=== PATIENT | male | born 1950 | race Caucasian/White ===

== ENCOUNTER 2017-06-05 11:30 | Outpatient (RCR) | payer SELFPAY ==
[2017-05-12 01:25] VITALS: BP 148/85; PULSE 85; RESP 16; TEMP 36.8; BMI 23.0
[2017-05-16 10:03] VITALS: BP 137/78; PULSE 81; RESP 20; TEMP 36.8; BMI 23.0
--- NOTE | 2017-05-16 15:25 | PCM.WC.PN ---
(1) Toe ulcer, right Status: Acute Current Visit: Yes Code(s): L97.519 - Non-pressure chronic ulcer of other part of right foot with unspecified severity (2) Peripheral arterial disease Status: Chronic Current Visit: Yes Code(s): I73.9 - Peripheral vascular disease, unspecified (3) Tobacco abuse Status: Chronic Current Visit: Yes Code(s): Z72.0 - Tobacco use Type of Wound Date of Service: 05/17/17 Chief Complaint: Right Great toe pain and Ulcer. History of Wound: Mr. Sinclair is a 67yo with past medical history of peripheral arterial disease status post left lower extremity stenting and tobacco abuse who is here for a second opinion and wound care. He was in a stable state of health until about 1 month ago when he noted an ingrowing toenail of his right great toe which he poked at. He Subsequently developed a blister which progressed to 2 blisters that ended up rupturing. He had tried to manage it at home with [id number] antibiotic ointment however he presented to his primary care provider after he continued having worsening toe pain and poor wound healing. He was referred to podiatry and per patient and his daughter, amputation of his toe was suggested. They however do not agree with his assessment and so are here to seek other possibilities. They had been previously referred to vascular surgery however this has not been followed through. After the stenting of his left lower extremity, stenting of his right lower extremity was also recommended however, patient did not follow through. He has actively smoked a pack a day for greater than 55 years. He is currently just on a baby aspirin daily. At some point, there was puslike discharge from the wound site and patient had been on Keflex which he has now completed. He otherwise feels well and denies chills, fever, nausea or vomiting. Progress of Wound: Mr. Sinclair presents here today for follow up. He is yet to be seen by a Vascular surgeon. Right great toe is still very tender. He states that they have not noted any worsening however no improvement also. He denies any discharge from the site. They have been dressing daily with Aquacel. He is still currently smoking every day. - Physical Exam Vital Signs Temp Pulse Resp BP 98.2 F 81 20 H 137/78 H 05/16/17 10:03 05/16/17 10:03 05/16/17 10:03 05/16/17 10:03 General: Alert, Oriented x3, Cooperative HEENT: Atraumatic, Normocephalic Oral: Moist Mucosa Neck: Supple, No JVD Cardiovascular: Regular rate, Regular Rhythm, Normal S1, Normal S2 Abdomen: Soft, Non Tender Extremities: No cyanosis, No edema Wound Measurements and Assessment - Nurse 1 - General Ulcer Measurement Start: 05/16/17 09:56 Freq: Status: Active Protocol: Activity Type Activity Date Activity User E-Sign Co-Sign Detail Recorded Client Recorded Date Recorded By Document 05/16/17 10:03 DL [id number] 05/16/17 10:08 DL 05/16/17 10:03 Wound Center Nurse 1 [Ulcer Assessment Protocol: WC.WD.LOC] #1- RT GR TOE -Current Size (cm) - Length 1.6 -Current Size (cm) - Width 2 -Current Size (cm) - Depth 0.1 -Total Square Cm 3.2 -Photo Taken No -Exudate Amt None Present (0 %) -Wound Margin Distinct, Outline Attached -Granulation Amt None Present (0 %) -Necrosis Amt Large (67-100%) -Necrotic Tissue Type Eschar -Structure Exposed N/A -Texture (Denisa-wound Skin Appearance) No Abnormality -Moisture (Denisa-wound Skin Appearance No Abnormality ) -Color (Denisa-wound Skin Appearance) Erythema -Temperature (Denisa-wound Skin No Abnormality Appearance) (Pt Warm) -Tenderness on Palpation (Denisa-wound Yes Skin Appearance) -Ulcer Cleansing Rinsed/ Irrigated with Saline -Foul Odor after Cleansing No -Anesthetic Used 4% Lidocaine Solution - Nurse 2 - General Ulcer CM Notes Start: 05/16/17 09:56 Freq: Status: Active Protocol: Activity Type Activity Date Activity User E-Sign Co-Sign Detail Recorded Client Recorded Date Recorded By Document 05/16/17 12:01 DV [id number] 05/16/17 12:03 DV 05/16/17 12:01 Wound Center Nurse 2 [Procedure/Treatment] -Time 12:03 -Correct Patient Yes -Correct Side, Site, Position Yes -Correct Procedure Yes -Procedure Performed No [See Physician Procedure note for Specifics] Pain Scale: 0-10 Numeric [Pain] -Is Patient Pain Free? Yes Musculoskeletal: No Muscle Wasting Neurological: Cranial nerves II-XII grossly intact Debridement Note Post-Debridement Measurements/Treatment WC - Nurse 2 - General Ulcer CM Notes Start: 05/16/17 09:56 Freq: Status: Active Protocol: Activity Type Activity Date Activity User E-Sign Co-Sign Detail Recorded Client Recorded Date Recorded By Document 05/16/17 12:01 DV [id number] 05/16/17 12:03 DV 05/16/17 12:01 Wound Center Nurse 2 #1- RT GR TOE -Time 12:03 -Correct Patient Yes -Correct Side, Site, Position Yes -Correct Procedure Yes -Procedure Performed No Pain Scale: 0-10 Numeric Is Patient Pain Free? Yes No debridement was completed today - Patient needs immediate vascular assessment first. Assessment/Plan Active Problems Peripheral arterial disease (Chronic) Tobacco abuse (Chronic) Toe ulcer, right (Acute) Assessment: Left great toe ulcers most probably vascular ulcers in a patient with peripheral arterial disease. Plan: Mr. Sinclair is here today for follow-up however he is yet to see a vascular surgeon. He still experiences a lot of pain in his right great toe however there seems to be no worsening. Still necrotic tissue over both ulcers and so unstageable. He also still currently smoking. Vascular study reports from [facility] reviewed showed severe/critical PAD in his right great toe and recommendation at that time also was for vascular surgery intervention/hospitalization however patient declined. We will again refer him to Dr. Ziegler. No debridement was done at this time. I did explain to patient that he may require amputation of the digit if vascular intervention is not possible he is willing to follow this route if all is options have been exhausted. He was advised on the urgency of vascular evaluation/assesement. Again encouraged patient to quit smoking. Prescription for pain relief with ibuprofen 600 mg 3 times daily as needed was given. Continue Aquacel dressing over wound with loose Fady covering. over it. Follow-up in 1 week.
--- NOTE | 2017-05-16 15:35 | PN.PCM_ITS ---
(1) Toe ulcer, right Status: Acute Current Visit: Yes Code(s): L97.519 - Non-pressure chronic ulcer of other part of right foot with unspecified severity (2) Peripheral arterial disease Status: Chronic Current Visit: Yes Code(s): I73.9 - Peripheral vascular disease, unspecified (3) Tobacco abuse Status: Chronic Current Visit: Yes Code(s): Z72.0 - Tobacco use Type of Wound Date of Service: 05/17/17 Chief Complaint: Right Great toe pain and Ulcer. History of Wound: Mr. Sinclair is a 67yo with past medical history of peripheral arterial disease status post left lower extremity stenting and tobacco abuse who is here for a second opinion and wound care. He was in a stable state of health until about 1 month ago when he noted an ingrowing toenail of his right great toe which he poked at. He Subsequently developed a blister which progressed to 2 blisters that ended up rupturing. He had tried to manage it at home with [id number] antibiotic ointment however he presented to his primary care provider after he continued having worsening toe pain and poor wound healing. He was referred to podiatry and per patient and his daughter, amputation of his toe was suggested. They however do not agree with his assessment and so are here to seek other possibilities. They had been previously referred to vascular surgery however this has not been followed through. After the stenting of his left lower extremity, stenting of his right lower extremity was also recommended however, patient did not follow through. He has actively smoked a pack a day for greater than 55 years. He is currently just on a baby aspirin daily. At some point, there was puslike discharge from the wound site and patient had been on Keflex which he has now completed. He otherwise feels well and denies chills, fever, nausea or vomiting. Progress of Wound: Mr. Sinclair presents here today for follow up. He is yet to be seen by a Vascular surgeon. Right great toe is still very tender. He states that they have not noted any worsening however no improvement also. He denies any discharge from the site. They have been dressing daily with Aquacel. He is still currently smoking every day. - Physical Exam Vital Signs Temp Pulse Resp BP 98.2 F 81 20 H 137/78 H 05/16/17 10:03 05/16/17 10:03 05/16/17 10:03 05/16/17 10:03 General: Alert, Oriented x3, Cooperative HEENT: Atraumatic, Normocephalic Oral: Moist Mucosa Neck: Supple, No JVD Cardiovascular: Regular rate, Regular Rhythm, Normal S1, Normal S2 Abdomen: Soft, Non Tender Extremities: No cyanosis, No edema Wound Measurements and Assessment - Nurse 1 - General Ulcer Measurement Start: 05/16/17 09:56 Freq: Status: Active Protocol: Activity Type Activity Date Activity User E-Sign Co-Sign Detail Recorded Client Recorded Date Recorded By Document 05/16/17 10:03 DL [id number] 05/16/17 10:08 DL 05/16/17 10:03 Wound Center Nurse 1 [Ulcer Assessment Protocol: WC.WD.LOC] #1- RT GR TOE -Current Size (cm) - Length 1.6 -Current Size (cm) - Width 2 -Current Size (cm) - Depth 0.1 -Total Square Cm 3.2 -Photo Taken No -Exudate Amt None Present (0 %) -Wound Margin Distinct, Outline Attached -Granulation Amt None Present (0 %) -Necrosis Amt Large (67-100%) -Necrotic Tissue Type Eschar -Structure Exposed N/A -Texture (Denisa-wound Skin Appearance) No Abnormality -Moisture (Denisa-wound Skin Appearance No Abnormality ) -Color (Denisa-wound Skin Appearance) Erythema -Temperature (Denisa-wound Skin No Abnormality Appearance) (Pt Warm) -Tenderness on Palpation (Denisa-wound Yes Skin Appearance) -Ulcer Cleansing Rinsed/ Irrigated with Saline -Foul Odor after Cleansing No -Anesthetic Used 4% Lidocaine Solution - Nurse 2 - General Ulcer CM Notes Start: 05/16/17 09:56 Freq: Status: Active Protocol: Activity Type Activity Date Activity User E-Sign Co-Sign Detail Recorded Client Recorded Date Recorded By Document 05/16/17 12:01 DV [id number] 05/16/17 12:03 DV 05/16/17 12:01 Wound Center Nurse 2 [Procedure/Treatment] -Time 12:03 -Correct Patient Yes -Correct Side, Site, Position Yes -Correct Procedure Yes -Procedure Performed No [See Physician Procedure note for Specifics] Pain Scale: 0-10 Numeric [Pain] -Is Patient Pain Free? Yes Musculoskeletal: No Muscle Wasting Neurological: Cranial nerves II-XII grossly intact Debridement Note Post-Debridement Measurements/Treatment WC - Nurse 2 - General Ulcer CM Notes Start: 05/16/17 09:56 Freq: Status: Active Protocol: Activity Type Activity Date Activity User E-Sign Co-Sign Detail Recorded Client Recorded Date Recorded By Document 05/16/17 12:01 DV [id number] 05/16/17 12:03 DV 05/16/17 12:01 Wound Center Nurse 2 #1- RT GR TOE -Time 12:03 -Correct Patient Yes -Correct Side, Site, Position Yes -Correct Procedure Yes -Procedure Performed No Pain Scale: 0-10 Numeric Is Patient Pain Free? Yes No debridement was completed today - Patient needs immediate vascular assessment first. Assessment/Plan Active Problems Peripheral arterial disease (Chronic) Tobacco abuse (Chronic) Toe ulcer, right (Acute) Assessment: Left great toe ulcers most probably vascular ulcers in a patient with peripheral arterial disease. Plan: Mr. Sinclair is here today for follow-up however he is yet to see a vascular surgeon. He still experiences a lot of pain in his right great toe however there seems to be no worsening. Still necrotic tissue over both ulcers and so unstageable. He also still currently smoking. Vascular study reports from [facility] reviewed showed severe/critical PAD in his right great toe and recommendation at that time also was for vascular surgery intervention/ hospitalization however patient declined. We will again refer him to Dr. Ziegler. No debridement was done at this time. I did explain to patient that he may require amputation of the digit if vascular intervention is not possible he is willing to follow this route if all is options have been exhausted. He was advised on the urgency of vascular evaluation/assesement. Again encouraged patient to quit smoking. Prescription for pain relief with ibuprofen 600 mg 3 times daily as needed was given. Continue Aquacel dressing over wound with loose Fady covering. over it. Follow-up in 1 week.
== END 2017-06-09 23:59 ==
LOC: WC 11:30
PROVIDERS: Family Provider Student in an Organized Health Care Education/Training Program; PCP Student in an Organized Health Care Education/Training Program; Visit Provider Internal Medicine
DX: I73.9 Peripheral vascular disease, unspecified (principal); F17.200 Nicotine dependence, unspecified, uncomplicated; Z79.82 Long term (current) use of aspirin; L97.519 Non-pressure chronic ulcer of other part of right foot with unspecified severity
CPT/HCPCS: 99212; 99213; G0463

== ENCOUNTER → 2017-09-11 10:56 | Outpatient (CLI) | payer MEDICARE, MEDICAID, SELFPAY ==
--- NOTE | 2017-09-11 11:01 | EKG12_ITS ---
Test Reason : SOB Blood Pressure : / mmHG Vent. Rate : 082 BPM Atrial Rate : 082 BPM P-R Int : 130 ms QRS Dur : 098 ms QT Int : 376 ms P-R-T Axes : 076 016 069 degrees QTc Int : 439 ms Normal sinus rhythm with sinus arrhythmia Normal ECG Confirmed by CECY WASHINGTON, NOREEN ([id number]), market editor FILEMON LIN ([id number]) on 09/13/2017 12:51:03 PM Referred By: Kishore Shen Confirmed By:NOREEN SAM MD
[2017-09-11 12:18] LABS: ALB/GLOB Ratio 0.7 RATIO (0.9-2.4); AST(SGOT) 18 U/L (15-37); Alanine Aminotransfer ALT/SGPT 14 U/L (16-61); Albumin, Serum 3.3 g/dL (3.2-5.0); Alkaline Phosphatase 149 U/L (45-117); Anion Gap 8 (5-15); BUN 14 mg/dL (7-18); BUN/Creat Ratio 17.8 RATIO (10-20); Chloride 106 mmol/L (98-107); Creatinine, Serum 0.79 mg/dL (0.70-1.30); EST Glomerular Filtration Rate 105 mL/min (>60); Est Glom Filt Rate - Afr Amer 127 mL/min (>60); Globulin 4.7 g/dL (2.2-4.2); Glucose 89 mg/dL (74-106); Potassium 3.9 mmol/L (3.5-5.1); Sodium Level 140 mmol/L (136-145)
== END ==
PROVIDERS: Family Provider Internal Medicine; PCP Internal Medicine; Visit Provider Nurse Practitioner Family
DX: I73.9 Peripheral vascular disease, unspecified (principal); R06.00 Dyspnea, unspecified
CPT/HCPCS: 36415; 80053; 93005

== ENCOUNTER 2018-07-30 16:27 | Emergency (ER) | payer MEDICARE, MEDICAID, SELFPAY ==
[2018-07-18 13:16] VITALS: BMI 21.4
[2018-07-30 16:27] VITALS: BP 125/68; PULSE 76; RESP 16; TEMP 36.7; O2SAT 99; BMI 23.0
--- NOTE | 2018-07-30 17:16 | RAD_ITS ---
STUDY: X-RAY - RIGHT ANKLE REASON FOR EXAM: Male, 68 years old. Lateral pain TECHNIQUE: 3 view(s) of the ankle. COMPARISON: None. FINDINGS: Normal visualized distal tibia and fibula. Normal medial and lateral malleoli. Normal tibiotalar articulation and ankle mortise. Normal visualized talus and calcaneus. The visualized subtalar, talonavicular, calcaneocuboid and tarsal articulations are normal. The soft tissue structures are unremarkable. RAD/Ankle min 3 Views IMPRESSION: Normal x-ray examination of the ankle. Electronically Signed: Maurisio Christy MD at 17:50 EST , Service support ,
--- NOTE | 2018-07-30 18:17 | ED.DCSUM_ITS ---
- ER Visit Summary Date of Service: 07/30/18 Chief Complaint: [Pain to right foot and ankle] History of Present Illness: The patient is a 68 M [presents the emergency department complaint of pain in his right foot and ankle that has had for over 3 weeks. Patient states that 3 weeks ago he was cleaning snow when he developed pain in his right ankle. Patient was seen in the emergency department and noted to have DVT and required fasciotomy apparently. Patient also has history of claudication and peripheral artery disease. Patient sees Dr. Scot Yarbrough for his vascular issues. Patient is currently on Plavix as well as Eliquis. Patient states that his visiting nurse told him that he needed to get evaluated today because at times he is noted discoloration to the small toe of the right foot. Patient is already had his great toe surgically resected. Patient also had fasciotomy to the right lateral calf and has a wound VAC on it and several days ago they noticed some faint erythema inferior to the wound VAC and patient was started on antibiotics yesterday. Patient had no fever. He denies any injury to the ankle.] Physical Examination: [HEENT-PERRLA, EOMI. Cranial nerves II through XII grossly intact. TMs clear. Mucous membranes moist. No adenopathy. Cardiovascular-regular rate and rhythm without murmur or ectopy Lungs-clear to auscultation, chest wall stable without crepitus or subcu emphysema Abdomen-normoactive bowel sounds, soft, nontender, no rebound or rigidity, no peritoneal signs. Extremities-intact ?4, normal range of motion, normal pulses, atraumatic. Right foot-patient has surgically absent great toe. There is a small area of ecchymosis or dark discoloration to the nail of the small toe. Patient has diminished cap refill of 7 seconds to the toe. I am able to palpate a dorsal pedal pulse as well as a popliteal pulse however I am unable to palpate a posterior tibial pulse. There is minimal erythema inferior to the wound VAC and wound.] Test Results: [X-ray of the right ankle was obtained at the request the patient has he has been having pain and he states nobody is addressed his ankle pain. X-ray was normal.] Emergency Department Course and Treatment: [I discussed case with Dr. Scot Yarbrough who knows the patient.] Apparently patient had an appointment to see Dr. Yarbrough today and missed it. Patient stated that it was due to bad weather. At this point it was not felt that patient would need any further workup regarding his leg based on our findings here. Dr. Yarbrough asked that patient follow-up with his office next Saturday. Patient is known to have peripheral vascular disease and it is not felt that he has an acute occlusion. Treatment Plan: [Follow-up with Dr. Yarbrough in 1 week.] Disposition: [Discharged home in stable condition.] Impression: [Peripheral vascular disease Cellulitis right leg.] This note was generated with [employer] dictation software. It may contain incorrect words, spelling, and punctuation that were not noted in review of the chart prior to signing ED Disposition - Plan for ED Patient: Referrals: Cristopher Heart MD [Primary Care Provider] -
--- NOTE | 2018-07-30 18:21 | ED.DEP ---
ED Disposition - Plan for ED Patient: Instructions: Understanding Peripheral Artery Disease, ED Infec Skin Cellulitis Referrals: Scot Yarbrough MD [STAFF PHYSICIAN] - 5-7 Days
[2018-07-30 18:36] VITALS: BP 148/75; PULSE 68; RESP 14; RESP 17
== END 2018-07-30 18:37 | disposition home or self-care (01) ==
LOC: ED 17:30
PROVIDERS: Emergency Provider Emergency Medicine; Family Provider Internal Medicine; PCP Internal Medicine
DX: I73.9 Peripheral vascular disease, unspecified (principal); L03.115 Cellulitis of right lower limb; M25.571 Pain in right ankle and joints of right foot; J44.9 Chronic obstructive pulmonary disease, unspecified; Z86.718 Personal history of other venous thrombosis and embolism; Z79.01 Long term (current) use of anticoagulants; Z79.899 Other long term (current) drug therapy; Z87.891 Personal history of nicotine dependence
CPT/HCPCS: 73610; 99282

== ENCOUNTER 2018-08-06 12:59 | Outpatient (RCR) | payer MEDICARE, MEDICAID, SELFPAY ==
[2018-08-01 11:34] VITALS: BMI 23.0
[2018-08-06 13:29] VITALS: BP 144/84; PULSE 82; RESP 18; TEMP 37; BMI 23.0
--- NOTE | 2018-08-06 15:11 | HP.PCM_ITS ---
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 Status: Chronic Current Visit: Yes Code(s): L97.913 - Non-pressure chronic ulcer of unspecified part of right lower leg with necrosis of muscle (2) Edema leg Status: Chronic Current Visit: Yes Code(s): R60.0 - Localized edema (3) Venous insufficiency Status: Suspected Current Visit: Yes Code(s): I87.2 - Venous insufficiency (chronic) (peripheral) (4) Malnutrition Status: Chronic Current Visit: Yes Code(s): E46 - Unspecified protein- calorie malnutrition (5) Right leg DVT Status: Resolved Current Visit: Yes Code(s): I82.401 - Acute embolism and thrombosis of unspecified deep veins of right lower extremity (6) Tobacco abuse Status: Chronic Current Visit: Yes Code(s): Z72.0 - Tobacco use (7) Peripheral arterial occlusive disease Status: Chronic Current Visit: No Code(s): I77.9 - Disorder of arteries and arterioles, unspecified Comment: Ischemic RLE 07/04/18 History of Present Illness Date of Service: 08/06/18 Chief Complaint: Leg ulcer right History of Wound: Mr. Sinclair is a 68yo with past medical history of atrial fibrillation, peripheral arterial disease status post left lower extremity stenting and tobacco abuse presents for a new right leg ulcer with an onset within the last month. His pain is moderate. He had a reported deep venous thrombosis of the right leg and developed subsequent compartment syndrome. He underwent surgical fasciotomy on July 07 at [facility] and has a resultant wound. He was started on Keflex to address suspected cellulitis. His daughter reports he is previously seen a vascular interventionalist however does not recall if this was recently or if it was when he had his previous right great toe ulcer site and subsequent amputation. Patient does not remember. He does have signs of claudication symptoms. He denies rest paresthesias. He is been working on quitting smoking and has not smoked for about 1 month. He has been compliant with dressing care and changes this at home daily. He does not tolerate compression dressings very well. He is with his daughter and grandchild today. He continues on anticoagulation medication. 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) Tobacco abuse (Chronic) Bilateral claudication of lower limb (Chronic) Wound of right lower extremity (Chronic) Paroxysmal atrial fibrillation (Chronic) Peripheral arterial occlusive disease (Chronic) Ischemic RLE 07/04/18 Past Medical History: Atrial fibrillation, history of deep venous thrombosis and compartment syndrome Surgical History: - - stent placement, fasciotomy Allergies/Adverse Reactions: Allergies No Known Allergies Allergy (Verified 08/01/18 11:34) Home Medications: Ambulatory Orders Medication Instructions Recorded Clopidogrel Bisulfate [Plavix] 75 mg PO DAILY 05/30/17 diltiazem 30 mg tablet 30 mg PO TID 07/18/18 oxycodone-acetaminophen 2.5 mg-325 1 tab PO ONCE 07/18/18 mg tablet Lives: With Family Smoking Status: Former smoker Review of Systems Constitutional: Reports: Malaise. Denies: Anorexia, Fever, Weakness Cardiovascular: Reports: Claudication. Denies: Chest Pain, Orthopnea Respiratory: Denies: Shortness of Breath Gastrointestinal: Denies: Diarrhea, Nausea, Vomiting Musculoskeletal: Reports: Leg Pain. Denies: Foot Pain, Muscle pain Skin: Reports: Skin Changes, Wounds Neurological: Reports: Balance problems Hematologic/ Lymphatic: Reports: Hx of blood clot - Physical Exam Vital Signs Temp Pulse Resp BP 98.6 F 82 18 144/84 H 08/06/18 13:29 08/06/18 13:29 08/06/18 13:29 08/06/18 13:29 General: Alert, Oriented x3, Cooperative HEENT: Atraumatic Extremities: No cyanosis, Capillary Refill Less than 3 Seconds - All digits bilateral, No Calf Tenderness - Current negative Yen and Watts sign bilateral, Diminished Peripheral Pulses, Edema - Bilateral lower extremities mild Skin: Ulcer/ Wound - No purulence, erythema, streaking, odor, infection or probe to bone or janel necrosis to right leg. There is granulation tissue peripherally and exposed extensor muscle bellies to the mid right leg. There is no purulence on expression or janel maceration. There is no adjacent fluctuance or bogginess on palpation. The peripheral skin is atrophic with scant hair. Wound Measurements and Assessment WC - Nurse 1 - General Ulcer Measurement Start: 08/06/18 13:29 Freq: Status: Active Protocol: Activity Type Activity Date Activity User E-Sign Co-Sign Detail Recorded Client Recorded Date Recorded By Document 08/06/18 13:29 AN [id number] 08/06/18 13:55 AN 08/06/18 13:29 Wound Center Nurse 1 [Ulcer Assessment] #2 right lower leg -Current Size (cm) - Length 15.5 -Current Size (cm) - Width 5 -Current Size (cm) - Depth 0.7 -Total Square Cm 77.5 -Date of Last Picture (Recall this 08/06/18 field) -Epithelialization None Present -Tunneling No -Undermining/Tunneling No -Circular Undermining No -Classification - Thickness Full Thickness with Exposed Support Structure -Exudate Amt Medium -Exudate Type Serosanguineous -Wound Margin Distinct, Outline Attached -Granulation Amt Large (67-100%) -Granulation Quality Red -Slough/Fibrin Yes -Necrosis Amt Small (1-33%) -Necrotic Tissue Type Adherent Slough -Structure Exposed Tendon Fascia Muscle -Texture (Denisa-wound Skin Appearance) Assessed Localized Edema Scarring -Moisture (Denisa-wound Skin Appearance Assessed ) Maceration -Color (Denisa-wound Skin Appearance) Assessed Erythema -Temperature (Denisa-wound Skin Cool/Cold Appearance) -Tenderness on Palpation (Denisa-wound Yes Skin Appearance) -Ulcer Cleansing Rinsed/ Irrigated with Saline -Foul Odor after Cleansing Yes -Anesthetic Used 4% Lidocaine Solution [Edema Assessment] -Right Calf (cm) 33.2 -Right Ankle (cm) 21.5 -Left Calf (cm) 31.5 -Left Ankle (cm) 20 WC - Nurse 2 - General Ulcer CM Notes Start: 08/06/18 13:29 Freq: Status: Active Protocol: Activity Type Activity Date Activity User E-Sign Co-Sign Detail Recorded Client Recorded Date Recorded By Document 08/06/18 14:34 [email or web address] 08/06/18 14:39 08/06/18 14:34 Wound Center Nurse 2 [Procedure/Treatment] #2 right lower leg -Time 14:34 -Correct Patient Yes -Correct Side, Site, Position Yes -Correct Procedure Yes -Procedure Performed Yes -Type of Procedure Debridement -Clinical Debridement Muscle -Post Debridement Size (cm) - Length 15.6 -Post Debridement Size (cm) - Width 5.1 -Post Debridement Size (cm) - Depth 0.7 -Total Square Cm 79.56 -Wound/Ulcer Outcome Not Healed -Ulcer Cleansing Rinsed/ Irrigated with Saline -Foul Odor after Cleansing No -Bioengineered Tissue No -Bleeding Controlled with Pressure -Offloading No -Treatment Response Procedure Tolerated Well [See Physician Procedure note for Specifics] Pain Scale: 0-10 Numeric [Pain] -Is Patient Pain Free? Yes Musculoskeletal: No Tenderness to Palpation of Joints or Extremities, Muscle Wasting, Tenderness - Ulcer manipulation pain noted, - - Hallux amputation noted. Compartments remain soft to palpate right lower extremity Neurological: - - Lack of full epicritic sensation noted. Foot and ankle dermatomes are also equal to palpate bilateral lower extremity except there is slight diminished light touch abilities on the right plantar foot Psych/Mental Status: Normal Affect, Appropriate Debridement Note Post-Debridement Measurements/Treatment WC - Nurse 2 - General Ulcer CM Notes Start: 08/06/18 13:29 Freq: Status: Active Protocol: Activity Type Activity Date Activity User E-Sign Co-Sign Detail Recorded Client Recorded Date Recorded By Document 08/06/18 14:34 [id number] 08/06/18 14:39 08/06/18 14:34 Wound Center Nurse 2 #2 right lower leg -Time 14:34 -Correct Patient Yes -Correct Side, Site, Position Yes -Correct Procedure Yes -Procedure Performed Yes -Type of Procedure Debridement -Clinical Debridement Muscle -Post Debridement Size (cm) - Length 15.6 -Post Debridement Size (cm) - Width 5.1 -Post Debridement Size (cm) - Depth 0.7 -Total Square Cm 79.56 -Wound/Ulcer Outcome Not Healed -Ulcer Cleansing Rinsed/ Irrigated with Saline -Foul Odor after Cleansing No -Bioengineered Tissue No -Bleeding Controlled with Pressure -Offloading No -Treatment Response Procedure Tolerated Well Pain Scale: 0-10 Numeric Is Patient Pain Free? 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 Peripheral vascular disease. Leg edema and rule out venous insufficiency. Resolved cellulitis. Malnutrition suspected. Recent tobacco use. Right leg pain Plan: I reviewed and discussed his case. His medical records from prior [facility] medical facilities will be requested. Subcutaneous and tendon necrotic excisional debridement was performed as noted in the clinical panel. To change dressing every 3 days with Adaptic and a wound VAC set at 150 mmHg continuous was recommended; home health will be ordered to assist with this. He already has a wound VAC. He was reassured no local signs of infection or other ulcers were noted. To monitor for signs of infection he demonstrates understanding. To keep pressure off this ulcer by avoiding lying on his right lateral leg. To reduce unnecessary pressure by wearing a light Tubigrip compression garment. To optimize healing by taking nutritional supplementation, [place], a prescription was provided he was advised on proper use. Noninvasive vascular studies and venous reflux studies were ordered. I also request previous vascular notes from his other hospital that he initially obtained treatment at. Baseline labs were ordered including CBC and CMP and prealbumin and the results are pending. Additional antibiotics were not recommended at this time due to lack of signs of infection. To continue with primary care physician and previous surgeon for anticoagulation management. Upon continued stabilization of her review of diagnostic data, advance wound care product application operating room debridement will be considered. The purpose, indication, planned procedure options, and anticipated healing time management discussed in detail with the patient. I answered all his questions. To return to the wound healing center in 1 week or call sooner if is any questions or concerns.
[2018-08-06 18:20] LABS: Absolute Lymphocyte Count 1.99 X10^3/ul (0.83-4.51); Absolute Neutrophil Count 6.4 X10^3/uL (2.0-7.7); Basophil# 0.02 X10^3/uL; Basophil% 0.2 % (0-1); Eosinophil# 0.27 X10^3/uL; Eosinophils% 2.9 % (0-5); Hematocrit 39.5 % (40-54); Hemoglobin 12.9 g/dl (13.0-16.5); Lymphocyte # 1.99 X10^3/ul (4.0); Lymphocyte % 21.1 % (19-41); Mean Corp Hgb Conc 32.7 g/gl (32-36); Mean Corpuscular Hgb 27.7 pg (27.0-32.0); Mean Corpuscular Volume 84.8 fL (80-94); Mean Platelet Vol. 9.9 fl (6.2-12.0); Monocyte# 0.77 X10^3/uL; Monocyte% 8.1 % (0-10); Neutrophil # 6.37 X10^3/uL (2.7-7.7); Neutrophil % 67.4 % (47-70); Platelet Count 337 K/mm3 (150-450); RBC Distribution Width CV 16.1 % (11.6-14.6); RBC Distribution Width SD 49.3 fl (35.1-43.9); Red Blood Count 4.66 M/mm3 (4.6-6.2); White Blood Count 9.5 K/mm3 (4.4-11.0)
[2018-08-06 18:22] LABS: POSITIVE COUNT NO; POSITIVE DIFFERENTIAL NO; POSITIVE MORPHOLOGY NO
[2018-08-06 18:55] LABS: ALB/GLOB Ratio 0.6 RATIO (0.9-2.4); AST(SGOT) 24 U/L (15-37); Alanine Aminotransfer ALT/SGPT 21 U/L (16-61); Albumin, Serum 3.2 g/dL (3.2-5.0); Alkaline Phosphatase 147 U/L (45-117); Anion Gap 10 (5-15); BUN 22 mg/dL (7-18); BUN/Creat Ratio 23.2 RATIO (10-20); Calcium,Total 9.5 mg/dL (8.5-10.1); Chloride 103 mmol/L (98-107); Creatinine, Serum 0.95 mg/dL (0.70-1.30); EST Glomerular Filtration Rate 84 mL/min (>60); Est Glom Filt Rate - Afr Amer 102 mL/min (>60); Estimated Creatinine Clearance 83.42 ml/min; Globulin 5.8 g/dL (2.2-4.2); Glucose 80 mg/dL (74-106); Potassium 4.7 mmol/L (3.5-5.1); Prealbumin 22.2 mg/dL (20.0-40.0); Sodium Level 138 mmol/L (136-145)
== END 2018-08-07 23:59 ==
LOC: WC 12:59
PROVIDERS: Family Provider Internal Medicine; PCP Internal Medicine; Visit Provider Podiatrist
DX: I73.9 Peripheral vascular disease, unspecified (principal); R60.0 Localized edema; Z72.0 Tobacco use; L97.813 Non-pressure chronic ulcer of other part of right lower leg with necrosis of muscle; I87.2 Venous insufficiency (chronic) (peripheral); I48.91 Unspecified atrial fibrillation; Z86.718 Personal history of other venous thrombosis and embolism; Z79.02 Long term (current) use of antithrombotics/antiplatelets; Z87.891 Personal history of nicotine dependence
CPT/HCPCS: 11043; 11046; 80053; 84134; 85025; 97606; 99213; G0463

== ENCOUNTER 2018-08-13 10:44 | Inpatient (IN) | payer MEDICARE, MEDICAID, SELFPAY ==
[2018-08-13 09:22] VITALS: BMI 23.0
[2018-08-13 11:36] VITALS: BMI 21.4
[2018-08-13 11:41] VITALS: BMI 21.4
[2018-08-13 12:40] VITALS: BP 125/71; PULSE 61; RESP 16; TEMP 36.8; O2SAT 96
[2018-08-13] MEDS: HYDROcodone Bitartrate/Apap 5/325 Tablet PO (14:32)
--- NOTE | 2018-08-13 14:33 | HP.PCM_ITS ---
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 The patient is a 68 year old M who presents from podiatry office, Dr. Titus due to infected right leg wound. He has been following with wound center for right lower extremity wound following DVT/compartmental syndrome with fasciotomy 07/07/2018 at [facility]. He reports he completed antibiotic regimen approximately a week ago. He reports fever and chills at home as well as increased right lower extremity pain and odor. He was seen by podiatry today and referred to hospital for IV antibiotics and debridement. He lives with his daughter and reports he has been becoming progressively weak over the past few weeks. He reports he typically goes to the bathroom and back to bed with little other ambulation. He denies nausea, vomiting. Denies other associated complaints. He has a history of peripheral vascular disease, paroxysmal atrial fibrillation, history of tobacco use. 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) Tobacco abuse (Chronic) Bilateral claudication of lower limb (Chronic) Wound of right lower extremity (Chronic) Paroxysmal atrial fibrillation (Chronic) Peripheral arterial occlusive disease (Chronic) Ischemic RLE 07/04/18 Medical History: Medical History (Last Reviewed 08/01/18 @ 11:55 by Nick Hastings MD) 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) I05.9 Bicuspid aortic valve (Suspected) Q23.1 Bilateral claudication of lower limb (Chronic) I73.9 Wound of right lower extremity (Chronic) S81.801A Paroxysmal atrial fibrillation (Chronic) I48.0 Peripheral arterial occlusive disease (Chronic) I77.9 Ischemic RLE 07/04/18 COPD (chronic obstructive pulmonary disease) J44.9 GERD (gastroesophageal reflux disease) K21.9 Insomnia G47.00 Compartment syndrome T79.A0XA Nicotine abuse Z72.0 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 Allergies No Known Allergies Allergy (Verified 08/01/18 11:34) Home Medications: Ambulatory Orders Medication Instructions Recorded Clopidogrel Bisulfate [Plavix] 75 mg PO DAILY 05/30/17 oxycodone-acetaminophen 2.5 mg-325 1 tab PO Q6H PRN PRN 07/18/18 mg tablet Diltiazem HCl 120 mg PO DAILY 08/13/18 Rivaroxaban [Xarelto] 20 mg PO DAILY 08/13/18 Surgical History: Surgical History (Last Reviewed 08/13/18 @ 15:01 by PAM Monet) History of angioplasty of peripheral vessel Onset Date: 07/04/18 Z98.62 LLE stent and [employer] 2016 and RLE Thrombectomy and [employer] 2018 History of left heart catheterization Z98.890 History of vascular surgery Z98.890 RLE fasciotomy 06/2018 Surgical History: - - Right great toe amputation, dental surgery-teeth removal. Psychiatric History: No pertinent psych hx Lives: With Family Smoking Status: Former smoker Alcohol: None Drugs: None - *Family History Maternal Family History: Family History (Last Reviewed 08/13/18 @ 15:01 by PAM Monet) Mother Arthritis Diabetes Breast cancer Brother Hypertension Father CVA (cerebral vascular accident) Paternal Family History: Family History (Last Reviewed 08/13/18 @ 15:01 by PAM Monet) Mother Arthritis Diabetes Breast cancer Brother Hypertension Father CVA (cerebral vascular accident) Review of Systems Constitutional: Reports: Chills, Fever, Malaise, Weakness HEENT: Denies: Head Aches, Sinus Congestion, Sinus Drainage Cardiovascular: Denies: Chest Pain, Light Headedness, Palpitations, Syncope Respiratory: Denies: Cough, Shortness of breath at rest, Sputum production Gastrointestinal: Denies: Abdominal Pain, Nausea, Vomiting Genitourinary: Denies: Dysuria Musculoskeletal: Reports: - - RLE pain. Denies: Joint Pain, Joint Tenderness Skin: Reports: - - RLE wound Neurological: Denies: Numbness, Tingling, Focal weakness Psychiatric: Denies: Anxiety, Depression, Homicidal Ideations, Suicidal Ideations Hematologic/ Lymphatic: Denies: Easy Bruising, Easy Bleeding VTE Information - Inpt Only VTE Present on Admission: No VTE Mechan Device Prophylaxis: None VTE Pharm Prophylaxis ordered?: Yes - Physical Exam General: Alert, Oriented x3, Cooperative HEENT: Atraumatic, PERRLA, EOMI, Normocephalic Neck: Supple, No JVD, Negative Carotid Bruits Lungs: Clear to auscultation, Normal air movement Cardiovascular: Regular rate, Regular Rhythm, Normal S1, Normal S2, No murmurs Abdomen: Bowel Sounds Present, Soft, Non Tender, Non-Distended Extremities: No clubbing, No cyanosis, No edema Skin: - - RLE wound, dressing intact. Musculoskeletal: No Tenderness to Palpation of Joints or Extremities Neurological: Cranial nerves II-XII grossly intact, Neuro grossly intact Psych/Mental Status: Normal Affect, Appropriate Vital Signs Temp Pulse Resp BP Pulse Ox 98.2 F 61 16 125/71 H 96 08/13/18 12:40 08/13/18 12:40 08/13/18 12:40 08/13/18 12:40 08/13/18 12:40 Oxygen Delivery Method Room Air Weight: 158 lb Body Mass Index (BMI) 21.4 Assessment/Plan All Active Problems (Last Reviewed 08/01/18 @ 11:55 by Nick Hatsings MD) History of amputation of right foot (Resolved) Right leg DVT (Resolved) Toe ulcer, right (Resolved) 1. Chronic right leg wound, secondary to history of DVT status post thrombectomy as a result of compartment syndrome-fasciotomy 07/07/2018 at [facility]. Follows at wound center with Dr. Titus. Obtain blood cultures. IV vancomycin and IV Zosyn. Given recent DVT, patient will need bridged with heparin. Wound RN consult. Plan for debridement by Dr. Titus. Wound culture. Infectious disease consult. 2. PVD/PAD, s/p bilateral lower extremity stenting-on plavix. Follows with Dr. Yarbrough, vascular surgery. 3. Paroxysmal atrial fibrillation-continue Cardizem, Xarelto on hold. Patient reports this occurred briefly [facility] and has not recurred since, to his knowledge. 4. History of tobacco use-quit recently. Encouraged continued cessation. 5. History of DVT-on xarelto. 6. Debility, progressive weakness-secondary to #1. PT/OT. DVT prophylaxis-heparin subcu, Xarelto on hold given transfer surgery. This patient was seen by PAM Monet under the supervision of Dr. Ozuna.
[2018-08-13 15:43] LABS: Absolute Lymphocyte Count 1.66 X10^3/ul (0.83-4.51); Absolute Neutrophil Count 5.4 X10^3/uL (2.0-7.7); Basophil# 0.04 X10^3/uL; Basophil% 0.5 % (0-1); Eosinophil# 0.18 X10^3/uL; Eosinophils% 2.3 % (0-5); Hematocrit 36.9 % (40-54); Hemoglobin 11.8 g/dl (13.0-16.5); Lymphocyte # 1.66 X10^3/ul (4.0); Lymphocyte % 21.3 % (19-41); Mean Corpuscular Hgb 27.2 pg (27.0-32.0); Mean Platelet Vol. 8.8 fl (6.2-12.0); Monocyte# 0.43 X10^3/uL; Monocyte% 5.5 % (0-10); Neutrophil # 5.44 X10^3/uL (2.7-7.7); Platelet Count 383 K/mm3 (150-450); RBC Distribution Width CV 15.7 % (11.6-14.6); RBC Distribution Width SD 47.5 fl (35.1-43.9); Red Blood Count 4.34 M/mm3 (4.6-6.2); White Blood Count 7.8 K/mm3 (4.4-11.0)
[2018-08-13 15:46] LABS: POSITIVE COUNT NO; POSITIVE DIFFERENTIAL NO; POSITIVE MORPHOLOGY NO
[2018-08-13 15:49] LABS: ALB/GLOB Ratio 0.6 RATIO (0.9-2.4); AST(SGOT) 15 U/L (15-37); Alanine Aminotransfer ALT/SGPT 13 U/L (16-61); Alkaline Phosphatase 128 U/L (45-117); Anion Gap 9 (5-15); BUN 15 mg/dL (7-18); BUN/Creat Ratio 15.6 RATIO (10-20); Calcium,Total 8.9 mg/dL (8.5-10.1); Chloride 103 mmol/L (98-107); Creatinine, Serum 0.96 mg/dL (0.70-1.30); EST Glomerular Filtration Rate 83 mL/min (>60); Est Glom Filt Rate - Afr Amer 101 mL/min (>60); Estimated Creatinine Clearance 76.73 ml/min; Globulin 5.4 g/dL (2.2-4.2); Glucose 136 mg/dL (74-106); Potassium 3.8 mmol/L (3.5-5.1); Protein, Total 8.4 g/dL (6.4-8.2); Sodium Level 135 mmol/L (136-145)
--- NOTE | 2018-08-13 16:06 | PCM.RX.CS ---
Consult Pharmacy has been consulted to manage selected antiobiotic: Vancomycin Type of Consult: New start Suspected Infection: Other Labs: Sodium 135 mmol/L (136-145) L 08/13/18 15:15 Potassium 3.8 mmol/L (3.5-5.1) 08/13/18 15:15 Chloride 103 mmol/L (98-107) 08/13/18 15:15 Carbon Dioxide 23.0 mmol/L (21.0-32.0) 08/13/18 15:15 Anion Gap 9 (5-15) 08/13/18 15:15 BUN 15 mg/dL (7-18) 08/13/18 15:15 Creatinine 0.96 mg/dL (0.70-1.30) 08/13/18 15:15 Est GFR (MDRD) Af Amer 101 mL/min (>60) 08/13/18 15:15 Est GFR (MDRD) Non-Af 83 mL/min (>60) 08/13/18 15:15 BUN/Creatinine Ratio 15.6 RATIO (10-20) 08/13/18 15:15 Glucose 136 mg/dL (74-106) H 08/13/18 15:15 Weight used for dosin kg Estimated Creatinine Clearance: 77 mL/min Goal Trough: 15-20 mcg/mL Pharmacy Plan for Drug Dosing: Initial dose 1750mg IV x1 followed by 1000mg IV q12h and trough prior to 4th dose per policy. Pharmacy Service will continue to monitor and adjust dosing as required. Follow-Up Labs: Trough Vancomycin - 08/15 @ 0530
[2018-08-13] MEDS: Ensure Clear 120 ML Liquid PO ×2 (17:13→21:50)
[2018-08-13 17:51] VITALS: BP 117/78; PULSE 70; RESP 18; TEMP 36.7; O2SAT 98
[2018-08-13] MEDS: oxyCODONE 5 MG Tablet PO (19:35)
--- NOTE | 2018-08-13 21:00 | RAD_ITS ---
We are attempting to reach Tacho Baeza to discuss findings. An addendum with communication details will be sent when the communication is complete. STUDY: X-RAY - RIGHT TIBIA AND FIBULA REASON FOR EXAM: Male, 68 years old. Right lower leg wound TECHNIQUE: 2 view(s) of the tibia and fibula were obtained. COMPARISON: None. FINDINGS: Dorsal soft tissue lesion with air in the soft tissues. Stent in the proximal calf. No evidence of osteomyelitis. No osteolysis or periosteal reaction is seen. Arterial calcifications. RAD/Tibia & Fibula 2 Views IMPRESSION: Dorsal soft tissue lesion with air in the soft tissues. Necrotizing fasciitis cannot be excluded. No evidence of osteomyelitis. If there is further concern for osteomyelitis, consider correlation with three-phase bone scan or contrast-enhanced MRI. Electronically Signed: Brice Stanley MD at 7:59 EST Tel , Service support ,
[2018-08-13] MEDS: Heparin Injection (Vial) 5,000 UNIT/ML VIAL 5000 UNIT SC (21:51)
[2018-08-13 23:50] VITALS: BP 128/72; PULSE 63; RESP 18; TEMP 36.5; O2SAT 97
[2018-08-14] VITALS: RESP 18
[2018-08-14] MEDS: oxyCODONE 5 MG Tablet PO ×4 (02:08→20:19)
[2018-08-14 02:27] VITALS: BP 125/67; PULSE 61; RESP 16; TEMP 36.8; O2SAT 98
[2018-08-14] MEDS: Heparin Injection (Vial) 5,000 UNIT/ML VIAL 5000 UNIT SC ×2 (06:05→14:26)
[2018-08-14 06:47] LABS: Absolute Lymphocyte Count 1.91 X10^3/ul (0.83-4.51); Absolute Neutrophil Count 2.8 X10^3/uL (2.0-7.7); Basophil# 0.04 X10^3/uL; Basophil% 0.7 % (0-1); Eosinophil# 0.24 X10^3/uL; Eosinophils% 4.2 % (0-5); Hematocrit 36.4 % (40-54); Hemoglobin 11.4 g/dl (13.0-16.5); Lymphocyte # 1.91 X10^3/ul (4.0); Lymphocyte % 33.7 % (19-41); Mean Corp Hgb Conc 31.3 g/gl (32-36); Mean Corpuscular Hgb 26.5 pg (27.0-32.0); Mean Corpuscular Volume 84.7 fL (80-94); Mean Platelet Vol. 8.9 fl (6.2-12.0); Monocyte# 0.67 X10^3/uL; Monocyte% 11.8 % (0-10); Neutrophil # 2.79 X10^3/uL (2.7-7.7); Neutrophil % 49.4 % (47-70); Platelet Count 351 K/mm3 (150-450); RBC Distribution Width CV 15.9 % (11.6-14.6); RBC Distribution Width SD 48.4 fl (35.1-43.9); White Blood Count 5.7 K/mm3 (4.4-11.0)
[2018-08-14 06:49] LABS: POSITIVE COUNT NO; POSITIVE DIFFERENTIAL NO; POSITIVE MORPHOLOGY NO
[2018-08-14 06:52] LABS: Erythrocyte Sedimentation Rate 56 mm/hr (0-20)
[2018-08-14 08:17] VITALS: BP 121/75; PULSE 114; RESP 18; TEMP 37.1; O2SAT 98
[2018-08-14] MEDS: Ensure Clear 120 ML Liquid PO ×4 (08:24→21:09)
[2018-08-14] MEDS: dilTIAZem CD 120 MG Capsule PO (08:27)
[2018-08-14] MEDS: Clopidogrel Bisulfate 75 MG Tablet PO (08:27)
--- NOTE | 2018-08-14 10:37 | PCM.HP.ID ---
Problem List (1) Wound of right lower extremity Status: Chronic Reason for Consult: leg infection Consulted by: Dr. Ozuna History of Present Illness: The patient is a 68 year old M with PAD who presented from wound care clinic 08/[address] Titus. He was admitted to [facility] 06/2018 for sudden onset cold RLE. Seen by Dr. Yarbrough, taken for right leg angioplasty and initiation of thrombolysis on July 03, 2018, right leg angioplasty and thrombolytic check performed on July 04, 2018, and right leg fasciotomy and wound VAC placement performed on July 07, 2018. Discharged from [facility] 07/14 with wound vac over R brown. Over past 2 weeks, noticed some foul odor. Was given a one week course of keflex without improvement. Over past few days, increased redness, odor, drainage. Pain is stable. Some associated chills and sweats. Seen in clinic 08/13, sent to hospital. Wound cx and MRSA of wound sent from clinic. Now on vanc/zosyn, sx stable. Full ROS performed and neg except as noted above. 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) Tobacco abuse (Chronic) Bilateral claudication of lower limb (Chronic) Wound of right lower extremity (Chronic) Paroxysmal atrial fibrillation (Chronic) Peripheral arterial occlusive disease (Chronic) Ischemic RLE 07/04/18 Allergies/Adverse Reactions: Allergies No Known Allergies Allergy (Verified 08/01/18 11:34) Home Medications: Ambulatory Orders Medication Instructions Recorded Clopidogrel Bisulfate [Plavix] 75 mg PO DAILY 05/30/17 oxycodone-acetaminophen 2.5 mg-325 1 tab PO Q6H PRN PRN 07/18/18 mg tablet Diltiazem HCl 120 mg PO DAILY 08/13/18 Rivaroxaban [Xarelto] 20 mg PO DAILY 08/13/18 - Social History SMOKING STATUS:: Former smoker Vital Signs Temp Pulse Resp BP Pulse Ox 98.7 F 114 H 18 121/75 H 98 08/14/18 08:17 08/14/18 08:17 08/14/18 08:17 08/14/18 08:17 08/14/18 08:17 Oxygen Delivery Method Room Air Weight: 71.668 kg Body Mass Index (BMI) 21.4 Laboratory Tests Past 24 Hrs 08/13/18 08/13/18 08/14/18 15:15 15:15 06:10 WBC 7.8 5.7 RBC 4.34 L 4.30 L Hgb 11.8 L 11.4 L Hct 36.9 L 36.4 L MCV 85.0 84.7 MCH 27.2 26.5 L MCHC 32.0 31.3 L RDW 15.7 H 15.9 H RDW Differential 47.5 H 48.4 H Plt Count 383 351 MPV 8.8 8.9 Immature Gran % (Auto) 0.400 0.200 Neut % (Auto) 70.0 49.4 Lymph % (Auto) 21.3 33.7 Hancock % (Auto) 5.5 11.8 H Eos % (Auto) 2.3 4.2 Baso % (Auto) 0.5 0.7 Absolute Neuts (auto) 5.4 2.8 Absolute Lymphs (auto) 1.66 1.91 Total Counted Not Reportable Not Reportable ESR Sodium 135 L Potassium 3.8 Chloride 103 Carbon Dioxide 23.0 Anion Gap 9 BUN 15 Creatinine 0.96 Estim Creat Clear Calc 76.73 Est GFR (MDRD) Af Amer 101 Est GFR (MDRD) Non-Af 83 BUN/Creatinine Ratio 15.6 Glucose 136 H Calcium 8.9 Total Bilirubin 0.30 AST 15 ALT 13 L Alkaline Phosphatase 128 H C-React Prot Ext Range Total Protein 8.4 H Albumin 3.0 L Globulin 5.4 H Albumin/Globulin Ratio 0.6 L 08/14/18 08/14/18 06:10 06:10 WBC RBC Hgb Hct MCV MCH MCHC RDW RDW Differential Plt Count MPV Immature Gran % (Auto) Neut % (Auto) Lymph % (Auto) Hancock % (Auto) Eos % (Auto) Baso % (Auto) Absolute Neuts (auto) Absolute Lymphs (auto) Total Counted ESR 56 H Sodium Potassium Chloride Carbon Dioxide Anion Gap BUN Creatinine Estim Creat Clear Calc Est GFR (MDRD) Af Amer Est GFR (MDRD) Non-Af BUN/Creatinine Ratio Glucose Calcium Total Bilirubin AST ALT Alkaline Phosphatase C-React Prot Ext Range 43.30 H Total Protein Albumin Globulin Albumin/Globulin Ratio - Other Studies Radiology: [] reviewed Other Studies: [] Route of nutrition/ use of supplements: [] Nutritional Intake: [] IV Site: [] [place] Catheter: [] - Physical Exam General: Alert, Oriented x3, Cooperative, No apparent distress HEENT: Atraumatic, PERRLA, EOMI Neck: Supple, No Nodes Lungs: Clear to auscultation, Normal air movement Cardiovascular: Regular rate, Regular Rhythm Abdomen: Soft, Non Tender, Non-Distended Extremities: No edema Skin: Ulcer/ Wound - R brown, some odor IV Site: Peripheral, without redness Neurological: Cranial nerves II-XII grossly intact, - - weakness in R lower leg. - Assessment/Plan Antibiotics: [] Assessment/Plan: [] R brown surgical site infection - MRSA pcr of wound neg 08/13. Wound cx pending. Cont vanc/zosyn for coverage of nosocomial organisms. I&D planned for today by Dr. Titus. Will follow, thank you.
--- NOTE | 2018-08-14 13:06 | CASEMGMT ---
RN CM Note: Attempted x 2 to speak with pt. Both times he has been on phone calls and deferred meeting. Izabela LORENZO RN ACM
[2018-08-14 14:23] VITALS: BP 122/88; PULSE 63; RESP 16; TEMP 36.6; O2SAT 94
--- NOTE | 2018-08-14 14:40 | PCM.PROGNOTE ---
Subjective: This 68-year-old male with multiple comorbidities was seen bedside for infected right leg ulcer. His pain is moderate. He denies fever, chill, nausea, vomiting. He relates continued leg odor - Physical Exam General: Alert, Oriented x3, Cooperative Extremities: Capillary Refill Less than 3 Seconds, No Calf Tenderness, Diminished Peripheral Pulses, Edema - mild right leg, - - Pain with ulcer manipulation right leg and adjacent lateral compartment Skin: Ulcer/ Wound - There is a large widespread ulcer to the lateral right leg with necrotic devitalized muscle bellies and subcutaneous tissue. There is no direct probe to bone. There is continued odor and some seropurulent drainage coming from the distal wound bed. Musculoskeletal: No Tenderness to Palpation of Joints or Extremities, Muscle Wasting Neurological: Sensory exam intact to light touch and pain Psych/Mental Status: Normal Affect, Appropriate Vital Signs Temp Pulse Resp BP Pulse Ox 97.8 F 63 16 122/88 H 94 08/14/18 14:23 08/14/18 14:23 08/14/18 14:23 08/14/18 14:23 08/14/18 14:23 Oxygen Delivery Method Room Air Weight: 71.668 kg Body Mass Index (BMI) 21.4 Intake and Output for Last 24 Hours 08/12/18 08/13/18 08/14/18 23:59 23:59 23:59 Intake Total 400 / 400 2126 / 2126 Output Total 350 / 350 1180 / 1180 Balance 50 / 50 946 / 946 Laboratory Tests Past 24 Hrs 08/13/18 08/13/18 08/14/18 15:15 15:15 06:10 WBC 7.8 5.7 RBC 4.34 L 4.30 L Hgb 11.8 L 11.4 L Hct 36.9 L 36.4 L MCV 85.0 84.7 MCH 27.2 26.5 L MCHC 32.0 31.3 L RDW 15.7 H 15.9 H RDW Differential 47.5 H 48.4 H Plt Count 383 351 MPV 8.8 8.9 Immature Gran % (Auto) 0.400 0.200 Neut % (Auto) 70.0 49.4 Lymph % (Auto) 21.3 33.7 Wheeler % (Auto) 5.5 11.8 H Eos % (Auto) 2.3 4.2 Baso % (Auto) 0.5 0.7 Absolute Neuts (auto) 5.4 2.8 Absolute Lymphs (auto) 1.66 1.91 Total Counted Not Reportable Not Reportable ESR Sodium 135 L Potassium 3.8 Chloride 103 Carbon Dioxide 23.0 Anion Gap 9 BUN 15 Creatinine 0.96 Estim Creat Clear Calc 76.73 Est GFR (MDRD) Af Amer 101 Est GFR (MDRD) Non-Af 83 BUN/Creatinine Ratio 15.6 Glucose 136 H Calcium 8.9 Total Bilirubin 0.30 AST 15 ALT 13 L Alkaline Phosphatase 128 H C-React Prot Ext Range Total Protein 8.4 H Albumin 3.0 L Globulin 5.4 H Albumin/Globulin Ratio 0.6 L 08/14/18 08/14/18 06:10 06:10 WBC RBC Hgb Hct MCV MCH MCHC RDW RDW Differential Plt Count MPV Immature Gran % (Auto) Neut % (Auto) Lymph % (Auto) Wheeler % (Auto) Eos % (Auto) Baso % (Auto) Absolute Neuts (auto) Absolute Lymphs (auto) Total Counted ESR 56 H Sodium Potassium Chloride Carbon Dioxide Anion Gap BUN Creatinine Estim Creat Clear Calc Est GFR (MDRD) Af Amer Est GFR (MDRD) Non-Af BUN/Creatinine Ratio Glucose Calcium Total Bilirubin AST ALT Alkaline Phosphatase C-React Prot Ext Range 43.30 H Total Protein Albumin Globulin Albumin/Globulin Ratio Medical Necessity - Tobacco Use Smoking Status: Former smoker Assessment/Plan All Active Problems (Last Reviewed 08/01/18 @ 11:55 by Nick Hastings MD) History of amputation of right foot (Resolved) Right leg DVT (Resolved) Toe ulcer, right (Resolved) Ulcer with necrotic muscle, right leg Infection right leg Peripheral vascular disease On anticoagulation status post arterial thrombectomy Other medical comorbidities including malnutrition and atrial fibrillation I reviewed and discussed this case. His diagnostic data was reviewed including white blood cell count of 5.7, sedimentation rate 56, reactive protein 43.3. His wound cultures were reviewed from the right leg as a following: Gram-negative elissa, Streptococcus G, MRSA negative. His vital signs remained stable. His right leg x-ray do not demonstrate osseous destruction. There is a lot of free air noted and this is consistent with the large defect to the lateral leg and the anatomic fascial compartments. There does not appear to be gas in the other compartments of the leg. Infectious disease consultation is appreciated. He will continue on IV antibiotics: vanco and zosyn. His blood cultures are negative so far. His leg was copiously irrigated with normal saline, 1 L, bedside today and antimicrobial solution was applied to gauze and these were with into the distal fascial plane and wound bed. He tolerated this. Additional secondary dressing was also applied including abdominal pads, Kerlix, and Fady wrap. This will be performed again this evening. I recommend surgical widespread debridement of nonviable tendon and subcutaneous tissue and incision and drainage. The preoperative indication, planned procedure, possible benefits, risks, complications, and anticipated healing time management were discussed in detail with the patient. He understands and is amenable to proceed forward. No guarantees were made. He understands risks and complications may include but are not limited to the following: Continued infection, delayed or nonhealing, scarring, pain, chronic pain syndrome, blood clot, allergic reaction, loss of limb, function, life, loss of sensation. Informed surgical consents will be signed later today. His anticoagulation plan in this urgent situation was reviewed with his vascular surgeon, Dr. Yarbrough. The medication was temporarily stopped in preparation for surgery and will be resumed in the postoperative setting. His surgery is tentatively scheduled for 7:30 AM tomorrow morning. He will be n.p.o. at midnight and his morning oral medications will be held. All preoperative orders will be entered electronically. I answered all his questions. He understands that this may be a staged procedure and ongoing wound care and compliance will be essential for his success. Medical management, preoperative optimization, and DVT prophylaxis per primary team is appreciated. I will continue to follow him close while in house. Felisha Titus DPM, [facility] [phone]
[2018-08-14] MEDS: Vancomycin IV 1,000 MG/200 ML BAG 200 MG IV (18:20)
--- NOTE | 2018-08-14 18:54 | PN_ITS ---
Subjective: Patient was seen and examined today, the plan is for the patient to have surgery on his right leg tomorrow. Infectious diseases saw the patient today. No changes in antibiotics were made. Patient's culture done on his wound on 08/13/18 grew out group G strep. - Physical Exam General: Alert, Oriented x3, Cooperative, No apparent distress, Well developed, Well nourished HEENT: Atraumatic, PERRLA, EOMI, Normocephalic Oral: Moist Mucosa Neck: Supple, Trachea Midline, Thyroid Normal Size and Texture Lungs: Clear to auscultation, Normal air movement, No rhonchi, No wheeze, No rales Cardiovascular: Regular rate, Regular Rhythm, Normal S1, Normal S2, No murmurs, No Ectopic Activity Abdomen: Bowel Sounds Present, Soft, Non Tender, Non-Distended Extremities: No clubbing, No cyanosis, Capillary Refill Less than 3 Seconds Skin: - - Right lower leg is wrapped with surgical dressing, this was not removed for examination Neurological: Cranial nerves II-XII grossly intact, Neuro grossly intact, Sensory exam intact to light touch and pain, Coordination normal Psych/Mental Status: Normal Affect, Appropriate, Alert and oriented to time, place, person, mood and affect Vital Signs Temp Pulse Resp BP Pulse Ox 97.8 F 63 16 122/88 H 94 08/14/18 14:23 08/14/18 14:23 08/14/18 14:23 08/14/18 14:23 08/14/18 14:23 Oxygen Delivery Method Room Air Weight: 71.668 kg Body Mass Index (BMI) 21.4 Intake and Output for Last 24 Hours 08/12/18 08/13/18 08/14/18 23:59 23:59 23:59 Intake Total 400 / 400 2806 / 2806 Output Total 350 / 350 1580 / 1580 Balance 50 / 50 1226 / 1226 Laboratory Tests Past 24 Hrs 08/14/18 08/14/18 08/14/18 06:10 06:10 06:10 WBC 5.7 RBC 4.30 L Hgb 11.4 L Hct 36.4 L MCV 84.7 MCH 26.5 L MCHC 31.3 L RDW 15.9 H RDW Differential 48.4 H Plt Count 351 MPV 8.9 Immature Gran % (Auto) 0.200 Neut % (Auto) 49.4 Lymph % (Auto) 33.7 Hardin % (Auto) 11.8 H Eos % (Auto) 4.2 Baso % (Auto) 0.7 Absolute Neuts (auto) 2.8 Absolute Lymphs (auto) 1.91 Total Counted Not Reportable ESR 56 H C-React Prot Ext Range 43.30 H Medical Necessity - Tobacco Use Smoking Status: Former smoker Assessment/Plan All Active Problems (Last Reviewed 08/01/18 @ 11:55 by Nick Hastings MD) History of amputation of right foot (Resolved) Right leg DVT (Resolved) Toe ulcer, right (Resolved) #1 deep wound infection of the right lower leg with strep G-continue present antibiotic coverage, antibiotics will be adjusted per infectious diseases, patient is to have surgery for debridement tomorrow by podiatry #2 peripheral vascular disease #3 Paroxysmal atrial fibrillation #4 Hyperlipidemia Code Visit Inpatient E&M: 57450 Subs Hosp L2
[2018-08-14 20:23] VITALS: BP 142/76; PULSE 70; RESP 16; TEMP 37.1; O2SAT 98
[2018-08-15] VITALS (10 sets, daily range): BP systolic 109–137; BP diastolic 49–80; PULSE 65–72; RESP 16; TEMP 36.5–36.9; O2SAT 93–99; BMI 22.0; BMI 21.4
[2018-08-15] MEDS: oxyCODONE 5 MG Tablet PO ×3 (02:31→23:06)
--- NOTE | 2018-08-15 02:37 | EKG12_ITS ---
Test Reason : Blood Pressure : / mmHG Vent. Rate : 080 BPM Atrial Rate : 080 BPM P-R Int : 150 ms QRS Dur : 086 ms QT Int : 384 ms P-R-T Axes : 081 007 052 degrees QTc Int : 442 ms Normal sinus rhythm Normal ECG When compared with ECG of 19-AUG-2018 15:16, MANUAL COMPARISON REQUIRED, DATA IS UNCONFIRMED Confirmed by ADAM CHAHAL ([id number]), acquisitions editor TIARRA BAZAN ([id number] on 08/25/2018 5:00:28 PM Referred By: Ayana Montero Confirmed By:ADAM CHAHAL
[2018-08-15] MEDS: Vancomycin IV 1,000 MG/200 ML BAG 200 MG IV (05:10)
[2018-08-15 06:04] LABS: Anion Gap 9 (5-15); BUN 16 mg/dL (7-18); BUN/Creat Ratio 15.2 RATIO (10-20); Calcium,Total 8.8 mg/dL (8.5-10.1); Chloride 105 mmol/L (98-107); Creatinine, Serum 1.05 mg/dL (0.70-1.30); EST Glomerular Filtration Rate 75 mL/min (>60); Est Glom Filt Rate - Afr Amer 91 mL/min (>60); Estimated Creatinine Clearance 72.04 ml/min; Glucose 102 mg/dL (74-106); Potassium 3.9 mmol/L (3.5-5.1); Sodium Level 139 mmol/L (136-145)
[2018-08-15 06:07] LABS: Vancomycin, Trough Level 29.4 ug/mL (5.0-15.0)
[2018-08-15 06:19] LABS: Absolute Lymphocyte Count 1.84 X10^3/ul (0.83-4.51); Absolute Neutrophil Count 2.9 X10^3/uL (2.0-7.7); Basophil# 0.03 X10^3/uL; Basophil% 0.5 % (0-1); Eosinophil# 0.29 X10^3/uL; Eosinophils% 5.1 % (0-5); Lymphocyte # 1.84 X10^3/ul (4.0); Lymphocyte % 32.1 % (19-41); Mean Corp Hgb Conc 31.4 g/gl (32-36); Mean Corpuscular Hgb 26.7 pg (27.0-32.0); Mean Platelet Vol. 9.1 fl (6.2-12.0); Monocyte# 0.66 X10^3/uL; Monocyte% 11.5 % (0-10); Neutrophil # 2.91 X10^3/uL (2.7-7.7); Neutrophil % 50.6 % (47-70); Platelet Count 345 K/mm3 (150-450); RBC Distribution Width CV 15.7 % (11.6-14.6); RBC Distribution Width SD 48.1 fl (35.1-43.9); Red Blood Count 4.12 M/mm3 (4.6-6.2); White Blood Count 5.7 K/mm3 (4.4-11.0)
[2018-08-15 06:23] LABS: International Normalized Ratio 1.1; Partial Thromboplast Time 34.4 Seconds (24.1-36.2); Prothrombin Time (Protime)PT. 14.4 SECONDS (11.7-14.9)
[2018-08-15 06:33] LABS: POSITIVE COUNT NO; POSITIVE DIFFERENTIAL NO; POSITIVE MORPHOLOGY NO
--- NOTE | 2018-08-15 06:57 | PCM.RX.CS ---
Consult Pharmacy has been consulted to manage selected antiobiotic: Vancomycin Type of Consult: Follow-up Suspected Infection: Skin/Soft tissue Prior Doses of Antibiotics Received/Current Regimen: Vancomycin 1000mg IV q12h x2 doses, and Vancomycin 1750mg x1 dose given in the ER Labs: Sodium 139 mmol/L (136-145) 08/15/18 05:25 Potassium 3.9 mmol/L (3.5-5.1) 08/15/18 05:25 Chloride 105 mmol/L (98-107) 08/15/18 05:25 Carbon Dioxide 25.0 mmol/L (21.0-32.0) 08/15/18 05:25 Anion Gap 9 (5-15) 08/15/18 05:25 BUN 16 mg/dL (7-18) 08/15/18 05:25 Creatinine 1.05 mg/dL (0.70-1.30) 08/15/18 05:25 Est GFR (MDRD) Af Amer 91 mL/min (>60) 08/15/18 05:25 Est GFR (MDRD) Non-Af 75 mL/min (>60) 08/15/18 05:25 BUN/Creatinine Ratio 15.2 RATIO (10-20) 08/15/18 05:25 Glucose 102 mg/dL (74-106) 08/15/18 05:25 Vancomycin Trough 29.4 ug/mL (5.0-15.0) H 08/15/18 05:25 Microbiology: Pending Weight used for dosin.6 kg Estimated Creatinine Clearance: 72ml/min Goal Trough: 15-20 mcg/mL Pharmacy Plan for Drug Dosing: Pt's Vancomycin trough was due to be drawn at 0530. Dose was hung at 0510. Trough level came back at 29.4. Will redraw trough level before the next dose on 08/15/18 at 1730 Pharmacy Service will continue to monitor and adjust dosing as required. Follow-Up Labs: Trough Vancomycin - trough Labs to be done on [date and time ordered]: trough level at 1730
[2018-08-15] MEDS: Bupivacaine Mpf 0.5% 30 ML VIAL (07:41)
--- NOTE | 2018-08-15 08:36 | OP.PCM_ITS ---
Problem List (1) Infection Status: Acute (2) Wound of right lower extremity Status: Chronic Report of Operation Date of Procedure: 08/15/18 Pre-Operative Diagnosis: Right leg infection. Right leg ulcer with exposed necrotic muscle Post-Operative Diagnosis: Right leg infection. Right leg ulcer with exposed necrotic muscle Surgery/Procedure Performed:: Right leg incision and drainage. Right leg excisional debridement of nonviable muscle and subcutaneous tissue Description of Surgical Findings:: Hemostasis controlled, No tourniquet utilized Materials: Iodoform packing Complications: None Findings: No additional purulence after widespread debridement and incision and drainage was performed. See detailed operation report The patient was transported to the PACU with vital signs stable vascular status intact to the right lower extremity. He will be transferred back to the regular medical surgical floor upon continued stabilization. All of his postoperative orders were entered electronically. bacteriology professor: none - Surgeon: Felisha Titus DPM. Open End Spinning Operator: Regina [id number] Type of Anesthesia:: General - LMA, Local - Preoperative: 10 cc of 1 1 mixture of 1% later in plain and 0.5% Marcaine plain administered in local infiltrative manner to the proximal part of the wound site that did not demonstrate purulence. Estimated Blood Loss (mL): 100 mL Description of Procedure: Indications: This 68-year-old male with significant past medical history of atrial fibrillation and peripheral vascular disease was admitted to the hospital for infected widespread ulcer to the right leg with exposed necrotic tendon. In late June 2018, he underwent an arterial thrombectomy, angiogram, and subsequent fasciotomy at [facility] with vascular surgery. He has been treated with a wound VAC and local wound care and recently presented to the wound healing center about 2 weeks ago. Over the course of last week he developed an odor, increased pain, and night chills. Clinically, he developed purulence on expression and a very foul odor. He is demonstrating multi- organism growth and was admitted for IV vancomycin and Zosyn. Infectious disease is on the case. His preoperative diagnostic data was reviewed including his labs. X-ray of the right leg did demonstrate air collection in the soft tissue which correlates with the large open wound with fascial and tendon layr exposed. The preoperative indications, planned procedure, possible benefits, risks, complications, and anticipated healing time and management were discussed in detail with the patient. No guarantees were made. He understands and elects to proceed with surgery at this time. Surgical consent and limb were signed. He understands complications may include the following but are not limited to: continued infection, pain, scar formation, chronic pain, delayed or non healing, loss of sensation, loss of function, loss of limb or life, allergic reaction, blood clot, need for further surgery. He was medically preoperatively optimized by temporarily discontinuing his Xarelto. This will be resumed in the postoperative setting to continue with his post thrombectomy treatment. Procedure in detail: The patient was transported to the operating room via cart and placed on the operating table in supine position. Final verification patient, surgery, limb designation was performed via the timeout procedure. The patient is already receiving IV vancomycin and Zosyn on the medical floor. LMA was initiated by the anesthesia team. Right lower extremity was prepped and draped in the usual aseptic manner. Surgery began in the following manner: Attention was first directed to the anterior lateral leg. A 15 blade was used to extend the ulcer site (incise) distal by approximately 3 additional inches along the course of purulent drainage. It is noted that most of the exposed tendons were from the anterior compartment and devitalized tibialis anterior and extensor tendons were liquefied and devitalized and necrotic. A rongeur was next utilized to remove any devitalized tendon subcutaneous and adipose tissue. Care was taken to identify, protect, and retract all neurovascular structures throughout the entire procedure. Curettes were additionally used to debride the peripheral subcutaneous tissue and intrafascial tissue. Deep wound culture was obtained from this debrided tendon and subcutaneous tissue. No pulsatile bleeding was noted. The tourniquet was not utilized. The predebridement measurement was 15.4 cm x 5.2 cm, x 0.2.8 cm. The post drainage / debridement measurement was 25 cm x 6 cm x 3 cm. Next, copious irrigation with 3 L normal saline was used. No purulence was noted at this time and iodoform packing was placed along the fascia compartments and overlying the large defect. Saline wet-to-dry gauze were next applied on top and this was secured with a Kerlix and Fady wrap. After procedure: The patient tolerated the procedure and anesthesia well. He was transported to PACU vital signs stable vascular status intact to the right lower extremity. He will continue with medical stabilization on the medicine floor and I will follow him close while in house with serial bedside irrigation and repacking. This pa tient understands this is likely a staged procedure and additional irrigation and debridement procedures may be warranted. He understands advance wound care products, wound VAC application, grafting, and delayed closure partial closure may also be considered once the infection has resolved. I recommend he avoid laying on this site to reduce pressure. To reduce excessive walking activity. I recommend nutritional supplementation to optimize healing. To continue on IV antibiotics per infectious disease. Medical management and DVT prophylaxis per primary team is appreciated. Felisha Titus DPM, [facility] [place] Grafts/Implants Used: none - Admit VTE Documentation VTE Present on Admission: No - in current treatment for previous clot VTE Mechan Device Prophylaxis: SCD's VTE Pharm Prophylaxis ordered?: Yes
--- NOTE | 2018-08-15 09:35 | CASEMGMT ---
RN CM Assessment Presentation: Infected R leg wound secondary to Hx of DVT/thrombectomy and compartment syndrome-fasciotomy. IV Vancomycin, IV Zosyn. Pt is in surgery today, unable to participate in RN CM assessment. Chart reviewed and [facility] for prior care. PCP: Dr. Heart Specialist: Dr. Titus Pharmacy: [facility] Prescription coverage: yes Living Arrangements: mobile home, 6 steps into home. Independent with ADL's. on 07/07/18 pt was dc'd home with wound vac and is less active now. Still able to care for self. Transportation: will need to evaluate when pt available DME: wheeled walker, shower chair HHS: [facility] RN/PT. Called to [facility] to notify of admission. Will need resume order and fax dc summary/instructions on dc. PH: FX: [facility] Wound Center: was being seen 1x week. Called to notify pt is @ [facility]. DC PLAN: Home w/ Resume Home Health, RN/PT. See Green sheet for weekend dc. Izabela SAINZN RN ACM
--- NOTE | 2018-08-15 09:58 | NURSING ---
Addendum entered by Diamond May 08/15/18 10:55: RUDDY Kramer noticed that Levaquin was started and Zosyn had been d/c'ed by Dr. Titus after surgery. Called Dr to clarify if 0700 zosyn should be hung- as it was scanned this AM prior to med being d/c'ed. Dr. Titus states ok to d/c zosyn now and given Levaquin. Original Note: zosyn was not run in OR/ PACU. Started full bag of zosyn at this time.
[2018-08-15] MEDS: dilTIAZem CD 120 MG Capsule PO (10:21)
[2018-08-15] MEDS: Ensure Clear 120 ML Liquid PO ×3 (10:23→21:21)
[2018-08-15] MEDS: levoFLOXacin IV 750 MG/150 ML BAG 100 MG IV (10:47)
--- NOTE | 2018-08-15 11:56 | PCM.PN.ID ---
Patient Problems: Active and Suspected Problems (Last Reviewed 08/01/18 @ 11:55 by Nick Hastings MD) Infection (Acute) Subjective: S/p OR this AM, no fever, no n/v/d. - Physical Exam General: Alert, Cooperative, No apparent distress Lungs: Clear to auscultation, Normal air movement Cardiovascular: Regular rate, Regular Rhythm Abdomen: Soft, Non Tender, Non-Distended Skin: Incision - wrapped Vital Signs Temp Pulse Resp BP Pulse Ox 98.3 F 65 16 111/49 L 96 08/15/18 09:58 08/15/18 09:58 08/15/18 09:58 08/15/18 09:58 08/15/18 09:58 Oxygen Delivery Method Room Air Weight: 73.6 kg Body Mass Index (BMI) 22.0 Intake and Output for Last 24 Hours 08/13/18 08/14/18 08/15/18 23:59 23:59 23:59 Intake Total 400 / 400 2806 / 2806 1951 / 1951 Output Total 350 / 350 1580 / 1580 425 / 425 Balance 50 / 50 1226 / 1226 1527 / 1527 Microbiology Past 72 Hours 08/15/18 08:49 Gram Stain - Final Tissue - Leg, Right Laboratory Tests Past 24 Hrs 08/15/18 08/15/18 08/15/18 05:25 05:25 05:25 WBC 5.7 RBC 4.12 L Hgb 11.0 L Hct 35.0 L MCV 85.0 MCH 26.7 L MCHC 31.4 L RDW 15.7 H RDW Differential 48.1 H Plt Count 345 MPV 9.1 Immature Gran % (Auto) 0.200 Neut % (Auto) 50.6 Lymph % (Auto) 32.1 [place] % (Auto) 11.5 H Eos % (Auto) 5.1 H Baso % (Auto) 0.5 Absolute Neuts (auto) 2.9 Absolute Lymphs (auto) 1.84 Total Counted Not Reportable PT 14.4 INR 1.1 APTT 34.4 Sodium Potassium Chloride Carbon Dioxide Anion Gap BUN Creatinine Estim Creat Clear Calc Est GFR (MDRD) Af Amer Est GFR (MDRD) Non-Af BUN/Creatinine Ratio Glucose Calcium Vancomycin Trough 29.4 H 08/15/18 05:25 WBC RBC Hgb Hct MCV MCH MCHC RDW RDW Differential Plt Count MPV Immature Gran % (Auto) Neut % (Auto) Lymph % (Auto) [place] % (Auto) Eos % (Auto) Baso % (Auto) Absolute Neuts (auto) Absolute Lymphs (auto) Total Counted PT INR APTT Sodium 139 Potassium 3.9 Chloride 105 Carbon Dioxide 25.0 Anion Gap 9 BUN 16 Creatinine 1.05 Estim Creat Clear Calc 72.04 Est GFR (MDRD) Af Amer 91 Est GFR (MDRD) Non-Af 75 BUN/Creatinine Ratio 15.2 Glucose 102 Calcium 8.8 Vancomycin Trough Medical Necessity - Tobacco Use Smoking Status: Former smoker Route of nutrition/ use of supplements: [] Nutritional Intake: [] IV Site: [] [place] Catheter: [] - Assessment/Plan Antibiotics: [] Assessment/Plan: [] R brown surgical site infection - neg MRSA pcr of wound neg 08/13. Wound cx with strep and PsA. Now s/p I&D this AM of necrotic tendon by Dr. Titus. Narrow abx to iv levaquin for PsA and strep coverage. Will follow
[2018-08-15] MEDS: Morphine 4 MG/ML Syringe IV ×2 (16:50→20:05)
--- NOTE | 2018-08-15 19:49 | PN_ITS ---
Patient Problems: Active and Suspected Problems (Last Reviewed 08/01/18 @ 11:55 by Nick Hastings MD) Infection (Acute) Subjective: She was seen and examined today, he underwent debridement of his right leg ulcer today, cultures grew out Pseudomonas and strep both were susceptible to Levaquin and he was changed to IV Levaquin today. I will start the patient's Xarelto again tomorrow, it does not appear he will need a loading dose of Xarelto. - Physical Exam General: Alert, Oriented x3, Cooperative, No apparent distress, Well developed, Well nourished HEENT: Atraumatic, PERRLA, EOMI, Normocephalic Oral: Moist Mucosa Neck: Supple, Trachea Midline, Thyroid Normal Size and Texture Lungs: Clear to auscultation, Normal air movement, No rhonchi, No wheeze, No rales Cardiovascular: Regular rate, Regular Rhythm, Normal S1, Normal S2, No murmurs, No Ectopic Activity, PMI Normal, No rub noted, No Gallop Abdomen: Bowel Sounds Present, Soft, Non Tender, Non-Distended, No hernias noted Extremities: No clubbing, No cyanosis, Capillary Refill Less than 3 Seconds Neurological: Cranial nerves II-XII grossly intact, Neuro grossly intact, Sensory exam intact to light touch and pain, Coordination normal Psych/Mental Status: Normal Affect, Appropriate, Alert and oriented to time, place, person, mood and affect Vital Signs Temp Pulse Resp BP Pulse Ox 98.0 F 70 16 112/55 L 97 08/15/18 13:58 08/15/18 13:58 08/15/18 13:58 08/15/18 13:58 08/15/18 13:58 Oxygen Delivery Method Room Air Weight: 73.6 kg Body Mass Index (BMI) 22.0 Intake and Output for Last 24 Hours 08/13/18 08/14/18 08/15/18 23:59 23:59 23:59 Intake Total 400 / 400 2806 / 2806 3022 / 3022 Output Total 350 / 350 1580 / 1580 1075 / 1075 Balance 50 / 50 1226 / 1226 1947 / 1947 Microbiology Past 72 Hours 08/15/18 08:49 Gram Stain - Final Tissue - Leg, Right Laboratory Tests Past 24 Hrs 08/15/18 08/15/18 08/15/18 05:25 05:25 05:25 WBC 5.7 RBC 4.12 L Hgb 11.0 L Hct 35.0 L MCV 85.0 MCH 26.7 L MCHC 31.4 L RDW 15.7 H RDW Differential 48.1 H Plt Count 345 MPV 9.1 Immature Gran % (Auto) 0.200 Neut % (Auto) 50.6 Lymph % (Auto) 32.1 [place] % (Auto) 11.5 H Eos % (Auto) 5.1 H Baso % (Auto) 0.5 Absolute Neuts (auto) 2.9 Absolute Lymphs (auto) 1.84 Total Counted Not Reportable PT 14.4 INR 1.1 APTT 34.4 Sodium Potassium Chloride Carbon Dioxide Anion Gap BUN Creatinine Estim Creat Clear Calc Est GFR (MDRD) Af Amer Est GFR (MDRD) Non-Af BUN/Creatinine Ratio Glucose Calcium Vancomycin Trough 29.4 H 08/15/18 05:25 WBC RBC Hgb Hct MCV MCH MCHC RDW RDW Differential Plt Count MPV Immature Gran % (Auto) Neut % (Auto) Lymph % (Auto) [place] % (Auto) Eos % (Auto) Baso % (Auto) Absolute Neuts (auto) Absolute Lymphs (auto) Total Counted PT INR APTT Sodium 139 Potassium 3.9 Chloride 105 Carbon Dioxide 25.0 Anion Gap 9 BUN 16 Creatinine 1.05 Estim Creat Clear Calc 72.04 Est GFR (MDRD) Af Amer 91 Est GFR (MDRD) Non-Af 75 BUN/Creatinine Ratio 15.2 Glucose 102 Calcium 8.8 Vancomycin Trough Medical Necessity - Tobacco Use Smoking Status: Former smoker Assessment/Plan All Active Problems (Last Reviewed 08/01/18 @ 11:55 by Nick Hastings MD) Infection (Acute) History of amputation of right foot (Resolved) Right leg DVT (Resolved) Toe ulcer, right (Resolved) #1 deep wound infection of the right lower leg with strep G and Pseudomonas- continue IV Levaquin, podiatry is following, infectious diseases is following #2 peripheral vascular disease #3 Paroxysmal atrial fibrillation-patient will resume his Xarelto tomorrow #4 Hyperlipidemia Code Visit Inpatient E&M: 09498 Subs Hosp L2
[2018-08-16] MEDS: Morphine 4 MG/ML Syringe IV ×3 (00:55→20:17)
[2018-08-16] MEDS: 0.9% NaCl Peripheral Flush Adult/Peds IV ×2 (00:56→20:18)
[2018-08-16 02:12] VITALS: BP 116/68; PULSE 66; RESP 16; TEMP 36.8; O2SAT 99
--- NOTE | 2018-08-16 05:43 | PN_ITS ---
Patient Problems: Active and Suspected Problems (Last Reviewed 08/01/18 @ 11:55 by Nick Hastings MD) Infection (Acute) Subjective: This 68 year old male was seen bedside POD #1 right leg incision and drainage with widespread debridement of non healing ulcer. Upon waking this morning, his pain is rated as a 2/10. He denies fever, chills, nausea, vomiting. - Physical Exam General: Alert, Oriented x3, Cooperative Extremities: No cyanosis, Capillary Refill Less than 3 Seconds - Digits 2345 right foot, No Calf Tenderness - Negative Yen and Watts sign, Diminished Peripheral Pulses, Edema - Mild, - - Pain with surgical wound /infected ulcer location right leg Skin: Ulcer/ Wound - Status post ulcer debridement and incision and drainage has only had hematogenous drainage without purulence, odor, or necrosis. The debrided tendon appears to be viable by about 90%. There is no necrotic tissue and these tendons are significantly reduced in size. There is no purulence on expression from the distal and proximal margins., - - Compartments remain soft to palpate right lower extremity Musculoskeletal: No Tenderness to Palpation of Joints or Extremities, Muscle Wasting, - - Healed right hallux amputation. Active range of motion digits right foot. Pain with attempted ankle range of motion. Right leg nonpalpable lymph node in the popliteal fossa. No crepitus on palpation keenan-ulcer site Neurological: Sensory exam intact to light touch and pain Psych/Mental Status: Normal Affect, Appropriate Vital Signs Temp Pulse Resp BP Pulse Ox 98.2 F 66 16 116/68 99 08/16/18 02:12 08/16/18 02:12 08/16/18 02:12 08/16/18 02:12 08/16/18 02:12 Oxygen Delivery Method Room Air Weight: 73.6 kg Body Mass Index (BMI) 22.0 Intake and Output for Last 24 Hours 08/14/18 08/15/18 08/16/18 23:59 23:59 23:59 Intake Total 2806 / 2806 3022 / 3022 930 / 930 Output Total 1580 / 1580 1075 / 1075 1200 / 1200 Balance 1226 / 1226 1947 / 1947 -270 / -270 Microbiology Past 72 Hours 08/15/18 08:49 Gram Stain - Final Tissue - Leg, Right Laboratory Tests Past 24 Hrs 03/01/2608/15/18 08/15/18 05:25 05:25 05:25 WBC 5.7 RBC 4.12 L Hgb 11.0 L Hct 35.0 L MCV 85.0 MCH 26.7 L MCHC 31.4 L RDW 15.7 H RDW Differential 48.1 H Plt Count 345 MPV 9.1 Immature Gran % (Auto) 0.200 Neut % (Auto) 50.6 Lymph % (Auto) 32.1 [place] % (Auto) 11.5 H Eos % (Auto) 5.1 H Baso % (Auto) 0.5 Absolute Neuts (auto) 2.9 Absolute Lymphs (auto) 1.84 Total Counted Not Reportable PT 14.4 INR 1.1 APTT 34.4 Sodium Potassium Chloride Carbon Dioxide Anion Gap BUN Creatinine Estim Creat Clear Calc Est GFR (MDRD) Af Amer Est GFR (MDRD) Non-Af BUN/Creatinine Ratio Glucose Calcium Vancomycin Trough 29.4 H 08/15/18 05:25 WBC RBC Hgb Hct MCV MCH MCHC RDW RDW Differential Plt Count MPV Immature Gran % (Auto) Neut % (Auto) Lymph % (Auto) [place] % (Auto) Eos % (Auto) Baso % (Auto) Absolute Neuts (auto) Absolute Lymphs (auto) Total Counted PT INR APTT Sodium 139 Potassium 3.9 Chloride 105 Carbon Dioxide 25.0 Anion Gap 9 BUN 16 Creatinine 1.05 Estim Creat Clear Calc 72.04 Est GFR (MDRD) Af Amer 91 Est GFR (MDRD) Non-Af 75 BUN/Creatinine Ratio 15.2 Glucose 102 Calcium 8.8 Vancomycin Trough Medical Necessity - Tobacco Use Smoking Status: Former smoker Assessment/Plan All Active Problems (Last Reviewed 08/01/18 @ 11:55 by Nick Hastings MD) Infection (Acute) History of amputation of right foot (Resolved) Right leg DVT (Resolved) Toe ulcer, right (Resolved) Ulcer with necrotic muscle, right leg POD #1 incision and drainage and widespread debridement of subcutaneous and tendon necrotic tissue Infection right leg addressed surgically and medically Peripheral vascular disease On anticoagulation status post arterial thrombectomy Other medical comorbidities including malnutrition and atrial fibrillation I reviewed and discussed this case including recent surgical intervention finding. His vitals remained stable overnight and his pain has decreased compared to yesterday. His morning labs are pending, CBC. His preoperative wound cultures were reviewed from the right leg as a following: Gram-negative elissa, Streptococcus G, MRSA negative. The intraoperative deep wound cultures are pending and are growing gram-positive cocci so far. Infectious disease input is appreciated. His antibiotics have been adjusted. His blood cultures are negative so far. His leg was copiously irrigated with normal saline, 1 L, bedside today and iodoform packing and saline wet-to-dry gauze covered with Adaptic was applied. This was further dressed secondarily with gauze, abdominal pad, Kerlix, and Fady wrap applied in a noncompressive manner. He tolerated this. Additional secondary dressing was also applied including abdominal pads, Kerlix, and Fady wrap. This will be performed again tomorrow morning. At this time the viability of the tissue will be evaluated and the following will be considered: Wound VAC placement, advance wound care product application and partial delayed closure, versus additional irrigation and debridement surgically. Clinically he is already demonstrating improvement with lack of local infection signs today. He was advised to avoid laying directly on this open surgical site to reduce pressure. He understands this may be a staged procedure and comprehensive wound care plan is needed for the care of this complex limb salvage case. Medical management, and DVT prophylaxis per primary team is appreciated. It is okay to resume all anticoagulation medication at this time from a surgical standpoint. His hemostasis is controlled. To continue with nutritional supplementation to optimize healing. I will continue to follow him close while in house. Felisha Titus DPM, [facility] [phone]
[2018-08-16 08:02] LABS: Absolute Lymphocyte Count 1.71 X10^3/ul (0.83-4.51); Absolute Neutrophil Count 8.3 X10^3/uL (2.0-7.7); Basophil# 0.01 X10^3/uL; Basophil% 0.1 % (0-1); Eosinophil# 0.01 X10^3/uL; Eosinophils% 0.1 % (0-5); Hematocrit 31.8 % (40-54); Hemoglobin 10.1 g/dl (13.0-16.5); Lymphocyte # 1.71 X10^3/ul (4.0); Lymphocyte % 15.3 % (19-41); Mean Corp Hgb Conc 31.8 g/gl (32-36); Mean Corpuscular Hgb 26.8 pg (27.0-32.0); Mean Corpuscular Volume 84.4 fL (80-94); Mean Platelet Vol. 8.7 fl (6.2-12.0); Monocyte# 1.11 X10^3/uL; Monocyte% 9.9 % (0-10); Neutrophil # 8.31 X10^3/uL (2.7-7.7); Neutrophil % 74.4 % (47-70); Platelet Count 337 K/mm3 (150-450); RBC Distribution Width CV 16.2 % (11.6-14.6); RBC Distribution Width SD 49.8 fl (35.1-43.9); Red Blood Count 3.77 M/mm3 (4.6-6.2); White Blood Count 11.2 K/mm3 (4.4-11.0)
[2018-08-16 08:04] LABS: POSITIVE COUNT NO; POSITIVE DIFFERENTIAL NO; POSITIVE MORPHOLOGY NO
[2018-08-16] MEDS: dilTIAZem CD 120 MG Capsule PO (08:39)
[2018-08-16] MEDS: Ensure Clear 120 ML Liquid PO ×4 (08:41→21:41)
[2018-08-16] MEDS: oxyCODONE 5 MG Tablet PO ×3 (08:45→23:31)
[2018-08-16 08:47] VITALS: BP 134/68; PULSE 65; RESP 16; TEMP 36.4; O2SAT 98
[2018-08-16] MEDS: levoFLOXacin IV 750 MG/150 ML BAG 100 MG IV (10:03)
--- NOTE | 2018-08-16 10:36 | PCM.PN.HOSP ---
Patient Problems: Active and Suspected Problems (Last Reviewed 08/01/18 @ 11:55 by Nick Hastings MD) Infection (Acute) Subjective: Patient seen and examined. He had no complaints and felt well. Review of systems otherwise negative. Podiatry on board a status post debridement of right lower extremity ulcer on 08/15/2018. Xarelto to be resumed today. Labs and vitals reviewed. Vitals/I&O's: Vital Signs Temp Pulse Resp BP Pulse Ox 97.5 F L 65 16 134/68 H 98 08/16/18 08:47 08/16/18 08:47 08/16/18 08:47 08/16/18 08:47 08/16/18 08:47 Oxygen Delivery Method Room Air Weight: 162 lb 4.163 oz Body Mass Index (BMI) 22.0 Intake and Output for Last 24 Hours 08/14/18 08/15/18 08/16/18 23:59 23:59 23:59 Intake Total 2806 / 2806 3022 / 3022 1130 / 1130 Output Total 1580 / 1580 1075 / 1075 1650 / 1650 Balance 1226 / 1226 1947 / 1947 -520 / -520 General: Alert, Oriented x3, Cooperative, No apparent distress HEENT: Atraumatic, PERRLA, EOMI, Normocephalic Oral: Moist Mucosa Neck: Supple, No JVD, Negative Carotid Bruits Lungs: Clear to auscultation, Normal air movement, No rhonchi, No wheeze, No rales Cardiovascular: Regular rate, Regular Rhythm, Normal S1, Normal S2, No murmurs Abdomen: Bowel Sounds Present, Soft, Non Tender, Non-Distended, No Hepato-splenomegaly Extremities: No edema, Capillary Refill Less than 3 Seconds Skin: - - as under MSK Musculoskeletal: - - RLE wrapped in bandage. Lymphatic: No Cervical, Supraclavicular, or Inguinal Adenopathy Neurological: Cranial nerves II-XII grossly intact Psych/Mental Status: Normal Affect, Appropriate, Alert and oriented to time, place, person, mood and affect Microbiology Past 72 Hours 08/15/18 08:49 Tissue - Leg, Right Gram Stain - Final 08/15/18 08:49 Tissue - Leg, Right Wound Culture - Preliminary GNR Poss Pseudomonas sp Gram positive organism 08/13/18 15:15 Blood Culture (Wb) - Anticubital Right Blood Culture - Preliminary No growth in 48 hours. Laboratory Results 08/16/18 07:40: WBC 11.2 H, RBC 3.77 L, Hgb 10.1 L, Hct 31.8 L, MCV 84.4, MCH 26.8 L, MCHC 31.8 L, RDW 16.2 H, RDW Differential 49.8 H, Plt Count 337, MPV 8.7, Immature Gran % (Auto) 0.200, Neut % (Auto) 74.4 H, Lymph % (Auto) 15.3 L, [place] % (Auto) 9.9, Eos % (Auto) 0.1, Baso % (Auto) 0.1, Absolute Neuts (auto) 8.3 H, Absolute Lymphs (auto) 1.71, Total Counted Not Reportable Diagnostic Data Tibia/Fibula X-Ray 08/13/18 21:00 IMPRESSION: Dorsal soft tissue lesion with air in the soft tissues. Necrotizing fasciitis cannot be excluded. No evidence of osteomyelitis. If there is further concern for osteomyelitis, consider correlation with three-phase bone scan or contrast-enhanced MRI. Electronically Signed: Brice Stanley MD at 7:59 EST Tel , Service support , ADDENDUM: 08/14/18 0828 IMPRESSION: Dorsal soft tissue lesion with air in the soft tissues. Necrotizing fasciitis cannot be excluded. No evidence of osteomyelitis. If there is further concern for osteomyelitis, consider correlation with three-phase bone scan or contrast-enhanced MRI. N.B. : The above information has been verbally conveyed by Brice Stanley MD to [phone], AA, on 08/14/2018 08:21:48 (ET). Electronically Signed: Brice Stanley MD at 7:59 EST Tel , Service support , Current Medications Calcium Carbonate (Tums) 1,000 mg PO Q4H PRN PRN PRN Reason: DYSPEPSIA/INDIGESTION Diltiazem HCl (Cardizem Cd) 120 mg PO DAILY ON LICENSE OF [facility] Last Admin: 08/16/18 08:39 Dose: 120 mg Levofloxacin (Levaquin Iv) 750 mg in 150 mls @ 100 mls/hr IV Q24 ON LICENSE OF [facility] Last Admin: 08/16/18 10:03 Dose: 100 mls/hr Morphine Sulfate () 4 mg IV Q3H PRN PRN PRN Reason: SEVERE PAIN (6-10/10) Last Admin: 08/16/18 05:35 Dose: 4 mg Nutritional Formula ([place] - [place] Flavor) 1 packet PO BIDCM ON LICENSE OF [facility] Last Admin: 08/16/18 08:39 Dose: 1 packet Nutritional Formula (Lactose Free) (Ensure Clear) 120 ml PO 4X/DAY ON LICENSE OF [facility] Last Admin: 08/16/18 08:41 Dose: 120 ml Oxycodone HCl (Oxyir) 5 - 10 mg PO Q4H PRN PRN PRN Reason: SEVERE PAIN (6-10/10) Last Admin: 08/16/18 08:45 Dose: 10 mg Pantoprazole Sodium (Protonix) 40 mg PO DAILY ON LICENSE OF [facility] Rivaroxaban (Xarelto) 20 mg PO DAILY@1700 ON LICENSE OF [facility] Sodium Chloride () 5 - 15 ml IV UD PRN PRN Reason: SALINE FLUSH Last Admin: 08/16/18 00:56 Dose: 10 ml Medical Necessity - Tobacco Use Smoking Status: Former smoker Assessment/Plan All Active Problems (Last Reviewed 08/01/18 @ 11:55 by Nick Hastings MD) Infection (Acute) History of amputation of right foot (Resolved) Right leg DVT (Resolved) Toe ulcer, right (Resolved) 1. Right leg ulcer s/p incision and drainage with excisional debridement of nonviable muscle and subcutaneous tissue has no complaints this morning; vitals stable. white cell count trended up slightly to 11.2 today; may be reactive from stress of surgery On IV levofloxacin. On morphine and oxycodone for pain. Podiatry and ID on board. wound cultured Pseudomonas and a gram positive organism. Blood cultures were negative and fungal and acid fast bacilli culture pending. 2. Peripheral vascular disease: Stable. plavix currently on hold o/a of surgery. To resume 3. Paroxysmal A. fib: Currently rate and rhythm controlled. on cardizem. Xarelto resumed today. 4. Hyperlipidemia: On statin. DVT prophylaxis: On Xarelto. Code Visit Inpatient E&M: 39170 Subs Hosp L3
--- NOTE | 2018-08-16 10:44 | PN_ITS ---
Patient Problems: Active and Suspected Problems (Last Reviewed 08/01/18 @ 11:55 by Nick Hastings MD) Infection (Acute) Subjective: Patient seen and examined. He had no complaints and felt well. Review of systems otherwise negative. Podiatry on board a status post debridement of right lower extremity ulcer on 08/15/2018. Xarelto to be resumed today. Labs and vitals reviewed. Vitals/I&O's: Vital Signs Temp Pulse Resp BP Pulse Ox 97.5 F L 65 16 134/68 H 98 08/16/18 08:47 08/16/18 08:47 08/16/18 08:47 08/16/18 08:47 08/16/18 08:47 Oxygen Delivery Method Room Air Weight: 162 lb 4.163 oz Body Mass Index (BMI) 22.0 Intake and Output for Last 24 Hours 08/14/18 08/15/18 08/16/18 23:59 23:59 23:59 Intake Total 2806 / 2806 3022 / 3022 1130 / 1130 Output Total 1580 / 1580 1075 / 1075 1650 / 1650 Balance 1226 / 1226 1947 / 1947 -520 / -520 General: Alert, Oriented x3, Cooperative, No apparent distress HEENT: Atraumatic, PERRLA, EOMI, Normocephalic Oral: Moist Mucosa Neck: Supple, No JVD, Negative Carotid Bruits Lungs: Clear to auscultation, Normal air movement, No rhonchi, No wheeze, No rales Cardiovascular: Regular rate, Regular Rhythm, Normal S1, Normal S2, No murmurs Abdomen: Bowel Sounds Present, Soft, Non Tender, Non-Distended, No Hepato- splenomegaly Extremities: No edema, Capillary Refill Less than 3 Seconds Skin: - - as under MSK Musculoskeletal: - - RLE wrapped in bandage. Lymphatic: No Cervical, Supraclavicular, or Inguinal Adenopathy Neurological: Cranial nerves II-XII grossly intact Psych/Mental Status: Normal Affect, Appropriate, Alert and oriented to time, place, person, mood and affect Microbiology Past 72 Hours 08/15/18 08:49 Tissue - Leg, Right Gram Stain - Final 08/15/18 08:49 Tissue - Leg, Right Wound Culture - Preliminary GNR Poss Pseudomonas sp Gram positive organism 08/13/18 15:15 Blood Culture (Wb) - Anticubital Right Blood Culture - Preliminary No growth in 48 hours. Laboratory Results 08/16/18 07:40: WBC 11.2 H, RBC 3.77 L, Hgb 10.1 L, Hct 31.8 L, MCV 84.4, MCH 26.8 L, MCHC 31.8 L, RDW 16.2 H, RDW Differential 49.8 H, Plt Count 337, MPV 8.7, Immature Gran % (Auto) 0.200, Neut % (Auto) 74.4 H, Lymph % (Auto) 15.3 L, [place] % (Auto) 9.9, Eos % (Auto) 0.1, Baso % (Auto) 0.1, Absolute Neuts (auto) 8.3 H, Absolute Lymphs (auto) 1.71, Total Counted Not Reportable Diagnostic Data Tibia/Fibula X-Ray 08/13/18 21:00 IMPRESSION: Dorsal soft tissue lesion with air in the soft tissues. Necrotizing fasciitis cannot be excluded. No evidence of osteomyelitis. If there is further concern for osteomyelitis, consider correlation with three-phase bone scan or contrast-enhanced MRI. Electronically Signed: Brice Stanley MD at 7:59 EST Tel , Service support , ADDENDUM: 08/14/18 0828 IMPRESSION: Dorsal soft tissue lesion with air in the soft tissues. Necrotizing fasciitis cannot be excluded. No evidence of osteomyelitis. If there is further concern for osteomyelitis, consider correlation with three-phase bone scan or contrast-enhanced MRI. N.B. : The above information has been verbally conveyed by Brice Stanley MD to [phone], AA, on 08/14/2018 08:21:48 (ET). Electronically Signed: Brice Stanley MD at 7:59 EST Tel , Service support , Current Medications Calcium Carbonate (Tums) 1,000 mg PO Q4H PRN PRN PRN Reason: DYSPEPSIA/INDIGESTION Diltiazem HCl (Cardizem Cd) 120 mg PO DAILY [facility] Last Admin: 08/16/18 08:39 Dose: 120 mg Levofloxacin (Levaquin Iv) 750 mg in 150 mls @ 100 mls/hr IV Q24 [facility] Last Admin: 08/16/18 10:03 Dose: 100 mls/hr Morphine Sulfate () 4 mg IV Q3H PRN PRN PRN Reason: SEVERE PAIN (6-10/10) Last Admin: 08/16/18 05:35 Dose: 4 mg Nutritional Formula ([place] - [place] Flavor) 1 packet PO BIDCM [facility] Last Admin: 08/16/18 08:39 Dose: 1 packet Nutritional Formula (Lactose Free) (Ensure Clear) 120 ml PO 4X/DAY [facility] Last Admin: 08/16/18 08:41 Dose: 120 ml Oxycodone HCl (Oxyir) 5 - 10 mg PO Q4H PRN PRN PRN Reason: SEVERE PAIN (6-10/10) Last Admin: 08/16/18 08:45 Dose: 10 mg Pantoprazole Sodium (Protonix) 40 mg PO DAILY [facility] Rivaroxaban (Xarelto) 20 mg PO DAILY@1700 [facility] Sodium Chloride () 5 - 15 ml IV UD PRN PRN Reason: SALINE FLUSH Last Admin: 08/16/18 00:56 Dose: 10 ml Medical Necessity - Tobacco Use Smoking Status: Former smoker Assessment/Plan All Active Problems (Last Reviewed 08/01/18 @ 11:55 by Nick Hastings MD) Infection (Acute) History of amputation of right foot (Resolved) Right leg DVT (Resolved) Toe ulcer, right (Resolved) 1. Right leg ulcer * s/p incision and drainage with excisional debridement of nonviable muscle and subcutaneous tissue * has no complaints this morning; vitals stable. * white cell count trended up slightly to 11.2 today; may be reactive from stress of surgery * On IV levofloxacin. * On morphine and oxycodone for pain. * Podiatry and ID on board. * wound cultured Pseudomonas and a gram positive organism. Blood cultures were negative and fungal and acid fast bacilli culture pending. * 2. Peripheral vascular disease: Stable. plavix currently on hold o/a of surgery. To resume * 3. Paroxysmal A. fib: Currently rate and rhythm controlled. on cardizem. Xarelto resumed today. 4. Hyperlipidemia: On statin. DVT prophylaxis: On Xarelto. Code Visit Inpatient E&M: 23295 Subs Hosp L3
[2018-08-16] MEDS: Pantoprazole Sodium 40 MG Tablet PO (10:45)
[2018-08-16 11:19] VITALS: BP 115/66; PULSE 60; RESP 16; TEMP 36.3; O2SAT 98
[2018-08-16 13:59] VITALS: BP 133/73; PULSE 68; RESP 16; TEMP 36.4; O2SAT 99
[2018-08-16] MEDS: Rivaroxaban 20 MG Tablet PO (16:49)
[2018-08-16 20:16] VITALS: BP 120/62; PULSE 64; RESP 16; TEMP 36.8; O2SAT 97
[2018-08-17 03:07] VITALS: BP 130/53; PULSE 61; RESP 16; TEMP 36.7; O2SAT 97
[2018-08-17] MEDS: oxyCODONE 5 MG Tablet PO ×5 (05:02→22:20)
[2018-08-17 06:55] LABS: Absolute Lymphocyte Count 2.81 X10^3/ul (0.83-4.51); Absolute Neutrophil Count 4.6 X10^3/uL (2.0-7.7); Basophil# 0.03 X10^3/uL; Basophil% 0.4 % (0-1); Eosinophil# 0.15 X10^3/uL; Eosinophils% 1.8 % (0-5); Hematocrit 32.8 % (40-54); Hemoglobin 10.4 g/dl (13.0-16.5); Lymphocyte # 2.81 X10^3/ul (4.0); Lymphocyte % 33.8 % (19-41); Mean Corp Hgb Conc 31.7 g/gl (32-36); Mean Corpuscular Hgb 27.2 pg (27.0-32.0); Mean Corpuscular Volume 85.9 fL (80-94); Mean Platelet Vol. 8.9 fl (6.2-12.0); Monocyte# 0.71 X10^3/uL; Monocyte% 8.5 % (0-10); Neutrophil # 4.59 X10^3/uL (2.7-7.7); Neutrophil % 55.3 % (47-70); Platelet Count 347 K/mm3 (150-450); RBC Distribution Width CV 16.5 % (11.6-14.6); RBC Distribution Width SD 50.6 fl (35.1-43.9); Red Blood Count 3.82 M/mm3 (4.6-6.2); White Blood Count 8.3 K/mm3 (4.4-11.0)
[2018-08-17 06:59] LABS: POSITIVE COUNT NO; POSITIVE DIFFERENTIAL NO; POSITIVE MORPHOLOGY NO
[2018-08-17 07:07] LABS: BUN 19 mg/dL (7-18); Creatinine, Serum 0.89 mg/dL (0.70-1.30); EST Glomerular Filtration Rate 91 mL/min (>60); Estimated Creatinine Clearance 84.99 ml/min; Glucose 97 mg/dL (74-106)
[2018-08-17 07:08] LABS: Anion Gap 6 (5-15); BUN/Creat Ratio 21.4 RATIO (10-20); Chloride 107 mmol/L (98-107); Est Glom Filt Rate - Afr Amer 110 mL/min (>60); Potassium 4.4 mmol/L (3.5-5.1); Sodium Level 140 mmol/L (136-145)
--- NOTE | 2018-08-17 08:05 | PCM.PROGNOTE ---
Patient Problems: Active and Suspected Problems (Last Reviewed 08/01/18 @ 11:55 by Nick Hastings MD) Infection (Acute) Subjective: This 68 year old male with peripheral vascular disease and atrial fibrillation on chronic anticoagulation medication was seen bedside status post incision and drainage of widespread debridement of right infected leg. His pain is 2 out of 10 this morning. He denies fever, chill, nausea, vomiting, shortness of breath, chest pain. - Physical Exam General: Alert, Oriented x3, Cooperative HEENT: Atraumatic Extremities: No cyanosis, Capillary Refill Less than 3 Seconds, No Calf Tenderness - Negative Yen and Watts sign bilateral, Diminished Peripheral Pulses, Edema - Decreased Skin: Ulcer/ Wound - Resolved erythema streaking odor right leg. There is continued exposure of the tibialis anterior and extensor digitorum longus tendons that continue to devitalized; survival of these tendons are not likely. There is no purulence on expression from the distal proximal wound and the wound bed is granular with scant fibrous and devitalized tissue. There is no eschar or necrosis Musculoskeletal: No Tenderness to Palpation of Joints or Extremities, Muscle Wasting, - - Compartments remain soft to palpate to the right lower extremity. Active range of motion ankle and digits noted right lower extremity Neurological: Sensory exam intact to light touch and pain Psych/Mental Status: Normal Affect, Appropriate Vital Signs Temp Pulse Resp BP Pulse Ox 98.1 F 61 16 130/53 H 97 08/17/18 03:07 08/17/18 03:07 08/17/18 03:07 08/17/18 03:07 08/17/18 03:07 Oxygen Delivery Method Room Air Weight: 73.6 kg Body Mass Index (BMI) 22.0 Intake and Output for Last 24 Hours 08/15/18 08/16/18 08/18/18 23:59 23:59 00:59 Intake Total 3022 / 3022 2880 / 2880 450 / 450 Output Total 1075 / 1075 4825 / 4825 475 / 475 Balance 194 / 194 -1944 / -1944 - / Microbiology Past 72 Hours 08/15/18 08:49 Gram Stain - Final Tissue - Leg, Right Wound Culture - Preliminary Pseudomonas aeroginosa Gram positive organism 08/13/18 15:15 Blood Culture - Preliminary Blood Culture (Wb) - Anticubital Right No growth in 48 hours. Laboratory Tests Past 24 Hrs 08/16/18 08/17/18 08/17/18 07:40 06:30 06:30 WBC 11.2 H 8.3 RBC 3.77 L 3.82 L Hgb 10.1 L 10.4 L Hct 31.8 L 32.8 L MCV 84.4 85.9 MCH 26.8 L 27.2 MCHC 31.8 L 31.7 L RDW 16.2 H 16.5 H RDW Differential 49.8 H 50.6 H Plt Count 337 347 MPV 8.7 8.9 Immature Gran % (Auto) 0.200 0.200 Neut % (Auto) 74.4 H 55.3 Lymph % (Auto) 15.3 L 33.8 [place] % (Auto) 9.9 8.5 Eos % (Auto) 0.1 1.8 Baso % (Auto) 0.1 0.4 Absolute Neuts (auto) 8.3 H 4.6 Absolute Lymphs (auto) 1.71 2.81 Total Counted Not Reportable Not Reportable Sodium 140 Potassium 4.4 Chloride 107 Carbon Dioxide 27.0 Anion Gap 6 BUN 19 H Creatinine 0.89 Estim Creat Clear Calc 84.99 Est GFR (MDRD) Af Amer 110 Est GFR (MDRD) Non-Af 91 BUN/Creatinine Ratio 21.4 H Glucose 97 Calcium 9.0 Medical Necessity - Tobacco Use Smoking Status: Former smoker Assessment/Plan All Active Problems (Last Reviewed 08/01/18 @ 11:55 by Nick Hastings MD) Infection (Acute) History of amputation of right foot (Resolved) Right leg DVT (Resolved) Toe ulcer, right (Resolved) Ulcer with necrotic muscle, right leg POD #2 incision and drainage and widespread debridement of subcutaneous and tendon necrotic tissue Infection right leg addressed surgically and medically Peripheral vascular disease On anticoagulation status post arterial thrombectomy Other medical comorbidities including malnutrition and atrial fibrillation I reviewed and discussed this case including recent surgical intervention finding. His vitals remained stable overnight and his pain has continued to decrease compared to yesterday. His leukocytosis from yesterday have resolved. His hemoglobin level remained stable. The intraoperative deep wound cultures are pending and are growing gram-positive cocci so far. Infectious disease input is appreciated. His blood cultures are negative so far. He continues on IV levofloxacin well per culture results. His leg was copiously irrigated with normal saline, 1 L, bedside today and iodoform packing and saline wet-to-dry gauze covered with Adaptic was applied. This was further dressed secondarily with saline and Betadine soaked gauze, abdominal pad, Kerlix, and Fady wrap applied in a noncompressive manner. I recommend operating room for serial debridement and irrigation this upcoming Saturday with partial delayed closure and application of advanced wound care product and wound VAC. This will be coordinated. The preoperative indications, planned procedure, possible benefits, risks, consultations, and anticipated healing time management were discussed in detail the patient. No guarantees were made. He is amenable to proceed with the aforementioned surgery. Informed surgical consent will be signed. He understands this may be a continued staged procedure and comprehensive wound healing plan is necessary for limb salvage. This is not an elective surgery. Medical management, preoperative optimization and DVT prophylaxis per primary team is appreciated. His Xarelto was resumed yesterday. To continue with nutritional supplementation to optimize healing. I will continue to follow him close while in house. Felisha Titus DPM, [facility] [phone]
[2018-08-17 08:06] VITALS: BP 120/68; PULSE 61; RESP 16; TEMP 36.6; O2SAT 98
[2018-08-17] MEDS: Morphine 4 MG/ML Syringe IV (08:08)
[2018-08-17] MEDS: 0.9% NaCl Peripheral Flush Adult/Peds IV ×3 (08:10→13:38)
--- NOTE | 2018-08-17 09:39 | PCM.PN.HOSP ---
Patient Problems: Active and Suspected Problems (Last Reviewed 08/01/18 @ 11:55 by Nick Hastings MD) Infection (Acute) Subjective: Patient seen and examined. He had an uneventful night. Pain is well controlled. He denies any fever chills, palpitations or dizziness, chest pain, abdominal pain, diarrhea vomiting. Review of systems otherwise negative. Labs and vitals reviewed. He was reviewed by podiatry this morning. Per podiatry, to have serial debridement and irrigation this upcoming Saturday with partial delayed closure and application of advanced wound care product and wound VAC. Vitals/I&O's: Vital Signs Temp Pulse Resp BP Pulse Ox 97.9 F 61 16 120/68 98 08/17/18 08:06 08/17/18 08:06 08/17/18 08:06 08/17/18 08:06 08/17/18 08:06 Oxygen Delivery Method Room Air Weight: 162 lb 4.163 oz Body Mass Index (BMI) 22.0 Intake and Output for Last 24 Hours 08/15/18 08/16/18 08/18/18 23:59 23:59 00:59 Intake Total 3022 / 3022 2880 / 2880 450 / 450 Output Total 1075 / 1075 4825 / 4825 475 / 475 Balance 1947 / 194 -1944 / -194 - / General: Alert, Oriented x3, Cooperative, No apparent distress HEENT: Atraumatic, PERRLA, EOMI, Normocephalic Oral: Moist Mucosa Neck: Supple, No JVD, Negative Carotid Bruits Lungs: Clear to auscultation, Normal air movement, No rhonchi, No wheeze, No rales Cardiovascular: Regular rate, Regular Rhythm, Normal S1, Normal S2, No murmurs Abdomen: Bowel Sounds Present, Soft, Non Tender, Non-Distended, No Hepato-splenomegaly Extremities: No edema, Capillary Refill Less than 3 Seconds Skin: - - as under MSK Musculoskeletal: - - RLE wrapped in bandage. Lymphatic: No Cervical, Supraclavicular, or Inguinal Adenopathy Neurological: Cranial nerves II-XII grossly intact Psych/Mental Status: Normal Affect, Appropriate, Alert and oriented to time, place, person, mood and affect Microbiology Past 72 Hours 08/15/18 08:49 Tissue - Leg, Right Gram Stain - Final 08/15/18 08:49 Tissue - Leg, Right Wound Culture - Preliminary Pseudomonas aeroginosa Gram positive organism 08/13/18 15:15 Blood Culture (Wb) - Anticubital Right Blood Culture - Preliminary No growth in 48 hours. Laboratory Results 08/17/18 06:30: WBC 8.3, RBC 3.82 L, Hgb 10.4 L, Hct 32.8 L, MCV 85.9, MCH 27.2, MCHC 31.7 L, RDW 16.5 H, RDW Differential 50.6 H, Plt Count 347, MPV 8.9, Immature Gran % (Auto) 0.200, Neut % (Auto) 55.3, Lymph % (Auto) 33.8, [place] % (Auto) 8.5, Eos % (Auto) 1.8, Baso % (Auto) 0.4, Absolute Neuts (auto) 4.6, Absolute Lymphs (auto) 2.81, Total Counted Not Reportable 08/17/18 06:30: Sodium 140, Potassium 4.4, Chloride 107, Carbon Dioxide 27.0, Anion Gap 6, BUN 19 H, Creatinine 0.89, Estim Creat Clear Calc 84.99, Est GFR (MDRD) Af Amer 110, Est GFR (MDRD) Non-Af 91, BUN/Creatinine Ratio 21.4 H, Glucose 97, Calcium 9.0 Current Medications Bisacodyl (Dulcolax) 5 mg PO DAILY PRN PRN Reason: Constipation Calcium Carbonate (Tums) 1,000 mg PO Q4H PRN PRN PRN Reason: DYSPEPSIA/INDIGESTION Diltiazem HCl (Cardizem Cd) 120 mg PO DAILY [facility] Last Admin: 08/16/18 08:39 Dose: 120 mg Levofloxacin (Levaquin Iv) 750 mg in 150 mls @ 100 mls/hr IV Q24 [facility] Last Admin: 08/16/18 10:03 Dose: 100 mls/hr Morphine Sulfate () 4 mg IV Q3H PRN PRN PRN Reason: SEVERE PAIN (6-10/10) Last Admin: 08/17/18 08:08 Dose: 4 mg Nutritional Formula ([place] - [place] Flavor) 1 packet PO BIDCM [facility] Last Admin: 08/16/18 16:49 Dose: 1 packet Nutritional Formula (Lactose Free) (Ensure Clear) 120 ml PO 4X/DAY [facility] Last Admin: 08/16/18 21:41 Dose: 120 ml Oxycodone HCl (Oxyir) 5 - 10 mg PO Q4H PRN PRN PRN Reason: SEVERE PAIN (6-1010) Last Admin: 08/17/18 05:02 Dose: 10 mg Pantoprazole Sodium (Protonix) 40 mg PO DAILY [facility] Last Admin: 08/16/18 10:45 Dose: 40 mg Rivaroxaban (Xarelto) 20 mg PO DAILY@1700 [facility] Last Admin: 08/16/18 16:49 Dose: 20 mg Sodium Chloride () 5 - 15 ml IV UD PRN PRN Reason: SALINE FLUSH Last Admin: 08/17/18 08:10 Dose: 10 ml Medical Necessity - Tobacco Use Smoking Status: Former smoker Assessment/Plan All Active Problems (Last Reviewed 08/01/18 @ 11:55 by Nick Hastings MD) Infection (Acute) History of amputation of right foot (Resolved) Right leg DVT (Resolved) Toe ulcer, right (Resolved) 1. Right leg ulcer s/p incision and drainage with excisional debridement of nonviable muscle and subcutaneous tissue has no complaints this morning; vitals stable. wbc trended down to 8.3 this morning. On IV levofloxacin. On morphine and oxycodone for pain. Podiatry and ID on board. per podiatry, to have serial debridement and irrigation this appointment Saturday with partial delayed closure and application of advanced wound care product and wound VAC. wound cultured Pseudomonas and a gram positive organism. Blood cultures were negative and fungal and acid fast bacilli culture pending. 2. Peripheral vascular disease: Stable. plavix currently on hold o/a of surgery. To resume after surgery on Saturday 3. Paroxysmal A. fib: Currently rate and rhythm controlled. on cardizem and xarelto. Discussed with podiatry- Dr Tacho reddy with patient remaining on xarelto during surgery as she doesnt anticipate there will be much bleeding. 4. Hyperlipidemia: On statin. DVT prophylaxis: On Xarelto. Code Visit Inpatient E&M: 50529 [facility] Hosp L3
--- NOTE | 2018-08-17 09:42 | PN_ITS ---
Patient Problems: Active and Suspected Problems (Last Reviewed 08/01/18 @ 11:55 by Nick Hastings MD) Infection (Acute) Subjective: Patient seen and examined. He had an uneventful night. Pain is well controlled. He denies any fever chills, palpitations or dizziness, chest pain, abdominal pain, diarrhea vomiting. Review of systems otherwise negative. Labs and vitals reviewed. He was reviewed by podiatry this morning. Per podiatry, to have serial debridement and irrigation this upcoming Saturday with partial delayed closure and application of advanced wound care product and wound VAC. Vitals/I&O's: Vital Signs Temp Pulse Resp BP Pulse Ox 97.9 F 61 16 120/68 98 08/17/18 08:06 08/17/18 08:06 08/17/18 08:06 08/17/18 08:06 08/17/18 08:06 Oxygen Delivery Method Room Air Weight: 162 lb 4.163 oz Body Mass Index (BMI) 22.0 Intake and Output for Last 24 Hours 08/15/18 08/16/18 08/18/18 23:59 23:59 00:59 Intake Total 3022 / 3022 2880 / 2880 450 / 450 Output Total 1075 / 1075 4825 / 4825 475 / 475 Balance 1947 / 194 -1944 / -194 - / General: Alert, Oriented x3, Cooperative, No apparent distress HEENT: Atraumatic, PERRLA, EOMI, Normocephalic Oral: Moist Mucosa Neck: Supple, No JVD, Negative Carotid Bruits Lungs: Clear to auscultation, Normal air movement, No rhonchi, No wheeze, No rales Cardiovascular: Regular rate, Regular Rhythm, Normal S1, Normal S2, No murmurs Abdomen: Bowel Sounds Present, Soft, Non Tender, Non-Distended, No Hepato- splenomegaly Extremities: No edema, Capillary Refill Less than 3 Seconds Skin: - - as under MSK Musculoskeletal: - - RLE wrapped in bandage. Lymphatic: No Cervical, Supraclavicular, or Inguinal Adenopathy Neurological: Cranial nerves II-XII grossly intact Psych/Mental Status: Normal Affect, Appropriate, Alert and oriented to time, place, person, mood and affect Microbiology Past 72 Hours 08/15/18 08:49 Tissue - Leg, Right Gram Stain - Final 08/15/18 08:49 Tissue - Leg, Right Wound Culture - Preliminary Pseudomonas aeroginosa Gram positive organism 08/13/18 15:15 Blood Culture (Wb) - Anticubital Right Blood Culture - Preliminary No growth in 48 hours. Laboratory Results 08/17/18 06:30: WBC 8.3, RBC 3.82 L, Hgb 10.4 L, Hct 32.8 L, MCV 85.9, MCH 27.2, MCHC 31.7 L, RDW 16.5 H, RDW Differential 50.6 H, Plt Count 347, MPV 8.9, Immature Gran % (Auto) 0.200, Neut % (Auto) 55.3, Lymph % (Auto) 33.8, [place] % (Auto) 8.5, Eos % (Auto) 1.8, Baso % (Auto) 0.4, Absolute Neuts (auto) 4.6, Absolute Lymphs (auto) 2.81, Total Counted Not Reportable 08/17/18 06:30: Sodium 140, Potassium 4.4, Chloride 107, Carbon Dioxide 27.0, Anion Gap 6, BUN 19 H, Creatinine 0.89, Estim Creat Clear Calc 84.99, Est GFR (MDRD) Af Amer 110, Est GFR (MDRD) Non-Af 91, BUN/Creatinine Ratio 21.4 H, Glucose 97, Calcium 9.0 Current Medications Bisacodyl (Dulcolax) 5 mg PO DAILY PRN PRN Reason: Constipation Calcium Carbonate (Tums) 1,000 mg PO Q4H PRN PRN PRN Reason: DYSPEPSIA/INDIGESTION Diltiazem HCl (Cardizem Cd) 120 mg PO DAILY [facility] Last Admin: 08/16/18 08:39 Dose: 120 mg Levofloxacin (Levaquin Iv) 750 mg in 150 mls @ 100 mls/hr IV Q24 [facility] Last Admin: 08/16/18 10:03 Dose: 100 mls/hr Morphine Sulfate () 4 mg IV Q3H PRN PRN PRN Reason: SEVERE PAIN (6-10/10) Last Admin: 08/17/18 08:08 Dose: 4 mg Nutritional Formula ([place] - [place] Flavor) 1 packet PO BIDCM [facility] Last Admin: 08/16/18 16:49 Dose: 1 packet Nutritional Formula (Lactose Free) (Ensure Clear) 120 ml PO 4X/DAY [facility] Last Admin: 08/16/18 21:41 Dose: 120 ml Oxycodone HCl (Oxyir) 5 - 10 mg PO Q4H PRN PRN PRN Reason: SEVERE PAIN (6-10/10) Last Admin: 08/17/18 05:02 Dose: 10 mg Pantoprazole Sodium (Protonix) 40 mg PO DAILY [facility] Last Admin: 08/16/18 10:45 Dose: 40 mg Rivaroxaban (Xarelto) 20 mg PO DAILY@1700 [facility] Last Admin: 08/16/18 16:49 Dose: 20 mg Sodium Chloride () 5 - 15 ml IV UD PRN PRN Reason: SALINE FLUSH Last Admin: 08/17/18 08:10 Dose: 10 ml Medical Necessity - Tobacco Use Smoking Status: Former smoker Assessment/Plan All Active Problems (Last Reviewed 08/01/18 @ 11:55 by Nick Hastings MD) Infection (Acute) History of amputation of right foot (Resolved) Right leg DVT (Resolved) Toe ulcer, right (Resolved) 1. Right leg ulcer * s/p incision and drainage with excisional debridement of nonviable muscle and subcutaneous tissue * has no complaints this morning; vitals stable. * wbc trended down to 8.3 this morning. * On IV levofloxacin. * On morphine and oxycodone for pain. * Podiatry and ID on board. * per podiatry, to have serial debridement and irrigation this appointment Saturday with partial delayed closure and application of advanced wound care product and wound VAC. * wound cultured Pseudomonas and a gram positive organism. Blood cultures were negative and fungal and acid fast bacilli culture pending. * 2. Peripheral vascular disease: Stable. plavix currently on hold o/a of surgery. To resume after surgery on Saturday * 3. Paroxysmal A. fib: * Currently rate and rhythm controlled. * on cardizem and xarelto. Discussed with podiatry- Dr Tacho reddy with patient remaining on xarelto during surgery as she doesnt anticipate there will be much bleeding. 4. Hyperlipidemia: On statin. DVT prophylaxis: On Xarelto. Code Visit Inpatient E&M: [id number] [facility] L3
[2018-08-17] MEDS: levoFLOXacin IV 750 MG/150 ML BAG 100 MG IV (09:55)
[2018-08-17] MEDS: Bisacodyl 5 MG Tablet PO (09:55)
[2018-08-17] MEDS: Ensure Clear 120 ML Liquid PO ×4 (09:56→22:19)
[2018-08-17] MEDS: Pantoprazole Sodium 40 MG Tablet PO (09:56)
[2018-08-17] MEDS: dilTIAZem CD 120 MG Capsule PO (09:56)
[2018-08-17 13:35] VITALS: BP 110/70; PULSE 71; RESP 16; TEMP 36.6; O2SAT 98
[2018-08-17] MEDS: Rivaroxaban 20 MG Tablet PO (17:21)
[2018-08-17 20:15] VITALS: BP 141/78; PULSE 75; RESP 16; TEMP 36.7; O2SAT 98
[2018-08-18 02:15] VITALS: BP 109/55; PULSE 62; RESP 16; TEMP 36.8; O2SAT 97
[2018-08-18] MEDS: oxyCODONE 5 MG Tablet PO ×4 (02:23→21:29)
[2018-08-18 05:39] LABS: Anion Gap 9 (5-15); BUN 21 mg/dL (7-18); BUN/Creat Ratio 23.7 RATIO (10-20); Calcium,Total 8.9 mg/dL (8.5-10.1); Chloride 106 mmol/L (98-107); Creatinine, Serum 0.89 mg/dL (0.70-1.30); EST Glomerular Filtration Rate 91 mL/min (>60); Est Glom Filt Rate - Afr Amer 110 mL/min (>60); Estimated Creatinine Clearance 84.99 ml/min; Glucose 99 mg/dL (74-106); Potassium 3.9 mmol/L (3.5-5.1); Sodium Level 139 mmol/L (136-145)
[2018-08-18 06:42] LABS: Absolute Lymphocyte Count 3.17 X10^3/ul (0.83-4.51); Absolute Neutrophil Count 4.5 X10^3/uL (2.0-7.7); Basophil# 0.04 X10^3/uL; Basophil% 0.4 % (0-1); Eosinophil# 0.45 X10^3/uL; Hematocrit 32.9 % (40-54); Hemoglobin 10.6 g/dl (13.0-16.5); Lymphocyte # 3.17 X10^3/ul (4.0); Lymphocyte % 35.1 % (19-41); Mean Corp Hgb Conc 32.2 g/gl (32-36); Mean Corpuscular Hgb 27.2 pg (27.0-32.0); Mean Corpuscular Volume 84.6 fL (80-94); Mean Platelet Vol. 9.1 fl (6.2-12.0); Monocyte# 0.88 X10^3/uL; Monocyte% 9.7 % (0-10); Neutrophil # 4.47 X10^3/uL (2.7-7.7); Neutrophil % 49.5 % (47-70); Platelet Count 328 K/mm3 (150-450); RBC Distribution Width CV 16.5 % (11.6-14.6); RBC Distribution Width SD 50.5 fl (35.1-43.9); Red Blood Count 3.89 M/mm3 (4.6-6.2)
[2018-08-18 06:43] LABS: POSITIVE COUNT NO; POSITIVE DIFFERENTIAL NO; POSITIVE MORPHOLOGY NO
[2018-08-18 08:15] VITALS: BP 129/69; PULSE 69; RESP 16; TEMP 37.2; O2SAT 98
--- NOTE | 2018-08-18 10:04 | PCM.PN.HOSP ---
Patient Problems: Active and Suspected Problems (Last Reviewed 08/01/18 @ 11:55 by Nick Hastings MD) Infection (Acute) Subjective: Patient seen and examined. Complains of pain in his right lower extremity from therapy yesterday. He had therapy shortly after he had a wound dressing change and this aggravated the pain. He denies any palpitations or dizziness, shortness of breath, abdominal pain, diarrhea vomiting. Labs and vitals reviewed. Vitals/I&O's: Vital Signs Temp Pulse Resp BP Pulse Ox 98.3 F 62 16 109/55 L 97 08/18/18 02:15 08/18/18 02:15 08/18/18 02:15 08/18/18 02:15 08/18/18 02:15 Oxygen Delivery Method Room Air Weight: 162 lb 4.163 oz Body Mass Index (BMI) 22.0 Intake and Output for Last 24 Hours 08/16/18 08/17/18 08/18/18 22:59 23:59 23:59 Intake Total 820 / 820 Output Total 1300 / 1300 Balance -480 / -480 General: Alert, Oriented x3, Cooperative, No apparent distress HEENT: Atraumatic, PERRLA, EOMI, Normocephalic Oral: Moist Mucosa Neck: Supple, No JVD, Negative Carotid Bruits Lungs: Clear to auscultation, Normal air movement, No rhonchi, No wheeze, No rales Cardiovascular: Regular rate, Regular Rhythm, Normal S1, Normal S2, No murmurs Abdomen: Bowel Sounds Present, Soft, Non Tender, Non-Distended, No Hepato-splenomegaly Extremities: No edema, Capillary Refill Less than 3 Seconds Skin: - - as under MSK Musculoskeletal: - - RLE wrapped in bandage. Lymphatic: No Cervical, Supraclavicular, or Inguinal Adenopathy Neurological: Cranial nerves II-XII grossly intact Psych/Mental Status: Normal Affect, Appropriate, Alert and oriented to time, place, person, mood and affect Microbiology Past 72 Hours 08/15/18 08:49 Tissue - Leg, Right Gram Stain - Final 08/15/18 08:49 Tissue - Leg, Right Wound Culture - Preliminary Pseudomonas aeroginosa Staphylococcus species Corynebacterium minutissimum 08/13/18 15:15 Blood Culture (Wb) - Anticubital Right Blood Culture - Preliminary No growth in 48 hours. Laboratory Results 08/18/18 05:14: WBC 9.0, RBC 3.89 L, Hgb 10.6 L, Hct 32.9 L, MCV 84.6, MCH 27.2, MCHC 32.2, RDW 16.5 H, RDW Differential 50.5 H, Plt Count 328, MPV 9.1, Immature Gran % (Auto) 0.300, Neut % (Auto) 49.5, Lymph % (Auto) 35.1, [place] % (Auto) 9.7, Eos % (Auto) 5.0, Baso % (Auto) 0.4, Absolute Neuts (auto) 4.5, Absolute Lymphs (auto) 3.17, Total Counted Not Reportable 08/18/18 05:14: Sodium 139, Potassium 3.9, Chloride 106, Carbon Dioxide 24.0, Anion Gap 9, BUN 21 H, Creatinine 0.89, Estim Creat Clear Calc 84.99, Est GFR (MDRD) Af Amer 110, Est GFR (MDRD) Non-Af 91, BUN/Creatinine Ratio 23.7 H, Glucose 99, Calcium 8.9 Current Medications Bisacodyl (Dulcolax) 5 mg PO DAILY PRN PRN Reason: Constipation Last Admin: 08/17/18 09:55 Dose: 5 mg Calcium Carbonate (Tums) 1,000 mg PO Q4H PRN PRN PRN Reason: DYSPEPSIA/INDIGESTION Diltiazem HCl (Cardizem Cd) 120 mg PO DAILY [facility] Last Admin: 08/17/18 09:56 Dose: 120 mg Levofloxacin (Levaquin Iv) 750 mg in 150 mls @ 100 mls/hr IV Q24 [facility] Last Admin: 08/17/18 09:55 Dose: 100 mls/hr Morphine Sulfate () 4 mg IV Q3H PRN PRN PRN Reason: SEVERE PAIN (6-03/19) Last Admin: 08/17/18 08:08 Dose: 4 mg Nutritional Formula ([place] - [place] Flavor) 1 packet PO BIDCM [facility] Last Admin: 08/18/18 08:12 Dose: 1 packet Nutritional Formula (Lactose Free) (Ensure Clear) 120 ml PO 4X/DAY [facility] Last Admin: 08/17/18 22:19 Dose: 120 ml Oxycodone HCl (Oxyir) 5 - 10 mg PO Q4H PRN PRN PRN Reason: SEVERE PAIN (6-03/19) Last Admin: 08/18/18 02:23 Dose: 10 mg Pantoprazole Sodium (Protonix) 40 mg PO DAILY [facility] Last Admin: 08/17/18 09:56 Dose: 40 mg Rivaroxaban (Xarelto) 20 mg PO DAILY@1700 [facility] Last Admin: 08/17/18 17:21 Dose: 20 mg Sodium Chloride () 5 - 15 ml IV UD PRN PRN Reason: SALINE FLUSH Last Admin: 08/17/18 13:38 Dose: 10 ml Medical Necessity - Tobacco Use Smoking Status: Former smoker Assessment/Plan All Active Problems (Last Reviewed 08/01/18 @ 11:55 by Nick Hastings MD) Infection (Acute) History of amputation of right foot (Resolved) Right leg DVT (Resolved) Toe ulcer, right (Resolved) 1. Right leg ulcer s/p incision and drainage with excisional debridement of nonviable muscle and subcutaneous tissue has no complaints this morning; vitals stable. has had no leucocytosis for the past few days. On IV levofloxacin. On morphine and oxycodone for pain. Podiatry and ID on board. per podiatry, to have serial debridement and irrigation this appointment Saturday with partial delayed closure and application of advanced wound care product and wound VAC. wound cultured Pseudomonas and a gram positive organism. Blood cultures were negative and fungal and acid fast bacilli culture pending. 2. Peripheral vascular disease: Stable. plavix currently on hold o/a of surgery. To resume after surgery on Saturday 3. Paroxysmal A. fib: Currently rate and rhythm controlled. on cardizem and xarelto. Discussed with podiatry- Dr Tacho reddy with patient remaining on xarelto during surgery as she doesnt anticipate there will be much bleeding. 4. Hyperlipidemia: On statin. DVT prophylaxis: On Xarelto. Code Visit Inpatient E&M: [id number] [facility] L3
--- NOTE | 2018-08-18 10:11 | PN_ITS ---
Patient Problems: Active and Suspected Problems (Last Reviewed 08/01/18 @ 11:55 by Nick Hastings MD) Infection (Acute) Subjective: Patient seen and examined. Complains of pain in his right lower extremity from therapy yesterday. He had therapy shortly after he had a wound dressing change and this aggravated the pain. He denies any palpitations or dizziness, shortness of breath, abdominal pain, diarrhea vomiting. Labs and vitals reviewed. Vitals/I&O's: Vital Signs Temp Pulse Resp BP Pulse Ox 98.3 F 62 16 109/55 L 97 08/18/18 02:15 08/18/18 02:15 08/18/18 02:15 08/18/18 02:15 08/18/18 02:15 Oxygen Delivery Method Room Air Weight: 162 lb 4.163 oz Body Mass Index (BMI) 22.0 Intake and Output for Last 24 Hours 08/16/18 08/17/18 08/18/18 22:59 23:59 23:59 Intake Total 820 / 820 Output Total 1300 / 1300 Balance -480 / -480 General: Alert, Oriented x3, Cooperative, No apparent distress HEENT: Atraumatic, PERRLA, EOMI, Normocephalic Oral: Moist Mucosa Neck: Supple, No JVD, Negative Carotid Bruits Lungs: Clear to auscultation, Normal air movement, No rhonchi, No wheeze, No rales Cardiovascular: Regular rate, Regular Rhythm, Normal S1, Normal S2, No murmurs Abdomen: Bowel Sounds Present, Soft, Non Tender, Non-Distended, No Hepato- splenomegaly Extremities: No edema, Capillary Refill Less than 3 Seconds Skin: - - as under MSK Musculoskeletal: - - RLE wrapped in bandage. Lymphatic: No Cervical, Supraclavicular, or Inguinal Adenopathy Neurological: Cranial nerves II-XII grossly intact Psych/Mental Status: Normal Affect, Appropriate, Alert and oriented to time, place, person, mood and affect Microbiology Past 72 Hours 08/15/18 08:49 Tissue - Leg, Right Gram Stain - Final 08/15/18 08:49 Tissue - Leg, Right Wound Culture - Preliminary Pseudomonas aeroginosa Staphylococcus species Corynebacterium minutissimum 08/13/18 15:15 Blood Culture (Wb) - Anticubital Right Blood Culture - Preliminary No growth in 48 hours. Laboratory Results 08/18/18 05:14: WBC 9.0, RBC 3.89 L, Hgb 10.6 L, Hct 32.9 L, MCV 84.6, MCH 27.2, MCHC 32.2, RDW 16.5 H, RDW Differential 50.5 H, Plt Count 328, MPV 9.1, Immature Gran % (Auto) 0.300, Neut % (Auto) 49.5, Lymph % (Auto) 35.1, [place] % (Auto) 9.7, Eos % (Auto) 5.0, Baso % (Auto) 0.4, Absolute Neuts (auto) 4.5, Absolute Lymphs (auto) 3.17, Total Counted Not Reportable 08/18/18 05:14: Sodium 139, Potassium 3.9, Chloride 106, Carbon Dioxide 24.0, Anion Gap 9, BUN 21 H, Creatinine 0.89, Estim Creat Clear Calc 84.99, Est GFR (MDRD) Af Amer 110, Est GFR (MDRD) Non-Af 91, BUN/Creatinine Ratio 23.7 H, Glucose 99, Calcium 8.9 Current Medications Bisacodyl (Dulcolax) 5 mg PO DAILY PRN PRN Reason: Constipation Last Admin: 08/17/18 09:55 Dose: 5 mg Calcium Carbonate (Tums) 1,000 mg PO Q4H PRN PRN PRN Reason: DYSPEPSIA/INDIGESTION Diltiazem HCl (Cardizem Cd) 120 mg PO DAILY [facility] Last Admin: 08/17/18 09:56 Dose: 120 mg Levofloxacin (Levaquin Iv) 750 mg in 150 mls @ 100 mls/hr IV Q24 [facility] Last Admin: 08/17/18 09:55 Dose: 100 mls/hr Morphine Sulfate () 4 mg IV Q3H PRN PRN PRN Reason: SEVERE PAIN (6-03/19) Last Admin: 08/17/18 08:08 Dose: 4 mg Nutritional Formula ([place] - [place] Flavor) 1 packet PO BIDCM [facility] Last Admin: 08/18/18 08:12 Dose: 1 packet Nutritional Formula (Lactose Free) (Ensure Clear) 120 ml PO 4X/DAY [facility] Last Admin: 08/17/18 22:19 Dose: 120 ml Oxycodone HCl (Oxyir) 5 - 10 mg PO Q4H PRN PRN PRN Reason: SEVERE PAIN (6-03/19) Last Admin: 08/18/18 02:23 Dose: 10 mg Pantoprazole Sodium (Protonix) 40 mg PO DAILY [facility] Last Admin: 08/17/18 09:56 Dose: 40 mg Rivaroxaban (Xarelto) 20 mg PO DAILY@1700 [facility] Last Admin: 08/17/18 17:21 Dose: 20 mg Sodium Chloride () 5 - 15 ml IV UD PRN PRN Reason: SALINE FLUSH Last Admin: 08/17/18 13:38 Dose: 10 ml Medical Necessity - Tobacco Use Smoking Status: Former smoker Assessment/Plan All Active Problems (Last Reviewed 08/01/18 @ 11:55 by Nick Hastings MD) Infection (Acute) History of amputation of right foot (Resolved) Right leg DVT (Resolved) Toe ulcer, right (Resolved) 1. Right leg ulcer * s/p incision and drainage with excisional debridement of nonviable muscle and subcutaneous tissue * has no complaints this morning; vitals stable. * has had no leucocytosis for the past few days. * On IV levofloxacin. * On morphine and oxycodone for pain. * Podiatry and ID on board. * per podiatry, to have serial debridement and irrigation this appointment Saturday with partial delayed closure and application of advanced wound care product and wound VAC. * wound cultured Pseudomonas and a gram positive organism. Blood cultures were negative and fungal and acid fast bacilli culture pending. * 2. Peripheral vascular disease: Stable. plavix currently on hold o/a of surgery. To resume after surgery on Saturday * 3. Paroxysmal A. fib: * Currently rate and rhythm controlled. * on cardizem and xarelto. Discussed with podiatry- Dr Tacho reddy with patient remaining on xarelto during surgery as she doesnt anticipate there will be much bleeding. 4. Hyperlipidemia: On statin. DVT prophylaxis: On Xarelto. Code Visit Inpatient E&M: [id number] [facility] Hosp L3
[2018-08-18] MEDS: Ensure Clear 120 ML Liquid PO ×4 (10:36→21:30)
[2018-08-18] MEDS: Pantoprazole Sodium 40 MG Tablet PO (10:36)
[2018-08-18] MEDS: levoFLOXacin IV 750 MG/150 ML BAG 100 MG IV (10:37)
[2018-08-18] MEDS: Bisacodyl 5 MG Tablet PO (10:37)
[2018-08-18] MEDS: dilTIAZem CD 120 MG Capsule PO (10:37)
[2018-08-18] MEDS: 0.9% NaCl Peripheral Flush Adult/Peds IV (11:49)
[2018-08-18] MEDS: Morphine 4 MG/ML Syringe IV ×2 (11:49→18:54)
--- NOTE | 2018-08-18 12:27 | PCM.PROGNOTE ---
Patient Problems: Active and Suspected Problems (Last Reviewed 08/01/18 @ 11:55 by Nick Hastings MD) Infection (Acute) Subjective: This 68 year old male with peripheral vascular disease and atrial fibrillation on chronic anticoagulation medication was seen bedside status post incision and drainage of widespread debridement of right infected leg. He just had his pain medication and said he is currently doing well. He denies fever, chill, nausea, vomiting, shortness of breath, chest pain again today. - Physical Exam General: Alert, Oriented x3, Cooperative Extremities: No cyanosis, Capillary Refill Less than 3 Seconds, No Calf Tenderness - Negative Yen and Watts signs bilateral, Diminished Peripheral Pulses, Edema - Improving edema Skin: Ulcer/ Wound - No erythema or malodor appreciated again today to the right lower leg. There is continued exposure of the tibialis anterior and extensor digitorum longus tendons and survival of these tendons continue to be unlikely. There continues to be no purulence on expression from the distal proximal wound and the wound bed is granular with scant fibrous and devitalized tissue noted again today. There is no eschar or necrosis Musculoskeletal: Muscle Wasting, - - Compartments remain soft to palpate to the right lower extremity. Active range of motion ankle and digits noted right lower extremity Neurological: Sensory exam intact to light touch and pain Psych/Mental Status: Normal Affect, Appropriate Vital Signs Temp Pulse Resp BP Pulse Ox 98.9 F 69 16 129/69 H 98 08/18/18 08:15 08/18/18 08:15 08/18/18 08:15 08/18/18 08:15 08/18/18 08:15 Oxygen Delivery Method Room Air Weight: 73.6 kg Body Mass Index (BMI) 22.0 Intake and Output for Last 24 Hours 08/16/18 08/17/18 08/18/18 22:59 23:59 23:59 Intake Total 820 / 820 Output Total 1300 / 1300 Balance -480 / -480 Microbiology Past 72 Hours 08/15/18 08:49 Gram Stain - Final Tissue - Leg, Right Wound Culture - Preliminary Pseudomonas aeroginosa Staphylococcus species Corynebacterium minutissimum Anaerobic Culture - Preliminary Checking for anaerobes, further studies to follow. 08/13/18 15:15 Blood Culture - Preliminary Blood Culture (Wb) - Anticubital Right No growth in 48 hours. Laboratory Tests Past 24 Hrs 08/18/18 08/18/18 05:14 05:14 WBC 9.0 RBC 3.89 L Hgb 10.6 L Hct 32.9 L MCV 84.6 MCH 27.2 MCHC 32.2 RDW 16.5 H RDW Differential 50.5 H Plt Count 328 MPV 9.1 Immature Gran % (Auto) 0.300 Neut % (Auto) 49.5 Lymph % (Auto) 35.1 [place] % (Auto) 9.7 Eos % (Auto) 5.0 Baso % (Auto) 0.4 Absolute Neuts (auto) 4.5 Absolute Lymphs (auto) 3.17 Total Counted Not Reportable Sodium 139 Potassium 3.9 Chloride 106 Carbon Dioxide 24.0 Anion Gap 9 BUN 21 H Creatinine 0.89 Estim Creat Clear Calc 84.99 Est GFR (MDRD) Af Amer 110 Est GFR (MDRD) Non-Af 91 BUN/Creatinine Ratio 23.7 H Glucose 99 Calcium 8.9 Medical Necessity - Tobacco Use Smoking Status: Former smoker Assessment/Plan All Active Problems (Last Reviewed 08/01/18 @ 11:55 by Nick Hastings MD) Infection (Acute) History of amputation of right foot (Resolved) Right leg DVT (Resolved) Toe ulcer, right (Resolved) Ulcer with necrotic muscle, right leg POD #3 incision and drainage and widespread debridement of subcutaneous and tendon necrotic tissue Infection right leg addressed surgically and medically Peripheral vascular disease On anticoagulation status post arterial thrombectomy Other medical comorbidities including malnutrition and atrial fibrillation Patient was carefully examined and evaluated again today resting in his bed. His vitals remained stable and his pain has remained controlled. No leukocytosis. His hemoglobin level remained stable. The intraoperative deep wound cultures are showing pseudomonas aeroginosa, staph species, and corynebacterium minutissimum. Infectious disease input is appreciated. His blood cultures are negative so far. He continues on IV levofloxacin well per culture results. His leg was copiously irrigated with 1L normal saline bedside today and iodoform packing and saline wet-to-dry gauze covered with Adaptic was applied. This was further dressed with saline soaked gauze, abdominal pads, Kerlix, and lightly wrapped Fady bandage. Dr. Titus will be taking this patient for another surgical procedure tomorrow. She recommends operating room for serial debridement and irrigation this upcoming Tomorrow with partial delayed closure and application of advanced wound care product and wound VAC. This will be coordinated by Dr. Titus. The preoperative indications, planned procedure, possible benefits, risks, consultations, and anticipated healing time management were discussed in detail the patient again today. No guarantees were made. He is amenable to proceed with the aforementioned surgery. Informed surgical consent will be signed. He understands this may be a continued staged procedure and comprehensive wound healing plan is necessary for limb salvage. This is not an elective surgery. Medical management, preoperative optimization and DVT prophylaxis per primary team is appreciated. His Xarelto was resumed. To continue with nutritional supplementation to optimize healing. Podiatry will continue to follow him close while in house.
[2018-08-18] MEDS: Doxycycline 100 MG CAPSULE PO ×2 (14:35→21:29)
[2018-08-18 15:33] VITALS: BP 111/69; PULSE 69; RESP 16; TEMP 36.9; O2SAT 98
--- NOTE | 2018-08-18 16:25 | PN.ID_ITS ---
Patient Problems: Active and Suspected Problems (Last Reviewed 08/01/18 @ 11:55 by Nick Hastings MD) Infection (Acute) Subjective: Feeling ok, no fever, no n/v/d. - Physical Exam General: Alert, Cooperative, No apparent distress Lungs: Clear to auscultation, Normal air movement Cardiovascular: Regular rate, Regular Rhythm Abdomen: Soft, Non Tender, Non-Distended Skin: Ulcer/ Wound - leg wrapped Vital Signs Temp Pulse Resp BP Pulse Ox 98.4 F 69 16 111/69 98 08/18/18 15:33 08/18/18 15:33 08/18/18 15:33 08/18/18 15:33 08/18/18 15:33 Oxygen Delivery Method Room Air Weight: 73.6 kg Body Mass Index (BMI) 22.0 Intake and Output for Last 24 Hours 08/16/18 08/17/18 08/18/18 22:59 23:59 23:59 Intake Total 1870 / 1870 Output Total 2100 / 2100 Balance -230 / -230 Microbiology Past 72 Hours 08/15/18 08:49 Gram Stain - Final Tissue - Leg, Right Wound Culture - Preliminary Pseudomonas aeroginosa Staphylococcus species Corynebacterium minutissimum Anaerobic Culture - Preliminary Checking for anaerobes, further studies to follow. 08/13/18 15:15 Blood Culture - Preliminary Blood Culture (Wb) - Anticubital Right No growth in 48 hours. Laboratory Tests Past 24 Hrs 08/18/18 08/18/18 05:14 05:14 WBC 9.0 RBC 3.89 L Hgb 10.6 L Hct 32.9 L MCV 84.6 MCH 27.2 MCHC 32.2 RDW 16.5 H RDW Differential 50.5 H Plt Count 328 MPV 9.1 Immature Gran % (Auto) 0.300 Neut % (Auto) 49.5 Lymph % (Auto) 35.1 [place] % (Auto) 9.7 Eos % (Auto) 5.0 Baso % (Auto) 0.4 Absolute Neuts (auto) 4.5 Absolute Lymphs (auto) 3.17 Total Counted Not Reportable Sodium 139 Potassium 3.9 Chloride 106 Carbon Dioxide 24.0 Anion Gap 9 BUN 21 H Creatinine 0.89 Estim Creat Clear Calc 84.99 Est GFR (MDRD) Af Amer 110 Est GFR (MDRD) Non-Af 91 BUN/Creatinine Ratio 23.7 H Glucose 99 Calcium 8.9 Medical Necessity - Tobacco Use Smoking Status: Former smoker Route of nutrition/ use of supplements: [] Nutritional Intake: [] IV Site: [] [place] Catheter: [] - Assessment/Plan Antibiotics: [] Assessment/Plan: [] R brown surgical site infection - neg MRSA pcr of wound neg 08/13. Wound cx with staph, diphtheroids, and PsA. s/p I&D 08/15 of necrotic tendon by Dr. Titus. Cont levkj, will add doxy for more gram pos coverage. Will follow
[2018-08-18] MEDS: Rivaroxaban 20 MG Tablet PO (17:07)
[2018-08-18 22:08] VITALS: BP 142/72; PULSE 88; RESP 16; TEMP 37.3; O2SAT 96
[2018-08-19] VITALS (20 sets, daily range): BP systolic 96–162; BP diastolic 56–99; PULSE 58–96; RESP 15–25; TEMP 36.1–37.1; O2SAT 95–100; BMI 22.0
[2018-08-19] MEDS: Morphine 4 MG/ML Syringe IV ×3 (04:13→20:33)
[2018-08-19] MEDS: 0.9% NaCl Peripheral Flush Adult/Peds IV ×4 (04:13→23:36)
[2018-08-19 08:44] LABS: Absolute Lymphocyte Count 2.86 X10^3/ul (0.83-4.51); Absolute Neutrophil Count 4.6 X10^3/uL (2.0-7.7); Basophil# 0.03 X10^3/uL; Basophil% 0.3 % (0-1); Eosinophils% 5.5 % (0-5); Hemoglobin 10.5 g/dl (13.0-16.5); Lymphocyte # 2.86 X10^3/ul (4.0); Lymphocyte % 31.2 % (19-41); Mean Corp Hgb Conc 32.8 g/gl (32-36); Mean Corpuscular Hgb 27.3 pg (27.0-32.0); Mean Corpuscular Volume 83.1 fL (80-94); Mean Platelet Vol. 8.9 fl (6.2-12.0); Monocyte# 1.12 X10^3/uL; Monocyte% 12.2 % (0-10); Neutrophil % 50.3 % (47-70); POSITIVE COUNT NO; POSITIVE DIFFERENTIAL NO; POSITIVE MORPHOLOGY NO; Platelet Count 287 K/mm3 (150-450); RBC Distribution Width CV 16.2 % (11.6-14.6); RBC Distribution Width SD 49.4 fl (35.1-43.9); Red Blood Count 3.85 M/mm3 (4.6-6.2); White Blood Count 9.2 K/mm3 (4.4-11.0)
[2018-08-19 09:13] LABS: Anion Gap 11 (5-15); BUN 16 mg/dL (7-18); BUN/Creat Ratio 17.5 RATIO (10-20); Calcium,Total 8.9 mg/dL (8.5-10.1); Chloride 101 mmol/L (98-107); Creatinine, Serum 0.92 mg/dL (0.70-1.30); EST Glomerular Filtration Rate 88 mL/min (>60); Est Glom Filt Rate - Afr Amer 106 mL/min (>60); Estimated Creatinine Clearance 82.22 ml/min; Glucose 94 mg/dL (74-106); Potassium 3.8 mmol/L (3.5-5.1); Sodium Level 138 mmol/L (136-145)
--- NOTE | 2018-08-19 10:13 | PCM.PN.HOSP ---
Patient Problems: Active and Suspected Problems (Last Reviewed 08/01/18 @ 11:55 by Nick Hastings MD) Infection (Acute) Subjective: Patient seen and examined. He had no complaints this morning. Review of systems otherwise negative. He is going for further wound debridement today by podiatry. Labs and vitals reviewed. Vitals/I&O's: Vital Signs Temp Pulse Resp BP Pulse Ox 97.9 F 61 18 120/67 98 08/19/18 07:58 08/19/18 07:58 08/19/18 07:58 08/19/18 07:58 08/19/18 07:58 Oxygen Delivery Method Room Air Weight: 162 lb 4.163 oz Body Mass Index (BMI) 22.0 Intake and Output for Last 24 Hours 08/17/18 08/18/18 08/19/18 23:59 23:59 23:59 Intake Total 3120 / 3120 600 / 600 Output Total 2900 / 2900 1775 / 1775 Balance 220 / 220 -1175 / -1175 General: Alert, Oriented x3, Cooperative, No apparent distress HEENT: Atraumatic, PERRLA, EOMI, Normocephalic Oral: Moist Mucosa Neck: Supple, No JVD, Negative Carotid Bruits Lungs: Clear to auscultation, Normal air movement, No rhonchi, No wheeze, No rales Cardiovascular: Regular rate, Regular Rhythm, Normal S1, Normal S2, No murmurs Abdomen: Bowel Sounds Present, Soft, Non Tender, Non-Distended, No Hepato-splenomegaly Extremities: No edema, Capillary Refill Less than 3 Seconds Skin: - - as under MSK Musculoskeletal: - - RLE wrapped in bandage. Lymphatic: No Cervical, Supraclavicular, or Inguinal Adenopathy Neurological: Cranial nerves II-XII grossly intact Psych/Mental Status: Normal Affect, Appropriate, Alert and oriented to time, place, person, mood and affect Microbiology Past 72 Hours 08/13/18 15:15 Blood Culture (Wb) - Anticubital Right Blood Culture - Final No growth in 5 days. 08/15/18 08:49 Tissue - Leg, Right Gram Stain - Final 08/15/18 08:49 Tissue - Leg, Right Wound Culture - Preliminary Pseudomonas aeroginosa Staphylococcus species Corynebacterium minutissimum 08/15/18 08:49 Tissue - Leg, Right Anaerobic Culture - Preliminary Checking for anaerobes, further studies to follow. Laboratory Results 08/19/18 08:05: WBC 9.2, RBC 3.85 L, Hgb 10.5 L, Hct 32.0 L, MCV 83.1, MCH 27.3, MCHC 32.8, RDW 16.2 H, RDW Differential 49.4 H, Plt Count 287, MPV 8.9, Immature Gran % (Auto) 0.500, Neut % (Auto) 50.3, Lymph % (Auto) 31.2, [place] % (Auto) 12.2 H, Eos % (Auto) 5.5 H, Baso % (Auto) 0.3, Absolute Neuts (auto) 4.6, Absolute Lymphs (auto) 2.86, Total Counted Not Reportable 08/19/18 08:05: Sodium 138, Potassium 3.8, Chloride 101, Carbon Dioxide 26.0, Anion Gap 11, BUN 16, Creatinine 0.92, Estim Creat Clear Calc 82.22, Est GFR (MDRD) Af Amer 106, Est GFR (MDRD) Non-Af 88, BUN/Creatinine Ratio 17.5, Glucose 94, Calcium 8.9 Current Medications Bisacodyl (Dulcolax) 5 mg PO DAILY PRN PRN Reason: Constipation Last Admin: 08/18/18 10:37 Dose: 5 mg Calcium Carbonate (Tums) 1,000 mg PO Q4H PRN PRN PRN Reason: DYSPEPSIA/INDIGESTION Diltiazem HCl (Cardizem Cd) 120 mg PO DAILY [facility] Last Admin: 08/18/18 10:37 Dose: 120 mg Doxycycline Monohydrate (Doxycycline) 100 mg PO BID [facility] Last Admin: 08/18/18 21:29 Dose: 100 mg Levofloxacin (Levaquin Tablet) 750 mg PO DAILY@0600 [facility] Last Admin: 08/19/18 03:47 Dose: Not Given Morphine Sulfate () 4 mg IV Q3H PRN PRN PRN Reason: SEVERE PAIN (6-10/10) Last Admin: 08/19/18 04:13 Dose: 4 mg Nutritional Formula ([place] - Brooke Flavor) [facility] Last Admin: 08/19/18 07:58 Dose: Not Given Nutritional Formula (Lactose Free) (Ensure Clear) 120 ml PO 4X/DAY [facility] Last Admin: 08/18/18 21:30 Dose: 120 ml Oxycodone HCl (Oxyir) 5 - 10 mg PO Q4H PRN PRN PRN Reason: SEVERE PAIN (6-10/10) Last Admin: 08/18/18 21:29 Dose: 10 mg Pantoprazole Sodium (Protonix) 40 mg PO DAILY [facility] Last Admin: 08/18/18 10:36 Dose: 40 mg Rivaroxaban (Xarelto) 20 mg PO DAILY@1700 [facility] Last Admin: 08/18/18 17:07 Dose: 20 mg Sodium Chloride () 5 - 15 ml IV UD PRN PRN Reason: SALINE FLUSH Last Admin: 08/19/18 04:13 Dose: 10 ml Medical Necessity - Tobacco Use Smoking Status: Former smoker Assessment/Plan All Active Problems (Last Reviewed 08/01/18 @ 11:55 by Nick Hastings MD) Infection (Acute) History of amputation of right foot (Resolved) Right leg DVT (Resolved) Toe ulcer, right (Resolved) 1. Right leg ulcer s/p incision and drainage with excisional debridement of nonviable muscle and subcutaneous tissue has no complaints this morning; vitals stable. has had no leucocytosis for the past few days. On IV levofloxacin. Doxycycline added on yesterday per ID. On morphine and oxycodone for pain. Podiatry and ID on board. per podiatry, to have serial debridement and irrigation today with partial delayed closure and application of advanced wound care product and wound VAC. wound cultured Pseudomonas, Staphylococcus and Corynebacterium minutissimum. Blood cultures were negative and fungal and acid fast bacilli culture pending. 2. Peripheral vascular disease: Stable. plavix currently on hold o/a of surgery. To resume after surgery on Saturday 3. Paroxysmal A. fib: Currently rate and rhythm controlled. on cardizem and xarelto. Discussed with podiatry- Dr Tacho reddy with patient remaining on xarelto during surgery as she doesnt anticipate there will be much bleeding. 4. Hyperlipidemia: On statin. DVT prophylaxis: On Xarelto. 08/19/18 @ 5pm Patient was noted to be very uncomfortable and distressed after surgery. EKG done showed T wave inversions in V4 and V5. Stat troponin ordered and patient to be sent to ICU for closer monitoring overnight. Cardiology consulted. Cycle troponins. Code Visit Inpatient E&M: 86927 Subs Hosp L3
--- NOTE | 2018-08-19 10:33 | NURSING ---
Pt is scheduled for surgery this afternoon per Dr Titus.
[2018-08-19] MEDS: Bupivacaine 0.25% 30 ML Vial (14:00)
--- NOTE | 2018-08-19 14:57 | PCM.OPRPT ---
Problem List (1) Infection Status: Acute (2) Wound of right lower extremity Status: Chronic Report of Operation Date of Procedure: 08/19/18 Pre-Operative Diagnosis: Right leg ulcer status post debrided infected tendon and subcutaneous tissue Post-Operative Diagnosis: Right leg ulcer status post debrided infected tendon and subcutaneous tissue Surgery/Procedure Performed:: Debridement of devitalized tendon, right leg. Application of advanced wound care product, amnio fill and epi cord. Application of wound VAC, right leg Description of Surgical Findings:: Hemostasis: No tourniquet utilized, controlled with direct pressure Materials: 500 cc of amnio fill, two 3 x 5 cm epi cord, Adaptic, 2-0 and 3-0 Prolene Complications: None The patient tolerated the procedure and anesthesia well. He was transported to the PACU with vital signs stable vascular status intact right lower extremity. He will be transferred back to the medical surgical floor upon continued stability. All postoperative orders were entered electronically. Type of Anesthesia:: General - LMA, Local - Postoperative: 14 cc of 1: 1 mixture of 1% lidocaine plain and 0.5% Marcaine plain administered and local infiltrated manner to right leg surgical site Estimated Blood Loss (mL): 50 mL Description of Procedure: Indications: This 68-year-old male with significant past medical history of atrial fibrillation and peripheral vascular disease was admitted to the hospital for infected widespread ulcer to the right leg with exposed necrotic tendon. In late June 2018, he underwent an arterial thrombectomy, angiogram, and subsequent fasciotomy at [facility] with vascular surgery. He was recently admitted to [facility] for widespread surgical debridement with incision and drainage of the right leg on 08/15/2018. He stabilized over the weekend with serial irrigations and return to the operating room today for serial limb salvage case. He is currently under the management of infectious disease and continues on doxycycline and levofloxacin. The preoperative indications, planned procedure, possible benefits, risks, complications, and anticipated healing time and management were discussed in detail with the patient. No guarantees were made. He understands and elects to proceed with surgery at this time. Surgical consent and limb were signed. He understands complications may include the following but are not limited to: continued infection, pain, scar formation, chronic pain, delayed or non healing, loss of sensation, loss of function, loss of limb or life, allergic reaction, blood clot, need for further surgery. He continues on therapeutic Xarelto treatment at this time. I answered all of his questions. Procedure in detail: The patient was transported to the operating room via cart and placed on the operating table in supine position. Final verification patient, surgery, limb designation was performed via the timeout procedure. The patient is already receiving antibiotics on the medical floor. LMA was initiated by the anesthesia team. Right lower extremity was prepped and draped in the usual aseptic manner. Surgery began in the following manner: Attention was first directed to the anterior lateral leg. Curettes and a 15 blade was used to excise any remaining devitalized and nonviable tendon which was minimal. The debrided tendon measured 5 cm x 0.3 cm. Saline irrigation was performed, and it was noted that there is no remaining necrosis, purulence, odor, or other devitalized tissue. The ulcer at this time measured 25 cm x 6 cm x 3 cm. Next partial closure was started at the proximal distal margins to reduce the ulcer size with Prolene. A combination of vertical, horizontal, and retention simple sutures were placed. Most of the exposed tendon was covered. The ulcer at this point measured 13.5 cm x 2.4 cm x 3.0 cm. Next amnio fill was packed into the exposed tendon site and cover the remaining aspect of the ulcer. This is further scaffold over with the remaining amnio cord product cut to fit. This was secured in place with 3-0 Prolene. Next a wound veil consisting of Adaptic was gently sutured in place. The wound VAC was applied according to standard protocol and was set on 125 mmHg continuous. Pressure was applied to maintain hemostasis prior to the wound VAC application and there was no pulsatile bleeding noted. Capillary fill time was less than 3 seconds to all remaining digits of the right foot. There was no leaks or evidence of infection noted at the end of the case. Additional abdominal pads and an Fady wrap applied in a noncompressive manner was used to secure the surgical site in place. After procedure: The patient tolerated the procedure and anesthesia well. He was transported to PACU vital signs stable vascular status intact to the right lower extremity. He will continue with medical stabilization on the medicine floor and I will follow him close while in house. I recommend he avoids laying on this site to reduce pressure. To reduce excessive walking activity. I recommend [place] nutritional supplementation to optimize healing. To continue on antibiotics per infectious disease. Medical management and DVT prophylaxis per primary team is appreciated. He is doing well so far and I anticipate discharge home tomorrow. He will then follow-up at the wound healing center for comprehensive wound healing plan. All postoperative orders were entered electronically. Felisha Titus DPM, [facility] Grafts/Implants Used: Yes - Complications none - Admit VTE Documentation VTE Present on Admission: Yes - Under current treatment VTE Mechan Device Prophylaxis: SCD's VTE Pharm Prophylaxis ordered?: Yes
--- NOTE | 2018-08-19 15:35 | CASEMGMT ---
RN Note: Call to [facility]. . Message left with nurse, ext [phone]-updated pt will have wound vac on dc. DC date not yet determined. Izabela SAINZN RN AC
--- NOTE | 2018-08-19 17:02 | PCM.CONS.C ---
Reason for Consult Date of Consultation: 08/19/18 Reason for Consultation: Postoperative EKG changes History of Present Illness: CAITLIN MOLINA, is a 68 M who presented to the hospital today and underwent right foot surgery. He was noted perioperatively to have EKG changes on the monitor and a 12-lead confirmed mild ST depression noted in lead V4. He was asymptomatic cardiac enzymes were drawn which were normal. Due to his previous history cardiology was asked to evaluate him. He is a gentleman with a history of significant peripheral vascular disease. He did apparently suffer an ischemic right lower extremity and underwent thrombectomy and percutaneous angioplasty. He developed compartment syndrome and needed a fasciotomy. Postoperatively he was noted to be in atrial fibrillation and was put on Xarelto and diltiazem. He is denied any chest pain or shortness breath or paroxysmal nocturnal dyspnea or pedal edema during his hospitalization an echocardiogram was performed with demonstrated preserved ejection fraction of 60-65%. The aortic valve leaflets were noted to be moderately calcified and bicuspid aortic valve cannot be completely excluded. He had been compliant with his medications up to and including the day of surgery. He has not had any neck arm or jaw discomfort to suggest angina. His physical exam today demonstrates clear lung johnson regular rate and rhythm and no pedal edema. Echocardiogram and laboratory tests were reviewed Past Medical History Allergies/Adverse Reactions: Allergies No Known Allergies Allergy (Verified 08/01/18 11:34) Home Medications: Ambulatory Orders Medication Instructions Recorded Clopidogrel Bisulfate [Plavix] 75 mg PO DAILY 05/30/17 oxycodone-acetaminophen 2.5 mg-325 1 tab PO Q6H PRN PRN 07/18/18 mg tablet Diltiazem HCl 120 mg PO DAILY 08/13/18 Rivaroxaban [Xarelto] 20 mg PO DAILY 08/13/18 Past Medical History (Chronic Problems): Chronic Problems (Last Reviewed 08/01/18 @ 11:55 by Nick Hastings MD) Postoperative atrial fibrillation (Chronic 07/04/18) Venous insufficiency (Chronic) Malnutrition (Chronic) 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 Psychiatric History: No pertinent psych hx - *Family History Maternal Family History: Family History (Last Reviewed 08/13/18 @ 15:01 by PAM Monet) Mother Arthritis Diabetes Breast cancer Brother Hypertension Father CVA (cerebral vascular accident) Paternal Family History: Family History (Last Reviewed 08/13/18 @ 15:01 by PAM Monet) Mother Arthritis Diabetes Breast cancer Brother Hypertension Father CVA (cerebral vascular accident) Lives: With Family Smoking Status: Former smoker Alcohol: None Drugs: None Review of Systems - Review of Systems General: Denies: Fever, Night Sweats, Fatigue HEENT: Denies: Vision Change Cardiovascular: Denies: Chest Discomfort, Shortness of Breath, Orthopnea, PND, Peripheral Edema, Palpitations, Lightheadedness, Dizziness, Near Syncope, Syncope Respiratory: Denies: Cough, Sputum Production, Hemoptysis Gastrointestinal: Denies: Hematemesis, Hematochezia, Melena Genitourinary: Denies: Dysuria, Hematuria Muscoloskeletal: Reports: Claudication, Foot Pain Skin: Denies: Rash Neurological: Denies: Dizziness Psychiatric: Denies: Anxiety Endocrine: Denies: Unexplained Weight Loss Hematologic/ Lymphatic: Denies: Anemia Subjectve: Pleasant gentleman in no apparent distress Objective: Vital Signs Temp Pulse Resp BP Pulse Ox 97.5 F L 73 16 117/75 99 08/19/18 16:01 08/19/18 16:01 08/19/18 16:01 08/19/18 16:01 08/19/18 16:01 Oxygen Flow Rate (L/min) 3 Oxygen Delivery Method Nasal Cannula Weight: 162 lb 4.163 oz Body Mass Index (BMI) 22.0 Intake and Output for Last 24 Hours 08/17/18 08/18/18 08/19/18 23:59 23:59 23:59 Intake Total 3120 / 3120 1600 / 1600 Output Total 2900 / 2900 2575 / 2575 Balance 220 / 220 -975 / -975 General: Awake, Alert, Oriented x 3 HEENT: PERRL, EOMI, Sclera Non Icteric Neck: Supple, Good ROM, No Lymph Node Enlargement Lungs: Clear to auscultation Cardiovascular: Regular Rhythm, Normal S1, Normal S2, No Rubs, No Gallops Murmur Murmur: Grade 1/6, Early Systolic, LLSB Vascular: No Carotid Bruits, Normal Femoral Pulses, Normal Radial Pulses, Normal Dorsalis Pedal Pulse, Normal Posterior Tibial Pulses Abdomen: Bowel Sounds Present, Soft, Non Tender, No HSM, No Organomegaly Extremities: No Cyanosis, No Clubbing, No edema, - - Right foot and leg bandaged Musculoskeletal: - Skin: No Rashes Lymphatic: No Lymph Node Enlargement Neurological: No Focal Motor or Sensory Deficit Psych/Mental Status: Appropriate 08/19/18 08:05: WBC 9.2, RBC 3.85 L, Hgb 10.5 L, Hct 32.0 L, MCV 83.1, MCH 27.3, MCHC 32.8, RDW 16.2 H, RDW Differential 49.4 H, Plt Count 287, MPV 8.9, Immature Gran % (Auto) 0.500, Neut % (Auto) 50.3, Lymph % (Auto) 31.2, [place] % (Auto) 12.2 H, Eos % (Auto) 5.5 H, Baso % (Auto) 0.3, Absolute Neuts (auto) 4.6, Total Counted Not Reportable 08/19/18 08:05: Sodium 138, Potassium 3.8, Chloride 101, Carbon Dioxide 26.0, Anion Gap 11, BUN 16, Creatinine 0.92, Est GFR (MDRD) Af Amer 106, Est GFR (MDRD) Non-Af 88, BUN/Creatinine Ratio 17.5, Glucose 94, Calcium 8.9 08/19/18 15:25: Troponin I < 0.015 Rhythm: EKG: Postoperative EKG demonstrates normal sinus rhythm with approximately [address] depression noted in lead V4 and less than 1 mm noted in V5. The above resolved and the subsequent EKG ECHO: As noted above with estimated ejection fraction of 65% Assessment/Plan 1. Postoperative EKG changes Patient has a history of known peripheral vascular disease status post previous angioplasty. He underwent toe surgery and was noted to have EKG changes. The above appears to have resolved and he did not manifest any angina. My recommendation would be to obtain a troponin series tonight and in a.m. He should continue with his diltiazem as before Continue aspirin Will start high intensity statin. He had a recent echocardiogram and I do not see a reason to repeat this. I would recommend that if his cardiac enzymes are normal in the a.m. he can be discharged for outpatient follow-up and likely stress testing. 2. Paroxysmal atrial fibrillation Patient appears to be maintaining sinus rhythm I would not recommend we make any changes with diltiazem and Xarelto will be continued 3. Dyslipidemia Will continue high intensity statin Thank you for allowing me to participate in the care of your patient. Please don't hesitate to call if any issues arise
--- NOTE | 2018-08-19 17:08 | CON.PCM_ITS ---
Reason for Consult Date of Consultation: 08/19/18 Reason for Consultation: Postoperative EKG changes History of Present Illness: CAITLIN MOLINA, is a 68 M who presented to the hospital today and underwent right foot surgery. He was noted perioperatively to have EKG changes on the monitor and a 12-lead confirmed mild ST depression noted in lead V4. He was asymptomatic cardiac enzymes were drawn which were normal. Due to his previous history cardiology was asked to evaluate him. He is a gentleman with a history of significant peripheral vascular disease. He did apparently suffer an ischemic right lower extremity and underwent thrombectomy and percutaneous a ngioplasty. He developed compartment syndrome and needed a fasciotomy. Postoperatively he was noted to be in atrial fibrillation and was put on Xarelto and diltiazem. He is denied any chest pain or shortness breath or paroxysmal nocturnal dyspnea or pedal edema during his hospitalization an echocardiogram was performed with demonstrated preserved ejection fraction of 60-65%. The aortic valve leaflets were noted to be moderately calcified and bicuspid aortic valve cannot be completely excluded. He had been compliant with his medications up to and including the day of surgery. He has not had any neck arm or jaw discomfort to suggest angina. His physical exam today demonstrates clear lung johnson regular rate and rhythm and no pedal edema. Echocardiogram and laboratory tests were reviewed Past Medical History Allergies/Adverse Reactions: Allergies No Known Allergies Allergy (Verified 08/01/18 11:34) Home Medications: Ambulatory Orders Medication Instructions Recorded Clopidogrel Bisulfate [Plavix] 75 mg PO DAILY 05/30/17 oxycodone-acetaminophen 2.5 mg-325 1 tab PO Q6H PRN PRN 07/18/18 mg tablet Diltiazem HCl 120 mg PO DAILY 08/13/18 Rivaroxaban [Xarelto] 20 mg PO DAILY 08/13/18 Past Medical History (Chronic Problems): Chronic Problems (Last Reviewed 08/01/18 @ 11:55 by Nick Hastings MD) Postoperative atrial fibrillation (Chronic 07/04/18) Venous insufficiency (Chronic) Malnutrition (Chronic) 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 Psychiatric History: No pertinent psych hx - *Family History Maternal Family History: Family History (Last Reviewed 08/13/18 @ 15:01 by PAM Monet) Mother Arthritis Diabetes Breast cancer Brother Hypertension Father CVA (cerebral vascular accident) Paternal Family History: Family History (Last Reviewed 08/13/18 @ 15:01 by PAM Monet) Mother Arthritis Diabetes Breast cancer Brother Hypertension Father CVA (cerebral vascular accident) Lives: With Family Smoking Status: Former smoker Alcohol: None Drugs: None Review of Systems - Review of Systems General: Denies: Fever, Night Sweats, Fatigue HEENT: Denies: Vision Change Cardiovascular: Denies: Chest Discomfort, Shortness of Breath, Orthopnea, PND, Peripheral Edema, Palpitations, Lightheadedness, Dizziness, Near Syncope, Syncope Respiratory: Denies: Cough, Sputum Production, Hemoptysis Gastrointestinal: Denies: Hematemesis, Hematochezia, Melena Genitourinary: Denies: Dysuria, Hematuria Muscoloskeletal: Reports: Claudication, Foot Pain Skin: Denies: Rash Neurological: Denies: Dizziness Psychiatric: Denies: Anxiety Endocrine: Denies: Unexplained Weight Loss Hematologic/ Lymphatic: Denies: Anemia Subjectve: Pleasant gentleman in no apparent distress Objective: Vital Signs Temp Pulse Resp BP Pulse Ox 97.5 F L 73 16 117/75 99 08/19/18 16:01 08/19/18 16:01 08/19/18 16:01 08/19/18 16:01 08/19/18 16:01 Oxygen Flow Rate (L/min) 3 Oxygen Delivery Method Nasal Cannula Weight: 162 lb 4.163 oz Body Mass Index (BMI) 22.0 Intake and Output for Last 24 Hours 08/17/18 08/18/18 08/19/18 23:59 23:59 23:59 Intake Total 3120 / 3120 1600 / 1600 Output Total 2900 / 2900 2575 / 2575 Balance 220 / 220 -975 / -975 General: Awake, Alert, Oriented x 3 HEENT: PERRL, EOMI, Sclera Non Icteric Neck: Supple, Good ROM, No Lymph Node Enlargement Lungs: Clear to auscultation Cardiovascular: Regular Rhythm, Normal S1, Normal S2, No Rubs, No Gallops Murmur Murmur: Grade 1/6, Early Systolic, LLSB Vascular: No Carotid Bruits, Normal Femoral Pulses, Normal Radial Pulses, Normal Dorsalis Pedal Pulse, Normal Posterior Tibial Pulses Abdomen: Bowel Sounds Present, Soft, Non Tender, No HSM, No Organomegaly Extremities: No Cyanosis, No Clubbing, No edema, - - Right foot and leg bandaged Musculoskeletal: - Skin: No Rashes Lymphatic: No Lymph Node Enlargement Neurological: No Focal Motor or Sensory Deficit Psych/Mental Status: Appropriate 08/19/18 08:05: WBC 9.2, RBC 3.85 L, Hgb 10.5 L, Hct 32.0 L, MCV 83.1, MCH 27.3, MCHC 32.8, RDW 16.2 H, RDW Differential 49.4 H, Plt Count 287, MPV 8.9, Immature Gran % (Auto) 0.500, Neut % (Auto) 50.3, Lymph % (Auto) 31.2, [place] % (Auto) 12.2 H, Eos % (Auto) 5.5 H, Baso % (Auto) 0.3, Absolute Neuts (auto) 4.6, Total Counted Not Reportable 08/19/18 08:05: Sodium 138, Potassium 3.8, Chloride 101, Carbon Dioxide 26.0, Anion Gap 11, BUN 16, Creatinine 0.92, Est GFR (MDRD) Af Amer 106, Est GFR (MDRD) Non-Af 88, BUN/Creatinine Ratio 17.5, Glucose 94, Calcium 8.9 08/19/18 15:25: Troponin I < 0.015 Rhythm: EKG: Postoperative EKG demonstrates normal sinus rhythm with approximately [address] depression noted in lead V4 and less than 1 mm noted in V5. The above re solved and the subsequent EKG ECHO: As noted above with estimated ejection fraction of 65% Assessment/Plan 1. Postoperative EKG changes * Patient has a history of known peripheral vascular disease status post previous angioplasty. He underwent toe surgery and was noted to have EKG changes. The above appears to have resolved and he did not manifest any angina. My recommendation would be to obtain a troponin series tonight and in a.m. * He should continue with his diltiazem as before * Continue aspirin * Will start high intensity statin. * He had a recent echocardiogram and I do not see a reason to repeat this. * I would recommend that if his cardiac enzymes are normal in the a.m. he can be discharged for outpatient follow-up and likely stress testing. * * 2. Paroxysmal atrial fibrillation * Patient appears to be maintaining sinus rhythm I would not recommend we make any changes with diltiazem and Xarelto will be continued * 3. Dyslipidemia * Will continue high intensity statin * Thank you for allowing me to participate in the care of your patient. Please don't hesitate to call if any issues arise
[2018-08-19] MEDS: Ensure Clear 120 ML Liquid PO (18:21)
[2018-08-19] MEDS: oxyCODONE 5 MG Tablet PO (19:35)
[2018-08-19] MEDS: Doxycycline 100 MG CAPSULE PO (21:59)
[2018-08-19] MEDS: Ketorolac 30 MG/ML Syringe IV (23:24)
[2018-08-19] MEDS: HYDROmorphone 0.5 MG/0.5 ML SYRINGE IV (23:35)
[2018-08-19] MEDS: Gabapentin 100 MG Capsule PO (23:35)
[2018-08-20] VITALS (18 sets, daily range): BP systolic 80–125; BP diastolic 43–73; PULSE 61–95; RESP 13–20; TEMP 36.6–38.2; O2SAT 93–99
[2018-08-20] MEDS: HYDROmorphone 0.5 MG/0.5 ML SYRINGE IV ×4 (04:36→21:52)
[2018-08-20] MEDS: 0.9% NaCl Peripheral Flush Adult/Peds IV ×2 (04:37→21:52)
[2018-08-20 04:57] LABS: Absolute Lymphocyte Count 2.37 X10^3/ul (0.83-4.51); Absolute Neutrophil Count 3.8 X10^3/uL (2.0-7.7); Basophil# 0.04 X10^3/uL; Basophil% 0.5 % (0-1); Eosinophil# 0.45 X10^3/uL; Eosinophils% 5.8 % (0-5); Hemoglobin 9.3 g/dl (13.0-16.5); Lymphocyte # 2.37 X10^3/ul (4.0); Lymphocyte % 30.6 % (19-41); Mean Corp Hgb Conc 32.1 g/gl (32-36); Mean Corpuscular Hgb 27.6 pg (27.0-32.0); Mean Corpuscular Volume 86.1 fL (80-94); Mean Platelet Vol. 8.9 fl (6.2-12.0); Monocyte# 1.05 X10^3/uL; Monocyte% 13.6 % (0-10); Neutrophil % 49.1 % (47-70); Platelet Count 245 K/mm3 (150-450); RBC Distribution Width CV 16.2 % (11.6-14.6); RBC Distribution Width SD 48.7 fl (35.1-43.9); Red Blood Count 3.37 M/mm3 (4.6-6.2); White Blood Count 7.7 K/mm3 (4.4-11.0)
[2018-08-20 04:58] LABS: POSITIVE COUNT NO; POSITIVE DIFFERENTIAL NO; POSITIVE MORPHOLOGY NO
[2018-08-20 05:30] LABS: Anion Gap 7 (5-15); BUN 21 mg/dL (7-18); BUN/Creat Ratio 22.4 RATIO (10-20); Calcium,Total 8.5 mg/dL (8.5-10.1); Chloride 104 mmol/L (98-107); Creatinine, Serum 0.94 mg/dL (0.70-1.30); EST Glomerular Filtration Rate 85 mL/min (>60); Est Glom Filt Rate - Afr Amer 103 mL/min (>60); Estimated Creatinine Clearance 81.46 ml/min; Glucose 98 mg/dL (74-106); Potassium 4.2 mmol/L (3.5-5.1); Sodium Level 140 mmol/L (136-145)
[2018-08-20] MEDS: levoFLOXacin 750 MG Tablet PO (06:25)
--- NOTE | 2018-08-20 08:06 | EKG12_ITS ---
Test Reason : Blood Pressure : / mmHG Vent. Rate : 082 BPM Atrial Rate : 082 BPM P-R Int : 166 ms QRS Dur : 084 ms QT Int : 360 ms P-R-T Axes : 070 -11 -34 degrees QTc Int : 420 ms Sinus rhythm with Premature atrial complexes Marked ST abnormality, possible inferior subendocardial injury Abnormal ECG Confirmed by ADAM CHAHAL ([id number]), writer editor TIARRA BAZAN ([id number]) on 08/25/2018 4:59:54 PM Referred By: Ayana Montero Confirmed By:ADAM CHAHAL
--- NOTE | 2018-08-20 08:29 | PN.CARD_ITS ---
Subjectve: Patient seen and evaluated. Doing well. Had uneventful night from the cardiovascular standpoint Objective: Vital Signs Temp Pulse Resp BP Pulse Ox 97.8 F 66 17 113/62 96 08/20/18 00:00 08/20/18 07:00 08/20/18 07:00 08/20/18 07:00 08/20/18 07:00 Oxygen Flow Rate (L/min) 2 Oxygen Delivery Method Room Air Weight: 164 lb 3.91 oz Body Mass Index (BMI) 22.0 Intake and Output for Last 24 Hours 08/18/18 08/19/18 08/20/18 23:59 23:59 23:59 Intake Total 3120 / 3120 2657 / 2657 240 / 240 Output Total 2900 / 2900 3475 / 3475 300 / 300 Balance 220 / 220 -818 / -818 -60 / -60 General: Awake, Alert, Oriented x 3 HEENT: PERRL, EOMI, Sclera Non Icteric Neck: Supple, Good ROM, No Lymph Node Enlargement Lungs: Clear to auscultation Cardiovascular: Regular Rhythm, Normal S1, Normal S2, No Murmurs, No Rubs, No Gallops Vascular: No Carotid Bruits, Normal Femoral Pulses, Normal Radial Pulses, Normal Dorsalis Pedal Pulse, Normal Posterior Tibial Pulses Abdomen: Bowel Sounds Present, Soft, Non Tender, No HSM, No Organomegaly Extremities: No Cyanosis, No Clubbing, No edema Neurological: No Focal Motor or Sensory Deficit 08/19/18 08:05: WBC 9.2, RBC 3.85 L, Hgb 10.5 L, Hct 32.0 L, MCV 83.1, MCH 27.3, MCHC 32.8, RDW 16.2 H, RDW Differential 49.4 H, Plt Count 287, MPV 8.9, Immature Gran % (Auto) 0.500, Neut % (Auto) 50.3, Lymph % (Auto) 31.2, [place] % (Auto) 12.2 H, Eos % (Auto) 5.5 H, Baso % (Auto) 0.3, Absolute Neuts (auto) 4.6, Total Count ed Not Reportable 08/19/18 08:05: Sodium 138, Potassium 3.8, Chloride 101, Carbon Dioxide 26.0, Anion Gap 11, BUN 16, Creatinine 0.92, Est GFR (MDRD) Af Amer 106, Est GFR (MDR D) Non-Af 88, BUN/Creatinine Ratio 17.5, Glucose 94, Calcium 8.9 08/19/18 15:25: Troponin I < 0.015 08/20/18 04:45: WBC 7.7, RBC 3.37 L, Hgb 9.3 L, Hct 29.0 L, MCV 86.1, MCH 27.6, MCHC 32.1, RDW 16.2 H, RDW Differential 48.7 H, Plt Count 245, MPV 8.9, Immature Gran % (Auto) 0.400, Neut % (Auto) 49.1, Lymph % (Auto) 30.6, [place] % (Auto) 13.6 H, Eos % (Auto) 5.8 H, Baso % (Auto) 0.5, Absolute Neuts (auto) 3.8, Total Counted Not Reportable 08/20/18 04:45: Sodium 140, Potassium 4.2, Chloride 104, Carbon Dioxide 29.0, Anion Gap 7, BUN 21 H, Creatinine 0.94, Est GFR (MDRD) Af Amer 103, Est GFR (MDRD) Non-Af 85, BUN/Creatinine Ratio 22.4 H, Glucose 98, Calcium 8.5, Troponin I 0.017 Rhythm: EKG: ECHO: Stress Test: Cardiac Cath: PCI: CT Surgery: Holter monitor: EPS: PPM: CXR: Chest CT Scan: Medical Necessity - Tobacco Use Smoking Status: Former smoker Assessment/Plan 1. Postoperative EKG changes * Patient has a history of known peripheral vascular disease status post previous angioplasty. He underwent toe surgery and was noted to have EKG changes. The above appears to have resolved and he did not manifest any angina. * He should continue with his diltiazem as before * Continue aspirin * Will start high intensity statin. * He had a recent echocardiogram and I do not see a reason to repeat this. * His EKG this morning does not demonstrate any significant changes and troponin remains negative and therefore I would continue him with the current therapy. * From my standpoint he can be followed up as an outpatient. 2. Paroxysmal atrial fibrillation * Patient appears to be maintaining sinus rhythm I would not recommend we make any changes with diltiazem and Xarelto will be continued * 3. Dyslipidemia * Will continue high intensity statin * Thank you for allowing me to participate in the care of your patient. Please don't hesitate to call if any issues arise
[2018-08-20] MEDS: Bisacodyl 5 MG Tablet PO (09:55)
[2018-08-20] MEDS: Doxycycline 100 MG CAPSULE PO (09:56)
[2018-08-20] MEDS: Pantoprazole Sodium 40 MG Tablet PO (09:56)
[2018-08-20] MEDS: Ensure Clear 120 ML Liquid PO ×4 (09:56→22:13)
--- NOTE | 2018-08-20 09:56 | PN_ITS ---
Patient Problems: Active and Suspected Problems (Last Reviewed 08/01/18 @ 11:55 by Nick Hastings MD) Infection (Acute) Subjective: Patient seen and examined. He feels much better than he did after surgery yesterday. His diet was uneventful. Troponins were negative. Elevated new EKG changes overnight per telemetry. He denies any chest pain, cough, palpitations, abdominal pain, diarrhea vomiting. Review of systems otherwise negative. Vitals/I&O's: Vital Signs Temp Pulse Resp BP Pulse Ox 97.8 F 66 17 113/62 96 08/20/18 00:00 08/20/18 07:00 08/20/18 07:00 08/20/18 07:00 08/20/18 07:00 Oxygen Flow Rate (L/min) 2 Oxygen Delivery Method Room Air Weight: 164 lb 3.91 oz Body Mass Index (BMI) 22.0 Intake and Output for Last 24 Hours 08/18/18 08/19/18 08/20/18 23:59 23:59 23:59 Intake Total 3120 / 3120 2657 / 2657 240 / 240 Output Total 2900 / 2900 3475 / 3475 300 / 300 Balance 220 / 220 -818 / -818 -60 / -60 General: Alert, Oriented x3, Cooperative, No apparent distress HEENT: Atraumatic, PERRLA, EOMI, Normocephalic Oral: Moist Mucosa Neck: Supple, No JVD, Negative Carotid Bruits Lungs: Clear to auscultation, Normal air movement, No rhonchi, No wheeze, No rales Cardiovascular: Regular rate, Regular Rhythm, Normal S1, Normal S2, No murmurs Abdomen: Bowel Sounds Present, Soft, Non Tender, Non-Distended, No Hepato- splenomegaly Extremities: No edema, Capillary Refill Less than 3 Seconds Skin: - - as under MSK Musculoskeletal: - - RLE wrapped in bandage. Lymphatic: No Cervical, Supraclavicular, or Inguinal Adenopathy Neurological: Cranial nerves II-XII grossly intact Psych/Mental Status: Normal Affect, Appropriate, Alert and oriented to time, place, person, mood and affect Microbiology Past 72 Hours 08/15/18 08:49 Tissue - Leg, Right Gram Stain - Final 08/15/18 08:49 Tissue - Leg, Right Wound Culture - Preliminary Pseudomonas aeroginosa Streptococcus agalactiae (B) Corynebacterium minutissimum 08/15/18 08:49 Tissue - Leg, Right Anaerobic Culture - Final Anaerobic cocci 08/13/18 15:15 Blood Culture (Wb) - Anticubital Right Blood Culture - Final No growth in 5 days. Laboratory Results 08/19/18 15:25: Troponin I < 0.015 08/20/18 04:45: WBC 7.7, RBC 3.37 L, Hgb 9.3 L, Hct 29.0 L, MCV 86.1, MCH 27.6, MCHC 32.1, RDW 16.2 H, RDW Differential 48.7 H, Plt Count 245, MPV 8.9, Immature Gran % (Auto) 0.400, Neut % (Auto) 49.1, Lymph % (Auto) 30.6, [place] % (Auto) 13.6 H, Eos % (Auto) 5.8 H, Baso % (Auto) 0.5, Absolute Neuts (auto) 3.8, Absolute Lymphs (auto) 2.37, Total Counted Not Reportable 08/20/18 04:45: Sodium 140, Potassium 4.2, Chloride 104, Carbon Dioxide 29.0, Anion Gap 7, BUN 21 H, Creatinine 0.94, Estim Creat Clear Calc 81.46, Est GFR (MDRD) Af Amer 103, Est GFR (MDRD) Non-Af 85, BUN/Creatinine Ratio 22.4 H, Glucose 98, Calcium 8.5, Troponin I 0.017 Current Medications Bisacodyl (Dulcolax) 5 mg PO DAILY PRN PRN Reason: Constipation Last Admin: 08/18/18 10:37 Dose: 5 mg Calcium Carbonate (Tums) 1,000 mg PO Q4H PRN PRN PRN Reason: DYSPEPSIA/INDIGESTION Diltiazem HCl (Cardizem Cd) 120 mg PO DAILY [facility] Last Admin: 08/19/18 10:52 Dose: Not Given Doxycycline Monohydrate (Doxycycline) 100 mg PO BID [facility] Last Admin: 08/19/18 21:59 Dose: 100 mg Hydromorphone HCl (Dilaudid Inj) 0.5 - 1 mg IV Q3H PRN PRN PRN Reason: SEVERE PAIN (6-10/10) Last Admin: 08/20/18 08:52 Dose: 0.5 mg Levofloxacin (Levaquin Tablet) 750 mg PO DAILY@0600 [facility] Last Admin: 08/20/18 06:25 Dose: 750 mg Nutritional Formula ([place] - Stone Flavor) 1 packet PO BIDCM [facility] Last Admin: 08/19/18 19:15 Dose: 1 packet Nutritional Formula (Lactose Free) (Ensure Clear) 120 ml PO 4X/DAY [facility] Last Admin: 08/19/18 23:27 Dose: Not Given Oxycodone HCl (Oxyir) 5 - 10 mg PO Q4H PRN PRN PRN Reason: SEVERE PAIN () Last Admin: 08/19/18 19:35 Dose: 10 mg Pantoprazole Sodium (Protonix) 40 mg PO DAILY [facility] Last Admin: 08/19/18 10:52 Dose: Not Given Rivaroxaban (Xarelto) 20 mg PO DAILY@1700 [facility] Last Admin: 08/19/18 17:02 Dose: Not Given Sodium Chloride () 5 - 15 ml IV UD PRN PRN Reason: SALINE FLUSH Last Admin: 08/20/18 04:37 Dose: 10 ml Medical Necessity - Tobacco Use Smoking Status: Former smoker Assessment/Plan All Active Problems (Last Reviewed 08/01/18 @ 11:55 by Nick Hastings MD) Infection (Acute) History of amputation of right foot (Resolved) Right leg DVT (Resolved) Toe ulcer, right (Resolved) 1. Right leg ulcer * s/p incision and drainage with excisional debridement of nonviable muscle and subcutaneous tissue * also had further debridement yesterday with skin grafting also with wound graft in place * has no complaints this morning; vitals stable. * On IV levofloxacin. Doxycycline added on per ID. * On morphine and oxycodone for pain. * Podiatry and ID on board. * wound cultured Pseudomonas, Staphylococcus and Corynebacterium minutissimum. Blood cultures were negative and fungal and acid fast bacilli culture pending. * 2. Abnormal EKG s/p surgery * was noted to have T wave inversions post surgery, and also felt lethargic * troponins were negative * cardiology consulted. * was started on high intensity statin * advocate conservative management as he didnt have any symptoms of angina. * 3. Peripheral vascular disease: Stable. plavix currently on hold o/a of surgery. will resume plavix tomorrow * 4. Paroxysmal A. fib: * Currently rate and rhythm controlled. * on cardizem and xarelto. * 5. Hyperlipidemia: On statin. DVT prophylaxis: On Xarelto. Code Visit Inpatient E&M: 31747 [facility] Hosp L3
[2018-08-20] MEDS: dilTIAZem CD 120 MG Capsule PO (11:34)
--- NOTE | 2018-08-20 14:00 | PCM.PN.ID ---
Patient Problems: Active and Suspected Problems (Last Reviewed 08/01/18 @ 11:55 by Nick Hastings MD) Infection (Acute) Subjective: Post-op ekg changes, transferred to icu for monitoring. No fever, no chest pain, no SOB. - Physical Exam General: Alert, Cooperative, No apparent distress Lungs: Clear to auscultation, Normal air movement Cardiovascular: Regular rate, Regular Rhythm Abdomen: Soft, Non Tender, Non-Distended Skin: Incision - leg wrapped Vital Signs Temp Pulse Resp BP Pulse Ox 97.8 F 66 17 113/62 96 08/20/18 00:00 08/20/18 07:00 08/20/18 07:00 08/20/18 07:00 08/20/18 07:00 Oxygen Flow Rate (L/min) 2 Oxygen Delivery Method Room Air Weight: 74.5 kg Body Mass Index (BMI) 22.0 Intake and Output for Last 24 Hours 08/18/18 08/19/18 08/20/18 23:59 23:59 23:59 Intake Total 3120 / 3120 2657 / 2657 890 / 890 Output Total 2900 / 2900 3475 / 3475 1000 / 1000 Balance 220 / 220 -818 / -818 -110 / -110 Microbiology Past 72 Hours 08/15/18 08:49 Gram Stain - Final Tissue - Leg, Right Wound Culture - Preliminary Pseudomonas aeroginosa Streptococcus agalactiae (B) Corynebacterium minutissimum Anaerobic Culture - Final Anaerobic cocci 08/13/18 15:15 Blood Culture - Final Blood Culture (Wb) - Anticubital Right No growth in 5 days. Laboratory Tests Past 24 Hrs 08/19/18 08/20/18 08/20/18 15:25 04:45 04:45 WBC 7.7 RBC 3.37 L Hgb 9.3 L Hct 29.0 L MCV 86.1 MCH 27.6 MCHC 32.1 RDW 16.2 H RDW Differential 48.7 H Plt Count 245 MPV 8.9 Immature Gran % (Auto) 0.400 Neut % (Auto) 49.1 Lymph % (Auto) 30.6 [place] % (Auto) 13.6 H Eos % (Auto) 5.8 H Baso % (Auto) 0.5 Absolute Neuts (auto) 3.8 Absolute Lymphs (auto) 2.37 Total Counted Not Reportable Sodium 140 Potassium 4.2 Chloride 104 Carbon Dioxide 29.0 Anion Gap 7 BUN 21 H Creatinine 0.94 Estim Creat Clear Calc 81.46 Est GFR (MDRD) Af Amer 103 Est GFR (MDRD) Non-Af 85 BUN/Creatinine Ratio 22.4 H Glucose 98 Calcium 8.5 Troponin I < 0.015 0.017 Medical Necessity - Tobacco Use Smoking Status: Former smoker Route of nutrition/ use of supplements: [] Nutritional Intake: [] IV Site: [] [place] Catheter: [] - Assessment/Plan Antibiotics: [] Assessment/Plan: [] R brown surgical site infection - neg MRSA pcr of wound neg 08/13. Wound cx with strep, diphtheroids, and PsA. s/p I&D 08/15 of necrotic tendon by Dr. Titus. Cont levaquin, will change doxy to augmentin now there is anaerobic growth. Will follow
--- NOTE | 2018-08-20 14:21 | PN_ITS ---
Patient Problems: Active and Suspected Problems (Last Reviewed 08/01/18 @ 11:55 by Nick Hastings MD) Infection (Acute) Subjective: This 68 year old male was seen bedside POD #1 right leg tendon debridement, partial delayed closure, application of advanced wound care products (amniofill and epicord), and application of wound vac. He denies fever, chills, nausea, vomiting, chest pain, loss of appetite, shortness of breath. He also had abnormal EKG changes in the post operative setting and was moved to the ICU. - Physical Exam General: Alert, Oriented x3, Cooperative Extremities: No cyanosis, Capillary Refill Less than 3 Seconds, No Calf Tenderness - negative tony sign right, Diminished Peripheral Pulses, Edema - mild right leg, - - hallux amputation noted Skin: Ulcer/ Wound - wound vac in place without leak; continuous 125 mmHg. no erythema, odor, streaking, or maceration noted., - Musculoskeletal: No Tenderness to Palpation of Joints or Extremities, Muscle Wasting, - - compartment soft righ leg. pain to palpate right leg surgical site Neurological: - - lack of normal epicritic sensation via light touch consistent with neuropathy Psych/Mental Status: Normal Affect, Appropriate Vital Signs Temp Pulse Resp BP Pulse Ox 97.8 F 66 17 113/62 96 08/20/18 00:00 08/20/18 07:00 08/20/18 07:00 08/20/18 07:00 08/20/18 07:00 Oxygen Flow Rate (L/min) 2 Oxygen Delivery Method Room Air Weight: 74.5 kg Body Mass Index (BMI) 22.0 Intake and Output for Last 24 Hours 08/18/18 08/19/18 08/20/18 23:59 23:59 23:59 Intake Total 3120 / 3120 2657 / 2657 890 / 890 Output Total 2900 / 2900 3475 / 3475 1000 / 1000 Balance 220 / 220 -818 / -818 -110 / -110 Microbiology Past 72 Hours 08/15/18 08:49 Gram Stain - Final Tissue - Leg, Right Wound Culture - Preliminary Pseudomonas aeroginosa Streptococcus agalactiae (B) Corynebacterium minutissimum Anaerobic Culture - Final Anaerobic cocci 08/13/18 15:15 Blood Culture - Final Blood Culture (Wb) - Anticubital Right No growth in 5 days. Laboratory Tests Past 24 Hrs 08/19/18 08/20/18 08/20/18 15:25 04:45 04:45 WBC 7.7 RBC 3.37 L Hgb 9.3 L Hct 29.0 L MCV 86.1 MCH 27.6 MCHC 32.1 RDW 16.2 H RDW Differential 48.7 H Plt Count 245 MPV 8.9 Immature Gran % (Auto) 0.400 Neut % (Auto) 49.1 Lymph % (Auto) 30.6 [place] % (Auto) 13.6 H Eos % (Auto) 5.8 H Baso % (Auto) 0.5 Absolute Neuts (auto) 3.8 Absolute Lymphs (auto) 2.37 Total Counted Not Reportable Sodium 140 Potassium 4.2 Chloride 104 Carbon Dioxide 29.0 Anion Gap 7 BUN 21 H Creatinine 0.94 Estim Creat Clear Calc 81.46 Est GFR (MDRD) Af Amer 103 Est GFR (MDRD) Non-Af 85 BUN/Creatinine Ratio 22.4 H Glucose 98 Calcium 8.5 Troponin I < 0.015 0.017 Medical Necessity - Tobacco Use Smoking Status: Former smoker Assessment/Plan All Active Problems (Last Reviewed 08/01/18 @ 11:55 by Nick Hastings MD) Infection (Acute) History of amputation of right foot (Resolved) Right leg DVT (Resolved) Toe ulcer, right (Resolved) Ulcer with necrotic muscle, right leg POD #1 right leg tendon debridement, partial delayed closure, application of advanced wound care products (amniofill and epicord), and application of wound vac Infection right leg addressed surgically and medically - resolving Peripheral vascular disease On anticoagulation status post arterial thrombectomy Other medical comorbidities including malnutrition and atrial fibrillation EKG abnormal change with normal serial troponins I reviewed and discussed this case including recent surgical intervention. He is clinically stable with wound vac intact. His hemoglobin level remained stable. Infectious disease input is appreciated. His blood cultures are negative so far. There was no intraoperative necrosis or purulence. Medical management, preoperative optimization and DVT prophylaxis per primary team is appreciated. Continue on all anticoagulation medication. To continue with nutritional supplementation to optimize healing. I will continue to follow him close while in house. It is ok to discharge from a surgical standpoint; to follow up next Saturday at the wound healing center. Felisha Fascione, DPM, FACFAS [facility] [phone]
[2018-08-20] MEDS: Amox/Clavulanate 875 MG Tablet PO ×2 (15:04→22:14)
[2018-08-20] MEDS: Rivaroxaban 20 MG Tablet PO (17:10)
[2018-08-20] MEDS: oxyCODONE 5 MG Tablet PO (17:10)
[2018-08-21] VITALS (7 sets, daily range): BP systolic 113–123; BP diastolic 52–62; PULSE 60–71; RESP 16–18; TEMP 36.7–37.3; O2SAT 94–99
[2018-08-21] MEDS: BENZOCAINE/MENTHOL 1 LOZENGE 2 LOZENGE MUCOUS MEM (00:04)
[2018-08-21] MEDS: oxyCODONE 5 MG Tablet PO ×3 (02:47→14:58)
[2018-08-21] MEDS: levoFLOXacin 750 MG Tablet PO (05:53)
[2018-08-21 07:15] LABS: Absolute Lymphocyte Count 2.01 X10^3/ul (0.83-4.51); Absolute Neutrophil Count 4.4 X10^3/uL (2.0-7.7); Basophil# 0.02 X10^3/uL; Basophil% 0.3 % (0-1); Eosinophil# 0.27 X10^3/uL; Eosinophils% 3.4 % (0-5); Hematocrit 28.9 % (40-54); Hemoglobin 9.4 g/dl (13.0-16.5); Lymphocyte # 2.01 X10^3/ul (4.0); Lymphocyte % 25.4 % (19-41); Mean Corp Hgb Conc 32.5 g/gl (32-36); Mean Corpuscular Hgb 27.3 pg (27.0-32.0); Monocyte# 1.23 X10^3/uL; Monocyte% 15.5 % (0-10); Neutrophil # 4.36 X10^3/uL (2.7-7.7); Platelet Count 246 K/mm3 (150-450); RBC Distribution Width CV 16.5 % (11.6-14.6); RBC Distribution Width SD 50.3 fl (35.1-43.9); Red Blood Count 3.44 M/mm3 (4.6-6.2); White Blood Count 7.9 K/mm3 (4.4-11.0)
[2018-08-21 07:16] LABS: POSITIVE COUNT NO; POSITIVE DIFFERENTIAL NO; POSITIVE MORPHOLOGY NO
[2018-08-21 07:42] LABS: Anion Gap 6 (5-15); BUN 15 mg/dL (7-18); BUN/Creat Ratio 16.5 RATIO (10-20); Calcium,Total 8.6 mg/dL (8.5-10.1); Chloride 105 mmol/L (98-107); Creatinine, Serum 0.91 mg/dL (0.70-1.30); EST Glomerular Filtration Rate 89 mL/min (>60); Est Glom Filt Rate - Afr Amer 107 mL/min (>60); Estimated Creatinine Clearance 82.56 ml/min; Glucose 95 mg/dL (74-106); Potassium 3.9 mmol/L (3.5-5.1); Sodium Level 137 mmol/L (136-145)
--- NOTE | 2018-08-21 09:31 | CASEMGMT ---
New PT/OT orders added per Dr. Hancock's verbal order. She states that pt is refusing to go home d/t 'nobody has even gotten me out of bed yet' but according to [employer] note yesterday, pt refused therapy. Pt does have HHC set up already through [facility]. Bernadette FOX CM
[2018-08-21] MEDS: Ensure Clear 120 ML Liquid PO ×2 (09:38→13:02)
[2018-08-21] MEDS: dilTIAZem CD 120 MG Capsule PO (09:38)
[2018-08-21] MEDS: Amox/Clavulanate 875 MG Tablet PO (09:38)
[2018-08-21] MEDS: Pantoprazole Sodium 40 MG Tablet PO (09:38)
--- NOTE | 2018-08-21 13:12 | PN_ITS ---
Patient Problems: Active and Suspected Problems (Last Reviewed 08/01/18 @ 11:55 by Nick Hastings MD) Infection (Acute) Subjective: Patient seen and examined. Complains of feeling weak and having a sore throat. Pain in his leg is well controlled. Patient refused to have therapy yesterday. Review of systems otherwise negative. Labs and vitals reviewed. Vitals/I&O's: Vital Signs Temp Pulse Resp BP Pulse Ox 98.8 F 66 16 117/55 L 98 08/21/18 09:15 08/21/18 11:00 08/21/18 09:15 08/21/18 09:15 08/21/18 09:15 Oxygen Flow Rate (L/min) 2 Oxygen Delivery Method Room Air Weight: 161 lb 2.526 oz Body Mass Index (BMI) 22.0 Intake and Output for Last 24 Hours 08/19/18 08/20/18 08/21/18 23:59 23:59 23:59 Intake Total 2657 / 2657 1730 / 1730 820 / 820 Output Total 3475 / 3475 1775 / 1775 1400 / 1400 Balance -818 / -818 -45 / -45 -580 / -580 General: Alert, Oriented x3, Cooperative, No apparent distress HEENT: Atraumatic, PERRLA, EOMI, Normocephalic Oral: Moist Mucosa Neck: Supple, No JVD, Negative Carotid Bruits Lungs: Clear to auscultation, Normal air movement, No rhonchi, No wheeze, No rales Cardiovascular: Regular rate, Regular Rhythm, Normal S1, Normal S2, No murmurs Abdomen: Bowel Sounds Present, Soft, Non Tender, Non-Distended, No Hepato- splenomegaly Extremities: No edema, Capillary Refill Less than 3 Seconds Skin: - - as under MSK Musculoskeletal: - - RLE foot wrapped in bandage. Lymphatic: No Cervical, Supraclavicular, or Inguinal Adenopathy Neurological: Cranial nerves II-XII grossly intact Psych/Mental Status: Normal Affect, Appropriate, Alert and oriented to time, place, person, mood and affect Microbiology Past 72 Hours 08/15/18 08:49 Tissue - Leg, Right Gram Stain - Final 08/15/18 08:49 Tissue - Leg, Right Wound Culture - Final Pseudomonas aeroginosa Streptococcus agalactiae (B) Corynebacterium minutissimum 08/15/18 08:49 Tissue - Leg, Right Anaerobic Culture - Final Anaerobic cocci 08/13/18 15:15 Blood Culture (Wb) - Anticubital Right Blood Culture - Final No growth in 5 days. Laboratory Results 08/21/18 06:50: WBC 7.9, RBC 3.44 L, Hgb 9.4 L, Hct 28.9 L, MCV 84.0, MCH 27.3, MCHC 32.5, RDW 16.5 H, RDW Differential 50.3 H, Plt Count 246, MPV 9.0, Immature Gran % (Auto) 0.400, Neut % (Auto) 55.0, Lymph % (Auto) 25.4, [place] % (Auto) 15.5 H, Eos % (Auto) 3.4, Baso % (Auto) 0.3, Absolute Neuts (auto) 4.4, Absolute Lymphs (auto) 2.01, Total Counted Not Reportable 08/21/18 06:50: Sodium 137, Potassium 3.9, Chloride 105, Carbon Dioxide 26.0, Anion Gap 6, BUN 15, Creatinine 0.91, Estim Creat Clear Calc 82.56, Est GFR (MDRD) Af Amer 107, Est GFR (MDRD) Non-Af 89, BUN/Creatinine Ratio 16.5, Glucose 95, Calcium 8.6 Current Medications Amoxicillin/Clavulanate Potassium (Augmentin Tablet) 875 mg PO BID [facility] Last Admin: 08/21/18 09:38 Dose: 875 mg Bisacodyl (Dulcolax) 5 mg PO DAILY PRN PRN Reason: Constipation Last Admin: 08/20/18 09:55 Dose: 5 mg Calcium Carbonate (Tums) 1,000 mg PO Q4H PRN PRN PRN Reason: DYSPEPSIA/INDIGESTION Diltiazem HCl (Cardizem Cd) 120 mg PO DAILY [facility] Last Admin: 08/21/18 09:38 Dose: 120 mg Hydromorphone HCl (Dilaudid Inj) 0.5 - 1 mg IV Q3H PRN PRN PRN Reason: SEVERE PAIN (6-10/10) Last Admin: 08/20/18 21:52 Dose: 0.5 mg Levofloxacin (Levaquin Tablet) 750 mg PO DAILY@0600 [facility] Last Admin: 08/21/18 05:53 Dose: 750 mg Nutritional Formula ([place] - [place] Flavor) 1 packet PO BIDCM [facility] Last Admin: 08/21/18 09:38 Dose: 1 packet Nutritional Formula (Lactose Free) (Ensure Clear) 120 ml PO 4X/DAY [facility] Last Admin: 08/21/18 13:02 Dose: 120 ml Oxycodone HCl (Oxyir) 5 - 10 mg PO Q4H PRN PRN PRN Reason: SEVERE PAIN (6-10/10) Last Admin: 08/21/18 09:38 Dose: 10 mg Pantoprazole Sodium (Protonix) 40 mg PO DAILY [facility] Last Admin: 08/21/18 09:38 Dose: 40 mg Rivaroxaban (Xarelto) 20 mg PO DAILY@1700 [facility] Last Admin: 08/20/18 17:10 Dose: 20 mg Sodium Chloride () 5 - 15 ml IV UD PRN PRN Reason: SALINE FLUSH Last Admin: 08/20/18 21:52 Dose: 10 ml Throat Lozenges (Cepacol Sore Throat Lozenge) 2 lozenge MUCOUS MEM Q2H PRN PRN PRN Reason: SORE THROAT Last Admin: 08/21/18 00:04 Dose: 2 lozenge Medical Necessity - Tobacco Use Smoking Status: Former smoker Assessment/Plan All Active Problems (Last Reviewed 08/01/18 @ 11:55 by Nick Hastings MD) Infection (Acute) History of amputation of right foot (Resolved) Right leg DVT (Resolved) Toe ulcer, right (Resolved) 1. Right leg ulcer * s/p incision and drainage with excisional debridement of nonviable muscle and subcutaneous tissue * also had further debridement 2 days ago with skin grafting also with wound graft in place * has no complaints this morning; vitals stable. * On IV levofloxacin. Doxycycline changed to Augmentin per ID. * On morphine and oxycodone for pain. * Podiatry and ID on board. * wound cultured Pseudomonas, Staphylococcus and Corynebacterium minutissimum. Blood cultures were negative and fungal and acid fast bacilli culture pending. * 2. Abnormal EKG s/p surgery * was noted to have T wave inversions post surgery, and also felt lethargic * troponins were negative * cardiology consulted-recomend conservative management as he didnt have any symptoms of angina. * was started on high intensity statin * advocate conservative management as he didnt have any symptoms of angina. * 3. Peripheral vascular disease: Stable. WIll resume plavix today. Was held o/a of surgery. 4. Paroxysmal A. fib: * Currently rate and rhythm controlled. * on cardizem and xarelto. * 5. Hyperlipidemia: On statin. DVT prophylaxis: On Xarelto. Position: Patient states he does not feel comfortable going home today and wants to work with therapy today to see how much he can mobilize. Plan for DC tomorrow. Code Visit Inpatient E&M: 92978 Subs Hosp L2
--- NOTE | 2018-08-21 13:58 | PCM.PN.ID ---
Patient Problems: Active and Suspected Problems (Last Reviewed 08/01/18 @ 11:55 by Nick Hastings MD) Infection (Acute) Subjective: C/o sore throat and not feeling well. No chest pain or SOB. No fever. - Physical Exam General: Alert, Cooperative, No apparent distress HEENT: - - no erythema in posterior pharynx Lungs: Clear to auscultation, Normal air movement Cardiovascular: Regular rate, Regular Rhythm Abdomen: Soft, Non Tender, Non-Distended Skin: No rashes, Ulcer/ Wound - wrapped Vital Signs Temp Pulse Resp BP Pulse Ox 98.8 F 66 16 117/55 L 98 08/21/18 09:15 08/21/18 11:00 08/21/18 09:15 08/21/18 09:15 08/21/18 09:15 Oxygen Flow Rate (L/min) 2 Oxygen Delivery Method Room Air Weight: 73.1 kg Body Mass Index (BMI) 22.0 Intake and Output for Last 24 Hours 08/19/18 08/20/18 08/21/18 23:59 23:59 23:59 Intake Total 2657 / 2657 1730 / 1730 820 / 820 Output Total 3475 / 3475 1775 / 1775 1400 / 1400 Balance -818 / -818 -45 / -45 -580 / -580 Microbiology Past 72 Hours 08/21/18 10:35 Respiratory Panel (PCR) - Final Mucosa - Nasopharyngeal 08/15/18 08:49 Gram Stain - Final Tissue - Leg, Right Wound Culture - Final Pseudomonas aeroginosa Streptococcus agalactiae (B) Corynebacterium minutissimum Anaerobic Culture - Final Anaerobic cocci 08/13/18 15:15 Blood Culture - Final Blood Culture (Wb) - Anticubital Right No growth in 5 days. Laboratory Tests Past 24 Hrs 08/21/18 08/21/18 06:50 06:50 WBC 7.9 RBC 3.44 L Hgb 9.4 L Hct 28.9 L MCV 84.0 MCH 27.3 MCHC 32.5 RDW 16.5 H RDW Differential 50.3 H Plt Count 246 MPV 9.0 Immature Gran % (Auto) 0.400 Neut % (Auto) 55.0 Lymph % (Auto) 25.4 [place] % (Auto) 15.5 H Eos % (Auto) 3.4 Baso % (Auto) 0.3 Absolute Neuts (auto) 4.4 Absolute Lymphs (auto) 2.01 Total Counted Not Reportable Sodium 137 Potassium 3.9 Chloride 105 Carbon Dioxide 26.0 Anion Gap 6 BUN 15 Creatinine 0.91 Estim Creat Clear Calc 82.56 Est GFR (MDRD) Af Amer 107 Est GFR (MDRD) Non-Af 89 BUN/Creatinine Ratio 16.5 Glucose 95 Calcium 8.6 Medical Necessity - Tobacco Use Smoking Status: Former smoker Route of nutrition/ use of supplements: [] Nutritional Intake: [] IV Site: [] [place] Catheter: [] - Assessment/Plan Antibiotics: [] Assessment/Plan: [] R brown surgical site infection - neg MRSA pcr of wound neg 08/13. Wound cx with strep, diphtheroids, and PsA. s/p I&D 08/15 of necrotic tendon by Dr. Titus. Cont levaquin and augmentin for at least more week of abx. sore throat - viral panel to be sent. Will follow
--- NOTE | 2018-08-21 14:20 | CASEMGMT ---
Therapy states no concerns with pt going home with his [facility] PT at this time. Dr. Hancock asks for RN to see if pt is ok to leave today now as he was adamant with not leaving earlier this am. Pt states that he is worried about pain control as he is getting dilaudid and 2 percocets every 3 hours here and he is worried about keeping pain controlled at home. Dr. Hancock updated on this at this time and states that she will keep pt until tomorrow. Bernadette FOX CM
--- NOTE | 2018-08-21 17:07 | DCINST_ITS ---
- Discharge Diagnoses Current Active Problems: Current Active and Chronic Problems (Last Reviewed 08/01/18 @ 11:55 by Nick Hastings MD) Infection (Acute) You will use the following diet at home:: Cardiac Your food should be the consistency of: Regular Your liquids should be the consistency of: Regular/Thin Discharge Activity: Return to Normal Activity Weight Bearing Status: Weight bearing as tolerated Call your doctor if you observe: Fever of 101 or Higher, Uncontrolled pain Instructions: Discharge Instructions for Cellulitis Allergies/Adverse Reactions: Allergies No Known Allergies Allergy (Verified 08/01/18 11:34) Medications to take at Discharge Clopidogrel Bisulfate [Plavix] 75 mg PO DAILY 05/30/17 Diltiazem HCl 120 mg PO DAILY 08/13/18 Rivaroxaban [Xarelto] 20 mg PO DAILY 08/13/18 Amox/Clavulanate Tablet [Augmentin Tablet] 875 mg PO BID #14 tablet 08/21/18 levoFLOXacin tablet [Levaquin tablet] 750 mg PO DAILY@0600 #7 tablet 08/21/18 The following prescriptions were given: levoFLOXacin tablet [Levaquin tablet] 750 mg PO DAILY@0600 #7 tablet Amox/Clavulanate Tablet [Augmentin Tablet] 875 mg PO BID #14 tablet Primary Care Physician: Cristopher Heart MD [Primary Care Provider] - Please follow up with your Primary Care Physician in: one week Test Results: Test results from this visit will be discussed in further detail at your follow- up appointment, if applicable. Please Follow Up With: Felisha Titus DPM When: 1 week Please Follow Up With: Ray Baum MD When: one week Proposed Discharge Date: 08/21/18
--- NOTE | 2018-08-21 17:07 | PCM.DC.SUM ---
Discharge Date and Diagnosis - Problem List Patient Problems: Active and Suspected Problems (Last Reviewed 08/01/18 @ 11:55 by Nick Hastings MD) Infection (Acute) Date of Admission: 08/13/18 Date of Discharge: 08/21/18 - Primary Discharge Diagnosis Active and Suspected Problems (Last Reviewed 08/01/18 @ 11:55 by Nick Hastings MD) Infection (Acute) cellulitis of the RLE s'p debridement Post operative EKG changes - Secondary Discharge Diagnosis Chronic Problems (Last Reviewed 08/01/18 @ 11:55 by Nick Hastings MD) Postoperative atrial fibrillation (Chronic 07/04/18) Venous insufficiency (Chronic) Malnutrition (Chronic) 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) Tobacco abuse (Chronic) Bilateral claudication of lower limb (Chronic) Wound of right lower extremity (Chronic) Paroxysmal atrial fibrillation (Chronic) Peripheral arterial occlusive disease (Chronic) Ischemic RLE 07/04/18 Hospital Course and Treatment Consultations 08/17/18 13:12 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 He had been followed up at the wound center for this right lower extremity wound which resulted from fasciotomy on July 07, 2018 for compartmental syndrome and DVT at [facility]. He completed his antibiotic regimen but subsequently started having fever and chills as well as increased right lower extremity pain in order. He was seen by podiatry and referred to the hospital for admission for IV antibiotics and debridement. He was managed for right lower extremity cellulitis. He was started on IV vancomycin and Zosyn. Wound cultures were obtained and podiatry and infectious disease were consulted. He had right lower extremity incision and drainage with right lower extremity excisional debridement of nonviable muscle and subcutaneous tissue. Antibiotics was subsequently switched to IV levofloxacin on account of wound culturing Pseudomonas, Staphylococcus and diphtheroids. Tigecycline was substernally added on for more gram-positive coverage. He had repeat debridement of the right lower extremity on 08/19/2018. After the second debridement, patient had postoperative EKG changes suspicious for an NC as he had ST depression and T wave inversions. Troponins x3 were negative. Cardiology was consulted and thought things were just postoperative EKG changes and did not merit any further investigation. Augmentin was added on and doxycycline discontinued after cultures also grew anaerobes. Patient remained stable and was discharged home on 08/21/2018 with a prescription for p.o. Levaquin and p.o. Augmentin for 1 week. Pain medications scripts were given by podiatry. He was discharged home with home health care. He is to follow-up with his primary care doctor, podiatry and infectious disease in 1 week. Patient seen and examined prior to discharge. Complained of feeling a bit weak and had a sore throat. Pain was well controlled. He had issues of physical therapy yesterday but was amenable to working with him today. Labs and vitals reviewed. Home medication reviewed and reconciled. Respiratory panel checked on account of sore throat was negative. on Examination] Vital Signs Height 6 ft Weight: 161 lb 2.526 oz Weight in Pounds 161.2 lbs Pulse Ox 99 Temperature 98.1 F Pulse Rate 68 Respiratory Rate 16 Blood Pressure [BP] 106/61 Blood Pressure 123/52 Blood Pressure Position [BP] Semi-Fowlers Blood Pressure Position Semi-Fowlers General: Alert, Oriented x3, Cooperative, No apparent distress HEENT: Atraumatic, PERRLA, EOMI, Normocephalic Oral: Moist Mucosa Neck: Supple, No JVD, Negative Carotid Bruits Lungs: Clear to auscultation, Normal air movement, No rhonchi, No wheeze, No rales Cardiovascular: Regular rate, Regular Rhythm, Normal S1, Normal S2, No murmurs Abdomen: Bowel Sounds Present, Soft, Non Tender, Non-Distended, No Hepato-splenomegaly Extremities: No edema, Capillary Refill Less than 3 Seconds Skin: - - as under MSK Musculoskeletal: - - RLE foot wrapped in bandage. Lymphatic: No Cervical, Supraclavicular, or Inguinal Adenopathy Neurological: Cranial nerves II-XII grossly intact Psych/Mental Status: Normal Affect, Appropriate, Alert and oriented to time, place, person, mood and affect Plan as above. Patient Problems: Active and Suspected Problems (Last Reviewed 08/01/18 @ 11:55 by Nick Hastings MD) Infection (Acute) - Physical Exam Vital Signs Temp Pulse Resp BP Pulse Ox 98.1 F 68 16 123/52 H 99 08/21/18 15:15 08/21/18 15:15 08/21/18 15:15 08/21/18 15:15 08/21/18 15:15 Oxygen Flow Rate (L/min) 2 Oxygen Delivery Method Room Air Weight: 161 lb 2.526 oz Body Mass Index (BMI) 22.0 Intake and Output for Last 24 Hours 08/19/18 08/20/18 08/21/18 23:59 23:59 23:59 Intake Total 2657 / 2657 1730 / 1730 820 / 820 Output Total 3475 / 3475 1775 / 1775 1400 / 1400 Balance -818 / -818 -45 / -45 -580 / -580 Microbiology Past 72 Hours 08/21/18 10:35 Respiratory Panel (PCR) - Final Mucosa - Nasopharyngeal 08/15/18 08:49 Gram Stain - Final Tissue - Leg, Right Wound Culture - Final Pseudomonas aeroginosa Streptococcus agalactiae (B) Corynebacterium minutissimum Anaerobic Culture - Final Anaerobic cocci 08/13/18 15:15 Blood Culture - Final Blood Culture (Wb) - Anticubital Right No growth in 5 days. Laboratory Tests Past 24 Hrs 08/21/18 08/21/18 06:50 06:50 WBC 7.9 RBC 3.44 L Hgb 9.4 L Hct 28.9 L MCV 84.0 MCH 27.3 MCHC 32.5 RDW 16.5 H RDW Differential 50.3 H Plt Count 246 MPV 9.0 Immature Gran % (Auto) 0.400 Neut % (Auto) 55.0 Lymph % (Auto) 25.4 [place] % (Auto) 15.5 H Eos % (Auto) 3.4 Baso % (Auto) 0.3 Absolute Neuts (auto) 4.4 Absolute Lymphs (auto) 2.01 Total Counted Not Reportable Sodium 137 Potassium 3.9 Chloride 105 Carbon Dioxide 26.0 Anion Gap 6 BUN 15 Creatinine 0.91 Estim Creat Clear Calc 82.56 Est GFR (MDRD) Af Amer 107 Est GFR (MDRD) Non-Af 89 BUN/Creatinine Ratio 16.5 Glucose 95 Calcium 8.6 Discharge Diet: Low fat/ Low Cholesterol Discharge Activity: Return to Normal Activity Weight Bearing Status: Weight bearing as tolerated Call your doctor if you observe: Fever of 101 or Higher, Uncontrolled pain Home Medications: Medications to take at Discharge Clopidogrel Bisulfate [Plavix] 75 mg PO DAILY 05/30/17 Diltiazem HCl 120 mg PO DAILY 08/13/18 Rivaroxaban [Xarelto] 20 mg PO DAILY 08/13/18 Amox/Clavulanate Tablet [Augmentin Tablet] 875 mg PO BID #14 tablet 08/21/18 levoFLOXacin tablet [Levaquin tablet] 750 mg PO DAILY@0600 #7 tablet 08/21/18 Following Prescrptions Were Given to Patient: levoFLOXacin tablet [Levaquin tablet] 750 mg PO DAILY@0600 #7 tablet Amox/Clavulanate Tablet [Augmentin Tablet] 875 mg PO BID #14 tablet Primary Care Physician: Cristopher Heart MD [Primary Care Provider] - Please follow up with your Primary Care Physician in: one week Please Follow Up With: Felisha Titus DPM When: 1 week Please Follow Up With: Ray Baum MD When: one week Patient Instructions: Discharge Instructions for Cellulitis Disposition: Home with Home Health Minutes spent on discharge:: 40 Patient Condition:: Stable Medical Necessity - Tobacco Use Smoking Status: Former smoker Meaningful Use Info Meaningful Use Diagnoses (Choose all that apply): None applicable Code Visit Inpatient E&M: 53535 Disch Hosp
--- NOTE | 2018-08-21 17:14 | DS.PCM_ITS ---
Discharge Date and Diagnosis - Problem List Patient Problems: Active and Suspected Problems (Last Reviewed 08/01/18 @ 11:55 by Nick Hastings MD) Infection (Acute) Date of Admission: 08/13/18 Date of Discharge: 08/21/18 - Primary Discharge Diagnosis Active and Suspected Problems (Last Reviewed 08/01/18 @ 11:55 by Nick Hastings MD) Infection (Acute) cellulitis of the RLE s'p debridement Post operative EKG changes - Secondary Discharge Diagnosis Chronic Problems (Last Reviewed 08/01/18 @ 11:55 by Nick Hastings MD) Postoperative atrial fibrillation (Chronic 07/04/18) Venous insufficiency (Chronic) Malnutrition (Chronic) 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) Tobacco abuse (Chronic) Bilateral claudication of lower limb (Chronic) Wound of right lower extremity (Chronic) Paroxysmal atrial fibrillation (Chronic) Peripheral arterial occlusive disease (Chronic) Ischemic RLE 07/04/18 Hospital Course and Treatment Consultations 08/17/18 13:12 Consult: Onc/Wound/lymphedema therapist Routine Comment: Podiatry-Felisha Titus cardiology- Dr Hastings Operations: None Summary of Care Provided: The patient is a 68 year old M with past medical history as listed who was 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 He had been followed up at the wound center for this right lower extremity wound which resulted from fasciotomy on July 07, 2018 for compartmental syndrome and DVT at [facility]. He completed his antibiotic regimen but subsequently started having fever and chills as well as increased right lower extremity pain in order. He was seen by podiatry and referred to the hospital for admission for IV antibiotics and debridement. He was managed for right lower extremity cellulitis. He was started on IV vancomycin and Zosyn. Wound cultures were obtained and podiatry and infectious disease were consulted. He had right lower extremity incision and drainage with right lower extremity excisional debridement of nonviable muscle and subcutaneous tissue. Antibiotics was subsequently switched to IV levofloxacin on account of wound culturing Pseudomonas, Staphylococcus and diphtheroids. Tigecycline was substernally added on for more gram-positive coverage. He had repeat debridement of the right lower extremity on 08/19/2018. After the second debridement, patient had postoperative EKG changes suspicious for an MN as he had ST depression and T wave inversions. Troponins x3 were negative. Cardiology was consulted and thought things were just postoperative EKG changes and did not merit any further investigation. Augmentin was added on and doxycycline discontinued after cultures also grew anaerobes. Patient remained stable and was discharged home on 08/21/2018 with a prescription for p.o. Levaquin and p.o. Augmentin for 1 week. Pain medications scripts were give n by podiatry. He was discharged home with home health care. He is to follow- up with his primary care doctor, podiatry and infectious disease in 1 week. Patient seen and examined prior to discharge. Complained of feeling a bit weak and had a sore throat. Pain was well controlled. He had issues of physical therapy yesterday but was amenable to working with him today. Labs and vitals reviewed. Home medication reviewed and reconciled. Respiratory panel checked on account of sore throat was negative. on Examination] Vital Signs Height 6 ft Weight: 161 lb 2.526 oz Weight in Pounds 161.2 lbs Pulse Ox 99 Temperature 98.1 F Pulse Rate 68 Respiratory Rate 16 Blood Pressure [BP] 106/61 Blood Pressure 123/52 Blood Pressure Position [BP] Semi-Fowlers Blood Pressure Position Semi-Fowlers General: Alert, Oriented x3, Cooperative, No apparent distress HEENT: Atraumatic, PERRLA, EOMI, Normocephalic Oral: Moist Mucosa Neck: Supple, No JVD, Negative Carotid Bruits Lungs: Clear to auscultation, Normal air movement, No rhonchi, No wheeze, No rales Cardiovascular: Regular rate, Regular Rhythm, Normal S1, Normal S2, No murmurs Abdomen: Bowel Sounds Present, Soft, Non Tender, Non-Distended, No Hepato- splenomegaly Extremities: No edema, Capillary Refill Less than 3 Seconds Skin: - - as under MSK Musculoskeletal: - - RLE foot wrapped in bandage. Lymphatic: No Cervical, Supraclavicular, or Inguinal Adenopathy Neurological: Cranial nerves II-XII grossly intact Psych/Mental Status: Normal Affect, Appropriate, Alert and oriented to time, place, person, mood and affect Plan as above. Patient Problems: Active and Suspected Problems (Last Reviewed 08/01/18 @ 11:55 by Nick Hastings MD) Infection (Acute) - Physical Exam Vital Signs Temp Pulse Resp BP Pulse Ox 98.1 F 68 16 123/52 H 99 08/21/18 15:15 08/21/18 15:15 08/21/18 15:15 08/21/18 15:15 08/21/18 15:15 Oxygen Flow Rate (L/min) 2 Oxygen Delivery Method Room Air Weight: 161 lb 2.526 oz Body Mass Index (BMI) 22.0 Intake and Output for Last 24 Hours 08/19/18 08/20/18 08/21/18 23:59 23:59 23:59 Intake Total 2657 / 2657 1730 / 1730 820 / 820 Output Total 3475 / 3475 1775 / 1775 1400 / 1400 Balance -818 / -818 -45 / -45 -580 / -580 Microbiology Past 72 Hours 08/21/18 10:35 Respiratory Panel (PCR) - Final Mucosa - Nasopharyngeal 08/15/18 08:49 Gram Stain - Final Tissue - Leg, Right Wound Culture - Final Pseudomonas aeroginosa Streptococcus agalactiae (B) Corynebacterium minutissimum Anaerobic Culture - Final Anaerobic cocci 08/13/18 15:15 Blood Culture - Final Blood Culture (Wb) - Anticubital Right No growth in 5 days. Laboratory Tests Past 24 Hrs 08/21/18 08/21/18 06:50 06:50 WBC 7.9 RBC 3.44 L Hgb 9.4 L Hct 28.9 L MCV 84.0 MCH 27.3 MCHC 32.5 RDW 16.5 H RDW Differential 50.3 H Plt Count 246 MPV 9.0 Immature Gran % (Auto) 0.400 Neut % (Auto) 55.0 Lymph % (Auto) 25.4 Rooks % (Auto) 15.5 H Eos % (Auto) 3.4 Baso % (Auto) 0.3 Absolute Neuts (auto) 4.4 Absolute Lymphs (auto) 2.01 Total Counted Not Reportable Sodium 137 Potassium 3.9 Chloride 105 Carbon Dioxide 26.0 Anion Gap 6 BUN 15 Creatinine 0.91 Estim Creat Clear Calc 82.56 Est GFR (MDRD) Af Amer 107 Est GFR (MDRD) Non-Af 89 BUN/Creatinine Ratio 16.5 Glucose 95 Calcium 8.6 Discharge Diet: Low fat/ Low Cholesterol Discharge Activity: Return to Normal Activity Weight Bearing Status: Weight bearing as tolerated Call your doctor if you observe: Fever of 101 or Higher, Uncontrolled pain Home Medications: Medications to take at Discharge Clopidogrel Bisulfate [Plavix] 75 mg PO DAILY 05/30/17 Diltiazem HCl 120 mg PO DAILY 08/13/18 Rivaroxaban [Xarelto] 20 mg PO DAILY 08/13/18 Amox/Clavulanate Tablet [Augmentin Tablet] 875 mg PO BID #14 tablet 08/21/18 levoFLOXacin tablet [Levaquin tablet] 750 mg PO DAILY@0600 #7 tablet 08/21/18 Following Prescrptions Were Given to Patient: levoFLOXacin tablet [Levaquin tablet] 750 mg PO DAILY@0600 #7 tablet Amox/Clavulanate Tablet [Augmentin Tablet] 875 mg PO BID #14 tablet Primary Care Physician: Cristopher Heart MD [Primary Care Provider] - Please follow up with your Primary Care Physician in: one week Please Follow Up With: Felisha Titus DPM When: 1 week Please Follow Up With: Ray Baum MD When: one week Patient Instructions: Discharge Instructions for Cellulitis Disposition: Home with Home Health Minutes spent on discharge:: 40 Patient Condition:: Stable Medical Necessity - Tobacco Use Smoking Status: Former smoker Meaningful Use Info Meaningful Use Diagnoses (Choose all that apply): None applicable Code Visit Inpatient E&M: 53324 Disch Hosp
[2018-08-21] MEDS: Rivaroxaban 20 MG Tablet PO (17:20)
--- NOTE | 2018-08-21 17:28 | DCINST_ITS ---
Discharge Diet: No Restrictions, Low fat/ Low Cholesterol Discharge Activity: Return to Normal Activity Weight Bearing Status: Weight bearing as tolerated Call your doctor if you observe: Fever of 101 or Higher, Calf discomfort, Uncontrolled pain, - - leaking wound vac Cleanse incision/area with: Keep Dressing Clean & Dry Instructions: Discharge Instructions for Cellulitis Allergies/Adverse Reactions: Allergies No Known Allergies Allergy (Verified 08/01/18 11:34) Medications to take at Discharge Clopidogrel Bisulfate [Plavix] 75 mg PO DAILY 05/30/17 Diltiazem HCl 120 mg PO DAILY 08/13/18 Rivaroxaban [Xarelto] 20 mg PO DAILY 08/13/18 Amox/Clavulanate Tablet [Augmentin Tablet] 875 mg PO BID #14 tablet 08/21/18 levoFLOXacin tablet [Levaquin tablet] 750 mg PO DAILY@0600 #7 tablet 08/21/18 The following prescriptions were given: levoFLOXacin tablet [Levaquin tablet] 750 mg PO DAILY@0600 #7 tablet Amox/Clavulanate Tablet [Augmentin Tablet] 875 mg PO BID #14 tablet Primary Care Physician: Cristopher Heart MD [Primary Care Provider] - Please follow up with your Primary Care Physician in: one week Test Results: Test results from this visit will be discussed in further detail at your follow- up appointment, if applicable. Please Follow Up With: Felisha Titus, DEYSIM - [phone] When: 1 week (SAT[facility] Call [facility] sooner if concer Please Follow Up With: Ray Baum MD When: one week Proposed Discharge Date: 08/21/18
--- NOTE | 2018-08-22 08:09 | CASEMGMT ---
Call to Jesusita at [facility] and she is aware of pt discharge last pm. Resumption of care order along with d/c summary/instructions faxed to [facility] at this time. Bernadette FOX CM
--- NOTE | 2018-08-22 15:18 | CASEMGMT ---
RUDDY PENDLETON Discharge Follow-Up Phone Call. Kala: Nilo Strata: 3 Discharge Date: 08/21/18 Adm Dx: Rt leg infection. Call to pt to inquire about how he has been doing since being discharged from the hospital. He stated, I guess I've been doing okay. Pt states he was able to get his prescriptions, does not have any questions about the discharge instructions or medications, and states his daughter is taking care of making appts. Inquired if [facility] has contacted him since he was discharged and he states he has not heard from them. Pt states I doubt if I'll be hearing from them until Saturday. Pt made aware [facility]'s try to follow up with pt's within 24-48 hrs of discharging from the hospital. Instructed that if he needs anything or has any concerns/questions for them, for him to call [facility]. Pt voices understanding. Denies any concerns/needs at this time. Annelise LORENZO RN, CM
--- NOTE | 2018-08-22 16:43 | CASEMGMT ---
RUDDY CM Note: DC summary and insurance faxed to [facility] @ . Izabela LORENZO RN ACM
== END 2018-08-21 18:25 | disposition home or self-care (01) | DRG 857 ==
LOC: MS2 08-18 08:14 → ICU 08-19 16:13 → PCU 08-20 16:24
PROVIDERS: Anesthesiology; Podiatrist; Admitting Provider Internal Medicine; Family Provider Internal Medicine; PCP Internal Medicine; Referring Provider Internal Medicine; Visit Provider Student in an Organized Health Care Education/Training Program
PROC: 0LBN0ZZ Excision of Right Lower Leg Tendon, Open Approach (ICD-10-PCS; principal; 2018-08-15 07:15)
DX: T81.42XA Infection following a procedure, deep incisional surgical site, initial encounter (principal); L03.115 Cellulitis of right lower limb; E44.1 Mild protein-calorie malnutrition; L97.913 Non-pressure chronic ulcer of unspecified part of right lower leg with necrosis of muscle; I73.9 Peripheral vascular disease, unspecified; E78.5 Hyperlipidemia, unspecified; B96.5 Pseudomonas (aeruginosa) (mallei) (pseudomallei) as the cause of diseases classified elsewhere; B96.89 Other specified bacterial agents as the cause of diseases classified elsewhere; R94.31 Abnormal electrocardiogram [ECG] [EKG]; I87.2 Venous insufficiency (chronic) (peripheral); Z68.22 Body mass index [BMI] 22.0-22.9, adult; Z95.820 Peripheral vascular angioplasty status with implants and grafts; Z86.718 Personal history of other venous thrombosis and embolism; Z79.01 Long term (current) use of anticoagulants; Z89.411 Acquired absence of right great toe; Z87.891 Personal history of nicotine dependence
CPT/HCPCS: 11043; 11046; 36415; 73590; 80048; 80053; 80202; 84484; 85025; 85610; 85652; 85730; 86140; 87015; 87040; 87070; 87075; 87077; 87102; 87116; 87184; 87186; 87205; 87206; 87633; 87640; 93005; 97110; 97162; 97164; 97166; 97168; 97530; 97802; 99406; J7040; J7120; A4216; J2405

== ENCOUNTER 2018-09-03 11:15 | Outpatient (RCR) | payer MEDICARE, MEDICAID, SELFPAY ==
[2018-08-08 01:53] VITALS: BP 144/84; PULSE 82; RESP 18; TEMP 37
[2018-08-13 09:22] VITALS: BP 131/75; PULSE 96; RESP 18; TEMP 36.1
--- NOTE | 2018-08-13 09:46 | WC ---
wound not window pained with drape maceration around wound noted.
--- NOTE | 2018-08-13 11:29 | PCM.WC.PN ---
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 Status: Chronic Current Visit: Yes Code(s): L97.913 - Non-pressure chronic ulcer of unspecified part of right lower leg with necrosis of muscle (2) Infection Status: Acute Current Visit: Yes Code(s): B99.9 - Unspecified infectious disease (3) Edema leg Status: Chronic Current Visit: Yes Code(s): R60.0 - Localized edema (4) Malnutrition Status: Chronic Current Visit: Yes Code(s): E46 - Unspecified protein-calorie malnutrition (5) Tobacco abuse Status: Chronic Current Visit: Yes Code(s): Z72.0 - Tobacco use (6) Bilateral claudication of lower limb Status: Chronic Current Visit: Yes Code(s): I73.9 - Peripheral vascular disease, unspecified Type of Wound Chief Complaint: Leg ulcer right History of Wound: Mr. Sinclair is a 68yo with past medical history of atrial fibrillation, peripheral arterial disease status post left lower extremity stenting and tobacco abuse presents for follow-up of right leg ulcer. He had a reported deep venous thrombosis of the right leg and developed subsequent compartment syndrome previously. He underwent surgical fasciotomy on July 07 at [facility] and has a resultant chronic wound. This subsequently was treated for cellulitis with Keflex which he completed and the infection previously resolved. He has been having a wound VAC changed every couple of days and applied Adaptic. He reports recent onset of night sweats and chills, increased leg pain and odor that has progressed this past week. He is concerned the infection is coming back. He is with his daughter today. His medical records from [facility] was obtained. He denies known redness to the leg. He has continued to avoid smoking activities for over 1 month. He is recently known to the wound healing center and has been providing care for the last week. Progress of Wound: Worsening status including infection - Physical Exam Vital Signs Temp Pulse Resp BP 97 F L 96 18 131/75 H 08/13/18 09:22 08/13/18 09:22 08/13/18 09:22 08/13/18 09:22 General: Alert, Oriented x3, Cooperative HEENT: Atraumatic Extremities: No cyanosis, Capillary Refill Less than 3 Seconds, No Calf Tenderness - Negative Yen and Watts right, Diminished Peripheral Pulses, Edema - Mild right Skin: Ulcer/ Wound - Exposed lateral leg ulcer with peripheral granular base and exposed muscle bellies. There is a foul odor with purulent drainage coming from the distal aspect of the wound. This is progressively worse compared to last week. There is no probe to bone. The skin is indurated and atrophic and taut. There is no hair in the skin is very atrophic. There is no distinct erythema or streaking noted Wound Measurements and Assessment WC - Nurse 1 - General Ulcer Measurement Start: 08/13/18 09:22 Freq: Status: Active Protocol: Activity Type Activity Date Activity User E-Sign Co-Sign Detail Recorded Client Recorded Date Recorded By Document 08/13/18 09:22 [email or web address] [id number] 08/13/18 09:45 [email or web address] 08/13/18 09:22 Wound Center Nurse 1 [Ulcer Assessment] #2 right lower leg -Combined with other wound No -Current Size (cm) - Length 15.4 -Current Size (cm) - Width 5.2 -Current Size (cm) - Depth 1 -Total Square Cm 80.08 -Tunneling No -Undermining/Tunneling No -Circular Undermining No -Exudate Amt Large -Exudate Type Serosanguineous -Wound Margin Distinct, Outline Attached -Granulation Amt Large (67-100%) -Granulation Quality Red -Slough/Fibrin Yes -Necrosis Amt Small (1-33%) -Necrotic Tissue Type Adherent Slough -Structure Exposed Tendon -Texture (Denisa-wound Skin Appearance) Assessed -Moisture (Denisa-wound Skin Appearance Assessed ) Maceration -Color (Denisa-wound Skin Appearance) Erythema -Temperature (Denisa-wound Skin No Abnormality Appearance) (Pt Warm) -Tenderness on Palpation (Denisa-wound No Skin Appearance) -Ulcer Cleansing Wound Cleanser -Foul Odor after Cleansing Yes -Anesthetic Used 4% Lidocaine Solution 08/13/18 09:46 Wound Center by Chrystal Jacobson wound not window pained with drape maceration around wound noted. Initialized on 08/13/18 09:46 - END OF NOTE WC - Nurse 2 - General Ulcer CM Notes Start: 08/13/18 09:22 Freq: Status: Active Protocol: Activity Type Activity Date Activity User E-Sign Co-Sign Detail Recorded Client Recorded Date Recorded By Document 08/13/18 10:01 [email or web address] [id number] 08/13/18 10:07 [email or web address] 08/13/18 10:01 Wound Center Nurse 2 [Procedure/Treatment] -Time 10:02 -Correct Patient Yes -Correct Side, Site, Position Yes -Correct Procedure Yes -Procedure Performed Yes -Type of Procedure Debridement -Clinical Debridement Muscle -Post Debridement Size (cm) - Length 15.5 -Post Debridement Size (cm) - Width 5.2 -Post Debridement Size (cm) - Depth 1.0 -Total Square Cm 80.60 -Wound/Ulcer Outcome Not Healed -Ulcer Cleansing Rinsed/ Irrigated with Saline -Foul Odor after Cleansing Yes -Bleeding Controlled with Pressure -Offloading No -Type of Offloading Surgical Shoe -Treatment Response Procedure Tolerated Well [See Physician Procedure note for Specifics] Pain Scale: 0-10 Numeric [Pain] -Is Patient Pain Free? Yes Musculoskeletal: No Tenderness to Palpation of Joints or Extremities, Muscle Wasting, - - Pain to palpate ulcer Neurological: Sensory exam intact to light touch and pain Psych/Mental Status: Normal Affect, Appropriate Debridement Note Post-Debridement Measurements/Treatment WC - Nurse 2 - General Ulcer CM Notes Start: 08/13/18 09:22 Freq: Status: Active Protocol: Activity Type Activity Date Activity User E-Sign Co-Sign Detail Recorded Client Recorded Date Recorded By Document 08/13/18 10:01 [id number] 08/13/18 10:07 08/13/18 10:01 Wound Center Nurse 2 #2 right lower leg -Time 10:02 -Correct Patient Yes -Correct Side, Site, Position Yes -Correct Procedure Yes -Procedure Performed Yes -Type of Procedure Debridement -Clinical Debridement Muscle -Post Debridement Size (cm) - Length 15.5 -Post Debridement Size (cm) - Width 5.2 -Post Debridement Size (cm) - Depth 1.0 -Total Square Cm 80.60 -Wound/Ulcer Outcome Not Healed -Ulcer Cleansing Rinsed/ Irrigated with Saline -Foul Odor after Cleansing Yes -Bleeding Controlled with Pressure -Offloading No -Type of Offloading Surgical Shoe -Treatment Response Procedure Tolerated Well Pain Scale: 0-10 Numeric Is Patient Pain Free? Yes Wound debrided: lateral leg Laterality: Right Type of Debridement: Excisional debridement Anesthesia Used: 4% Lidocaine Solution Depth: in the subcutaneous layer, to muscle Percentage of wound debrided: 70 - granulation, subcutaneous, 30 - tendon devitalized Instrument Used: #15 blade, Forceps Tissue Removed: fibrous, devitalized subcutaneous and tendon, biofilm, slough Severity: Fat Layer Exposed Amount of bleeding with debridement: Mild Bleeding Controlled with: Pressure Patient tolerated procedure well Assessment/Plan Active Problems (Last Reviewed 08/01/18 @ 11:55 by Nick Hastings MD) Edema leg (Chronic) Malnutrition (Chronic) 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 Infection progression with suspected abscess and infectious myositis. Peripheral vascular disease. Leg edema and rule out venous insufficiency. Malnutrition. Recent tobacco use. Right leg pain worsening status Plan: I reviewed and discussed his case. He has a status changed compared to last week with worsening odor and purulent drainage expressed from the distal wound bed. There is continued necrotic anterior and lateral leg compartment muscle. subcutaneous and tendon necrotic excisional debridement was performed as noted in the clinical panel. A dressing was applied including Betadine soaked with gauze packed between the leg muscle fascial compartments. I am concerned of his night sweats, worsening pain, strong odor, and new purulent drainage. I recommend admission to the hospital for antibiotics and for surgical debridement and drainage. The preoperative indication, planned procedure, benefits, risks, complications, anticipated healing time management were discussed in detail with the patient. He will need to sign surgical consents. She understands stabilization of his infection is required prior to proceeding forward with any advanced wound care products or treatments. To keep pressure off this ulcer by avoiding lying on his right lateral leg. To reduce unnecessary pressure by wearing a light Tubigrip compression garment. To optimize healing by taking nutritional supplementation, [place], a prescription was provided he was advised on proper use. Updated noninvasive vascular studies and venous reflux studies were ordered. I also request previous vascular notes from his other hospital that he initially obtained treatment at and this was received this morning; I will review this. Dr. Yarbrough's intervention was noted including right leg angioplasty and initiation of thrombolysis on July 03, 2018, right leg angioplasty and thrombolytic check performed on July 04, 2018, and right leg fasciotomy and wound VAC placement performed on July 07, 2018. Per chart review he was then continued on Plavix and aspirin. It was suspected that his previous iliac stent occluded and is also noted that he had possible occlusion of his SFA stent and he may need additional future popliteal and tibial artery intervention performed. His transthoracic echocardiography was reviewed from [facility] on July 08, 2018 and it is noted he has an ejection fraction of 60-65%. His systolic function is normal. Direct admission was coordinated with the hospitalist, Dr. Montero, which is greatly appreciated. Upon arrival to hospital I recommend updated right leg x-ray, updated labs including CBC, CMP, ESR, C-reactive protein, EKG. I did obtain a tissue deep wound culture post debridement and irrigation culture today including aerobic, anaerobic, and MRSA PCR; The results are pending. Medical preoperative optimization and DVT prophylaxis is appreciated. I will continue to follow him closely. I answered all his questions.
[2018-08-13 20:24] LABS: M R Staph aureus DNA By PCR Negative (Negative); Probe Check PASS; Specimen Processing Control PASS; Staph aureus DNA By PCR NEGATIVE (Negative)
[2018-08-27 11:24] VITALS: BP 119/66; PULSE 81; RESP 16; TEMP 37.2; BMI 23.0
--- NOTE | 2018-08-27 13:07 | PN.PCM_ITS ---
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 Status: Chronic Current Visit: Yes Code(s): L97.913 - Non-pressure chronic ulcer of unspecified part of right lower leg with necrosis of muscle (2) Infection Status: Chronic Current Visit: Yes Code(s): B99.9 - Unspecified infectious disease (3) Edema leg Status: Deleted Current Visit: Yes Code(s): R60.0 - Localized edema (4) Malnutrition Status: Chronic Current Visit: Yes Code(s): E46 - Unspecified protein- calorie malnutrition (5) Tobacco abuse Status: Chronic Current Visit: Yes Code(s): Z72.0 - Tobacco use (6) Bilateral claudication of lower limb Status: Chronic Current Visit: Yes Code(s): I73.9 - Peripheral vascular disease, unspecified Type of Wound Date of Service: 08/27/18 Chief Complaint: Leg ulcer right History of Wound: Mr. Sinclair is a 68 year old with past medical history of atrial fibrillation, peripheral arterial disease status post left lower extremity stenting and tobacco abuse presents for follow-up of right leg ulcer. He had a reported deep venous thrombosis of the right leg and developed subsequent compartment syndrome previously. He underwent surgical fasciotomy on July 07 at [facility] and has a resultant chronic wound. He had a recent surgical debridement and serial application of advanced wound care product with delayed closure and application of wound VAC on 08/15/2018 and 08/19/2018, respectively. He denies fever, chill, nausea, vomiting, chest pain, shortness of breath. He does have loss of appetite and is not tolerating meals well. He is scheduled to see Dr. Yarbrough next week to confirm stent patency. He is worried he cannot hear the alarm on his wound VAC and he is concerned about this at nighttime. He denies wound VAC leaking. Progress of Wound: Improved - Physical Exam Vital Signs Temp Pulse Resp BP 98.9 F 81 16 119/66 08/27/18 11:24 08/27/18 11:24 08/27/18 11:24 08/27/18 11:24 General: Alert, Oriented x3, Cooperative Extremities: No cyanosis, Capillary Refill Less than 3 Seconds, No Calf Tenderness - Negative Yen and Watts signs right, compartments remain soft to palpate right, Diminished Peripheral Pulses, Edema - Mild Skin: Ulcer/ Wound - No purulence, erythema, streaking, odor, or infection. The advance wound care product remains intact and secured with the sutured Adaptic. There is no peripheral hyperpigmentation. The skin is atrophic with scant hair peripherally. The delayed primary distal closure site is intact with skin edges well coapted and aligned without gapping or necrosis Wound Measurements and Assessment - Nurse 1 - General Ulcer Measurement Start: 08/13/18 09:22 Freq: Status: Active Protocol: Activity Type Activity Date Activity User E-Sign Co-Sign Detail Recorded Client Recorded Date Recorded By Document 08/27/18 11:24 [id number] 08/27/18 11:26 08/27/18 11:24 Wound Center Nurse 1 [Ulcer Assessment] #2 right lower leg -Combined with other wound No -Current Size (cm) - Length 15.0 -Current Size (cm) - Width 2.3 -Current Size (cm) - Depth 0.2 -Total Square Cm 34.50 -Photo Taken Yes -Epithelialization Medium 34-66% -Tunneling No -Undermining/Tunneling No -Circular Undermining No -Exudate Amt Small -Exudate Type Serosanguineous -Wound Margin Flat & Intact -Granulation Amt Medium (34-66%) -Granulation Quality Red -Slough/Fibrin Yes -Necrosis Amt Medium (34-66%) -Necrotic Tissue Type Adherent Slough -Structure Exposed N/A -Texture (Denisa-wound Skin Appearance) Assessed Localized Edema -Moisture (Denisa-wound Skin Appearance Assessed ) Dry/Scaly -Color (Denisa-wound Skin Appearance) Assessed -Temperature (Denisa-wound Skin No Abnormality Appearance) (Pt Warm) -Tenderness on Palpation (Denisa-wound No Skin Appearance) -Ulcer Cleansing Wound Cleanser -Foul Odor after Cleansing No -Anesthetic Used 4% Lidocaine Solution [Edema Assessment] -Lower Limb Edema Present Yes -Right Calf (cm) 31.6 -Right Ankle (cm) 21.8 - Nurse 2 - General Ulcer CM Notes Start: 08/13/18 09:22 Freq: Status: Active Protocol: Activity Type Activity Date Activity User E-Sign Co-Sign Detail Recorded Client Recorded Date Recorded By Document 08/27/18 11:51 AN [id number] 08/27/18 11:52 AN 08/27/18 11:51 Wound Center Nurse 2 [Procedure/Treatment] #2 right lower leg -Time 11:51 -Correct Patient Yes -Correct Side, Site, Position Yes -Correct Procedure Yes -Procedure Performed No -Ulcer Cleansing Rinsed/ Irrigated with Saline -Foul Odor after Cleansing No -Bioengineered Tissue No [See Physician Procedure note for Specifics] Pain Scale: 0-10 Numeric [Pain] -Is Patient Pain Free? Yes Musculoskeletal: No Tenderness to Palpation of Joints or Extremities, Muscle Wasting Neurological: Sensory exam intact to light touch and pain Psych/Mental Status: Normal Affect, Appropriate Debridement Note Post-Debridement Measurements/Treatment WC - Nurse 2 - General Ulcer CM Notes Start: 08/13/18 09:22 Freq: Status: Active Protocol: Activity Type Activity Date Activity User E-Sign Co-Sign Detail Recorded Client Recorded Date Recorded By Document 08/13/18 10:01 [id number] 08/13/18 10:07 Document 08/27/18 11:51 AN [id number] 08/27/18 11:52 AN 08/13/18 08/27/18 10:01 11:51 Wound Center Nurse 2 #2 right lower leg -Time 10:02 11:51 -Correct Patient Yes Yes -Correct Side, Site, Position Yes Yes -Correct Procedure Yes Yes -Procedure Performed Yes No -Type of Procedure Debridement -Clinical Debridement Muscle -Post Debridement Size (cm) - Length 15.5 -Post Debridement Size (cm) - Width 5.2 -Post Debridement Size (cm) - Depth 1.0 -Total Square Cm 80.60 -Wound/Ulcer Outcome Not Healed -Ulcer Cleansing Rinsed/ Rinsed/ Irrigated with Irrigated with Saline Saline -Foul Odor after Cleansing Yes No -Bioengineered Tissue No -Bleeding Controlled with Pressure -Offloading No -Type of Offloading Surgical Shoe -Treatment Response Procedure Tolerated Well Pain Scale: 0-10 Numeric Is Patient Pain Free? 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 Peripheral vascular disease. Leg edema and rule out venous insufficiency. Malnutrition. Recent tobacco use. Right leg pain worsening status Plan: I reviewed and discussed his case. Debridement was not performed today because the amnio fill and epi cord applied surgically continue to incorporate in. The wound veil of Adaptic is still sutured in place. A wound VAC was applied and this will stay on 125mmHg continuous. He was advised to complete his oral antibiotic course per infectious disease recommendations. To continue to eat and take meal supplements as tolerated; he understands this is important for healing potential. To keep pressure off this ulcer by avoiding lying on his right lateral leg. To reduce unnecessary pressure by wearing a light Tubigrip compression garment. To optimize healing by taking nutritional supplementation, [place]. Updated noninvasive vascular studies and venous reflux studies were initially ordered. Then, Dr. Yarbrough's intervention was noted including right leg angioplasty and initiation of thrombolysis on July 03, 2018, right leg angioplasty and thrombolytic check performed on July 04, 2018, and right leg fasciotomy and wound VAC placement performed on July 07, 2018. At this time, the noninvasive vascular studies are not recommended or needed given he has had a previous stent placed. It is noted he will likely have a Doppler performed when he follows up with his vascular surgeon within the next week. His noninvas abimael studies are canceled at this time and additional vein or artery work-up per Dr. Yrabrough's input is recommended. Per chart review he was then continued on Plavix, xarelto, and aspirin. To continue at this time. To return to the wound healing center 1 week or call sooner if is any questions or concerns. This is a staged treatment plan and he is doing well so far. Anticipated healing time management was discussed in detail.
[2018-09-03 12:07] VITALS: BMI 23.0
--- NOTE | 2018-09-03 15:41 | PCM.WC.PN ---
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 Status: Chronic Current Visit: Yes Code(s): L97.913 - Non-pressure chronic ulcer of unspecified part of right lower leg with necrosis of muscle (2) Infection Status: Resolved Current Visit: Yes Code(s): B99.9 - Unspecified infectious disease (3) Malnutrition Status: Chronic Current Visit: Yes Code(s): E46 - Unspecified protein-calorie malnutrition (4) Tobacco abuse Status: Chronic Current Visit: Yes Code(s): Z72.0 - Tobacco use (5) Bilateral claudication of lower limb Status: Chronic Current Visit: Yes Code(s): I73.9 - Peripheral vascular disease, unspecified Type of Wound Date of Service: 09/03/18 Chief Complaint: Leg ulcer right History of Wound: Mr. Sinclair is a 68 year old with past medical history of atrial fibrillation, peripheral arterial disease status post left lower extremity stenting and tobacco abuse presents for follow-up of right leg ulcer. He had a reported deep venous thrombosis of the right leg and developed subsequent compartment syndrome previously. He underwent surgical fasciotomy on July 07 at [facility] and has a resultant chronic wound. He had a recent surgical debridement and serial application of advanced wound care product with delayed closure and application of wound VAC on 08/15/2018 and 08/19/2018, respectively. He denies fever, chill, nausea, vomiting, chest pain, shortness of breath. His loss of appetite has resolved and he has been eating according to normal regimen. He is kept his wound VAC in place as advised. Progress of Wound: Improved - Physical Exam Vital Signs Temp Pulse Resp BP 98.9 F 81 16 119/66 08/27/18 11:24 08/27/18 11:24 08/27/18 11:24 08/27/18 11:24 General: Alert, Oriented x3, Cooperative HEENT: Atraumatic Extremities: Capillary Refill Less than 3 Seconds, Diminished Peripheral Pulses, Edema - Mild Skin: Ulcer/ Wound - No purulence, erythema, streaking, odor, or acute signs of infection. There is minimal exposed healthy tendon. The delayed partial primary closure site is intact with wound edges reapproximated and coapting well. There is no gapping or necrosis. There is no streaking., - - The peripheral skin is hairless and atrophic Wound Measurements and Assessment WC - Nurse 1 - General Ulcer Measurement Start: 08/13/18 09:22 Freq: Status: Active Protocol: Activity Type Activity Date Activity User E-Sign Co-Sign Detail Recorded Client Recorded Date Recorded By Document 09/03/18 12:07 DV [id number] 09/03/18 12:13 DV 09/03/18 12:07 Wound Center Nurse 1 [Ulcer Assessment] #2 right lower leg -Combined with other wound No -Current Size (cm) - Length 15.0 -Current Size (cm) - Width 3.0 -Current Size (cm) - Depth 0.3 -Total Square Cm 45.00 -Photo Taken No -Epithelialization None Present -Tunneling No -Undermining/Tunneling No -Circular Undermining No -Exudate Amt Medium -Exudate Type Serosanguineous -Wound Margin Well Defined, Not Attached -Granulation Amt None Present (0 %) -Granulation Quality N/A -Necrotic Tissue Type Adherent Slough -Structure Exposed N/A -Texture (Denisa-wound Skin Appearance) Assessed Scarring -Moisture (Denisa-wound Skin Appearance Assessed ) Not Assessed -Color (Denisa-wound Skin Appearance) Assessed Not Assessed -Temperature (Denisa-wound Skin No Abnormality Appearance) (Pt Warm) -Tenderness on Palpation (Denisa-wound No Skin Appearance) -Ulcer Cleansing Rinsed/ Irrigated with Saline -Foul Odor after Cleansing No -Anesthetic Used 4% Lidocaine Solution [Edema Assessment] -Lower Limb Edema Present No -Right Calf (cm) 31.5 -Right Ankle (cm) 20.6 - Nurse 2 - General Ulcer CM Notes Start: 08/13/18 09:22 Freq: Status: Active Protocol: Activity Type Activity Date Activity User E-Sign Co-Sign Detail Recorded Client Recorded Date Recorded By Document 09/03/18 12:16 AN [id number] 09/03/18 12:28 AN 09/03/18 12:16 Wound Center Nurse 2 [Procedure/Treatment] #2 right lower leg -Time 12:18 -Correct Patient Yes -Correct Side, Site, Position Yes -Correct Procedure Yes -Procedure Performed Yes -Type of Procedure Debridement -Clinical Debridement Subcutaneous -Post Debridement Size (cm) - Length 15 -Post Debridement Size (cm) - Width 3.0 -Post Debridement Size (cm) - Depth 0.3 -Total Square Cm 45.0 -Wound/Ulcer Outcome Not Healed -Ulcer Cleansing Rinsed/ Irrigated with Saline -Foul Odor after Cleansing No -Bleeding Controlled with Pressure -Type of Offloading Surgical Shoe -Treatment Response Procedure Tolerated Well [See Physician Procedure note for Specifics] Pain Scale: 0-10 Numeric [Pain] -Is Patient Pain Free? Yes Musculoskeletal: No Tenderness to Palpation of Joints or Extremities, Muscle Wasting Neurological: Sensory exam intact to light touch and pain Psych/Mental Status: Normal Affect, Appropriate Debridement Note Post-Debridement Measurements/Treatment WC - Nurse 2 - General Ulcer CM Notes Start: 08/13/18 09:22 Freq: Status: Active Protocol: Activity Type Activity Date Activity User E-Sign Co-Sign Detail Recorded Client Recorded Date Recorded By Document 08/13/18 10:01 [id number] 08/13/18 10:07 Document 08/27/18 11:51 AN [id number] 08/27/18 11:52 AN Document 09/03/18 12:16 AN [id number] 09/03/18 12:28 AN 08/13/18 08/27/18 09/03/18 10:01 11:51 12:16 Wound Center Nurse 2 #2 right lower leg -Time 10:02 11:51 12:18 -Correct Patient Yes Yes Yes -Correct Side, Site, Position Yes Yes Yes -Correct Procedure Yes Yes Yes -Procedure Performed Yes No Yes -Type of Procedure Debridement Debridement -Clinical Debridement Muscle Subcutaneous -Post Debridement Size (cm) - Length 15.5 15 -Post Debridement Size (cm) - Width 5.2 3.0 -Post Debridement Size (cm) - Depth 1.0 0.3 -Total Square Cm 80.60 45.0 -Wound/Ulcer Outcome Not Healed Not Healed -Ulcer Cleansing Rinsed/ Rinsed/ Rinsed/ Irrigated with Irrigated with Irrigated with Saline Saline Saline -Foul Odor after Cleansing Yes No No -Bioengineered Tissue No -Bleeding Controlled with Pressure Pressure -Offloading No -Type of Offloading Surgical Shoe Surgical Shoe -Treatment Response Procedure Procedure Tolerated Well Tolerated Well Pain Scale: 0-10 Numeric Is Patient Pain Free? 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 Peripheral vascular disease. Leg edema and rule out venous insufficiency. Malnutrition. Recent tobacco use. Right leg pain worsening status Plan: I reviewed and discussed his case. Debridement was performed today and Adaptic was applied. A wound VAC was applied and this will stay on 125mmHg continuous. To change every 3 days. I recommend application of advanced wound care product, epi cord. Prior authorization will be initiated. The indications, planned procedure, possible benefits, risks, anticipated healing time and management were discussed. He is amenable to proceed. This is medically necessary for limb salvage. He is at high risk for continual infection, delayed healing, and amputations. he was advised to complete his oral antibiotic course per infectious disease recommendations. To continue to eat and take meal supplements as tolerated; he understands this is important for healing potential. To keep pressure off this ulcer by avoiding lying on his right lateral leg. To reduce unnecessary pressure by wearing a light Tubigrip compression garment. To optimize healing by taking nutritional supplementation, [place]. Updated noninvasive vascular studies and venous reflux studies were initially ordered. Then, Dr. Yarbrough's intervention was noted including right leg angioplasty and initiation of thrombolysis on July 03, 2018, right leg angioplasty and thrombolytic check performed on July 04, 2018, and right leg fasciotomy and wound VAC placement performed on July 07, 2018. At this time, the noninvasive vascular studies are not recommended or needed given he has had a previous stent placed. It is noted he will likely have a Doppler performed when he follows up with his vascular surgeon within the next week. His noninvasive studies are canceled at this time and additional vein or artery work-up per Dr. Yarbrough's input is recommended. Per chart review he was then continued on Plavix, xarelto, and longer aspirin. To continue at this time. Self reported intermittent stool bleeding is noted and I advised he follow-up with his primary care physician and vascular surgeon right away. He understands the risks associated with this. To return to the wound healing center 1 week or call sooner if is any questions or concerns. This is a staged treatment plan and he is doing well so far. Anticipated healing time management was discussed in detail.
--- NOTE | 2018-09-03 15:46 | PN.PCM_ITS ---
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 Status: Chronic Current Visit: Yes Code(s): L97.913 - Non-pressure chronic ulcer of unspecified part of right lower leg with necrosis of muscle (2) Infection Status: Resolved Current Visit: Yes Code(s): B99.9 - Unspecified infectious disease (3) Malnutrition Status: Chronic Current Visit: Yes Code(s): E46 - Unspecified protein- calorie malnutrition (4) Tobacco abuse Status: Chronic Current Visit: Yes Code(s): Z72.0 - Tobacco use (5) Bilateral claudication of lower limb Status: Chronic Current Visit: Yes Code(s): I73.9 - Peripheral vascular disease, unspecified Type of Wound Date of Service: 09/03/18 Chief Complaint: Leg ulcer right History of Wound: Mr. Sinclair is a 68 year old with past medical history of atrial fibrillation, peripheral arterial disease status post left lower extremity stenting and tobacco abuse presents for follow-up of right leg ulcer. He had a reported deep venous thrombosis of the right leg and developed subsequent compartment syndrome previously. He underwent surgical fasciotomy on July 07 at [facility] and has a resultant chronic wound. He had a recent surgical debridement and serial application of advanced wound care product with delayed closure and application of wound VAC on 08/15/2018 and 08/19/2018, respectively. He denies fever, chill, nausea, vomiting, chest pain, shortness of breath. His loss of appetite has resolved and he has been eating according to normal regimen. He is kept his wound VAC in place as advised. Progress of Wound: Improved - Physical Exam Vital Signs Temp Pulse Resp BP 98.9 F 81 16 119/66 08/27/18 11:24 08/27/18 11:24 08/27/18 11:24 08/27/18 11:24 General: Alert, Oriented x3, Cooperative HEENT: Atraumatic Extremities: Capillary Refill Less than 3 Seconds, Diminished Peripheral Pulses, Edema - Mild Skin: Ulcer/ Wound - No purulence, erythema, streaking, odor, or acute signs of infection. There is minimal exposed healthy tendon. The delayed partial primary closure site is intact with wound edges reapproximated and coapting well. There is no gapping or necrosis. There is no streaking., - - The peripheral skin is hairless and atrophic Wound Measurements and Assessment WC - Nurse 1 - General Ulcer Measurement Start: 08/13/18 09:22 Freq: Status: Active Protocol: Activity Type Activity Date Activity User E-Sign Co-Sign Detail Recorded Client Recorded Date Recorded By Document 09/03/18 12:07 DV [id number] 09/03/18 12:13 DV 09/03/18 12:07 Wound Center Nurse 1 [Ulcer Assessment] #2 right lower leg -Combined with other wound No -Current Size (cm) - Length 15.0 -Current Size (cm) - Width 3.0 -Current Size (cm) - Depth 0.3 -Total Square Cm 45.00 -Photo Taken No -Epithelialization None Present -Tunneling No -Undermining/Tunneling No -Circular Undermining No -Exudate Amt Medium -Exudate Type Serosanguineous -Wound Margin Well Defined, Not Attached -Granulation Amt None Present (0 %) -Granulation Quality N/A -Necrotic Tissue Type Adherent Slough -Structure Exposed N/A -Texture (Denisa-wound Skin Appearance) Assessed Scarring -Moisture (Denisa-wound Skin Appearance Assessed ) Not Assessed -Color (Denisa-wound Skin Appearance) Assessed Not Assessed -Temperature (Denisa-wound Skin No Abnormality Appearance) (Pt Warm) -Tenderness on Palpation (Denisa-wound No Skin Appearance) -Ulcer Cleansing Rinsed/ Irrigated with Saline -Foul Odor after Cleansing No -Anesthetic Used 4% Lidocaine Solution [Edema Assessment] -Lower Limb Edema Present No -Right Calf (cm) 31.5 -Right Ankle (cm) 20.6 - Nurse 2 - General Ulcer CM Notes Start: 08/13/18 09:22 Freq: Status: Active Protocol: Activity Type Activity Date Activity User E-Sign Co-Sign Detail Recorded Client Recorded Date Recorded By Document 09/03/18 12:16 AN [id number] 09/03/18 12:28 AN 09/03/18 12:16 Wound Center Nurse 2 [Procedure/Treatment] #2 right lower leg -Time 12:18 -Correct Patient Yes -Correct Side, Site, Position Yes -Correct Procedure Yes -Procedure Performed Yes -Type of Procedure Debridement -Clinical Debridement Subcutaneous -Post Debridement Size (cm) - Length 15 -Post Debridement Size (cm) - Width 3.0 -Post Debridement Size (cm) - Depth 0.3 -Total Square Cm 45.0 -Wound/Ulcer Outcome Not Healed -Ulcer Cleansing Rinsed/ Irrigated with Saline -Foul Odor after Cleansing No -Bleeding Controlled with Pressure -Type of Offloading Surgical Shoe -Treatment Response Procedure Tolerated Well [See Physician Procedure note for Specifics] Pain Scale: 0-10 Numeric [Pain] -Is Patient Pain Free? Yes Musculoskeletal: No Tenderness to Palpation of Joints or Extremities, Muscle Wasting Neurological: Sensory exam intact to light touch and pain Psych/Mental Status: Normal Affect, Appropriate Debridement Note Post-Debridement Measurements/Treatment WC - Nurse 2 - General Ulcer CM Notes Start: 08/13/18 09:22 Freq: Status: Active Protocol: Activity Type Activity Date Activity User E-Sign Co-Sign Detail Recorded Client Recorded Date Recorded By Document 08/13/18 10:01 [id number] 08/13/18 10:07 Document 08/27/18 11:51 AN [id number] 08/27/18 11:52 AN Document 09/03/18 12:16 AN [id number] 09/03/18 12:28 AN 08/13/18 08/27/18 09/03/18 10:01 11:51 12:16 Wound Center Nurse 2 #2 right lower leg -Time 10:02 11:51 12:18 -Correct Patient Yes Yes Yes -Correct Side, Site, Position Yes Yes Yes -Correct Procedure Yes Yes Yes -Procedure Performed Yes No Yes -Type of Procedure Debridement Debridement -Clinical Debridement Muscle Subcutaneous -Post Debridement Size (cm) - Length 15.5 15 -Post Debridement Size (cm) - Width 5.2 3.0 -Post Debridement Size (cm) - Depth 1.0 0.3 -Total Square Cm 80.60 45.0 -Wound/Ulcer Outcome Not Healed Not Healed -Ulcer Cleansing Rinsed/ Rinsed/ Rinsed/ Irrigated with Irrigated with Irrigated with Saline Saline Saline -Foul Odor after Cleansing Yes No No -Bioengineered Tissue No -Bleeding Controlled with Pressure Pressure -Offloading No -Type of Offloading Surgical Shoe Surgical Shoe -Treatment Response Procedure Procedure Tolerated Well Tolerated Well Pain Scale: 0-10 Numeric Is Patient Pain Free? 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 Peripheral vascular disease. Leg edema and rule out venous insufficiency. Malnutrition. Recent tobacco use. Right leg pain worsening status Plan: I reviewed and discussed his case. Debridement was performed today and Adaptic was applied. A wound VAC was applied and this will stay on 125mmHg continuous. To change every 3 days. I recommend application of advanced wound care product, epi cord. Prior authorization will be initiated. The indications, planned procedure, possible benefits, risks, anticipated healing time and management were discussed. He is amenable to proceed. This is medically necessary for limb salvage. He is at high risk for continual infection, delayed healing, and amputations. he was advised to complete his oral antibiotic course per infectious disease recommendations. To continue to eat and take meal supplements as tolerated; he understands this is important for healing potential. To keep pressure off this ulcer by avoiding lying on his right lateral leg. To reduce unnecessary pressure by wearing a light Tubigrip compression garment. To optimize healing by taking nutritional supplementation, [place]. Updated noninvasive vascular studies and venous reflux studies were initially ordered. Then, Dr. Yarbrough's intervention was noted including right leg angioplasty and initiation of thrombolysis on July 03, 2018, right leg angioplasty and thrombolytic check performed on July 04, 2018, and right leg fasciotomy and wound VAC placement performed on July 07, 2018. At this time, the noninvasive vascular studies are not recommended or needed given he has had a previous stent placed. It is noted he will likely have a Doppler performed when he follows up with his vascular surgeon within the next week. His non invasive studies are canceled at this time and additional vein or artery work-up per Dr. Yarbrough's input is recommended. Per chart review he was then continued on Plavix, xarelto, and longer aspirin. To continue at this time. Self reported intermittent stool bleeding is noted and I advised he follow-up with his primary care physician and vascular surgeon right away. He understands the risks associated with this. To return to the wound healing center 1 week or call sooner if is any questions or concerns. This is a staged treatment plan and he is doing well so far. Anticipated healing time management was discussed in detail.
== END 2018-09-07 23:59 ==
LOC: WC 11:15
PROVIDERS: Family Provider Internal Medicine; PCP Internal Medicine; Visit Provider Podiatrist
DX: I73.9 Peripheral vascular disease, unspecified (principal); R60.0 Localized edema; L97.812 Non-pressure chronic ulcer of other part of right lower leg with fat layer exposed; Z72.0 Tobacco use; I48.91 Unspecified atrial fibrillation; Z86.718 Personal history of other venous thrombosis and embolism; Z79.01 Long term (current) use of anticoagulants; Z79.02 Long term (current) use of antithrombotics/antiplatelets
CPT/HCPCS: 11042; 11043; 11046; 87070; 87075; 87077; 87186; 87205; 87640; 97605; 99213; G0463

== ENCOUNTER 2018-09-05 19:49 | Emergency (ER) | payer SELFPAY ==
[2018-09-05 19:49] VITALS: BMI 22.0
[2018-09-05 19:50] VITALS: BP 126/70; PULSE 80; RESP 16; TEMP 36.9; O2SAT 98; BMI 22.4
== END 2018-09-05 20:56 | disposition left against medical advice (07) ==
LOC: ED 20:44
PROVIDERS: Emergency Provider Emergency Medicine; Family Provider Internal Medicine; PCP Internal Medicine
DX: R69 Illness, unspecified (principal); Z53.21 Procedure and treatment not carried out due to patient leaving prior to being seen by health care provider

== ENCOUNTER → 2018-09-08 12:22 | Outpatient (CLI) | payer MEDICARE, MEDICAID, SELFPAY ==
[2018-09-08 12:22] VITALS: BMI 22.4
[2018-09-08 15:23] LABS: Amphetamine Urine VISTA NEGATIVE (<1000 ng/mL); Barbiturate Urine VISTA NEGATIVE (< 200 ng/mL); Benzodiazepine Urine VISTA NEGATIVE (< 200 ng/mL); Cocaine Urine VISTA NEGATIVE (< 300 ng/mL); Ecstacy Urine VISTA NEGATIVE (< 500 ng/mL); Methadone Urine VISTA NEGATIVE (< 300 ng/mL); PCP Urine VISTA NEGATIVE (< 25 ng/mL); THC Urine VISTA NEGATIVE (< 50 ng/mL); Vista UDS pH Range 5
== END ==
PROVIDERS: Family Provider Internal Medicine; PCP Internal Medicine; Referring Provider Anesthesiology Pain Medicine; Visit Provider Anesthesiology Pain Medicine
DX: F11.20 Opioid dependence, uncomplicated (principal)
CPT/HCPCS: 80307

== ENCOUNTER → 2018-09-29 13:02 | Outpatient (CLI) | payer MEDICARE, MEDICAID, SELFPAY ==
[2018-09-24 13:39] VITALS: BMI 22.4
--- NOTE | 2018-09-29 13:06 | ART_ITS ---
Reason For Study: Leg Ulcer Procedure A bilateral lower extremity continuous wave Doppler with analog waveform analysis and ankle brachial indexes. Left Segmental Pressures Left brachial= 123mmHg. Left posterior tibial artery = 86mmHg. Left dorsalis pedis artery = 68mmHg. The left dorsalis pedis waveforms are monophasic. The left posterior tibial artery waveforms are monophasic. Right Segmental Pressures Right brachial= 126mmHg. The right dorsalis pedis waveforms are biphasic. The right posterior tibial artery waveforms are triphasic. Indices Unable to obtain ABIs due to wound vac on right leg. The left ankle brachial index by the dorsalis pedis is 0.54. The left ankle brachial index by the posterior tibial artery is 0.68. Interpretation Summary 1. right leg with near triphasic waveform but unable to get CHANDLER with wound vac. 2. Left leg moderate stenosis and chandler 0.68. Ordering Physician: Scot Yarbrough Referring Physician: Cristopher Heart Performed By: Thelma Alfonso RVT
--- NOTE | 2018-09-29 13:07 | ADUL_ITS ---
Reason For Study: Leg ulcer Right Velocities Ext. Iliac Artery, dist = 160.8 cm./sec. Common Femoral Artery, mid = 79 cm./sec. Supf Femoral Artery, prox = 114.6 cm./sec. SFA Stent Prox = 84.5 cm/sec SFA Stent Mid = 126.4 cm/sec SFA Stent Distal =54.4 cm/sec. Supf Femoral Artery, mid = 50.7 cm./sec. Supf Femoral Artery, dist. = 130.2 cm./sec. Profunda Femoral Artery = 158.6 cm./sec. Popliteal Artery, prox. = 75.3 cm./sec. Popliteal Artery, mid = 69.8 cm./sec. Popliteal Artery, dist = 50.8 cm./sec. Post. Tibial Artery, prox = 76.4 cm./sec. Post. Tibial Artery, mid = 74 cm./sec. Post. Tibial Artery, dist = 85.1 cm./sec. Peroneal Artery, prox = 75.2 cm./sec. Peroneal Artery, mid = 23.8 cm./sec. Peroneal Artery,dist = 18.5 cm./sec. Anterior tibial artery not visualized due to wound vac. Procedure Exam performed in department. Interpretation Summary 1. right leg with no significant stenosis. Ordering Physician: Scot Yarbrough Referring Physician: Cristopher Heart Performed By: Thelma Alfonso RVT
== END ==
PROVIDERS: Family Provider Internal Medicine; PCP Internal Medicine; Referring Provider Surgery Vascular Surgery; Visit Provider Surgery Vascular Surgery
DX: I70.235 Atherosclerosis of native arteries of right leg with ulceration of other part of foot (principal)
CPT/HCPCS: 93922; 93926

== ENCOUNTER 2018-10-01 10:45 | Outpatient (RCR) | payer MEDICARE, MEDICAID, SELFPAY ==
[2018-09-08 01:26] VITALS: BP 119/66; PULSE 81; RESP 16; TEMP 37.2
[2018-09-08 12:22] VITALS: BMI 22.4
[2018-09-10 10:57] VITALS: BP 136/91; PULSE 81; RESP 18; TEMP 36.7; BMI 22.4
--- NOTE | 2018-09-10 14:19 | PN.PCM_ITS ---
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 Status: Chronic Current Visit: Yes Code(s): L97.913 - Non-pressure chronic ulcer of unspecified part of right lower leg with necrosis of muscle (2) Other specified peripheral vascular diseases Status: Chronic Current Visit: Yes Code(s): I73.89 - Other specified peripheral vascular diseases (3) Delayed wound healing Status: Acute Current Visit: Yes Code(s): T14.8XXD - Other injury of unspecified body region, subsequent encounter (4) Malnutrition Status: Chronic Current Visit: Yes Code(s): E46 - Unspecified protein- calorie malnutrition Type of Wound Date of Service: 09/10/18 Chief Complaint: Leg ulcer right History of Wound: Mr. Sinclair is a 68 year old with past medical history of atrial fibrillation, peripheral arterial disease status post left lower extremity stenting and tobacco abuse presents for follow-up of right leg ulcer. He had a reported deep venous thrombosis of the right leg and developed subsequent compartment syndrome previously. He underwent surgical fasciotomy on July 07 at [facility] and has a resultant chronic wound. He had a recent surgical debridement and serial application of advanced wound care product with delayed closure and application of wound VAC on 08/15/2018 and 08/19/2018, respectively. Essentially he has had a chronic ulcer with exposed necrotic muscle since the end of June 2018. He denies fever, chill, nausea, vomiting, chest pain, shortness of breath. He is kept his wound VAC in place as advised. This was removed one time last week due to reported leaking. Home health is helping with this. Progress of Wound: Improved - Physical Exam Vital Signs Temp Pulse Resp BP 98.0 F 81 18 136/91 H 09/10/18 10:57 09/10/18 10:57 09/10/18 10:57 09/10/18 10:57 General: Alert, Oriented x3, Cooperative HEENT: Atraumatic Extremities: No cyanosis, Capillary Refill Less than 3 Seconds, No Calf Tenderness - Negative Yen and Watts sign right, Diminished Peripheral Pulses, Edema Skin: Ulcer/ Wound - No purulence, erythema, streaking, no odor, no acute signs of infection. The distal delayed primary closure site remains intact and well coapted without gapping or necrosis. There is progressive proximal granulation tissue noted and central anterior aspect tendon is exposed; the tendon is healthy white and shiny. There is no liquefied tissue, odor, or intratendinous edema. The peripheral skin is hairless and atrophic Wound Measurements and Assessment - Nurse 1 - General Ulcer Measurement Start: 09/10/18 10:57 Freq: Status: Active Protocol: Activity Type Activity Date Activity User E-Sign Co-Sign Detail Recorded Client Recorded Date Recorded By Document 09/10/18 10:57 STEPHANIE [id number] 09/10/18 11:19 DV 09/10/18 10:57 Wound Center Nurse 1 [Ulcer Assessment] #2 right lower leg -Combined with other wound No -Current Size (cm) - Length 15.5 -Current Size (cm) - Width 2.3 -Current Size (cm) - Depth 0.2 -Total Square Cm 35.65 -Photo Taken No -Epithelialization Medium 34-66% -Tunneling No -Undermining/Tunneling No -Circular Undermining No -Wound Margin Thickened -Granulation Amt Medium (34-66%) -Granulation Quality Red -Slough/Fibrin Yes -Necrosis Amt Large (67-100%) -Necrotic Tissue Type Adherent Slough -Structure Exposed Tendon -Texture (Denisa-wound Skin Appearance) Assessed Scarring -Moisture (Denisa-wound Skin Appearance Assessed ) Weeping -Color (Denisa-wound Skin Appearance) Assessed Erythema -Temperature (Denisa-wound Skin No Abnormality Appearance) (Pt Warm) -Ulcer Cleansing soao -Foul Odor after Cleansing No -Anesthetic Used 4% Lidocaine Solution - Nurse 2 - General Ulcer CM Notes Start: 09/10/18 10:57 Freq: Status: Active Protocol: Activity Type Activity Date Activity User E-Sign Co-Sign Detail Recorded Client Recorded Date Recorded By Document 09/10/18 11:55 [id number] 09/10/18 12:14 09/10/18 11:55 Wound Center Nurse 2 [Procedure/Treatment] -Time 11:55 -Correct Patient Yes -Correct Side, Site, Position Yes -Correct Procedure Yes -Procedure Performed Yes -Type of Procedure Debridement -Clinical Debridement Subcutaneous -Post Debridement Size (cm) - Length 15.5 -Post Debridement Size (cm) - Width 2.4 -Post Debridement Size (cm) - Depth 0.2 -Total Square Cm 37.20 -Wound/Ulcer Outcome Not Healed -Ulcer Cleansing Rinsed/ Irrigated with Saline -Bioengineered Tissue No -Bleeding Controlled with Pressure -Offloading No -Treatment Response Procedure Tolerated Well [See Physician Procedure note for Specifics] Pain Scale: 0-10 Numeric [Pain] -Is Patient Pain Free? Yes Musculoskeletal: No Tenderness to Palpation of Joints or Extremities, Muscle Wasting, - - Minimal discomfort with ulcer manipulation. The compartments remain soft to palpate to the right lower extremity. He has weakness with dorsiflexion eversion and inversion right lower extremity. He has decreased ankle joint dorsiflexion passively noted as well Neurological: Sensory exam intact to light touch and pain Psych/Mental Status: Normal Affect, Appropriate Debridement Note Post-Debridement Measurements/Treatment WC - Nurse 2 - General Ulcer CM Notes Start: 09/10/18 10:57 Freq: Status: Active Protocol: Activity Type Activity Date Activity User E-Sign Co-Sign Detail Recorded Client Recorded Date Recorded By Document 09/10/18 11:55 BLANKA [id number] 09/10/18 12:14 BLANKA 09/10/18 11:55 Wound Center Nurse 2 #2 right lower leg -Time 11:55 -Correct Patient Yes -Correct Side, Site, Position Yes -Correct Procedure Yes -Procedure Performed Yes -Type of Procedure Debridement -Clinical Debridement Subcutaneous -Post Debridement Size (cm) - Length 15.5 -Post Debridement Size (cm) - Width 2.4 -Post Debridement Size (cm) - Depth 0.2 -Total Square Cm 37.20 -Wound/Ulcer Outcome Not Healed -Ulcer Cleansing Rinsed/ Irrigated with Saline -Bioengineered Tissue No -Bleeding Controlled with Pressure -Offloading No -Treatment Response Procedure Tolerated Well Pain Scale: 0-10 Numeric Is Patient Pain Free? Yes Wound debrided: leg Laterality: Right Type of Debridement: Excisional debridement Anesthesia Used: 5% Lidocaine Gel Depth: in the subcutaneous layer Percentage of wound debrided: 100 Instrument Used: #15 blade Tissue Removed: fibrous, devitalized subcutaneous, biofilm, slough Severity: Fat Layer Exposed Amount of bleeding with debridement: Mild Bleeding Controlled with: Pressure Patient tolerated procedure well Assessment/Plan Active Problems (Last Reviewed 08/01/18 @ 11:55 by Nick Hastings MD) Other specified peripheral vascular diseases (Chronic) Delayed wound healing (Acute) Malnutrition (Chronic) 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 This is a chronic ulcer with an onset of June 2018. Peripheral vascular disease. Leg edema and rule out venous insufficiency. Malnutrition. Recent tobacco use Plan: I reviewed and discussed his case. Debridement was performed today and Park with overlying Adaptic was applied. A wound VAC was applied and this will stay on 125mmHg continuous. To change every 3 days. I recommend application of advanced wound care product, epi cord. Prior authorization will be initiated. The indications, planned procedure, possible benefits, risks, anticipated healing time and management were discussed. He is amenable to proceed. This is medically necessary for limb salvage. He is at high risk for continual infection, delayed healing, and amputations. he was advised to complete his oral antibiotic course per infectious disease recommendations. To continue to eat and take meal supplements as tolerated; he understands this is important for healing potential. To keep pressure off this ulcer by avoiding lying on his right lateral leg. To reduce unnecessary pressure by wearing a light Tubigrip compression garment. To optimize healing by taking nutritional supplementation, [place]. Updated noninvasive vascular studies and venous reflux studies were initially ordered. Then, Dr. Yarbrough's intervention was noted including right leg angioplasty and initiation of thrombolysis on July 03, 2018, right leg angioplasty and thrombolytic check performed on July 04, 2018, and right leg fasciotomy and wound VAC placement performed on July 07, 2018. At this time, the noninvasive vascular studies are not recommended or needed given he has had a previous stent placed. It is noted he will likely have a Doppler performed when he follows up with his vascular surgeon within the next week. His noninvasive studies are canceled at this time and additional vein or artery work-up per Dr. Yarbrough's input is recommended. Additionally, the right lower extremity was splinted in a relaxed neutral position as tolerated with a well-padded posterior mold. The purpose of this devices to prevent ankle motion and tendon gliding in the deep wound bed to further promote ulcer healing. He tolerated this well. To keep this intact and to remain nonweightbearing to the right lower extremity. I recommend physical therapy does not work on range of motion exercises at this time. To continue to use assistive device. To return to the wound healing center 1 week or call sooner if is any questions or concerns. This is a staged treatment plan and he is doing well so far. Anticipated healing time management was discussed in detail.
[2018-09-17 11:41] VITALS: BP 125/77; PULSE 92; RESP 16; TEMP 36.3; BMI 22.4
[2018-09-17 13:46] LABS: Erythrocyte Sedimentation Rate 74 mm/hr (0-20)
[2018-09-17 13:48] LABS: Absolute Lymphocyte Count 2.77 X10^3/ul (0.83-4.51); Absolute Neutrophil Count 3.1 X10^3/uL (2.0-7.7); Basophil# 0.03 X10^3/uL; Basophil% 0.4 % (0-1); Eosinophils% 8.3 % (0-5); Hematocrit 36.6 % (40-54); Hemoglobin 11.8 g/dl (13.0-16.5); Lymphocyte # 2.77 X10^3/ul (4.0); Lymphocyte % 38.2 % (19-41); Mean Corp Hgb Conc 32.2 g/gl (32-36); Mean Corpuscular Hgb 26.6 pg (27.0-32.0); Mean Corpuscular Volume 82.6 fL (80-94); Mean Platelet Vol. 9.5 fl (6.2-12.0); Monocyte% 9.6 % (0-10); Neutrophil # 3.13 X10^3/uL (2.7-7.7); Neutrophil % 43.1 % (47-70); Platelet Count 282 K/mm3 (150-450); RBC Distribution Width CV 16.6 % (11.6-14.6); RBC Distribution Width SD 50.1 fl (35.1-43.9); Red Blood Count 4.43 M/mm3 (4.6-6.2); White Blood Count 7.3 K/mm3 (4.4-11.0)
[2018-09-17 13:55] LABS: POSITIVE COUNT NO; POSITIVE DIFFERENTIAL NO; POSITIVE MORPHOLOGY NO
[2018-09-17 14:03] LABS: ALB/GLOB Ratio 0.7 RATIO (0.9-2.4); AST(SGOT) 25 U/L (15-37); Alanine Aminotransfer ALT/SGPT 26 U/L (16-61); Albumin, Serum 3.3 g/dL (3.2-5.0); Alkaline Phosphatase 160 U/L (45-117); BUN 19 mg/dL (7-18); BUN/Creat Ratio 20.9 RATIO (10-20); Chloride 105 mmol/L (98-107); Creatinine, Serum 0.91 mg/dL (0.70-1.30); EST Glomerular Filtration Rate 88 mL/min (>60); Est Glom Filt Rate - Afr Amer 107 mL/min (>60); Estimated Creatinine Clearance 87.09 ml/min; Glucose 99 mg/dL (74-106); Potassium 4.2 mmol/L (3.5-5.1); Protein, Total 8.3 g/dL (6.4-8.2); Sodium Level 138 mmol/L (136-145)
[2018-09-17 14:04] LABS: Anion Gap 7 (5-15); CRP 7.75 mg/L (0.0-3.0)
[2018-09-17 14:49] LABS: M R Staph aureus DNA By PCR Negative (Negative); Probe Check PASS; Specimen Processing Control PASS; Staph aureus DNA By PCR NEGATIVE (Negative)
--- NOTE | 2018-09-17 19:14 | PN.PCM_ITS ---
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 Status: Chronic Current Visit: Yes Code(s): L97.913 - Non-pressure chronic ulcer of unspecified part of right lower leg with necrosis of muscle (2) Other specified peripheral vascular diseases Status: Chronic Current Visit: Yes Code(s): I73.89 - Other specified peripheral vascular diseases (3) Delayed wound healing Status: Acute Current Visit: Yes Code(s): T14.8XXD - Other injury of unspecified body region, subsequent encounter (4) Malnutrition Status: Chronic Current Visit: Yes Code(s): E46 - Unspecified protein- calorie malnutrition Type of Wound Date of Service: 09/17/18 Chief Complaint: Leg ulcer right History of Wound: Mr. Sinclair is a 68 year old with past medical history of atrial fibrillation, peripheral arterial disease status post left lower extremity stenting and tobacco abuse presents for follow-up of right leg ulcer. He had a reported deep venous thrombosis of the right leg and developed subsequent compartment syndrome previously. He underwent surgical fasciotomy on July 07 at [facility] and has a resultant chronic wound. He had a recent surgical debridement and serial application of advanced wound care product with delayed closure and application of wound VAC on 08/15/2018 and 08/19/2018, respectively. Essentially he has had a chronic ulcer with exposed necrotic muscle since the end of June 2018. He denies fever, chill, nausea, vomiting, chest pain, shortness of breath. He has kept his wound VAC in place as advised. He notices a slight odor today. He has previously completed his antibiotic course. He denies a wound VAC leaking this past week. He is with his family member today. Progress of Wound: Stable - Physical Exam Vital Signs Temp Pulse Resp BP 97.3 F L 92 16 125/77 H 09/17/18 11:41 09/17/18 11:41 09/17/18 11:41 09/17/18 11:41 General: Alert, Oriented x3, Cooperative HEENT: Atraumatic Extremities: No cyanosis, Capillary Refill Less than 3 Seconds, No Calf Tenderness - Negative Yen and Watts sign right lower extremity. Muscle weakness with plantarflexion and eversion still noted. The compartments remain soft to palpate to the right lower extremity, Diminished Peripheral Pulses, Edema - Mild, Tenderness - Pain with suture removal and ulcer manipulation Skin: Ulcer/ Wound - No purulence erythema streaking maceration noted to the right ulcer site. Upon suture removal there is no new gapping. There is still some centrally exposed tendon with some devitalized central area and dark discoloration. There is a mild odor it is not confirm that this is infectious or more by moisture odor. The peripheral skin is hairless and atrophic. Wound Measurements and Assessment WC - Nurse 1 - General Ulcer Measurement Start: 09/10/18 10:57 Freq: Status: Active Protocol: Activity Type Activity Date Activity User E-Sign Co-Sign Detail Recorded Client Recorded Date Recorded By Document 09/17/18 11:41 [facility] [id number] 09/17/18 11:46 [facility] 09/17/18 11:41 Wound Center Nurse 1 [Ulcer Assessment] #2 right lower leg -Combined with other wound No -Current Size (cm) - Length 13.9 -Current Size (cm) - Width 1.8 -Current Size (cm) - Depth 0.4 -Total Square Cm 25.02 -Date of Last Picture (Recall this 09/17/18 field) -Photo Taken Yes -Epithelialization Small 1-33% -Tunneling No -Undermining/Tunneling Yes -Undermining/Tunneling Starts (O' 4 clock) -Undermining/Tunneling Ends (O'clock) 5 -Maximum Distance (cm) 0.3 -Circular Undermining No -Classification - Thickness Full Thickness with Exposed Support Structure -Exudate Amt Medium -Exudate Type Serosanguineous -Wound Margin Flat & Intact -Granulation Amt Medium (34-66%) -Granulation Quality Red -Slough/Fibrin Yes -Necrosis Amt Small (1-33%) -Necrotic Tissue Type Adherent Slough -Structure Exposed Tendon -Texture (Denisa-wound Skin Appearance) Assessed Scarring -Moisture (Denisa-wound Skin Appearance Assessed ) -Color (Denisa-wound Skin Appearance) Assessed -Temperature (Denisa-wound Skin No Abnormality Appearance) (Pt Warm) -Tenderness on Palpation (Denisa-wound Yes Skin Appearance) -Ulcer Cleansing Wound Cleanser -Foul Odor after Cleansing No -Anesthetic Used 4% Lidocaine Solution [Edema Assessment] -Lower Limb Edema Present Yes -Right Calf (cm) 31.4 -Right Ankle (cm) 20.8 WC - Nurse 2 - General Ulcer CM Notes Start: 09/10/18 10:57 Freq: Status: Active Protocol: Activity Type Activity Date Activity User E-Sign Co-Sign Detail Recorded Client Recorded Date Recorded By Document 09/17/18 12:06 AN [id number] 09/17/18 12:15 AN 09/17/18 12:06 Wound Center Nurse 2 [Procedure/Treatment] #2 right lower leg -Time 12:07 -Correct Patient Yes -Correct Side, Site, Position Yes -Correct Procedure Yes -Procedure Performed Yes -Type of Procedure Debridement -Clinical Debridement Subcutaneous -Post Debridement Size (cm) - Length 14 -Post Debridement Size (cm) - Width 1.9 -Post Debridement Size (cm) - Depth 0.4 -Total Square Cm 26.6 -Wound/Ulcer Outcome Not Healed -Ulcer Cleansing Rinsed/ Irrigated with Saline -Foul Odor after Cleansing Yes -Bleeding Controlled with Pressure -Offloading No -Treatment Response Procedure Tolerated Well [See Physician Procedure note for Specifics] Pain Scale: 0-10 Numeric [Pain] -Is Patient Pain Free? Yes Musculoskeletal: No Tenderness to Palpation of Joints or Extremities, Muscle Wasting Neurological: Sensory exam intact to light touch and pain Psych/Mental Status: Normal Affect, Appropriate Debridement Note Post-Debridement Measurements/Treatment WC - Nurse 2 - General Ulcer CM Notes Start: 09/10/18 10:57 Freq: Status: Active Protocol: Activity Type Activity Date Activity User E-Sign Co-Sign Detail Recorded Client Recorded Date Recorded By Document 09/10/18 11:55 [id number] 09/10/18 12:14 Document 09/17/18 12:06 AN [id number] 09/17/18 12:15 AN 09/10/18 09/17/18 11:55 12:06 Wound Center Nurse 2 #2 right lower leg -Time 11:55 12:07 -Correct Patient Yes Yes -Correct Side, Site, Position Yes Yes -Correct Procedure Yes Yes -Procedure Performed Yes Yes -Type of Procedure Debridement Debridement -Clinical Debridement Subcutaneous Subcutaneous -Post Debridement Size (cm) - Length 15.5 14 -Post Debridement Size (cm) - Width 2.4 1.9 -Post Debridement Size (cm) - Depth 0.2 0.4 -Total Square Cm 37.20 26.6 -Wound/Ulcer Outcome Not Healed Not Healed -Ulcer Cleansing Rinsed/ Rinsed/ Irrigated with Irrigated with Saline Saline -Foul Odor after Cleansing Yes -Bioengineered Tissue No -Bleeding Controlled with Pressure Pressure -Offloading No No -Treatment Response Procedure Procedure Tolerated Well Tolerated Well Pain Scale: 0-10 Numeric Is Patient Pain Free? Yes Yes Wound debrided: lateral leg Laterality: Right Type of Debridement: Excisional debridement Anesthesia Used: 5% Lidocaine Gel Depth: in the subcutaneous layer, to muscle Percentage of wound debrided: 100 Instrument Used: #15 blade, Forceps Tissue Removed: fibrous, devitalized subcutaneous, biofilm, slough Severity: Necrosis of Muscle Amount of bleeding with debridement: Mild Bleeding Controlled with: Pressure Patient tolerated procedure well Assessment/Plan Active Problems (Last Reviewed 08/01/18 @ 11:55 by Nick Hastinsg MD) Other specified peripheral vascular diseases (Chronic) Delayed wound healing (Acute) Malnutrition (Chronic) 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 Concern of infection return. Peripheral vascular disease. Leg edema and rule out venous insufficiency. Malnutrition. Recent tobacco use Plan: I reviewed and discussed his case. Debridement was performed today and Park with overlying Adaptic was applied. A wound VAC was applied and this will stay on 125mmHg continuous. To change every 3 days. I recommend application of advanced wound care product, epi cord. Prior authorization was initiated and is still pending. The indications, planned procedure, possible benefits, risks, anticipated healing time and management were discussed. He is amenable to proceed. This is medically necessary for limb salvage. He is at high risk for continual infection, delayed healing, and amputations. he already completed his oral antibiotic course per infectious disease recommendations. Although there is no purulence erythema or systemic illness, I am concerned about the new odor. After the ulcer site was debrided and irrigated with normal saline. A tissue sample was taken and sent for aerobic, anaerobic, and MRSA testing. Antibiotics will be initiated pending at least the initial Gram stain and I recommend he follows up with infectious disease next week as well for continuity of care. To continue to eat and take meal supplements as tolerated; he understands this is important for healing potential. To keep pressure off this ulcer by avoiding lying on his right lateral leg. To reduce unnecessary pressure by wearing a light Tubigrip compression garment. To continue posterior mold well-padded splint. To optimize healing by taking nutritional supplementation, [place]. Updated noninvasive vascular studies and venous reflux studies were initially ordered. Then, Dr. Yarbrough's intervention was noted including right leg angioplasty and initiation of thrombolysis on July 03, 2018, right leg angioplasty and thrombolytic check performed on July 04, 2018, and right leg fasciotomy and wound VAC placement performed on July 07, 2018. At this time, the noninvasive vascular studies are not recommended or needed given he has had a previous stent placed. It is noted he will likely have a Doppler performed when he follows up with his vascular surgeon within the next week. His noninvasive studies are canceled at this time and additional vein or artery work-up per Dr. Yarbrough's input is recommended. To keep this intact and to remain nonweightbearing to the right lower extremity. I recommend physical therapy does not work on range of motion exercises at this time. To continue to use assistive device. To return to the wound healing center 1 week or call sooner if is any questions or concerns. This is a staged treatment plan and he is doing well so far. Anticipated healing time management was discussed in detail.
[2018-09-24 13:39] VITALS: BP 110/70; PULSE 82; RESP 20; TEMP 37.2; BMI 22.4
--- NOTE | 2018-09-24 15:31 | PCM.WC.PN ---
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 Sinclair is a 68 year old with past medical history of atrial fibrillation, peripheral arterial disease status post left lower extremity stenting and tobacco abuse presents for follow-up of right leg ulcer. He had a reported deep venous thrombosis of the right leg and developed subsequent compartment syndrome previously. He underwent surgical fasciotomy on July 07 at [facility] and has a resultant chronic wound. He had a recent surgical debridement and serial application of advanced wound care product with delayed closure and application of wound VAC on 08/15/2018 and 08/19/2018, respectively. Essentially he has had a chronic ulcer with exposed necrotic muscle since the end of June 2018. He denies fever, chill, nausea, vomiting, chest pain, shortness of breath. He has kept his wound VAC in place as advised. He notices resolution of previous odor today since he has been taking the recommended antibiotics this past week. He is with his family member today and is also scheduled to see infectious disease specialist. Progress of Wound: Improving - Physical Exam Vital Signs Temp Pulse Resp BP 98.9 F 82 20 H 110/70 09/24/18 13:39 09/24/18 13:39 09/24/18 13:39 09/24/18 13:39 General: Alert, Oriented x3, Cooperative HEENT: Atraumatic Extremities: No cyanosis, Capillary Refill Less than 3 Seconds, No Calf Tenderness - Negative Yen and Watts sign right lower extremity. Pain with ulcer manipulation, Diminished Peripheral Pulses, Edema - Mild right leg Skin: Ulcer/ Wound - No purulence, odor, erythema, streaking, infection, maceration, eschar. There is some exposed devitalized extensor and tibialis anterior tendon noted that is discolored. There is no janel necrotizing fasciitis noted. The peripheral skin is hairless and atrophic consistent with his peripheral vascular disease status. The proximal half of the ulcer site has significant peripheral epithelialization with diminished pale granular base demonstrating healing. The previous incision and drainage site also remains fully epithelialized and coapted after the previous suture removal at last visit. Wound Measurements and Assessment WC - Nurse 1 - General Ulcer Measurement Start: 09/10/18 10:57 Freq: Status: Active Protocol: Activity Type Activity Date Activity User E-Sign Co-Sign Detail Recorded Client Recorded Date Recorded By Document 09/24/18 13:39 RB [id number] 09/24/18 13:57 RB 09/24/18 13:39 Wound Center Nurse 1 [Ulcer Assessment] #2 right lower leg -Combined with other wound No -Current Size (cm) - Length 13.2 -Current Size (cm) - Width 1.5 -Current Size (cm) - Depth 0.7 -Total Square Cm 19.80 -Tunneling No -Undermining/Tunneling No -Circular Undermining No -Exudate Amt Medium -Exudate Type Serosanguineous -Wound Margin Thickened & Rolled Under -Granulation Amt Medium (34-66%) -Granulation Quality Marshall -Slough/Fibrin Yes -Necrosis Amt Medium (34-66%) -Necrotic Tissue Type Adherent Slough -Structure Exposed Tendon -Texture (Denisa-wound Skin Appearance) Assessed Scarring -Moisture (Denisa-wound Skin Appearance Assessed ) -Color (Denisa-wound Skin Appearance) Assessed -Temperature (Denisa-wound Skin No Abnormality Appearance) (Pt Warm) -Tenderness on Palpation (Denisa-wound No Skin Appearance) -Ulcer Cleansing Wound Cleanser -Foul Odor after Cleansing No -Anesthetic Used 4% Lidocaine Solution [Edema Assessment] -Lower Limb Edema Present Yes -Right Calf (cm) 32 -Right Ankle (cm) 21.5 WC - Nurse 2 - General Ulcer CM Notes Start: 09/10/18 10:57 Freq: Status: Active Protocol: Activity Type Activity Date Activity User E-Sign Co-Sign Detail Recorded Client Recorded Date Recorded By Document 09/24/18 14:18 [id number] 09/24/18 14:19 09/24/18 14:18 Wound Center Nurse 2 [Procedure/Treatment] #2 right lower leg -Time 14:18 -Correct Patient Yes -Correct Side, Site, Position Yes -Correct Procedure Yes -Procedure Performed Yes -Type of Procedure Debridement -Clinical Debridement Subcutaneous -Post Debridement Size (cm) - Length 13.3 -Post Debridement Size (cm) - Width 1.5 -Post Debridement Size (cm) - Depth 0.7 -Total Square Cm 19.95 -Wound/Ulcer Outcome Not Healed -Ulcer Cleansing Rinsed/ Irrigated with Saline -Foul Odor after Cleansing No -Bioengineered Tissue No -Bleeding Controlled with Pressure -Offloading No -Treatment Response Procedure Tolerated Well [See Physician Procedure note for Specifics] Pain Scale: 0-10 Numeric [Pain] -Is Patient Pain Free? Yes Musculoskeletal: No Tenderness to Palpation of Joints or Extremities, Muscle Wasting Neurological: Sensory exam intact to light touch and pain Psych/Mental Status: Normal Affect, Appropriate Debridement Note Post-Debridement Measurements/Treatment WC - Nurse 2 - General Ulcer CM Notes Start: 09/10/18 10:57 Freq: Status: Active Protocol: Activity Type Activity Date Activity User E-Sign Co-Sign Detail Recorded Client Recorded Date Recorded By Document 09/10/18 11:55 [id number] 09/10/18 12:14 Document 09/17/18 12:06 AN [id number] 09/17/18 12:15 AN Document 09/24/18 14:18 [id number] 09/24/18 14:19 09/10/18 09/17/18 09/24/18 11:55 12:06 14:18 Wound Center Nurse 2 #2 right lower leg -Time 11:55 12:07 14:18 -Correct Patient Yes Yes Yes -Correct Side, Site, Position Yes Yes Yes -Correct Procedure Yes Yes Yes -Procedure Performed Yes Yes Yes -Type of Procedure Debridement Debridement Debridement -Clinical Debridement Subcutaneous Subcutaneous Subcutaneous -Post Debridement Size (cm) - Length 15.5 14 13.3 -Post Debridement Size (cm) - Width 2.4 1.9 1.5 -Post Debridement Size (cm) - Depth 0.2 0.4 0.7 -Total Square Cm 37.20 26.6 19.95 -Wound/Ulcer Outcome Not Healed Not Healed Not Healed -Ulcer Cleansing Rinsed/ Rinsed/ Rinsed/ Irrigated with Irrigated with Irrigated with Saline Saline Saline -Foul Odor after Cleansing Yes No -Bioengineered Tissue No No -Bleeding Controlled with Pressure Pressure Pressure -Offloading No No No -Treatment Response Procedure Procedure Procedure Tolerated Well Tolerated Well Tolerated Well Pain Scale: 0-10 Numeric Is Patient Pain Free? Yes Yes Yes Wound debrided: lateral leg Laterality: Right Type of Debridement: Excisional debridement Anesthesia Used: 5% Lidocaine Gel Depth: in the subcutaneous layer, to muscle Percentage of wound debrided: 100 - 50% tendon debridement;50% subcutaneous debridement Instrument Used: #15 blade, Forceps Tissue Removed: fibrous, devitalized subcutaneous, biofilm, slough Severity: Necrosis of Muscle Amount of bleeding with debridement: Mild Bleeding Controlled with: Pressure Patient tolerated procedure well Assessment/Plan Assessment: Right leg ulcer with necrotic tendon (This is a chronic ulcer with an onset of June 2018). Concern of infection return. Peripheral vascular disease. Leg edema and rule out venous insufficiency. Malnutrition. Recent tobacco use Plan: I reviewed and discussed his case. Debridement was performed today and [place] with overlying Adaptic was applied. A wound VAC was applied and this will stay on 125mmHg continuous. To change every 3 days. I recommend application of advanced wound care product, epi cord. Prior authorization was initiated and is still pending. The indications, planned procedure, possible benefits, risks, anticipated healing time and management were discussed. He is amenable to proceed. This is medically necessary for limb salvage. He is at high risk for continual infection, delayed healing, and amputations. he already completed his oral antibiotic course per infectious disease recommendations . Although there is no purulence erythema or systemic illness, I am concerned about the new odor that was present last week. It is noted this odor has resolved today. He completed oral antibiotics as recommended last week. After the ulcer site was debrided and irrigated with normal saline. The infectious disease follow-up was completed today and the plan and work-up included the following: recent cx with PsA (now R to cipro), coryne, actino, and anaerobes. Has improved with cipro and augmentin. He is to complete course, but if infection returns then IV antibiotics will be initiated. To continue to eat and take meal supplements as tolerated; he understands this is important for healing potential. To keep pressure off this ulcer by avoiding lying on his right lateral leg. To reduce unnecessary pressure by wearing a light Tubigrip compression garment. To continue posterior mold well-padded splint. To optimize healing by taking nutritional supplementation, [place]. Updated noninvasive vascular studies and venous reflux studies were initially ordered. Then, Dr. Yarbrough's intervention was noted including right leg angioplasty and initiation of thrombolysis on July 03, 2018, right leg angioplasty and thrombolytic check performed on July 04, 2018, and right leg fasciotomy and wound VAC placement performed on July 07, 2018. At this time, the noninvasive vascular studies are not recommended or needed given he has had a previous stent placed. It is noted he will likely have a Doppler performed when he follows up with his vascular surgeon within the next week. His noninvasive studies are canceled at this time and additional vein or artery work-up per Dr. Yarbrough's input is recommended. To keep this intact and to remain nonweightbearing to the right lower extremity. I recommend physical therapy does not work on range of motion exercises at this time. To continue to use assistive device. To discontinue posterior mold. An order was provided for a tall cam walker to help immobilize his dropfoot as well as prevent tendon gliding in the open ulcer site. He will go to the foot and ankle Center to get fitted for this specialized device. This will additionally help control some of his edema in the area. To avoid tightening the straps directly over the ulcer site. I recommended only partial limited weightbearing as tolerated with this and this will be progressed after future follow-ups demonstrated as appropriate. To return to the wound healing center 1 week or call sooner if is any questions or concerns. This is a staged treatment plan and he is doing well so far. Anticipated healing time management was discussed in detail.
--- NOTE | 2018-09-24 16:31 | PCM.PN.ID ---
Patient Problems: Active and Suspected Problems (Last Reviewed 09/19/18 @ 09:44 by Rosa Isela Pat) Delayed wound healing (Acute) Subjective: Feeling ok, just a few doses left of cipro and augmentin. Wound on R brown is dry, no drainage, no odor now. No fever, no n/v/d. - Physical Exam General: Alert, Cooperative, No apparent distress Lungs: Clear to auscultation, Normal air movement Cardiovascular: Regular rate, Regular Rhythm Abdomen: Soft, Non Tender, Non-Distended Skin: Ulcer/ Wound - R brown with exposed tendon, dry, no cellulitis. Vital Signs Temp Pulse Resp BP 98.9 F 82 20 H 110/70 09/24/18 13:39 09/24/18 13:39 09/24/18 13:39 09/24/18 13:39 Oxygen Delivery Method Room Air Weight: 77.111 kg Body Mass Index (BMI) 22.4 Microbiology Past 72 Hours 09/17/18 12:15 Gram Stain - Final Wound Abcess - Leg, Right Wound Culture - Final Pseudomonas aeroginosa Corynebacterium striatum Actinomyces odontolyticus Anaerobic Culture - Final Anaerobic cocci Medical Necessity - Tobacco Use Smoking Status: Former smoker Route of nutrition/ use of supplements: [] Nutritional Intake: [] IV Site: [] [place] Catheter: [] - Assessment/Plan Antibiotics: [] Assessment/Plan: [] Active and Suspected Problems (Last Reviewed 09/19/18 @ 09:44 by Rosa Isela Pat) Delayed wound healing (Acute) R brown wound infection with exposed tendon - recent cx with PsA (now R to cipro), coryne, actino, and anaerobes. Has improved with cipro and augmentin. He is to complete course, but if infection recurs, I think next step would be for several weeks of iv abx. D/w Dr. Titus.
[2018-10-01 10:58] VITALS: BP 122/79; PULSE 92; RESP 18; TEMP 37.3; BMI 22.4
--- NOTE | 2018-10-01 14:12 | PCM.WC.PN ---
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 Status: Chronic Current Visit: Yes Code(s): L97.913 - Non-pressure chronic ulcer of unspecified part of right lower leg with necrosis of muscle (2) Other specified peripheral vascular diseases Status: Chronic Current Visit: Yes Code(s): I73.89 - Other specified peripheral vascular diseases (3) Delayed wound healing Status: Acute Current Visit: Yes Code(s): T14.8XXD - Other injury of unspecified body region, subsequent encounter (4) Malnutrition Status: Chronic Current Visit: Yes Code(s): E46 - Unspecified protein-calorie malnutrition Type of Wound Date of Service: 10/01/18 Chief Complaint: Leg ulcer right History of Wound: Mr. Sinclair is a 68 year old with past medical history of atrial fibrillation, peripheral arterial disease status post left lower extremity stenting and tobacco abuse presents for follow-up of right leg ulcer. He had a reported deep venous thrombosis of the right leg and developed subsequent compartment syndrome previously. He underwent surgical fasciotomy on July 07 at [facility] and has a resultant chronic wound. He had a recent surgical debridement and serial application of advanced wound care product with delayed closure and application of wound VAC on 08/15/2018 and 08/19/2018, respectively. Essentially he has had a chronic ulcer with exposed necrotic muscle since the end of June 2018. He denies fever, chill, nausea, vomiting, chest pain, shortness of breath. He denies odor. He has mild pain. Progress of Wound: Improving proximal aspect and lack of improvement to the distal aspect with continual exposed tendon with devitalization and lack of progress - Physical Exam Vital Signs Temp Pulse Resp BP 99.1 F 92 18 122/79 H 10/01/18 10:58 10/01/18 10:58 10/01/18 10:58 10/01/18 10:58 General: Alert, Oriented x3, Cooperative HEENT: Atraumatic Extremities: No cyanosis, Capillary Refill Less than 3 Seconds - All digits right foot, No Calf Tenderness - Negative Yen and Watts sign right leg, Diminished Peripheral Pulses, Edema - Decreased right leg, - - Minimal pain with also manipulation. Compartments remain soft to palpate right lower extremity. He does have a dropfoot and this is starting to turn into a contraction with the foot in a plantarflexed position and decreased passive and active range of motion of the ankle. He is unable to perform active eversion of the right ankle as well. Skin: Ulcer/ Wound - The proximal aspect and distal aspect of the wound is now with a bridge of epithelialization. The proximal aspect of the wound is fully granular and superficial without signs of infection. The distal aspect of the ulcer site has edematous tendon without acute signs of necrosis or infection. This exposed tendon and continued swelling with dried superficial aspect is a concern. There is no odor redness or streaking. The peripheral skin is hairless and atrophic right lower extremity Wound Measurements and Assessment WC - Nurse 1 - General Ulcer Measurement Start: 09/10/18 10:57 Freq: Status: Active Protocol: Activity Type Activity Date Activity User E-Sign Co-Sign Detail Recorded Client Recorded Date Recorded By Document 10/01/18 10:58 [facility] [id number] 10/01/18 11:06 [facility] 10/01/18 10:58 Wound Center Nurse 1 [Ulcer Assessment] #2 right lower leg -Combined with other wound No -Current Size (cm) - Length 12.3 -Current Size (cm) - Width 1.4 -Current Size (cm) - Depth 0.4 -Total Square Cm 17.22 -Date of Last Picture (Recall this 10/01/18 field) -Photo Taken Yes -Epithelialization Small 1-33% -Tunneling No -Undermining/Tunneling No -Circular Undermining No -Classification - Thickness Full Thickness with Exposed Support Structure -Exudate Amt None Present -Wound Margin Distinct, Outline Attached -Granulation Amt Small (1-33%) -Granulation Quality Red -Slough/Fibrin Yes -Necrosis Amt Large (67-100%) -Necrotic Tissue Type Adherent Slough -Texture (Denisa-wound Skin Appearance) Scarring -Moisture (Denisa-wound Skin Appearance Assessed ) -Color (Denisa-wound Skin Appearance) Assessed -Temperature (Denisa-wound Skin No Abnormality Appearance) (Pt Warm) -Tenderness on Palpation (Denisa-wound Yes Skin Appearance) -Ulcer Cleansing Wound Cleanser -Foul Odor after Cleansing No -Anesthetic Used 4% Lidocaine Solution WC - Nurse 2 - General Ulcer CM Notes Start: 09/10/18 10:57 Freq: Status: Active Protocol: Activity Type Activity Date Activity User E-Sign Co-Sign Detail Recorded Client Recorded Date Recorded By Document 10/01/18 11:17 AN [id number] 10/01/18 11:22 AN 10/01/18 11:17 Wound Center Nurse 2 [Procedure/Treatment] -Time 11:17 -Correct Patient Yes -Correct Side, Site, Position Yes -Correct Procedure Yes -Procedure Performed Yes -Type of Procedure Debridement -Clinical Debridement Selective -Post Debridement Size (cm) - Length 12.4 -Post Debridement Size (cm) - Width 1.5 -Post Debridement Size (cm) - Depth 0.4 -Total Square Cm 18.60 -Wound/Ulcer Outcome Not Healed -Ulcer Cleansing soap and water -Foul Odor after Cleansing No -Bioengineered Tissue No -Bleeding Controlled with Pressure -Offloading Yes -Treatment Response Procedure Tolerated Well [See Physician Procedure note for Specifics] Pain Scale: 0-10 Numeric [Pain] -Is Patient Pain Free? Yes Musculoskeletal: No Tenderness to Palpation of Joints or Extremities, Muscle Wasting Neurological: Sensory exam intact to light touch and pain Psych/Mental Status: Normal Affect, Appropriate Debridement Note Post-Debridement Measurements/Treatment WC - Nurse 2 - General Ulcer CM Notes Start: 09/10/18 10:57 Freq: Status: Active Protocol: Activity Type Activity Date Activity User E-Sign Co-Sign Detail Recorded Client Recorded Date Recorded By Document 09/10/18 11:55 [id number] 09/10/18 12:14 Document 09/17/18 12:06 AN [id number] 09/17/18 12:15 AN Document 09/24/18 14:18 [id number] 09/24/18 14:19 Document 10/01/18 11:17 AN [id number] 10/01/18 11:22 AN 09/10/18 09/17/18 09/24/18 11:55 12:06 14:18 Wound Center Nurse 2 #2 right lower leg -Time 11:55 12:07 14:18 -Correct Patient Yes Yes Yes -Correct Side, Site, Position Yes Yes Yes -Correct Procedure Yes Yes Yes -Procedure Performed Yes Yes Yes -Type of Procedure Debridement Debridement Debridement -Clinical Debridement Subcutaneous Subcutaneous Subcutaneous -Post Debridement Size (cm) - Length 15.5 14 13.3 -Post Debridement Size (cm) - Width 2.4 1.9 1.5 -Post Debridement Size (cm) - Depth 0.2 0.4 0.7 -Total Square Cm 37.20 26.6 19.95 -Wound/Ulcer Outcome Not Healed Not Healed Not Healed -Ulcer Cleansing Rinsed/ Rinsed/ Rinsed/ Irrigated with Irrigated with Irrigated with Saline Saline Saline -Foul Odor after Cleansing Yes No -Bioengineered Tissue No No -Bleeding Controlled with Pressure Pressure Pressure -Offloading No No No -Treatment Response Procedure Procedure Procedure Tolerated Well Tolerated Well Tolerated Well Pain Scale: 0-10 Numeric Is Patient Pain Free? Yes Yes Yes 10/01/18 11:17 Wound Center Nurse 2 #2 right lower leg -Time 11:17 -Correct Patient Yes -Correct Side, Site, Position Yes -Correct Procedure Yes -Procedure Performed Yes -Type of Procedure Debridement -Clinical Debridement Selective -Post Debridement Size (cm) - Length 12.4 -Post Debridement Size (cm) - Width 1.5 -Post Debridement Size (cm) - Depth 0.4 -Total Square Cm 18.60 -Wound/Ulcer Outcome Not Healed -Ulcer Cleansing soap and water -Foul Odor after Cleansing No -Bioengineered Tissue No -Bleeding Controlled with Pressure -Offloading Yes -Treatment Response Procedure Tolerated Well Pain Scale: 0-10 Numeric Is Patient Pain Free? Yes Wound debrided: lateral leg Laterality: Right Type of Debridement: Excisional debridement Anesthesia Used: 5% Lidocaine Gel Depth: in the subcutaneous layer, to muscle Percentage of wound debrided: 100 Instrument Used: #15 blade, Forceps Tissue Removed: fibrous, devitalized subcutaneous and muscle/tendon, biofilm, slough Severity: Fat Layer Exposed Amount of bleeding with debridement: Mild Bleeding Controlled with: Pressure Patient tolerated procedure well Assessment/Plan Active Problems (Last Reviewed 09/19/18 @ 09:44 by Rosa Isela Pat) Other specified peripheral vascular diseases (Chronic) Delayed wound healing (Acute) Malnutrition (Chronic) 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 Recent infection resolved. Peripheral vascular disease. Leg edema and rule out venous insufficiency. Malnutrition. Recent tobacco use Plan: I reviewed and discussed his case. Debridement was performed today and Park with moistened saline was applied nursing staff noted the Park was not absorbed into the tissue, and the ulcer site appeared very dry. We will try to improve a proper moisture balance this next week by changing the dressing daily as done today and put the wound VAC on hold. I explained the purposes of the wound VAC is not only to remove moisture but also to apply negative pressure to advance granulation formation. I recommend application of advanced wound care product, epi cord. authorization was initiated and this was not approved for the outpatient setting. I recommend surgical debridement in the operating room with application of advanced wound healing product. This is medically necessary to save his limb. The debridement will be more aggressive than performed in the outpatient setting with local anesthetic and he will plan to take an antianxiety medication prior to the procedure. The indications, planned procedure, possible benefits, risks, anticipated healing time and management were discussed. He is amenable to proceed. He is at high risk for continual infection, delayed healing, and amputations. It is also noted he is a high risk anesthesia candidate. He did have acute EKG changes after his last surgery and I recommend using limited anesthesia that may put him at risk for further cardiac issues. He already completed his oral antibiotic course per infectious disease recommendations . The infectious disease follow-up will proceed as scheduled.He has completed course of oral antibiotics and has responded well. if infection returns, then IV antibiotics will be initiated. To continue to eat and take meal supplements as tolerated; he understands this is important for healing potential. To keep pressure off this ulcer by avoiding lying on his right lateral leg. To reduce unnecessary pressure by wearing a light Tubigrip compression garment. To continue CAM Walker weight-bear as tolerated with assistive device as needed. [place] heel lifts were added to the cam walker today to accommodate his plantarflex dropfoot position and contraction. To optimize healing by taking nutritional supplementation, [place]. Updated noninvasive vascular studies and venous reflux studies were initially ordered. Then, Dr. Yarbrough's intervention was noted including right leg angioplasty and initiation of thrombolysis on July 03, 2018, right leg angioplasty and thrombolytic check performed on July 04, 2018, and right leg fasciotomy and wound VAC placement performed on July 07, 2018. At this time, the noninvasive vascular studies are not recommended or needed given he has had a previous stent placed. It is noted he will likely have a Doppler performed when he follows up visit with his vascular surgeon. To keep this intact and to remain nonweightbearing to the right lower extremity. I recommend physical therapy does not work on range of motion exercises at this time. To return to the wound healing center 1 week or call sooner if is any questions or concerns. This is a staged treatment plan and he is doing well so far.
== END 2018-10-07 23:59 ==
LOC: WC 10:45
PROVIDERS: Family Provider Internal Medicine; PCP Internal Medicine; Referring Provider Podiatrist; Visit Provider Podiatrist
DX: I73.9 Peripheral vascular disease, unspecified (principal); L97.812 Non-pressure chronic ulcer of other part of right lower leg with fat layer exposed; R60.0 Localized edema; I48.91 Unspecified atrial fibrillation; Z72.0 Tobacco use; Z86.718 Personal history of other venous thrombosis and embolism; L97.813 Non-pressure chronic ulcer of other part of right lower leg with necrosis of muscle
CPT/HCPCS: 11042; 11043; 11045; 11046; 36415; 80053; 85025; 85652; 86140; 87070; 87075; 87077; 87186; 87205; 87640; 97605

== ENCOUNTER 2018-10-17 05:59 | Day surgery (SDC) | payer MEDICARE, MEDICAID, SELFPAY ==
[2018-10-08 13:11] VITALS: BMI 22.4
[2018-10-15 13:43] VITALS: BMI 22.4
[2018-10-17 06:26] VITALS: BP 122/71; PULSE 70; RESP 18; TEMP 36.6; O2SAT 98; BMI 22.4
[2018-10-17 06:41] LABS: Absolute Lymphocyte Count 2.54 X10^3/ul (0.83-4.51); Absolute Neutrophil Count 2.6 X10^3/uL (2.0-7.7); Basophil# 0.06 X10^3/uL; Basophil% 0.9 % (0-1); Eosinophil# 0.88 X10^3/uL; Hematocrit 35.2 % (40-54); Hemoglobin 10.9 g/dl (13.0-16.5); Lymphocyte # 2.54 X10^3/ul (4.0); Lymphocyte % 37.6 % (19-41); Mean Corpuscular Hgb 24.9 pg (27.0-32.0); Mean Corpuscular Volume 80.4 fL (80-94); Mean Platelet Vol. 9.3 fl (6.2-12.0); Monocyte% 10.4 % (0-10); Neutrophil # 2.56 X10^3/uL (2.7-7.7); Neutrophil % 37.8 % (47-70); Platelet Count 268 K/mm3 (150-450); RBC Distribution Width CV 15.9 % (11.6-14.6); RBC Distribution Width SD 45.3 fl (35.1-43.9); Red Blood Count 4.38 M/mm3 (4.6-6.2); White Blood Count 6.8 K/mm3 (4.4-11.0)
[2018-10-17 06:42] LABS: POSITIVE COUNT NO; POSITIVE DIFFERENTIAL NO; POSITIVE MORPHOLOGY NO
[2018-10-17] MEDS: Bupivacaine Mpf 0.5% 30 ML VIAL (07:45)
[2018-10-17 08:31] VITALS: BP 122/71; BP 149/92; PULSE 68; RESP 16; TEMP 36.3; O2SAT 96
--- NOTE | 2018-10-17 08:52 | DCINST_ITS ---
Discharge Activity: May not drive while taking narcotic pain medications. Weight Bearing Status: No weight bearing Keep extremity elevated above heart level: Right Leg Call your doctor if your incision/area has: Continuous Slow Oozing, Sudden Increased Bleeding, Increased Pain/ Swelling, Increased Redness, Foul Smelling Discharge, Swelling at the incision site Call your doctor if you observe: Fever of 101 or Higher, Coldness, Increased Pain, Numbness or Tingling, Calf discomfort, Uncontrolled pain Cleanse incision/area with: Keep Dressing Clean & Dry - wound vac on continuous until clinic follow up. Call Dr. Valadez if alert light comes on Allergies/Adverse Reactions: Allergies No Known Allergies Allergy (Verified 09/19/18 09:41) Medications to take at Discharge Clopidogrel Bisulfate [Plavix] 75 mg PO DAILY 05/30/17 Diltiazem HCl 120 mg PO DAILY 08/13/18 gabapentin 100 mg capsule 100 mg PO TID 09/19/18 oxycodone-acetaminophen 5 mg-325 mg tablet 1 tab PO TID 09/19/18 Primary Care Physician: Cristopher Heart MD [Primary Care Provider] - Test Results: Test results from this visit will be discussed in further detail at your follow- up appointment, if applicable. Please Follow Up With: Felisha Valadez DPM When: 1 week Wound healing center. Call [phone] sooner if concerns Proposed Discharge Date: 10/17/18
--- NOTE | 2018-10-17 08:52 | OP.PCM_ITS ---
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 Application of advanced wound healing product, amnio fill and epi cord right leg. Application of wound VAC right leg Description of Surgical Findings:: Hemostasis: No tourniquet utilized, controlled Materials: 3-0 nylon, 500 mg of amnio fill, one 3 x5 centimeter epi cord, Adaptic Complications: none He tolerated the procedure and anesthesia well. He was transported to the postoperative recovery area with vital signs stable vascular status intact to the right lower extremity. This procedure was performed only under local anes thetic and he was sedated with 1 mg of Ativan preoperatively. Postoperative orders were entered electronically. He will be discharged home upon continued pain control. He will follow-up at the wound healing center next week. He was advised to keep his wound VAC intact until follow-up. roller skater: none - surgeon: Felisha Titus DPM. Carbonation Equipment Operator: Roberto Mercado PGY1 Type of Anesthesia:: Local - Preoperative: 14 cc of one-to-one mixture of 1% lidocaine plain 0.5% Marcaine plain administered keenan-and intraoral ulcer location to the right leg. Intraoperative: an additional 4 cc of the same mixture was administered to the right leg Estimated Blood Loss (mL): <50 mL Description of Procedure: Indications: This 68-year-old male with significant past medical history of atrial fibrillation, rheumatic mitral valve disease, peripheral vascular disease, history of deep venous thrombosis, and history of myocardial infarction has a chronic delayed healing ulcer to the right anterior lateral leg with exposed tendon. He has had recurrent infections. He had a previous thrombectomy performed in fasciotomy secondary to blood clot and compartment syndrome respectively. He is also had serial debridements and a comprehensive wound healing plan including additional offloading, wound VAC and nutritional supplementation. His preoperative diagnostic data was reviewed including lab work and he is stable at this time. The preoperative indications, planned procedure, possible benefits, risks, complications, and anticipated healing time management were discussed in detail the patient. He understands and elects to proceed with surgery at this time. He understands risks and complications include but are not limited to the following: Swelling, scarring, continued delayed or nonhealing, repetitive infection, need for further surgery, blood clot, allergic reaction, loss of limb, function, life, chronic pain, need for bracing. No guarantees were made. The informed surgical consent and limb were signed. I answered all his questions. His preoperative screening history and physical was also reviewed. Procedure in detail: The patient was transferred to the operating room via cart and placed on the operating table in supine position. Final verification of patient, surgery, sin b designation was performed via the timeout procedure. Local anesthetic was administered via the podiatry team. No tourniquet was placed. Right lower extremity is prepped and draped in usual aseptic manner. The patient was tested for anesthesia and this was successfully performed. Surgery began in the following manner: Attention was directed to the anterior lateral leg at the open ulcer site which measured approximately 7.4 x 1.6 x 1.1 cm with exposed unhealthy anterior compartment tendons. No janel purulence or necrosis was noted. The debridement was initiated with versa jet and setting 8 to excisionally remove devitalized subcutaneous and tendon tissue, biofilm, and slough. Additional 15 blade scalpel and pickup were used for additional debridement. This open ulcer site was copiously irrigated with normal saline and the post debridement measurement was 8 cm x 1.8 cm x 1.8 cm. Pressure was applied to maintain hemostasis. Additional intraoperative local anesthetic was administered at this time due to patient feedback. Next, 500 mg of amnio fill, advanced wound healing product was packed into the wound was moistened with saline. This was further covered by epi cord which was sutured in place with nylon. This was moistened with saline and the hematogenous drainage. This was further covered with a protective layer of Adaptic which was also sutured in place. No pulsatile bleeding was noted at this time and no signs of local infection were noted. Next a small RONNIE wound VAC was applied according to standard protocol was set on continuous. This was secured in place with reinforcement strips and no leaks were noted. An outer protective dressing consisting of abdominal pads and Fady wrap were applied. The wound VAC port was positioned on a nonpressure site in a manner which the patient could easily check for alert lights. After procedure: The patient tolerated the procedure anesthesia well. He was transported to the PACU vital signs stable vascular status intact to the right lower extremity. He will be transferred home upon continued pain control and stability. He is doing very well at this time. He was advised to keep his wound VAC and dressing clean, dry, and intact until follow-up with the wound healing center next Saturday. He is advised to continue immobilization with the cam walker boot. To keep pressure off the ulcer site. To continue with nutritional supplementation optimize healing. His postoperative orders were entered electronically. Felisha Titus DPM, [facility] - Complications none - Admit VTE Documentation VTE Present on Admission: No VTE Mechan Device Prophylaxis: SCD's VTE Pharm Prophylaxis ordered?: No Reason prophylaxis not ordered:: Treatment Not Indicated
== END 2018-10-17 08:50 | disposition home or self-care (01) ==
LOC: SDC 06:00 → AC 06:00
PROVIDERS: Family Provider Internal Medicine; PCP Internal Medicine; Referring Provider Podiatrist; Visit Provider Podiatrist
PROC: (CPT 15271; principal; 2018-10-17 07:15)
DX: L97.913 Non-pressure chronic ulcer of unspecified part of right lower leg with necrosis of muscle (principal); I48.0 Paroxysmal atrial fibrillation; I77.9 Disorder of arteries and arterioles, unspecified; I25.2 Old myocardial infarction; Z86.718 Personal history of other venous thrombosis and embolism; Z79.01 Long term (current) use of anticoagulants; Z87.891 Personal history of nicotine dependence
CPT/HCPCS: 15271; 97605; 85025; J7120

== ENCOUNTER 2018-11-05 11:30 | Outpatient (RCR) | payer MEDICARE, MEDICAID, SELFPAY ==
[2018-10-08 01:26] VITALS: BP 122/79; PULSE 92; RESP 18; TEMP 37.3
[2018-10-08 13:11] VITALS: BP 126/69; PULSE 77; RESP 16; TEMP 36.9; BMI 22.4
--- NOTE | 2018-10-08 15:34 | PCM.WC.PN ---
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 Status: Chronic Current Visit: Yes Code(s): L97.913 - Non-pressure chronic ulcer of unspecified part of right lower leg with necrosis of muscle (2) Other specified peripheral vascular diseases Status: Chronic Current Visit: Yes Code(s): I73.89 - Other specified peripheral vascular diseases (3) Delayed wound healing Status: Acute Current Visit: Yes Code(s): T14.8XXD - Other injury of unspecified body region, subsequent encounter (4) Malnutrition Status: Chronic Current Visit: Yes Code(s): E46 - Unspecified protein-calorie malnutrition (5) Peripheral arterial occlusive disease Status: Chronic Current Visit: Yes Code(s): I77.9 - Disorder of arteries and arterioles, unspecified Comment: Ischemic RLE 07/04/18 (6) Other acquired deformities of right foot Status: Chronic Current Visit: Yes Code(s): M21.6X1 - Other acquired deformities of right foot (7) Foot drop, right Status: Chronic Current Visit: Yes Code(s): M21.371 - Foot drop, right foot (8) Difficulty walking Status: Chronic Current Visit: Yes Code(s): R26.2 - Difficulty in walking, not elsewhere classified (9) Pain in right lower leg Status: Chronic Current Visit: Yes Code(s): M79.661 - Pain in right lower leg Type of Wound Date of Service: 10/08/18 Chief Complaint: Leg ulcer right History of Wound: Mr. Sinclair is a 68 year old with past medical history of atrial fibrillation, peripheral arterial disease status post left lower extremity stenting and tobacco abuse presents for follow-up of right leg ulcer. He had a reported deep venous thrombosis of the right leg and developed subsequent compartment syndrome previously. He underwent surgical fasciotomy on July 07 at [facility] and has a resultant chronic wound. He had a recent surgical debridement and serial application of advanced wound care product with delayed closure and application of wound VAC on 08/15/2018 and 08/19/2018, respectively. Essentially he has had a chronic ulcer with exposed necrotic muscle since the end of June 2018. He denies fever, chill, nausea, vomiting, chest pain, shortness of breath. He denies odor. He has mild continued pain to the ulcer site and contracted right ankle and foot that has progressively developed as a sequela. He has been trying to use the cam walker however this is heavy for him to utilize. He would be interested in more permanent brace. He is with his family member today. Progress of Wound: -Healed proximal ulcer aspect. -distal aspect with continual exposed tendon with devitalization and lack of progress - Physical Exam Vital Signs Temp Pulse Resp BP 98.4 F 77 16 126/69 H 10/08/18 13:11 10/08/18 13:11 10/08/18 13:11 10/08/18 13:11 General: Alert, Oriented x3, Cooperative HEENT: Atraumatic Extremities: No cyanosis, Capillary Refill Less than 3 Seconds, No Calf Tenderness - Negative Yen and Watts sign right lower extremity. Pain with ulcer debridement and manipulation. The compartments remain soft to the right lower extremity, Diminished Peripheral Pulses, Edema - Mild right lower extremity Skin: Ulcer/ Wound - No purulence, erythema hamstring, odor, infection, eschar. Peripheral skin is hairless and atrophic. There is exposed tendon and this is devitalized and discolored. No deep probing to bone. The proximal and distal aspects of the ulcer site do undermining this consistent with the associated fascial compartment. Wound Measurements and Assessment WC - Nurse 1 - General Ulcer Measurement Start: 10/08/18 13:11 Freq: Status: Active Protocol: Activity Type Activity Date Activity User E-Sign Co-Sign Detail Recorded Client Recorded Date Recorded By Document 10/08/18 13:11 [id number] 10/08/18 13:18 10/08/18 13:11 Wound Center Nurse 1 [Ulcer Assessment] #2 right lower leg -Combined with other wound No -Current Size (cm) - Length 6.8 -Current Size (cm) - Width 1.6 -Current Size (cm) - Depth 0.7 -Total Square Cm 10.88 -Photo Taken No -Epithelialization Small 1-33% -Tunneling No -Undermining/Tunneling No -Circular Undermining No -Exudate Amt Medium -Exudate Type Serosanguineous -Wound Margin Flat & Intact -Granulation Amt None Present (0 %) -Slough/Fibrin Yes -Necrosis Amt Large (67-100%) -Necrotic Tissue Type Adherent Slough -Structure Exposed N/A -Texture (Denisa-wound Skin Appearance) Assessed -Moisture (Denisa-wound Skin Appearance Assessed ) Dry/Scaly -Color (Denisa-wound Skin Appearance) Assessed -Temperature (Denisa-wound Skin No Abnormality Appearance) (Pt Warm) -Tenderness on Palpation (Denisa-wound No Skin Appearance) -Ulcer Cleansing Rinsed/ Irrigated with Saline -Foul Odor after Cleansing No -Anesthetic Used 4% Lidocaine Solution [Edema Assessment] -Lower Limb Edema Present Yes -Right Calf (cm) 31.0 -Right Ankle (cm) 19.8 WC - Nurse 2 - General Ulcer CM Notes Start: 10/08/18 13:11 Freq: Status: Active Protocol: Activity Type Activity Date Activity User E-Sign Co-Sign Detail Recorded Client Recorded Date Recorded By Document 10/08/18 13:28 AN [id number] 10/08/18 13:30 AN 10/08/18 13:28 Wound Center Nurse 2 [Procedure/Treatment] #2 right lower leg -Time 13:28 -Correct Patient Yes -Correct Side, Site, Position Yes -Correct Procedure Yes -Procedure Performed Yes -Type of Procedure Debridement -Clinical Debridement Subcutaneous -Post Debridement Size (cm) - Length 6.9 -Post Debridement Size (cm) - Width 1.7 -Post Debridement Size (cm) - Depth 0.7 -Total Square Cm 11.73 -Wound/Ulcer Outcome Not Healed -Ulcer Cleansing Rinsed/ Irrigated with Saline -Foul Odor after Cleansing No -Bioengineered Tissue No -Bleeding Controlled with Pressure -Offloading Yes -Type of Offloading Camwalker -Treatment Response Procedure Tolerated Well [See Physician Procedure note for Specifics] Pain Scale: 0-10 Numeric [Pain] -Is Patient Pain Free? Yes Musculoskeletal: No Tenderness to Palpation of Joints or Extremities, Muscle Wasting, - - Lack of strength consistent with dropfoot. Contraction noted to the right lower extremity. Lack of passive ankle dorsiflexion, plantarflexion, inversion and eversion. Neurological: Sensory exam intact to light touch and pain Psych/Mental Status: Normal Affect, Appropriate Debridement Note Post-Debridement Measurements/Treatment - Nurse 2 - General Ulcer CM Notes Start: 10/08/18 13:11 Freq: Status: Active Protocol: Activity Type Activity Date Activity User E-Sign Co-Sign Detail Recorded Client Recorded Date Recorded By Document 10/08/18 13:28 AN [id number] 10/08/18 13:30 AN 10/08/18 13:28 Wound Center Nurse 2 #2 right lower leg -Time 13:28 -Correct Patient Yes -Correct Side, Site, Position Yes -Correct Procedure Yes -Procedure Performed Yes -Type of Procedure Debridement -Clinical Debridement Subcutaneous -Post Debridement Size (cm) - Length 6.9 -Post Debridement Size (cm) - Width 1.7 -Post Debridement Size (cm) - Depth 0.7 -Total Square Cm 11.73 -Wound/Ulcer Outcome Not Healed -Ulcer Cleansing Rinsed/ Irrigated with Saline -Foul Odor after Cleansing No -Bioengineered Tissue No -Bleeding Controlled with Pressure -Offloading Yes -Type of Offloading Camwalker -Treatment Response Procedure Tolerated Well Pain Scale: 0-10 Numeric Is Patient Pain Free? Yes Wound debrided: leg lateral Laterality: Right Type of Debridement: Excisional debridement Anesthesia Used: 5% Lidocaine Gel Depth: to muscle Percentage of wound debrided: 100 Instrument Used: #15 blade, Forceps Tissue Removed: fibrous, devitalized subcutaneous, biofilm, slough Severity: Fat Layer Exposed Amount of bleeding with debridement: Mild Bleeding Controlled with: Pressure Patient tolerated procedure well Assessment/Plan Active Problems (Last Reviewed 09/19/18 @ 09:44 by Rosa Isela Pat) Other acquired deformities of right foot (Chronic) Foot drop, right (Chronic) Difficulty walking (Chronic) Pain in right lower leg (Chronic) Other specified peripheral vascular diseases (Chronic) Delayed wound healing (Acute) Malnutrition (Chronic) 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 Recent infection resolved. Peripheral vascular disease. Leg edema and rule out venous insufficiency. Malnutrition. Recent tobacco use. Walking difficulty. Pain in right limb lower. Contraction right lower extremity at ankle level. Right dropfoot Plan: I reviewed and discussed his case. Debridement was performed today and Park with moistened saline was applied nursing staff noted the Park was not absorbed into the tissue, and the ulcer site appeared very dry. To change dressing daily with iodoform gauze packing to the distal and proximal aspect daily. Home health orders will be placed. I recommend application of advanced wound care product, epi cord. authorization was initiated and this was not approved for the outpatient setting. I recommend surgical debridement in the operating room with application of advanced wound healing product. This is medically necessary to save his limb. The debridement will be more aggressive than performed in the outpatient setting with local anesthetic and he will plan to take an antianxiety medication prior to the procedure. The indications, planned procedure, possible benefits, risks, anticipated healing time and management were discussed. He is amenable to proceed. Surgical consent will need to be obtained after his clearance is reviewed. He is at high risk for continual infection, delayed healing, and amputations. It is also noted he is a high risk anesthesia candidate. He already completed his oral antibiotic course per infectious disease recommendations . The infectious disease follow-up will proceed as scheduled. He has completed course of oral antibiotics and has responded well. if infection returns, then IV antibiotics will be initiated. To continue to eat and take meal supplements as tolerated; he understands this is important for healing potential. [place] prescription was previously provided and he was advised on proper use. To keep pressure off this ulcer by avoiding lying on his right lateral leg. To reduce unnecessary pressure by wearing a light Tubigrip compression garment. To continue CAM Walker weight-bear as tolerated with assistive device as needed. [place] heel lifts were added to the cam walker previously to accommodate his plantarflex dropfoot position and contraction. He is tolerating this immobilization device for long-term use. I recommended and offered an ankle foot orthotic for the right lower extremity in combination with extra-depth shoes. A prescription was provided for antibiotic at this time. I recommended a more open leg frame to avoid pressure on the ulcer site. I am also open to consider heel lift or a spring-loaded component or a patellar tendon bearing component to address his contraction that is progressively turned into a more rigid condition. His order requisition will be faxing antibiotic and he will be called to schedule for casting. Updated noninvasive vascular studies and venous reflux studies were initially ordered. Then, Dr. Yarbrough's intervention was noted including right leg angioplasty and initiation of thrombolysis on July 03, 2018, right leg angioplasty and thrombolytic check performed on July 04, 2018, and right leg fasciotomy and wound VAC placement performed on July 07, 2018. At this time, the noninvasive vascular studies are not recommended or needed given he has had a previous stent placed. It is noted he will likely have a Doppler performed when he follows up visit with his vascular surgeon. He recently had a follow-up visit within the last week with Dr. Yarbrough and his notes will be requested. The patient reports it went well and additional intervention is not recommended at this time. . To return to the wound healing center 1 week or call sooner if is any questions or concerns.
[2018-10-15 13:43] VITALS: BP 129/70; PULSE 79; RESP 18; TEMP 37.1; BMI 22.4
--- NOTE | 2018-10-15 17:07 | PCM.WC.PN ---
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 Status: Chronic Current Visit: Yes Code(s): L97.913 - Non-pressure chronic ulcer of unspecified part of right lower leg with necrosis of muscle (2) Other specified peripheral vascular diseases Status: Chronic Current Visit: Yes Code(s): I73.89 - Other specified peripheral vascular diseases (3) Delayed wound healing Status: Chronic Current Visit: Yes Code(s): T14.8XXD - Other injury of unspecified body region, subsequent encounter (4) Malnutrition Status: Chronic Current Visit: Yes Code(s): E46 - Unspecified protein-calorie malnutrition (5) Peripheral arterial occlusive disease Status: Chronic Current Visit: Yes Code(s): I77.9 - Disorder of arteries and arterioles, unspecified Comment: Ischemic RLE 07/04/18 (6) Other acquired deformities of right foot Status: Chronic Current Visit: Yes Code(s): M21.6X1 - Other acquired deformities of right foot (7) Foot drop, right Status: Chronic Current Visit: Yes Code(s): M21.371 - Foot drop, right foot (8) Difficulty walking Status: Chronic Current Visit: Yes Code(s): R26.2 - Difficulty in walking, not elsewhere classified (9) Pain in right lower leg Status: Chronic Current Visit: Yes Code(s): M79.661 - Pain in right lower leg Type of Wound Date of Service: 10/15/18 Chief Complaint: Leg ulcer right History of Wound: Mr. Sinclair is a 68 year old with past medical history of atrial fibrillation, peripheral arterial disease status post left lower extremity stenting and tobacco abuse presents for follow-up of right leg ulcer. He had a reported deep venous thrombosis of the right leg and developed subsequent compartment syndrome previously. He underwent surgical fasciotomy on July 07 at [facility] and has a resultant chronic wound. He had a recent surgical debridement and serial application of advanced wound care product with delayed closure and application of wound VAC on 08/15/2018 and 08/19/2018, respectively. Essentially he has had a chronic ulcer with exposed necrotic muscle since the end of June 2018. He denies fever, chill, nausea, vomiting, chest pain, shortness of breath. He denies odor. He has mild continued pain to the ulcer site and contracted right ankle and foot that has progressively developed as a sequela. He has been trying to use the cam walker however this is heavy for him to utilize. He is scheduled for surgical debridement with versa jet and application of advanced wound healing product and wound VAC this Saturday at [facility]. He is amendable to try to proceed with the procedure under local anesthetic. Progress of Wound: -Healed proximal ulcer aspect. -distal aspect with continual exposed tendon with devitalization and lack of progress - Physical Exam Vital Signs Temp Pulse Resp BP 98.7 F 79 18 129/70 H 10/15/18 13:43 10/15/18 13:43 10/15/18 13:43 10/15/18 13:43 General: Alert, Oriented x3, Cooperative HEENT: Atraumatic Extremities: No cyanosis, Capillary Refill Less than 3 Seconds - All toes right lower extremity, No Calf Tenderness - Negative Yen and Watts sign right lower extremity, Diminished Peripheral Pulses, Edema - Decreased right leg, - - Compartments are soft to palpate to the right foot ankle and leg. There is some contraction in a plantarflexed position to the right foot upon the ankle and this is noted with passive range of motion. He is unable to perform active dorsiflexion or eversion and this is consistent with loss of functionality of the anterior compartment muscles which appear to be involved with his chronic ulcer site Skin: Ulcer/ Wound - there is no odor today. There is no purulence, erythema, streaking or probe to bone. There is exposed devitalized tendon however this is not with janel necrosis. The peripheral skin is hairless and atrophic. The proximal previous ulcer site is healing well and continues to remodel. Wound Measurements and Assessment WC - Nurse 1 - General Ulcer Measurement Start: 10/08/18 13:11 Freq: Status: Active Protocol: Activity Type Activity Date Activity User E-Sign Co-Sign Detail Recorded Client Recorded Date Recorded By Document 10/15/18 13:43 DL [id number] 10/15/18 13:49 DL 10/15/18 13:43 Wound Center Nurse 1 [Ulcer Assessment] #2 right lower leg -Combined with other wound No -Current Size (cm) - Length 6.9 -Current Size (cm) - Width 1 -Current Size (cm) - Depth 1 -Total Square Cm 6.9 -Photo Taken No -Epithelialization None Present -Tunneling Yes -Tunneling Position (O'clock) 12 -Tunneling Distance (cm) 2.8 -Tunneling Position #2 (O'clock) 6 -Tunneling Distance #2 (cm) 1.8 -Undermining/Tunneling No -Circular Undermining No -Exudate Amt Medium -Exudate Type Serosanguineous -Wound Margin Distinct, Outline Attached -Granulation Amt None Present (0 %) -Slough/Fibrin Yes -Necrosis Amt Large (67-100%) -Necrotic Tissue Type Adherent Slough -Structure Exposed N/A -Texture (Denisa-wound Skin Appearance) Assessed Scarring -Moisture (Denisa-wound Skin Appearance Assessed ) -Color (Denisa-wound Skin Appearance) Assessed -Temperature (Denisa-wound Skin No Abnormality Appearance) (Pt Warm) -Tenderness on Palpation (Denisa-wound No Skin Appearance) -Ulcer Cleansing Rinsed/ Irrigated with Saline -Foul Odor after Cleansing No -Anesthetic Used 5% Lidocaine Gel WC - Nurse 2 - General Ulcer CM Notes Start: 10/08/18 13:11 Freq: Status: Active Protocol: Activity Type Activity Date Activity User E-Sign Co-Sign Detail Recorded Client Recorded Date Recorded By Document 10/15/18 14:20 AN [id number] 10/15/18 14:22 AN 10/15/18 14:20 Wound Center Nurse 2 [Procedure/Treatment] -Time 14:20 -Correct Patient Yes -Correct Side, Site, Position Yes -Correct Procedure Yes -Procedure Performed Yes -Type of Procedure Debridement -Clinical Debridement Subcutaneous Selective -Post Debridement Size (cm) - Length 7.0 -Post Debridement Size (cm) - Width 1.1 -Post Debridement Size (cm) - Depth 1.0 -Total Square Cm 7.70 -Wound/Ulcer Outcome Not Healed -Ulcer Cleansing Rinsed/ Irrigated with Saline -Foul Odor after Cleansing No -Bioengineered Tissue No -Bleeding Controlled with Pressure -Offloading Yes -Type of Offloading Camwalker -Treatment Response Procedure Tolerated Well [See Physician Procedure note for Specifics] Pain Scale: 0-10 Numeric [Pain] -Is Patient Pain Free? Yes Musculoskeletal: No Tenderness to Palpation of Joints or Extremities, Muscle Wasting Neurological: Sensory exam intact to light touch and pain Psych/Mental Status: Normal Affect, Appropriate Debridement Note Post-Debridement Measurements/Treatment WC - Nurse 2 - General Ulcer CM Notes Start: 10/08/18 13:11 Freq: Status: Active Protocol: Activity Type Activity Date Activity User E-Sign Co-Sign Detail Recorded Client Recorded Date Recorded By Document 10/08/18 13:28 AN [id number] 10/08/18 13:30 AN Document 10/15/18 14:20 AN [id number] 10/15/18 14:22 AN 10/08/18 10/15/18 13:28 14:20 Wound Center Nurse 2 #2 right lower leg -Time 13:28 14:20 -Correct Patient Yes Yes -Correct Side, Site, Position Yes Yes -Correct Procedure Yes Yes -Procedure Performed Yes Yes -Type of Procedure Debridement Debridement -Clinical Debridement Subcutaneous Subcutaneous Selective -Post Debridement Size (cm) - Length 6.9 7.0 -Post Debridement Size (cm) - Width 1.7 1.1 -Post Debridement Size (cm) - Depth 0.7 1.0 -Total Square Cm 11.73 7.70 -Wound/Ulcer Outcome Not Healed Not Healed -Ulcer Cleansing Rinsed/ Rinsed/ Irrigated with Irrigated with Saline Saline -Foul Odor after Cleansing No No -Bioengineered Tissue No No -Bleeding Controlled with Pressure Pressure -Offloading Yes Yes -Type of Offloading Camwalker Camwalker -Treatment Response Procedure Procedure Tolerated Well Tolerated Well Pain Scale: 0-10 Numeric Is Patient Pain Free? Yes Yes Wound debrided: anterior lateral leg Laterality: Right Type of Debridement: Excisional debridement Anesthesia Used: 5% Lidocaine Gel Depth: in the subcutaneous layer Percentage of wound debrided: 100 Instrument Used: #15 blade Tissue Removed: fibrous, devitalized subcutaneous and tendon, biofilm, slough Severity: Necrosis of Muscle Amount of bleeding with debridement: Mild Bleeding Controlled with: Pressure Patient tolerated procedure well Assessment/Plan Active Problems (Last Reviewed 09/19/18 @ 09:44 by Rosa Isela Pat) Other acquired deformities of right foot (Chronic) Foot drop, right (Chronic) Difficulty walking (Chronic) Pain in right lower leg (Chronic) Other specified peripheral vascular diseases (Chronic) Delayed wound healing (Chronic) Malnutrition (Chronic) 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 Recent infection resolved. Peripheral vascular disease. Leg edema and rule out venous insufficiency. Malnutrition. Recent tobacco use. Walking difficulty. Pain in right limb lower. Contraction right lower extremity at ankle level. Right dropfoot Plan: I reviewed and discussed his case. Debridement was performed today as noted and he tolerated as well. To change dressing daily with iodoform gauze packing to the distal and proximal aspect daily. Home health orders will be placed. I recommend application of advanced wound care product, epi cord. authorization was initiated and this was not approved for the outpatient setting. I recommend surgical debridement in the operating room with application of advanced wound healing product. This is medically necessary to save his limb. The debridement will be more aggressive than performed in the outpatient setting with local anesthetic and he will plan to take an antianxiety medication prior to the procedure. A prescription for Ativan was prescribed today; he was advised to take 1 mg approximately 1 hour prior to the scheduled 7:30 AM start him on Saturday morning. He already has Percocet at home and he was advised to take no more than 1 prior to the procedure. The indications, planned procedure, possible benefits, risks, anticipated healing time and management were discussed. He is amenable to proceed. Surgical consent was obtained today. The indications, planned procedure, possible benefits, risks, complications, and anticipated healing time management were discussed in detail with the patient. He understands and elects to proceed. No guarantees were made. He understands that risks and complications include but are not limited to the following: Continued infection, continued delayed or nonhealing, scarring, swelling, pain, complex regional pain syndrome, additional blood clots, loss of function including the dropfoot, allergic reaction, loss of limb or life. The he is at high risk for continual infection, delayed healing, and amputations. It is also noted he is a high risk anesthesia candidate. He already completed his oral antibiotic course per infectious disease recommendations . The infectious disease follow-up will proceed as scheduled. He has completed course of oral antibiotics and has responded well. if infection returns, then IV antibiotics will be initiated. To continue to eat and take meal supplements as tolerated; he understands this is important for healing potential. [place] prescription was previously provided and he was advised on proper use. To keep pressure off this ulcer by avoiding lying on his right lateral leg. To reduce unnecessary pressure by wearing a light Tubigrip compression garment. To continue CAM Walker weight-bear as tolerated with assistive device as needed. [place] heel lifts were previously added to the cam walker previously to accommodate his plantarflex dropfoot position and contraction. He is tolerating this immobilization device for long-term use. I recommended and offered an ankle foot orthotic for the right lower extremity in combination with extra-depth shoes. A prescription was provided for antibiotic at this time. I recommended a more open leg frame to avoid pressure on the ulcer site. I am also open to consider heel lift or a spring-loaded component or a patellar tendon bearing component to address his contraction that is progressively turned into a more rigid condition. His order requisition was faxed to the antibiotic, and he will be called to schedule for casting. Updated noninvasive vascular studies and venous reflux studies were initially ordered. Then, Dr. Yarbrough's intervention was noted including right leg angioplasty and initiation of thrombolysis on July 03, 2018, right leg angioplasty and thrombolytic check performed on July 04, 2018, and right leg fasciotomy and wound VAC placement performed on July 07, 2018. At this time, the noninvasive vascular studies are not recommended or needed given he has had a previous stent placed. It is noted he will likely have a Doppler performed when he follows up visit with his vascular surgeon. He recently had a previous follow-up exam with Dr. Yarbrough and his notes will be requested. The patient reports it went well and additional intervention is not recommended at this time. I answered all his questions.
[2018-10-22 10:27] VITALS: BP 134/73; PULSE 86; RESP 18; TEMP 37.6; BMI 22.4
--- NOTE | 2018-10-22 14:53 | PCM.WC.PN ---
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 Status: Chronic Current Visit: Yes Code(s): L97.913 - Non-pressure chronic ulcer of unspecified part of right lower leg with necrosis of muscle (2) Other specified peripheral vascular diseases Status: Chronic Current Visit: Yes Code(s): I73.89 - Other specified peripheral vascular diseases (3) Delayed wound healing Status: Chronic Current Visit: Yes Code(s): T14.8XXD - Other injury of unspecified body region, subsequent encounter (4) Malnutrition Status: Chronic Current Visit: Yes Code(s): E46 - Unspecified protein-calorie malnutrition (5) Peripheral arterial occlusive disease Status: Chronic Current Visit: Yes Code(s): I77.9 - Disorder of arteries and arterioles, unspecified Comment: Ischemic RLE 07/04/18 (6) Other acquired deformities of right foot Status: Chronic Current Visit: Yes Code(s): M21.6X1 - Other acquired deformities of right foot (7) Foot drop, right Status: Chronic Current Visit: Yes Code(s): M21.371 - Foot drop, right foot (8) Difficulty walking Status: Chronic Current Visit: Yes Code(s): R26.2 - Difficulty in walking, not elsewhere classified (9) Pain in right lower leg Status: Chronic Current Visit: Yes Code(s): M79.661 - Pain in right lower leg Type of Wound Date of Service: 10/22/18 Chief Complaint: Leg ulcer right History of Wound: Mr. Sinclair is a 68 year old with past medical history of atrial fibrillation, peripheral arterial disease status post left lower extremity stenting and tobacco abuse presents for follow-up of right leg ulcer. He had a reported deep venous thrombosis of the right leg and developed subsequent compartment syndrome previously. He underwent surgical fasciotomy on July 07 at [facility] and has a resultant chronic wound. He had a recent surgical debridement and serial application of advanced wound care product with delayed closure and application of wound VAC on 08/15/2018 and 08/19/2018, respectively. He also had a tendon debridement with versa jet application of amnio fill and epi cord again and application of sarah wound VAC this past Saturday. He is kept this clean and intact. essentially he has had a chronic ulcer with exposed necrotic muscle since the end of June 2018. He denies fever, chill, nausea, vomiting, chest pain, shortness of breath. He denies odor. He has mild continued pain to the ulcer site and contracted right ankle and foot that has progressively developed as a sequela. He has been trying to use the cam walker for immobilization. He has minimal leg pain since his procedure and his alert light recently came on late in the middle the night. Progress of Wound: -Healed proximal ulcer aspect. -distal aspect stable - Physical Exam Vital Signs Temp Pulse Resp BP 99.6 F H 86 18 134/73 H 10/22/18 10:27 10/22/18 10:27 10/22/18 10:10/22/18 10:27 General: Alert, Oriented x3, Cooperative Extremities: No cyanosis, Capillary Refill Less than 3 Seconds, No Calf Tenderness - Negative Yen and Watts sign right, Diminished Peripheral Pulses, Edema - Mild right, - - Mild pain on palpation to ulcer site Skin: Ulcer/ Wound - No purulence on expression no odor, erythema, streaking, janel necrosis or bogginess Wound Measurements and Assessment WC - Nurse 1 - General Ulcer Measurement Start: 10/08/18 13:11 Freq: Status: Active Protocol: Activity Type Activity Date Activity User E-Sign Co-Sign Detail Recorded Client Recorded Date Recorded By Document 10/22/18 10: [id number] 10/22/18 10:28 BLANKA 10/22/18 10:27 Wound Center Nurse 1 [Ulcer Assessment] #2 right lower leg -Photo Taken No -Epithelialization Small 1-33% -Tunneling No -Undermining/Tunneling No -Circular Undermining No -Exudate Amt Medium -Exudate Type Serosanguineous -Wound Margin Flat & Intact -Granulation Amt Medium (34-66%) -Granulation Quality Red -Slough/Fibrin Yes -Necrosis Amt Small (1-33%) -Necrotic Tissue Type Adherent Slough -Structure Exposed N/A -Texture (Denisa-wound Skin Appearance) Assessed Localized Edema -Moisture (Denisa-wound Skin Appearance Assessed ) Dry/Scaly -Color (Denisa-wound Skin Appearance) Assessed -Temperature (Denisa-wound Skin No Abnormality Appearance) (Pt Warm) -Tenderness on Palpation (Denisa-wound No Skin Appearance) -Ulcer Cleansing Rinsed/ Irrigated with Saline -Foul Odor after Cleansing No [Edema Assessment] -Lower Limb Edema Present Yes -Right Calf (cm) 31.0 -Right Ankle (cm) 20.3 WC - Nurse 2 - General Ulcer CM Notes Start: 10/08/18 13:11 Freq: Status: Active Protocol: Activity Type Activity Date Activity User E-Sign Co-Sign Detail Recorded Client Recorded Date Recorded By Document 10/22/18 11:08 AN [id number] 10/22/18 11:16 AN 10/22/18 11:08 Wound Center Nurse 2 [Procedure/Treatment] #2 right lower leg -Time 11:12 -Procedure Performed No -Post Debridement Size (cm) - Length 0.1 -Post Debridement Size (cm) - Width 0.1 -Post Debridement Size (cm) - Depth 0.1 -Total Square Cm 0.01 -Wound/Ulcer Outcome Not Healed -Bioengineered Tissue No -Offloading Yes -Type of Offloading Camwalker -Treatment Response Procedure Tolerated Well [See Physician Procedure note for Specifics] Pain Scale: 0-10 Numeric [Pain] -Is Patient Pain Free? Yes Musculoskeletal: No Tenderness to Palpation of Joints or Extremities, Muscle Wasting, - - Compartments soft to palpate bilateral lower extremities. There is no bogginess or fluctuance on palpation Neurological: Sensory exam intact to light touch and pain Psych/Mental Status: Normal Affect, Appropriate Debridement Note Post-Debridement Measurements/Treatment WC - Nurse 2 - General Ulcer CM Notes Start: 10/08/18 13:11 Freq: Status: Active Protocol: Activity Type Activity Date Activity User E-Sign Co-Sign Detail Recorded Client Recorded Date Recorded By Document 10/08/18 13:28 AN [id number] 10/08/18 13:30 AN Document 10/15/18 14:20 AN [id number] 10/15/18 14:22 AN Document 10/22/18 11:08 AN [id number] 10/22/18 11:16 AN 10/08/18 10/15/18 10/22/18 13:28 14:20 11:08 Wound Center Nurse 2 #2 right lower leg -Time 13:28 14:20 11:12 -Correct Patient Yes Yes -Correct Side, Site, Position Yes Yes -Correct Procedure Yes Yes -Procedure Performed Yes Yes No -Type of Procedure Debridement Debridement -Clinical Debridement Subcutaneous Subcutaneous Selective -Post Debridement Size (cm) - Length 6.9 7.0 0.1 -Post Debridement Size (cm) - Width 1.7 1.1 0.1 -Post Debridement Size (cm) - Depth 0.7 1.0 0.1 -Total Square Cm 11.73 7.70 0.01 -Wound/Ulcer Outcome Not Healed Not Healed Not Healed -Ulcer Cleansing Rinsed/ Rinsed/ Irrigated with Irrigated with Saline Saline -Foul Odor after Cleansing No No -Bioengineered Tissue No No No -Bleeding Controlled with Pressure Pressure -Offloading Yes Yes Yes -Type of Offloading Camwalker Camwalker Camwalker -Treatment Response Procedure Procedure Procedure Tolerated Well Tolerated Well Tolerated Well Pain Scale: 0-10 Numeric Is Patient Pain Free? Yes Yes Yes No debridement was completed today - Advance wound care products amnio fill and epi cord are secured in place with a sutured Adaptic. Additional debridement will be considered next week. 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 Recent infection resolved. Peripheral vascular disease. Leg edema and rule out venous insufficiency. Malnutrition. Recent tobacco use. Walking difficulty. Pain in right limb lower. Contraction right lower extremity at ankle level. Right dropfoot Plan: I reviewed and discussed his case. The overlying Adaptic with advanced wound care product was left intact. The debridement will be considered again next week. He was reassured there are no signs of local infection at this time. To change the outer dressing with saline gauze wet-to-dry and he will return for nursing visit on Saturday to have an updated sarah disposable wound VAC applied. He understands and elects to proceed. He already completed his oral antibiotic course per infectious disease recommendations. The infectious disease follow-up will proceed as scheduled if any return of the symptoms return; is not noted at this time. To continue to eat and take meal supplements as tolerated; he understands this is important for healing potential. [place] prescription was previously provided and he was advised on proper use. To keep pressure off this ulcer by avoiding lying on his right lateral leg. To reduce unnecessary pressure by wearing a light Tubigrip compression garment. To continue CAM Walker weight-bear as tolerated with assistive device as needed. Floyd heel lifts were previously added to the cam walker previously to accommodate his plantarflex dropfoot position and contraction. He is tolerating this immobilization device for long-term use. I recommended and offered an ankle foot orthotic for the right lower extremity in combination with extra-depth shoes. I recommended a more open leg frame to avoid pressure on the ulcer site. I am also open to consider heel lift or a spring-loaded component or a patellar tendon bearing component to address his contraction that is progressively turned into a more rigid condition. His order was previously faxed to [employer] and his casting session to start treating the device is pending. Updated noninvasive vascular studies and venous reflux studies were initially ordered. Then, Dr. Yarbrough's intervention was noted including right leg angioplasty and initiation of thrombolysis on July 03, 2018, right leg angioplasty and thrombolytic check performed on July 04, 2018, and right leg fasciotomy and wound VAC placement performed on July 07, 2018. At this time, the noninvasive vascular studies are not recommended or needed given he has had a previous stent placed. It is noted he will likely have a Doppler performed when he follows up visit with his vascular surgeon. He recently had a previous follow-up exam with Dr. Yarbrough and his notes will be requested. The patient reports it went well and additional intervention is not recommended at this time. I answered all his questions.
--- NOTE | 2018-10-22 15:01 | PN.PCM_ITS ---
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 Status: Chronic Current Visit: Yes Code(s): L97.913 - Non-pressure chronic ulcer of unspecified part of right lower leg with necrosis of muscle (2) Other specified peripheral vascular diseases Status: Chronic Current Visit: Yes Code(s): I73.89 - Other specified peripheral vascular diseases (3) Delayed wound healing Status: Chronic Current Visit: Yes Code(s): T14.8XXD - Other injury of unspecified body region, subsequent encounter (4) Malnutrition Status: Chronic Current Visit: Yes Code(s): E46 - Unspecified protein- calorie malnutrition (5) Peripheral arterial occlusive disease Status: Chronic Current Visit: Yes Code(s): I77.9 - Disorder of arteries and arterioles, unspecified Comment: Ischemic RLE 07/04/18 (6) Other acquired deformities of right foot Status: Chronic Current Visit: Yes Code(s): M21.6X1 - Other acquired deformities of right foot (7) Foot drop, right Status: Chronic Current Visit: Yes Code(s): M21.371 - Foot drop, right foot (8) Difficulty walking Status: Chronic Current Visit: Yes Code(s): R26.2 - Difficulty in walking, not elsewhere classified (9) Pain in right lower leg Status: Chronic Current Visit: Yes Code(s): M79.661 - Pain in right lower leg Type of Wound Date of Service: 10/22/18 Chief Complaint: Leg ulcer right History of Wound: Mr. Sinclair is a 68 year old with past medical history of atrial fibrillation, peripheral arterial disease status post left lower extremity stenting and tobacco abuse presents for follow-up of right leg ulcer. He had a reported deep venous thrombosis of the right leg and developed subsequent compartment syndrome previously. He underwent surgical fasciotomy on July 07 at [facility] and has a resultant chronic wound. He had a recent surgical debridement and serial application of advanced wound care product with delayed closure and application of wound VAC on 08/15/2018 and 08/19/2018, respectively. He also had a tendon debridement with versa jet application of amnio fill and epi cord again and application of sarah wound VAC this past Saturday. He is kept this clean and intact. essentially he has had a chronic ulcer with exposed necrotic muscle since the end of June 2018. He denies fever, chill, nausea, vomiting, chest pain, shortness of breath. He denies odor. He has mild continued pain to the ulcer site and contracted right ankle and foot that has progressively developed as a sequela. He has been trying to use the cam walker for immobilization. He has minimal leg pain since his procedure and his alert light recently came on late in the middle the night. Progress of Wound: -Healed proximal ulcer aspect. -distal aspect stable - Physical Exam Vital Signs Temp Pulse Resp BP 99.6 F H 86 18 134/73 H 10/22/18 10:27 10/22/18 10:27 10/22/18 10:10/22/18 10:27 General: Alert, Oriented x3, Cooperative Extremities: No cyanosis, Capillary Refill Less than 3 Seconds, No Calf Tenderness - Negative Yen and Watts sign right, Diminished Peripheral Pulses, Edema - Mild right, - - Mild pain on palpation to ulcer site Skin: Ulcer/ Wound - No purulence on expression no odor, erythema, streaking, janel necrosis or bogginess Wound Measurements and Assessment WC - Nurse 1 - General Ulcer Measurement Start: 10/08/18 13:11 Freq: Status: Active Protocol: Activity Type Activity Date Activity User E-Sign Co-Sign Detail Recorded Client Recorded Date Recorded By Document 10/22/18 10: [id number] 10/22/18 10:28 BLANKA 10/22/18 10:27 Wound Center Nurse 1 [Ulcer Assessment] #2 right lower leg -Photo Taken No -Epithelialization Small 1-33% -Tunneling No -Undermining/Tunneling No -Circular Undermining No -Exudate Amt Medium -Exudate Type Serosanguineous -Wound Margin Flat & Intact -Granulation Amt Medium (34-66%) -Granulation Quality Red -Slough/Fibrin Yes -Necrosis Amt Small (1-33%) -Necrotic Tissue Type Adherent Slough -Structure Exposed N/A -Texture (Denisa-wound Skin Appearance) Assessed Localized Edema -Moisture (Denisa-wound Skin Appearance Assessed ) Dry/Scaly -Color (Denisa-wound Skin Appearance) Assessed -Temperature (Denisa-wound Skin No Abnormality Appearance) (Pt Warm) -Tenderness on Palpation (Denisa-wound No Skin Appearance) -Ulcer Cleansing Rinsed/ Irrigated with Saline -Foul Odor after Cleansing No [Edema Assessment] -Lower Limb Edema Present Yes -Right Calf (cm) 31.0 -Right Ankle (cm) 20.3 WC - Nurse 2 - General Ulcer CM Notes Start: 10/08/18 13:11 Freq: Status: Active Protocol: Activity Type Activity Date Activity User E-Sign Co-Sign Detail Recorded Client Recorded Date Recorded By Document 10/22/18 11:08 AN [id number] 10/22/18 11:16 AN 10/22/18 11:08 Wound Center Nurse 2 [Procedure/Treatment] #2 right lower leg -Time 11:12 -Procedure Performed No -Post Debridement Size (cm) - Length 0.1 -Post Debridement Size (cm) - Width 0.1 -Post Debridement Size (cm) - Depth 0.1 -Total Square Cm 0.01 -Wound/Ulcer Outcome Not Healed -Bioengineered Tissue No -Offloading Yes -Type of Offloading Camwalker -Treatment Response Procedure Tolerated Well [See Physician Procedure note for Specifics] Pain Scale: 0-10 Numeric [Pain] -Is Patient Pain Free? Yes Musculoskeletal: No Tenderness to Palpation of Joints or Extremities, Muscle Wasting, - - Compartments soft to palpate bilateral lower extremities. There is no bogginess or fluctuance on palpation Neurological: Sensory exam intact to light touch and pain Psych/Mental Status: Normal Affect, Appropriate Debridement Note Post-Debridement Measurements/Treatment WC - Nurse 2 - General Ulcer CM Notes Start: 10/08/18 13:11 Freq: Status: Active Protocol: Activity Type Activity Date Activity User E-Sign Co-Sign Detail Recorded Client Recorded Date Recorded By Document 10/08/18 13:28 AN [id number] 10/08/18 13:30 AN Document 10/15/18 14:20 AN [id number] 10/15/18 14:22 AN Document 10/22/18 11:08 AN [id number] 10/22/18 11:16 AN 10/08/18 10/15/18 10/22/18 13:28 14:20 11:08 Wound Center Nurse 2 #2 right lower leg -Time 13:28 14:20 11:12 -Correct Patient Yes Yes -Correct Side, Site, Position Yes Yes -Correct Procedure Yes Yes -Procedure Performed Yes Yes No -Type of Procedure Debridement Debridement -Clinical Debridement Subcutaneous Subcutaneous Selective -Post Debridement Size (cm) - Length 6.9 7.0 0.1 -Post Debridement Size (cm) - Width 1.7 1.1 0.1 -Post Debridement Size (cm) - Depth 0.7 1.0 0.1 -Total Square Cm 11.73 7.70 0.01 -Wound/Ulcer Outcome Not Healed Not Healed Not Healed -Ulcer Cleansing Rinsed/ Rinsed/ Irrigated with Irrigated with Saline Saline -Foul Odor after Cleansing No No -Bioengineered Tissue No No No -Bleeding Controlled with Pressure Pressure -Offloading Yes Yes Yes -Type of Offloading Camwalker Camwalker Camwalker -Treatment Response Procedure Procedure Procedure Tolerated Well Tolerated Well Tolerated Well Pain Scale: 0-10 Numeric Is Patient Pain Free? Yes Yes Yes No debridement was completed today - Advance wound care products amnio fill and epi cord are secured in place with a sutured Adaptic. Additional debridement will be considered next week. 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 Recent infection resolved. Peripheral vascular di sease. Leg edema and rule out venous insufficiency. Malnutrition. Recent tobacco use. Walking difficulty. Pain in right limb lower. Contraction right lower extremity at ankle level. Right dropfoot Plan: I reviewed and discussed his case. The overlying Adaptic with advanced wound care product was left intact. The debridement will be considered again next week. He was reassured there are no signs of local infection at this time. To change the outer dressing with saline gauze wet-to-dry and he will return for nursing visit on Saturday to have an updated sarah disposable wound VAC applied. He understands and elects to proceed. He already completed his oral antibiotic course per infectious disease recommendations. The infectious disease follow-up will proceed as scheduled if any return of the symptoms return; is not noted at this time. To continue to eat and take meal supplements as tolerated; he understands this is important for healing potential. [place] prescription was previously provided and he was advised on proper use. To keep pressure off this ulcer by avoiding lying on his right lateral leg. To reduce unnecessary pressure by wearing a light Tubigrip compression garment. To continue CAM Walker weight-bear as tolerated with assistive device as needed. [place] heel lifts were previously added to the cam walker previously to accommodate his plantarflex dropfoot position and contraction. He is tolerating this immobilization device for long-term use. I recommended and offered an ankle foot orthotic for the right lower extremity in combination with extra- depth shoes. I recommended a more open leg frame to avoid pressure on the ulcer site. I am also open to consider heel lift or a spring-loaded component or a patellar tendon bearing component to address his contraction that is progressively turned into a more rigid condition. His order was previously faxed to [employer] and his casting session to start treating the device is pending. Updated noninvasive vascular studies and venous reflux studies were initially ordered. Then, Dr. Yarbrough's intervention was noted including right leg angioplasty and initiation of thrombolysis on July 03, 2018, right leg angioplasty and thrombolytic check performed on July 04, 2018, and right leg fasciotomy and wound VAC placement performed on July 07, 2018. At this time, the noninvasive vascular studies are not recommended or needed given he has had a previous stent placed. It is noted he will likely have a Doppler performed when he follows up visit with his vascular surgeon. He recently had a previous follow-up exam with Dr. Yarbrough and his notes will be requested. The patient reports it went well and additional intervention is not recommended at this time. I answered all his questions.
[2018-10-24 12:41] VITALS: BP 121/74; PULSE 77; RESP 18; TEMP 36.5; BMI 22.4
--- NOTE | 2018-10-24 12:42 | WC ---
RLE wound covered with adaptic and steristrips . wound not measured or uncovered
[2018-10-29 10:39] VITALS: BP 128/94; PULSE 74; RESP 18; TEMP 36.8; BMI 22.4
--- NOTE | 2018-10-29 12:43 | PCM.WC.PN ---
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 Status: Chronic Current Visit: Yes Code(s): L97.913 - Non-pressure chronic ulcer of unspecified part of right lower leg with necrosis of muscle (2) Other specified peripheral vascular diseases Status: Chronic Current Visit: Yes Code(s): I73.89 - Other specified peripheral vascular diseases (3) Delayed wound healing Status: Chronic Current Visit: Yes Code(s): T14.8XXD - Other injury of unspecified body region, subsequent encounter (4) Malnutrition Status: Chronic Current Visit: Yes Code(s): E46 - Unspecified protein-calorie malnutrition (5) Peripheral arterial occlusive disease Status: Chronic Current Visit: Yes Code(s): I77.9 - Disorder of arteries and arterioles, unspecified Comment: Ischemic RLE 07/04/18 (6) Other acquired deformities of right foot Status: Chronic Current Visit: Yes Code(s): M21.6X1 - Other acquired deformities of right foot (7) Foot drop, right Status: Chronic Current Visit: Yes Code(s): M21.371 - Foot drop, right foot (8) Difficulty walking Status: Chronic Current Visit: Yes Code(s): R26.2 - Difficulty in walking, not elsewhere classified (9) Pain in right lower leg Status: Chronic Current Visit: Yes Code(s): M79.661 - Pain in right lower leg Type of Wound Date of Service: 10/29/18 Chief Complaint: Leg ulcer right History of Wound: Mr. Sinclair is a 68 year old with past medical history of atrial fibrillation, peripheral arterial disease status post left lower extremity stenting and tobacco abuse presents for follow-up of right leg ulcer. He had a reported deep venous thrombosis of the right leg and developed subsequent compartment syndrome previously. He underwent surgical fasciotomy on July 07 at [facility] and has a resultant chronic wound. He had a recent surgical debridement and serial application of advanced wound care product with delayed closure and application of wound VAC on 08/15/2018 and 08/19/2018, respectively. He also had a tendon debridement with versa jet application of amnio fill and epi cord again and application of sarah wound VAC about 2 weeks ago. He is kept this clean and intact . essentially he has had a chronic ulcer with exposed necrotic muscle since the end of June 2018. He denies fever, chill, nausea, vomiting, chest pain, shortness of breath. He denies odor. He has mild continued pain to the ulcer site and contracted right ankle and foot that has progressively developed as a sequela. He has been trying to use the cam walker for immobilization. Progress of Wound: -Healed proximal ulcer aspect. -distal aspect improving - Physical Exam Vital Signs Temp Pulse Resp BP 98.3 F 74 18 128/94 H 10/29/18 10:39 10/29/18 10:39 10/29/18 10:39 10/29/18 10:39 General: Alert, Oriented x3, Cooperative Extremities: No cyanosis, Capillary Refill Less than 3 Seconds, No Calf Tenderness - Negative Yen and Watts right and compartments are soft to palpate the right lower extremity, Diminished Peripheral Pulses, Edema Skin: Ulcer/ Wound - No purulence, erythema, streaking, odor, or infection Wound Measurements and Assessment WC - Nurse 1 - General Ulcer Measurement Start: 10/08/18 13:11 Freq: Status: Active Protocol: Activity Type Activity Date Activity User E-Sign Co-Sign Detail Recorded Client Recorded Date Recorded By Document 10/29/18 10:39 MT [id number] 10/29/18 10:45 ID 10/29/18 10:39 Wound Center Nurse 1 [Ulcer Assessment] #2 right lower leg -Current Size (cm) - Length 0.1 -Current Size (cm) - Width 0.1 -Current Size (cm) - Depth 0.1 -Total Square Cm 0.01 -Exudate Amt Medium -Exudate Type Purulent -Wound Margin Flat & Intact -Granulation Amt Large (67-100%) -Granulation Quality [place] Red -Texture (Denisa-wound Skin Appearance) Assessed -Moisture (Denisa-wound Skin Appearance Assessed ) Maceration -Color (Denisa-wound Skin Appearance) Assessed -Temperature (Denisa-wound Skin No Abnormality Appearance) (Pt Warm) -Tenderness on Palpation (Denisa-wound No Skin Appearance) -Ulcer Cleansing Wound Cleanser -Foul Odor after Cleansing No -Anesthetic Used 4% Lidocaine Solution WC - Nurse 2 - General Ulcer CM Notes Start: 10/08/18 13:11 Freq: Status: Active Protocol: Activity Type Activity Date Activity User E-Sign Co-Sign Detail Recorded Client Recorded Date Recorded By Document 10/29/18 11:11 AN [id number] 10/29/18 11:17 AN 05/22/19 11:11 Wound Center Nurse 2 [Procedure/Treatment] -Time 11:13 -Correct Patient Yes -Correct Side, Site, Position Yes -Correct Procedure Yes -Procedure Performed Yes -Type of Procedure Debridement -Clinical Debridement Subcutaneous -Post Debridement Size (cm) - Length 0.2 -Post Debridement Size (cm) - Width 0.2 -Post Debridement Size (cm) - Depth 0.1 -Total Square Cm 0.04 -Wound/Ulcer Outcome Not Healed -Treatment Response Procedure Tolerated Well [See Physician Procedure note for Specifics] Pain Scale: 0-10 Numeric [Pain] -Is Patient Pain Free? Yes Musculoskeletal: No Tenderness to Palpation of Joints or Extremities, Muscle Wasting Neurological: Sensory exam intact to light touch and pain, - Psych/Mental Status: Normal Affect, Appropriate Debridement Note Post-Debridement Measurements/Treatment WC - Nurse 2 - General Ulcer CM Notes Start: 10/08/18 13:11 Freq: Status: Active Protocol: Activity Type Activity Date Activity User E-Sign Co-Sign Detail Recorded Client Recorded Date Recorded By Document 10/08/18 13:28 AN [id number] 10/08/18 13:30 AN Document 10/15/18 14:20 AN [id number] 10/15/18 14:22 AN Document 10/22/18 11:08 AN [id number] 10/22/18 11:16 AN Document 10/29/18 11:11 AN [id number] 10/29/18 11:17 AN 10/08/18 10/15/18 10/22/18 13:28 14:20 11:08 Wound Center Nurse 2 #2 right lower leg -Time 13:28 14:20 11:12 -Correct Patient Yes Yes -Correct Side, Site, Position Yes Yes -Correct Procedure Yes Yes -Procedure Performed Yes Yes No -Type of Procedure Debridement Debridement -Clinical Debridement Subcutaneous Subcutaneous Selective -Post Debridement Size (cm) - Length 6.9 7.0 0.1 -Post Debridement Size (cm) - Width 1.7 1.1 0.1 -Post Debridement Size (cm) - Depth 0.7 1.0 0.1 -Total Square Cm 11.73 7.70 0.01 -Wound/Ulcer Outcome Not Healed Not Healed Not Healed -Ulcer Cleansing Rinsed/ Rinsed/ Irrigated with Irrigated with Saline Saline -Foul Odor after Cleansing No No -Bioengineered Tissue No No No -Bleeding Controlled with Pressure Pressure -Offloading Yes Yes Yes -Type of Offloading Camwalker Camwalker Camwalker -Treatment Response Procedure Procedure Procedure Tolerated Well Tolerated Well Tolerated Well Pain Scale: 0-10 Numeric Is Patient Pain Free? Yes Yes Yes 10/29/18 11:11 Wound Center Nurse 2 #2 right lower leg -Time 11:13 -Correct Patient Yes -Correct Side, Site, Position Yes -Correct Procedure Yes -Procedure Performed Yes -Type of Procedure Debridement -Clinical Debridement Subcutaneous -Post Debridement Size (cm) - Length 0.2 -Post Debridement Size (cm) - Width 0.2 -Post Debridement Size (cm) - Depth 0.1 -Total Square Cm 0.04 -Wound/Ulcer Outcome Not Healed -Ulcer Cleansing -Foul Odor after Cleansing -Bioengineered Tissue -Bleeding Controlled with -Offloading -Type of Offloading -Treatment Response Procedure Tolerated Well Pain Scale: 0-10 Numeric Is Patient Pain Free? Yes Wound debrided: lateral leg Laterality: Right Type of Debridement: Excisional debridement Anesthesia Used: 5% Lidocaine Gel Depth: in the subcutaneous layer Percentage of wound debrided: 100 Instrument Used: #15 blade Tissue Removed: fibrous, devitalized subcutaneous, biofilm, slough Severity: Fat Layer Exposed Amount of bleeding with debridement: Mild Bleeding Controlled with: Pressure Patient tolerated procedure well Assessment/Plan Active Problems (Last Reviewed 09/19/18 @ 09:44 by Rosa Isela Pat) Other acquired deformities of right foot (Chronic) Foot drop, right (Chronic) Difficulty walking (Chronic) Pain in right lower leg (Chronic) Other specified peripheral vascular diseases (Chronic) Delayed wound healing (Chronic) Malnutrition (Chronic) 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 Recent infection resolved. Peripheral vascular disease. Leg edema and rule out venous insufficiency. Malnutrition. Recent tobacco use. Walking difficulty. Pain in right limb lower. Contraction right lower extremity at ankle level. Right dropfoot Plan: I reviewed and discussed his case. The overlying Adaptic with advanced wound care product was left intact. The debridement will be considered again next week. He was reassured there are no signs of local infection at this time. To change the outer dressing with Adaptic and saline with good. Additional prior authorization for sarah wound VAC application is pending. He understands and elects to proceed. He already completed his oral antibiotic course per infectious disease recommendations. The infectious disease follow-up will proceed as scheduled if any return of the symptoms return; is not noted at this time. To continue to eat and take meal supplements as tolerated; he understands this is important for healing potential. [place] prescription was previously provided and he was advised on proper use. To keep pressure off this ulcer by avoiding lying on his right lateral leg. To reduce unnecessary pressure by wearing a light Tubigrip compression garment. To continue CAM Walker weight-bear as tolerated with assistive device as needed. [place] heel lifts were previously added to the cam walker previously to accommodate his plantarflex dropfoot position and contraction. He is tolerating this immobilization device for long-term use. I recommended and offered an ankle foot orthotic for the right lower extremity in combination with extra-depth shoes. I recommended a more open leg frame to avoid pressure on the ulcer site. I am also open to consider heel lift or a spring-loaded component or a patellar tendon bearing component to address his contraction that is progressively turned into a more rigid condition. His order was previously faxed to [employer] and his casting session to start treating the device is pending. Updated noninvasive vascular studies and venous reflux studies were initially ordered. Then, Dr. Yarbrough's intervention was noted including right leg angioplasty and initiation of thrombolysis on July 03, 2018, right leg angioplasty and thrombolytic check performed on July 04, 2018, and right leg fasciotomy and wound VAC placement performed on July 07, 2018. At this time, the noninvasive vascular studies are not recommended or needed given he has had a previous stent placed. It is noted he will likely have a Doppler performed when he follows up visit with his vascular surgeon. He recently had a previous follow-up exam with Dr. Yarbrough and his notes will be requested. The patient reports it went well and additional intervention is not recommended at this time. I answered all his questions.
[2018-11-05 12:06] VITALS: BP 117/76; PULSE 71; RESP 18; TEMP 36.3; BMI 22.4
--- NOTE | 2018-11-05 16:30 | PN.PCM_ITS ---
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 Status: Chronic Current Visit: Yes Code(s): L97.913 - Non-pressure chronic ulcer of unspecified part of right lower leg with necrosis of muscle (2) Other specified peripheral vascular diseases Status: Chronic Current Visit: Yes Code(s): I73.89 - Other specified peripheral vascular diseases (3) Delayed wound healing Status: Chronic Current Visit: Yes Code(s): T14.8XXD - Other injury of unspecified body region, subsequent encounter (4) Malnutrition Status: Chronic Current Visit: Yes Code(s): E46 - Unspecified protein- calorie malnutrition (5) Peripheral arterial occlusive disease Status: Chronic Current Visit: Yes Code(s): I77.9 - Disorder of arteries and arterioles, unspecified Comment: Ischemic RLE 07/04/18 (6) Other acquired deformities of right foot Status: Chronic Current Visit: Yes Code(s): M21.6X1 - Other acquired deformities of right foot (7) Foot drop, right Status: Chronic Current Visit: Yes Code(s): M21.371 - Foot drop, right foot (8) Difficulty walking Status: Chronic Current Visit: Yes Code(s): R26.2 - Difficulty in walking, not elsewhere classified (9) Pain in right lower leg Status: Chronic Current Visit: Yes Code(s): M79.661 - Pain in right lower leg Type of Wound Date of Service: 11/05/18 Chief Complaint: Leg ulcer right History of Wound: Mr. Choe is a 68 year old with past medical history of atrial fibrillation, peripheral arterial disease status post left lower extremity stenting and tobacco abuse presents for follow-up of right leg ulcer. He had a reported deep venous thrombosis of the right leg and developed subsequent compartment syndrome previously. He underwent surgical fasciotomy on July 07 at [facility] and has a resultant chronic wound. He had a recent surgical debridement and serial application of advanced wound care product with delayed closure and application of wound VAC on 08/15/2018 and 08/19/2018, respectively. He also had a tendon debridement with versa jet application of amnio fill and epi cord again and application of sarah wound VAC about 2 weeks ago. He is kept this clean and intact . essentially he has had a chronic ulcer with exposed necrotic muscle since the end of June 2018. He denies fever, chill, nausea, vomiting, chest pain, shortness of breath. He denies odor. He has decreased but continued pain to the ulcer site and contracted right ankle and foot that has progressively developed as a sequela. He has been trying to use the cam walker for immobilization. He is with his daughter today. Progress of Wound: -Healed proximal ulcer aspect. -distal aspect improving - Physical Exam Vital Signs Temp Pulse Resp BP 97.3 F L 71 18 117/76 11/05/18 12:06 11/05/18 12:06 11/05/18 12:06 11/05/18 12:06 General: Alert, Oriented x3, Cooperative, No apparent distress Extremities: No cyanosis, Capillary Refill Less than 3 Seconds, No Calf Tenderness - Negative Yen and Watts right, Diminished Peripheral Pulses, Edema - Scant Skin: Ulcer/ Wound - No purulence, erythema, streaking, odor, necrosis, deep tissue exposure, exposed tendon, or infection right lower extremity. The peripheral skin is hairless and atrophic Wound Measurements and Assessment WC - Nurse 1 - General Ulcer Measurement Start: 10/08/18 13:11 Freq: Status: Active Protocol: Activity Type Activity Date Activity User E-Sign Co-Sign Detail Recorded Client Recorded Date Recorded By Document 11/05/18 12:06 DL [id number] 11/05/18 12:12 DL 11/05/18 12:06 Wound Center Nurse 1 [Ulcer Assessment] #2 right lower leg -Current Size (cm) - Length 6.6 -Current Size (cm) - Width 1 -Current Size (cm) - Depth 0.2 -Total Square Cm 6.6 -Photo Taken No -Tunneling Position (O'clock) 12 -Tunneling Distance (cm) 2 -Tunneling Position #2 (O'clock) 6 -Tunneling Distance #2 (cm) 2.8 -Exudate Amt Small -Exudate Type Serosanguineous -Wound Margin Thickened & Rolled Under -Granulation Amt Small (1-33%) -Granulation Quality [place] -Necrosis Amt Large (67-100%) -Necrotic Tissue Type Adherent Slough -Structure Exposed N/A -Texture (Denisa-wound Skin Appearance) Scarring -Moisture (Denisa-wound Skin Appearance No Abnormality ) -Color (Denisa-wound Skin Appearance) No Abnormality -Temperature (Denisa-wound Skin No Abnormality Appearance) (Pt Warm) -Tenderness on Palpation (Denisa-wound No Skin Appearance) -Ulcer Cleansing Rinsed/ Irrigated with Saline -Foul Odor after Cleansing No -Anesthetic Used 4% Lidocaine Solution - Nurse 2 - General Ulcer CM Notes Start: 10/08/18 13:11 Freq: Status: Active Protocol: Activity Type Activity Date Activity User E-Sign Co-Sign Detail Recorded Client Recorded Date Recorded By Document 11/05/18 12:36 [id number] 11/05/18 12:41 11/05/18 12:36 Wound Center Nurse 2 [Procedure/Treatment] -Time 12:37 -Correct Patient Yes -Correct Side, Site, Position Yes -Correct Procedure Yes -Procedure Performed Yes -Type of Procedure Debridement -Clinical Debridement Subcutaneous -Post Debridement Size (cm) - Length 6.7 -Post Debridement Size (cm) - Width 1.1 -Post Debridement Size (cm) - Depth 0.3 -Total Square Cm 7.37 -Wound/Ulcer Outcome Not Healed -Ulcer Cleansing Rinsed/ Irrigated with Saline -Foul Odor after Cleansing No -Bioengineered Tissue No -Bleeding Controlled with Pressure -Offloading No -Treatment Response Procedure Tolerated Well [See Physician Procedure note for Specifics] Pain Scale: 0-10 Numeric [Pain] -Is Patient Pain Free? Yes Musculoskeletal: No Tenderness to Palpation of Joints or Extremities, Muscle Wasting, - - Contracture of right ankle and muscle weakness continue consistent with the dropfoot Neurological: Sensory exam intact to light touch and pain Psych/Mental Status: Normal Affect, Appropriate Debridement Note Post-Debridement Measurements/Treatment - Nurse 2 - General Ulcer CM Notes Start: 10/08/18 13:11 Freq: Status: Active Protocol: Activity Type Activity Date Activity User E-Sign Co-Sign Detail Recorded Client Recorded Date Recorded By Document 10/08/18 13:28 AN [id number] 10/08/18 13:30 AN Document 10/15/18 14:20 AN [id number] 10/15/18 14:22 AN Document 10/22/18 11:08 AN [id number] 10/22/18 11:16 AN Document 10/29/18 11:11 AN [id number] 10/29/18 11:17 AN Document 11/05/18 12:36 [id number] 11/05/18 12:41 05/01/19 05/08/19 05/15/19 13:28 14:20 11:08 Wound Center Nurse 2 #2 right lower leg -Time 13:28 14:20 11:12 -Correct Patient Yes Yes -Correct Side, Site, Position Yes Yes -Correct Procedure Yes Yes -Procedure Performed Yes Yes No -Type of Procedure Debridement Debridement -Clinical Debridement Subcutaneous Subcutaneous Selective -Post Debridement Size (cm) - Length 6.9 7.0 0.1 -Post Debridement Size (cm) - Width 1.7 1.1 0.1 -Post Debridement Size (cm) - Depth 0.7 1.0 0.1 -Total Square Cm 11.73 7.70 0.01 -Wound/Ulcer Outcome Not Healed Not Healed Not Healed -Ulcer Cleansing Rinsed/ Rinsed/ Irrigated with Irrigated with Saline Saline -Foul Odor after Cleansing No No -Bioengineered Tissue No No No -Bleeding Controlled with Pressure Pressure -Offloading Yes Yes Yes -Type of Offloading Camwalker Camwalker Camwalker -Treatment Response Procedure Procedure Procedure Tolerated Well Tolerated Well Tolerated Well Pain Scale: 0-10 Numeric Is Patient Pain Free? Yes Yes Yes 10/29/18 11/05/18 11:11 12:36 Wound Center Nurse 2 #2 right lower leg -Time 11:13 12:37 -Correct Patient Yes Yes -Correct Side, Site, Position Yes Yes -Correct Procedure Yes Yes -Procedure Performed Yes Yes -Type of Procedure Debridement Debridement -Clinical Debridement Subcutaneous Subcutaneous -Post Debridement Size (cm) - Length 0.2 6.7 -Post Debridement Size (cm) - Width 0.2 1.1 -Post Debridement Size (cm) - Depth 0.1 0.3 -Total Square Cm 0.04 7.37 -Wound/Ulcer Outcome Not Healed Not Healed -Ulcer Cleansing Rinsed/ Irrigated with Saline -Foul Odor after Cleansing No -Bioengineered Tissue No -Bleeding Controlled with Pressure -Offloading No -Type of Offloading -Treatment Response Procedure Procedure Tolerated Well Tolerated Well Pain Scale: 0-10 Numeric Is Patient Pain Free? Yes Yes Wound debrided: lateral leg Laterality: Right Type of Debridement: Excisional debridement Anesthesia Used: 5% Lidocaine Gel Depth: in the subcutaneous layer Percentage of wound debrided: 100 Instrument Used: #15 blade Tissue Removed: fibrous, devitalized subcutaneous, biofilm, slough Severity: Fat Layer Exposed Amount of bleeding with debridement: Mild Bleeding Controlled with: Pressure Patient tolerated procedure well Assessment/Plan Active Problems (Last Reviewed 09/19/18 @ 09:44 by Rosa Isela Pat) Other acquired deformities of right foot (Chronic) Foot drop, right (Chronic) Difficulty walking (Chronic) Pain in right lower leg (Chronic) Other specified peripheral vascular diseases (Chronic) Delayed wound healing (Chronic) Malnutrition (Chronic) 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 Recent infection resolved. Peripheral vascular disease. Leg edema and rule out venous insufficiency. Malnutrition. Recent tobacco use. Walking difficulty. Pain in right limb lower. Contraction right lower extremity at ankle level. Right dropfoot Plan: The ulcer was debrided as noted in the clinical panel. I reviewed and discussed his case. No exposed tendon is noted. He was reassured there are no signs of local infection at this time. Additional prior authorization for sarah wound VAC application is pending. In the meantime recommend changing the dressing with Adaptic and saline wet-to-dry gauze daily. He understands and elects to proceed. He already completed his oral antibiotic course per infectious disease recommendations. The infectious disease follow-up will proceed as scheduled if any return of the symptoms return; is not noted at this time. To continue to eat and take meal supplements as tolerated; he understands this is important for healing potential. [place] prescription was previously provided and he was advised on proper use. To keep pressure off this ulcer by avoiding lying on his right lateral leg. To reduce unnecessary pressure by wearing a light Tubigrip compression garment. To continue CAM Walker weight- bear as tolerated with assistive device as needed. [place] heel lifts were previously added to the cam walker previously to accommodate his plantarflex dropfoot position and contraction. He is tolerating this immobilization device for long-term use. I recommended and offered an ankle foot orthotic for the right lower extremity in combination with extra-depth shoes. I recommended a more open leg frame to avoid pressure on the ulcer site. I am also open to consider heel lift or a spring-loaded component or a patellar tendon bearing component to address his contraction that is progressively turned into a more rigid condition. His order was previously faxed to [employer] and his casting session to start treating the device is pending. Updated noninvasive vascular studies and venous reflux studies were initially ordered. Then, Dr. Yarbrough's intervention was noted including right leg angioplasty and initiation of thrombolysis on July 03, 2018, right leg angioplasty and thrombolytic check performed on July 04, 2018, and right leg fasciotomy and wound VAC placement performed on July 07, 2018. At this time, the noninvasive vascular studies are not recommended or needed given he has had a previous stent placed. It is noted he will likely have a Doppler performed when he follows up visit with his vascular surgeon. He recently had a previous follow-up exam with Dr. Yarbrough and his notes will be requested. The patient reports it went well and additional intervention is not recommended at this time. I answered all his questions.
== END 2018-11-07 23:59 ==
LOC: WC 11:30
PROVIDERS: Family Provider Internal Medicine; PCP Internal Medicine; Referring Provider Podiatrist; Visit Provider Podiatrist
DX: I73.9 Peripheral vascular disease, unspecified (principal); R60.0 Localized edema; I48.91 Unspecified atrial fibrillation; L97.812 Non-pressure chronic ulcer of other part of right lower leg with fat layer exposed; Z86.718 Personal history of other venous thrombosis and embolism; M12.371 Palindromic rheumatism, right ankle and foot; R26.2 Difficulty in walking, not elsewhere classified; Z72.0 Tobacco use
CPT/HCPCS: 11042; 11043; 97605; 99212; G0463

== ENCOUNTER → 2018-11-11 11:47 | Outpatient (CLI) | payer MEDICARE, MEDICAID, SELFPAY ==
[2018-11-05 12:06] VITALS: BMI 22.4
--- NOTE | 2018-11-11 11:55 | RAD_ITS ---
HISTORY: left ankle pain for a while. nki COMPARISON: None FINDINGS: # of images incl. paperwork: 3 XR Ankle Min 3 Views : No fracture or osseous abnormality. The ankle mortise is intact. Soft tissue swelling is not seen. RAD/Ankle min 3 Views IMPRESSION: Normal left ankle. at 0027 Reported and signed by: Piyush Hernandez MD Electronically Signed: Piyush Hernandez MD at 0:26 EDT Tel , Service support ,
== END ==
PROVIDERS: Family Provider Internal Medicine; PCP Internal Medicine; Referring Provider Podiatrist; Visit Provider Podiatrist
DX: M25.572 Pain in left ankle and joints of left foot (principal); M19.072 Primary osteoarthritis, left ankle and foot
CPT/HCPCS: 73610

== ENCOUNTER 2018-12-03 10:30 | Outpatient (RCR) | payer MEDICARE, MEDICAID, SELFPAY ==
[2018-11-08 00:56] VITALS: BP 117/76; PULSE 71; RESP 18; TEMP 36.3
[2018-11-12 11:59] VITALS: BP 142/84; PULSE 80; RESP 16; TEMP 36.3; BMI 22.4
--- NOTE | 2018-11-12 13:28 | PN.PCM_ITS ---
(1) Abscess of right leg Status: Acute Current Visit: Yes Code(s): L02.415 - Cutaneous abscess of right lower limb (2) Infection Status: Acute Current Visit: Yes Code(s): B99.9 - Unspecified infectious disease (3) Foot drop, right Status: Chronic Current Visit: Yes Code(s): M21.371 - Foot drop, right foot (4) Difficulty walking Status: Chronic Current Visit: Yes Code(s): R26.2 - Difficulty in walking, not elsewhere classified (5) Pain in right lower leg Status: Chronic Current Visit: Yes Code(s): M79.661 - Pain in right lower leg (6) Delayed wound healing Status: Chronic Current Visit: Yes Code(s): T14.8XXD - Other injury of unspecified body region, subsequent encounter (7) 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 Choe is a 68 year old with past medical history of atrial fibrillation, peripheral arterial disease status post left lower extremity stenting and tobacco abuse presents for follow-up of right leg ulcer. He had a reported deep venous thrombosis of the right leg and developed subsequent compartment syndrome previously. He underwent surgical fasciotomy on July 07 at [facility] and has a resultant chronic wound. He had a recent surgical debridement and serial application of advanced wound care product with delayed closure and application of wound VAC on 08/15/2018 and 08/19/2018, respectively. He also had a tendon debridement with versa jet application of amnio fill and epi cord again and application of sarah wound VAC. He is kept this clean and intact. Essentially he has had a chronic ulcer with exposed necrotic muscle since the end of June 2018. Today he also presents with a new concern. There appears to be a boil underneath the initial surgical and ulceration site that is painful and red. The patient and his daughter deny trauma. He denies fever, chill, nausea, vomiting, chest pain, shortness of breath. He denies odor. He has decreased but continued pain to the ulcer site and contracted right ankle and foot that has progressively developed as a sequela. He has been trying to use the cam walker for immobilization. He is with his daughter today. Progress of Wound: -Healed proximal ulcer aspect. -distal aspect improving. - New infection right lower leg with abscess - Physical Exam Vital Signs Temp Pulse Resp BP 97.3 F L 80 16 142/84 H 11/12/18 11:59 11/12/18 11:59 11/12/18 11:59 11/12/18 11:59 General: Alert, Oriented x3, Cooperative HEENT: Atraumatic Extremities: No cyanosis, Capillary Refill Less than 3 Seconds, No Calf Tenderness - Negative Yen and Watts sign bilateral, Diminished Peripheral Pulses, Edema - Mild right lower extremity Skin: Ulcer/ Wound - The initial ulcer site does not have any purulence, erythema, streaking, odor, or infection. The ulcer bed is granular and fibrous without exposed necrotic tendon or bone the peripheral skin is hairless and atrophic. The previous proximal wound bedside continues to remodel and is doing well. There is a new abscess with bogginess on palpation distal to the ulcer site that is red and upon incision drainage there is purulence. Wound Measurements and Assessment WC - Nurse 1 - General Ulcer Measurement Start: 11/12/18 11:59 Freq: Status: Active Protocol: Activity Type Activity Date Activity User E-Sign Co-Sign Detail Recorded Client Recorded Date Recorded By Document 11/12/18 11:59 [facility] [id number] 11/12/18 12:01 [facility] 11/12/18 11:59 Wound Center Nurse 1 [Ulcer Assessment] #2 right lower leg -Combined with other wound No -Current Size (cm) - Length 6.4 -Current Size (cm) - Width 0.8 -Current Size (cm) - Depth 0.5 -Total Square Cm 5.12 -Date of Last Picture (Recall this 11/12/18 field) -Photo Taken Yes -Epithelialization None Present -Tunneling No -Undermining/Tunneling No -Circular Undermining No -Exudate Amt Medium -Exudate Type Serosanguineous -Wound Margin Thickened -Granulation Amt None Present (0 %) -Slough/Fibrin Yes -Necrosis Amt Large (67-100%) -Necrotic Tissue Type Adherent Slough -Texture (Denisa-wound Skin Appearance) Assessed Scarring -Moisture (Denisa-wound Skin Appearance Assessed ) Dry/Scaly -Color (Denisa-wound Skin Appearance) Assessed Erythema -Temperature (Denisa-wound Skin No Abnormality Appearance) (Pt Warm) -Tenderness on Palpation (Denisa-wound Yes Skin Appearance) -Ulcer Cleansing Rinsed/ Irrigated with Saline -Foul Odor after Cleansing No -Anesthetic Used 4% Lidocaine Solution [Edema Assessment] -Lower Limb Edema Present Yes -Right Calf (cm) 31.8 -Right Ankle (cm) 20 WC - Nurse 2 - General Ulcer CM Notes Start: 11/12/18 11:59 Freq: Status: Active Protocol: Activity Type Activity Date Activity User E-Sign Co-Sign Detail Recorded Client Recorded Date Recorded By Document 11/12/18 12:22 AN [id number] 11/12/18 12:24 AN 11/12/18 12:22 Wound Center Nurse 2 [Procedure/Treatment] #2 right lower leg -Time 12:23 -Correct Patient Yes -Correct Side, Site, Position Yes -Type of Procedure Debridement -Clinical Debridement Subcutaneous -Post Debridement Size (cm) - Length 6.5 -Post Debridement Size (cm) - Width 0.9 -Post Debridement Size (cm) - Depth 0.5 -Total Square Cm 5.85 -Wound/Ulcer Outcome Not Healed -Ulcer Cleansing Rinsed/ Irrigated with Saline -Foul Odor after Cleansing No -Bleeding Controlled with Pressure -Treatment Response Procedure Tolerated Well [See Physician Procedure note for Specifics] Pain Scale: 0-10 Numeric [Pain] -Is Patient Pain Free? Yes Musculoskeletal: No Tenderness to Palpation of Joints or Extremities, Muscle Wasting, - - Weakness and dropfoot noted Neurological: Sensory exam intact to light touch and pain Psych/Mental Status: Normal Affect, Appropriate Debridement Note Post-Debridement Measurements/Treatment - Nurse 2 - General Ulcer CM Notes Start: 11/12/18 11:59 Freq: Status: Active Protocol: Activity Type Activity Date Activity User E-Sign Co-Sign Detail Recorded Client Recorded Date Recorded By Document 11/12/18 12:22 AN [id number] 11/12/18 12:24 AN 11/12/18 12:22 Wound Center Nurse 2 #2 right lower leg -Time 12:23 -Correct Patient Yes -Correct Side, Site, Position Yes -Type of Procedure Debridement -Clinical Debridement Subcutaneous -Post Debridement Size (cm) - Length 6.5 -Post Debridement Size (cm) - Width 0.9 -Post Debridement Size (cm) - Depth 0.5 -Total Square Cm 5.85 -Wound/Ulcer Outcome Not Healed -Ulcer Cleansing Rinsed/ Irrigated with Saline -Foul Odor after Cleansing No -Bleeding Controlled with Pressure -Treatment Response Procedure Tolerated Well Pain Scale: 0-10 Numeric Is Patient Pain Free? Yes Wound debrided: lateral leg Laterality: Right Type of Debridement: Excisional debridement Anesthesia Used: 5% Lidocaine Gel Depth: in the subcutaneous layer Percentage of wound debrided: 100 Instrument Used: #15 blade Tissue Removed: fibrous, devitalized subcutaneous, biofilm, slough Severity: Fat Layer Exposed Amount of bleeding with debridement: Mild Bleeding Controlled with: Pressure Patient tolerated procedure well - Additional Wound Wound debrided: distal lateral leg ( I & D site) Laterality: Right Type of Debridement: Excisional debridement Depth: in the subcutaneous layer Percentage of wound debrided: 100 Instrument Used: #15 blade Tissue Removed: fibrous, devitalized subcutaneous, biofilm, slough, purulence Severity: Fat Layer Exposed Amount of bleeding with debridement: Mild Bleeding Controlled with: Pressure Patient tolerated procedure: Patient tolerated procedure well Assessment/Plan Active Problems (Last Reviewed 09/19/18 @ 09:44 by Rosa Isela Pat) Infection (Acute) Foot drop, right (Chronic) Difficulty walking (Chronic) Pain in right lower leg (Chronic) Abscess of right leg (Acute) Delayed wound healing (Chronic) 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 New abscess right lower lateral leg. Peripheral vascular disease. Leg edema and rule out venous insufficiency. Malnutrition. Recent tobacco use. Walking difficulty. Pain in right limb lower. Contraction right lower extremity at ankle level. Right dropfoot Plan: The ulcer was debrided as noted in the clinical panel. I reviewed and discussed his case. No exposed tendon is noted. A new abscess is noted and incision and drainage was performed after verbal consent was obtained in alcohol and Betadine was performed. Approximately 4 cc of purulent drainage was expressed and this was sent for culture including aerobic, anaerobic, acid-fast, fungal, and MRSA PCR. Labs were ordered including CBC, CMP, ESR, C-reactive protein. He will also obtain a right ankle x-ray and I will call him with these results. He does not appear to have systemic illness and this appears to be pretty localized to this area on his leg. I recommend he follow-up with infectious disease. It is noted he has had previous multiple drug resistances and lack of antibiotic coverage with oral medication options. This will be revisited as his cultures develop and will consider IV antibiotics if appropriate. This message was communicated with Dr. Baum with infectious disease and input will be greatly appreciated. Additional prior authorization for sarah wound VAC application is pending. In the meantime recommend changing the dressing with sterile gauze packing daily. He understands and elects to proceed. To continue to eat and take meal supplements as tolerated; he understands this is important for healing potential. [place] prescription was previously provided and he was advised on proper use. To keep pressure off this ulcer by avoiding lying on his right lateral leg. To reduce unnecessary pressure by wearing a light Tubigrip compression garment. To continue CAM Walker weight-bear as tolerated with assistive device as needed. [place] heel lifts were previously added to the cam walker previously to accommodate his plantarflex dropfoot position and contraction. He is tolerating this immobilization device for long-term use. I recommended and offered an ankle foot orthotic for the right lower extremity in combination with extra-depth shoes. I recommended a more open leg frame to avoid pressure on the ulcer site. I am also open to consider heel lift or a spring-loaded component or a patellar tendon bearing component to address his contraction that is progressively turned into a more rigid condition. His order was previously faxed to [employer] and his casting session to start treating the device is pending. Updated noninvasive vascular studies and venous reflux studies were initially ordered. Then, Dr. Yarbrough's intervention was noted including right leg angioplasty and initiation of thrombolysis on July 03, 2018, right leg angioplasty and thrombolytic check performed on July 04, 2018, and right leg fasciotomy and wound VAC placement performed on July 07, 2018. At this time, the noninvasive vascular studies are not recommended or needed given he has had a previous stent placed. It is noted he will likely have a Doppler performed when he follows up visit with his vascular surgeon. He recently had a previous follow-up exam with Dr. Yarbrough and his notes will be requested. The patient reports it went well and additional intervention is not recommended at this time. I answered all his questions. He will follow-up with Dr. Sigala who is coming next week.
[2018-11-12 16:23] LABS: Anion Gap 9 (5-15); BUN 16 mg/dL (7-18); BUN/Creat Ratio 15.8 RATIO (10-20); Calcium,Total 9.3 mg/dL (8.5-10.1); Chloride 104 mmol/L (98-107); Creatinine, Serum 1.01 mg/dL (0.70-1.30); EST Glomerular Filtration Rate 78 mL/min (>60); Est Glom Filt Rate - Afr Amer 95 mL/min (>60); Estimated Creatinine Clearance 78.47 ml/min; Glucose 82 mg/dL (74-106); Sodium Level 138 mmol/L (136-145)
[2018-11-12 16:44] LABS: Absolute Neutrophil Count 3.5 X10^3/uL (2.0-7.7); Basophil# 0.03 X10^3/uL; Basophil% 0.4 % (0-1); Eosinophil# 0.35 X10^3/uL; Eosinophils% 4.5 % (0-5); Erythrocyte Sedimentation Rate 65 mm/hr (0-20); Hematocrit 36.1 % (40-54); Hemoglobin 11.4 g/dl (13.0-16.5); Lymphocyte % 36.2 % (19-41); Mean Corp Hgb Conc 31.6 g/gl (32-36); Mean Corpuscular Hgb 25.2 pg (27.0-32.0); Mean Corpuscular Volume 79.9 fL (80-94); Mean Platelet Vol. 9.8 fl (6.2-12.0); Monocyte# 1.08 X10^3/uL; Neutrophil # 3.47 X10^3/uL (2.7-7.7); Neutrophil % 44.8 % (47-70); Platelet Count 319 K/mm3 (150-450); RBC Distribution Width CV 15.9 % (11.6-14.6); RBC Distribution Width SD 46.4 fl (35.1-43.9); Red Blood Count 4.52 M/mm3 (4.6-6.2); White Blood Count 7.7 K/mm3 (4.4-11.0)
[2018-11-12 16:53] LABS: POSITIVE COUNT NO; POSITIVE DIFFERENTIAL NO; POSITIVE MORPHOLOGY NO
[2018-11-12 19:59] LABS: M R Staph aureus DNA By PCR Negative (Negative); Probe Check PASS; Specimen Processing Control PASS; Staph aureus DNA By PCR POSITIVE (Negative)
--- NOTE | 2018-11-19 13:36 | PCM.PN.ID ---
Subjective: Feeling better, no fever, no n/v/d. On keflex, leg much improved, no drainage. - Physical Exam General: Alert, Cooperative, No apparent distress Lungs: Clear to auscultation, Normal air movement Cardiovascular: Regular rate, Regular Rhythm Abdomen: Soft, Non Tender, Non-Distended Skin: Ulcer/ Wound - brown ulcer, improving. Inferior skin abscess, resolving, no drainage Vital Signs Temp Pulse Resp BP 97.3 F L 80 16 142/84 H 11/12/18 11:59 11/12/18 11:59 11/12/18 11:59 11/12/18 11:59 Oxygen Delivery Method Room Air Weight: 77.111 kg Body Mass Index (BMI) 22.4 Microbiology Past 72 Hours 11/12/18 12:18 Gram Stain - Final Wound - Leg, Right Wound Culture - Final Staphylococcus aureus Pseudomonas aeroginosa Anaerobic Culture - Final No anaerobic bacteria isolated. Medical Necessity - Tobacco Use Smoking Status: Former smoker Route of nutrition/ use of supplements: [] Nutritional Intake: [] IV Site: [] [place] Catheter: [] - Assessment/Plan Antibiotics: [] Assessment/Plan: [] Chronic brown ulcer - h/o pseudomonas infection/colonization. New MSSA skin abscess, now much improved with I&D and course of keflex. Finish abx as planned. D/w nursing. Will follow as needed.
[2018-11-20 13:19] VITALS: BP 140/74; PULSE 78; RESP 18; TEMP 37.2; BMI 22.4
--- NOTE | 2018-11-20 13:55 | PCM.WC.PN ---
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 Choe is a 68 year old with past medical history of atrial fibrillation, peripheral arterial disease status post left lower extremity stenting and tobacco abuse presents for follow-up of right leg ulcer. He had a reported deep venous thrombosis of the right leg and developed subsequent compartment syndrome previously. He underwent surgical fasciotomy on July 07 at [facility] and has a resultant chronic wound. He had a recent surgical debridement and serial application of advanced wound care product with delayed closure and application of wound VAC on 08/15/2018 and 08/19/2018, respectively. He also had a tendon debridement with versa jet application of amnio fill and epi cord again and application of sarah wound VAC. He is kept this clean and intact. Essentially he has had a chronic ulcer with exposed necrotic muscle since the end of June 2018. Today he also presents with a new concern. There appears to be a boil underneath the initial surgical and ulceration site that is painful and red. The patient and his daughter deny trauma. He denies fever, chill, nausea, vomiting, chest pain, shortness of breath. He denies odor. He has decreased but continued pain to the ulcer site and contracted right ankle and foot that has progressively developed as a sequela. He has been trying to use the cam walker for immobilization. He is with his daughter today. Progress of Wound: -Healed proximal ulcer aspect. -Distal aspect improving. -Previous abscess area improved - Physical Exam Vital Signs Temp Pulse Resp BP 98.9 F 78 18 140/74 H 11/20/18 13:19 11/20/18 13:19 11/20/18 13:19 11/20/18 13:19 General: Alert Extremities: No cyanosis, Capillary Refill Less than 3 Seconds, No Calf Tenderness - Negative Yen and Watts signs bilateral, Diminished Peripheral Pulses, Edema - Mild right lower extremity Skin: Ulcer/ Wound - ulcer site does not have any purulence, erythema, streaking, odor, or infection. The ulcer bed is granular and fibrous without exposed necrotic tendon or bone the peripheral skin is hairless and atrophic. The previous proximal wound bedside continues to remodel and is doing well. Previous distal abscess area healing without complication and no signs of infection today. Wound Measurements and Assessment WC - Nurse 1 - General Ulcer Measurement Start: 11/12/18 11:59 Freq: Status: Active Protocol: Activity Type Activity Date Activity User E-Sign Co-Sign Detail Recorded Client Recorded Date Recorded By Document 11/20/18 13:19 MT [id number] 11/20/18 13:25 MT 11/20/18 13:19 Wound Center Nurse 1 [Ulcer Assessment] #2 right lower leg -Current Size (cm) - Length 6.7 -Current Size (cm) - Width 1.0 -Current Size (cm) - Depth 0.5 -Total Square Cm 6.70 -Exudate Amt Small -Exudate Type Serosanguineous -Wound Margin Thickened & Rolled Under -Granulation Amt None Present (0 %) -Necrosis Amt Large (67-100%) -Necrotic Tissue Type Adherent Slough -Texture (Denisa-wound Skin Appearance) Assessed -Moisture (Denisa-wound Skin Appearance Assessed ) -Color (Denisa-wound Skin Appearance) Assessed -Temperature (Denisa-wound Skin No Abnormality Appearance) (Pt Warm) -Tenderness on Palpation (Denisa-wound No Skin Appearance) -Ulcer Cleansing Rinsed/ Irrigated with Saline -Foul Odor after Cleansing No -Anesthetic Used 5% Lidocaine Gel [Edema Assessment] -Lower Limb Edema Present NA WC - Nurse 2 - General Ulcer CM Notes Start: 11/12/18 11:59 Freq: Status: Active Protocol: Activity Type Activity Date Activity User E-Sign Co-Sign Detail Recorded Client Recorded Date Recorded By Document 11/20/18 13:33 AN [id number] 11/20/18 13:36 AN 11/20/18 13:33 Wound Center Nurse 2 [Procedure/Treatment] #2 right lower leg -Time 13:35 -Correct Patient Yes -Correct Side, Site, Position Yes -Correct Procedure Yes -Procedure Performed Yes -Type of Procedure Debridement -Clinical Debridement Subcutaneous -Post Debridement Size (cm) - Length 10.5 -Post Debridement Size (cm) - Width 0.8 -Post Debridement Size (cm) - Depth 0.5 -Total Square Cm 8.40 -Wound/Ulcer Outcome Not Healed -Ulcer Cleansing Rinsed/ Irrigated with Saline -Bioengineered Tissue No -Bleeding Controlled with Pressure -Type of Offloading Camwalker -Treatment Response Procedure Tolerated Well [See Physician Procedure note for Specifics] Pain Scale: 0-10 Numeric [Pain] -Is Patient Pain Free? Yes Musculoskeletal: No Tenderness to Palpation of Joints or Extremities, Muscle Wasting, - - Weakness and dropfoot noted Neurological: Sensory exam intact to light touch and pain Psych/Mental Status: Normal Affect, Appropriate Debridement Note Post-Debridement Measurements/Treatment WC - Nurse 2 - General Ulcer CM Notes Start: 11/12/18 11:59 Freq: Status: Active Protocol: Activity Type Activity Date Activity User E-Sign Co-Sign Detail Recorded Client Recorded Date Recorded By Document 11/12/18 12:22 AN [id number] 11/12/18 12:24 AN Document 11/20/18 13:33 AN [id number] 11/20/18 13:36 AN 11/12/18 11/20/18 12:22 13:33 Wound Center Nurse 2 #2 right lower leg -Time 12:23 13:35 -Correct Patient Yes Yes -Correct Side, Site, Position Yes Yes -Correct Procedure Yes -Procedure Performed Yes -Type of Procedure Debridement Debridement -Clinical Debridement Subcutaneous Subcutaneous -Post Debridement Size (cm) - Length 6.5 10.5 -Post Debridement Size (cm) - Width 0.9 0.8 -Post Debridement Size (cm) - Depth 0.5 0.5 -Total Square Cm 5.85 8.40 -Wound/Ulcer Outcome Not Healed Not Healed -Ulcer Cleansing Rinsed/ Rinsed/ Irrigated with Irrigated with Saline Saline -Foul Odor after Cleansing No -Bioengineered Tissue No -Bleeding Controlled with Pressure Pressure -Type of Offloading Camwalker -Treatment Response Procedure Procedure Tolerated Well Tolerated Well Pain Scale: 0-10 Numeric Is Patient Pain Free? Yes Yes Wound debrided: Lateral leg Laterality: Right Type of Debridement: Excisional debridement Anesthesia Used: 4% Lidocaine Solution Depth: in the subcutaneous layer Percentage of wound debrided: 100 Instrument Used: 5mm curette Tissue Removed: Fibrous tissue, devitalized subcutaneous tissue, biofilm, slough Severity: Fat Layer Exposed Amount of bleeding with debridement: Mild Bleeding Controlled with: Pressure Patient tolerated procedure well Assessment/Plan Active Problems (Last Reviewed 09/19/18 @ 09:44 by Rosa Isela Pat) Infection (Acute) Foot drop, right (Chronic) Difficulty walking (Chronic) Pain in right lower leg (Chronic) Abscess of right leg (Acute) Delayed wound healing (Chronic) 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 New abscess right lower lateral leg. Peripheral vascular disease. Leg edema and rule out venous insufficiency. Malnutrition. Recent tobacco use. Walking difficulty. Pain in right limb lower. Contraction right lower extremity at ankle level. Right dropfoot Plan: Patient was carefully examined and evaluated today as a courtesy visit for Dr. Titus. The ulcer was debrided as noted in the clinical panel. I reviewed and discussed his case. No exposed tendon is noted. Previous abscess area appears to be healing with no signs of local infection at this time. Infectious disease saw the patient and the patient is to continue with course of Keflex until complete. Additional prior authorization for sarah wound VAC application is pending. Patient to continue with daily dressing changes with sterile gauze packing daily. He understands and elects to proceed. To continue to eat and take meal supplements as tolerated. [place] prescription was previously provided and he was advised on proper use. To keep pressure off this ulcer by avoiding lying on his right lateral leg. To reduce unnecessary pressure by wearing a light Tubigrip compression garment. To continue CAM Walker weight-bear as tolerated with assistive device as needed. I answered all his questions. He will follow-up with Dr. Titus again next week.
--- NOTE | 2018-11-20 13:59 | PN.PCM_ITS ---
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 Choe is a 68 year old with past medical history of atrial fibrillation, peripheral arterial disease status post left lower extremity stenting and tobacco abuse presents for follow-up of right leg ulcer. He had a reported deep venous thrombosis of the right leg and developed subsequent compartment syndrome previously. He underwent surgical fasciotomy on July 07 at [facility] and has a resultant chronic wound. He had a recent surgical debridement and serial application of advanced wound care product with delayed closure and application of wound VAC on 08/15/2018 and 08/19/2018, respectively. He also had a tendon debridement with versa jet application of amnio fill and epi cord again and application of sarah wound VAC. He is kept this clean and intact. Essentially he has had a chronic ulcer with exposed necrotic muscle since the end of June 2018. Today he also presents with a new concern. There appears to be a boil underneath the initial surgical and ulceration site that is painful and red. The patient and his daughter deny trauma. He denies fever, chill, nausea, vomiting, chest pain, shortness of breath. He denies odor. He has decreased but continued pain to the ulcer site and contracted right ankle and foot that has progressively developed as a sequela. He has been trying to use the cam walker for immobilization. He is with his daughter today. Progress of Wound: -Healed proximal ulcer aspect. -Distal aspect improving. -Previous abscess area improved - Physical Exam Vital Signs Temp Pulse Resp BP 98.9 F 78 18 140/74 H 11/20/18 13:19 11/20/18 13:19 11/20/18 13:19 11/20/18 13:19 General: Alert Extremities: No cyanosis, Capillary Refill Less than 3 Seconds, No Calf Tenderness - Negative Yen and Watts signs bilateral, Diminished Peripheral Pulses, Edema - Mild right lower extremity Skin: Ulcer/ Wound - ulcer site does not have any purulence, erythema, streaking, odor, or infection. The ulcer bed is granular and fibrous without exposed necrotic tendon or bone the peripheral skin is hairless and atrophic. The previous proximal wound bedside continues to remodel and is doing well. P revious distal abscess area healing without complication and no signs of infection today. Wound Measurements and Assessment WC - Nurse 1 - General Ulcer Measurement Start: 11/12/18 11:59 Freq: Status: Active Protocol: Activity Type Activity Date Activity User E-Sign Co-Sign Detail Recorded Client Recorded Date Recorded By Document 11/20/18 13:19 MT [id number] 11/20/18 13:25 MT 11/20/18 13:19 Wound Center Nurse 1 [Ulcer Assessment] #2 right lower leg -Current Size (cm) - Length 6.7 -Current Size (cm) - Width 1.0 -Current Size (cm) - Depth 0.5 -Total Square Cm 6.70 -Exudate Amt Small -Exudate Type Serosanguineous -Wound Margin Thickened & Rolled Under -Granulation Amt None Present (0 %) -Necrosis Amt Large (67-100%) -Necrotic Tissue Type Adherent Slough -Texture (Denisa-wound Skin Appearance) Assessed -Moisture (Denisa-wound Skin Appearance Assessed ) -Color (Denisa-wound Skin Appearance) Assessed -Temperature (Denisa-wound Skin No Abnormality Appearance) (Pt Warm) -Tenderness on Palpation (Denisa-wound No Skin Appearance) -Ulcer Cleansing Rinsed/ Irrigated with Saline -Foul Odor after Cleansing No -Anesthetic Used 5% Lidocaine Gel [Edema Assessment] -Lower Limb Edema Present NA WC - Nurse 2 - General Ulcer CM Notes Start: 11/12/18 11:59 Freq: Status: Active Protocol: Activity Type Activity Date Activity User E-Sign Co-Sign Detail Recorded Client Recorded Date Recorded By Document 11/20/18 13:33 AN [id number] 11/20/18 13:36 AN 11/20/18 13:33 Wound Center Nurse 2 [Procedure/Treatment] #2 right lower leg -Time 13:35 -Correct Patient Yes -Correct Side, Site, Position Yes -Correct Procedure Yes -Procedure Performed Yes -Type of Procedure Debridement -Clinical Debridement Subcutaneous -Post Debridement Size (cm) - Length 10.5 -Post Debridement Size (cm) - Width 0.8 -Post Debridement Size (cm) - Depth 0.5 -Total Square Cm 8.40 -Wound/Ulcer Outcome Not Healed -Ulcer Cleansing Rinsed/ Irrigated with Saline -Bioengineered Tissue No -Bleeding Controlled with Pressure -Type of Offloading Camwalker -Treatment Response Procedure Tolerated Well [See Physician Procedure note for Specifics] Pain Scale: 0-10 Numeric [Pain] -Is Patient Pain Free? Yes Musculoskeletal: No Tenderness to Palpation of Joints or Extremities, Muscle Wasting, - - Weakness and dropfoot noted Neurological: Sensory exam intact to light touch and pain Psych/Mental Status: Normal Affect, Appropriate Debridement Note Post-Debridement Measurements/Treatment WC - Nurse 2 - General Ulcer CM Notes Start: 11/12/18 11:59 Freq: Status: Active Protocol: Activity Type Activity Date Activity User E-Sign Co-Sign Detail Recorded Client Recorded Date Recorded By Document 11/12/18 12:22 AN [id number] 11/12/18 12:24 AN Document 11/20/18 13:33 AN [id number] 11/20/18 13:36 AN 11/12/18 11/20/18 12:22 13:33 Wound Center Nurse 2 #2 right lower leg -Time 12:23 13:35 -Correct Patient Yes Yes -Correct Side, Site, Position Yes Yes -Correct Procedure Yes -Procedure Performed Yes -Type of Procedure Debridement Debridement -Clinical Debridement Subcutaneous Subcutaneous -Post Debridement Size (cm) - Length 6.5 10.5 -Post Debridement Size (cm) - Width 0.9 0.8 -Post Debridement Size (cm) - Depth 0.5 0.5 -Total Square Cm 5.85 8.40 -Wound/Ulcer Outcome Not Healed Not Healed -Ulcer Cleansing Rinsed/ Rinsed/ Irrigated with Irrigated with Saline Saline -Foul Odor after Cleansing No -Bioengineered Tissue No -Bleeding Controlled with Pressure Pressure -Type of Offloading Camwalker -Treatment Response Procedure Procedure Tolerated Well Tolerated Well Pain Scale: 0-10 Numeric Is Patient Pain Free? Yes Yes Wound debrided: Lateral leg Laterality: Right Type of Debridement: Excisional debridement Anesthesia Used: 4% Lidocaine Solution Depth: in the subcutaneous layer Percentage of wound debrided: 100 Instrument Used: 5mm curette Tissue Removed: Fibrous tissue, devitalized subcutaneous tissue, biofilm, slough Severity: Fat Layer Exposed Amount of bleeding with debridement: Mild Bleeding Controlled with: Pressure Patient tolerated procedure well Assessment/Plan Active Problems (Last Reviewed 09/19/18 @ 09:44 by Rosa Isela Pat) Infection (Acute) Foot drop, right (Chronic) Difficulty walking (Chronic) Pain in right lower leg (Chronic) Abscess of right leg (Acute) Delayed wound healing (Chronic) 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 New abscess right lower lateral leg. Peripheral vascular disease. Leg edema and rule out venous insufficiency. Malnutrition. Recent tobacco use. Walking difficulty. Pain in right limb lower. Contraction right lower extremity at ankle level. Right dropfoot Plan: Patient was carefully examined and evaluated today as a courtesy visit for Dr. Titus. The ulcer was debrided as noted in the clinical panel. I reviewed and discussed his case. No exposed tendon is noted. Previous abscess area appears to be healing with no signs of local infection at this time. Infectious disease saw the patient and the patient is to continue with course of Keflex until complete. Additional prior authorization for sarah wound VAC application is pending. Patient to continue with daily dressing changes with sterile gauze packing daily. He understands and elects to proceed. To continue to eat and take meal supplements as tolerated. [place] prescription was previously provided and he was advised on proper use. To keep pressure off this ulcer by avoiding lying on his right lateral leg. To reduce unnecessary pressure by wearing a light Tubigrip compression garment. To continue CAM Walker weight- bear as tolerated with assistive device as needed. I answered all his questions. He will follow-up with Dr. Titus again next week.
[2018-11-26 11:03] VITALS: BP 128/83; PULSE 74; RESP 20; TEMP 35.7; BMI 22.4
--- NOTE | 2018-11-26 13:42 | PCM.WC.PN ---
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 Status: Chronic Current Visit: Yes Code(s): L97.913 - Non-pressure chronic ulcer of unspecified part of right lower leg with necrosis of muscle (2) Abscess of right leg Status: Resolved Current Visit: Yes Code(s): L02.415 - Cutaneous abscess of right lower limb (3) Infection Status: Resolved Current Visit: Yes Code(s): B99.9 - Unspecified infectious disease (4) Foot drop, right Status: Chronic Current Visit: Yes Code(s): M21.371 - Foot drop, right foot (5) Difficulty walking Status: Chronic Current Visit: Yes Code(s): R26.2 - Difficulty in walking, not elsewhere classified (6) Pain in right lower leg Status: Chronic Current Visit: Yes Code(s): M79.661 - Pain in right lower leg (7) Delayed wound healing Status: Chronic Current Visit: Yes Code(s): T14.8XXD - Other injury of unspecified body region, subsequent encounter Type of Wound Date of Service: 11/26/18 Chief Complaint: Leg ulcer right History of Wound: Mr. Choe is a 68 year old with past medical history of atrial fibrillation, peripheral arterial disease status post left lower extremity stenting and tobacco abuse presents for follow-up of right leg ulcer. He had a reported deep venous thrombosis of the right leg and developed subsequent compartment syndrome previously. He underwent surgical fasciotomy on July 07 at [facility] and has a resultant chronic wound. He had a recent surgical debridement and serial application of advanced wound care product with delayed closure and application of wound VAC on 08/15/2018 and 08/19/2018, respectively. He also had a tendon debridement with versa jet application of amnio fill and epi cord again and application of sarah wound VAC. He is kept this clean and intact. Essentially he has had a chronic ulcer with exposed necrotic muscle since the end of June 2018. He is recently been approved for an additional sarah wound VAC. He was treated for an additional recent infection about 2 weeks ago for the right leg in which his x-rays were negative and he completed a course of Keflex under the management of infectious disease. The site has stopped draining and is no longer red or painful. He is finding it difficult to ambulate in the cam walker. He admits he did not start the process for getting his ankle-foot orthotic ordered from [facility] and is ready to start that at this time. Progress of Wound: -Healed proximal ulcer aspect. -Distal aspect improving. -Previous abscess area with ulcer healed and resolved - Physical Exam Vital Signs Temp Pulse Resp BP 96.3 F L 74 20 H 128/83 H 11/26/18 11:03 11/26/18 11:03 11/26/18 11:03 11/26/18 11:03 General: Alert, Oriented x3, Cooperative, No apparent distress Extremities: No cyanosis, Capillary Refill Less than 3 Seconds, No Calf Tenderness - Negative Yen and Watts signs right lower extremity, Diminished Peripheral Pulses, Edema - Mild Skin: Ulcer/ Wound - no purulence, erythema, streaking, odor, or infection. Full epithelialization noted to the recent distal Abscess site which is healed. There is granular and fibrous tissue remaining in the main ulcer site with some peripheral epithelialization and invagination noted Wound Measurements and Assessment WC - Nurse 1 - General Ulcer Measurement Start: 11/12/18 11:59 Freq: Status: Active Protocol: Activity Type Activity Date Activity User E-Sign Co-Sign Detail Recorded Client Recorded Date Recorded By Document 11/26/18 11:03 [id number] 11/26/18 11:14 11/26/18 11:03 Wound Center Nurse 1 [Ulcer Assessment] #2 right lower leg -Combined with other wound No -Photo Taken No -Epithelialization None Present -Tunneling No -Undermining/Tunneling No -Circular Undermining No -Exudate Amt Medium -Exudate Type Purulent -Wound Margin Fibrotic Scar, Thickened Scar -Granulation Amt None Present (0 %) -Granulation Quality N/A -Slough/Fibrin Yes -Necrosis Amt None Present (0 %) -Structure Exposed N/A -Texture (Denisa-wound Skin Appearance) No Abnormality -Moisture (Denisa-wound Skin Appearance No Abnormality ) -Temperature (Denisa-wound Skin No Abnormality Appearance) (Pt Warm) -Tenderness on Palpation (Denisa-wound No Skin Appearance) -Ulcer Cleansing Rinsed/ Irrigated with Saline -Foul Odor after Cleansing No -Anesthetic Used 4% Lidocaine Solution,5% Lidocaine Gel [Edema Assessment] -Lower Limb Edema Present No WC - Nurse 2 - General Ulcer CM Notes Start: 11/12/18 11:59 Freq: Status: Active Protocol: Activity Type Activity Date Activity User E-Sign Co-Sign Detail Recorded Client Recorded Date Recorded By Document 11/26/18 11:54 AN [id number] 11/26/18 11:58 AN 11/26/18 11:54 Wound Center Nurse 2 [Procedure/Treatment] #2 right lower leg -Time 11:57 -Correct Patient Yes -Correct Side, Site, Position Yes -Correct Procedure Yes -Procedure Performed Yes -Type of Procedure Debridement -Clinical Debridement Subcutaneous -Post Debridement Size (cm) - Length 6.4 -Post Debridement Size (cm) - Width 1.0 -Post Debridement Size (cm) - Depth 0.8 -Total Square Cm 6.40 -Wound/Ulcer Outcome Not Healed -Ulcer Cleansing Rinsed/ Irrigated with Saline -Foul Odor after Cleansing No -Bioengineered Tissue No -Bleeding Controlled with Pressure -Offloading No -Treatment Response Procedure Tolerated Well [See Physician Procedure note for Specifics] Pain Scale: 0-10 Numeric [Pain] -Is Patient Pain Free? Yes Debridement Note Post-Debridement Measurements/Treatment WC - Nurse 2 - General Ulcer CM Notes Start: 11/12/18 11:59 Freq: Status: Active Protocol: Activity Type Activity Date Activity User E-Sign Co-Sign Detail Recorded Client Recorded Date Recorded By Document 11/12/18 12:22 AN [id number] 11/12/18 12:24 AN Document 11/20/18 13:33 AN [id number] 11/20/18 13:36 AN Document 11/26/18 11:54 AN [id number] 11/26/18 11:58 AN 11/12/18 11/20/18 11/26/18 12:22 13:33 11:54 Wound Center Nurse 2 #2 right lower leg -Time 12:23 13:35 11:57 -Correct Patient Yes Yes Yes -Correct Side, Site, Position Yes Yes Yes -Correct Procedure Yes Yes -Procedure Performed Yes Yes -Type of Procedure Debridement Debridement Debridement -Clinical Debridement Subcutaneous Subcutaneous Subcutaneous -Post Debridement Size (cm) - Length 6.5 10.5 6.4 -Post Debridement Size (cm) - Width 0.9 0.8 1.0 -Post Debridement Size (cm) - Depth 0.5 0.5 0.8 -Total Square Cm 5.85 8.40 6.40 -Wound/Ulcer Outcome Not Healed Not Healed Not Healed -Ulcer Cleansing Rinsed/ Rinsed/ Rinsed/ Irrigated with Irrigated with Irrigated with Saline Saline Saline -Foul Odor after Cleansing No No -Bioengineered Tissue No No -Bleeding Controlled with Pressure Pressure Pressure -Offloading No -Type of Offloading Camwalker -Treatment Response Procedure Procedure Procedure Tolerated Well Tolerated Well Tolerated Well Pain Scale: 0-10 Numeric Is Patient Pain Free? Yes Yes Yes Wound debrided: lateral leg Laterality: Right Type of Debridement: Excisional debridement Anesthesia Used: 5% Lidocaine Gel Depth: in the subcutaneous layer Percentage of wound debrided: 100 Instrument Used: #15 blade Tissue Removed: fibrous, devitalized subcutaneous, biofilm, slough Severity: Fat Layer Exposed Amount of bleeding with debridement: Mild Bleeding Controlled with: Pressure Patient tolerated procedure well Assessment/Plan Active Problems (Last Reviewed 09/19/18 @ 09:44 by Rosa Isela Pat) Foot drop, right (Chronic) Difficulty walking (Chronic) Pain in right lower leg (Chronic) Delayed wound healing (Chronic) 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 New abscess right lower lateral leg. Peripheral vascular disease. Leg edema and rule out venous insufficiency. Malnutrition. Recent tobacco use. Walking difficulty. Pain in right limb lower. Contraction right lower extremity at ankle level. Right dropfoot Plan: Patient was carefully examined and evaluated today. The ulcer was debrided as noted in the clinical panel. I reviewed and discussed his case. No exposed tendon is noted. Previous abscess area appears to be completely healed and he completed antibiotics. He is reassured no local signs of infection exist today. Additional prior authorization for sarah wound VAC application was approved and applied today after [place] and gauze to fill in the cavity. Patient to continue with daily dressing changes with sterile gauze packing daily. He understands and elects to proceed. To continue to eat and take meal supplements as tolerated. [place] prescription was previously provided and he was advised on proper use. To keep pressure off this ulcer by avoiding lying on his right lateral leg. To reduce unnecessary pressure by wearing a light Tubigrip compression garment. To continue CAM Walker weight-bear as tolerated with assistive device as needed. He was again encouraged to obtain his custom ankle-foot orthotic to address his dropfoot and contraction of his right lower extremity. This order was provided over a month ago and he understands he is responsible for setting up this appointment. I answered all his questions.
--- NOTE | 2018-11-27 11:41 | NURSING ---
Daughter called, states [facility] Light keeps blinking and alarming. States they keep turning it off and on. Instructed daughter to stop turning in off and on, and to call their HH agency to come check on it. Also state it;s still to suction. tried to explain how the system works but she kept talking over me. Explained we have no Dr. this afternoon to see him and again instructed to call HH. States she would do this and to call in the morning if needed a Nurse Visit.
[2018-12-03 10:36] VITALS: BP 132/72; PULSE 74; RESP 18; TEMP 36.6; BMI 22.4
--- NOTE | 2018-12-03 11:32 | PN.PCM_ITS ---
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 Status: Chronic Current Visit: Yes Code(s): L97.913 - Non-pressure chronic ulcer of unspecified part of right lower leg with necrosis of muscle (2) Abscess of right leg Status: Resolved Current Visit: Yes Code(s): L02.415 - Cutaneous abscess of right lower limb (3) Infection Status: Resolved Current Visit: Yes Code(s): B99.9 - Unspecified infectious disease (4) Foot drop, right Status: Chronic Current Visit: Yes Code(s): M21.371 - Foot drop, right foot (5) Difficulty walking Status: Chronic Current Visit: Yes Code(s): R26.2 - Difficulty in walking, not elsewhere classified (6) Pain in right lower leg Status: Chronic Current Visit: Yes Code(s): M79.661 - Pain in right lower leg (7) Delayed wound healing Status: Chronic Current Visit: Yes Code(s): T14.8XXD - Other injury of unspecified body region, subsequent encounter Type of Wound Date of Service: 12/03/18 Chief Complaint: Leg ulcer right History of Wound: Mr. Choe is a 68 year old with past medical history of atrial fibrillation, peripheral arterial disease status post left lower extremity stenting and tobacco abuse presents for follow-up of right leg ulcer. He had a reported deep venous thrombosis of the right leg and developed subsequent compartment syndrome previously. He underwent surgical fasciotomy on July 07 at [facility] and has a resultant chronic wound. He had a recent surgical debridement and serial application of advanced wound care product with delayed closure and application of wound VAC on 08/15/2018 and 08/19/2018, respectively. He also had a tendon debridement with versa jet application of amnio fill and epi cord again and application of sarah wound VAC. He is kept this clean and intact. Essentially he has had a chronic ulcer with exposed necrotic muscle since the end of June 2018. He is recently been approved for an additional sarah wound VAC. He was only able to tolerate the sarah wound VAC for 1 to 2 days because it kept leaking; this was removed and he went back to saline wet-to-dry dressings. He did yard work this past week and relates his right knee hurts. He is scheduled to get his ankle-foot orthotic fitting and casting at [facility] on December 22. Progress of Wound: -Healed proximal ulcer aspect. -Distal aspect improving. - Previous abscess area with ulcer healed and resolved - Physical Exam Vital Signs Temp Pulse Resp BP 97.8 F 74 18 132/72 H 12/03/18 10:36 12/03/18 10:36 12/03/18 10:36 12/03/18 10:36 General: Alert, Oriented x3, Cooperative, No apparent distress Extremities: No cyanosis, Capillary Refill Less than 3 Seconds, No Calf Tenderness - Negative Yen and Watts right, Diminished Peripheral Pulses, Edema - Mild right, - - Dropfoot and semi-reducible contraction in the equinus formation to the right lower extremity Skin: Ulcer/ Wound - No purulence, erythema, swelling, odor, infection. The ulcer bed is granular fibrous and there is no longer any exposed tendon, - - Peripheral skin is hairless and atrophic. Wound Measurements and Assessment WC - Nurse 1 - General Ulcer Measurement Start: 11/12/18 11:59 Freq: Status: Active Protocol: Activity Type Activity Date Activity User E-Sign Co-Sign Detail Recorded Client Recorded Date Recorded By Document 12/03/18 10:36 [id number] 12/03/18 10:48 12/03/18 10:36 Wound Center Nurse 1 [Ulcer Assessment] #2 right lower leg -Combined with other wound No -Current Size (cm) - Length 7 -Current Size (cm) - Width 3 -Current Size (cm) - Depth 0.5 -Total Square Cm 21 -Photo Taken No -Epithelialization None Present -Undermining/Tunneling No -Circular Undermining No -Exudate Amt Small -Exudate Type Serous -Wound Margin Thickened -Granulation Amt Small (1-33%) -Granulation Quality [place] -Necrosis Amt None Present (0 %) -Necrotic Tissue Type Adherent Slough -Texture (Denisa-wound Skin Appearance) No Abnormality, Assessed -Moisture (Denisa-wound Skin Appearance No Abnormality, ) Assessed -Color (Denisa-wound Skin Appearance) No Abnormality -Temperature (Denisa-wound Skin No Abnormality Appearance) (Pt Warm) -Tenderness on Palpation (Denisa-wound No Skin Appearance) -Ulcer Cleansing Rinsed/ Irrigated with Saline -Foul Odor after Cleansing No -Anesthetic Used 4% Lidocaine Solution,5% Lidocaine Gel [Edema Assessment] -Lower Limb Edema Present No WC - Nurse 2 - General Ulcer CM Notes Start: 11/12/18 11:59 Freq: Status: Active Protocol: Activity Type Activity Date Activity User E-Sign Co-Sign Detail Recorded Client Recorded Date Recorded By Document 12/03/18 10:58 [id number] 12/03/18 11:01 12/03/18 10:58 Wound Center Nurse 2 [Procedure/Treatment] #2 right lower leg -Time 10:59 -Correct Patient Yes -Correct Side, Site, Position Yes -Correct Procedure Yes -Procedure Performed Yes -Type of Procedure Debridement -Clinical Debridement Subcutaneous -Post Debridement Size (cm) - Length 6.7 -Post Debridement Size (cm) - Width 0.8 -Post Debridement Size (cm) - Depth 0.5 -Total Square Cm 5.36 -Wound/Ulcer Outcome Not Healed -Ulcer Cleansing Rinsed/ Irrigated with Saline -Foul Odor after Cleansing No -Bioengineered Tissue No -Bleeding Controlled with Pressure -Offloading No -Treatment Response Procedure Tolerated Well [See Physician Procedure note for Specifics] Pain Scale: 0-10 Numeric [Pain] -Is Patient Pain Free? Yes Musculoskeletal: No Muscle Wasting, Muscle Wasting Neurological: Sensory exam intact to light touch and pain Psych/Mental Status: Normal Affect, Appropriate Debridement Note Post-Debridement Measurements/Treatment WC - Nurse 2 - General Ulcer CM Notes Start: 11/12/18 11:59 Freq: Status: Active Protocol: Activity Type Activity Date Activity User E-Sign Co-Sign Detail Recorded Client Recorded Date Recorded By Document 11/12/18 12:22 AN [id number] 11/12/18 12:24 AN Document 11/20/18 13:33 AN [id number] 11/20/18 13:36 AN Document 11/26/18 11:54 AN [id number] 11/26/18 11:58 AN Document 12/03/18 10:58 [id number] 12/03/18 11:01 11/12/18 11/20/18 11/26/18 12:22 13:33 11:54 Wound Center Nurse 2 #2 right lower leg -Time 12:23 13:35 11:57 -Correct Patient Yes Yes Yes -Correct Side, Site, Position Yes Yes Yes -Correct Procedure Yes Yes -Procedure Performed Yes Yes -Type of Procedure Debridement Debridement Debridement -Clinical Debridement Subcutaneous Subcutaneous Subcutaneous -Post Debridement Size (cm) - Length 6.5 10.5 6.4 -Post Debridement Size (cm) - Width 0.9 0.8 1.0 -Post Debridement Size (cm) - Depth 0.5 0.5 0.8 -Total Square Cm 5.85 8.40 6.40 -Wound/Ulcer Outcome Not Healed Not Healed Not Healed -Ulcer Cleansing Rinsed/ Rinsed/ Rinsed/ Irrigated with Irrigated with Irrigated with Saline Saline Saline -Foul Odor after Cleansing No No -Bioengineered Tissue No No -Bleeding Controlled with Pressure Pressure Pressure -Offloading No -Type of Offloading Camwalker -Treatment Response Procedure Procedure Procedure Tolerated Well Tolerated Well Tolerated Well Pain Scale: 0-10 Numeric Is Patient Pain Free? Yes Yes Yes 12/03/18 10:58 Wound Center Nurse 2 #2 right lower leg -Time 10:59 -Correct Patient Yes -Correct Side, Site, Position Yes -Correct Procedure Yes -Procedure Performed Yes -Type of Procedure Debridement -Clinical Debridement Subcutaneous -Post Debridement Size (cm) - Length 6.7 -Post Debridement Size (cm) - Width 0.8 -Post Debridement Size (cm) - Depth 0.5 -Total Square Cm 5.36 -Wound/Ulcer Outcome Not Healed -Ulcer Cleansing Rinsed/ Irrigated with Saline -Foul Odor after Cleansing No -Bioengineered Tissue No -Bleeding Controlled with Pressure -Offloading No -Type of Offloading -Treatment Response Procedure Tolerated Well Pain Scale: 0-10 Numeric Is Patient Pain Free? Yes Wound debrided: lateral leg Laterality: Right Type of Debridement: Excisional debridement Anesthesia Used: 5% Lidocaine Gel Depth: in the subcutaneous layer Percentage of wound debrided: 100 Instrument Used: #15 blade Tissue Removed: fibrous, devitalized subcutaneous, biofilm, slough Severity: Fat Layer Exposed Amount of bleeding with debridement: Mild Bleeding Controlled with: Pressure Patient tolerated procedure well Assessment/Plan Active Problems (Last Reviewed 09/19/18 @ 09:44 by Rosa Isela Pat) Foot drop, right (Chronic) Difficulty walking (Chronic) Pain in right lower leg (Chronic) Delayed wound healing (Chronic) 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 New abscess right lower lateral leg. Peripheral vascular disease. Leg edema and rule out venous insufficiency. Malnutrition. Recent tobacco use. Walking difficulty. Pain in right limb lower. Contraction right lower extremity at ankle level. Right dropfoot Plan: Patient was carefully examined and evaluated today. The ulcer was debrided as noted in the clinical panel. I reviewed and discussed his case. No exposed tendon is noted. He is reassured no local signs of infection exist today. sarah wound VAC application was approved and applied today after Park and gauze to fill in the cavity. Patient to continue with daily dressing changes with sterile gauze packing daily. He understands and elects to proceed. To continue to eat and take meal supplements as tolerated. [place] prescription was previously provided and he was advised on proper use. To keep pressure off this ulcer by avoiding lying on his right lateral leg. To reduce unnecessary pressure by wearing a light Tubigrip compression garment. To continue CAM Walker weight- bear as tolerated with assistive device as needed. He was again encouraged to obtain his custom ankle-foot orthotic to address his dropfoot and contraction of his right lower extremity. To follow-up on December 22 as scheduled. I answered all his questions. To return to the wound healing center in 1 week or call sooner if he has any questions or concerns.
== END 2018-12-07 23:59 ==
LOC: WC 10:30
PROVIDERS: Family Provider Internal Medicine; PCP Internal Medicine; Referring Provider Podiatrist; Visit Provider Podiatrist
DX: I73.9 Peripheral vascular disease, unspecified (principal); R60.0 Localized edema; M21.371 Foot drop, right foot; L02.415 Cutaneous abscess of right lower limb; L97.812 Non-pressure chronic ulcer of other part of right lower leg with fat layer exposed; Z87.891 Personal history of nicotine dependence; I48.91 Unspecified atrial fibrillation; Z86.718 Personal history of other venous thrombosis and embolism
CPT/HCPCS: 11042; 80048; 85025; 85652; 86140; 87015; 87070; 87075; 87077; 87101; 87116; 87186; 87205; 87206; 87640; 97607

== ENCOUNTER → 2019-01-06 12:02 | Outpatient (CLI) | payer MEDICARE, MEDICAID, SELFPAY ==
[2018-12-31 10:52] VITALS: BMI 22.4
[2019-01-06 13:57] LABS: Absolute Lymphocyte Count 2.36 X10^3/uL (0.83-4.51); Basophil# 0.05 X10^3/uL; Basophil% 0.8 % (0-1); Eosinophil# 0.26 X10^3/uL; Eosinophils% 4.1 % (0-5); Hematocrit 37.1 % (40-54); Hemoglobin 11.4 g/dL (13.0-16.5); Lymphocyte # 2.36 X10^3/ul (4.0); Lymphocyte % 37.4 % (19-41); Mean Corp Hgb Conc 30.7 g/dL (32-36); Mean Corpuscular Hgb 23.7 pg (27.0-32.0); Mean Corpuscular Volume 77.1 fL (80-94); Mean Platelet Vol. 9.8 fl (6.2-12.0); Monocyte# 0.65 X10^3/uL; Monocyte% 10.3 % (0-10); NRBC Flagged by Analyzer 0 % (0-5); Neutrophil # 2.96 X10^3/uL (2.7-7.7); Neutrophil % 46.9 % (47-70); Platelet Count 300 K/mm3 (150-450); RBC Distribution Width SD 47.1 fl (35.1-43.9); Red Blood Count 4.81 M/mm3 (4.6-6.2); White Blood Count 6.3 K/mm3 (4.4-11.0)
[2019-01-06 14:23] LABS: ALB/GLOB Ratio 0.7 RATIO (0.9-2.4); AST(SGOT) 16 U/L (15-37); Alanine Aminotransfer ALT/SGPT 17 U/L (16-61); Albumin, Serum 3.5 g/dL (3.2-5.0); Alkaline Phosphatase 151 U/L (45-117); Anion Gap 9 (5-15); BUN 18 mg/dL (7-18); BUN/Creat Ratio 15.7 RATIO (10-20); Calcium,Total 9.1 mg/dL (8.5-10.1); Chloride 107 mmol/L (98-107); Cholesterol 200 mg/dL (200); Creatinine, Serum 1.15 mg/dL (0.70-1.30); EST Glomerular Filtration Rate 67 mL/min (>60); Est Glom Filt Rate - Afr Amer 82 mL/min (>60); Glucose 89 mg/dL (74-106); High Density Lipoprotein 36 mg/dL; Magnesium 2.2 mg/dL (1.6-2.6); Protein, Total 8.5 g/dL (6.4-8.2); Sodium Level 139 mmol/L (136-145); Thyroid Stim Hormone (TSH) 3.81 uIU/mL (0.358-3.74); Triglycerides 246 mg/dL; Very Low Density Lipoprotein 49 mg/dL (5-40)
[2019-01-07 09:24] LABS: Ferritin 12 ng/mL (26-388); Iron 32 ug/dL (65-175); T4 Free Direct 0.88 ng/dL (0.76-1.46)
== END ==
PROVIDERS: Family Provider Family Medicine; PCP Family Medicine; Referring Provider Family Medicine; Visit Provider Family Medicine
DX: I48.91 Unspecified atrial fibrillation (principal); I73.9 Peripheral vascular disease, unspecified; D50.9 Iron deficiency anemia, unspecified; R79.89 Other specified abnormal findings of blood chemistry
CPT/HCPCS: 36415; 80053; 80061; 82728; 83540; 83735; 84439; 84443; 85025

== ENCOUNTER 2019-01-07 10:30 | Outpatient (RCR) | payer MEDICARE, MEDICAID, SELFPAY ==
[2018-12-08 00:39] VITALS: BP 132/72; PULSE 74; RESP 18; TEMP 36.6
[2018-12-10 10:17] VITALS: BP 114/76; PULSE 77; RESP 18; TEMP 36.1; BMI 22.4
--- NOTE | 2018-12-10 11:04 | PN.PCM_ITS ---
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 Status: Chronic Current Visit: Yes Code(s): L97.913 - Non-pressure chronic ulcer of unspecified part of right lower leg with necrosis of muscle (2) Foot drop, right Status: Chronic Current Visit: Yes Code(s): M21.371 - Foot drop, right foot (3) Difficulty walking Status: Chronic Current Visit: Yes Code(s): R26.2 - Difficulty in walking, not elsewhere classified (4) Pain in right lower leg Status: Chronic Current Visit: Yes Code(s): M79.661 - Pain in right lower leg (5) Other specified peripheral vascular diseases Status: Chronic Current Visit: Yes Code(s): I73.89 - Other specified peripheral vascular diseases (6) Delayed wound healing Status: Chronic Current Visit: Yes Code(s): T14.8XXD - Other injury of unspecified body region, subsequent encounter (7) Malnutrition Status: Chronic Current Visit: Yes Code(s): E46 - Unspecified protein- calorie malnutrition Type of Wound Date of Service: 12/10/18 Chief Complaint: Leg ulcer right History of Wound: Mr. Choe is a 68 year old with past medical history of atrial fibrillation, peripheral arterial disease status post left lower extremity stenting and tobacco abuse presents for follow-up of right leg ulcer. He had a reported deep venous thrombosis of the right leg and developed subsequent compartment syndrome previously. He underwent surgical fasciotomy on July 07 at [facility] and has a resultant chronic wound. He had a recent surgical debridement and serial application of advanced wound care product with delayed closure and application of wound VAC on 08/15/2018 and 08/19/2018, respectively. He also had a tendon debridement with versa jet application of amnio fill and epi cord again and application of sarah wound VAC. He is kept this clean and intact. Essentially he has had a chronic ulcer with exposed necrotic muscle since the end of June 2018. He is recently been approved for an additional sarah wound VAC. He did add reinforcement strips to his wound VAC site and was able to keep it in place without leaks this past week. He is scheduled to get his ankle-foot orthotic fitting and casting at [facility] on December 22. Progress of Wound: -Healed proximal ulcer aspect. -Distal aspect improving. - Previous abscess area with ulcer healed and resolved - Physical Exam Vital Signs Temp Pulse Resp BP 97.0 F L 77 18 114/76 12/10/18 10:17 12/10/18 10:17 12/10/18 10:17 12/10/18 10:17 General: Alert, Oriented x3, Cooperative, No apparent distress HEENT: Atraumatic Extremities: No cyanosis, Capillary Refill Less than 3 Seconds, No Calf Tenderness - Negative, depressed sign right and compartments remain soft to palpate, Diminished Peripheral Pulses, Edema - Mild Skin: Ulcer/ Wound - No purulence, erythema, streaking, odor, or infection. The peripheral skin is hairless and atrophic. Wound Measurements and Assessment - Nurse 1 - General Ulcer Measurement Start: 12/10/18 10:15 Freq: Status: Active Protocol: Activity Type Activity Date Activity User E-Sign Co-Sign Detail Recorded Client Recorded Date Recorded By Document 12/10/18 10:17 WV [id number] 12/10/18 10:19 W[place] 12/10/18 10:17 Wound Center Nurse 1 [Ulcer Assessment] #2 right lower leg -Current Size (cm) - Length 7 -Current Size (cm) - Width 0.5 -Current Size (cm) - Depth 0.9 -Total Square Cm 3.5 -Exudate Amt Medium -Exudate Type Serosanguineous -Wound Margin Thickened & Rolled Under -Granulation Amt Medium (34-66%) -Granulation Quality [place] -Necrosis Amt Medium (34-66%) -Necrotic Tissue Type Adherent Slough -Texture (Denisa-wound Skin Appearance) Assessed -Moisture (Denisa-wound Skin Appearance Assessed ) -Color (Denisa-wound Skin Appearance) Assessed -Temperature (Denisa-wound Skin No Abnormality Appearance) (Pt Warm) -Tenderness on Palpation (Denisa-wound No Skin Appearance) -Ulcer Cleansing Wound Cleanser -Anesthetic Used 5% Lidocaine Gel [Edema Assessment] -Right Calf (cm) 32 -Right Ankle (cm) 21 - Nurse 2 - General Ulcer CM Notes Start: 12/10/18 10:15 Freq: Status: Active Protocol: Activity Type Activity Date Activity User E-Sign Co-Sign Detail Recorded Client Recorded Date Recorded By Document 12/10/18 10:37 [id number] 12/10/18 10:40 12/10/18 10:37 Wound Center Nurse 2 [Procedure/Treatment] #2 right lower leg -Time 10:39 -Correct Patient Yes -Correct Side, Site, Position Yes -Correct Procedure Yes -Procedure Performed Yes -Type of Procedure Debridement -Clinical Debridement Subcutaneous -Post Debridement Size (cm) - Length 6.3 -Post Debridement Size (cm) - Width 0.7 -Post Debridement Size (cm) - Depth 0.5 -Total Square Cm 4.41 -Wound/Ulcer Outcome Not Healed -Ulcer Cleansing Rinsed/ Irrigated with Saline -Foul Odor after Cleansing No -Bioengineered Tissue No -Bleeding Controlled with Pressure -Offloading Yes -Type of Offloading Camwalker -Treatment Response Procedure Tolerated Well [See Physician Procedure note for Specifics] Pain Scale: 0-10 Numeric [Pain] -Is Patient Pain Free? Yes Musculoskeletal: No Tenderness to Palpation of Joints or Extremities, Muscle Wasting Neurological: Sensory exam intact to light touch and pain, - Psych/Mental Status: Normal Affect, Appropriate Debridement Note Post-Debridement Measurements/Treatment WC - Nurse 2 - General Ulcer CM Notes Start: 12/10/18 10:15 Freq: Status: Active Protocol: Activity Type Activity Date Activity User E-Sign Co-Sign Detail Recorded Client Recorded Date Recorded By Document 12/10/18 10:37 [email or web address] [id number] 12/10/18 10:40 [email or web address] 12/10/18 10:37 Wound Center Nurse 2 #2 right lower leg -Time 10:39 -Correct Patient Yes -Correct Side, Site, Position Yes -Correct Procedure Yes -Procedure Performed Yes -Type of Procedure Debridement -Clinical Debridement Subcutaneous -Post Debridement Size (cm) - Length 6.3 -Post Debridement Size (cm) - Width 0.7 -Post Debridement Size (cm) - Depth 0.5 -Total Square Cm 4.41 -Wound/Ulcer Outcome Not Healed -Ulcer Cleansing Rinsed/ Irrigated with Saline -Foul Odor after Cleansing No -Bioengineered Tissue No -Bleeding Controlled with Pressure -Offloading Yes -Type of Offloading Camwalker -Treatment Response Procedure Tolerated Well Pain Scale: 0-10 Numeric Is Patient Pain Free? Yes Wound debrided: lateral leg Laterality: Right Type of Debridement: Excisional debridement Anesthesia Used: 5% Lidocaine Gel Depth: in the subcutaneous layer Percentage of wound debrided: 100 Instrument Used: #15 blade Tissue Removed: fibrous, devitalized subcutaneous, biofilm, slough Severity: Fat Layer Exposed Amount of bleeding with debridement: Mild Bleeding Controlled with: Pressure Patient tolerated procedure well Assessment/Plan Active Problems (Last Reviewed 09/19/18 @ 09:44 by Rosa Isela Pat) Foot drop, right (Chronic) Difficulty walking (Chronic) Pain in right lower leg (Chronic) Other specified peripheral vascular diseases (Chronic) Delayed wound healing (Chronic) Malnutrition (Chronic) 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 New abscess right lower lateral leg. Peripheral vascular disease. Leg edema and rule out venous insufficiency. Malnutrition. Recent tobacco use. Walking difficulty. Pain in right limb lower. Contraction right lower extremity at ankle level. Right dropfoot Plan: Patient was carefully examined and evaluated today. The ulcer was debrided as noted in the clinical panel. I reviewed and discussed his case. No exposed tendon is noted. He is reassured no local signs of infection exist today. sarah wound VAC application was approved and applied today after Park and gauze to fill in the cavity. Patient to continue with daily dressing changes with sterile gauze packing daily. He understands and elects to proceed. To continue to eat and take meal supplements as tolerated. [place] prescription was previously provided and he was advised on proper use. To keep pressure off this ulcer by avoiding lying on his right lateral leg. To reduce unnecessary pressure by wearing a light Tubigrip compression garment. To continue CAM Walker weight- bear as tolerated with assistive device as needed. He was again encouraged to obtain his custom ankle-foot orthotic to address his dropfoot and contraction of his right lower extremity. To follow-up on December 22 as scheduled. I answered all his questions. To return to the wound healing center in 1 week or call sooner if he has any questions or concerns.
[2018-12-17 10:23] VITALS: BP 118/68; PULSE 73; RESP 18; TEMP 36.7; BMI 22.4
--- NOTE | 2018-12-17 11:22 | PCM.WC.PN ---
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 Status: Chronic Current Visit: Yes Code(s): L97.913 - Non-pressure chronic ulcer of unspecified part of right lower leg with necrosis of muscle (2) Foot drop, right Status: Chronic Current Visit: Yes Code(s): M21.371 - Foot drop, right foot (3) Difficulty walking Status: Chronic Current Visit: Yes Code(s): R26.2 - Difficulty in walking, not elsewhere classified (4) Pain in right lower leg Status: Chronic Current Visit: Yes Code(s): M79.661 - Pain in right lower leg (5) Other specified peripheral vascular diseases Status: Chronic Current Visit: Yes Code(s): I73.89 - Other specified peripheral vascular diseases (6) Delayed wound healing Status: Chronic Current Visit: Yes Code(s): T14.8XXD - Other injury of unspecified body region, subsequent encounter (7) Malnutrition Status: Chronic Current Visit: Yes Code(s): E46 - Unspecified protein-calorie malnutrition Type of Wound Date of Service: 12/17/18 Chief Complaint: Leg ulcer right History of Wound: Mr. Choe is a 68 year old with past medical history of atrial fibrillation, peripheral arterial disease status post left lower extremity stenting and tobacco abuse presents for follow-up of right leg ulcer. He had a reported deep venous thrombosis of the right leg and developed subsequent compartment syndrome previously. He underwent surgical fasciotomy on July 07 at [facility] and has a resultant chronic wound. He had a recent surgical debridement and serial application of advanced wound care product with delayed closure and application of wound VAC on 08/15/2018 and 08/19/2018, respectively. He also had a tendon debridement with versa jet application of amnio fill and epi cord again and application of sarah wound VAC. He is kept this clean and intact. Essentially he has had a chronic ulcer with exposed necrotic muscle since the end of June 2018. He is recently been approved for an additional sarah wound VAC. He was able to keep his wound VAC intact and in place this past week. He is scheduled to get his ankle-foot orthotic fitting and casting at [facility] on December 22. Progress of Wound: Improving - Physical Exam Vital Signs Temp Pulse Resp BP 98.1 F 73 18 118/68 12/17/18 10:23 12/17/18 10:23 12/17/18 10:23 12/17/18 10:23 General: Alert, Oriented x3, Cooperative, No apparent distress Extremities: No cyanosis, Capillary Refill Less than 3 Seconds, No Calf Tenderness - Negative Watts right lower extremity, Diminished Peripheral Pulses, Edema - Mild right, - - Dropfoot and contraction of right lower extremity Skin: Ulcer/ Wound - No purulence, erythema hamstring, odor, infection. Continue peripheral epithelialization is noted. There is fibrous and granular tissue noted in the ulcer bed. The peripheral skin is hairless and atrophic Wound Measurements and Assessment WC - Nurse 1 - General Ulcer Measurement Start: 12/10/18 10:15 Freq: Status: Active Protocol: Activity Type Activity Date Activity User E-Sign Co-Sign Detail Recorded Client Recorded Date Recorded By Document 12/17/18 10:23 RB [id number] 12/17/18 10:35 RB 12/17/18 10:23 Wound Center Nurse 1 [Ulcer Assessment] #2 right lower leg -Combined with other wound No -Current Size (cm) - Length 0.2 -Current Size (cm) - Width 6.4 -Current Size (cm) - Depth 0.3 -Total Square Cm 1.28 -Epithelialization Large 67-100% -Tunneling No -Undermining/Tunneling No -Circular Undermining No -Exudate Amt Medium -Exudate Type Serosanguineous -Wound Margin Thickened & Rolled Under -Granulation Amt Large (67-100%) -Granulation Quality [place] -Slough/Fibrin Yes -Necrosis Amt Small (1-33%) -Necrotic Tissue Type Adherent Slough -Structure Exposed N/A -Texture (Denisa-wound Skin Appearance) Assessed -Moisture (Denisa-wound Skin Appearance Assessed ) -Color (Denisa-wound Skin Appearance) Assessed -Temperature (Denisa-wound Skin No Abnormality Appearance) (Pt Warm) -Tenderness on Palpation (Denisa-wound No Skin Appearance) -Ulcer Cleansing Wound Cleanser -Foul Odor after Cleansing No -Anesthetic Used 4% Lidocaine Solution WC - Nurse 2 - General Ulcer CM Notes Start: 12/10/18 10:15 Freq: Status: Active Protocol: Activity Type Activity Date Activity User E-Sign Co-Sign Detail Recorded Client Recorded Date Recorded By Document 12/17/18 11:07 [email or web address] [id number] 12/17/18 11:08 12/17/18 11:07 Wound Center Nurse 2 [Procedure/Treatment] -Time 11:08 -Correct Patient Yes -Correct Side, Site, Position Yes -Correct Procedure Yes -Procedure Performed Yes -Type of Procedure Debridement -Clinical Debridement Subcutaneous -Post Debridement Size (cm) - Length 6.9 -Post Debridement Size (cm) - Width 0.3 -Post Debridement Size (cm) - Depth 0.3 -Total Square Cm 2.07 -Wound/Ulcer Outcome Not Healed -Ulcer Cleansing Rinsed/ Irrigated with Saline -Foul Odor after Cleansing No -Bioengineered Tissue No -Bleeding Controlled with Pressure -Offloading No -Treatment Response Procedure Tolerated Well [See Physician Procedure note for Specifics] Pain Scale: 0-10 Numeric [Pain] -Is Patient Pain Free? Yes Musculoskeletal: No Tenderness to Palpation of Joints or Extremities, Muscle Wasting Neurological: Sensory exam intact to light touch and pain Psych/Mental Status: Normal Affect, Appropriate Debridement Note Post-Debridement Measurements/Treatment WC - Nurse 2 - General Ulcer CM Notes Start: 12/10/18 10:15 Freq: Status: Active Protocol: Activity Type Activity Date Activity User E-Sign Co-Sign Detail Recorded Client Recorded Date Recorded By Document 12/10/18 10:37 [id number] 12/10/18 10:40 Document 12/17/18 11:07 [id number] 12/17/18 11:08 12/10/18 12/17/18 10:37 11:07 Wound Center Nurse 2 #2 right lower leg -Time 10:39 11:08 -Correct Patient Yes Yes -Correct Side, Site, Position Yes Yes -Correct Procedure Yes Yes -Procedure Performed Yes Yes -Type of Procedure Debridement Debridement -Clinical Debridement Subcutaneous Subcutaneous -Post Debridement Size (cm) - Length 6.3 6.9 -Post Debridement Size (cm) - Width 0.7 0.3 -Post Debridement Size (cm) - Depth 0.5 0.3 -Total Square Cm 4.41 2.07 -Wound/Ulcer Outcome Not Healed Not Healed -Ulcer Cleansing Rinsed/ Rinsed/ Irrigated with Irrigated with Saline Saline -Foul Odor after Cleansing No No -Bioengineered Tissue No No -Bleeding Controlled with Pressure Pressure -Offloading Yes No -Type of Offloading Camwalker -Treatment Response Procedure Procedure Tolerated Well Tolerated Well Pain Scale: 0-10 Numeric Is Patient Pain Free? Yes Yes Wound debrided: lateral leg Laterality: Right Type of Debridement: Excisional debridement Anesthesia Used: 5% Lidocaine Gel Depth: in the subcutaneous layer Percentage of wound debrided: 100 Instrument Used: #15 blade Tissue Removed: Devitalized subcutaneous, fibers, biofilm, slough Severity: Fat Layer Exposed Amount of bleeding with debridement: Mild Bleeding Controlled with: Pressure Patient tolerated procedure well Assessment/Plan Active Problems (Last Reviewed 09/19/18 @ 09:44 by Rosa Isela Pat) Foot drop, right (Chronic) Difficulty walking (Chronic) Pain in right lower leg (Chronic) Other specified peripheral vascular diseases (Chronic) Delayed wound healing (Chronic) Malnutrition (Chronic) 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 Peripheral vascular disease. Leg edema and rule out venous insufficiency. Malnutrition. Recent tobacco use. Walking difficulty. Pain in right limb lower. Contraction right lower extremity at ankle level. Right dropfoot Plan: Patient was carefully examined and evaluated today. The ulcer was debrided as noted in the clinical panel. I reviewed and discussed his case. No exposed tendon is noted. He is reassured no local signs of infection exist today. To change dressing daily with [employer]; this was applied today. To continue to eat and take meal supplements as tolerated. [place] prescription was previously provided and he was advised on proper use. To keep pressure off this ulcer by avoiding lying on his right lateral leg. To reduce unnecessary pressure by wearing a light Tubigrip compression garment. To continue CAM Walker weight-bear as tolerated with assistive device as needed. He was again encouraged to obtain his custom ankle-foot orthotic to address his dropfoot and contraction of his right lower extremity. To follow-up on December 22 as scheduled. I answered all his questions. To return to the wound healing center in 1 week or call sooner if he has any questions or concerns.
[2018-12-24 10:09] VITALS: BP 144/77; PULSE 68; RESP 16; TEMP 36.4; BMI 22.4
--- NOTE | 2018-12-24 11:07 | PCM.WC.PN ---
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 Status: Chronic Current Visit: Yes Code(s): L97.913 - Non-pressure chronic ulcer of unspecified part of right lower leg with necrosis of muscle (2) Foot drop, right Status: Chronic Current Visit: Yes Code(s): M21.371 - Foot drop, right foot (3) Difficulty walking Status: Chronic Current Visit: Yes Code(s): R26.2 - Difficulty in walking, not elsewhere classified (4) Pain in right lower leg Status: Chronic Current Visit: Yes Code(s): M79.661 - Pain in right lower leg (5) Other specified peripheral vascular diseases Status: Chronic Current Visit: Yes Code(s): I73.89 - Other specified peripheral vascular diseases (6) Delayed wound healing Status: Chronic Current Visit: Yes Code(s): T14.8XXD - Other injury of unspecified body region, subsequent encounter (7) Malnutrition Status: Chronic Current Visit: Yes Code(s): E46 - Unspecified protein-calorie malnutrition Type of Wound Date of Service: 12/24/18 Chief Complaint: Leg ulcer right History of Wound: Mr. Choe is a 68 year old with past medical history of atrial fibrillation, peripheral arterial disease status post left lower extremity stenting and tobacco abuse presents for follow-up of right leg ulcer. He had a reported deep venous thrombosis of the right leg and developed subsequent compartment syndrome previously. He underwent surgical fasciotomy on July [address] [facility] and has a resultant chronic wound. He had a recent surgical debridement and serial application of advanced wound care product with delayed closure and application of wound VAC on 08/15/2018 and 08/19/2018, respectively. He also had a tendon debridement with versa jet application of amnio fill and epi cord again and application of sarah wound VAC. He is kept this clean and intact. Essentially he has had a chronic ulcer with exposed necrotic muscle since the end of June 2018. He is working with [employer] to get his custom ankle-foot orthotics. He is weightbearing in a cam walker today. Progress of Wound: Improving - Physical Exam Vital Signs Temp Pulse Resp BP 97.5 F L 68 16 144/77 H 12/24/18 10:09 12/24/18 10:09 12/24/18 10:09 12/24/18 10:09 General: Alert, Oriented x3, Cooperative, No apparent distress Extremities: No cyanosis, Capillary Refill Less than 3 Seconds, No Calf Tenderness - Negative Watts sign right, Diminished Peripheral Pulses, Edema - Mild Skin: Ulcer/ Wound - No purulence, erythema, string, odor or infection Wound Measurements and Assessment WC - Nurse 1 - General Ulcer Measurement Start: 12/10/18 10:15 Freq: Status: Active Protocol: Activity Type Activity Date Activity User E-Sign Co-Sign Detail Recorded Client Recorded Date Recorded By Document 12/24/18 10:[address] [facility] [id number] 12/24/18 10:[address] [facility] 12/24/18 10:09 Wound Center Nurse 1 [Ulcer Assessment] #2 right lower leg -Combined with other wound No -Current Size (cm) - Length 6.2 -Current Size (cm) - Width 0.2 -Current Size (cm) - Depth 0.5 -Total Square Cm 1.24 -Photo Taken No -Epithelialization None Present -Tunneling No -Undermining/Tunneling No -Circular Undermining No -Exudate Amt Small -Exudate Type Serous -Wound Margin Thickened & Rolled Under -Granulation Amt None Present (0 %) -Slough/Fibrin Yes -Necrosis Amt Large (67-100%) -Necrotic Tissue Type Adherent Slough -Texture (Denisa-wound Skin Appearance) Assessed, Scarring -Moisture (Denisa-wound Skin Appearance Assessed ) -Color (Denisa-wound Skin Appearance) Assessed -Temperature (Denisa-wound Skin No Abnormality Appearance) (Pt Warm) -Tenderness on Palpation (Denisa-wound Yes Skin Appearance) -Ulcer Cleansing Rinsed/ Irrigated with Saline -Foul Odor after Cleansing No -Anesthetic Used 5% Lidocaine Gel WC - Nurse 2 - General Ulcer CM Notes Start: 12/10/18 10:15 Freq: Status: Active Protocol: Activity Type Activity Date Activity User E-Sign Co-Sign Detail Recorded Client Recorded Date Recorded By Document 12/24/18 10:36 AN [id number] 12/24/18 10:38 AN 12/24/18 10:36 Wound Center Nurse 2 [Procedure/Treatment] -Time 10:38 -Correct Patient Yes -Correct Side, Site, Position Yes -Correct Procedure Yes -Procedure Performed Yes -Type of Procedure Debridement -Clinical Debridement Subcutaneous -Post Debridement Size (cm) - Length 6.3 -Post Debridement Size (cm) - Width 0.3 -Post Debridement Size (cm) - Depth 0.5 -Total Square Cm 1.89 -Wound/Ulcer Outcome Not Healed -Ulcer Cleansing Rinsed/ Irrigated with Saline -Bleeding Controlled with Pressure -Offloading Yes -Treatment Response Procedure Tolerated Well [See Physician Procedure note for Specifics] Pain Scale: 0-10 Numeric [Pain] -Is Patient Pain Free? Yes Musculoskeletal: No Tenderness to Palpation of Joints or Extremities, Muscle Wasting Neurological: Sensory exam intact to light touch and pain Psych/Mental Status: Normal Affect, Appropriate Debridement Note Post-Debridement Measurements/Treatment WC - Nurse 2 - General Ulcer CM Notes Start: 12/10/18 10:15 Freq: Status: Active Protocol: Activity Type Activity Date Activity User E-Sign Co-Sign Detail Recorded Client Recorded Date Recorded By Document 12/10/18 10:37 [id number] 12/10/18 10:40 JF Document 12/17/18 11:07 [id number] 12/17/18 11:08 Document 12/24/18 10:36 AN [id number] 12/24/18 10:38 AN 12/10/18 12/17/18 12/24/18 10:37 11:07 10:36 Wound Center Nurse 2 #2 right lower leg -Time 10:39 11:08 10:38 -Correct Patient Yes Yes Yes -Correct Side, Site, Position Yes Yes Yes -Correct Procedure Yes Yes Yes -Procedure Performed Yes Yes Yes -Type of Procedure Debridement Debridement Debridement -Clinical Debridement Subcutaneous Subcutaneous Subcutaneous -Post Debridement Size (cm) - Length 6.3 6.9 6.3 -Post Debridement Size (cm) - Width 0.7 0.3 0.3 -Post Debridement Size (cm) - Depth 0.5 0.3 0.5 -Total Square Cm 4.41 2.07 1.89 -Wound/Ulcer Outcome Not Healed Not Healed Not Healed -Ulcer Cleansing Rinsed/ Rinsed/ Rinsed/ Irrigated with Irrigated with Irrigated with Saline Saline Saline -Foul Odor after Cleansing No No -Bioengineered Tissue No No -Bleeding Controlled with Pressure Pressure Pressure -Offloading Yes No Yes -Type of Offloading Camwalker -Treatment Response Procedure Procedure Procedure Tolerated Well Tolerated Well Tolerated Well Pain Scale: 0-10 Numeric Is Patient Pain Free? Yes Yes Yes Wound debrided: lateral leg Laterality: Right Type of Debridement: Excisional debridement Anesthesia Used: 5% Lidocaine Gel Depth: in the subcutaneous layer Percentage of wound debrided: 100 Instrument Used: #15 blade Tissue Removed: fibrous, devitalized subcutaneous, biofilm, slough Severity: Fat Layer Exposed Amount of bleeding with debridement: Mild Bleeding Controlled with: Pressure Patient tolerated procedure well Assessment/Plan Active Problems (Last Reviewed 09/19/18 @ 09:44 by Rosa Isela Pat) Foot drop, right (Chronic) Difficulty walking (Chronic) Pain in right lower leg (Chronic) Other specified peripheral vascular diseases (Chronic) Delayed wound healing (Chronic) Malnutrition (Chronic) 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 Peripheral vascular disease. Leg edema and rule out venous insufficiency. Malnutrition. Recent tobacco use. Walking difficulty. Pain in right limb lower. Contraction right lower extremity at ankle level. Right dropfoot Plan: Patient was carefully examined and evaluated today. The ulcer was debrided as noted in the clinical panel. I reviewed and discussed his case. No exposed tendon is noted. He is reassured no local signs of infection exist today. [place] and a sarah wound VAC were applied today; to keep intact this next week. To continue to eat and take meal supplements as tolerated. [place] prescription was previously provided and he was advised on proper use. To keep pressure off this ulcer by avoiding lying on his right lateral leg. To reduce unnecessary pressure by wearing a light Tubigrip compression garment. To continue CAM Walker weight-bear as tolerated with assistive device as needed. He was again encouraged to obtain his custom ankle-foot orthotic to address his dropfoot and contraction of his right lower extremity. To follow-up on December 22 as scheduled. I answered all his questions. To return to the wound healing center in 1 week or call sooner if he has any questions or concerns.
[2018-12-31 10:52] VITALS: BP 147/75; PULSE 76; RESP 18; TEMP 37; BMI 22.4
--- NOTE | 2018-12-31 12:13 | PN.PCM_ITS ---
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 Status: Chronic Current Visit: Yes Code(s): L97.913 - Non-pressure chronic ulcer of unspecified part of right lower leg with necrosis of muscle (2) Foot drop, right Status: Chronic Current Visit: Yes Code(s): M21.371 - Foot drop, right foot (3) Difficulty walking Status: Chronic Current Visit: Yes Code(s): R26.2 - Difficulty in walking, not elsewhere classified (4) Pain in right lower leg Status: Chronic Current Visit: Yes Code(s): M79.661 - Pain in right lower leg (5) Other specified peripheral vascular diseases Status: Chronic Current Visit: Yes Code(s): I73.89 - Other specified peripheral vascular diseases (6) Delayed wound healing Status: Chronic Current Visit: Yes Code(s): T14.8XXD - Other injury of unspecified body region, subsequent encounter (7) Malnutrition Status: Chronic Current Visit: Yes Code(s): E46 - Unspecified protein- calorie malnutrition Type of Wound Date of Service: 12/31/18 Chief Complaint: Leg ulcer right History of Wound: Mr. Choe is a 68 year old with past medical history of atrial fibrillation, peripheral arterial disease status post left lower extremity stenting and tobacco abuse presents for follow-up of right leg ulcer. He had a reported deep venous thrombosis of the right leg and developed subsequent compartment syndrome previously. He underwent surgical fasciotomy on July 07 at [facility] and has a resultant chronic wound. He had a recent surgical debridement and serial application of advanced wound care product with delayed closure and application of wound VAC on 08/15/2018 and 08/19/2018, respectively. He also had a tendon debridement with versa jet application of amnio fill and epi cord again and application of sarah wound VAC. He is kept this clean and intact. Essentially he has had a chronic ulcer with exposed necrotic muscle since the end of June 2018. He is working with [facility] to get his custom ankle-foot orthotics. He is scheduled to get fitted for this in about 2 weeks. He is weightbearing in a cam walker today. Progress of Wound: Improving - Physical Exam Vital Signs Temp Pulse Resp BP 98.6 F 76 18 147/75 H 12/31/18 10:52 12/31/18 10:52 12/31/18 10:52 12/31/18 10:52 General: Alert, Oriented x3, Cooperative, No apparent distress Extremities: No cyanosis, Capillary Refill Less than 3 Seconds, No Calf Tenderness, Diminished Peripheral Pulses, Edema, - - Dropfoot right Skin: Ulcer/ Wound - Peripheral epithelialization is noted. There is no purulence, erythema, streaking, odor, or infection. No tendon exposure noted Wound Measurements and Assessment WC - Nurse 1 - General Ulcer Measurement Start: 12/10/18 10:15 Freq: Status: Active Protocol: Activity Type Activity Date Activity User E-Sign Co-Sign Detail Recorded Client Recorded Date Recorded By Document 12/31/18 10:52 [id number] 12/31/18 11:13 12/31/18 10:52 Wound Center Nurse 1 [Ulcer Assessment] #2 right lower leg -Combined with other wound No -Current Size (cm) - Length 4.5 -Current Size (cm) - Width 0.3 -Current Size (cm) - Depth 0.4 -Total Square Cm 1.35 -Photo Taken No -Epithelialization None Present -Undermining/Tunneling No -Circular Undermining No -Exudate Amt Medium -Exudate Type Serosanguineous -Wound Margin Distinct, Outline Attached -Granulation Amt Large (67-100%) -Granulation Quality Pale -Slough/Fibrin Yes -Necrosis Amt Small (1-33%) -Necrotic Tissue Type Adherent Slough -Structure Exposed None/Limited to Skin Breakdown -Moisture (Denisa-wound Skin Appearance No Abnormality, ) Assessed -Color (Denisa-wound Skin Appearance) No Abnormality, Assessed -Temperature (Denisa-wound Skin No Abnormality Appearance) (Pt Warm) -Tenderness on Palpation (Denisa-wound No Skin Appearance) -Foul Odor after Cleansing No -Anesthetic Used 4% Lidocaine Solution [Edema Assessment] -Lower Limb Edema Present No WC - Nurse 2 - General Ulcer CM Notes Start: 12/10/18 10:15 Freq: Status: Active Protocol: Activity Type Activity Date Activity User E-Sign Co-Sign Detail Recorded Client Recorded Date Recorded By Document 12/31/18 11:17 COURTNEY [id number] 12/31/18 11:19 COURTNEY 12/31/18 11:17 Wound Center Nurse 2 [Procedure/Treatment] #2 right lower leg -Time 11:17 -Correct Patient Yes -Correct Side, Site, Position Yes -Correct Procedure Yes -Procedure Performed Yes -Type of Procedure Debridement -Clinical Debridement Subcutaneous -Post Debridement Size (cm) - Length 4.7 -Post Debridement Size (cm) - Width 0.4 -Post Debridement Size (cm) - Depth 0.4 -Total Square Cm 1.88 -Wound/Ulcer Outcome Not Healed -Ulcer Cleansing Rinsed/ Irrigated with Saline -Foul Odor after Cleansing No -Bioengineered Tissue No -Bleeding Controlled with Pressure -Offloading No -Treatment Response Procedure Tolerated Well [See Physician Procedure note for Specifics] Pain Scale: 0-10 Numeric [Pain] -Is Patient Pain Free? Yes Musculoskeletal: No Tenderness to Palpation of Joints or Extremities, Muscle Wasting Neurological: Sensory exam intact to light touch and pain Psych/Mental Status: Normal Affect, Appropriate Debridement Note Post-Debridement Measurements/Treatment WC - Nurse 2 - General Ulcer CM Notes Start: 12/10/18 10:15 Freq: Status: Active Protocol: Activity Type Activity Date Activity User E-Sign Co-Sign Detail Recorded Client Recorded Date Recorded By Document 12/10/18 10:37 [id number] 12/10/18 10:40 Document 12/17/18 11:07 [id number] 12/17/18 11:08 Document 12/24/18 10:36 AN [id number] 12/24/18 10:38 AN Document 12/31/18 11:17 AN [id number] 12/31/18 11:19 AN 12/10/18 12/17/18 12/24/18 10:37 11:07 10:36 Wound Center Nurse 2 #2 right lower leg -Time 10:39 11:08 10:38 -Correct Patient Yes Yes Yes -Correct Side, Site, Position Yes Yes Yes -Correct Procedure Yes Yes Yes -Procedure Performed Yes Yes Yes -Type of Procedure Debridement Debridement Debridement -Clinical Debridement Subcutaneous Subcutaneous Subcutaneous -Post Debridement Size (cm) - Length 6.3 6.9 6.3 -Post Debridement Size (cm) - Width 0.7 0.3 0.3 -Post Debridement Size (cm) - Depth 0.5 0.3 0.5 -Total Square Cm 4.41 2.07 1.89 -Wound/Ulcer Outcome Not Healed Not Healed Not Healed -Ulcer Cleansing Rinsed/ Rinsed/ Rinsed/ Irrigated with Irrigated with Irrigated with Saline Saline Saline -Foul Odor after Cleansing No No -Bioengineered Tissue No No -Bleeding Controlled with Pressure Pressure Pressure -Offloading Yes No Yes -Type of Offloading Camwalker -Treatment Response Procedure Procedure Procedure Tolerated Well Tolerated Well Tolerated Well Pain Scale: 0-10 Numeric Is Patient Pain Free? Yes Yes Yes 12/31/18 11:17 Wound Center Nurse 2 #2 right lower leg -Time 11:17 -Correct Patient Yes -Correct Side, Site, Position Yes -Correct Procedure Yes -Procedure Performed Yes -Type of Procedure Debridement -Clinical Debridement Subcutaneous -Post Debridement Size (cm) - Length 4.7 -Post Debridement Size (cm) - Width 0.4 -Post Debridement Size (cm) - Depth 0.4 -Total Square Cm 1.88 -Wound/Ulcer Outcome Not Healed -Ulcer Cleansing Rinsed/ Irrigated with Saline -Foul Odor after Cleansing No -Bioengineered Tissue No -Bleeding Controlled with Pressure -Offloading No -Type of Offloading -Treatment Response Procedure Tolerated Well Pain Scale: 0-10 Numeric Is Patient Pain Free? Yes Wound debrided: lateral leg Laterality: Right Type of Debridement: Excisional debridement Anesthesia Used: 5% Lidocaine Gel Depth: in the subcutaneous layer Percentage of wound debrided: 100 Instrument Used: #15 blade Tissue Removed: fibrous, devitalized subcutaneous, biofilm, slough Severity: Fat Layer Exposed Amount of bleeding with debridement: Mild Bleeding Controlled with: Pressure Patient tolerated procedure well Assessment/Plan Active Problems (Last Reviewed 09/19/18 @ 09:44 by Rosa Isela Pat) Foot drop, right (Chronic) Difficulty walking (Chronic) Pain in right lower leg (Chronic) Other specified peripheral vascular diseases (Chronic) Delayed wound healing (Chronic) Malnutrition (Chronic) 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 Peripheral vascular disease. Leg edema and rule out venous insufficiency. Malnutrition. Recent tobacco use. Walking difficulty. Pain in right limb lower. Contraction right lower extremity at ankle level. Right dropfoot Plan: Patient was carefully examined and evaluated today. The ulcer was debrided as noted in the clinical panel. I reviewed and discussed his case. No exposed tendon is noted. He is reassured no local signs of infection exist today. Park and a sarah wound VAC were applied today; to keep intact this next week. To continue to eat and take meal supplements as tolerated. [place] prescription was previously provided and he was advised on proper use. To keep pressure off this ulcer by avoiding lying on his right lateral leg. To reduce unnecessary pressure by wearing a light Tubigrip compression garment. To continue CAM Walker weight-bear as tolerated with assistive device as needed. He was again encouraged to obtain his custom ankle-foot orthotic to address his dropfoot and contraction of his right lower extremity. To follow-up for fitting and dispersal in about 2 weeks. I answered all his questions. To return to the wound healing center in 1 week or call sooner if he has any questions or concerns.
[2019-01-07 10:42] VITALS: BP 135/79; PULSE 81; RESP 18; TEMP 36.5; BMI 22.4
--- NOTE | 2019-01-07 11:42 | PN.PCM_ITS ---
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 Status: Chronic Current Visit: Yes Code(s): L97.913 - Non-pressure chronic ulcer of unspecified part of right lower leg with necrosis of muscle (2) Foot drop, right Status: Chronic Current Visit: Yes Code(s): M21.371 - Foot drop, right foot (3) Difficulty walking Status: Chronic Current Visit: Yes Code(s): R26.2 - Difficulty in walking, not elsewhere classified (4) Pain in right lower leg Status: Chronic Current Visit: Yes Code(s): M79.661 - Pain in right lower leg (5) Other specified peripheral vascular diseases Status: Chronic Current Visit: Yes Code(s): I73.89 - Other specified peripheral vascular diseases (6) Delayed wound healing Status: Chronic Current Visit: Yes Code(s): T14.8XXD - Other injury of unspecified body region, subsequent encounter (7) Malnutrition Status: Chronic Current Visit: Yes Code(s): E46 - Unspecified protein- calorie malnutrition Type of Wound Date of Service: 01/07/19 Chief Complaint: Leg ulcer right History of Wound: Mr. Choe is a 68 year old with past medical history of atrial fibrillation, peripheral arterial disease status post left lower extremity stenting and tobacco abuse presents for follow-up of right leg ulcer. He had a reported deep venous thrombosis of the right leg and developed subsequent compartment syndrome previously. He underwent surgical fasciotomy on July 07 at [facility] and has a resultant chronic wound. He had a recent surgical debridement and serial application of advanced wound care product with delayed closure and application of wound VAC on 08/15/2018 and 08/19/2018, respectively. He also had a tendon debridement with versa jet application of amnio fill and epi cord again and application of sarah wound VAC. He is kept this clean and intact. Essentially he has had a chronic ulcer with exposed necrotic muscle since the end of June 2018. He is working with [facility] to get his custom ankle-foot orthotics. He is scheduled to get fitted for this next week. He is weightbearing in a cam walker today. He is upset today that his ulcer site has not healed and has a lot of questions as to why this has happened to him. Progress of Wound: Improving - Physical Exam Vital Signs Temp Pulse Resp BP 97.7 F L 81 18 135/79 H 01/07/19 10:42 01/07/19 10:42 01/07/19 10:42 01/07/19 10:42 General: Alert, Oriented x3, Cooperative, No apparent distress Extremities: No cyanosis, No edema, Capillary Refill Less than 3 Seconds, No Calf Tenderness - Negative Yen and Watts signs. Compartments are soft., Diminished Peripheral Pulses Skin: Ulcer/ Wound - No purulence, erythema, streaking, odor, infection. The peripheral skin is hairless and atrophic. There is skin remodeling at the previous open ulcer site and significant progressive healing is noted. There is no exposed tendon. The peripheral skin is very hairless and atrophic. Wound Measurements and Assessment - Nurse 1 - General Ulcer Measurement Start: 12/10/18 10:15 Freq: Status: Active Protocol: Activity Type Activity Date Activity User E-Sign Co-Sign Detail Recorded Client Recorded Date Recorded By Document 01/07/19 10:42 [id number] 01/07/19 10:44 01/07/19 10:42 Wound Center Nurse 1 [Ulcer Assessment] #2 right lower leg -Combined with other wound No -Current Size (cm) - Length 3.5 -Current Size (cm) - Width 0.3 -Current Size (cm) - Depth 0.4 -Total Square Cm 1.05 -Photo Taken No -Epithelialization Small 1-33% -Tunneling No -Undermining/Tunneling No -Circular Undermining No -Exudate Amt Medium -Exudate Type Serosanguineous -Wound Margin Distinct, Outline Attached -Granulation Amt Medium (34-66%) -Granulation Quality Pale,[place] -Slough/Fibrin Yes -Necrosis Amt None Present (0 %) -Necrotic Tissue Type Adherent Slough -Texture (Denisa-wound Skin Appearance) Assessed, Excoriation -Moisture (Denisa-wound Skin Appearance No Abnormality, ) Assessed -Color (Denisa-wound Skin Appearance) No Abnormality, Assessed -Temperature (Denisa-wound Skin No Abnormality Appearance) (Pt Warm) -Tenderness on Palpation (Denisa-wound Yes Skin Appearance) -Ulcer Cleansing Rinsed/ Irrigated with Saline -Foul Odor after Cleansing No -Anesthetic Used 4% Lidocaine Solution [Edema Assessment] -Lower Limb Edema Present NA - Nurse 2 - General Ulcer CM Notes Start: 12/10/18 10:15 Freq: Status: Active Protocol: Activity Type Activity Date Activity User E-Sign Co-Sign Detail Recorded Client Recorded Date Recorded By Document 01/07/19 11:02 AN [id number] 01/07/19 11:09 AN 01/07/19 11:02 Wound Center Nurse 2 [Procedure/Treatment] #2 right lower leg -Time 11:02 -Correct Patient Yes -Correct Side, Site, Position Yes -Correct Procedure Yes -Procedure Performed Yes -Type of Procedure Debridement -Clinical Debridement Subcutaneous -Post Debridement Size (cm) - Length 3.6 -Post Debridement Size (cm) - Width 0.4 -Post Debridement Size (cm) - Depth 0.4 -Total Square Cm 1.44 -Wound/Ulcer Outcome Not Healed -Ulcer Cleansing Rinsed/ Irrigated with Saline -Foul Odor after Cleansing No -Bioengineered Tissue No -Bleeding Controlled with Pressure -Offloading Yes -Type of Offloading Camwalker -Treatment Response Procedure Tolerated Well [See Physician Procedure note for Specifics] Pain Scale: 0-10 Numeric [Pain] -Is Patient Pain Free? Yes Musculoskeletal: No Tenderness to Palpation of Joints or Extremities, Muscle Wasting, - - Compartments of right lower extremity are soft to palpate. There is lack of ankle dorsiflexion consistent with a contracted dropfoot Neurological: Sensory exam intact to light touch and pain Psych/Mental Status: Normal Affect, Appropriate Debridement Note Post-Debridement Measurements/Treatment WC - Nurse 2 - General Ulcer CM Notes Start: 12/10/18 10:15 Freq: Status: Active Protocol: Activity Type Activity Date Activity User E-Sign Co-Sign Detail Recorded Client Recorded Date Recorded By Document 12/10/18 10:37 [id number] 12/10/18 10:40 Document 12/17/18 11:07 [id number] 12/17/18 11:08 JF Document 12/24/18 10:36 AN [id number] 12/24/18 10:38 AN Document 12/31/18 11:17 AN [id number] 12/31/18 11:19 AN Document 01/07/19 11:02 AN [id number] 01/07/19 11:09 AN 12/10/18 12/17/18 12/24/18 10:37 11:07 10:36 Wound Center Nurse 2 #2 right lower leg -Time 10:39 11:08 10:38 -Correct Patient Yes Yes Yes -Correct Side, Site, Position Yes Yes Yes -Correct Procedure Yes Yes Yes -Procedure Performed Yes Yes Yes -Type of Procedure Debridement Debridement Debridement -Clinical Debridement Subcutaneous Subcutaneous Subcutaneous -Post Debridement Size (cm) - Length 6.3 6.9 6.3 -Post Debridement Size (cm) - Width 0.7 0.3 0.3 -Post Debridement Size (cm) - Depth 0.5 0.3 0.5 -Total Square Cm 4.41 2.07 1.89 -Wound/Ulcer Outcome Not Healed Not Healed Not Healed -Ulcer Cleansing Rinsed/ Rinsed/ Rinsed/ Irrigated with Irrigated with Irrigated with Saline Saline Saline -Foul Odor after Cleansing No No -Bioengineered Tissue No No -Bleeding Controlled with Pressure Pressure Pressure -Offloading Yes No Yes -Type of Offloading Camwalker -Treatment Response Procedure Procedure Procedure Tolerated Well Tolerated Well Tolerated Well Pain Scale: 0-10 Numeric Is Patient Pain Free? Yes Yes Yes 12/31/18 01/07/19 11:17 11:02 Wound Center Nurse 2 #2 right lower leg -Time 11:17 11:02 -Correct Patient Yes Yes -Correct Side, Site, Position Yes Yes -Correct Procedure Yes Yes -Procedure Performed Yes Yes -Type of Procedure Debridement Debridement -Clinical Debridement Subcutaneous Subcutaneous -Post Debridement Size (cm) - Length 4.7 3.6 -Post Debridement Size (cm) - Width 0.4 0.4 -Post Debridement Size (cm) - Depth 0.4 0.4 -Total Square Cm 1.88 1.44 -Wound/Ulcer Outcome Not Healed Not Healed -Ulcer Cleansing Rinsed/ Rinsed/ Irrigated with Irrigated with Saline Saline -Foul Odor after Cleansing No No -Bioengineered Tissue No No -Bleeding Controlled with Pressure Pressure -Offloading No Yes -Type of Offloading Camwalker -Treatment Response Procedure Procedure Tolerated Well Tolerated Well Pain Scale: 0-10 Numeric Is Patient Pain Free? Yes Yes Wound debrided: lateral leg Laterality: Right Type of Debridement: Excisional debridement Anesthesia Used: 5% Lidocaine Gel Depth: in the subcutaneous layer Percentage of wound debrided: 100 Instrument Used: #15 blade Tissue Removed: fibrous, devitalized subcutaneous, biofilm, slough Severity: Fat Layer Exposed Amount of bleeding with debridement: Mild Bleeding Controlled with: Pressure Patient tolerated procedure well Assessment/Plan Active Problems (Last Reviewed 09/19/18 @ 09:44 by Rosa Isela Pat) Foot drop, right (Chronic) Difficulty walking (Chronic) Pain in right lower leg (Chronic) Other specified peripheral vascular diseases (Chronic) Delayed wound healing (Chronic) Malnutrition (Chronic) 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 Peripheral vascular disease. Leg edema and rule out venous insufficiency. Malnutrition. Recent tobacco use. Walking difficulty. Pain in right limb lower. Contraction right lower extremity at ankle level. Right dropfoot Plan: Patient was carefully examined and evaluated today. The etiology of his case and surgical indications were discussed today. The anticipated healing time was also discussed. He understands his comorbidities are contributing to delayed healing. He was reassured there are no signs of infection noted today. He is also reassured he has been making good progress with his comprehensive care plan. The ulcer was debrided as noted in the clinical panel. I reviewed and discussed his case. No exposed tendon is noted. He is reassured no local signs of infection exist today. [place] and a sarah wound VAC were applied today; to keep intact this next week. To continue to eat and take meal supplements as tolerated. [place] prescription was previously provided and he was advised on proper use. To keep pressure off this ulcer by avoiding lying on his right lateral leg. To reduce unnecessary pressure by wearing a light Tubigrip compression garment. To continue CAM Walker weight-bear as tolerated with assistive device as needed. He was again encouraged to obtain his custom ankle- foot orthotic to address his dropfoot and contraction of his right lower extremity. To follow-up for fitting and dispersal in about 1 weeks. I answered all his questions. To return to the wound healing center in 1 week or call sooner if he has any questions or concerns.
== END 2019-01-07 23:59 ==
LOC: WC 10:30
PROVIDERS: Family Provider Internal Medicine; PCP Internal Medicine; Referring Provider Podiatrist; Visit Provider Podiatrist
DX: I73.9 Peripheral vascular disease, unspecified (principal); M21.371 Foot drop, right foot; I48.91 Unspecified atrial fibrillation; Z72.0 Tobacco use; Z86.718 Personal history of other venous thrombosis and embolism; L97.812 Non-pressure chronic ulcer of other part of right lower leg with fat layer exposed
CPT/HCPCS: 11042; 97607

== ENCOUNTER → 2019-01-07 11:47 | Outpatient (CLI) | payer MEDICARE, MEDICAID, SELFPAY ==
[2019-01-07 10:42] VITALS: BMI 22.4
[2019-01-15 20:07] LABS: Transferrin 335 mg/dL (200-370)
[2019-01-16 15:52] LABS: Anti-Thyroglobulin AB 163.6 IU/mL (0.0-0.9); Thyroglobulin RIA 16 ng/mL (.); Thyroid Peroxidase AB > 600 IU/mL (0-34)
== END ==
PROVIDERS: Family Provider Family Medicine; PCP Family Medicine; Referring Provider Family Medicine; Visit Provider Family Medicine
DX: I48.91 Unspecified atrial fibrillation (principal)
CPT/HCPCS: 36415; 84432; 84466; 86376; 86800

== ENCOUNTER 2019-02-04 10:00 | Outpatient (RCR) | payer MEDICARE, MEDICAID, SELFPAY ==
[2019-01-08 00:42] VITALS: BP 135/79; PULSE 81; RESP 18; TEMP 36.5
[2019-01-14 10:00] VITALS: BP 148/86; PULSE 72; RESP 16; TEMP 36.2; BMI 22.4
--- NOTE | 2019-01-14 13:09 | PN.PCM_ITS ---
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 Status: Chronic Current Visit: Yes Code(s): L97.913 - Non-pressure chronic ulcer of unspecified part of right lower leg with necrosis of muscle (2) Foot drop, right Status: Chronic Current Visit: Yes Code(s): M21.371 - Foot drop, right foot (3) Difficulty walking Status: Chronic Current Visit: Yes Code(s): R26.2 - Difficulty in walking, not elsewhere classified (4) Pain in right lower leg Status: Chronic Current Visit: Yes Code(s): M79.661 - Pain in right lower leg (5) Other specified peripheral vascular diseases Status: Chronic Current Visit: Yes Code(s): I73.89 - Other specified peripheral vascular diseases (6) Delayed wound healing Status: Chronic Current Visit: Yes Code(s): T14.8XXD - Other injury of unspecified body region, subsequent encounter (7) Tobacco abuse Status: Chronic Current Visit: Yes Code(s): Z72.0 - Tobacco use Type of Wound Date of Service: 01/14/19 Chief Complaint: Leg ulcer right History of Wound: Mr. Choe is a 68 year old with past medical history of atrial fibrillation, peripheral arterial disease status post left lower extremity stenting and tobacco abuse presents for follow-up of right leg ulcer. He had a reported deep venous thrombosis of the right leg and developed subsequent compartment syndrome previously. He underwent surgical fasciotomy on July 07 at [facility] and has a resultant chronic wound. He had a recent surgical debridement and serial application of advanced wound care product with delayed closure and application of wound VAC on 08/15/2018 and 08/19/2018, respectively. He also had a tendon debridement with versa jet application of amnio fill and epi cord again and application of sarah wound VAC. He is kept this clean and intact. Essentially he has had a chronic ulcer with exposed necrotic muscle since the end of June 2018. He is working with [employer] to get his custom ankle-foot orthotics. He obtained his knee brace yesterday and has started with the break-in process. He is happy with his brace is designed so far. Progress of Wound: Improving - Physical Exam Vital Signs Temp Pulse Resp BP 97.1 F L 72 16 148/86 H 01/14/19 10:00 01/14/19 10:00 01/14/19 10:00 01/14/19 10:00 General: Alert, Oriented x3, Cooperative, No apparent distress Extremities: No cyanosis, Capillary Refill Less than 3 Seconds, No Calf Tenderness - Negative Yen and Watts sign, Diminished Peripheral Pulses, Edema - Mild Skin: Ulcer/ Wound - No purulence, erythema, streaking, odor, infection., - - The peripheral skin is hairless atrophic. His skin was evaluated and his subjective itchiness location there is no skin discontinuity or signs of new infection or inflammation noted distal to the ulcer site. There is also no visualized skin peeling or blister formation Wound Measurements and Assessment - Nurse 1 - General Ulcer Measurement Start: 01/14/19 10:00 Freq: Status: Active Protocol: Activity Type Activity Date Activity User E-Sign Co-Sign Detail Recorded Client Recorded Date Recorded By Document 01/14/19 10:00 BLANKA [id number] 01/14/19 10:06 BLANKA 01/14/19 10:00 Wound Center Nurse 1 [Ulcer Assessment] #2 right lower leg -Current Size (cm) - Length 2.5 -Current Size (cm) - Width 0.2 -Current Size (cm) - Depth 0.4 -Total Square Cm 0.50 -Photo Taken Yes -Exudate Amt Small -Exudate Type Serosanguineous -Wound Margin Thickened & Rolled Under -Granulation Amt Medium (34-66%) -Granulation Quality [place] -Necrosis Amt Medium (34-66%) -Necrotic Tissue Type Adherent Slough -Structure Exposed N/A -Texture (Denisa-wound Skin Appearance) Scarring -Moisture (Denisa-wound Skin Appearance No Abnormality ) -Color (Denisa-wound Skin Appearance) No Abnormality -Temperature (Denisa-wound Skin No Abnormality Appearance) (Pt Warm) -Tenderness on Palpation (Denisa-wound No Skin Appearance) -Ulcer Cleansing Wound Cleanser -Foul Odor after Cleansing No -Anesthetic Used 4% Lidocaine Solution [Edema Assessment] -Right Calf (cm) 31.8 -Right Ankle (cm) 20 - Nurse 2 - General Ulcer CM Notes Start: 01/14/19 10:00 Freq: Status: Active Protocol: Activity Type Activity Date Activity User E-Sign Co-Sign Detail Recorded Client Recorded Date Recorded By Document 01/14/19 10:24 COURTNEY [id number] 01/14/19 10:29 AN 01/14/19 10:24 Wound Center Nurse 2 [Procedure/Treatment] #2 right lower leg -Time 10:28 -Correct Patient Yes -Correct Side, Site, Position Yes -Correct Procedure Yes -Procedure Performed Yes -Type of Procedure Debridement -Clinical Debridement Subcutaneous -Post Debridement Size (cm) - Length 2.6 -Post Debridement Size (cm) - Width 0.3 -Post Debridement Size (cm) - Depth 0.4 -Total Square Cm 0.78 -Wound/Ulcer Outcome Not Healed -Ulcer Cleansing Rinsed/ Irrigated with Saline -Foul Odor after Cleansing No -Bleeding Controlled with Pressure -Offloading Yes -Treatment Response Procedure Tolerated Well [See Physician Procedure note for Specifics] Pain Scale: 0-10 Numeric [Pain] -Is Patient Pain Free? Yes Musculoskeletal: No Tenderness to Palpation of Joints or Extremities, Muscle Wasting, - - Compartment soft. No bogginess or fluctuance on palpation. Neurological: Sensory exam intact to light touch and pain Psych/Mental Status: Normal Affect, Appropriate Debridement Note Post-Debridement Measurements/Treatment WC - Nurse 2 - General Ulcer CM Notes Start: 01/14/19 10:00 Freq: Status: Active Protocol: Activity Type Activity Date Activity User E-Sign Co-Sign Detail Recorded Client Recorded Date Recorded By Document 01/14/19 10:24 AN [id number] 01/14/19 10:29 AN 01/14/19 10:24 Wound Center Nurse 2 #2 right lower leg -Time 10:28 -Correct Patient Yes -Correct Side, Site, Position Yes -Correct Procedure Yes -Procedure Performed Yes -Type of Procedure Debridement -Clinical Debridement Subcutaneous -Post Debridement Size (cm) - Length 2.6 -Post Debridement Size (cm) - Width 0.3 -Post Debridement Size (cm) - Depth 0.4 -Total Square Cm 0.78 -Wound/Ulcer Outcome Not Healed -Ulcer Cleansing Rinsed/ Irrigated with Saline -Foul Odor after Cleansing No -Bleeding Controlled with Pressure -Offloading Yes -Treatment Response Procedure Tolerated Well Pain Scale: 0-10 Numeric Is Patient Pain Free? Yes Wound debrided: lateral leg Laterality: Right Type of Debridement: Excisional debridement Anesthesia Used: 5% Lidocaine Gel Depth: in the subcutaneous layer Percentage of wound debrided: 100 Instrument Used: #15 blade Tissue Removed: fibrous, devitalized subcutaneous, biofilm, slough Severity: Fat Layer Exposed Amount of bleeding with debridement: Mild Bleeding Controlled with: Pressure Patient tolerated procedure well Assessment/Plan Active Problems (Last Reviewed 09/19/18 @ 09:44 by Rosa Isela Pat) Foot drop, right (Chronic) Difficulty walking (Chronic) Pain in right lower leg (Chronic) Other specified peripheral vascular diseases (Chronic) Delayed wound healing (Chronic) 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 Peripheral vascular disease. Leg edema and rule out venous insufficiency. Malnutrition. Recent tobacco use. Walking difficulty. Pain in right limb lower. Contraction right lower extremity at ankle level. Right dropfoot Plan: Patient was carefully examined and evaluated today. The etiology of his case and surgical indications were discussed today. The anticipated healing time was also discussed. He understands his comorbidities are contributing to delayed healing. He was reassured there are no signs of infection noted today. He is also reassured he has been making good progress with his comprehensive care plan. The ulcer was debrided as noted in the clinical panel. I reviewed and discussed his case. No exposed tendon is noted. He is reassured no local signs of infection exist today. Park and a sarah wound VAC were applied today; to keep intact this next week. To continue to eat and take meal supplements as tolerated. [place] prescription was previously provided and he was advised on proper use. To keep pressure off this ulcer by avoiding lying on his right lateral leg. To reduce unnecessary pressure by wearing a light Tubigrip compression garment. To continue CAM Walker weight-bear as tolerated with assistive device as needed. To continue ankle-foot orthotic use for dropfoot. He is started the break-in process recently. I answered all his questions. To return to the wound healing center in 1 - 2 weeks or call sooner if he has any questions or concerns.
[2019-01-28 10:18] VITALS: BP 158/81; PULSE 73; RESP 18; TEMP 36.2; BMI 22.4
--- NOTE | 2019-01-28 13:08 | PCM.WC.PN ---
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 Status: Chronic Current Visit: Yes Code(s): L97.913 - Non-pressure chronic ulcer of unspecified part of right lower leg with necrosis of muscle (2) Foot drop, right Status: Chronic Current Visit: Yes Code(s): M21.371 - Foot drop, right foot (3) Difficulty walking Status: Chronic Current Visit: Yes Code(s): R26.2 - Difficulty in walking, not elsewhere classified (4) Pain in right lower leg Status: Chronic Current Visit: Yes Code(s): M79.661 - Pain in right lower leg (5) Other specified peripheral vascular diseases Status: Chronic Current Visit: Yes Code(s): I73.89 - Other specified peripheral vascular diseases (6) Delayed wound healing Status: Chronic Current Visit: Yes Code(s): T14.8XXD - Other injury of unspecified body region, subsequent encounter (7) Tobacco abuse Status: Chronic Current Visit: Yes Code(s): Z72.0 - Tobacco use Type of Wound Date of Service: 01/28/19 Chief Complaint: Leg ulcer right History of Wound: Mr. Choe is a 68 year old with past medical history of atrial fibrillation, peripheral arterial disease status post left lower extremity stenting and tobacco abuse presents for follow-up of right leg ulcer. He had a reported deep venous thrombosis of the right leg and developed subsequent compartment syndrome previously. He underwent surgical fasciotomy on July 07 at [facility] and has a resultant chronic wound. He had a recent surgical debridement and serial application of advanced wound care product with delayed closure and application of wound VAC on 08/15/2018 and 08/19/2018, respectively. He also had a tendon debridement with versa jet application of amnio fill and epi cord again and application of sarah wound VAC. He is kept this clean and intact. Essentially he has had a chronic ulcer with exposed necrotic muscle since the end of June 2018. He continues to use his new brace and is walking with improvement. He is tolerating this well. Progress of Wound: Improving - Physical Exam Vital Signs Temp Pulse Resp BP 97.1 F L 73 18 158/81 H 01/28/19 10:18 01/28/19 10:18 01/28/19 10:18 01/28/19 10:18 General: Alert, Oriented x3, Cooperative, No apparent distress Extremities: No cyanosis, Capillary Refill Less than 3 Seconds, No Calf Tenderness, Diminished Peripheral Pulses, Edema, - - Dropfoot and weakness noted to the right lower extremity is noted to the right lower extremity with ambulation which appears stable. Skin: Ulcer/ Wound - No purulence, erythema, streaking, odor, infection. The peripheral skin is hairless and atrophic. Wound Measurements and Assessment WC - Nurse 1 - General Ulcer Measurement Start: 01/14/19 10:00 Freq: Status: Active Protocol: Activity Type Activity Date Activity User E-Sign Co-Sign Detail Recorded Client Recorded Date Recorded By Document 01/28/19 10:18 RB [email or web address] 01/28/19 10:20 RB 01/28/19 10:18 Wound Center Nurse 1 [Ulcer Assessment] #2 right lower leg -Combined with other wound No -Current Size (cm) - Length 2.8 -Current Size (cm) - Width 0.3 -Current Size (cm) - Depth 0.4 -Total Square Cm 0.84 -Tunneling No -Undermining/Tunneling No -Circular Undermining No -Change in Wound Grade/Stage No Query Text:If change please identify the Stage/Grade in the comment (ie. S2 G3) -Exudate Amt Small -Exudate Type Serosanguineous -Wound Margin Thickened & Rolled Under -Granulation Amt Large (67-100%) -Granulation Quality [place] -Slough/Fibrin Yes -Necrosis Amt Small (1-33%) -Necrotic Tissue Type Adherent Slough -Structure Exposed N/A -Texture (Denisa-wound Skin Appearance) Assessed, Scarring -Moisture (Denisa-wound Skin Appearance Assessed ) -Color (Denisa-wound Skin Appearance) Assessed -Temperature (Denisa-wound Skin No Abnormality Appearance) (Pt Warm) -Tenderness on Palpation (Denisa-wound No Skin Appearance) -Ulcer Cleansing Wound Cleanser -Foul Odor after Cleansing No -Anesthetic Used 4% Lidocaine Solution WC - Nurse 2 - General Ulcer CM Notes Start: 01/14/19 10:00 Freq: Status: Active Protocol: Activity Type Activity Date Activity User E-Sign Co-Sign Detail Recorded Client Recorded Date Recorded By Document 01/28/19 10:29 AN [id number] 01/28/19 10:31 AN 01/28/19 10:29 Wound Center Nurse 2 [Procedure/Treatment] -Time 10:30 -Correct Patient Yes -Correct Side, Site, Position Yes -Correct Procedure Yes -Procedure Performed Yes -Type of Procedure Debridement -Clinical Debridement Subcutaneous -Post Debridement Size (cm) - Length 2.9 -Post Debridement Size (cm) - Width 0.3 -Post Debridement Size (cm) - Depth 0.5 -Total Square Cm 0.87 -Wound/Ulcer Outcome Not Healed -Ulcer Cleansing Rinsed/ Irrigated with Saline -Foul Odor after Cleansing No -Bioengineered Tissue No -Bleeding Controlled with Pressure -Offloading Yes -Type of Offloading Camwalker -Treatment Response Procedure Tolerated Well [See Physician Procedure note for Specifics] Pain Scale: 0-10 Numeric [Pain] -Is Patient Pain Free? Yes Musculoskeletal: No Tenderness to Palpation of Joints or Extremities, Muscle Wasting Neurological: Sensory exam intact to light touch and pain Psych/Mental Status: Normal Affect, Appropriate Debridement Note Post-Debridement Measurements/Treatment WC - Nurse 2 - General Ulcer CM Notes Start: 01/14/19 10:00 Freq: Status: Active Protocol: Activity Type Activity Date Activity User E-Sign Co-Sign Detail Recorded Client Recorded Date Recorded By Document 01/14/19 10:24 AN [id number] 01/14/19 10:29 AN Document 01/28/19 10:29 AN [id number] 01/28/19 10:31 AN 01/14/19 01/28/19 10:24 10:29 Wound Center Nurse 2 #2 right lower leg -Time 10:28 10:30 -Correct Patient Yes Yes -Correct Side, Site, Position Yes Yes -Correct Procedure Yes Yes -Procedure Performed Yes Yes -Type of Procedure Debridement Debridement -Clinical Debridement Subcutaneous Subcutaneous -Post Debridement Size (cm) - Length 2.6 2.9 -Post Debridement Size (cm) - Width 0.3 0.3 -Post Debridement Size (cm) - Depth 0.4 0.5 -Total Square Cm 0.78 0.87 -Wound/Ulcer Outcome Not Healed Not Healed -Ulcer Cleansing Rinsed/ Rinsed/ Irrigated with Irrigated with Saline Saline -Foul Odor after Cleansing No No -Bioengineered Tissue No -Bleeding Controlled with Pressure Pressure -Offloading Yes Yes -Type of Offloading Camwalker -Treatment Response Procedure Procedure Tolerated Well Tolerated Well Pain Scale: 0-10 Numeric Is Patient Pain Free? Yes Yes Wound debrided: lateral leg Laterality: Right Type of Debridement: Excisional debridement Anesthesia Used: 5% Lidocaine Gel Depth: in the subcutaneous layer Percentage of wound debrided: 100 Instrument Used: #15 blade Tissue Removed: fibrous, devitalized subcutaneous, biofilm, slough Severity: Fat Layer Exposed Amount of bleeding with debridement: Mild Bleeding Controlled with: Pressure Patient tolerated procedure well Assessment/Plan Active Problems (Last Reviewed 01/29/19 @ 16:53 by Faraz Connolly MD) Foot drop, right (Chronic) Difficulty walking (Chronic) Pain in right lower leg (Chronic) Other specified peripheral vascular diseases (Chronic) Delayed wound healing (Chronic) 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 Peripheral vascular disease. Leg edema and rule out venous insufficiency. Malnutrition. Recent tobacco use. Walking difficulty. Pain in right limb lower. Contraction right lower extremity at ankle level. Right dropfoot Plan: Patient was carefully examined and evaluated today. The etiology of his case and surgical indications were discussed today. The anticipated healing time was also discussed. He understands his comorbidities are contributing to delayed healing. He was reassured there are no signs of infection noted today. He is also reassured he has been making good progress with his comprehensive care plan. The ulcer was debrided as noted in the clinical panel. I reviewed and discussed his case. No exposed tendon is noted. He is reassured no local signs of infection exist today. Park was applied today; to change daily. The wound VAC has been discontinued due to improvement. I would like to apply additional medical healing product however his insurance did not approve this for the clinical setting. To continue to eat and take meal supplements as tolerated. [place] prescription was previously provided and he was advised on proper use. To keep pressure off this ulcer by avoiding lying on his right lateral leg. To reduce unnecessary pressure by wearing a light Tubigrip compression garment. To continue ankle-foot orthotic use for dropfoot. I answered all his questions. To return to the wound healing center in 1 week or call sooner if he has any questions or concerns.
[2019-02-04 10:23] VITALS: BP 153/91; PULSE 70; RESP 18; TEMP 36.9; BMI 22.4
--- NOTE | 2019-02-04 11:17 | PCM.WC.PN ---
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 Status: Chronic Current Visit: Yes Code(s): L97.913 - Non-pressure chronic ulcer of unspecified part of right lower leg with necrosis of muscle (2) Foot drop, right Status: Chronic Current Visit: Yes Code(s): M21.371 - Foot drop, right foot (3) Difficulty walking Status: Chronic Current Visit: Yes Code(s): R26.2 - Difficulty in walking, not elsewhere classified (4) Pain in right lower leg Status: Chronic Current Visit: Yes Code(s): M79.661 - Pain in right lower leg (5) Other specified peripheral vascular diseases Status: Chronic Current Visit: Yes Code(s): I73.89 - Other specified peripheral vascular diseases (6) Delayed wound healing Status: Chronic Current Visit: Yes Code(s): T14.8XXD - Other injury of unspecified body region, subsequent encounter (7) Tobacco abuse Status: Chronic Current Visit: Yes Code(s): Z72.0 - Tobacco use Type of Wound Date of Service: 02/04/19 Chief Complaint: Leg ulcer right History of Wound: Mr. Choe is a 68 year old with past medical history of atrial fibrillation, peripheral arterial disease status post left lower extremity stenting and tobacco abuse presents for follow-up of right leg ulcer. He had a reported deep venous thrombosis of the right leg and developed subsequent compartment syndrome previously. He underwent surgical fasciotomy on July 07 at [facility] and has a resultant chronic wound. He had a recent surgical debridement and serial application of advanced wound care product with delayed closure and application of wound VAC on 08/15/2018 and 08/19/2018, respectively. He also had a tendon debridement with versa jet application of amnio fill and epi cord again and application of sarah wound VAC. He is kept this clean and intact. Essentially he has had a chronic ulcer with exposed necrotic muscle since the end of June 2018. He continues to use his ankle-foot orthotic as recommended. Progress of Wound: Improving - Physical Exam Vital Signs Temp Pulse Resp BP 98.4 F 70 18 153/91 H 02/04/19 10:23 02/04/19 10:23 02/04/19 10:23 02/04/19 10:23 General: Alert, Oriented x3, Cooperative, No apparent distress Extremities: No cyanosis, Capillary Refill Less than 3 Seconds, No Calf Tenderness, Diminished Peripheral Pulses, - - Compartment soft to palpate right lower extremity Skin: Ulcer/ Wound - No purulence, erythema, streaking, odor, infection. The peripheral skin is hairless and atrophic Wound Measurements and Assessment WC - Nurse 1 - General Ulcer Measurement Start: 01/14/19 10:00 Freq: Status: Active Protocol: Activity Type Activity Date Activity User E-Sign Co-Sign Detail Recorded Client Recorded Date Recorded By Document 02/04/19 10:23 AN [id number] 02/04/19 10:28 AN 02/04/19 10:23 Wound Center Nurse 1 [Ulcer Assessment] #2 right lower leg -Current Size (cm) - Length 2.4 -Current Size (cm) - Width 0.3 -Current Size (cm) - Depth 0.4 -Total Square Cm 0.72 -Photo Taken No -Exudate Amt Small -Exudate Type Serosanguineous -Wound Margin Thickened -Granulation Amt Large (67-100%) -Granulation Quality Edgar -Necrosis Amt Small (1-33%) -Necrotic Tissue Type Adherent Slough -Structure Exposed N/A -Texture (Denisa-wound Skin Appearance) Scarring -Moisture (Denisa-wound Skin Appearance No Abnormality ) -Color (Denisa-wound Skin Appearance) No Abnormality -Temperature (Denisa-wound Skin No Abnormality Appearance) (Pt Warm) -Tenderness on Palpation (Denisa-wound No Skin Appearance) -Ulcer Cleansing Wound Cleanser -Foul Odor after Cleansing No -Anesthetic Used 5% Lidocaine Gel WC - Nurse 2 - General Ulcer CM Notes Start: 01/14/19 10:00 Freq: Status: Active Protocol: Activity Type Activity Date Activity User E-Sign Co-Sign Detail Recorded Client Recorded Date Recorded By Document 02/04/19 10:50 AN [id number] 02/04/19 10:54 AN 02/04/19 10:50 Wound Center Nurse 2 [Procedure/Treatment] -Time 10:52 -Correct Patient Yes -Correct Side, Site, Position Yes -Correct Procedure Yes -Procedure Performed Yes -Type of Procedure Debridement -Clinical Debridement Subcutaneous -Post Debridement Size (cm) - Length 2.5 -Post Debridement Size (cm) - Width 0.4 -Post Debridement Size (cm) - Depth 0.4 -Total Square Cm 1.00 -Wound/Ulcer Outcome Not Healed -Ulcer Cleansing Rinsed/ Irrigated with Saline -Foul Odor after Cleansing No -Bioengineered Tissue No -Bleeding Controlled with Pressure -Offloading Yes -Type of Offloading Camwalker -Treatment Response Procedure Tolerated Well [See Physician Procedure note for Specifics] Pain Scale: 0-10 Numeric [Pain] -Is Patient Pain Free? Yes Musculoskeletal: No Tenderness to Palpation of Joints or Extremities, Muscle Wasting Neurological: Sensory exam intact to light touch and pain Psych/Mental Status: Normal Affect, Appropriate Debridement Note Post-Debridement Measurements/Treatment WC - Nurse 2 - General Ulcer CM Notes Start: 01/14/19 10:00 Freq: Status: Active Protocol: Activity Type Activity Date Activity User E-Sign Co-Sign Detail Recorded Client Recorded Date Recorded By Document 01/14/19 10:24 AN [id number] 01/14/19 10:29 AN Document 01/28/19 10:29 AN [id number] 01/28/19 10:31 AN Document 02/04/19 10:50 AN [id number] 02/04/19 10:54 AN 01/14/19 01/28/19 02/04/19 10:24 10:29 10:50 Wound Center Nurse 2 #2 right lower leg -Time 10:28 10:30 10:52 -Correct Patient Yes Yes Yes -Correct Side, Site, Position Yes Yes Yes -Correct Procedure Yes Yes Yes -Procedure Performed Yes Yes Yes -Type of Procedure Debridement Debridement Debridement -Clinical Debridement Subcutaneous Subcutaneous Subcutaneous -Post Debridement Size (cm) - Length 2.6 2.9 2.5 -Post Debridement Size (cm) - Width 0.3 0.3 0.4 -Post Debridement Size (cm) - Depth 0.4 0.5 0.4 -Total Square Cm 0.78 0.87 1.00 -Wound/Ulcer Outcome Not Healed Not Healed Not Healed -Ulcer Cleansing Rinsed/ Rinsed/ Rinsed/ Irrigated with Irrigated with Irrigated with Saline Saline Saline -Foul Odor after Cleansing No No No -Bioengineered Tissue No No -Bleeding Controlled with Pressure Pressure Pressure -Offloading Yes Yes Yes -Type of Offloading Camwalker Camwalker -Treatment Response Procedure Procedure Procedure Tolerated Well Tolerated Well Tolerated Well Pain Scale: 0-10 Numeric Is Patient Pain Free? Yes Yes Yes Wound debrided: lateral leg Laterality: Right Type of Debridement: Excisional debridement Anesthesia Used: 5% Lidocaine Gel Depth: in the subcutaneous layer Percentage of wound debrided: 100 Instrument Used: 3mm curette Tissue Removed: fibrous, devitalized subcutaneous tissue, biofilm, slough Severity: Fat Layer Exposed Amount of bleeding with debridement: Mild Bleeding Controlled with: Pressure Patient tolerated procedure well Assessment/Plan Active Problems (Last Reviewed 01/29/19 @ 16:53 by Faraz Connolly MD) Foot drop, right (Chronic) Difficulty walking (Chronic) Pain in right lower leg (Chronic) Other specified peripheral vascular diseases (Chronic) Delayed wound healing (Chronic) 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 Peripheral vascular disease. Leg edema and rule out venous insufficiency. Malnutrition. Recent tobacco use. Walking difficulty. Pain in right limb lower. Contraction right lower extremity at ankle level. Right dropfoot Plan: Patient was carefully examined and evaluated today. The etiology of his case and surgical indications were discussed today. The anticipated healing time was also discussed. He understands his comorbidities are contributing to delayed healing. He was reassured there are no signs of infection noted today. He is also reassured he has been making good progress with his comprehensive care plan. The ulcer was debrided as noted in the clinical panel. I reviewed and discussed his case. No exposed tendon is noted. He is reassured no local signs of infection exist today. Park was applied today; to change daily. I would like to apply additional medical healing product however his insurance did not approve this for the clinical setting. We discussed additional treatment options including going back to the operating room for surgical excision with application of amnio fill versus excision of the remaining ulcer site with delayed primary closure. He is not ready to move forward with either option and would like to think about it again. To continue to eat and take meal supplements as tolerated. [place] prescription was previously provided and he was advised on proper use. To keep pressure off this ulcer by avoiding lying on his right lateral leg. To reduce unnecessary pressure by wearing a light Tubigrip compression garment. To continue ankle-foot orthotic use for dropfoot. It is also noted he continues to smoke which significantly impairs wound healing. He understands his responsibility to try to cut down to optimize his healing. He was offered smoking cessation. He also relates he is not able to follow-up next week usual colonoscopy. I recommended he follows up with a covering wound care center provider on an alternative day and he wants to think about this. In the meantime he is tentatively scheduled to return in 2 weeks. I answered all his questions.
== END 2019-02-07 23:59 ==
LOC: WC 10:00
PROVIDERS: Family Provider Family Medicine; PCP Family Medicine; Referring Provider Podiatrist; Visit Provider Podiatrist
DX: I73.9 Peripheral vascular disease, unspecified (principal); L97.812 Non-pressure chronic ulcer of other part of right lower leg with fat layer exposed; M79.661 Pain in right lower leg; M21.371 Foot drop, right foot; Z87.891 Personal history of nicotine dependence; R26.2 Difficulty in walking, not elsewhere classified; Z86.718 Personal history of other venous thrombosis and embolism; R60.0 Localized edema; I48.91 Unspecified atrial fibrillation
CPT/HCPCS: 11042

== ENCOUNTER → 2019-02-05 12:03 | Outpatient (CLI) | payer MEDICARE, MEDICAID, SELFPAY ==
[2019-02-05 12:03] VITALS: BMI 25.0
[2019-02-05 14:12] LABS: Absolute Lymphocyte Count 2.56 X10^3/uL (0.83-4.51); Absolute Neutrophil Count 2.8 X10^3/uL (2.0-7.7); Basophil# 0.06 X10^3/uL; Eosinophil# 0.19 X10^3/uL; Eosinophils% 3.1 % (0-5); Hematocrit 42.9 % (40-54); Lymphocyte # 2.56 X10^3/ul (4.0); Lymphocyte % 41.4 % (19-41); Mean Corp Hgb Conc 30.3 g/dL (32-36); Mean Corpuscular Hgb 24.9 pg (27.0-32.0); Mean Platelet Vol. 9.9 fl (6.2-12.0); Monocyte# 0.59 X10^3/uL; Monocyte% 9.5 % (0-10); NRBC Flagged by Analyzer 0 % (0-5); Neutrophil # 2.77 X10^3/uL (2.7-7.7); Neutrophil % 44.8 % (47-70); POSITIVE MORPHOLOGY YES; Platelet Count 268 K/mm3 (150-450); RBC Distribution Width CV 22.4 % (11.6-14.6); RBC Distribution Width SD 64.4 fl (35.1-43.9); Red Blood Count 5.23 M/mm3 (4.6-6.2); White Blood Count 6.2 K/mm3 (4.4-11.0)
[2019-02-05 14:35] LABS: Ferritin 25 ng/mL (26-388); Iron 343 ug/dL (65-175)
[2019-02-05 14:43] LABS: Differential Indicated SCAN CRITERIA MET
[2019-02-05 14:46] LABS: Anisocytosis 1+
== END ==
PROVIDERS: Family Provider Family Medicine; PCP Family Medicine; Referring Provider Family Medicine; Visit Provider Family Medicine
DX: D50.9 Iron deficiency anemia, unspecified (principal)
CPT/HCPCS: 36415; 82728; 83540; 85025

== ENCOUNTER 2019-02-11 05:52 | Day surgery (SDC) | payer MEDICARE, MEDICAID, SELFPAY ==
[2019-01-23 10:07] VITALS: BMI 22.4
--- NOTE | 2019-01-29 04:54 | HP_ITS ---
Intake Vital Signs 01/23/19 Body Mass Index (BMI) 22.4 01/23/19 Height 6 ft 01/23/19 Weight: 175 lb 01/23/19 Body Mass Index (BMI) 23.7 01/23/19 Blood Pressure 138/78 H 01/23/19 Blood Pressure Location Rt brachial 01/23/19 Blood Pressure Position Sitting 01/23/19 Respiratory Rate 16 01/23/19 Pulse Rate 64 01/23/19 Pulse Source Monitor 01/23/19 Temperature 97.9 F 01/23/19 Temperature Source Oral 01/23/19 Pulse Ox 99 01/23/19 Oxygen Delivery Method room air Intake Visit Reasons: Iron Deficiency Anemia - C-Scope Consult Chief Complaint: RIGHT LEG WOUND Field Placement Director Required: No Is patient in pain?: No Allergies No Known Allergies Allergy (Verified 01/29/19 11:32) Medications Clopidogrel Bisulfate [Plavix] 75 mg PO DAILY 05/30/17 [History Confirmed 01/29/19] ferrous sulfate 325 mg (65 mg iron) tablet 325 mg PO DAILY 01/23/19 [History Confirmed 01/29/19] diltiazem 120 mg tablet 120 mg PO DAILY #90 tab 01/29/19 [Rx Confirmed 01/29/19] FOR[facility]LY [facility] Medical History Infection (Resolved) Other acquired deformities of right foot (Chronic) Foot drop, right (Chronic) Difficulty walking (Chronic) Pain in right lower leg (Chronic) Abscess of right leg (Resolved) Other specified peripheral vascular diseases (Chronic) Delayed wound healing (Chronic) Postoperative atrial fibrillation (Chronic 07/04/18) Venous insufficiency (Chronic) Malnutrition (Chronic) 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) Tobacco abuse (Chronic) Infection (Acute) 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) Bicuspid aortic valve (Suspected) Bilateral claudication of lower limb (Chronic) Wound of right lower extremity (Chronic) Paroxysmal atrial fibrillation (Chronic) Peripheral arterial occlusive disease (Chronic) COPD (chronic obstructive pulmonary disease) (Chronic) GERD (gastroesophageal reflux disease) (Chronic) Insomnia (Chronic) Compartment syndrome (Resolved) Nicotine abuse (Resolved) Stenosis of artery of left lower extremity (Resolved) Surgical History History of amputation of right foot (Resolved) History of angioplasty of peripheral vessel (Resolved 07/04/18) History of left heart catheterization (Resolved) History of vascular surgery (Resolved) Family History Mother Arthritis Diabetes Breast cancer Brother Hypertension Father CVA (cerebral vascular accident) Social History (Updated 01/29/19 @ 16:54 by Faraz Connolly MD) Smoking Status: Former smoker how long ago did patient quit smokin alcohol intake: never substance use type: former substance user, marijuana caffeine: Yes Type: coffee Number of servings: 7 what type of physical activity do you participate in: none HPI HPI HPI: CAITLIN MOLINA, is a 68 M who presents to the office today for HPI HPI Surgical H&P: Yes HPI: CAITLIN MOLINA, is a 68 M who presents to the office today for Evaluation of both heartburn and anemia. Patient had a recent hemoglobin completed [facility] on 01/06/2019 and was noted to have a hemoglobin of 11.4. Patient also notes that he has been having increasing heartburn over the last 2 years.Patient has never had a colonoscopy. He is noted to have atrial fibrillation and was started on Xarelto but the medication was stopped after an episode of rectal bleeding. He currently takes Plavix he does not take aspirin at the present time. ROS General General: Yes weight change and fatigue; no appetite, colon cancer, breast cancer or weakness HEENT HEENT: No difficulty swallowing, eye injury, eye surgery, swollen glands or hoarseness Endo Endocrine: No thyroid disease, diabetes mellitus, thyroid cancer, Hair loss, heat intolerance or cold intolerance Skin Skin: No rash or changing moles Musc Musculoskeletal: No back problems, arthritis, rheumatoid arthritis, gout or joint pain Cardio Cardiovascular: Yes atrial fibrillation; no murmur, pacemaker, heart disease, high blood pressure, heart attack, heart stent, palpitations, shortness of breat with exertion or chest pain Psych Psychiatric: No depression, anxiety or hearing voices Resp Respiratory: Yes shortness of breath, No sleep apnea, No cough, No COPD, No asthma, No emphysema, No wheezing Gastro Gastrointestinal: No abdominal pain, No nausea or vomiting, No diarrhea, No constipation, No blood in stool, Yes acid reflux, No hemorrhoids, No ulcers, No gallbladder problem, No black,tarry stools Ian Hematologic: Yes blood thinners, No blood disorders, No bleeding, Yes anemia, No blood clots Neuro Neurologic: No system reviewed and no additional complaints, except as docu, No as per HPI, No abnormal walking, No abnormal hearing, No abnormal movements, No abnormal speech, No behavioral changes, No burning sensations, No confusion, No seizure-like activity, No unsteadiness, No dizziness, No localized weakness, No frequent falls, No headache(s), No lack of coordination, No loss of vision, No memory loss, No numbness, No other visual disturbances, No radiating pain, No restless legs, No sensory deficit, No fainting, No tingling, No tremor(s), No weakness, No other Exam Const General: no acute distress, well developed, well hydrated Orientation: oriented to person, oriented to place, oriented to time [facility] Head: normocephalic, atraumatic Ears: external ears normal Mouth: moist mucous membranes Eyes Sclera: sclerae normal Pupils: normal by confrontation Neck Neck: no lymphadenopathy noted Neck mass: No Thyroid: thyroid normal, symmetrical Chest Chest palpation & inspection: normal inspection of the chest Resp Effort & Inspection: normal respiratory effort Auscultation: clear to auscultation bilaterally Percussion: percussion normal Cardio Rate: regular rate Rhythm: regular rhythm Heart Sounds: no murmurs GI Palpation: soft, no hepatosplenomegaly, no masses, nontender Rectal Exam: other Other: Rectal exam deferred. Extrem General: normal to inspection, no clubbing, cyanosis or edema Assessment & Plan Problems 1. Iron deficiency anemia due to chronic blood loss D50.0 2. Heartburn R12 Plan I have discussed the above with the patient. I have offered the patient colonoscopy As well as an EGD for evaluation. I have explained the risks/benefits of the procedure and described the procedure. I have discussed the risks with the patient, including but not limited to: infection, bleeding, perforation of the GI tract requiring emergency surgery, inability to complete the procedure, injury to any internal organs, complications of anesthesia, etc. - the patient understands and agrees to proceed. I have answered all the patient's questions to the patient's satisfaction and the patient has no further questions. The patient has been given instructions for the colon cleansing preparation. Orders Orders: Colonoscopy 01/23/19 EGD 01/23/19 Medications New: ferrous sulfate (Feosol) 325 mg PO DAILY Coding Level of Care Code Off vis,new,level 3 Diagnoses Iron deficiency anemia due to chronic blood loss D50.0 ??Anemia type: iron deficiency ??Iron deficiency anemia type: chronic blood loss Heartburn R12 01/29/19 1654 <Electronically signed by Faraz gary MD> Date _ Faraz Connolly MD I have re-examined the patient. There are no clinical changes since date of exam.
[2019-02-05 12:03] VITALS: BMI 25.0
[2019-02-11] VITALS (8 sets, daily range): BP systolic 94–135; BP diastolic 64–87; PULSE 60–82; RESP 16; TEMP 36.2–36.3; O2SAT 92–94; BMI 24.4
[2019-02-11] MEDS: Lactated Ringers 1,000 ML 100 ML IV (06:29)
--- NOTE | 2019-02-11 07:00 | IMM_PTH ---
PATIENT: CAITLIN MOLINA LOC: EN U#:[id number] AGE/SX: 68/M ROOM: RE02/11/[address]: Dr. Faraz Connolly MD : 1950 BED: DIS: 02/11/2019 SPEC #: [id number] RECD: 02/11/19 13:52 STATUS: EZ REQ #: [id number] SUSY: 02/11/19 07:[address]: Faraz Connolly DEPT: IMMUNOHISTOCHEMISTRY RECD BY: Dayan Mcguire ENTERED: 02/11/19 13:52 SP TYPE: IMMUNO OTHR DR: Dr. Joe Blanco MD Tissues: Stomach, NOS Procedures: H Pylori (initial) PHYSICIAN & INSTITUTION [place] [id number] SPECIMEN INFORMATION: Tissue Source: Antrum biopsy Clinical Info: Iron deficiency anemia Specimen Number: [id number] CPT code: 58068 METHODOLOGY: Deparaffinized sections of prefer/formalin-fixed tissue or PAP/DQ stained slides are incubated with monoclonal/polyclonal antibodies/oligonucleotide probes. Localization is made via biotin free immunoperoxidase method. Appropriate controls are performed and reacted as expected. Results on target cell population are indicated in the following table: RESULTS: ANTIBODY / CLONE RESULT H Pylori (polyclonal) negative These tests were developed and their performance characteristics determined by [facility]. They may not have been cleared or approved by the [place]. Food and Drug Administration. The FDA has determined that such clearance or approval is not necessary. INTERPRETATION: Antrum biopsy: Negative for Helicobacter pylori organisms. AM:darrell 02/12/19
--- NOTE | 2019-02-11 07:00 | EGD_PTH ---
PATIENT: CAITLIN MOLINA LOC: EN U#:[id number] AGE/SX: 68/M ROOM: RE02/11/[address]: Dr. Faraz Connolly MD : 1950 BED: DIS: 02/11/2019 SPEC #: [id number] RECD: 02/11/19 11:39 STATUS: EZ KATHYA #: [id number] SUSY: 02/11/19 07:[address]: Faraz Connolly DEPT: SURGICAL PATHOLOGY RECD BY: Rajani Daniel ENTERED: 02/11/19 12:01 SP TYPE: EGD BIOPSY OTHR DR: Dr. Joe Blanco MD Tissues: Gastric mucous membrane Procedures: Surgery Specimen Level IV HEADER OPERATION: Colonoscopy, EGD ([facility] [place] PRE-OP DIAGNOSIS: Iron deficiency anemia TISSUE SUBMITTED: Antrum biopsy for H. pylori and path MICROSCOPIC DIAGNOSIS Gastric antrum, biopsy: Gastric mucosa with no pathologic diagnosis. See comment. AM:darrell 02/12/19 COMMENT The results of immunohistochemistry for Helicobacter pylori will be reported separately ([id number]). MICROSCOPIC DESCRIPTION Slides are reviewed. GROSS DESCRIPTION Received in fixative is one container labeled with the patient's name and designated antrum biopsy. The specimen consists of one irregular fragment of light burleson soft tissue that measures 0.2 x 0.1 x 0.1 cm. The specimen is totally submitted in one cassette. / SJ:darrell 02/11/19 TC:5 CPT: 92838
--- NOTE | 2019-02-11 07:28 | OP.ENDO_ITS ---
02/11/2019 Joe Blanco [address] [place] [address] Re : Upper GI endoscopy procedure for Kenny Baileylin Dear Dr. Blanco This procedure was performed on Monday, February 11, 2019. My impressions and recommendations are as follows: Impressions : - 3 cm hiatal hernia. No specimens collected. - Gastritis. Biopsied. - Normal examined duodenum. No specimens collected. Recommendations : - Discharge patient to home. - Resume previous diet. - Continue present medications. - Await pathology results. - Repeat upper endoscopy (date not yet determined) to assess disease activity. - Return to my office in 1 week. My findings are described in the full procedure note, which is enclosed. If I can be of further assistance, please feel free to contact me at Doctor phone number(s): , Fax: [phone], Work: . Sincerely, MD Faraz Horton MD 02/11/2019 7:27:21 AM This report has been signed electronically.
--- NOTE | 2019-02-11 07:29 | OP.ENDO_ITS ---
02/11/2019 Joe Blanco [address] [place] [address] Re : Colonoscopy procedure for Kenny Choe Dear Dr. Blanco This procedure was performed on Monday, February 11, 2019. My impressions and recommendations are as follows: Impressions : - Non-bleeding internal hemorrhoids. No specimens collected. - The examination was otherwise normal. Recommendations : - Discharge patient to home. - Resume previous diet. - Continue present medications. - Repeat colonoscopy in 10 years for screening purposes. - Return to my office in 1 week. My findings are described in the full procedure note, which is enclosed. If I can be of further assistance, please feel free to contact me at Doctor phone number(s): , Fax: [phone], Work: . Sincerely, MD Faraz Horton MD 02/11/2019 7:29:15 AM This report has been signed electronically.
== END 2019-02-11 08:16 | disposition home or self-care (01) ==
LOC: EN 05:52 → AC 05:54
PROVIDERS: Family Provider Family Medicine; PCP Family Medicine; Referring Provider Family Medicine; Visit Provider Surgery
PROC: 0DJD8ZZ Inspection of Lower Intestinal Tract, Via Natural or Artificial Opening Endoscopic (ICD-10-PCS; CPT 45378; principal; 2019-02-11 06:55)
DX: D50.0 Iron deficiency anemia secondary to blood loss (chronic) (principal); K29.70 Gastritis, unspecified, without bleeding; K64.8 Other hemorrhoids; K44.9 Diaphragmatic hernia without obstruction or gangrene; K21.9 Gastro-esophageal reflux disease without esophagitis; I48.0 Paroxysmal atrial fibrillation; I73.9 Peripheral vascular disease, unspecified; J44.9 Chronic obstructive pulmonary disease, unspecified; I10 Essential (primary) hypertension; Z87.891 Personal history of nicotine dependence; Z79.02 Long term (current) use of antithrombotics/antiplatelets; Z79.899 Other long term (current) drug therapy; Z86.718 Personal history of other venous thrombosis and embolism
CPT/HCPCS: 43239; 45378; 88305; 88342; J7120; J1610; J2405

== ENCOUNTER 2019-03-04 10:00 | Outpatient (RCR) | payer MEDICARE, MEDICAID, SELFPAY ==
[2019-02-05 12:03] VITALS: BMI 25.0
[2019-02-08 00:37] VITALS: BP 153/91; PULSE 70; RESP 18; TEMP 36.9
[2019-02-11 06:15] VITALS: BMI 24.4
[2019-02-25 10:12] VITALS: BP 139/80; PULSE 76; RESP 18; TEMP 36.6; BMI 24.4
--- NOTE | 2019-02-25 13:13 | PCM.WC.PN ---
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 Status: Chronic Current Visit: Yes Code(s): L97.913 - Non-pressure chronic ulcer of unspecified part of right lower leg with necrosis of muscle (2) Foot drop, right Status: Chronic Current Visit: Yes Code(s): M21.371 - Foot drop, right foot (3) Difficulty walking Status: Chronic Current Visit: Yes Code(s): R26.2 - Difficulty in walking, not elsewhere classified (4) Other specified peripheral vascular diseases Status: Chronic Current Visit: Yes Code(s): I73.89 - Other specified peripheral vascular diseases (5) Delayed wound healing Status: Chronic Current Visit: Yes Code(s): T14.8XXD - Other injury of unspecified body region, subsequent encounter (6) Malnutrition Status: Chronic Current Visit: Yes Code(s): E46 - Unspecified protein-calorie malnutrition Type of Wound Date of Service: 02/27/19 Chief Complaint: Leg ulcer right History of Wound: Mr. Choe is a 68 year old with past medical history of atrial fibrillation, peripheral arterial disease status post left lower extremity stenting and tobacco abuse presents for follow-up of right leg ulcer. He had a reported deep venous thrombosis of the right leg and developed subsequent compartment syndrome previously. He underwent surgical fasciotomy on July 07 at [facility] and has a resultant chronic wound. He had a recent surgical debridement and serial application of advanced wound care product with delayed closure and application of wound VAC on 08/15/2018 and 08/19/2018, respectively. He also had a tendon debridement with versa jet application of amnio fill and epi cord again and application of sarah wound VAC. He has kept this clean and intact. Essentially he has had a chronic ulcer with exposed necrotic muscle since the end of June 2018. He continues to use his ankle-foot orthotic as recommended. He is scheduled to go to need to get his brace adjusted including a stiffer ankle hinge. His daughter denies drainage for the past several days. Progress of Wound: Improving - Physical Exam Vital Signs Temp Pulse Resp BP 97.8 F 76 18 139/80 H 02/25/19 10:12 02/25/19 10:12 02/25/19 10:12 02/25/19 10:12 General: Alert, Oriented x3, Cooperative, No apparent distress Extremities: No cyanosis, Capillary Refill Less than 3 Seconds, No Calf Tenderness, Diminished Peripheral Pulses, Edema Skin: Ulcer/ Wound - No purulence, erythema, streaking, odor, infection Wound Measurements and Assessment WC - Nurse 1 - General Ulcer Measurement Start: 02/25/19 10:12 Freq: Status: Active Protocol: Activity Type Activity Date Activity User E-Sign Co-Sign Detail Recorded Client Recorded Date Recorded By Document 02/25/19 10:12 BLANKA [id number] 02/25/19 10:13 BLANKA 02/25/19 10:12 Wound Center Nurse 1 [Ulcer Assessment] #2 right lower leg -Combined with other wound No -Current Size (cm) - Length 0.1 -Current Size (cm) - Width 0.1 -Current Size (cm) - Depth 0.1 -Total Square Cm 0.01 -Photo Taken No -Epithelialization Large 67-100% -Tunneling No -Undermining/Tunneling No -Circular Undermining No -Exudate Amt Small -Exudate Type Serosanguineous -Wound Margin Flat & Intact -Granulation Amt Large (67-100%) -Granulation Quality [place] -Slough/Fibrin No -Structure Exposed N/A -Texture (Denisa-wound Skin Appearance) Assessed, Scarring -Moisture (Denisa-wound Skin Appearance Assessed,Dry/ ) Scaly -Color (Denisa-wound Skin Appearance) Assessed -Temperature (Denisa-wound Skin No Abnormality Appearance) (Pt Warm) -Tenderness on Palpation (Denisa-wound No Skin Appearance) -Ulcer Cleansing Rinsed/ Irrigated with Saline -Foul Odor after Cleansing No -Anesthetic Used 4% Lidocaine Solution [Edema Assessment] -Lower Limb Edema Present Yes -Right Calf (cm) 32 -Right Ankle (cm) 19.6 - Nurse 2 - General Ulcer CM Notes Start: 02/25/19 10:12 Freq: Status: Active Protocol: Activity Type Activity Date Activity User E-Sign Co-Sign Detail Recorded Client Recorded Date Recorded By Document 02/25/19 10:44 COURTNEY [id number] 02/25/19 10:48 AN 02/25/19 10:44 Wound Center Nurse 2 [Procedure/Treatment] #2 right lower leg -Time 10:44 -Correct Patient Yes -Correct Side, Site, Position Yes -Correct Procedure Yes -Procedure Performed Yes -Type of Procedure Debridement -Clinical Debridement Subcutaneous -Post Debridement Size (cm) - Length 2.5 -Post Debridement Size (cm) - Width 0.4 -Post Debridement Size (cm) - Depth 0.4 -Total Square Cm 1.00 -Wound/Ulcer Outcome Not Healed -Ulcer Cleansing Rinsed/ Irrigated with Saline -Foul Odor after Cleansing No -Bioengineered Tissue No -Bleeding Controlled with Pressure -Offloading Yes -Treatment Response Procedure Tolerated Well [See Physician Procedure note for Specifics] Pain Scale: 0-10 Numeric [Pain] -Is Patient Pain Free? Yes Musculoskeletal: No Tenderness to Palpation of Joints or Extremities, Muscle Wasting, - - Compartment soft right Neurological: Sensory exam intact to light touch and pain Psych/Mental Status: Normal Affect, Appropriate Debridement Note Post-Debridement Measurements/Treatment WC - Nurse 2 - General Ulcer CM Notes Start: 02/25/19 10:12 Freq: Status: Active Protocol: Activity Type Activity Date Activity User E-Sign Co-Sign Detail Recorded Client Recorded Date Recorded By Document 02/25/19 10:44 AN [id number] 02/25/19 10:48 AN 02/25/19 10:44 Wound Center Nurse 2 #2 right lower leg -Time 10:44 -Correct Patient Yes -Correct Side, Site, Position Yes -Correct Procedure Yes -Procedure Performed Yes -Type of Procedure Debridement -Clinical Debridement Subcutaneous -Post Debridement Size (cm) - Length 2.5 -Post Debridement Size (cm) - Width 0.4 -Post Debridement Size (cm) - Depth 0.4 -Total Square Cm 1.00 -Wound/Ulcer Outcome Not Healed -Ulcer Cleansing Rinsed/ Irrigated with Saline -Foul Odor after Cleansing No -Bioengineered Tissue No -Bleeding Controlled with Pressure -Offloading Yes -Treatment Response Procedure Tolerated Well Pain Scale: 0-10 Numeric Is Patient Pain Free? Yes Wound debrided: lateral leg Laterality: Right Type of Debridement: Excisional debridement Anesthesia Used: 5% Lidocaine Gel Depth: in the subcutaneous layer Percentage of wound debrided: 100 Instrument Used: #15 blade Tissue Removed: fibrous, devitalized subcutaneous, biofilm, slough Severity: Fat Layer Exposed Amount of bleeding with debridement: Mild Bleeding Controlled with: Pressure Patient tolerated procedure well Assessment/Plan Active Problems (Last Reviewed 01/29/19 @ 16:53 by Faraz Connolly MD) Foot drop, right (Chronic) Difficulty walking (Chronic) Other specified peripheral vascular diseases (Chronic) Delayed wound healing (Chronic) Malnutrition (Chronic) 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 Peripheral vascular disease. Leg edema and rule out venous insufficiency. Malnutrition. Recent tobacco use. Walking difficulty. Pain in right limb lower. Contraction right lower extremity at ankle level. Right dropfoot Plan: Patient was carefully examined and evaluated today. The etiology of his case and surgical indications were discussed today. The anticipated healing time was also discussed. He understands his comorbidities are contributing to delayed healing. He was reassured there are no signs of infection noted today. The ulcer was debrided as noted in the clinical panel. I reviewed and discussed his case. No exposed tendon is noted. He is reassured no local signs of infection exist today. [place] was applied today; to change daily. I would like to apply additional medical healing product however his insurance did not approve this for the clinical setting. We discussed additional treatment options including going back to the operating room for surgical excision with application of amnio fill versus excision of the remaining ulcer site with delayed primary closure. He would like to move forward with the second option next week. To continue to eat and take meal supplements as tolerated. [place] prescription was previously provided and he was advised on proper use. To keep pressure off this ulcer by avoiding lying on his right lateral leg. To reduce unnecessary pressure by wearing a light Tubigrip compression garment. To continue ankle-foot orthotic use for dropfoot. It is also noted he continues to smoke which significantly impairs wound healing. He understands his responsibility to try to cut down to optimize his healing. He was offered smoking cessation. He also relates he is not able to follow-up next week usual colonoscopy. I recommended he follows up with a covering wound care center provider on an alternative day and he wants to think about this. In the meantime he is tentatively scheduled to return in 1 week. I answered all his questions.
[2019-03-04 10:57] VITALS: BP 120/75; PULSE 76; RESP 18; TEMP 36.9; BMI 24.4
--- NOTE | 2019-03-04 12:27 | PCM.WC.PN ---
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 Status: Chronic Current Visit: Yes Code(s): L97.913 - Non-pressure chronic ulcer of unspecified part of right lower leg with necrosis of muscle (2) Foot drop, right Status: Chronic Current Visit: Yes Code(s): M21.371 - Foot drop, right foot (3) Difficulty walking Status: Chronic Current Visit: Yes Code(s): R26.2 - Difficulty in walking, not elsewhere classified (4) Other specified peripheral vascular diseases Status: Chronic Current Visit: Yes Code(s): I73.89 - Other specified peripheral vascular diseases (5) Delayed wound healing Status: Chronic Current Visit: Yes Code(s): T14.8XXD - Other injury of unspecified body region, subsequent encounter (6) Malnutrition Status: Chronic Current Visit: Yes Code(s): E46 - Unspecified protein-calorie malnutrition Type of Wound Date of Service: 03/04/19 Chief Complaint: Leg ulcer right History of Wound: Mr. Choe is a 69 year old with past medical history of atrial fibrillation, peripheral arterial disease status post left lower extremity stenting and tobacco abuse presents for follow-up of right leg ulcer. He had a reported deep venous thrombosis of the right leg and developed subsequent compartment syndrome previously. He underwent surgical fasciotomy on July 07 at [facility] and has a resultant chronic wound. He had a recent surgical debridement and serial application of advanced wound care product with delayed closure and application of wound VAC on 08/15/2018 and 08/19/2018, respectively. He also had a tendon debridement with versa jet application of amnio fill and epi cord again and application of sarah wound VAC. He has kept this clean and intact. Essentially he has had a chronic ulcer with exposed necrotic muscle since the end of June 2018. He continues to use his ankle-foot orthotic as recommended. Progress of Wound: stable - Physical Exam Vital Signs Temp Pulse Resp BP 98.4 F 76 18 120/75 03/04/19 10:57 03/04/19 10:57 03/04/19 10:57 03/04/19 10:57 General: Alert, Oriented x3, Cooperative, No apparent distress HEENT: Atraumatic Extremities: No cyanosis, Capillary Refill Less than 3 Seconds, No Calf Tenderness - Negative Yen and Watts sign right hand compartments are soft to palpate right, Diminished Peripheral Pulses, Edema - Mild right leg, Tenderness - There is tenderness to palpate the right leg ulcer site Skin: Ulcer/ Wound - No purulence, erythema, streaking, odor, infection. The peripheral skin is hairless and atrophic. It is noted the wound margins are rolled and invaginated within the wound bed. No exposed bone or muscles noted. Wound Measurements and Assessment WC - Nurse 1 - General Ulcer Measurement Start: 02/25/19 10:12 Freq: Status: Active Protocol: Activity Type Activity Date Activity User E-Sign Co-Sign Detail Recorded Client Recorded Date Recorded By Document 03/04/19 10:57 [email or web address] [id number] 03/04/19 11:04 03/04/19 10:57 Wound Center Nurse 1 [Ulcer Assessment] #2 right lower leg -Combined with other wound No -Current Size (cm) - Length 1.4 -Current Size (cm) - Width 0.2 -Current Size (cm) - Depth 0.1 -Total Square Cm 0.28 -Photo Taken No -Epithelialization Small 1-33% -Tunneling No -Undermining/Tunneling No -Circular Undermining No -Exudate Amt Small -Exudate Type Serosanguineous -Wound Margin Flat & Intact -Granulation Amt Small (1-33%) -Granulation Quality [place],Red -Slough/Fibrin Yes -Necrosis Amt Small (1-33%) -Necrotic Tissue Type Adherent Slough -Structure Exposed N/A -Texture (Denisa-wound Skin Appearance) Assessed, Scarring -Moisture (Denisa-wound Skin Appearance Assessed,Dry/ ) Scaly -Color (Denisa-wound Skin Appearance) Assessed -Temperature (Denisa-wound Skin No Abnormality Appearance) (Pt Warm) -Tenderness on Palpation (Denisa-wound No Skin Appearance) -Ulcer Cleansing Rinsed/ Irrigated with Saline -Foul Odor after Cleansing No -Anesthetic Used 5% Lidocaine Gel [Edema Assessment] -Right Calf (cm) 31.2 -Right Ankle (cm) 19.5 WC - Nurse 2 - General Ulcer CM Notes Start: 02/25/19 10:12 Freq: Status: Active Protocol: Activity Type Activity Date Activity User E-Sign Co-Sign Detail Recorded Client Recorded Date Recorded By Document 03/04/19 11:20 AN [id number] 03/04/19 11:25 AN 03/04/19 11:20 Wound Center Nurse 2 [Procedure/Treatment] #2 right lower leg -Procedure Performed No [See Physician Procedure note for Specifics] Pain Scale: 0-10 Numeric [Pain] -Is Patient Pain Free? Yes Musculoskeletal: No Tenderness to Palpation of Joints or Extremities, Muscle Wasting Neurological: Sensory exam intact to light touch and pain Psych/Mental Status: Normal Affect, Appropriate Debridement Note Post-Debridement Measurements/Treatment WC - Nurse 2 - General Ulcer CM Notes Start: 02/25/19 10:12 Freq: Status: Active Protocol: Activity Type Activity Date Activity User E-Sign Co-Sign Detail Recorded Client Recorded Date Recorded By Document 02/25/19 10:44 AN [id number] 02/25/19 10:48 AN Document 03/04/19 11:20 AN [id number] 03/04/19 11:25 AN 02/25/19 03/04/19 10:44 11:20 Wound Center Nurse 2 #2 right lower leg -Time 10:44 -Correct Patient Yes -Correct Side, Site, Position Yes -Correct Procedure Yes -Procedure Performed Yes No -Type of Procedure Debridement -Clinical Debridement Subcutaneous -Post Debridement Size (cm) - Length 2.5 -Post Debridement Size (cm) - Width 0.4 -Post Debridement Size (cm) - Depth 0.4 -Total Square Cm 1.00 -Wound/Ulcer Outcome Not Healed -Ulcer Cleansing Rinsed/ Irrigated with Saline -Foul Odor after Cleansing No -Bioengineered Tissue No -Bleeding Controlled with Pressure -Offloading Yes -Treatment Response Procedure Tolerated Well Pain Scale: 0-10 Numeric Is Patient Pain Free? Yes Yes Wound debrided: lateral leg Laterality: Right Type of Debridement: Excisional debridement Anesthesia Used: 4% Lidocaine Solution, - - 1% lidocaine with epinephrine injection was performed denisa-ulcer and subdermal to the ulcer, 7 cc Depth: in the subcutaneous layer - Post debridement measurement 1.6 x 0.5 x 0.4 cm Percentage of wound debrided: 100, - Instrument Used: #15 blade, Forceps Tissue Removed: fibrous, devitalized subcutaneous, biofilm, slough Severity: Fat Layer Exposed Amount of bleeding with debridement: Mild Bleeding Controlled with: Pressure, - - Delayed primary closure with 2-0 Ethilon was performed utilizing vertical and horizontal mattress technique to reapproximate the skin edges and everted manner. Verbal consent was obtained prior to performing this procedure and local anesthetic was administered. He tolerated this well and hemostasis was considered controlled. The indication, planned procedure, anticipated healing time management were discussed in detail prior to proceeding. Alternative treatment options were also discussed during several prior visits and he is ready to proceed with this procedure at this time. I answered all his questions. 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 Peripheral vascular disease. Leg edema and rule out venous insufficiency. Malnutrition. Recent tobacco use. Walking difficulty. Pain in right limb lower. Contraction right lower extremity at ankle level. Right dropfoot Plan: Patient was carefully examined and evaluated today. The etiology of his case and surgical indications were discussed today. The anticipated healing time was also discussed. He understands his comorbidities are contributing to delayed healing. He was reassured there are no signs of infection noted today. The ulcer was debrided as noted in the clinical panel. I reviewed and discussed his case. No exposed tendon is noted. He is reassured no local signs of infection exist today. After the debridement with delayed primary closure was performed a dressing consisting of Betadine gauze and Kerlix and compression dressing was applied. He was advised to keep this clean, dry, and intact until follow-up next week. A prescription for [place] was provided for postprocedure pain management. A total of 5 pills were prescribed he was advised on safe and proper use. Transition to [id number] Tylenol in a safe manner after this is completed if needed for pain. Disability parking placard was also prescribed today and he was advised to minimize unnecessary walking. To continue to eat and take meal supplements as tolerated. [place] prescription was previously provided and he was advised on proper use. To keep pressure off this ulcer by avoiding lying on his right lateral leg. To reduce unnecessary pressure by wearing a light Tubigrip compression garment. To continue ankle-foot orthotic use for dropfoot. It is also noted he continues to smoke which significantly impairs wound healing. He understands it his responsibility to try to cut down to optimize his healing. He was offered smoking cessation. To return to clinic in 1 week or call sooner if there are any questions or concerns. I answered all his questions.
== END 2019-03-09 23:59 ==
LOC: WC 10:00
PROVIDERS: Family Provider Family Medicine; PCP Family Medicine; Referring Provider Podiatrist; Visit Provider Podiatrist
DX: I73.89 Other specified peripheral vascular diseases (principal); R26.2 Difficulty in walking, not elsewhere classified; L97.812 Non-pressure chronic ulcer of other part of right lower leg with fat layer exposed; M21.371 Foot drop, right foot; I48.91 Unspecified atrial fibrillation; Z72.0 Tobacco use; Z86.718 Personal history of other venous thrombosis and embolism
CPT/HCPCS: 11042; 99212; G0463

== ENCOUNTER 2019-04-08 10:00 | Outpatient (RCR) | payer MEDICARE, MEDICAID, SELFPAY ==
[2019-03-10 00:38] VITALS: BP 120/75; PULSE 76; RESP 18; TEMP 36.9
[2019-03-11 15:13] VITALS: BP 130/78; PULSE 80; RESP 16; TEMP 36.8; BMI 24.4
--- NOTE | 2019-03-11 15:17 | WC ---
sutures left intact
--- NOTE | 2019-03-11 21:28 | PCM.WC.PN ---
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 Choe is a 69 year old with past medical history of atrial fibrillation, peripheral arterial disease status post left lower extremity stenting and tobacco abuse presents for follow-up of right leg ulcer. He had a reported deep venous thrombosis of the right leg and developed subsequent compartment syndrome previously. He underwent surgical fasciotomy on July 07 at [facility] and has a resultant chronic wound. He had a recent surgical debridement and serial application of advanced wound care product with delayed closure and application of wound VAC on 08/15/2018 and 08/19/2018, respectively. He also had a tendon debridement with versa jet application of amnio fill and epi cord again and application of sarah wound VAC. He had an excision of the remaining ulcer last week with primary closure with nylon sutures. He is kept the dressing intact. He continues to use his ankle-foot orthotic. His pain is rated as a 1 out of 10 today. Progress of Wound: stable - Physical Exam Vital Signs Temp Pulse Resp BP 98.2 F 80 16 130/78 H 03/11/19 15:13 03/11/19 15:13 03/11/19 15:13 03/11/19 15:13 General: Alert, Oriented x3, Cooperative, No apparent distress Extremities: No cyanosis, Capillary Refill Less than 3 Seconds, No Calf Tenderness - Negative Yen and Watts sign, Diminished Peripheral Pulses, Edema - Mild right, Tenderness - No pain with ulcer closure manipulation right leg. Compartments are soft to palpate right lower extremity Skin: Ulcer/ Wound - No purulence, erythema, streaking, odor, infection. The skin edges are well aligned and coapting the right leg. There is no necrosis or active drainage noted. The peripheral skin is atrophic and hairless Wound Measurements and Assessment WC - Nurse 1 - General Ulcer Measurement Start: 03/11/19 15:13 Freq: Status: Active Protocol: Activity Type Activity Date Activity User E-Sign Co-Sign Detail Recorded Client Recorded Date Recorded By Document 03/11/19 15:13 [facility] [id number] 03/11/19 15:17 [facility] 03/11/19 15:13 Wound Center Nurse 1 [Ulcer Assessment] #2 right lower leg -Combined with other wound No -Current Size (cm) - Length 0.1 -Current Size (cm) - Width 0.1 -Current Size (cm) - Depth 0.1 -Total Square Cm 0.01 -Photo Taken No -Exudate Amt Medium -Exudate Type Serosanguineous -Texture (Denisa-wound Skin Appearance) Assessed -Moisture (Denisa-wound Skin Appearance Assessed ) -Color (Denisa-wound Skin Appearance) Assessed -Temperature (Denisa-wound Skin No Abnormality Appearance) (Pt Warm) -Tenderness on Palpation (Denisa-wound Yes Skin Appearance) -Ulcer Cleansing Rinsed/ Irrigated with Saline -Foul Odor after Cleansing No -Anesthetic Used 4% Lidocaine Solution WC - Nurse 2 - General Ulcer CM Notes Start: 03/11/19 15:13 Freq: Status: Active Protocol: Activity Type Activity Date Activity User E-Sign Co-Sign Detail Recorded Client Recorded Date Recorded By Document 03/11/19 15:51 AN [id number] 03/11/19 15:51 AN 03/11/19 15:51 Pain Scale: 0-10 Numeric [Pain] -Is Patient Pain Free? Yes Musculoskeletal: No Tenderness to Palpation of Joints or Extremities, Muscle Wasting, - - Weakness and dropfoot noted right lower extremity Neurological: Sensory exam intact to light touch and pain Psych/Mental Status: Normal Affect, Appropriate Debridement Note Post-Debridement Measurements/Treatment - Nurse 2 - General Ulcer CM Notes Start: 03/11/19 15:13 Freq: Status: Active Protocol: Activity Type Activity Date Activity User E-Sign Co-Sign Detail Recorded Client Recorded Date Recorded By Document 03/11/19 15:51 AN [id number] 03/11/19 15:51 AN 03/11/19 15:51 Pain Scale: 0-10 Numeric Is Patient Pain Free? Yes No debridement was completed today - ulcer exicsion with primary closure was performed last week Assessment/Plan Assessment: Right leg ulcer with necrotic tendon (This is a chronic ulcer with an onset of June 2018) now with recent ulcer excision and primary closure performed 1 week ago. Peripheral vascular disease. Leg edema and rule out venous insufficiency. Malnutrition. Recent tobacco use. Walking difficulty. Pain in right limb lower. Contraction right lower extremity at ankle level. Right dropfoot Plan: Patient was carefully examined and evaluated today. The etiology of his case and surgical indications were discussed today. The anticipated healing time was also discussed. He understands his comorbidities are contributing to delayed healing. He was reassured there are no signs of infection noted today. The ulcer was debrided as noted in the clinical panel. I reviewed and discussed his case. No exposed tendon is noted. He is reassured no local signs of infection exist today. Ulcer excision debridement with primary closure was performed 1 week ago and the site was kept intact. A new dressing consisting of dry gauze and Kerlix and compression dressing was applied. To keep this clean and intact until follow-up next week. To continue to eat and take meal supplements as tolerated. [place] prescription was previously provided and he was advised on proper use. To keep pressure off this ulcer by avoiding lying on his right lateral leg. To reduce unnecessary pressure by wearing a light Tubigrip compression garment. To continue ankle-foot orthotic use for dropfoot. It is also noted he continues to smoke which significantly impairs wound healing. He understands it his responsibility to try to cut down to optimize his healing. He was offered smoking cessation. To return to clinic in 1 week or call sooner if there are any questions or concerns. I answered all his questions.
[2019-03-18 10:33] VITALS: BP 142/80; PULSE 77; RESP 18; TEMP 36.6; BMI 24.4
--- NOTE | 2019-03-18 10:35 | WC ---
PT STERISTRIPS AND SUTURES INTACT AND WOUND IS WELL APPROXIMATED
--- NOTE | 2019-03-18 11:42 | PCM.WC.PN ---
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 Choe is a 69 year old with past medical history of atrial fibrillation, peripheral arterial disease status post left lower extremity stenting and tobacco abuse presents for follow-up of right leg ulcer. He had a reported deep venous thrombosis of the right leg and developed subsequent compartment syndrome previously. He underwent surgical fasciotomy on July 07 at [facility] and has a resultant chronic wound. He had a recent surgical debridement and serial application of advanced wound care product with delayed closure and application of wound VAC on 08/15/2018 and 08/19/2018, respectively. He also had a tendon debridement with versa jet application of amnio fill and epi cord again and application of sarah wound VAC. He had an excision of the remaining ulcer last week with primary closure with nylon sutures. He is kept the dressing intact. He continues to use his ankle-foot orthotic. His pain is rated as a 1 out of 10 today. Progress of Wound: Improving - Physical Exam Vital Signs Temp Pulse Resp BP 98 F 77 18 142/80 H 03/18/19 10:33 03/18/19 10:33 03/18/19 10:33 03/18/19 10:33 General: Alert, Oriented x3, Cooperative, No apparent distress HEENT: Atraumatic Extremities: No cyanosis, Capillary Refill Less than 3 Seconds, No Calf Tenderness - Negative Yen and Watts sign right lower extremity. Compartments are soft to palpate right lower extremity, Diminished Peripheral Pulses, Edema Skin: Ulcer/ Wound - No purulence, erythema, string, odor, infection. The excision ulcer site with primary suture closure is intact without janel gapping, necrosis, or infection. There is scant drainage noted. Wound Measurements and Assessment WC - Nurse 1 - General Ulcer Measurement Start: 03/11/19 15:13 Freq: Status: Active Protocol: Activity Type Activity Date Activity User E-Sign Co-Sign Detail Recorded Client Recorded Date Recorded By Document 03/18/19 10:33 RB [id number] 03/18/19 10:37 RB 03/18/19 10:33 Wound Center Nurse 1 [Edema Assessment] -Lower Limb Edema Present Yes -Right Calf (cm) 32.8 -Right Ankle (cm) 20.5 03/18/19 10:35 Wound Center by Chrystal Jacobson PT STERISTRIPS AND SUTURES INTACT AND WOUND IS WELL APPROXIMATED Initialized on 03/18/19 10:35 - END OF NOTE WC - Nurse 2 - General Ulcer CM Notes Start: 03/11/19 15:13 Freq: Status: Active Protocol: Activity Type Activity Date Activity User E-Sign Co-Sign Detail Recorded Client Recorded Date Recorded By Document 03/18/19 10:53 AN [id number] 03/18/19 10:53 AN 03/18/19 10:53 Pain Scale: 0-10 Numeric [Pain] -Is Patient Pain Free? Yes Musculoskeletal: No Tenderness to Palpation of Joints or Extremities, Muscle Wasting Neurological: Sensory exam intact to light touch and pain Psych/Mental Status: Normal Affect, Appropriate Debridement Note Post-Debridement Measurements/Treatment WC - Nurse 2 - General Ulcer CM Notes Start: 03/11/19 15:13 Freq: Status: Active Protocol: Activity Type Activity Date Activity User E-Sign Co-Sign Detail Recorded Client Recorded Date Recorded By Document 03/11/19 15:51 AN [id number] 03/11/19 15:51 AN Document 03/18/19 10:53 AN [id number] 03/18/19 10:53 AN 03/11/19 03/18/19 15:51 10:53 Pain Scale: 0-10 Numeric Is Patient Pain Free? 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 Peripheral vascular disease. Leg edema and rule out venous insufficiency. Malnutrition. Recent tobacco use. Walking difficulty. Pain in right limb lower. Contraction right lower extremity at ankle level. Right dropfoot Plan: Patient was carefully examined and evaluated today. The etiology of his case and surgical indications were discussed today. The anticipated healing time was also discussed. He understands his comorbidities are contributing to delayed healing. He was reassured there are no signs of infection noted today. I reviewed and discussed his case. No exposed tendon is noted. He is reassured no local signs of infection exist today. Ulcer excision debridement with primary closure was performed 2 weeks ago and the site was kept intact. A new dressing consisting of dry gauze and Kerlix and compression dressing was applied. To keep this clean and intact until follow-up next week. To continue to eat and take meal supplements as tolerated. [place] prescription was previously provided and he was advised on proper use. To keep pressure off this ulcer by avoiding lying on his right lateral leg. To reduce unnecessary pressure by wearing a light Tubigrip compression garment. To continue ankle-foot orthotic use for dropfoot. It is also noted he continues to smoke which significantly impairs wound healing. He understands it his responsibility to try to cut down to optimize his healing. He was offered smoking cessation. To return to clinic in 1 week or call sooner if there are any questions or concerns. I answered all his questions.
[2019-03-25 10:06] VITALS: BP 134/74; PULSE 80; RESP 16; TEMP 37; BMI 24.4
--- NOTE | 2019-03-25 10:09 | WC ---
SUTURES/STERIS INTACT.
--- NOTE | 2019-03-25 10:52 | PN.PCM_ITS ---
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 Status: Chronic Current Visit: Yes Code(s): L97.913 - Non-pressure chronic ulcer of unspecified part of right lower leg with necrosis of muscle (2) Difficulty walking Status: Chronic Current Visit: Yes Code(s): R26.2 - Difficulty in walking, not elsewhere classified (3) Pain in right lower leg Status: Resolved Current Visit: Yes Code(s): M79.661 - Pain in right lower leg (4) Other specified peripheral vascular diseases Status: Chronic Current Visit: Yes Code(s): I73.89 - Other specified peripheral vascular diseases (5) Delayed wound healing Status: Chronic Current Visit: Yes Code(s): T14.8XXD - Other injury of unspecified body region, subsequent encounter (6) Tobacco abuse Status: Chronic Current Visit: Yes Code(s): Z72.0 - Tobacco use Type of Wound Date of Service: 03/25/19 Chief Complaint: Leg ulcer right History of Wound: Mr. Choe is a 69 year old with past medical history of atrial fibrillation, peripheral arterial disease status post left lower extremity stenting and tobacco abuse presents for follow-up of right leg ulcer. He had a reported deep venous thrombosis of the right leg and developed subsequent compartment syndrome previously. He underwent surgical fasciotomy on July 07 at [facility] and has a resultant chronic wound. He had a recent surgical debridement and serial application of advanced wound care product with delayed closure and application of wound VAC on 08/15/2018 and 08/19/2018, respectively. He also had a tendon debridement with versa jet application of amnio fill and epi cord again and application of sarah wound VAC. He had an excision of the remaining ulcer a few weeks ago with primary closure with nylon sutures. He is kept the dressing intact. He continues to use his ankle-foot orthotic. He denies pain. Progress of Wound: Improving - Physical Exam Vital Signs Temp Pulse Resp BP 98.6 F 80 16 134/74 H 03/25/19 10:06 03/25/19 10:06 03/25/19 10:06 03/25/19 10:06 General: Alert, Oriented x3, Cooperative, No apparent distress Extremities: No cyanosis, Capillary Refill Less than 3 Seconds, No Calf Tenderness - Negative Watts right, Diminished Peripheral Pulses, Edema - Mild Skin: Ulcer/ Wound - No purulence, erythema, string, odor, infection. The remaining 3 sutures are loose and no longer approximating skin edges. Upon removal there is a small skin discontinuity noted at the distal aspect with significant peripheral epithelization noted to the other portions. There is no deep tissue exposed. The peripheral skin is hairless and atrophic. Wound Measurements and Assessment - Nurse 2 - General Ulcer CM Notes Start: 03/11/19 15:13 Freq: Status: Active Protocol: Activity Type Activity Date Activity User E-Sign Co-Sign Detail Recorded Client Recorded Date Recorded By Document 03/25/19 10:35 AN [id number] 03/25/19 10:38 AN 03/25/19 10:35 Wound Center Nurse 2 [Procedure/Treatment] #3 RIGHT LOWER LEG -Time 10:37 -Correct Patient Yes -Correct Side, Site, Position Yes -Correct Procedure Yes -Procedure Performed Yes -Type of Procedure Debridement -Clinical Debridement Subcutaneous -Post Debridement Size (cm) - Length 0.4 -Post Debridement Size (cm) - Width 0.2 -Post Debridement Size (cm) - Depth 0.1 -Total Square Cm 0.08 -Wound/Ulcer Outcome Not Healed -Ulcer Cleansing Rinsed/ Irrigated with Saline -Foul Odor after Cleansing No -Bioengineered Tissue No -Bleeding Controlled with Pressure -Offloading Yes -Treatment Response Procedure Tolerated Well [See Physician Procedure note for Specifics] Pain Scale: 0-10 Numeric [Pain] -Is Patient Pain Free? Yes Musculoskeletal: No Tenderness to Palpation of Joints or Extremities, Muscle Wasting, - - Right lower extremity dropfoot and ankle-foot orthotic is noted Lymphatic: - Neurological: Sensory exam intact to light touch and pain Psych/Mental Status: Normal Affect, Appropriate Debridement Note Post-Debridement Measurements/Treatment WC - Nurse 2 - General Ulcer CM Notes Start: 03/11/19 15:13 Freq: Status: Active Protocol: Activity Type Activity Date Activity User E-Sign Co-Sign Detail Recorded Client Recorded Date Recorded By Document 03/11/19 15:51 AN [id number] 03/11/19 15:51 AN Document 03/18/19 10:53 AN [id number] 03/18/19 10:53 AN Document 03/25/19 10:35 AN [id number] 03/25/19 10:38 AN 03/11/19 03/18/19 03/25/19 15:51 10:53 10:35 Wound Center Nurse 2 #3 RIGHT LOWER LEG -Time 10:37 -Correct Patient Yes -Correct Side, Site, Position Yes -Correct Procedure Yes -Procedure Performed Yes -Type of Procedure Debridement -Clinical Debridement Subcutaneous -Post Debridement Size (cm) - Length 0.4 -Post Debridement Size (cm) - Width 0.2 -Post Debridement Size (cm) - Depth 0.1 -Total Square Cm 0.08 -Wound/Ulcer Outcome Not Healed -Ulcer Cleansing Rinsed/ Irrigated with Saline -Foul Odor after Cleansing No -Bioengineered Tissue No -Bleeding Controlled with Pressure -Offloading Yes -Treatment Response Procedure Tolerated Well Pain Scale: 0-10 Numeric Is Patient Pain Free? Yes Yes Yes Wound debrided: lateral leg Laterality: Right Type of Debridement: Excisional debridement Anesthesia Used: 5% Lidocaine Gel Depth: in the subcutaneous layer Percentage of wound debrided: 100 Instrument Used: #15 blade Tissue Removed: fibrous, devitalized subcutaneous, biofilm, slough Severity: Fat Layer Exposed Amount of bleeding with debridement: Mild Bleeding Controlled with: Pressure Patient tolerated procedure well Assessment/Plan Active Problems (Last Reviewed 01/29/19 @ 16:53 by Faraz Connolly MD) Difficulty walking (Chronic) Other specified peripheral vascular diseases (Chronic) Delayed wound healing (Chronic) 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 Peripheral vascular disease. Leg edema and rule out venous insufficiency. Malnutrition. Recent tobacco use. Walking difficulty. Pain in right limb lower. Contraction right lower extremity at ankle level. Right dropfoot Plan: Patient was carefully examined and evaluated today. The etiology of his case and surgical indications were discussed today. The anticipated healing time was also discussed. He understands his comorbidities are contributing to delayed healing. He was reassured there are no signs of infection noted today. I reviewed and discussed his case. No exposed tendon is noted. He is reassured no local signs of infection exist today. Ulcer excision debridement with primary closure was performed 3 weeks ago and the site was kept intact. The sutures were removed today and gentle subcutaneous excisional debridement was performed. To change dressing daily with saline wet-to-dry gauze. To continue with Fady wrap. To continue to eat and take meal supplements as tolerated. [place] prescription was previously provided and he was advised on proper use. To keep pressure off this ulcer by avoiding lying on his right lateral leg. To reduce unnecessary pressure by wearing a light Tubigrip compression garment. To continue ankle-foot orthotic use for dropfoot. It is also noted he continues to smoke which significantly impairs wound healing. He understands it his responsibility to try to cut down to optimize his healing. He was offered smoking cessation. To return to clinic in 1 week or call sooner if there are any questions or concerns. I answered all his questions.
[2019-04-01 10:03] VITALS: BP 131/81; PULSE 83; RESP 16; TEMP 36.3; BMI 24.4
--- NOTE | 2019-04-01 11:43 | PCM.WC.PN ---
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 Status: Chronic Current Visit: Yes Code(s): L97.913 - Non-pressure chronic ulcer of unspecified part of right lower leg with necrosis of muscle (2) Difficulty walking Status: Chronic Current Visit: Yes Code(s): R26.2 - Difficulty in walking, not elsewhere classified (3) Pain in right lower leg Status: Resolved Current Visit: Yes Code(s): M79.661 - Pain in right lower leg (4) Other specified peripheral vascular diseases Status: Chronic Current Visit: Yes Code(s): I73.89 - Other specified peripheral vascular diseases (5) Delayed wound healing Status: Chronic Current Visit: Yes Code(s): T14.8XXD - Other injury of unspecified body region, subsequent encounter (6) Tobacco abuse Status: Chronic Current Visit: Yes Code(s): Z72.0 - Tobacco use Type of Wound Date of Service: 04/01/19 Chief Complaint: Leg ulcer right History of Wound: Mr. Choe is a 69 year old with past medical history of atrial fibrillation, peripheral arterial disease status post left lower extremity stenting and tobacco abuse presents for follow-up of right leg ulcer. He had a reported deep venous thrombosis of the right leg and developed subsequent compartment syndrome previously. He underwent surgical fasciotomy on July 07 at [facility] [place] and has a resultant chronic wound. He had a recent surgical debridement and serial application of advanced wound care product with delayed closure and application of wound VAC on 08/15/2018 and 08/19/2018, respectively. He also had a tendon debridement with versa jet application of amnio fill and epi cord again and application of sarah wound VAC. He had an excision of the remaining ulcer with primary closure with nylon sutures. He is kept the dressing intact. He continues to use his ankle-foot orthotic. He denies pain. He relates decreased and scant drainage. Progress of Wound: Improving - Physical Exam Vital Signs Temp Pulse Resp BP 97.3 F L 83 16 131/81 H 04/01/19 10:03 04/01/19 10:03 04/01/19 10:03 04/01/19 10:03 General: Alert, Oriented x3, Cooperative, No apparent distress Extremities: No cyanosis, Capillary Refill Less than 3 Seconds, No Calf Tenderness - Negative Yen and Watts sign, Diminished Peripheral Pulses, Edema - Mild Skin: Ulcer/ Wound - No purulence, erythema, streaking, odor, infection. The skin is hairless and atrophic. Wound Measurements and Assessment - Nurse 1 - General Ulcer Measurement Start: 03/11/19 15:13 Freq: Status: Active Protocol: Activity Type Activity Date Activity User E-Sign Co-Sign Detail Recorded Client Recorded Date Recorded By Document 04/01/19 10:03 [facility] [id number] 04/01/19 10:07 [facility] 04/01/19 10:03 Wound Center Nurse 1 [Ulcer Assessment] #3 RIGHT LOWER LEG -Combined with other wound No -Current Size (cm) - Length 0.5 -Current Size (cm) - Width 0.3 -Current Size (cm) - Depth 0.1 -Total Square Cm 0.15 -Photo Taken No -Epithelialization Small 1-33% -Tunneling No -Undermining/Tunneling No -Circular Undermining No -Exudate Amt Small -Exudate Type Serous -Wound Margin Thickened & Rolled Under -Granulation Amt None Present (0 %) -Slough/Fibrin Yes -Necrosis Amt Large (67-100%) -Necrotic Tissue Type Adherent Slough -Texture (Denisa-wound Skin Appearance) Assessed, Scarring -Moisture (Denisa-wound Skin Appearance Assessed ) -Color (Denisa-wound Skin Appearance) Assessed -Temperature (Denisa-wound Skin No Abnormality Appearance) (Pt Warm) -Tenderness on Palpation (Denisa-wound No Skin Appearance) -Ulcer Cleansing Rinsed/ Irrigated with Saline -Foul Odor after Cleansing No -Anesthetic Used 5% Lidocaine Gel - Nurse 2 - General Ulcer CM Notes Start: 03/11/19 15:13 Freq: Status: Active Protocol: Activity Type Activity Date Activity User E-Sign Co-Sign Detail Recorded Client Recorded Date Recorded By Document 04/01/19 10:16 AN [id number] 04/01/19 10:18 AN 04/01/19 10:16 Wound Center Nurse 2 [Procedure/Treatment] -Time 10:17 -Correct Patient Yes -Correct Side, Site, Position Yes -Correct Procedure Yes -Procedure Performed Yes -Type of Procedure Debridement -Clinical Debridement Subcutaneous -Post Debridement Size (cm) - Length 0.6 -Post Debridement Size (cm) - Width 0.4 -Post Debridement Size (cm) - Depth 0.1 -Total Square Cm 0.24 -Wound/Ulcer Outcome Not Healed -Ulcer Cleansing Rinsed/ Irrigated with Saline -Foul Odor after Cleansing No -Bioengineered Tissue No -Bleeding Controlled with Pressure -Offloading Yes -Treatment Response Procedure Tolerated Well [See Physician Procedure note for Specifics] Pain Scale: 0-10 Numeric [Pain] -Is Patient Pain Free? Yes Musculoskeletal: No Tenderness to Palpation of Joints or Extremities, Muscle Wasting, - - Reduced pain with also manipulation Neurological: Sensory exam intact to light touch and pain Psych/Mental Status: Normal Affect, Appropriate Debridement Note Post-Debridement Measurements/Treatment WC - Nurse 2 - General Ulcer CM Notes Start: 03/11/19 15:13 Freq: Status: Active Protocol: Activity Type Activity Date Activity User E-Sign Co-Sign Detail Recorded Client Recorded Date Recorded By Document 03/11/19 15:51 AN [id number] 03/11/19 15:51 AN Document 03/18/19 10:53 AN [id number] 03/18/19 10:53 AN Document 03/25/19 10:35 AN [id number] 03/25/19 10:38 AN Document 04/01/19 10:16 AN [id number] 04/01/19 10:18 AN 03/11/19 03/18/19 03/25/19 15:51 10:53 10:35 Wound Center Nurse 2 #3 RIGHT LOWER LEG -Time 10:37 -Correct Patient Yes -Correct Side, Site, Position Yes -Correct Procedure Yes -Procedure Performed Yes -Type of Procedure Debridement -Clinical Debridement Subcutaneous -Post Debridement Size (cm) - Length 0.4 -Post Debridement Size (cm) - Width 0.2 -Post Debridement Size (cm) - Depth 0.1 -Total Square Cm 0.08 -Wound/Ulcer Outcome Not Healed -Ulcer Cleansing Rinsed/ Irrigated with Saline -Foul Odor after Cleansing No -Bioengineered Tissue No -Bleeding Controlled with Pressure -Offloading Yes -Treatment Response Procedure Tolerated Well Pain Scale: 0-10 Numeric Is Patient Pain Free? Yes Yes Yes 04/01/19 10:16 Wound Center Nurse 2 #3 RIGHT LOWER LEG -Time 10:17 -Correct Patient Yes -Correct Side, Site, Position Yes -Correct Procedure Yes -Procedure Performed Yes -Type of Procedure Debridement -Clinical Debridement Subcutaneous -Post Debridement Size (cm) - Length 0.6 -Post Debridement Size (cm) - Width 0.4 -Post Debridement Size (cm) - Depth 0.1 -Total Square Cm 0.24 -Wound/Ulcer Outcome Not Healed -Ulcer Cleansing Rinsed/ Irrigated with Saline -Foul Odor after Cleansing No -Bioengineered Tissue No -Bleeding Controlled with Pressure -Offloading Yes -Treatment Response Procedure Tolerated Well Pain Scale: 0-10 Numeric Is Patient Pain Free? Yes Wound debrided: lateral leg Laterality: Right Type of Debridement: Excisional debridement Anesthesia Used: 5% Lidocaine Gel Depth: in the subcutaneous layer Percentage of wound debrided: 100 Instrument Used: #15 blade Tissue Removed: fibrous, devitalized subcutaneous, biofilm, slough Severity: Fat Layer Exposed Amount of bleeding with debridement: Mild Bleeding Controlled with: Pressure Patient tolerated procedure well Assessment/Plan Active Problems (Last Reviewed 01/29/19 @ 16:53 by Faraz Connolly MD) Difficulty walking (Chronic) Other specified peripheral vascular diseases (Chronic) Delayed wound healing (Chronic) 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 Peripheral vascular disease. Leg edema and rule out venous insufficiency. Malnutrition. Recent tobacco use. Walking difficulty. Pain in right limb lower. Contraction right lower extremity at ankle level. Right dropfoot Plan: Patient was carefully examined and evaluated today. The etiology of his case and surgical indications were discussed today. The anticipated healing time was also discussed. He understands his comorbidities are contributing to delayed healing. He was reassured there are no signs of infection noted today. I reviewed and discussed his case. No exposed tendon is noted. He is reassured no local signs of infection exist today. Ulcer excision debridement with primary closure was performed. Gentle subcutaneous excisional debridement was performed. To change dressing daily with saline wet-to-dry gauze. To continue with Fady wrap. To continue to eat and take meal supplements as tolerated. [place] prescription was previously provided and he was advised on proper use. To keep pressure off this ulcer by avoiding lying on his right lateral leg. To reduce unnecessary pressure by wearing a light Tubigrip compression garment. To continue ankle-foot orthotic use for dropfoot. It is also noted he continues to smoke which significantly impairs wound healing. He understands it his responsibility to try to cut down to optimize his healing. He was offered smoking cessation. To return to clinic in 1 week or call sooner if there are any questions or concerns. I answered all his questions.
[2019-04-08 10:01] VITALS: BP 157/83; PULSE 84; RESP 16; TEMP 36.4; BMI 24.4
--- NOTE | 2019-04-08 12:07 | PCM.WC.PN ---
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 Status: Chronic Code(s): L97.913 - Non-pressure chronic ulcer of unspecified part of right lower leg with necrosis of muscle (2) Difficulty walking Status: Chronic Code(s): R26.2 - Difficulty in walking, not elsewhere classified (3) Pain in right lower leg Status: Resolved Code(s): M79.661 - Pain in right lower leg (4) Other specified peripheral vascular diseases Status: Chronic Code(s): I73.89 - Other specified peripheral vascular diseases (5) Delayed wound healing Status: Chronic Code(s): T14.8XXD - Other injury of unspecified body region, subsequent encounter (6) Tobacco abuse Status: Chronic Code(s): Z72.0 - Tobacco use Type of Wound Date of Service: 04/08/19 Chief Complaint: Leg ulcer right History of Wound: Mr. Choe is a 69 year old with past medical history of atrial fibrillation, peripheral arterial disease status post left lower extremity stenting and tobacco abuse presents for follow-up of right leg ulcer. He had a reported deep venous thrombosis of the right leg and developed subsequent compartment syndrome previously. He underwent surgical fasciotomy on July 07 at [facility] and has a resultant chronic wound. He had a recent surgical debridement and serial application of advanced wound care product with delayed closure and application of wound VAC on 08/15/2018 and 08/19/2018, respectively. He also had a tendon debridement with versa jet application of amnio fill and epi cord again and application of sarah wound VAC. He had an excision of the remaining ulcer with primary closure with nylon sutures. He has been changing the dressing with saline wet-to-dry gauze as recommended. He continues to use his ankle-foot orthotic. He is interested in additional mobilization with wearing the cam walker for a couple of weeks and asks about this today. He denies pain. He relates scant drainage. He is with his daughter today. Progress of Wound: Improving - Physical Exam Vital Signs Temp Pulse Resp BP 97.5 F L 84 16 157/83 H 04/08/19 10:01 04/08/19 10:01 04/08/19 10:01 04/08/19 10:01 General: Alert, Oriented x3, Cooperative, No apparent distress Extremities: No cyanosis, Capillary Refill Less than 3 Seconds, No Calf Tenderness - Negative Yen and Watts sign right. Compartments are soft to palpate, Diminished Peripheral Pulses, Edema Skin: Ulcer/ Wound - No purulence, erythema, streaking, odor, infection. Peripheral skin is atrophic. There is no deep tissue exposed. The distalmost aspect of the ulcer remains open with only granulation tissue exposed. Wound Measurements and Assessment WC - Nurse 1 - General Ulcer Measurement Start: 03/11/19 15:13 Freq: Status: Active Protocol: Activity Type Activity Date Activity User E-Sign Co-Sign Detail Recorded Client Recorded Date Recorded By Document 04/08/19 10:01 [facility] [id number] 04/08/19 10:06 [facility] 04/08/19 10:01 Wound Center Nurse 1 [Ulcer Assessment] #3 RIGHT LOWER LEG -Combined with other wound No -Current Size (cm) - Length 0.4 -Current Size (cm) - Width 0.1 -Current Size (cm) - Depth 0.1 -Total Square Cm 0.04 -Photo Taken No -Epithelialization Small 1-33% -Tunneling No -Undermining/Tunneling No -Circular Undermining No -Exudate Amt Small -Exudate Type Serous -Wound Margin Thickened & Rolled Under -Granulation Amt None Present (0 %) -Slough/Fibrin Yes -Necrosis Amt Small (1-33%) -Necrotic Tissue Type Adherent Slough -Texture (Denisa-wound Skin Appearance) Assessed, Scarring -Moisture (Denisa-wound Skin Appearance Assessed ) -Color (Denisa-wound Skin Appearance) Assessed -Temperature (Denisa-wound Skin No Abnormality Appearance) (Pt Warm) -Tenderness on Palpation (Denisa-wound No Skin Appearance) -Ulcer Cleansing Rinsed/ Irrigated with Saline -Foul Odor after Cleansing No -Anesthetic Used 5% Lidocaine Gel Musculoskeletal: No Tenderness to Palpation of Joints or Extremities, Muscle Wasting, - - Dropfoot noted with ankle foot orthotic fits well Neurological: Sensory exam intact to light touch and pain Psych/Mental Status: Normal Affect, Appropriate Debridement Note Post-Debridement Measurements/Treatment WC - Nurse 2 - General Ulcer CM Notes Start: 03/11/19 15:13 Freq: Status: Active Protocol: Activity Type Activity Date Activity User E-Sign Co-Sign Detail Recorded Client Recorded Date Recorded By Document 03/11/19 15:51 AN [id number] 03/11/19 15:51 AN Document 03/18/19 10:53 AN [id number] 03/18/19 10:53 AN Document 03/25/19 10:35 AN [id number] 03/25/19 10:38 AN Document 04/01/19 10:16 AN [id number] 04/01/19 10:18 AN 03/11/19 03/18/19 03/25/19 15:51 10:53 10:35 Wound Center Nurse 2 #3 RIGHT LOWER LEG -Time 10:37 -Correct Patient Yes -Correct Side, Site, Position Yes -Correct Procedure Yes -Procedure Performed Yes -Type of Procedure Debridement -Clinical Debridement Subcutaneous -Post Debridement Size (cm) - Length 0.4 -Post Debridement Size (cm) - Width 0.2 -Post Debridement Size (cm) - Depth 0.1 -Total Square Cm 0.08 -Wound/Ulcer Outcome Not Healed -Ulcer Cleansing Rinsed/ Irrigated with Saline -Foul Odor after Cleansing No -Bioengineered Tissue No -Bleeding Controlled with Pressure -Offloading Yes -Treatment Response Procedure Tolerated Well Pain Scale: 0-10 Numeric Is Patient Pain Free? Yes Yes Yes 04/01/19 10:16 Wound Center Nurse 2 #3 RIGHT LOWER LEG -Time 10:17 -Correct Patient Yes -Correct Side, Site, Position Yes -Correct Procedure Yes -Procedure Performed Yes -Type of Procedure Debridement -Clinical Debridement Subcutaneous -Post Debridement Size (cm) - Length 0.6 -Post Debridement Size (cm) - Width 0.4 -Post Debridement Size (cm) - Depth 0.1 -Total Square Cm 0.24 -Wound/Ulcer Outcome Not Healed -Ulcer Cleansing Rinsed/ Irrigated with Saline -Foul Odor after Cleansing No -Bioengineered Tissue No -Bleeding Controlled with Pressure -Offloading Yes -Treatment Response Procedure Tolerated Well Pain Scale: 0-10 Numeric Is Patient Pain Free? Yes Wound debrided: lateral leg Laterality: Right Type of Debridement: Excisional debridement Anesthesia Used: 5% Lidocaine Gel Depth: in the subcutaneous layer Percentage of wound debrided: 100 Instrument Used: #15 blade Tissue Removed: fibrous, devitalized subcutaneous, biofilm, slough Severity: Fat Layer Exposed Amount of bleeding with debridement: Mild Bleeding Controlled with: Pressure Patient tolerated procedure well Assessment/Plan Assessment: Right leg ulcer with necrotic tendon (This is a chronic ulcer with an onset of June 2018) now with recent ulcer excision and primary closure. Peripheral vascular disease. Leg edema and rule out venous insufficiency. Malnutrition. Recent tobacco use. Walking difficulty. Pain in right limb lower. Contraction right lower extremity at ankle level. Right dropfoot Plan: Patient was carefully examined and evaluated today. The anticipated healing time was also discussed. He understands his comorbidities are contributing to delayed healing. He was reassured there are no signs of infection noted today and healing progress is noted. No exposed tendon is noted in his drainage is scant. He was reassured no local signs of infection exist today. Ulcer excision debridement with primary closure was performed in the recent clinical setting. Gentle subcutaneous excisional debridement was performed today to the remaining small portion of the ulcer site. To continue to change dressing daily with saline wet-to-dry gauze. To continue with Fady wrap. To continue to eat and take meal supplements as tolerated. [place] prescription was previously provided and he was advised on proper use. To keep pressure off this ulcer by avoiding lying on his right lateral leg. To reduce unnecessary pressure by wearing a light Tubigrip compression garment. To continue ankle-foot orthotic use for dropfoot. We also discussed using the CAM walker for more aggressive immobilization including the benefits of tension offloading versus risks of walking difficulty with this more restrictive device. He will proceed with the cam walker for a couple of weeks. It is also noted he continues to smoke which significantly impairs wound healing. He understands it his responsibility to try to cut down to optimize his healing. He was offered smoking cessation. To return to clinic in 1 week or call sooner if there are any questions or concerns. I answered all his questions.
== END 2019-04-09 23:59 ==
LOC: WC 10:00
PROVIDERS: Family Provider Family Medicine; PCP Family Medicine; Referring Provider Podiatrist; Visit Provider Podiatrist
DX: I73.89 Other specified peripheral vascular diseases (principal); R26.2 Difficulty in walking, not elsewhere classified; Z72.0 Tobacco use; I48.91 Unspecified atrial fibrillation; Z86.718 Personal history of other venous thrombosis and embolism; M21.371 Foot drop, right foot; L97.813 Non-pressure chronic ulcer of other part of right lower leg with necrosis of muscle
CPT/HCPCS: 11042; 99212; G0463

== ENCOUNTER 2019-04-15 08:35 | Outpatient (RCR) | payer MEDICARE, MEDICAID, SELFPAY ==
[2019-04-10 00:40] VITALS: BP 157/83; PULSE 84; RESP 16; TEMP 36.4
[2019-04-15 09:57] VITALS: BP 132/80; PULSE 82; RESP 16; TEMP 36.2; BMI 24.4
--- NOTE | 2019-04-15 11:04 | PCM.WC.PN ---
(1) Ulcer of right lower extremity with fat layer exposed Status: Chronic Current Visit: Yes Code(s): L97.912 - Non-pressure chronic ulcer of unspecified part of right lower leg with fat layer exposed (2) Foot drop, right Status: Chronic Current Visit: Yes Code(s): M21.371 - Foot drop, right foot (3) Difficulty walking Status: Chronic Current Visit: Yes Code(s): R26.2 - Difficulty in walking, not elsewhere classified (4) Delayed wound healing Status: Chronic Current Visit: Yes Code(s): T14.8XXD - Other injury of unspecified body region, subsequent encounter Type of Wound Date of Service: 04/15/19 Chief Complaint: Leg ulcer right History of Wound: Mr. Choe is a 69 year old with past medical history of atrial fibrillation, peripheral arterial disease status post left lower extremity stenting and tobacco abuse presents for follow-up of right leg ulcer. He had a reported deep venous thrombosis of the right leg and developed subsequent compartment syndrome previously. He underwent surgical fasciotomy on July 07 at [facility] and has a resultant chronic wound. He had a recent surgical debridement and serial application of advanced wound care product with delayed closure and application of wound VAC on 08/15/2018 and 08/19/2018, respectively. He also had a tendon debridement with versa jet application of amnio fill and epi cord again and application of sarah wound VAC. He had an excision of the remaining ulcer with primary closure with nylon sutures. He has been changing the dressing with saline wet-to-dry gauze as recommended. He continues to use his ankle-foot orthotic. He wears CAM Walker more last week and noticed some skin irritation in the front of his leg. He denies pain. He relates scant drainage. He is with his daughter today. He takes [place] supplementation. He relates he has not smoked for over a year. Progress of Wound: Improving - Physical Exam Vital Signs Temp Pulse Resp BP 97.1 F L 82 16 132/80 H 04/15/19 09:57 04/15/19 09:57 04/15/19 09:57 04/15/19 09:57 General: Alert, Oriented x3, Cooperative Extremities: No cyanosis, Capillary Refill Less than 3 Seconds, No Calf Tenderness, Diminished Peripheral Pulses Skin: Ulcer/ Wound - No purulence, erythema, string, odor, infection. Peripheral skin is atrophic Wound Measurements and Assessment - Nurse 1 - General Ulcer Measurement Start: 04/15/19 09:56 Freq: Status: Active Protocol: Activity Type Activity Date Activity User E-Sign Co-Sign Detail Recorded Client Recorded Date Recorded By Document 04/15/19 09:57 [facility] [id number] 04/15/19 10:00 [facility] 04/15/19 09:57 Wound Center Nurse 1 [Ulcer Assessment] #3 RIGHT LOWER LEG -Combined with other wound No -Current Size (cm) - Length 0.1 -Current Size (cm) - Width 0.1 -Current Size (cm) - Depth 0.1 -Total Square Cm 0.01 -Photo Taken No -Epithelialization Small 1-33% -Tunneling No -Undermining/Tunneling No -Circular Undermining No -Exudate Amt Small -Exudate Type Serous -Wound Margin Thickened & Rolled Under -Granulation Amt Small (1-33%) -Granulation Quality [place] -Slough/Fibrin No -Necrosis Amt None Present (0 %) -Texture (Denisa-wound Skin Appearance) Assessed, Scarring -Moisture (Denisa-wound Skin Appearance Assessed ) -Color (Denisa-wound Skin Appearance) Assessed -Temperature (Denisa-wound Skin No Abnormality Appearance) (Pt Warm) -Tenderness on Palpation (Denisa-wound No Skin Appearance) -Ulcer Cleansing Rinsed/ Irrigated with Saline -Foul Odor after Cleansing No -Anesthetic Used 5% Lidocaine Gel [Edema Assessment] -Lower Limb Edema Present No -Right Calf (cm) 33 -Right Ankle (cm) 19.6 - Nurse 2 - General Ulcer CM Notes Start: 04/15/19 09:56 Freq: Status: Active Protocol: Activity Type Activity Date Activity User E-Sign Co-Sign Detail Recorded Client Recorded Date Recorded By Document 04/15/19 10:40 [id number] 04/15/19 10:41 04/15/19 10:40 Wound Center Nurse 2 [Procedure/Treatment] #3 RIGHT LOWER LEG -Time 10:40 -Correct Patient Yes -Correct Side, Site, Position Yes -Correct Procedure Yes -Procedure Performed Yes -Type of Procedure Debridement -Clinical Debridement Subcutaneous -Post Debridement Size (cm) - Length 0.3 -Post Debridement Size (cm) - Width 0.2 -Post Debridement Size (cm) - Depth 0.3 -Total Square Cm 0.06 -Wound/Ulcer Outcome Not Healed -Ulcer Cleansing Rinsed/ Irrigated with Saline -Foul Odor after Cleansing No -Bioengineered Tissue No -Bleeding Controlled with Pressure -Offloading No -Treatment Response Procedure Tolerated Well [See Physician Procedure note for Specifics] Pain Scale: 0-10 Numeric [Pain] -Is Patient Pain Free? Yes Musculoskeletal: No Tenderness to Palpation of Joints or Extremities, Muscle Wasting Neurological: Sensory exam intact to light touch and pain Psych/Mental Status: Normal Affect, Appropriate Debridement Note Post-Debridement Measurements/Treatment WC - Nurse 2 - General Ulcer CM Notes Start: 04/15/19 09:56 Freq: Status: Active Protocol: Activity Type Activity Date Activity User E-Sign Co-Sign Detail Recorded Client Recorded Date Recorded By Document 04/15/19 10:40 BLANKA [id number] 04/15/19 10:41 BLANKA 04/15/19 10:40 Wound Center Nurse 2 #3 RIGHT LOWER LEG -Time 10:40 -Correct Patient Yes -Correct Side, Site, Position Yes -Correct Procedure Yes -Procedure Performed Yes -Type of Procedure Debridement -Clinical Debridement Subcutaneous -Post Debridement Size (cm) - Length 0.3 -Post Debridement Size (cm) - Width 0.2 -Post Debridement Size (cm) - Depth 0.3 -Total Square Cm 0.06 -Wound/Ulcer Outcome Not Healed -Ulcer Cleansing Rinsed/ Irrigated with Saline -Foul Odor after Cleansing No -Bioengineered Tissue No -Bleeding Controlled with Pressure -Offloading No -Treatment Response Procedure Tolerated Well Pain Scale: 0-10 Numeric Is Patient Pain Free? Yes Wound debrided: lateral leg Laterality: Right Type of Debridement: Excisional debridement Anesthesia Used: 5% Lidocaine Gel Depth: in the subcutaneous layer Percentage of wound debrided: 100 Instrument Used: #15 blade Tissue Removed: fibrous, devitalized subcutaneous, biofilm, slough Severity: Fat Layer Exposed Amount of bleeding with debridement: Mild Bleeding Controlled with: Pressure Patient tolerated procedure well Assessment/Plan Active Problems (Last Reviewed 01/29/19 @ 16:53 by Faraz Connolly MD) Ulcer of right lower extremity with fat layer exposed (Chronic) Foot drop, right (Chronic) Difficulty walking (Chronic) Delayed wound healing (Chronic) Assessment: Right leg ulcer with necrotic tendon (This is a chronic ulcer with an onset of June 2018) now with recent ulcer excision and primary closure. Peripheral vascular disease. Leg edema and rule out venous insufficiency. Malnutrition. Discontinued tobacco use. Walking difficulty. Pain in right limb lower. Contraction right lower extremity at ankle level. Right dropfoot Plan: Patient was carefully examined and evaluated today. The anticipated healing time was also discussed. He understands his comorbidities are contributing to delayed healing. He was reassured there are no signs of infection noted today and healing progress is noted. No exposed tendon is noted in his drainage is scant. He was reassured no local signs of infection exist today. Gentle subcutaneous excisional debridement was performed today to the remaining small portion of the ulcer site. To continue to change dressing daily with saline wet-to-dry gauze. To continue with Fady wrap. To continue to eat and take meal supplements as tolerated. [place] prescription was previously provided and he was advised on proper use. He can use [facility] nutrition supplementation as an alternative because the [place] is costly. To keep pressure off this ulcer by avoiding lying on his right lateral leg. To reduce unnecessary pressure by wearing a light Tubigrip compression garment. To continue ankle-foot orthotic use for dropfoot. Okay to discontinue CAM Walker on a daily basis due to other adjacent skin irritation. He denies current smoking activity and he is advised to continue with this. To return to clinic in 1 week or call sooner if there are any questions or concerns. I answered all his questions.
== END 2019-05-09 23:59 ==
LOC: WC 08:35
PROVIDERS: Family Provider Family Medicine; PCP Family Medicine; Referring Provider Podiatrist; Visit Provider Podiatrist
DX: I73.89 Other specified peripheral vascular diseases (principal); L97.812 Non-pressure chronic ulcer of other part of right lower leg with fat layer exposed; R26.2 Difficulty in walking, not elsewhere classified; M21.371 Foot drop, right foot; I48.91 Unspecified atrial fibrillation; Z72.0 Tobacco use; Z86.718 Personal history of other venous thrombosis and embolism; M79.609 Pain in unspecified limb
CPT/HCPCS: 11042

== ENCOUNTER 2019-05-13 09:19 | Outpatient (RCR) | payer MEDICARE, MEDICAID, SELFPAY ==
[2019-05-10 00:32] VITALS: BP 132/80; PULSE 82; RESP 16; TEMP 36.2
[2019-05-13 10:05] VITALS: BP 152/76; PULSE 81; RESP 20; TEMP 36.6; BMI 24.4
--- NOTE | 2019-05-13 14:02 | PN.PCM_ITS ---
(1) Ulcer of right lower extremity with fat layer exposed Status: Resolved Code(s): L97.912 - Non-pressure chronic ulcer of unspecified part of right lower leg with fat layer exposed (2) Foot drop, right Status: Chronic Code(s): M21.371 - Foot drop, right foot (3) Difficulty walking Status: Chronic Code(s): R26.2 - Difficulty in walking, not elsewhere classified Type of Wound Date of Service: 05/16/19 Chief Complaint: Leg ulcer right History of Wound: Mr. Choe is a 69 year old with past medical history of atrial fibrillation, peripheral arterial disease status post left lower extremity stenting and tobacco abuse presents for follow-up of right leg ulcer. He had a reported deep venous thrombosis of the right leg and developed subsequent compartment syndrome previously. He underwent surgical fasciotomy on July 07 at [facility] and has a resultant chronic wound. He had a recent surgical debridement and serial application of advanced wound care product with delayed closure and application of wound VAC on 08/15/2018 and 08/19/2018, respectively. He also had a tendon debridement with versa jet application of amnio fill and epi cord again and application of sarah wound VAC. He had an excision of the remaining ulcer with primary closure with nylon sutures. He has been changing the dressing with saline wet-to-dry gauze as recommended. He continues to use his ankle-foot orthotic. He denies pain. He relates scant drainage. He is with his daughter today. He takes [place] supplementation. He relates he has not smoked for over a year. He relates his ulcer site has not drained for about a week and he thinks it is healed today. Progress of Wound: Healed - Physical Exam Vital Signs Temp Pulse Resp BP 98 F 81 20 H 152/76 H 05/13/19 10:05 05/13/19 10:05 05/13/19 10:05 05/13/19 10:05 General: Alert, Oriented x3, Cooperative, No apparent distress Extremities: No cyanosis, Capillary Refill Less than 3 Seconds, No Calf Tend erness, Diminished Peripheral Pulses, Edema - Decreased Skin: Ulcer/ Wound - No purulence, erythema, streaking, odor, infection. There is full epithelialization noted to the right lateral leg and the site is healed today. The skin is atrophic and hairless Wound Measurements and Assessment WC - Nurse 1 - General Ulcer Measurement Start: 05/13/19 10:05 Freq: Status: Active Protocol: Activity Type Activity Date Activity User E-Sign Co-Sign Detail Recorded Client Recorded Date Recorded By Document 05/13/19 10:05 MAREK [id number] 05/13/19 10:09 MAREK 05/13/19 10:05 Wound Center Nurse 1 [Ulcer Assessment] #3 RIGHT LOWER LEG -Current Size (cm) - Length 0.1 -Current Size (cm) - Width 0.1 -Current Size (cm) - Depth 0.1 -Total Square Cm 0.01 -Exudate Amt None Present -Wound Margin Flat & Intact -Granulation Amt Large (67-100%) -Granulation Quality [place] -Necrosis Amt None Present (0 %) -Structure Exposed N/A -Texture (Denisa-wound Skin Appearance) Scarring -Moisture (Denisa-wound Skin Appearance No Abnormality ) -Color (Denisa-wound Skin Appearance) No Abnormality -Temperature (Denisa-wound Skin No Abnormality Appearance) (Pt Warm) -Tenderness on Palpation (Denisa-wound No Skin Appearance) -Ulcer Cleansing Rinsed/ Irrigated with Saline -Foul Odor after Cleansing No WC - Nurse 2 - General Ulcer CM Notes Start: 05/13/19 10:05 Freq: Status: Active Protocol: Activity Type Activity Date Activity User E-Sign Co-Sign Detail Recorded Client Recorded Date Recorded By Document 05/13/19 11:17 BLANKA [id number] 05/13/19 11:18 BLANKA 05/13/19 11:17 Wound Center Nurse 2 [Procedure/Treatment] -Correct Patient No -Correct Side, Site, Position No -Correct Procedure No -Procedure Performed No -Post Debridement Size (cm) - Length 0 -Post Debridement Size (cm) - Width 0 -Post Debridement Size (cm) - Depth 0 -Total Square Cm 0 -Wound/Ulcer Outcome Healed- Epithelialized [See Physician Procedure note for Specifics] Pain Scale: 0-10 Numeric [Pain] -Is Patient Pain Free? Yes Musculoskeletal: No Tenderness to Palpation of Joints or Extremities, Muscle Wasting Neurological: Sensory exam intact to light touch and pain Psych/Mental Status: Normal Affect, Appropriate Debridement Note Post-Debridement Measurements/Treatment WC - Nurse 2 - General Ulcer CM Notes Start: 05/13/19 10:05 Freq: Status: Active Protocol: Activity Type Activity Date Activity User E-Sign Co-Sign Detail Recorded Client Recorded Date Recorded By Document 05/13/19 11:17 BLANKA [id number] 05/13/19 11:18 BLANKA 05/13/19 11:17 Wound Center Nurse 2 #3 RIGHT LOWER LEG -Correct Patient No -Correct Side, Site, Position No -Correct Procedure No -Procedure Performed No -Post Debridement Size (cm) - Length 0 -Post Debridement Size (cm) - Width 0 -Post Debridement Size (cm) - Depth 0 -Total Square Cm 0 -Wound/Ulcer Outcome Healed- Epithelialized Pain Scale: 0-10 Numeric Is Patient Pain Free? Yes Wound debrided: leg Laterality: Right No debridement was completed today - healed today Assessment/Plan Assessment: Healed: Prior right leg ulcer with necrotic tendon (This is a chronic ulcer with an onset of June 2018) now with recent ulcer excision and primary closure. Peripheral vascular disease. Leg edema and rule out venous insufficiency. Malnutrition. Discontinued tobacco use. Walking difficulty. Pain in right limb lower. Contraction right lower extremity at ankle level. Right dropfoot Plan: Patient was carefully examined and evaluated today. He was reassured there are no signs of infection or open ulcer is noted today. He is clinically healed. He was advised to discontinue dressing care. To monitor and protect this site as the skin remodels over the next several months. To continue her ankle-foot orthotic brace to address his progressive dropfoot deformity. This appears to be fitting well. To maintain good hygiene and to moisturize the skin to keep the skin integrity intact. He is discharged at the wound healing center at this time and he is advised to return if an open lesion presents again or if he has any other foot or ankle concerns he will call the foot and ankle center. Answered his questions.
== END 2019-06-09 23:59 ==
LOC: WC 09:19
PROVIDERS: Family Provider Family Medicine; PCP Family Medicine; Referring Provider Podiatrist; Visit Provider Podiatrist
DX: Z09 Encounter for follow-up examination after completed treatment for conditions other than malignant neoplasm (principal); I73.9 Peripheral vascular disease, unspecified; R60.0 Localized edema; M79.604 Pain in right leg; M21.371 Foot drop, right foot
CPT/HCPCS: 99213; G0463

== ENCOUNTER → 2019-10-14 11:01 | Outpatient (CLI) | payer MEDICARE, MEDICAID, SELFPAY ==
[2019-10-14 10:06] VITALS: BMI 27.2
--- NOTE | 2019-10-14 11:09 | RAD_ITS ---
STUDY: X-RAY - RIGHT TIBIA AND FIBULA REASON FOR EXAM: Male, 69 years old. Lateral side leg ulcer, chronic TECHNIQUE: AP and lateral view(s) of the tibia and fibula were obtained. COMPARISON: None. FINDINGS: Normal visualized tibia. Normal visualized fibula. The soft tissue structures are unremarkable. RAD/Tibia & Fibula 2 Views IMPRESSION: Normal x-ray examination of the tibia and fibula. Electronically Signed: James Black, at 12:59 EDT , Service support ,
[2019-10-14 12:06] LABS: Absolute Neutrophil Count 3.5 X10^3/uL (2.0-7.7); Basophil# 0.04 X10^3/uL; Basophil% 0.6 % (0-1); Eosinophil# 0.17 X10^3/uL; Eosinophils% 2.5 % (0-5); Hematocrit 42.4 % (40-54); Lymphocyte % 31.2 % (19-41); Mean Corpuscular Hgb 28.2 pg (27.0-32.0); Mean Corpuscular Volume 85.3 fL (80-94); Mean Platelet Vol. 10.1 fl (6.2-12.0); Monocyte# 0.93 X10^3/uL; Monocyte% 13.8 % (0-10); NRBC Flagged by Analyzer 0 % (0-5); Neutrophil # 3.45 X10^3/uL (2.7-7.7); Neutrophil % 51.3 % (47-70); Platelet Count 240 K/mm3 (150-450); RBC Distribution Width CV 16.6 % (11.6-14.6); RBC Distribution Width SD 51.6 fl (35.1-43.9); Red Blood Count 4.97 M/mm3 (4.6-6.2); White Blood Count 6.7 K/mm3 (4.4-11.0)
[2019-10-14 12:28] LABS: ALB/GLOB Ratio 0.6 RATIO (0.9-2.4); AST(SGOT) 17 U/L (15-37); Alanine Aminotransfer ALT/SGPT 18 U/L (16-61); Albumin, Serum 3.2 g/dL (3.2-5.0); Alkaline Phosphatase 115 U/L (45-117); Anion Gap 8 (5-15); BUN 14 mg/dL (7-18); BUN/Creat Ratio 14.2 RATIO (10-20); Calcium,Total 9.3 mg/dL (8.5-10.1); Chloride 107 mmol/L (98-107); Creatinine, Serum 0.99 mg/dL (0.70-1.30); EST Glomerular Filtration Rate 80 mL/min (>60); Est Glom Filt Rate - Afr Amer 97 mL/min (>60); Glucose 93 mg/dL (74-106); Protein, Total 8.2 g/dL (6.4-8.2); Sodium Level 138 mmol/L (136-145)
[2019-10-14 12:30] LABS: Erythrocyte Sedimentation Rate 63 mm/hr (0-20)
== END ==
PROVIDERS: PCP Family Medicine; Referring Provider Podiatrist; Visit Provider Podiatrist
DX: L97.919 Non-pressure chronic ulcer of unspecified part of right lower leg with unspecified severity (principal)
CPT/HCPCS: 36415; 73590; 80053; 85025; 85652; 86140

== ENCOUNTER 2019-10-28 11:30 | Outpatient (RCR) | payer MEDICARE, MEDICAID, SELFPAY ==
[2019-06-10 00:28] VITALS: BP 152/76; PULSE 81; RESP 20; TEMP 36.6
[2019-10-14 10:06] VITALS: BP 140/82; PULSE 83; RESP 22; TEMP 36.6; BMI 27.2
--- NOTE | 2019-10-14 11:46 | PN.PCM_ITS ---
(1) Ulcer of right lower extremity with muscle involvement without evidence of necrosis Status: Acute Current Visit: Yes Code(s): L97.915 - Non-pressure chronic ulcer of unspecified part of right lower leg with muscle involvement without evidence of necrosis (2) Colonization status Status: Suspected Current Visit: Yes Code(s): Z22.9 - Carrier of infectious disease, unspecified (3) Foot drop, right Status: Chronic Current Visit: Yes Code(s): M21.371 - Foot drop, right foot (4) Difficulty walking Status: Chronic Current Visit: Yes Code(s): R26.2 - Difficulty in walking, not elsewhere classified (5) Pain in right lower leg Status: Resolved Current Visit: Yes Code(s): M79.661 - Pain in right lower leg (6) Other specified peripheral vascular diseases Status: Chronic Current Visit: Yes Code(s): I73.89 - Other specified peripheral vascular diseases Type of Wound Date of Service: 10/14/19 Chief Complaint: Leg ulcer right History of Wound: Mr. Choe is a 69 year old with past medical history of atrial fibrillation, peripheral arterial disease status post left lower extremity stenting and tobacco abuse presents for follow-up of right leg ulcer. He had a reported deep venous thrombosis of the right leg and developed subsequent compartment syndrome previously. He underwent surgical fasciotomy on July 07 at [facility] and has a resultant chronic wound. He had a recent surgical debridement and serial application of advanced wound care product with delayed closure and application of wound VAC on 08/15/2018 and 08/19/2018, respectively. He also had a tendon debridement with versa jet application of amnio fill and epi cord again and application of sarah wound VAC. He had an excision of the remaining ulcer with primary closure with nylon sutures. He has been changing the dressing with saline wet-to-dry gauze as recommended. He continues to use his ankle-foot orthotic this past week and reports not wearing it prior to that. He denies pain. He relates increased drainage. He is with his daughter today. There is ulcer site has returned within the past 2 weeks. He was referred back to the wound healing center from the foot and ankle center. He denies odor or redness. He relates he did not follow-up as advised with vascular surgery. He had a procedure performed last year and relates he was supposed to get updated testing. Progress of Wound: Return right leg ulcer - Physical Exam Vital Signs Temp Pulse Resp BP 98 F 83 22 H 140/82 H 10/14/19 10:06 10/14/19 10:06 10/14/19 10:06 10/14/19 10:06 General: Alert, Oriented x3, Cooperative, No apparent distress Extremities: No cyanosis, Capillary Refill Less than 3 Seconds, No Calf Tenderness, Diminished Peripheral Pulses, Edema Skin: Ulcer/ Wound - No purulence, erythema, streaking, odor, infection. The skin is atrophic and hairless. The ulcer bed is deep there is no visualized bone or probe to bone. There is deep fascial and muscle tissue exposed Wound Measurements and Assessment WC - Nurse 1 - General Ulcer Measurement Start: 10/14/19 10:06 Freq: Status: Active Protocol: Activity Type Activity Date Activity User E-Sign Co-Sign Detail Recorded Client Recorded Date Recorded By Document 10/14/19 10:06 DL [id number] 10/14/19 10:14 DL 10/14/19 10:06 Wound Center Nurse 1 [Ulcer Assessment] #4 R Lat Lower Leg -Current Size (cm) - Length 2 -Current Size (cm) - Width 0.6 -Current Size (cm) - Depth 0.5 -Total Square Cm 1.2 -Photo Taken Yes -Classification - Thickness Full Thickness without Exposed Support Structure -Exudate Amt Small -Exudate Type Serosanguineous -Wound Margin Distinct, Outline Attached -Granulation Amt Small (1-33%) -Granulation Quality [place] -Necrosis Amt Large (67-100%) -Necrotic Tissue Type Adherent Slough -Texture (Denisa-wound Skin Appearance) Localized Edema ,Scarring -Moisture (Denisa-wound Skin Appearance No Abnormality ) -Color (Denisa-wound Skin Appearance) Erythema -Temperature (Denisa-wound Skin No Abnormality Appearance) (Pt Warm) -Tenderness on Palpation (Denisa-wound No Skin Appearance) -Ulcer Cleansing Wound Cleanser -Foul Odor after Cleansing No -Anesthetic Used 4% Lidocaine Solution WC - Nurse 2 - General Ulcer CM Notes Start: 10/14/19 10:06 Freq: Status: Active Protocol: Activity Type Activity Date Activity User E-Sign Co-Sign Detail Recorded Client Recorded Date Recorded By Document 10/14/19 10:32 DL [id number] 10/14/19 10:34 DL 10/14/19 10:32 Wound Center Nurse 2 [Procedure/Treatment] -Time 10:33 -Correct Patient Yes -Correct Side, Site, Position Yes -Correct Procedure Yes -Procedure Performed Yes -Type of Procedure Debridement -Clinical Debridement Subcutaneous -Post Debridement Size (cm) - Length 2.1 -Post Debridement Size (cm) - Width 0.6 -Post Debridement Size (cm) - Depth 1.1 -Total Square Cm 1.26 -Wound/Ulcer Outcome Not Healed -Ulcer Cleansing Rinsed/ Irrigated with Saline -Foul Odor after Cleansing No -Bioengineered Tissue No -Bleeding Controlled with Pressure -Offloading Yes -Type of Offloading Camwalker -Treatment Response Procedure Tolerated Well [See Physician Procedure note for Specifics] Pain Scale: 0-10 Numeric [Pain] -Is Patient Pain Free? Yes Debridement Note Post-Debridement Measurements/Treatment WC - Nurse 2 - General Ulcer CM Notes Start: 10/14/19 10:06 Freq: Status: Active Protocol: Activity Type Activity Date Activity User E-Sign Co-Sign Detail Recorded Client Recorded Date Recorded By Document 10/14/19 10:32 DL [id number] 10/14/19 10:34 DL 10/14/19 10:32 Wound Center Nurse 2 #4 R Lat Lower Leg -Time 10:33 -Correct Patient Yes -Correct Side, Site, Position Yes -Correct Procedure Yes -Procedure Performed Yes -Type of Procedure Debridement -Clinical Debridement Subcutaneous -Post Debridement Size (cm) - Length 2.1 -Post Debridement Size (cm) - Width 0.6 -Post Debridement Size (cm) - Depth 1.1 -Total Square Cm 1.26 -Wound/Ulcer Outcome Not Healed -Ulcer Cleansing Rinsed/ Irrigated with Saline -Foul Odor after Cleansing No -Bioengineered Tissue No -Bleeding Controlled with Pressure -Offloading Yes -Type of Offloading Camwalker -Treatment Response Procedure Tolerated Well Pain Scale: 0-10 Numeric Is Patient Pain Free? Yes Wound debrided: leg Laterality: Right Type of Debridement: Excisional debridement Anesthesia Used: 5% Lidocaine Gel Depth: in the subcutaneous layer Percentage of wound debrided: 100 Instrument Used: #15 blade Tissue Removed: fibrous, devitalized subcutaneous, biofilm, slough Severity: Fat Layer Exposed Amount of bleeding with debridement: Mild Bleeding Controlled with: Pressure Patient tolerated procedure well Assessment/Plan Active Problems (Last Reviewed 01/29/19 @ 16:[address] Faraz Connolly MD) Ulcer of right lower extremity with fat layer exposed (Chronic) Ulcer of right lower extremity with muscle involvement without evidence of necrosis (Acute) Foot drop, right (Chronic) Difficulty walking (Chronic) Other specified peripheral vascular diseases (Chronic) Assessment: Return: Prior right leg ulcer with muscle exposed (This is a chronic ulcer with an onset of June 2018). Peripheral vascular disease. Leg edema and rule out venous insufficiency. Malnutrition. Discontinued tobacco use. Walking difficulty. Pain in right limb lower. Contraction right lower extremity at ankle level. Right dropfoot Plan: Patient was carefully examined and evaluated today. He was reassured there are no signs of infection or open ulcer is noted today that has recently returned. There are no overt signs of local or systemic infection however I am concerned about the recent reopening anteriorization status. A culture for aerobic, anaerobic, and MRSA PCR was obtained to see if there is any bacterial contamination which may be contributing here. I recommended wearing light compression to help control localized edema with a single layer Tubigrip. It is noted he has an extensive history of peripheral vascular disease and he missed his follow-up appointment. I advised him to back in contact with his vascular surgeon to follow-up for reevaluation and potential testing. He was advised to strictly immobilize his limb. He has not been able to wear his ankle-foot orthotic in a meaningful manner due to compliance. Advised him to get into his cam walker which will mobilize him even more and compliance was discussed today. To resume nutritional supplementation. To change daily with [place]. The ulcer was debrided as noted in the clinical panel. To return to the wound healing center in 1 week. Answered all his questions. ---. 2020 macra update. Medication list and allergy list were reconciled and confirmed today.
[2019-10-14 14:58] LABS: M R Staph aureus DNA By PCR Negative (Negative); Probe Check PASS; Specimen Processing Control PASS; Staph aureus DNA By PCR NEGATIVE (Negative)
[2019-10-21 11:31] VITALS: BP 147/76; PULSE 69; RESP 20; TEMP 36.8; BMI 27.2
--- NOTE | 2019-10-21 22:41 | PN.PCM_ITS ---
(1) Ulcer of right lower extremity with muscle involvement without evidence of necrosis Status: Acute Current Visit: Yes Code(s): L97.915 - Non-pressure chronic ulcer of unspecified part of right lower leg with muscle involvement without evidence of necrosis (2) Colonization status Status: Suspected Current Visit: Yes Code(s): Z22.9 - Carrier of infectious disease, unspecified (3) Foot drop, right Status: Chronic Current Visit: Yes Code(s): M21.371 - Foot drop, right foot (4) Difficulty walking Status: Chronic Current Visit: Yes Code(s): R26.2 - Difficulty in walking, not elsewhere classified (5) Pain in right lower leg Status: Resolved Current Visit: Yes Code(s): M79.661 - Pain in right lower leg (6) Other specified peripheral vascular diseases Status: Chronic Current Visit: Yes Code(s): I73.89 - Other specified peripheral vascular diseases Type of Wound Date of Service: 10/21/19 Chief Complaint: Leg ulcer right History of Wound: Mr. Choe is a 69 year old with past medical history of atrial fibrillation, peripheral arterial disease status post left lower extremity stenting and tobacco abuse presents for follow-up of right leg ulcer. This is an ulcer recurrence. It is noted that he had a blood clot with subsequent fasciotomy delayed healing and other wound debridement and delayed primary closure was performed in 2019 at the same site. He has been watching with medical grade Siria-Hex soap since it has been identified that he has corynebacterium growth in his ulcer wound bed. He has an appointment scheduled to follow-up with vascular surgery within the next 2 weeks. He relates he is not able to wear his cam walker boot because the strap is rubbing directly over the site. He does still have his ankle-foot orthotic that he can wear. He is with his daughter today. Progress of Wound: Return right leg ulcer - Physical Exam Vital Signs Temp Pulse Resp BP 98.2 F 69 20 H 147/76 H 10/21/19 11:31 10/21/19 11:31 10/21/19 11:31 10/21/19 11:31 General: Alert, Oriented x3, Cooperative, No apparent distress HEENT: Atraumatic Extremities: No cyanosis, Capillary Refill Less than 3 Seconds, No Calf Tenderness, Diminished Peripheral Pulses, Edema Skin: Ulcer/ Wound - no purulence, no erythema, no streaking, no odor right leg. ulcer is deteriorating with increased fibrous tissue, drainage, and increased si ze. The adjacent skin is hairless and atrophic. Wound Measurements and Assessment WC - Nurse 1 - General Ulcer Measurement Start: 10/14/19 10:06 Freq: Status: Active Protocol: Activity Type Activity Date Activity User E-Sign Co-Sign Detail Recorded Client Recorded Date Recorded By Document 10/21/19 11:31 DL [id number] 10/21/19 11:39 DL 10/21/19 11:31 Wound Center Nurse 1 [Ulcer Assessment] #4 R Lat Lower Leg -Current Size (cm) - Length 3 -Current Size (cm) - Width 0.7 -Current Size (cm) - Depth 0.5 -Total Square Cm 2.1 -Photo Taken No -Exudate Amt Medium -Exudate Type Serosanguineous -Wound Margin Distinct, Outline Attached -Granulation Amt None Present (0 %) -Necrosis Amt Large (67-100%) -Necrotic Tissue Type Adherent Slough -Structure Exposed N/A -Texture (Denisa-wound Skin Appearance) Scarring -Moisture (Denisa-wound Skin Appearance Dry/Scaly ) -Color (Denisa-wound Skin Appearance) Rubor -Temperature (Denisa-wound Skin No Abnormality Appearance) (Pt Warm) -Tenderness on Palpation (Denisa-wound No Skin Appearance) -Ulcer Cleansing Rinsed/ Irrigated with Saline -Foul Odor after Cleansing No -Anesthetic Used 4% Lidocaine Solution Musculoskeletal: No Tenderness to Palpation of Joints or Extremities, Muscle Wasting, - - Active range of motion is limited consistent with his developed dropfoot. His partial active range of motion of sagittal plane causes overt tension on the ulcer margins Neurological: Sensory exam intact to light touch and pain Psych/Mental Status: Normal Affect, Appropriate Debridement Note Post-Debridement Measurements/Treatment WC - Nurse 2 - General Ulcer CM Notes Start: 10/14/19 10:06 Freq: Status: Active Protocol: Activity Type Activity Date Activity User E-Sign Co-Sign Detail Recorded Client Recorded Date Recorded By Document 10/14/19 10:32 DL [id number] 10/14/19 10:34 DL 10/14/19 10:32 Wound Center Nurse 2 #4 R Lat Lower Leg -Time 10:33 -Correct Patient Yes -Correct Side, Site, Position Yes -Correct Procedure Yes -Procedure Performed Yes -Type of Procedure Debridement -Clinical Debridement Subcutaneous -Post Debridement Size (cm) - Length 2.1 -Post Debridement Size (cm) - Width 0.6 -Post Debridement Size (cm) - Depth 1.1 -Total Square Cm 1.26 -Wound/Ulcer Outcome Not Healed -Ulcer Cleansing Rinsed/ Irrigated with Saline -Foul Odor after Cleansing No -Bioengineered Tissue No -Bleeding Controlled with Pressure -Offloading Yes -Type of Offloading Camwalker -Treatment Response Procedure Tolerated Well Pain Scale: 0-10 Numeric Is Patient Pain Free? Yes Wound debrided: leg Laterality: Right Type of Debridement: Excisional debridement Anesthesia Used: 5% Lidocaine Gel Depth: in the subcutaneous layer Percentage of wound debrided: 100 Instrument Used: #15 blade Tissue Removed: fibrous, devitalized subcutaneous, biofilm, slough Severity: Fat Layer Exposed Amount of bleeding with debridement: Mild Bleeding Controlled with: Pressure Patient tolerated procedure well Assessment/Plan Active Problems (Last Reviewed 01/29/19 @ 16:[address] Faraz Connolly MD) Ulcer of right lower extremity with fat layer exposed (Chronic) Ulcer of right lower extremity with muscle involvement without evidence of necrosis (Acute) Foot drop, right (Chronic) Difficulty walking (Chronic) Other specified peripheral vascular diseases (Chronic) Assessment: Return: Prior right leg ulcer with muscle exposed (This is a chronic ulcer with an onset of June 2018). Corynebacterium stratum contamination. Peripheral vascular disease. Leg edema and rule out venous insufficiency. Malnutrition. Discontinued tobacco use. Walking difficulty. Pain in right limb lower. Contraction right lower extremity at ankle level. Right dropfoot Plan: Patient was carefully examined and evaluated today. He was reassured there are no signs of infection or open ulcer is noted today that has recently returned. There are no overt signs of local or systemic infection however I am concerned about the recent reopening deteriorization status. A culture for aerobic, anaerobic, and MRSA PCR was obtained to see if there is any bacterial contamination which may be contributing here. He had corynebacterium stratum growth and he was contacted over the weekend and advised to wash with medical grade Siria-Hex antimicrobial soap. He started this and this is going well. I also put him on an oral antibiotic, Augmentin 875 mg tablets twice daily. I rec ommended wearing light compression to help control localized edema with a single layer Tubigrip. It is noted he has an extensive history of peripheral vascular disease and he missed his follow-up appointment. I advised him to back in contact with his vascular surgeon to follow-up for reevaluation and potential testing. He was advised to strictly immobilize his limb. Advised him to get into his cam walker which will mobilize him even more and compliance was discussed today. He reports the strap rubs directly on this site. As an alternative I recommended he tries to wear his ankle-foot orthotic and compliance is necessary. I have asked him to bring his cam walker boot to consider strap modification next week. To resume nutritional supplementation. To discontinue Park use. I recommend changing dressing with saline wet-to-dry with gauze to help with serial debridements over the course of the next week. The ulcer was debrided as noted in the clinical panel. Home health options will be pursued. To return to the wound healing center in 1 week. Answered all his questions. ---. 2019 macra update. Medication list and allergy list were reconciled and confirmed today.
[2019-10-28 11:31] VITALS: BP 150/64; PULSE 73; RESP 22; TEMP 36.3; BMI 27.2
--- NOTE | 2019-10-28 12:57 | PN.PCM_ITS ---
(1) Ulcer of right lower extremity with muscle involvement without evidence of necrosis Status: Acute Code(s): L97.915 - Non-pressure chronic ulcer of unspecified part of right lower leg with muscle involvement without evidence of necrosis (2) Colonization status Status: Suspected Code(s): Z22.9 - Carrier of infectious disease, unspecified (3) Foot drop, right Status: Chronic Code(s): M21.371 - Foot drop, right foot (4) Difficulty walking Status: Chronic Code(s): R26.2 - Difficulty in walking, not elsewhere cl assified (5) Pain in right lower leg Status: Resolved Code(s): M79.661 - Pain in right lower leg (6) Other specified peripheral vascular diseases Status: Chronic Code(s): I73.89 - Other specified peripheral vascular diseases Type of Wound Date of Service: 10/28/19 Chief Complaint: Leg ulcer right History of Wound: Mr. Choe is a 69 year old with past medical history of atrial fibrillation, peripheral arterial disease status post left lower extremity stenting and tobacco abuse presents for follow-up of right leg ulcer. This is an ulcer recurrence. It is noted that he had a blood clot with subsequent fasciotomy delayed healing and other wound debridement and delayed primary closure was performed in 2019 at the same site. He has been washing with medical grade Siria-Hex soap since it has been identified that he has corynebacterium growth in his ulcer wound bed. He has an appointment scheduled to follow-up with vascular surgery next week. He relates he is not able to wear his cam walker boot because the strap is rubbing directly over the site. He does still have his ankle-foot orthotic that he can wear. He relates he has been compliant with this this past week. He is with his daughter today. He relates his leg feels better when he dangles it. Progress of Wound: Stable - Physical Exam Vital Signs Temp Pulse Resp BP 97.3 F L 73 22 H 150/64 H 10/28/19 11:31 10/28/19 11:31 10/28/19 11:31 10/28/19 11:31 General: Alert, Oriented x3, Cooperative, No apparent distress HEENT: Atraumatic Extremities: No cyanosis, Capillary Refill Less than 3 Seconds, No Calf Tenderness, Diminished Peripheral Pulses, Edema, - - Toes are warm to touch. The pulses are nonpalpable. The skin is hairless and atrophic and thin. Skin: Ulcer/ Wound - There is no purulence, erythema, streaking, odor, infection. There is no probe directly to bone. There is probe to the deep fascial compartment and the ulcer does not appear to be improving compared to last week Wound Measurements and Assessment WC - Nurse 1 - General Ulcer Measurement Start: 10/14/19 10:06 Freq: Status: Active Protocol: Activity Type Activity Date Activity User E-Sign Co-Sign Detail Recorded Client Recorded Date Recorded By Document 10/28/19 11:31 DL [id number] 10/28/19 11:37 DL 10/28/19 11:31 Wound Center Nurse 1 [Ulcer Assessment] #4 R Lat Lower Leg -Current Size (cm) - Length 3.5 -Current Size (cm) - Width 0.5 -Current Size (cm) - Depth 0.5 -Total Square Cm 1.75 -Photo Taken No -Exudate Amt Small -Exudate Type Yellow/Green -Wound Margin Thickened -Granulation Amt None Present (0 %) -Necrosis Amt Large (67-100%) -Necrotic Tissue Type Adherent Slough -Structure Exposed N/A -Texture (Denisa-wound Skin Appearance) Scarring -Moisture (Denisa-wound Skin Appearance No Abnormality ) -Color (Denisa-wound Skin Appearance) Erythema,Rubor -Temperature (Denisa-wound Skin No Abnormality Appearance) (Pt Warm) -Tenderness on Palpation (Denisa-wound Yes Skin Appearance) -Ulcer Cleansing Wound Cleanser -Foul Odor after Cleansing No -Anesthetic Used 4% Lidocaine Solution,5% Lidocaine Gel Musculoskeletal: No Tenderness to Palpation of Joints or Extremities, Muscle Wasting, - - Dorsiflexion and plantarflexion of the foot does put visualized tension on the ulcer bed Neurological: Sensory exam intact to light touch and pain Psych/Mental Status: Normal Affect, Appropriate Debridement Note Post-Debridement Measurements/Treatment WC - Nurse 2 - General Ulcer CM Notes Start: 10/14/19 10:06 Freq: Status: Active Protocol: Activity Type Activity Date Activity User E-Sign Co-Sign Detail Recorded Client Recorded Date Recorded By Document 10/14/19 10:32 DL [id number] 10/14/19 10:34 DL 10/14/19 10:32 Wound Center Nurse 2 #4 R Lat Lower Leg -Time 10:33 -Correct Patient Yes -Correct Side, Site, Position Yes -Correct Procedure Yes -Procedure Performed Yes -Type of Procedure Debridement -Clinical Debridement Subcutaneous -Post Debridement Size (cm) - Length 2.1 -Post Debridement Size (cm) - Width 0.6 -Post Debridement Size (cm) - Depth 1.1 -Total Square Cm 1.26 -Wound/Ulcer Outcome Not Healed -Ulcer Cleansing Rinsed/ Irrigated with Saline -Foul Odor after Cleansing No -Bioengineered Tissue No -Bleeding Controlled with Pressure -Offloading Yes -Type of Offloading Camwalker -Treatment Response Procedure Tolerated Well Pain Scale: 0-10 Numeric Is Patient Pain Free? Yes Wound debrided: anterior leg Laterality: Right Type of Debridement: Excisional debridement Anesthesia Used: 5% Lidocaine Gel Depth: in the subcutaneous layer Percentage of wound debrided: 100 Instrument Used: #15 blade Tissue Removed: fibrous, devitalized subcutaneous, biofilm, slough Severity: Fat Layer Exposed Amount of bleeding with debridement: Mild Bleeding Controlled with: Pressure Patient tolerated procedure well Assessment/Plan Assessment: Return: Prior right leg ulcer with muscle exposed (This is a chronic ulcer with an onset of June 2018). Corynebacterium stratum contamination. Peripheral vascular disease. Leg edema and rule out venous insufficiency. M alnutrition. Discontinued tobacco use. Walking difficulty. Pain in right limb lower. Contraction right lower extremity at ankle level. Right dropfoot Plan: Patient was carefully examined and evaluated today. He was reassured there are no signs of infection or open ulcer is noted today that has recently returned. There are no overt signs of local or systemic infection however I am concerned about the recent reopening deteriorization status. A culture for aerobic, anaerobic, and MRSA PCR was obtained to see if there is any bacterial contamination which may be contributing here. He had corynebacterium stratum growth and he was contacted previously and advised to wash with medical grade Siria-Hex antimicrobial soap. He started this and this is going well. I also put him on an oral antibiotic, Augmentin 875 mg tablets twice daily. To complete; he denies side effects. I recommended wearing light compression to help control localized edema with a single layer Tubigrip. It is noted he has an extensive history of peripheral vascular disease and he missed his follow-up appointment. He was advised to intermittently dangle the leg to improve arterial perfusion and this seems to also reduce his pain. I advised him to back in contact with his vascular surgeon to follow-up for reevaluation and potential testing. He was advised to strictly immobilize his limb. Advised him to get into his cam walker which will mobilize him even more and compliance was discussed today. He reports the strap rubs directly on this site. As an alternative I recommended he tries to wear his ankle-foot orthotic and compliance is necessary. To resume nutritional supplementation. To discontinue Park use. I recommend changing dressing with saline wet-to-dry with gauze to help with serial debridements over the course of the next week. The ulcer was debrided as noted in the clinical panel. Home health options will be pursued. To return to the wound healing center in 1 week. Answered all his questions. ---. 2019 macra update. Medication list and allergy list were reconciled and confirmed today.
== END 2019-11-08 23:59 ==
LOC: WC 11:30
PROVIDERS: Family Provider Family Medicine; PCP Family Medicine; Referring Provider Podiatrist; Visit Provider Podiatrist
DX: L97.915 Non-pressure chronic ulcer of unspecified part of right lower leg with muscle involvement without evidence of necrosis (principal); I73.9 Peripheral vascular disease, unspecified; M21.371 Foot drop, right foot; R26.2 Difficulty in walking, not elsewhere classified
CPT/HCPCS: 11042; 87070; 87075; 87077; 87205; 87640; 97597; 99213; G0463

== ENCOUNTER → 2019-10-29 13:04 | Outpatient (CLI) | payer MEDICARE, MEDICAID, SELFPAY ==
[2019-10-14 10:06] VITALS: BMI 27.2
[2019-10-28 11:31] VITALS: BMI 27.2
--- NOTE | 2019-10-29 13:08 | ART_ITS ---
Reason For Study: Atherosclerosis Procedure A bilateral lower extremity continuous wave Doppler with analog waveform analysis and ankle brachial indexes. Left Segmental Pressures Left brachial= 142mmHg. Left posterior tibial artery = 93mmHg. Left dorsalis pedis artery = 93mmHg. Left digit = 48 mmHg. The left dorsalis pedis waveforms are monophasic. The left posterior tibial artery waveforms are monophasic. Right Segmental Pressures Right brachial= 146mmHg. Right posterior tibial artery = 53mmHg. Right dorsalis pedis artery = 72mmHg. The right dorsalis pedis waveforms are monophasic. The right posterior tibial artery waveforms are monophasic. Indices The right ankle brachial index by the dorsalis pedis is 0.49. The right ankle brachial index by the posterior tibial artery is 0.36. The left ankle brachial index by the dorsalis pedis is 0.64. The left ankle brachial index by the posterior tibial artery is 0.64. The left digital-brachial index is 0.33. Interpretation Summary Bilateral monophasic flow and BRANDON 0.49 and 0.64. Ordering Physician: Scot Yarbrough Referring Physician: Joe Blacno Performed By: Thelma Alfonso RVT
--- NOTE | 2019-10-29 13:08 | ADUL_ITS ---
Reason For Study: Atherosclerosis Right Velocities Ext. Iliac Artery, dist = 101.2 cm./sec. Common Femoral Artery, mid = 72.3 cm./sec. Supf Femoral Artery, prox = 69.5 cm./sec. SFA Stent Prox, 195.7 cm/sec SFA Stent Mid, 35.4 cm/sec SFA Stent Distal, 71.2 cm/sec. Supf Femoral Artery, mid = 31.1 cm./sec. Profunda Femoral Artery = 199.2 cm./sec. No flow noted distal SFA and Kaylah Prox. No flow noted peroneal artery. Popliteal Artery, mid = 12.9 cm./sec. Popliteal Artery, dist = 9.9 cm./sec. Post. Tibial Artery, prox = 15.4 cm./sec. Post. Tibial Artery, mid = 19.9 cm./sec. Post. Tibial Artery, dist = 17.4 cm./sec. Ant. Tibial Artery, prox = 60.9 cm./sec. Ant. Tibial Artery, mid = 16.4 cm./sec. Ant. Tibial Artery, dist = 4.9 cm./sec. Procedure Exam performed in department. Prelim to [place]. Interpretation Summary Distal femoral, popliteal and peroneal arteries occluded on right leg. Ordering Physician: Scot Yarbrough Referring Physician: Joe Blanco Performed By: Thelma Alfonso RVT
== END ==
PROVIDERS: PCP Family Medicine; Referring Provider Surgery Vascular Surgery; Visit Provider Surgery Vascular Surgery
DX: I70.213 Atherosclerosis of native arteries of extremities with intermittent claudication, bilateral legs (principal); K21.9 Gastro-esophageal reflux disease without esophagitis; M19.90 Unspecified osteoarthritis, unspecified site; Z48.812 Encounter for surgical aftercare following surgery on the circulatory system
CPT/HCPCS: 93922; 93926

== ENCOUNTER 2019-12-02 11:45 | Outpatient (RCR) | payer MEDICARE, MEDICAID, SELFPAY ==
[2019-11-09 00:11] VITALS: BP 150/64; PULSE 73; RESP 22; TEMP 36.3
[2019-11-11 10:21] VITALS: BP 117/73; PULSE 67; RESP 18; TEMP 37.1; BMI 27.2
--- NOTE | 2019-11-11 14:07 | PCM.WC.PN ---
(1) Ulcer of right lower extremity with fat layer exposed Status: Chronic Code(s): L97.912 - Non-pressure chronic ulcer of unspecified part of right lower leg with fat layer exposed (2) Foot drop, right Status: Chronic Code(s): M21.371 - Foot drop, right foot (3) Pain in right lower leg Status: Resolved Code(s): M79.661 - Pain in right lower leg (4) Other specified peripheral vascular diseases Status: Chronic Code(s): I73.89 - Other specified peripheral vascular diseases (5) Delayed wound healing Status: Chronic Code(s): T14.8XXD - Other injury of unspecified body region, subsequent encounter (6) Tobacco abuse Status: Chronic Code(s): Z72.0 - Tobacco use Type of Wound Date of Service: 11/11/19 Chief Complaint: Leg ulcer right History of Wound: Mr. Choe is a 69 year old with past medical history of atrial fibrillation, peripheral arterial disease status post left lower extremity stenting and tobacco abuse presents for follow-up of right leg ulcer. This is an ulcer recurrence. It is noted that he had a blood clot with subsequent fasciotomy delayed healing and other wound debridement and delayed primary closure was performed in 2019 at the same site. He has been washing with medical grade Siria-Hex soap since it has been identified that he has corynebacterium growth in his ulcer wound bed. He took antibiotics as advised. He has an appointment scheduled to follow-up with vascular surgery this Saturday for an updated angiogram procedure. He relates he is not able to wear his cam walker boot because the strap is rubbing directly over the site. He does still have his ankle-foot orthotic that he can wear. He relates he has been compliant with this this past week. He is with his daughter today. He relates his leg feels better when he dangles it. Progress of Wound: Stable - Physical Exam Vital Signs Temp Pulse Resp BP 98.7 F 67 18 117/73 11/11/19 10:21 11/11/19 10:21 11/11/19 10:21 11/11/19 10:21 General: Alert, Oriented x3, Cooperative, No apparent distress Extremities: No cyanosis, Capillary Refill Less than 3 Seconds, No Calf Tenderness, Diminished Peripheral Pulses, Edema, Tenderness - With ulcer manipulation Skin: Ulcer/ Wound - Deep fascial layer is exposed. There is no purulence, erythema, streaking, odor. The adjacent skin is hairless and atrophic Wound Measurements and Assessment WC - Nurse 1 - General Ulcer Measurement Start: 11/11/19 10:21 Freq: Status: Active Protocol: Activity Type Activity Date Activity User E-Sign Co-Sign Detail Recorded Client Recorded Date Recorded By Document 11/11/19 10:21 RB [id number] 11/11/19 10:25 RB 11/11/19 10:21 Wound Center Nurse 1 [Ulcer Assessment] #4 R Lat Lower Leg -Combined with other wound No -Current Size (cm) - Length 3.3 -Current Size (cm) - Width 0.7 -Current Size (cm) - Depth 0.7 -Total Square Cm 2.31 -Tunneling No -Undermining/Tunneling No -Circular Undermining No -Exudate Amt Medium -Exudate Type Serosanguineous -Wound Margin Thickened & Rolled Under -Granulation Amt Medium (34-66%) -Granulation Quality [place],Red -Slough/Fibrin Yes -Necrosis Amt Small (1-33%) -Necrotic Tissue Type Adherent Slough -Structure Exposed N/A -Texture (Denisa-wound Skin Appearance) Assessed -Moisture (Denisa-wound Skin Appearance Assessed ) -Color (Denisa-wound Skin Appearance) Assessed -Temperature (Denisa-wound Skin No Abnormality Appearance) (Pt Warm) -Tenderness on Palpation (Denisa-wound No Skin Appearance) -Ulcer Cleansing Wound Cleanser -Foul Odor after Cleansing No -Anesthetic Used 4% Lidocaine Solution [Edema Assessment] -Lower Limb Edema Present Yes -Right Calf (cm) 33 -Right Ankle (cm) 20.5 - Nurse 2 - General Ulcer CM Notes Start: 11/11/19 10:21 Freq: Status: Active Protocol: Activity Type Activity Date Activity User E-Sign Co-Sign Detail Recorded Client Recorded Date Recorded By Document 11/11/19 11:36 PL [id number] 11/11/19 11:37 PL 11/11/19 11:36 Wound Center Nurse 2 [Procedure/Treatment] #4 R Lat Lower Leg -Time 10:54 -Correct Patient Yes -Correct Side, Site, Position Yes -Correct Procedure Yes -Procedure Performed Yes -Type of Procedure Debridement -Clinical Debridement Selective -Post Debridement Size (cm) - Length 3.3 -Post Debridement Size (cm) - Width 0.7 -Post Debridement Size (cm) - Depth 0.7 -Total Square Cm 2.31 -Wound/Ulcer Outcome Not Healed -Ulcer Cleansing Rinsed/ Irrigated with Saline -Foul Odor after Cleansing No -Bleeding Controlled with Pressure -Treatment Response Procedure Tolerated Well [See Physician Procedure note for Specifics] Pain Scale: 0-10 Numeric [Pain] -Is Patient Pain Free? Yes Musculoskeletal: No Tenderness to Palpation of Joints or Extremities, Muscle Wasting, - - Weakness consistent with ongoing dropfoot is continued Neurological: Sensory exam intact to light touch and pain - Hypersensitivity Psych/Mental Status: Normal Affect, Appropriate Debridement Note Post-Debridement Measurements/Treatment WC - Nurse 2 - General Ulcer CM Notes Start: 11/11/19 10:21 Freq: Status: Active Protocol: Activity Type Activity Date Activity User E-Sign Co-Sign Detail Recorded Client Recorded Date Recorded By Document 11/11/19 11:36 PL [id number] 11/11/19 11:37 PL 11/11/19 11:36 Wound Center Nurse 2 #4 R Lat Lower Leg -Time 10:54 -Correct Patient Yes -Correct Side, Site, Position Yes -Correct Procedure Yes -Procedure Performed Yes -Type of Procedure Debridement -Clinical Debridement Selective -Post Debridement Size (cm) - Length 3.3 -Post Debridement Size (cm) - Width 0.7 -Post Debridement Size (cm) - Depth 0.7 -Total Square Cm 2.31 -Wound/Ulcer Outcome Not Healed -Ulcer Cleansing Rinsed/ Irrigated with Saline -Foul Odor after Cleansing No -Bleeding Controlled with Pressure -Treatment Response Procedure Tolerated Well Pain Scale: 0-10 Numeric Is Patient Pain Free? Yes Wound debrided: lateral leg Laterality: Right Type of Debridement: Selective debridement Anesthesia Used: 5% Lidocaine Gel Depth: in the subcutaneous layer Percentage of wound debrided: 100 Instrument Used: #15 blade Tissue Removed: fibrous, devitalized tissue, biofilm, slough Severity: Fat Layer Exposed Amount of bleeding with debridement: Mild Bleeding Controlled with: Pressure Patient tolerated procedure well Assessment/Plan Assessment: Return: Prior right leg ulcer with muscle exposed (This is a chronic ulcer with an onset of June 2018). Corynebacterium stratum contamination. Peripheral vascular disease. Leg edema and rule out venous insufficiency. Malnutrition. Discontinued tobacco use. Walking difficulty. Pain in right limb lower. Contraction right lower extremity at ankle level. Right dropfoot Plan: Patient was carefully examined and evaluated today. His ulcer was selectively debrided as noted in the clinical nursing panel. He was reassured there are no local signs of infection however his ongoing anteriorization is a concern. A culture for aerobic, anaerobic, and MRSA PCR was obtained in the recent setting to see if there is any bacterial contamination which may be contributing here. He had corynebacterium stratum growth and he was contacted previously and advised to wash with medical grade Siria-Hex antimicrobial soap. This is stabilized he completed a course of antibiotics. He was advised to switch over to Dial soap and water wash instead. To avoid soaking. I recommended wearing light compression to help control localized edema with a single layer Tubigrip. It is noted he has an extensive history of peripheral vascular disease and has a procedure scheduled for this Saturday with Dr. Yarbrough. He was advised to proceed as advised. He was advised to intermittently dangle the leg to improve arterial perfusion and this seems to also reduce his pain. I advised him to get into his cam walker which will mobilize him even more and compliance was discussed today. He reports the strap rubs directly on this site. As an alternative I recommended he tries to wear his ankle-foot orthotic and compliance is necessary. To resume nutritional supplementation. To discontinue [place] use. I recommend changing dressing with saline wet-to-dry with gauze to help with serial debridements over the course of the next week. The ulcer was debrided as noted in the clinical panel. Home health options will be pursued. To return to the wound healing center in 1 week. Answered all his questions. ---. 2019 macra update. Medication list and allergy list were reconciled and confirmed today.
[2019-11-18 10:06] VITALS: BP 145/74; PULSE 70; RESP 18; TEMP 36.8; O2SAT 96; BMI 27.2
--- NOTE | 2019-11-18 11:29 | PCM.WC.PN ---
(1) Ulcer of right lower extremity with fat layer exposed Status: Chronic Current Visit: Yes Code(s): L97.912 - Non-pressure chronic ulcer of unspecified part of right lower leg with fat layer exposed (2) Foot drop, right Status: Chronic Current Visit: Yes Code(s): M21.371 - Foot drop, right foot (3) Pain in right lower leg Status: Resolved Current Visit: Yes Code(s): M79.661 - Pain in right lower leg (4) Other specified peripheral vascular diseases Status: Chronic Current Visit: Yes Code(s): I73.89 - Other specified peripheral vascular diseases (5) Delayed wound healing Status: Chronic Current Visit: Yes Code(s): T14.8XXD - Other injury of unspecified body region, subsequent encounter (6) Tobacco abuse Status: Chronic Current Visit: Yes Code(s): Z72.0 - Tobacco use Type of Wound Date of Service: 11/18/19 Chief Complaint: Leg ulcer right History of Wound: Mr. Choe is a 69 year old with past medical history of atrial fibrillation, peripheral arterial disease status post left lower extremity stenting and tobacco abuse presents for follow-up of right leg ulcer. He has moderate to severe leg ulcer pain and request a pain management referral. He relates he had successful vascular surgery intervention this past Saturday with Dr. Yarbrough. He relates his ulcer site has been bleeding more since the procedure. He has increased leg pain to the ulcer site. Progress of Wound: Stable - Physical Exam Vital Signs Temp Pulse Resp BP Pulse Ox 98.2 F 70 18 145/74 H 96 11/18/19 10:06 11/18/19 10:06 11/18/19 10:06 11/18/19 10:06 11/18/19 10:06 General: Alert, Oriented x3, Cooperative, No apparent distress HEENT: Atraumatic Extremities: No cyanosis, Capillary Refill Less than 3 Seconds, No Calf Tenderness, Diminished Peripheral Pulses Skin: Ulcer/ Wound - No purulence, erythema, streaking, odor, infection. Peripheral skin is hairless and atrophic. Wound Measurements and Assessment WC - Nurse 1 - General Ulcer Measurement Start: 11/11/19 10:21 Freq: Status: Active Protocol: Activity Type Activity Date Activity User E-Sign Co-Sign Detail Recorded Client Recorded Date Recorded By Document 11/18/19 10:06 [id number] 11/18/19 10:12 [place] 11/18/19 10:06 Wound Center Nurse 1 [Ulcer Assessment] #4 R Lat Lower Leg -Current Size (cm) - Length 4.0 -Current Size (cm) - Width 1.0 -Total Square Cm 4.00 -Exudate Amt Medium -Exudate Type Serosanguineous -Wound Margin Thickened & Rolled Under -Granulation Amt Small (1-33%) -Granulation Quality [place] -Slough/Fibrin Yes -Necrosis Amt Medium (34-66%) -Texture (Denisa-wound Skin Appearance) Assessed, Scarring -Moisture (Denisa-wound Skin Appearance Assessed, ) Maceration -Color (Denisa-wound Skin Appearance) Assessed, Erythema -Temperature (Denisa-wound Skin No Abnormality Appearance) (Pt Warm) -Tenderness on Palpation (Denisa-wound No Skin Appearance) -Ulcer Cleansing Rinsed/ Irrigated with Saline -Foul Odor after Cleansing No -Anesthetic Used 5% Lidocaine Gel [Edema Assessment] -Lower Limb Edema Present Yes -Right Calf (cm) 33 -Right Ankle (cm) 20.5 WC - Nurse 2 - General Ulcer CM Notes Start: 11/11/19 10:21 Freq: Status: Active Protocol: Activity Type Activity Date Activity User E-Sign Co-Sign Detail Recorded Client Recorded Date Recorded By Document 11/18/19 10:31 [id number] 11/18/19 10:33 11/18/19 10:31 Wound Center Nurse 2 [Procedure/Treatment] #4 R Lat Lower Leg -Time 10:31 -Correct Patient Yes -Correct Side, Site, Position Yes -Correct Procedure Yes -Procedure Performed Yes -Type of Procedure Debridement -Clinical Debridement Subcutaneous -Post Debridement Size (cm) - Length 4.1 -Post Debridement Size (cm) - Width 1 -Post Debridement Size (cm) - Depth 0.8 -Total Square Cm 4.1 -Wound/Ulcer Outcome Not Healed -Ulcer Cleansing Rinsed/ Irrigated with Saline -Foul Odor after Cleansing No -Bioengineered Tissue No -Bleeding Controlled with Pressure -Offloading No -Treatment Response Procedure Tolerated Well [See Physician Procedure note for Specifics] Pain Scale: 0-10 Numeric [Pain] -Is Patient Pain Free? Yes Musculoskeletal: No Tenderness to Palpation of Joints or Extremities, Muscle Wasting, - - Right dropfoot. Compartments are soft to palpate Neurological: Sensory exam intact to light touch and pain Psych/Mental Status: Normal Affect, Appropriate Debridement Note Post-Debridement Measurements/Treatment WC - Nurse 2 - General Ulcer CM Notes Start: 11/11/19 10:21 Freq: Status: Active Protocol: Activity Type Activity Date Activity User E-Sign Co-Sign Detail Recorded Client Recorded Date Recorded By Document 11/11/19 11:36 PL [id number] 11/11/19 11:37 PL Document 11/18/19 10:31 [id number] 11/18/19 10:33 JF 11/11/19 11/18/19 11:36 10:31 Wound Center Nurse 2 #4 R Lat Lower Leg -Time 10:54 10:31 -Correct Patient Yes Yes -Correct Side, Site, Position Yes Yes -Correct Procedure Yes Yes -Procedure Performed Yes Yes -Type of Procedure Debridement Debridement -Clinical Debridement Selective Subcutaneous -Post Debridement Size (cm) - Length 3.3 4.1 -Post Debridement Size (cm) - Width 0.7 1 -Post Debridement Size (cm) - Depth 0.7 0.8 -Total Square Cm 2.31 4.1 -Wound/Ulcer Outcome Not Healed Not Healed -Ulcer Cleansing Rinsed/ Rinsed/ Irrigated with Irrigated with Saline Saline -Foul Odor after Cleansing No No -Bioengineered Tissue No -Bleeding Controlled with Pressure Pressure -Offloading No -Treatment Response Procedure Procedure Tolerated Well Tolerated Well Pain Scale: 0-10 Numeric Is Patient Pain Free? Yes Yes Wound debrided: lateral leg Laterality: Right Type of Debridement: Excisional debridement Anesthesia Used: 5% Lidocaine Gel Depth: in the subcutaneous layer Percentage of wound debrided: 100 Instrument Used: #15 blade Tissue Removed: fibrous, devitalized subcutaneous, biofilm, slough Severity: Fat Layer Exposed Amount of bleeding with debridement: Mild Bleeding Controlled with: Pressure Patient tolerated procedure well Assessment/Plan Active Problems (Last Reviewed 01/29/19 @ 16:[address] Faraz Connolly MD) Ulcer of right lower extremity with fat layer exposed (Chronic) Foot drop, right (Chronic) Other specified peripheral vascular diseases (Chronic) Delayed wound healing (Chronic) Tobacco abuse (Chronic) Assessment: Return: Prior right leg ulcer with muscle exposed (This is a chronic ulcer with an onset of June 2018). Corynebacterium stratum contamination. Peripheral vascular disease. Leg edema and rule out venous insufficiency. Malnutrition. Discontinued tobacco use. Walking difficulty. Pain in right limb lower. Contraction right lower extremity at ankle level. Right dropfoot Plan: Patient was carefully examined and evaluated today. His ulcer was debrided as noted in the clinical nursing panel. He was reassured there are no local signs of infection however his ongoing anteriorization is a concern. A culture for aerobic, anaerobic, and MRSA PCR was obtained in the recent setting to see if there is any bacterial contamination which may be contributing here. He had corynebacterium stratum growth and he was contacted previously and advised to wash with medical grade Siria-Hex antimicrobial soap. This is stabilized he completed a course of antibiotics. He was advised to switch over to Dial soap and water wash instead. To avoid soaking. I recommended wearing light compression to help control localized edema with a single layer Tubigrip. He had a recent vascular surgery intervention with Dr. Yarbrough this past Saturday. He was advised to intermittently dangle the leg to improve arterial perfusion and this seems to also reduce his pain. I provided him with [place] prescription he was advised to take 1 tablet prior to coming in for wound center debridements. I also provided him with a pain management referral for his limb pain and also history of chronic pain. I advised him to get into his cam walker which will mobilize him even more and compliance was discussed today. He reports the strap rubs directly on this site. As an alternative I recommended he tries to wear his ankle-foot orthotic and compliance is necessary. To resume nutritional supplementation. To resume changing the dressing daily with Aquacel Ag. The ulcer was debrided as noted in the clinical panel. Home health options will be pursued. To return to the wound healing center in 1 week. Answered all his questions. ---. 2020 macra update. Medication list and allergy list were reconciled and confirmed today.
[2019-11-25 10:11] VITALS: BP 138/86; PULSE 65; RESP 18; TEMP 36.1; BMI 27.2
--- NOTE | 2019-11-25 11:20 | PN.PCM_ITS ---
(1) Ulcer of right lower extremity with fat layer exposed Status: Chronic Current Visit: Yes Code(s): L97.912 - Non-pressure chronic ulcer of unspecified part of right lower leg with fat layer exposed (2) Foot drop, right Status: Chronic Current Visit: Yes Code(s): M21.371 - Foot drop, right foot (3) Pain in right lower leg Status: Chronic Current Visit: Yes Code(s): M79.661 - Pain in right lower leg (4) Other specified peripheral vascular diseases Status: Chronic Current Visit: Yes Code(s): I73.89 - Other specified peripheral vascular diseases (5) Delayed wound healing Status: Chronic Current Visit: Yes Code(s): T14.8XXD - Other injury of unspecified body region, subsequent encounter (6) Tobacco abuse Status: Resolved Current Visit: Yes Code(s): Z72.0 - Tobacco use Type of Wound Date of Service: 11/25/19 Chief Complaint: Leg ulcer right History of Wound: Mr. Choe is a 69 year old with past medical history of atrial fibrillation, peripheral arterial disease status post left lower extremity stenting and tobacco abuse presents for follow-up of right leg ulcer. He has moderate to severe leg ulcer pain and request a pain management referral. He is scheduled this afternoon with Dr. Barrett. He relates he had successful vascular surgery intervention recently with Dr. Yarbrough. He is with his daughter today. He denies fever, chill, nausea, vomiting. Progress of Wound: Stable - Physical Exam Vital Signs Temp Pulse Resp BP Pulse Ox 97.0 F L 65 18 138/86 H 96 11/25/19 10:11 11/25/19 10:11 11/25/19 10:11 11/25/19 10:11 11/18/19 10:06 General: Alert, Oriented x3, Cooperative Extremities: No cyanosis, Capillary Refill Less than 3 Seconds, Diminished Peripheral Pulses, Edema Skin: Ulcer/ Wound - No purulence, erythema, string, odor, infection. The ulcer still deep with exposed fascial layer. There is no exposed bone. The adjacent skin is hairless and atrophic., - - No fluctuance or bogginess on palpation. Compartments remain soft to palpate to the right limb. Wound Measurements and Assessment WC - Nurse 1 - General Ulcer Measurement Start: 11/11/19 10:21 Freq: Status: Active Protocol: Activity Type Activity Date Activity User E-Sign Co-Sign Detail Recorded Client Recorded Date Recorded By Document 11/25/19 10:11 [id number] 11/25/19 10:18 BS 11/25/19 10:11 Wound Center Nurse 1 [Ulcer Assessment] #4 R Lat Lower Leg -Combined with other wound No -Current Size (cm) - Length 5.5 -Current Size (cm) - Width 1.1 -Total Square Cm 6.05 -Photo Taken No -Moisture (Denisa-wound Skin Appearance Assessed, ) Maceration,Dry/ Scaly -Color (Denisa-wound Skin Appearance) Assessed, Hemosiderin Staining -Temperature (Denisa-wound Skin No Abnormality Appearance) (Pt Warm) -Tenderness on Palpation (Denisa-wound Yes Skin Appearance) -Ulcer Cleansing Rinsed/ Irrigated with Saline -Foul Odor after Cleansing No -Anesthetic Used 4% Lidocaine Solution WC - Nurse 2 - General Ulcer CM Notes Start: 11/11/19 10:21 Freq: Status: Active Protocol: Activity Type Activity Date Activity User E-Sign Co-Sign Detail Recorded Client Recorded Date Recorded By Document 11/25/19 10:26 [id number] 11/25/19 10:29 11/25/19 10:26 Wound Center Nurse 2 [Procedure/Treatment] -Time 10:27 -Correct Patient Yes -Correct Side, Site, Position Yes -Correct Procedure Yes -Procedure Performed Yes -Type of Procedure Debridement -Clinical Debridement Subcutaneous -Post Debridement Size (cm) - Length 5.1 -Post Debridement Size (cm) - Width 1.1 -Post Debridement Size (cm) - Depth 1.0 -Total Square Cm 5.61 -Wound/Ulcer Outcome Not Healed -Ulcer Cleansing Rinsed/ Irrigated with Saline -Foul Odor after Cleansing No -Bioengineered Tissue No -Bleeding Controlled with Pressure -Offloading No -Treatment Response Procedure Tolerated Well [See Physician Procedure note for Specifics] Pain Scale: 0-10 Numeric [Pain] -Is Patient Pain Free? Yes Musculoskeletal: No Tenderness to Palpation of Joints or Extremities, Muscle Wasting, Tenderness Neurological: Sensory exam intact to light touch and pain Psych/Mental Status: Normal Affect, Appropriate Debridement Note Post-Debridement Measurements/Treatment WC - Nurse 2 - General Ulcer CM Notes Start: 11/11/19 10:21 Freq: Status: Active Protocol: Activity Type Activity Date Activity User E-Sign Co-Sign Detail Recorded Client Recorded Date Recorded By Document 11/11/19 11:36 PL [id number] 11/11/19 11:37 PL Document 11/18/19 10:31 JF [id number] 11/18/19 10:33 JF Document 11/25/19 10:26 JF [id number] 11/25/19 10:29 JF 11/11/19 11/18/19 11/25/19 11:36 10:31 10:26 Wound Center Nurse 2 #4 R Lat Lower Leg -Time 10:54 10:31 10:27 -Correct Patient Yes Yes Yes -Correct Side, Site, Position Yes Yes Yes -Correct Procedure Yes Yes Yes -Procedure Performed Yes Yes Yes -Type of Procedure Debridement Debridement Debridement -Clinical Debridement Selective Subcutaneous Subcutaneous -Post Debridement Size (cm) - Length 3.3 4.1 5.1 -Post Debridement Size (cm) - Width 0.7 1 1.1 -Post Debridement Size (cm) - Depth 0.7 0.8 1.0 -Total Square Cm 2.31 4.1 5.61 -Wound/Ulcer Outcome Not Healed Not Healed Not Healed -Ulcer Cleansing Rinsed/ Rinsed/ Rinsed/ Irrigated with Irrigated with Irrigated with Saline Saline Saline -Foul Odor after Cleansing No No No -Bioengineered Tissue No No -Bleeding Controlled with Pressure Pressure Pressure -Offloading No No -Treatment Response Procedure Procedure Procedure Tolerated Well Tolerated Well Tolerated Well Pain Scale: 0-10 Numeric Is Patient Pain Free? Yes Yes Yes Wound debrided: leg Laterality: Right Type of Debridement: Excisional debridement Anesthesia Used: 5% Lidocaine Gel Depth: in the subcutaneous layer Percentage of wound debrided: 100 Instrument Used: #15 blade Tissue Removed: fibrous, devitalized subcutaneous, biofilm, slough Severity: Fat Layer Exposed Amount of bleeding with debridement: Mild Bleeding Controlled with: Pressure Patient tolerated procedure well Assessment/Plan Active Problems (Last Reviewed 01/29/19 @ 16:[address] Faraz Connolly MD) Ulcer of right lower extremity with fat layer exposed (Chronic) Foot drop, right (Chronic) Pain in right lower leg (Chronic) Other specified peripheral vascular diseases (Chronic) Delayed wound healing (Chronic) Assessment: Return: Prior right leg ulcer with muscle exposed. Corynebacterium stratum contamination. Peripheral vascular disease. Leg edema and rule out niraj ous insufficiency. Malnutrition. Discontinued tobacco use. Walking difficulty. Pain in right limb lower. Contraction right lower extremity at ankle level. Right dropfoot Plan: Patient was carefully examined and evaluated today. His ulcer was debrided as noted in the clinical nursing panel. He was reassured there are no local signs of infection however his ongoing anteriorization is a concern. A culture for aerobic, anaerobic, and MRSA PCR was obtained in the recent setting to see if there is any bacterial contamination which may be contributing here. He had corynebacterium stratum growth and he was contacted previously and advised to wash with medical grade Siria-Hex antimicrobial soap. This is stabilized he completed a course of antibiotics. He was advised to switch over to Dial soap and water wash instead. To avoid soaking. I recommended wearing light compression to help control localized edema with a single layer Tubigrip. He had a recent vascular surgery intervention with Dr. Yarbrough recently. He was advised to intermittently dangle the leg to improve arterial perfusion and this seems to also reduce his pain. I also provided him with a pain management referral for his limb pain and also history of chronic pain. He will be seen this afternoon. I advised him to get into his cam walker which will mobilize him even more and compliance was discussed today. He reports the strap rubs directly on this site. As an alternative I recommended he tries to wear his ankle-foot orthotic and compliance is necessary. To resume nutritional supplementation. To resume changing the dressing daily with Aquacel Ag. I recommend transitioning to a wound VAC, sarah. Prior authorization will be started. I also discussed advanced wound healing options with him including going to the operating room for debridement under local anesthesia with application of amnio fill. The purpose of this is to stimulate this delayed healing ulcer site again. He has an extensive history of delayed healing and has tried other conservative care measures with continued lack of progress. The indications, planned procedure, benefits, risk, complications, and anticipated healing time management were discussed in detail patient did not understands elects to proceed at this time. He understands risk of complications include but are not limited to following: Pain, swelling, scarring, need for further surgery, delayed or nonhealing, loss of limb, function, life, allergic reaction, blood clot. To return to the wound healing center in 1 week. Answered all his questions. ---. 2020 macra update. Medication list and allergy list were reconciled and confirmed today.
[2019-12-02 12:03] VITALS: BP 149/81; PULSE 62; RESP 20; TEMP 36.3; BMI 27.2
--- NOTE | 2019-12-02 12:28 | PCM.WC.PN ---
(1) Ulcer of right lower extremity with fat layer exposed Status: Chronic Code(s): L97.912 - Non-pressure chronic ulcer of unspecified part of right lower leg with fat layer exposed (2) Foot drop, right Status: Chronic Code(s): M21.371 - Foot drop, right foot (3) Pain in right lower leg Status: Chronic Code(s): M79.661 - Pain in right lower leg (4) Other specified peripheral vascular diseases Status: Chronic Code(s): I73.89 - Other specified peripheral vascular diseases (5) Delayed wound healing Status: Chronic Code(s): T14.8XXD - Other injury of unspecified body region, subsequent encounter (6) Tobacco abuse Status: Resolved Code(s): Z72.0 - Tobacco use (7) Colonization status Status: Suspected Code(s): Z22.9 - Carrier of infectious disease, unspecified Type of Wound Date of Service: 12/02/19 Chief Complaint: Leg ulcer right History of Wound: Mr. Choe is a 69 year old with past medical history of atrial fibrillation, peripheral arterial disease status post left lower extremity stenting and tobacco abuse presents for follow-up of right leg ulcer. He is under the care of resin painter, Dr. Barrett. He relates he had successful vascular surgery intervention recently with Dr. Yarbrough. He is with his daughter today. He denies fever, chill, nausea, vomiting. Progress of Wound: Stable - Physical Exam Vital Signs Temp Pulse Resp BP Pulse Ox 97.3 F L 62 20 H 149/81 H 96 12/02/19 12:03 12/02/19 12:03 12/02/19 12:03 12/02/19 12:03 11/18/19 10:06 General: Alert, Oriented x3, Cooperative, No apparent distress HEENT: Atraumatic Extremities: No cyanosis, Capillary Refill Less than 3 Seconds, No Calf Tenderness, Diminished Peripheral Pulses, Edema Skin: Ulcer/ Wound - No purulence, erythema, streaking, odor, infection. There is delayed ulcer healing noted and there is deep fascial tissue exposed with pain to palpation. The compartments remain soft and there is no abscess or bone exposed. Adjacent skin is hairless and atrophic Wound Measurements and Assessment WC - Nurse 1 - General Ulcer Measurement Start: 11/11/19 10:21 Freq: Status: Active Protocol: Activity Type Activity Date Activity User E-Sign Co-Sign Detail Recorded Client Recorded Date Recorded By Document 12/02/19 12:03 MAREK [id number] 12/02/19 12:09 DL 12/02/19 12:03 Wound Center Nurse 1 [Ulcer Assessment] #4 R Lat Lower Leg -Current Size (cm) - Length 5 -Current Size (cm) - Width 0.6 -Current Size (cm) - Depth 0.5 -Total Square Cm 3.0 -Photo Taken No -Exudate Amt Small -Exudate Type Serosanguineous -Wound Margin Distinct, Outline Attached -Granulation Amt Small (1-33%) -Granulation Quality [place]ama -Necrosis Amt Large (67-100%) -Necrotic Tissue Type Adherent Slough -Structure Exposed N/A -Texture (Denisa-wound Skin Appearance) Scarring -Moisture (Denisa-wound Skin Appearance No Abnormality ) -Color (Denisa-wound Skin Appearance) Rubor -Temperature (Denisa-wound Skin No Abnormality Appearance) (Pt Warm) -Tenderness on Palpation (Denisa-wound No Skin Appearance) -Ulcer Cleansing Rinsed/ Irrigated with Saline -Foul Odor after Cleansing No -Anesthetic Used 4% Lidocaine Solution WC - Nurse 2 - General Ulcer CM Notes Start: 11/11/19 10:21 Freq: Status: Active Protocol: Activity Type Activity Date Activity User E-Sign Co-Sign Detail Recorded Client Recorded Date Recorded By Document 12/02/19 12:19 [email or web address] [id number] 12/02/19 12:22 JF 12/02/19 12:19 Wound Center Nurse 2 [Procedure/Treatment] -Time 12:21 -Correct Patient Yes -Correct Side, Site, Position Yes -Correct Procedure Yes -Procedure Performed Yes -Type of Procedure Debridement -Clinical Debridement Subcutaneous -Post Debridement Size (cm) - Length 5.0 -Post Debridement Size (cm) - Width 0.8 -Post Debridement Size (cm) - Depth 0.8 -Total Square Cm 4.00 -Wound/Ulcer Outcome Not Healed -Ulcer Cleansing Rinsed/ Irrigated with Saline -Foul Odor after Cleansing No -Bioengineered Tissue No -Bleeding Controlled with Pressure -Offloading No -Treatment Response Procedure Tolerated Well [See Physician Procedure note for Specifics] Pain Scale: 0-10 Numeric [Pain] -Is Patient Pain Free? Yes Musculoskeletal: No Tenderness to Palpation of Joints or Extremities, Muscle Wasting, - - Pain with ulcer manipulation Neurological: Sensory exam intact to light touch and pain Psych/Mental Status: Normal Affect, Appropriate Debridement Note Post-Debridement Measurements/Treatment - Nurse 2 - General Ulcer CM Notes Start: 11/11/19 10:21 Freq: Status: Active Protocol: Activity Type Activity Date Activity User E-Sign Co-Sign Detail Recorded Client Recorded Date Recorded By Document 11/11/19 11:36 PL [id number] 11/11/19 11:37 PL Document 11/18/19 10:31 [id number] 11/18/19 10:33 Document 11/25/19 10:26 [id number] 11/25/19 10:29 Document 12/02/19 12:19 [id number] 12/02/19 12:22 11/11/19 11/18/19 11/25/19 11:36 10:31 10:26 Wound Center Nurse 2 #4 R Lat Lower Leg -Time 10:54 10:31 10:27 -Correct Patient Yes Yes Yes -Correct Side, Site, Position Yes Yes Yes -Correct Procedure Yes Yes Yes -Procedure Performed Yes Yes Yes -Type of Procedure Debridement Debridement Debridement -Clinical Debridement Selective Subcutaneous Subcutaneous -Post Debridement Size (cm) - Length 3.3 4.1 5.1 -Post Debridement Size (cm) - Width 0.7 1 1.1 -Post Debridement Size (cm) - Depth 0.7 0.8 1.0 -Total Square Cm 2.31 4.1 5.61 -Wound/Ulcer Outcome Not Healed Not Healed Not Healed -Ulcer Cleansing Rinsed/ Rinsed/ Rinsed/ Irrigated with Irrigated with Irrigated with Saline Saline Saline -Foul Odor after Cleansing No No No -Bioengineered Tissue No No -Bleeding Controlled with Pressure Pressure Pressure -Offloading No No -Treatment Response Procedure Procedure Procedure Tolerated Well Tolerated Well Tolerated Well Pain Scale: 0-10 Numeric Is Patient Pain Free? Yes Yes Yes 12/02/19 12:19 Wound Center Nurse 2 #4 R Lat Lower Leg -Time 12:21 -Correct Patient Yes -Correct Side, Site, Position Yes -Correct Procedure Yes -Procedure Performed Yes -Type of Procedure Debridement -Clinical Debridement Subcutaneous -Post Debridement Size (cm) - Length 5.0 -Post Debridement Size (cm) - Width 0.8 -Post Debridement Size (cm) - Depth 0.8 -Total Square Cm 4.00 -Wound/Ulcer Outcome Not Healed -Ulcer Cleansing Rinsed/ Irrigated with Saline -Foul Odor after Cleansing No -Bioengineered Tissue No -Bleeding Controlled with Pressure -Offloading No -Treatment Response Procedure Tolerated Well Pain Scale: 0-10 Numeric Is Patient Pain Free? Yes Wound debrided: leg Laterality: Right Type of Debridement: Selective debridement Anesthesia Used: 5% Lidocaine Gel Depth: in the subcutaneous layer Percentage of wound debrided: 100 Instrument Used: #15 blade Tissue Removed: fibrous, devitalized tissue, biofilm, slough Severity: Fat Layer Exposed Amount of bleeding with debridement: Mild Bleeding Controlled with: Pressure Patient tolerated procedure well Assessment/Plan Assessment: Return: Prior right leg ulcer with muscle exposed. Corynebacterium stratum contamination. Peripheral vascular disease. Leg edema and rule out venous insufficiency. Malnutrition. Discontinued tobacco use. Walking difficulty. Pain in right limb lower. Contraction right lower extremity at ankle level. Right dropfoot Plan: Patient was carefully examined and evaluated today. His ulcer was debrided as noted in the clinical nursing panel. He was reassured there are no local signs of infection however his ongoing deteriorization is a concern. A culture for aerobic, anaerobic, and MRSA PCR was obtained in the recent setting to see if there is any bacterial contamination which may be contributing here. He had corynebacterium stratum growth and he was contacted previously and advised to wash with medical grade Siria-Hex antimicrobial soap. This is stabilized he completed a course of antibiotics. He was advised to switch over to Dial soap and water wash instead. To avoid soaking. I recommended wearing light compression to help control localized edema with a single layer Tubigrip. He had a recent vascular surgery intervention with Dr. Yarbrough recently. Dr. Yarbrough's operation report from 11-13-2019 was reviewed as the followin. Ultrasound-guided access retrograde left common femoral artery 2. Aortogram with bilateral iliofemoral angiogram 3. Right lower extremity angiogram catheter was placed into the anterior tibial artery for past the third order cannulation 4. Balloon angioplasty to anterior tibial artery into the popliteal 5. Balloon angioplasty of the popliteal occlusion 6. Balloon angioplasty popliteal occlusion with a drug-coated balloon and balloon angioplasty of the SFA's with stent and proximal femoral artery with the same balloon for prolonged inflation. He was advised to intermittently dangle the leg to improve arterial perfusion and this seems to also reduce his pain. I also provided him with a pain management referral for his limb pain and also history of chronic pain. He is under the management of pain specialist, Dr. Galan. I advised him to get into his cam walker or ankle-foot orthotic which will mobilize him even more. To resume nutritional supplementation. To resume changing the dressing daily with Aquacel Ag. I recommend transitioning to a wound VAC, sarah. Prior authorization will be started. This was approved and will be applied with gauze into the void of the deeper aspect of the ulcer. I also discussed advanced wound healing options with him including going to the operating room for debridement under local anesthesia with application of amnio fill. The purpose of this is to stimulate this delayed healing ulcer site again. He has an extensive history of delayed healing and has tried other conservative care measures with continued lack of progress. The indications, planned procedure, benefits, risk, complications, and anticipated healing time management were discussed in detail patient did not understands elects to proceed at this time. He understands risk of complications include but are not limited to following: Pain, swelling, scarring, need for further surgery, delayed or nonhealing, loss of limb, function, life, allergic reaction, blood clot. To return to the wound healing center in 1 week. Surgical consent will need to be signed. This is a limb salvage recommendation. Answered all his questions. ---. 2019 macra update. Medication list and allergy list were reconciled and confirmed today.
== END 2019-12-08 23:59 ==
LOC: WC 11:45
PROVIDERS: Family Provider Family Medicine; PCP Family Medicine; Referring Provider Podiatrist; Visit Provider Podiatrist
DX: L97.912 Non-pressure chronic ulcer of unspecified part of right lower leg with fat layer exposed (principal); M21.371 Foot drop, right foot; I73.9 Peripheral vascular disease, unspecified; R60.0 Localized edema; E46 Unspecified protein-calorie malnutrition; R26.2 Difficulty in walking, not elsewhere classified; I48.91 Unspecified atrial fibrillation; Z72.0 Tobacco use
CPT/HCPCS: 11042; 97597; 97607; 99212; G0463

== ENCOUNTER 2020-01-01 09:56 | Day surgery (SDC) | payer MEDICARE, MEDICAID, SELFPAY ==
[2019-12-30 10:38] VITALS: BMI 27.2
[2020-01-01 10:40] VITALS: BP 149/81; PULSE 66; RESP 16; TEMP 36.7; O2SAT 94; BMI 25.2
[2020-01-01] MEDS: Bupivacaine Mpf 0.5% 30 ML VIAL (11:30)
--- NOTE | 2020-01-01 12:00 | PCM.DC.POD ---
Discharge Diet: No Restrictions Weight Bearing Status: Full weight bearing Keep extremity elevated above heart level: Right Leg Call your doctor if your incision/area has: Continuous Slow Oozing, Sudden Increased Bleeding, Increased Pain/ Swelling, Increased Redness, Foul Smelling Discharge, Swelling at the incision site Call your doctor if you observe: Fever of 101 or Higher, Calf discomfort, Uncontrolled pain Cleanse incision/area with: Keep Dressing Clean & Dry - Keep RONNIE wound vac on continuous and call if alerts start. Allergies/Adverse Reactions: Allergies No Known Allergies Allergy (Verified 01/01/20 10:34) Medications to take at Discharge Clopidogrel Bisulfate [Plavix] 75 mg PO DAILY 05/30/17 Hydrocodone/Acetaminophen [[place] 5-325 Tablet] 1 ea PO DAILY 01/01/20 Primary Care Physician: Joe Blanco MD [Primary Care Provider] - Test Results: Test results from this visit will be discussed in further detail at your follow-up appointment, if applicable. Please Follow Up With: Felisha Titus DPM When: Wound care center next Sat. Call [phone] if questions or concerns Proposed Discharge Date: 01/01/20
--- NOTE | 2020-01-01 12:02 | OP.PCM_ITS ---
Problem List (1) Other specified peripheral vascular diseases Status: Chronic (2) Ulcer of right lower extremity with muscle involvement without evidence of necrosis Status: Chronic (3) Delayed wound healing Status: Chronic Report of Operation Date of Procedure: 01/01/20 Pre-Operative Diagnosis: Chronic right leg ulcer with delayed healing Post-Operative Diagnosis: Chronic right leg ulcer with delayed healing Surgery/Procedure Performed:: 1. Subcutaneous excisional debridement, right leg. 2. Application of advanced wound product, amnio fill, right leg. 3. Application of wound VAC (RONNIE), right leg Description of Surgical Findings:: Hemostasis: No tourniquet utilized Materials: 500 mg amniofill (placental and umbilical cord derived advanced wound healing product), Adaptic, 2-0 nylon, RONNIE wound VAC Specimen sent Complications: None The patient tolerated the procedure and anesthesia well. He was transported to the recovery room in stable condition with vascular status intact to the right lower extremity. There were no signs of necrosis or infection intraoperative. His wound VAC appears to remain in a stable condition. He will be discharged home. His postoperative orders were electronically. production control supervisor: none - surgeon: Felisha Titus DPM. Business Services Coordinator: Felicita Sandoval PGY2 Type of Anesthesia:: Local - 15 cc of 1% lidocaine plain and 0.5% Marcaine plain administered in typical local infiltrative fashion to the ulcer of right leg Specimen's removed: Right leg tissue culture sent to microbiology for aerobic, anaerobic, acid-fast, fungal Estimated Blood Loss (mL): <35 mL Description of Procedure: Indications: This 69-year-old male with significant past medical history of atrial fibrillation, rheumatic mitral valve disease, peripheral vascular disease, history of deep venous thrombosis, and history of myocardial infarction. He currently has a recurrent right leg ulcer with delayed healing. He does have a complicated history of prior delayed healing ulcers that are recurrent, infections, prior compartment syndrome with widespread fasciotomy, and also multiple vascular surgery procedures. He is stable at this time. There are no local signs of infection at this time and he elects to proceed forward with the operating room debridement, application of advanced wound healing product, and wound vac placement. His neurovascular status is stable. He does have a chronic dropfoot and this has also been stable. He wears a brace. The preoperative indications, planned procedure, possible benefits, risks, complications, and anticipated healing time and management were discussed in detail with the patient. No guarantees were made. He understands and elects to proceed with surgery at this time. Surgical consent and limb were signed. He understands complications may include the following but are not limited to: continued infection, pain, scar formation, chronic pain, delayed or non healing, loss of sensation, loss of function, loss of limb or life, allergic reaction, blood clot, need for further surgery. He continues on therapeutic anticoagulation medication at this time. I answered all of his questions. He also understands there is an inherent risk of COVID-19 while having a procedure done at the hospital during this time of pandemic. He understands safety precautions will be maintained and the relative community risk is low however there is still a risk. The surgical consent and limb were signed. Procedure in detail: The patient was transported to the operating room via cart and placed on the operating table in supine position. Final verification patient, surgery, limb designation was performed via the timeout procedure. No antibiotics were administered preoperative. He was provided with preoperative oral Ativan for sedation. Additional anesthesia was not provided. I administered the preoperative local anesthetic as noted. Right lower extremity was prepped and draped in the usual aseptic manner. The procedure began in the following manner: Attention was first directed to the anterior lateral leg. A versa jet on setting 8 was used at this time to perform subcutaneous excisional debridement. Predebridement ulcer measured 5.4 x 0.7 x 0.8 cm the pre-debridement measurement was 6.3 x 1.5 x 1.2 cm. pressure was applied to maintain hemostasis. There was no pulsatile bleeding noted. Copious saline irrigation was performed. Due to his recurrent infection history. A clean tissue sample was obtained and sent to microbiology for aerobic, anaerobic, acid-fast, fungal testing. Next, amniofill was packed into the remaining deficit; 500 mg. Next a wound veil consisting of Adaptic was gently sutured in place with nylon suture. The RONNIE wound VAC was applied according to standard protocol and was set continuous. Pressure was applied to maintain hemostasis prior to the wound VAC application and there was no pulsatile bleeding noted. No necrosis, purulence, signs of infection, or other deep tissue structures were noted. No additional tunnelling was noted. Capillary fill time was less than 3 seconds to all remaining digits of the right foot. There were no leaks noted with the wound vac. Additional abdominal pads and an Fady wrap applied in a noncompressive manner to secure the vac and dressing. After procedure: The patient tolerated the procedure and anesthesia well. He was transported to recovery area in stable condition and with vascular status intact to the right lower extremity. To reduce excessive walking activity. I recommend [place] nutritional supplementation to optimize healing. He was advised to keep his dressing and RONNIE wound vac clean and intact until follow-up with the wound healing center next Saturday. He will intermittently elevate and dangle for pain and edema management. Additional vascular intervention is not recommended at this time per recent vascular intervention follow up. He will be discharged home today. His orders are entered electronically. Felisha Titus DPM, [facility] Grafts/Implants Used: amniofill - Complications none - Admit VTE Documentation VTE Present on Admission: No VTE Mechan Device Prophylaxis: SCD's VTE Pharm Prophylaxis ordered?: No Reason prophylaxis not ordered:: Procedure Not Indicated
[2020-01-01 12:17] VITALS: BP 149/81; BP 152/88; PULSE 68; RESP 16; TEMP 36.2; O2SAT 95
== END 2020-01-01 12:18 | disposition home or self-care (01) ==
LOC: SDC 09:57 → AC 09:58
PROVIDERS: Anesthesiology; PCP Family Medicine; Referring Provider Podiatrist; Visit Provider Podiatrist
PROC: (CPT 11042; principal; 2020-01-01 10:45)
DX: L97.915 Non-pressure chronic ulcer of unspecified part of right lower leg with muscle involvement without evidence of necrosis (principal); L03.115 Cellulitis of right lower limb; I73.89 Other specified peripheral vascular diseases; M21.371 Foot drop, right foot; R26.2 Difficulty in walking, not elsewhere classified; I48.91 Unspecified atrial fibrillation; I25.2 Old myocardial infarction; Z86.718 Personal history of other venous thrombosis and embolism; Z79.01 Long term (current) use of anticoagulants; Z11.59 Encounter for screening for other viral diseases
CPT/HCPCS: 11042; 97605; 87015; 87070; 87075; 87077; 87102; 87116; 87205; 87206; 87635; G2023; J7120; U0003

== ENCOUNTER 2020-01-08 11:00 | Outpatient (RCR) | payer MEDICARE, MEDICAID, SELFPAY ==
[2019-12-09 00:15] VITALS: BP 149/81; PULSE 62; RESP 20; TEMP 36.3; O2SAT 96
[2019-12-09 11:44] VITALS: BP 157/83; PULSE 61; RESP 20; TEMP 36.4; BMI 27.2
--- NOTE | 2019-12-09 12:12 | PCM.WC.PN ---
(1) Ulcer of right lower extremity with muscle involvement without evidence of necrosis Status: Chronic Current Visit: Yes Code(s): L97.915 - Non-pressure chronic ulcer of unspecified part of right lower leg with muscle involvement without evidence of necrosis (2) Foot drop, right Status: Chronic Current Visit: Yes Code(s): M21.371 - Foot drop, right foot (3) Difficulty walking Status: Chronic Current Visit: Yes Code(s): R26.2 - Difficulty in walking, not elsewhere classified (4) Pain in right lower leg Status: Chronic Current Visit: Yes Code(s): M79.661 - Pain in right lower leg (5) Cellulitis of right leg Status: Acute Current Visit: Yes Code(s): L03.115 - Cellulitis of right lower limb (6) Other specified peripheral vascular diseases Status: Chronic Current Visit: Yes Code(s): I73.89 - Other specified peripheral vascular diseases Type of Wound Date of Service: 12/09/19 Chief Complaint: Leg ulcer right History of Wound: Mr. Choe is a 69 year old with past medical history of atrial fibrillation, peripheral arterial disease status post left lower extremity stenting and tobacco abuse presents for follow-up of right leg ulcer. He is under the care of sign painter apprentice, Dr. Barrett. He relates he had successful vascular surgery intervention recently with Dr. Yarbrough. He is with his daughter today. He denies fever, chill, nausea, vomiting. He reports increased pain and odor. He has kept his wound VAC in place. The onset of his pain and odor was about 1 day ago. He denies trauma. He tries to wear his brace. Progress of Wound: Worsening status now with infection - Physical Exam Vital Signs Temp Pulse Resp BP Pulse Ox 97.5 F L 61 20 H 157/83 H 96 12/09/19 11:44 12/09/19 11:44 12/09/19 11:44 12/09/19 11:44 12/09/19 00:15 General: Alert, Oriented x3, Cooperative, No apparent distress HEENT: Atraumatic Extremities: Diminished Peripheral Pulses, Edema - mild Skin: Ulcer/ Wound - There is no purulence on expression or streaking. There is some erythema that extends approximately half of a centimeter denisa-ulcer and there is increased fibrous wound bed with increased serosanguineous filmy drainage. There is no janel eschar probe to bone. The skin adjacent is hairless and atrophic, - - Odor noted and discolored drainage on sarah wound VAC Wound Measurements and Assessment - Nurse 1 - General Ulcer Measurement Start: 12/09/19 11:44 Freq: Status: Active Protocol: Activity Type Activity Date Activity User E-Sign Co-Sign Detail Recorded Client Recorded Date Recorded By Document 12/09/19 11:44 MAREK [id number] 12/09/19 11:49 DL 12/09/19 11:44 Wound Center Nurse 1 [Ulcer Assessment] #4 R Lat Lower Leg -Current Size (cm) - Length 4.8 -Current Size (cm) - Width 0.6 -Current Size (cm) - Depth 0.5 -Total Square Cm 2.88 -Photo Taken No -Exudate Amt Small -Exudate Type Serosanguineous -Wound Margin Distinct, Outline Attached -Granulation Amt None Present (0 %) -Necrosis Amt Large (67-100%) -Necrotic Tissue Type Adherent Slough -Structure Exposed N/A -Texture (Denisa-wound Skin Appearance) Scarring -Moisture (Denisa-wound Skin Appearance No Abnormality ) -Color (Denisa-wound Skin Appearance) Erythema,Rubor -Temperature (Denisa-wound Skin No Abnormality Appearance) (Pt Warm) -Tenderness on Palpation (Denisa-wound Yes Skin Appearance) -Ulcer Cleansing Wound Cleanser -Foul Odor after Cleansing No -Anesthetic Used 4% Lidocaine Solution [facility] Nurse 2 - General Ulcer CM Notes Start: 12/09/19 11:44 Freq: Status: Active Protocol: Activity Type Activity Date Activity User E-Sign Co-Sign Detail Recorded Client Recorded Date Recorded By Document 12/09/19 11:54 BLANKA [id number] 12/09/19 12:02 BLANKA 12/09/19 11:54 Wound Center Nurse 2 [Procedure/Treatment] -Time 12:01 -Correct Patient Yes -Correct Side, Site, Position Yes -Correct Procedure Yes -Procedure Performed Yes -Type of Procedure Debridement -Clinical Debridement Subcutaneous -Post Debridement Size (cm) - Length 4.8 -Post Debridement Size (cm) - Width 0.7 -Post Debridement Size (cm) - Depth 0.8 -Total Square Cm 3.36 -Wound/Ulcer Outcome Not Healed -Ulcer Cleansing Rinsed/ Irrigated with Saline -Foul Odor after Cleansing No -Bioengineered Tissue No -Bleeding Controlled with Pressure -Offloading No -Treatment Response Procedure Tolerated Well [See Physician Procedure note for Specifics] Pain Scale: 0-10 Numeric [Pain] -Is Patient Pain Free? Yes Musculoskeletal: No Tenderness to Palpation of Joints or Extremities, Muscle Wasting, - - Weakness consistent with dropfoot right lower extremity Neurological: Sensory exam intact to light touch and pain, - Psych/Mental Status: Normal Affect, Appropriate Debridement Note Post-Debridement Measurements/Treatment WC - Nurse 2 - General Ulcer CM Notes Start: 12/09/19 11:44 Freq: Status: Active Protocol: Activity Type Activity Date Activity User E-Sign Co-Sign Detail Recorded Client Recorded Date Recorded By Document 12/09/19 11:54 BLANKA [id number] 12/09/19 12:02 BLANKA 12/09/19 11:54 Wound Center Nurse 2 #4 R Lat Lower Leg -Time 12:01 -Correct Patient Yes -Correct Side, Site, Position Yes -Correct Procedure Yes -Procedure Performed Yes -Type of Procedure Debridement -Clinical Debridement Subcutaneous -Post Debridement Size (cm) - Length 4.8 -Post Debridement Size (cm) - Width 0.7 -Post Debridement Size (cm) - Depth 0.8 -Total Square Cm 3.36 -Wound/Ulcer Outcome Not Healed -Ulcer Cleansing Rinsed/ Irrigated with Saline -Foul Odor after Cleansing No -Bioengineered Tissue No -Bleeding Controlled with Pressure -Offloading No -Treatment Response Procedure Tolerated Well Pain Scale: 0-10 Numeric Is Patient Pain Free? Yes Wound debrided: lateral leg Laterality: Right Type of Debridement: Excisional debridement Anesthesia Used: 5% Lidocaine Gel Depth: in the subcutaneous layer Percentage of wound debrided: 100 Instrument Used: #15 blade Tissue Removed: fibrous, devitalized subcutaneous, biofilm, slough Severity: Fat Layer Exposed Amount of bleeding with debridement: Mild Bleeding Controlled with: Pressure Patient tolerated procedure well Assessment/Plan Active Problems (Last Reviewed 01/29/19 @ 16:[address] Faraz Connolly MD) Ulcer of right lower extremity with muscle involvement without evidence of necrosis (Chronic) Cellulitis of right leg (Acute) Foot drop, right (Chronic) Difficulty walking (Chronic) Pain in right lower leg (Chronic) Other specified peripheral vascular diseases (Chronic) Assessment: Return: Prior right leg ulcer with muscle exposed. Infection right leg /cellulitis. Peripheral vascular disease. Leg edema and rule out venous insufficiency. Malnutrition. Discontinued tobacco use. Walking difficulty. Pain in right limb lower. Contraction right lower extremity at ankle level. Right dropfoot Plan: Patient was carefully examined and evaluated today. His ulcer was debrided as noted in the clinical nursing panel. He appears to have local signs of infection without systemic signs of illness today. A culture for aerobic, anaerobic, and MRSA PCR was obtained. I will follow the results and call him as these finalized. A prescription for Augmentin was provided in clinic today he was advised to take twice daily, 875 mg tablet. To continue to wash daily with Siria-Hex antimicrobial soap. The sarah wound VAC was stopped at this time. I recommend changing the dressing daily with Dakin's solution wet-to-dry. A prescription was provided. His daughter will help him with this. To avoid soaking. I recommended wearing light compression to help control localized edema with a single layer Tubigrip. He had a recent vascular surgery intervention with Dr. Yarbrough recently. Dr. Yarbrough's operation report from 11-13-2019 was reviewed as the followin. Ultrasound-guided access retrograde left common femoral artery 2. Aortogram with bilateral iliofemoral angiogram 3. Right lower extremity angiogram catheter was placed into the anterior tibial artery for past the third order cannulation 4. Balloon angioplasty to anterior tibial artery into the popliteal 5. Balloon angioplasty of the popliteal occlusion 6. Balloon angioplasty popliteal occlusion with a drug-coated balloon and balloon angioplasty of the SFA's with stent and proximal femoral artery with the same balloon for prolonged inflation. He was advised to intermittently dangle the leg to improve arterial perfusion and this seems to also reduce his pain. I also provided him with a pain management referral for his limb pain and also history of chronic pain. He is under the management of pain specialist, Dr. Galan. I advised him to get into his cam walker or ankle-foot orthotic which will mobilize him even more. To resume nutritional supplementation. I also discussed advanced wound healing options with him including going to the operating room for debridement under local anesthesia with application of amnio fill. The purpose of this is to stimulate this delayed healing ulcer site again. He has an extensive history of delayed healing and has tried other conservative care measures with continued lack of progress. This plan was put on hold until the infection is cleared. To return to the wound healing center in 1 week. I answered all his questions. ---. 2020 macra update. Medication list and allergy list were reconciled and confirmed today.
[2019-12-09 14:33] LABS: ALB/GLOB Ratio 0.7 RATIO (0.9-2.4); AST(SGOT) 20 U/L (15-37); Alanine Aminotransfer ALT/SGPT 16 U/L (16-61); Albumin, Serum 3.6 g/dL (3.2-5.0); Alkaline Phosphatase 98 U/L (45-117); Anion Gap 6 (5-15); BUN 13 mg/dL (7-18); BUN/Creat Ratio 14.1 RATIO (10-20); Chloride 107 mmol/L (98-107); Creatinine, Serum 0.92 mg/dL (0.70-1.30); EST Glomerular Filtration Rate 87 mL/min (>60); Est Glom Filt Rate - Afr Amer 105 mL/min (>60); Estimated Creatinine Clearance 85.52 ml/min; Globulin 5.2 g/dL (2.2-4.2); Glucose 91 mg/dL (74-106); Potassium 4.2 mmol/L (3.5-5.1); Protein, Total 8.8 g/dL (6.4-8.2); Sodium Level 138 mmol/L (136-145)
[2019-12-09 15:39] LABS: Probe Check PASS; Staph aureus DNA By PCR POSITIVE (Negative)
[2019-12-09 15:43] LABS: M R Staph aureus DNA By PCR POSITIVE (Negative)
[2019-12-10 15:16] LABS: Absolute Lymphocyte Count 2.57 X10^3/uL (0.83-4.51); Absolute Neutrophil Count 3.5 X10^3/uL (2.0-7.7); Basophil# 0.05 X10^3/uL; Basophil% 0.7 % (0-1); Eosinophil# 0.19 X10^3/uL; Eosinophils% 2.8 % (0-5); Hematocrit 42.4 % (40-54); Hemoglobin 13.5 g/dL (13.0-16.5); Lymphocyte # 2.57 X10^3/ul (4.0); Mean Corp Hgb Conc 31.8 g/dL (32-36); Mean Corpuscular Hgb 28.7 pg (27.0-32.0); Mean Platelet Vol. 10.1 fl (6.2-12.0); Monocyte% 7.4 % (0-10); NRBC Flagged by Analyzer 0 % (0-5); Neutrophil # 3.45 X10^3/uL (2.7-7.7); Platelet Count 232 K/mm3 (150-450); RBC Distribution Width CV 15.8 % (11.6-14.6); RBC Distribution Width SD 51.7 fl (35.1-43.9); Red Blood Count 4.71 M/mm3 (4.6-6.2); White Blood Count 6.8 K/mm3 (4.4-11.0)
[2019-12-10 15:42] LABS: Erythrocyte Sedimentation Rate 52 mm/hr (0-20)
[2019-12-16 10:52] VITALS: BP 129/81; PULSE 65; RESP 18; TEMP 37; BMI 27.2
--- NOTE | 2019-12-16 11:48 | PCM.WC.PN ---
(1) Cellulitis of right leg Status: Acute Current Visit: Yes Code(s): L03.115 - Cellulitis of right lower limb (2) Ulcer of right lower extremity with muscle involvement without evidence of necrosis Status: Chronic Current Visit: Yes Code(s): L97.915 - Non-pressure chronic ulcer of unspecified part of right lower leg with muscle involvement without evidence of necrosis (3) Foot drop, right Status: Chronic Current Visit: Yes Code(s): M21.371 - Foot drop, right foot (4) Difficulty walking Status: Chronic Current Visit: Yes Code(s): R26.2 - Difficulty in walking, not elsewhere classified (5) Pain in right lower leg Status: Chronic Current Visit: Yes Code(s): M79.661 - Pain in right lower leg (6) Other specified peripheral vascular diseases Status: Chronic Current Visit: Yes Code(s): I73.89 - Other specified peripheral vascular diseases Type of Wound Date of Service: 12/16/19 Chief Complaint: Leg ulcer right History of Wound: Mr. Choe is a 69 year old with past medical history of atrial fibrillation, peripheral arterial disease status post left lower extremity stenting and tobacco abuse presents for follow-up of right leg ulcer. He is under the care of body technician/painter, Dr. Barrett. He relates he had successful vascular surgery intervention recently with Dr. Yarbrough and he is scheduled to follow-up on either December 29 or . He is with his daughter today. He denies fever, chill, nausea, vomiting. He reports decreased pain and resolved odor. He is taking doxycycline as advised and has 1 day left. He has been changing the dressing daily with Dakin's solution also. His surgical intervention has been placed on hold until his infection clears up. He tries to wear his brace. Progress of Wound: Infection is resolving and the ulcer site is stable - Physical Exam Vital Signs Temp Pulse Resp BP Pulse Ox 98.6 F 65 18 129/81 H 96 12/16/19 10:52 12/16/19 10:52 12/16/19 10:52 12/16/19 10:52 12/09/19 00:15 General: Alert, Oriented x3, Cooperative, No apparent distress Extremities: No cyanosis, Capillary Refill Less than 3 Seconds, No Calf Tenderness, Diminished Peripheral Pulses, Edema - Mild Skin: Ulcer/ Wound - No purulence on expression. The odor has resolved. The keenan-ulcer erythema and tenderness on palpation is also decreasing. There is no bogginess or fluctuance on palpation. There is deeper tissue exposed but not bone. There is some undermining proximally which is also consistent with the natural fascial plane, - - The adjacent skin is hairless and atrophic Wound Measurements and Assessment WC - Nurse 1 - General Ulcer Measurement Start: 12/09/19 11:44 Freq: Status: Active Protocol: Activity Type Activity Date Activity User E-Sign Co-Sign Detail Recorded Client Recorded Date Recorded By Document 12/16/19 10:52 BS [id number] 12/16/19 11:00 BS 12/16/19 10:52 Wound Center Nurse 1 [Ulcer Assessment] #4 R Lat Lower Leg -Combined with other wound No -Current Size (cm) - Length 5.3 -Current Size (cm) - Width 1.3 -Total Square Cm 6.89 -Photo Taken No -Necrotic Tissue Type Adherent Slough -Texture (Keenan-wound Skin Appearance) Assessed, Scarring -Moisture (Keenan-wound Skin Appearance Assessed,Dry/ ) Scaly -Color (Keenan-wound Skin Appearance) Assessed, Hemosiderin Staining -Temperature (Keenan-wound Skin No Abnormality Appearance) (Pt Warm) -Tenderness on Palpation (Keenan-wound Yes Skin Appearance) -Ulcer Cleansing Soap and water -Foul Odor after Cleansing No -Anesthetic Used 4% Lidocaine Solution WC - Nurse 2 - General Ulcer CM Notes Start: 12/09/19 11:44 Freq: Status: Active Protocol: Activity Type Activity Date Activity User E-Sign Co-Sign Detail Recorded Client Recorded Date Recorded By Document 12/16/19 11:09 PL [id number] 12/16/19 11:14 PL 12/16/19 11:09 Wound Center Nurse 2 [Procedure/Treatment] -Time 11:10 -Correct Patient Yes -Correct Side, Site, Position Yes -Correct Procedure Yes -Procedure Performed Yes -Type of Procedure Debridement -Clinical Debridement Selective -Post Debridement Size (cm) - Length 5.3 -Post Debridement Size (cm) - Width 1.3 -Post Debridement Size (cm) - Depth 1.7 -Total Square Cm 6.89 -Wound/Ulcer Outcome Not Healed -Ulcer Cleansing Rinsed/ Irrigated with Saline -Foul Odor after Cleansing No -Bleeding Controlled with Pressure -Treatment Response Procedure Tolerated Well [See Physician Procedure note for Specifics] Pain Scale: 0-10 Numeric [Pain] -Is Patient Pain Free? Yes Musculoskeletal: Muscle Wasting, Tenderness, - - Compartment to the right lower extremity remain soft to palpate Neurological: Sensory exam intact to light touch and pain - Hypersensitive to touch Psych/Mental Status: Normal Affect, Appropriate Debridement Note Post-Debridement Measurements/Treatment WC - Nurse 2 - General Ulcer CM Notes Start: 12/09/19 11:44 Freq: Status: Active Protocol: Activity Type Activity Date Activity User E-Sign Co-Sign Detail Recorded Client Recorded Date Recorded By Document 12/09/19 11:54 JF [id number] 12/09/19 12:02 JF Document 12/16/19 11:09 PL [id number] 12/16/19 11:14 PL 12/09/19 12/16/19 11:54 11:09 Wound Center Nurse 2 #4 R Lat Lower Leg -Time 12:01 11:10 -Correct Patient Yes Yes -Correct Side, Site, Position Yes Yes -Correct Procedure Yes Yes -Procedure Performed Yes Yes -Type of Procedure Debridement Debridement -Clinical Debridement Subcutaneous Selective -Post Debridement Size (cm) - Length 4.8 5.3 -Post Debridement Size (cm) - Width 0.7 1.3 -Post Debridement Size (cm) - Depth 0.8 1.7 -Total Square Cm 3.36 6.89 -Wound/Ulcer Outcome Not Healed Not Healed -Ulcer Cleansing Rinsed/ Rinsed/ Irrigated with Irrigated with Saline Saline -Foul Odor after Cleansing No No -Bioengineered Tissue No -Bleeding Controlled with Pressure Pressure -Offloading No -Treatment Response Procedure Procedure Tolerated Well Tolerated Well Pain Scale: 0-10 Numeric Is Patient Pain Free? Yes Yes Wound debrided: leg Laterality: Right Type of Debridement: Selective debridement Anesthesia Used: 5% Lidocaine Gel Depth: in the subcutaneous layer Percentage of wound debrided: 100 Instrument Used: 3mm curette Tissue Removed: fibrous, devitalized subcutaneous, biofilm, slough Severity: Fat Layer Exposed Amount of bleeding with debridement: Mild Bleeding Controlled with: Pressure Patient tolerated procedure well Assessment/Plan Active Problems (Last Reviewed 01/29/19 @ 16:[address] Faraz Connolly MD) Ulcer of right lower extremity with muscle involvement without evidence of necrosis (Chronic) Cellulitis of right leg (Acute) Foot drop, right (Chronic) Difficulty walking (Chronic) Pain in right lower leg (Chronic) Other specified peripheral vascular diseases (Chronic) Assessment: Prior right leg ulcer with muscle exposed. Infection right leg /cellulitis improving. Peripheral vascular disease. Leg edema and rule out venous insufficiency. Malnutrition. Discontinued tobacco use. Walking difficulty. Pain in right limb lower. Contraction right lower extremity at ankle level. Right dropfoot Plan: Patient was carefully examined and evaluated today. His ulcer was debrided as noted in the clinical nursing panel. He appears to have local signs of infection without systemic signs of illness today that is improving. His labs performed last week were reviewed and the patient was called with the results previously. His white blood cell count was 6.8, sedimentation rate 52, and C-reactive protein 21.80. His culture results from his wound were MRSA positive and he was also called last week and his antibiotics were switched to doxycycline. He does not have any known drug allergies. Now finalized growth results also has Enterobacter cloaca complex and I recommend the addition of ciprofloxacin. These 2 antibiotics were electronically prescribed for an additional 10-day course to theodore [facility]. I recommend changing the dressing daily with Dakin's solution wet-to-dry. His daughter will help him with this. To avoid soaking. I recommended wearing light compression to help control localized edema with a single layer Tubigrip. He had a recent vascular surgery intervention with Dr. Yarbrough recently. Dr. Yarbrough's operation report from 11-13-2019 was reviewed as the followin. Ultrasound-guided access retrograde left common femoral artery 2. Aortogram with bilateral iliofemoral angiogram 3. Right lower extremity angiogram catheter was placed into the anterior tibial artery for past the third order cannulation 4. Balloon angioplasty to anterior tibial artery into the popliteal 5. Balloon angioplasty of the popliteal occlusion 6. Balloon angioplasty popliteal occlusion with a drug-coated balloon and balloon angioplasty of the SFA's with stent and proximal femoral artery with the same balloon for prolonged inflation. He was advised to intermittently dangle the leg to improve arterial perfusion and this seems to also reduce his pain. I also provided him with a pain management referral for his limb pain and also history of chronic pain. He is under the management of pain specialist, Dr. Barrett. I advised him to get into his cam walker or ankle-foot orthotic which will mobilize him even more. To resume nutritional supplementation. I also discussed advanced wound healing options with him including going to the operating room for debridement under local anesthesia with application of amnio fill. The purpose of this is to stimulate this delayed healing ulcer site again. He has an extensive history of delayed healing and has tried other conservative care measures with continued lack of progress. This plan was put on hold until the infection is cleared. To return to the wound healing center in 1 week. I answered all his questions. ---. 2019 macra update. Medication list and allergy list were reconciled and confirmed today.
--- NOTE | 2019-12-17 13:19 | WC ---
I spoke with Dr. Gaston and relayed that the patient was complaining of Nausea and dizziness since starting the new antibiotic. I received orders for the patient to stop the antibiotic if they thought that was the cause of the issues, Dr. gaston also recommended that the patient contact their PCP. This was relayed to the patient's and verbally acknowledged.
[2019-12-23 10:33] VITALS: BP 145/84; PULSE 62; RESP 20; TEMP 36.4; BMI 27.2
--- NOTE | 2019-12-23 11:49 | PCM.WC.PN ---
(1) Cellulitis of right leg Status: Resolved Code(s): L03.115 - Cellulitis of right lower limb (2) Ulcer of right lower extremity with muscle involvement without evidence of necrosis Status: Chronic Code(s): L97.915 - Non-pressure chronic ulcer of unspecified part of right lower leg with muscle involvement without evidence of necrosis (3) Foot drop, right Status: Chronic Code(s): M21.371 - Foot drop, right foot (4) Difficulty walking Status: Chronic Code(s): R26.2 - Difficulty in walking, not elsewhere classified (5) Pain in right lower leg Status: Chronic Code(s): M79.661 - Pain in right lower leg (6) Other specified peripheral vascular diseases Status: Chronic Code(s): I73.89 - Other specified peripheral vascular diseases Type of Wound Date of Service: 12/23/19 Chief Complaint: Leg ulcer right History of Wound: Mr. Choe is a 69 year old with past medical history of atrial fibrillation, peripheral arterial disease status post left lower extremity stenting and tobacco abuse presents for follow-up of right leg ulcer. He is under the care of chest painting leader, Dr. Barrett. He relates he had successful vascular surgery intervention recently with Dr. Yarbrough and he is scheduled to follow-up on either December 29 or . He is with his daughter today. He denies fever, chill, nausea, vomiting. He reports decreased pain and resolved odor. He completed a course of doxycycline. He has been changing the dressing daily with Dakin's solution also. He tries to wear his brace and understands he has a chronic dropfoot. He has ankle pain. This pain is chronic and unchanged recently. Progress of Wound: Stable with resolved local signs of infection - Physical Exam Vital Signs Temp Pulse Resp BP Pulse Ox 97.5 F L 62 20 H 145/84 H 96 12/23/19 10:33 12/23/19 10:33 12/23/19 10:12/23/19 10:33 12/09/19 00:15 General: Alert, Oriented x3, Cooperative, No apparent distress HEENT: Atraumatic Extremities: No cyanosis, Capillary Refill Less than 3 Seconds, No Calf Tenderness, Diminished Peripheral Pulses, Edema Skin: Ulcer/ Wound - No purulence, erythema, streaking, odor, infection. The adjacent erythema and edema and odor have resolved. His adjacent skin is hairless and atrophic. There is no exposed bone. Wound Measurements and Assessment WC - Nurse 1 - General Ulcer Measurement Start: 12/09/19 11:44 Freq: Status: Active Protocol: Activity Type Activity Date Activity User E-Sign Co-Sign Detail Recorded Client Recorded Date Recorded By Document 12/23/19 10:33 STEPHANIE [id number] 12/23/19 10:45 STEPHANIE 12/23/19 10:33 Wound Center Nurse 1 [Ulcer Assessment] #4 R Lat Lower Leg -Combined with other wound No -Current Size (cm) - Length 5.3 -Current Size (cm) - Width 1.0 -Current Size (cm) - Depth 0.9 -Total Square Cm 5.30 -Photo Taken No -Tunneling No -Undermining/Tunneling No -Circular Undermining No -Classification - Thickness Full Thickness without Exposed Support Structure -Exudate Amt Large -Exudate Type Serosanguineous -Wound Margin Flat & Intact -Granulation Amt None Present (0 %) -Granulation Quality N/A -Slough/Fibrin No -Necrosis Amt Medium (34-66%) -Necrotic Tissue Type Adherent Slough -Structure Exposed None/Limited to Skin Breakdown -Texture (Denisa-wound Skin Appearance) Assessed, Scarring -Moisture (Denisa-wound Skin Appearance Assessed, ) Weeping -Color (Denisa-wound Skin Appearance) No Abnormality, Assessed -Temperature (Denisa-wound Skin No Abnormality Appearance) (Pt Warm) -Foul Odor after Cleansing No -Anesthetic Used 4% Lidocaine Solution JENNIFER - Nurse 2 - General Ulcer CM Notes Start: 12/09/19 11:44 Freq: Status: Active Protocol: Activity Type Activity Date Activity User E-Sign Co-Sign Detail Recorded Client Recorded Date Recorded By Document 12/23/19 11:02 BLANKA [id number] 12/23/19 11:07 BLANKA 12/23/19 11:02 Wound Center Nurse 2 [Procedure/Treatment] -Time 11:02 -Correct Patient Yes -Correct Side, Site, Position Yes -Correct Procedure Yes -Procedure Performed Yes -Type of Procedure Debridement -Clinical Debridement Selective -Post Debridement Size (cm) - Length 5.4 -Post Debridement Size (cm) - Width 1 -Post Debridement Size (cm) - Depth 0.9 -Total Square Cm 5.4 -Wound/Ulcer Outcome Not Healed -Ulcer Cleansing Rinsed/ Irrigated with Saline -Foul Odor after Cleansing No -Bioengineered Tissue No -Bleeding Controlled with Pressure -Offloading No -Type of Offloading Surgical Shoe -Treatment Response Procedure Tolerated Well [See Physician Procedure note for Specifics] Pain Scale: 0-10 Numeric [Pain] -Is Patient Pain Free? Yes Musculoskeletal: No Tenderness to Palpation of Joints or Extremities, Muscle Wasting, - - Compartments are soft to palpate Neurological: Sensory exam intact to light touch and pain - Hypersensitivity Psych/Mental Status: Normal Affect, Appropriate Debridement Note Post-Debridement Measurements/Treatment WC - Nurse 2 - General Ulcer CM Notes Start: 12/09/19 11:44 Freq: Status: Active Protocol: Activity Type Activity Date Activity User E-Sign Co-Sign Detail Recorded Client Recorded Date Recorded By Document 12/09/19 11:54 [id number] 12/09/19 12:02 JF Document 12/16/19 11:09 PL [id number] 12/16/19 11:14 PL Document 12/23/19 11:02 [id number] 12/23/19 11:07 12/09/19 12/16/19 12/23/19 11:54 11:09 11:02 Wound Center Nurse 2 #4 R Lat Lower Leg -Time 12:01 11:10 11:02 -Correct Patient Yes Yes Yes -Correct Side, Site, Position Yes Yes Yes -Correct Procedure Yes Yes Yes -Procedure Performed Yes Yes Yes -Type of Procedure Debridement Debridement Debridement -Clinical Debridement Subcutaneous Selective Selective -Post Debridement Size (cm) - Length 4.8 5.3 5.4 -Post Debridement Size (cm) - Width 0.7 1.3 1 -Post Debridement Size (cm) - Depth 0.8 1.7 0.9 -Total Square Cm 3.36 6.89 5.4 -Wound/Ulcer Outcome Not Healed Not Healed Not Healed -Ulcer Cleansing Rinsed/ Rinsed/ Rinsed/ Irrigated with Irrigated with Irrigated with Saline Saline Saline -Foul Odor after Cleansing No No No -Bioengineered Tissue No No -Bleeding Controlled with Pressure Pressure Pressure -Offloading No No -Type of Offloading Surgical Shoe -Treatment Response Procedure Procedure Procedure Tolerated Well Tolerated Well Tolerated Well Pain Scale: 0-10 Numeric Is Patient Pain Free? Yes Yes Yes Wound debrided: leg Laterality: Right Type of Debridement: Excisional debridement Anesthesia Used: 5% Lidocaine Gel Depth: in the subcutaneous layer Percentage of wound debrided: 100 Instrument Used: #15 blade Tissue Removed: fibrous, devitalized subcutaneous, biofilm, slough Severity: Fat Layer Exposed Amount of bleeding with debridement: Mild Bleeding Controlled with: Pressure Patient tolerated procedure well Assessment/Plan Assessment: Prior right leg ulcer with muscle exposed. Infection right leg /cellulitis resolved. Peripheral vascular disease. Leg edema and rule out venous insufficiency. Malnutrition. Discontinued tobacco use. Walking difficulty. Pain in right limb lower. Contraction right lower extremity at ankle level. Right dropfoot Plan: Patient was carefully examined and evaluated today. His ulcer was debrided as noted in the clinical nursing panel. He appears to have local signs of infection without systemic signs of illness that have resolved today. His labs performed previously were reviewed and the patient was called with the results previously. His white blood cell count was 6.8, sedimentation rate 52, and C-reactive protein 21.80. His culture results from his wound were MRSA positive and he was also called last week and his antibiotics were switched to doxycycline. He completed this course. He does not have any known drug allergies. Now finalized growth results also has Enterobacter cloaca complex and I recommend the addition of ciprofloxacin. He was advised to complete the course. I recommend changing the dressing daily with Dakin's solution wet-to-dry. His daughter will help him with this. To avoid soaking. I recommended wearing light compression to help control localized edema with a single layer Tubigrip. He had a recent vascular surgery intervention with Dr. Yarbrough recently. Dr. Yarbrough's operation report from 11-13-2019 was reviewed as the followin. Ultrasound-guided access retrograde left common femoral artery 2. Aortogram with bilateral iliofemoral angiogram 3. Right lower extremity angiogram catheter was placed into the anterior tibial artery for past the third order cannulation 4. Balloon angioplasty to anterior tibial artery into the popliteal 5. Balloon angioplasty of the popliteal occlusion 6. Balloon angioplasty popliteal occlusion with a drug-coated balloon and balloon angioplasty of the SFA's with stent and proximal femoral artery with the same balloon for prolonged inflation. He was advised to intermittently dangle the leg to improve arterial perfusion and this seems to also reduce his pain. I also provided him with a pain management referral for his limb pain and also history of chronic pain. He is under the management of pain specialist, Dr. Barrett. I advised him to get into his cam walker or ankle-foot orthotic which will mobilize him even more. To resume nutritional supplementation. I also discussed advanced wound healing options with him including going to the operating room for debridement under local anesthesia with application of amnio fill. The purpose of this is to stimulate this delayed healing ulcer site again. He has an extensive history of delayed healing and has tried other conservative care measures with continued lack of progress. We will tentatively schedule this for next week at [facility] with oral Ativan sedation. A prescription for the preprocedure medication will be sent to her pharmacy electronically and the date approaches. His consents were signed today for debridement of right leg with application of advanced wound healing product, amnio fill and wound VAC. He understands the indication, benefits, risk, complications, anticipated healing time and management. He understands risk and complications include but not limited to the following: Pain, swelling, scarring, continue non-or delayed healing, pain, need for revisional surgery, loss of limb, function, life, allergic reaction, blood clot, compartment syndrome, continued chronic pain. Answered all his questions. To return to the wound healing center in 1 week. Over 20 minutes was spent with this [id number] encounter including evaluation, treatment, management, education, and care coordination. ---. 2019 macra update. Medication list and allergy list were reconciled and confirmed today.
[2019-12-30 10:38] VITALS: BP 121/86; PULSE 55; RESP 20; TEMP 36.6; BMI 27.2
--- NOTE | 2019-12-30 14:32 | PCM.WC.PN ---
(1) Cellulitis of right leg Status: Resolved Current Visit: Yes Code(s): L03.115 - Cellulitis of right lower limb (2) Ulcer of right lower extremity with muscle involvement without evidence of necrosis Status: Chronic Current Visit: Yes Code(s): L97.915 - Non-pressure chronic ulcer of unspecified part of right lower leg with muscle involvement without evidence of necrosis (3) Foot drop, right Status: Chronic Current Visit: Yes Code(s): M21.371 - Foot drop, right foot (4) Difficulty walking Status: Chronic Current Visit: Yes Code(s): R26.2 - Difficulty in walking, not elsewhere classified (5) Pain in right lower leg Status: Chronic Current Visit: Yes Code(s): M79.661 - Pain in right lower leg (6) Other specified peripheral vascular diseases Status: Chronic Current Visit: Yes Code(s): I73.89 - Other specified peripheral vascular diseases Type of Wound Date of Service: 12/30/19 Chief Complaint: Leg ulcer right History of Wound: Mr. Choe is a 69 year old with past medical history of atrial fibrillation, peripheral arterial disease status post left lower extremity stenting and tobacco abuse presents for follow-up of right leg ulcer. He is under the care of cork painter and grader, Dr. Barrett. He relates he had successful vascular surgery intervention recently with Dr. Yarbrough and he is scheduled to follow-up on either December 29 or . He is with his daughter today. He denies fever, chill, nausea, vomiting. He reports decreased pain and resolved odor. He completed a course of doxycycline. He has been changing the dressing daily with Dakin's solution also. He tries to wear his brace and understands he has a chronic dropfoot. He has ankle pain. This pain is chronic and unchanged recently. He is scheduled for operating room debridement this Saturday including application of advanced wound healing product and vac. Progress of Wound: Stable - Physical Exam Vital Signs Temp Pulse Resp BP Pulse Ox 98 F 55 L 20 H 121/86 H 96 12/30/19 10:38 12/30/19 10:38 12/30/19 10:38 12/30/19 10:38 12/09/19 00:15 General: Alert, Oriented x3, Cooperative, No apparent distress HEENT: Atraumatic Extremities: Capillary Refill Less than 3 Seconds, No Calf Tenderness, Diminished Peripheral Pulses, Edema - mild Skin: Ulcer/ Wound - no purulence, no erythema, no streaking, no odor , no infection. Adjacent skin is atrophic. Wound Measurements and Assessment - Nurse 1 - General Ulcer Measurement Start: 12/09/19 11:44 Freq: Status: Active Protocol: Activity Type Activity Date Activity User E-Sign Co-Sign Detail Recorded Client Recorded Date Recorded By Document 12/30/19 10:38 MAREK [id number] 12/30/19 10:45 DL 12/30/19 10:38 Wound Center Nurse 1 [Ulcer Assessment] #4 R Lat Lower Leg -Current Size (cm) - Length 5.5 -Current Size (cm) - Width 0.6 -Current Size (cm) - Depth 0.5 -Total Square Cm 3.30 -Photo Taken No -Exudate Amt Small -Exudate Type Serosanguineous -Wound Margin Distinct, Outline Attached -Granulation Amt None Present (0 %) -Necrosis Amt Large (67-100%) -Necrotic Tissue Type Adherent Slough -Structure Exposed N/A -Texture (Denisa-wound Skin Appearance) Scarring -Moisture (Denisa-wound Skin Appearance No Abnormality ) -Color (Denisa-wound Skin Appearance) Ecchymosis -Tenderness on Palpation (Denisa-wound Yes Skin Appearance) -Ulcer Cleansing Rinsed/ Irrigated with Saline -Foul Odor after Cleansing No -Anesthetic Used 4% Lidocaine Solution [Edema Assessment] -Right Calf (cm) 31 -Right Ankle (cm) 19.8 - Nurse 2 - General Ulcer CM Notes Start: 12/09/19 11:44 Freq: Status: Active Protocol: Activity Type Activity Date Activity User E-Sign Co-Sign Detail Recorded Client Recorded Date Recorded By Document 12/30/19 10:59 BLANKA [id number] 12/30/19 11:00 12/30/19 10:59 Wound Center Nurse 2 [Procedure/Treatment] #4 R Lat Lower Leg -Time 10:59 -Correct Patient Yes -Correct Side, Site, Position Yes -Correct Procedure Yes -Procedure Performed Yes -Type of Procedure Debridement -Clinical Debridement Selective -Post Debridement Size (cm) - Length 5.5 -Post Debridement Size (cm) - Width 0.6 -Post Debridement Size (cm) - Depth 0.5 -Total Square (cm) 3.30 -Wound/Ulcer Outcome Not Healed -Ulcer Cleansing Rinsed/ Irrigated with Saline -Foul Odor after Cleansing No -Bioengineered Tissue No -Bleeding Controlled with Pressure -Offloading No -Treatment Response Procedure Tolerated Well [See Physician Procedure note for Specifics] Pain Scale: 0-10 Numeric [Pain] -Is Patient Pain Free? Yes Musculoskeletal: No Tenderness to Palpation of Joints or Extremities, Muscle Wasting Neurological: Sensory exam intact to light touch and pain, - Psych/Mental Status: Normal Affect, Appropriate Debridement Note Post-Debridement Measurements/Treatment WC - Nurse 2 - General Ulcer CM Notes Start: 12/09/19 11:44 Freq: Status: Active Protocol: Activity Type Activity Date Activity User E-Sign Co-Sign Detail Recorded Client Recorded Date Recorded By Document 12/09/19 11:54 JF [id number] 12/09/19 12:02 Document 12/16/19 11:09 PL [id number] 12/16/19 11:14 PL Document 12/23/19 11:02 [id number] 12/23/19 11:07 Document 12/30/19 10:59 [id number] 12/30/19 11:00 12/09/19 12/16/19 12/23/19 11:54 11:09 11:02 Wound Center Nurse 2 #4 R Lat Lower Leg -Time 12:01 11:10 11:02 -Correct Patient Yes Yes Yes -Correct Side, Site, Position Yes Yes Yes -Correct Procedure Yes Yes Yes -Procedure Performed Yes Yes Yes -Type of Procedure Debridement Debridement Debridement -Clinical Debridement Subcutaneous Selective Selective -Post Debridement Size (cm) - Length 4.8 5.3 5.4 -Post Debridement Size (cm) - Width 0.7 1.3 1 -Post Debridement Size (cm) - Depth 0.8 1.7 0.9 -Total Square (cm) 3.36 6.89 5.4 -Wound/Ulcer Outcome Not Healed Not Healed Not Healed -Ulcer Cleansing Rinsed/ Rinsed/ Rinsed/ Irrigated with Irrigated with Irrigated with Saline Saline Saline -Foul Odor after Cleansing No No No -Bioengineered Tissue No No -Bleeding Controlled with Pressure Pressure Pressure -Offloading No No -Type of Offloading Surgical Shoe -Treatment Response Procedure Procedure Procedure Tolerated Well Tolerated Well Tolerated Well Pain Scale: 0-10 Numeric Is Patient Pain Free? Yes Yes Yes 12/30/19 10:59 Wound Center Nurse 2 #4 R Lat Lower Leg -Time 10:59 -Correct Patient Yes -Correct Side, Site, Position Yes -Correct Procedure Yes -Procedure Performed Yes -Type of Procedure Debridement -Clinical Debridement Selective -Post Debridement Size (cm) - Length 5.5 -Post Debridement Size (cm) - Width 0.6 -Post Debridement Size (cm) - Depth 0.5 -Total Square (cm) 3.30 -Wound/Ulcer Outcome Not Healed -Ulcer Cleansing Rinsed/ Irrigated with Saline -Foul Odor after Cleansing No -Bioengineered Tissue No -Bleeding Controlled with Pressure -Offloading No -Type of Offloading -Treatment Response Procedure Tolerated Well Pain Scale: 0-10 Numeric Is Patient Pain Free? Yes Wound debrided: leg Laterality: Right Type of Debridement: Selective debridement Anesthesia Used: 5% Lidocaine Gel Depth: in the subcutaneous layer Percentage of wound debrided: 100 Instrument Used: #15 blade Tissue Removed: fibrous, devitalized subcutaneous , biofilm, slough Severity: Fat Layer Exposed Amount of bleeding with debridement: Mild Bleeding Controlled with: Pressure Patient tolerated procedure well Assessment/Plan Active Problems (Last Reviewed 01/29/19 @ 16:[address] Faraz Connolly MD) Ulcer of right lower extremity with muscle involvement without evidence of necrosis (Chronic) Foot drop, right (Chronic) Difficulty walking (Chronic) Pain in right lower leg (Chronic) Other specified peripheral vascular diseases (Chronic) Assessment: Prior right leg ulcer with muscle exposed. Infection right leg /cellulitis resolved. Peripheral vascular disease. Leg edema and rule out venous insufficiency. Malnutrition. Discontinued tobacco use. Walking difficulty. Pain in right limb lower. Contraction right lower extremity at ankle level. Right dropfoot Plan: Patient was carefully examined and evaluated today. His ulcer was debrided as noted in the clinical nursing panel. He appears to have local signs of infection without systemic signs of illness that have resolved today. His labs performed previously were reviewed and the patient was called with the results previously. His white blood cell count was 6.8, sedimentation rate 52, and C-reactive protein 21.80. His culture results from his wound were MRSA positive and he was also called last week and his antibiotics were switched to doxycycline. He completed this course. He does not have any known drug allergies. Now finalized growth results also has Enterobacter cloaca complex and I recommend the addition of ciprofloxacin. He was advised to complete the course. I recommend changing the dressing daily with Dakin's solution wet-to-dry. His daughter will help him with this. To avoid soaking. I recommended wearing light compression to help control localized edema with a single layer Tubigrip. He had a recent vascular surgery intervention with Dr. Yarbrough recently. Dr. Yarbrough's operation report from 11-13-2019 was reviewed as the followin. Ultrasound-guided access retrograde left common femoral artery 2. Aortogram with bilateral iliofemoral angiogram 3. Right lower extremity angiogram catheter was placed into the anterior tibial artery for past the third order cannulation 4. Balloon angioplasty to anterior tibial artery into the popliteal 5. Balloon angioplasty of the popliteal occlusion 6. Balloon angioplasty popliteal occlusion with a drug-coated balloon and balloon angioplasty of the SFA's with stent and proximal femoral artery with the same balloon for prolonged inflation. He was advised to intermittently dangle the leg to improve arterial perfusion and this seems to also reduce his pain. I also provided him with a pain management referral for his limb pain and also history of chronic pain. He is under the management of pain specialist, Dr. Barrett. I advised him to get into his cam walker or ankle-foot orthotic which will mobilize him even more. To resume nutritional supplementation. I also discussed advanced wound healing options with him including going to the operating room for debridement under local anesthesia with application of amnio fill. The purpose of this is to stimulate this delayed healing ulcer site again. This will be performed on Saturday11-01-2019. He has an extensive history of delayed healing and has tried other conservative care measures with continued lack of progress. We will tentatively schedule this for next week at [facility] with oral Ativan sedation. A prescription for the preprocedure medication will be sent to her pharmacy electronically and the date approaches. His consents were signed today for debridement of right leg with application of advanced wound healing product, amnio fill and wound VAC. He understands the indication, benefits, risk, complications, anticipated healing time and management. He understands risk and complications include but not limited to the following: Pain, swelling, scarring, continue non-or delayed healing, pain, need for revisional surgery, loss of limb, function, life, allergic reaction, blood clot, compartment syndrome, continued chronic pain. Answered all his questions. ---. 2020 macra update. Medication list and allergy list were reconciled and confirmed today.
[2020-01-06 10:36] VITALS: BP 155/82; PULSE 62; RESP 16; TEMP 36.1; BMI 27.2
--- NOTE | 2020-01-06 10:43 | WC ---
sutures intact to post op wound
--- NOTE | 2020-01-06 11:12 | PCM.WC.PN ---
(1) Ulcer of right lower extremity with muscle involvement without evidence of necrosis Status: Chronic Current Visit: Yes Code(s): L97.915 - Non-pressure chronic ulcer of unspecified part of right lower leg with muscle involvement without evidence of necrosis (2) Foot drop, right Status: Chronic Current Visit: Yes Code(s): M21.371 - Foot drop, right foot (3) Difficulty walking Status: Chronic Current Visit: Yes Code(s): R26.2 - Difficulty in walking, not elsewhere classified (4) Other specified peripheral vascular diseases Status: Chronic Current Visit: Yes Code(s): I73.89 - Other specified peripheral vascular diseases (5) MRSA (methicillin resistant staph aureus) culture positive Status: Acute Current Visit: Yes Code(s): Z22.322 - Carrier or suspected carrier of Methicillin resistant Staphylococcus aureus (6) Colonization status Status: Acute Current Visit: Yes Code(s): Z22.9 - Carrier of infectious disease, unspecified Type of Wound Date of Service: 01/06/20 Chief Complaint: Leg ulcer right History of Wound: Mr. Choe is a 69 year old with past medical history of atrial fibrillation, peripheral arterial disease status post left lower extremity stenting and tobacco abuse presents for follow-up of right leg ulcer. He is under the care of rail car painter/sandblaster, Dr. Barrett. He relates he had successful vascular surgery intervention recently with Dr. Yarbrough and he is scheduled to follow-up on either December 29 or . He is with his daughter today. He denies fever, chill, nausea, vomiting. He underwent operating room debridement, application of advanced wound healing product, amnio fill, and application of sarah wound VAC. He denies fever, chill, nausea, vomiting, odor, loss of appetite. His wound VAC has remained intact. Progress of Wound: Stable - Physical Exam Vital Signs Temp Pulse Resp BP Pulse Ox 97 F L 62 16 155/82 H 96 01/06/20 10:36 01/06/20 10:36 01/06/20 10:36 01/06/20 10:36 12/09/19 00:15 General: Alert, Oriented x3, Cooperative, No apparent distress Extremities: No cyanosis, No edema, Capillary Refill Less than 3 Seconds, No Calf Tenderness, Diminished Peripheral Pulses Skin: Ulcer/ Wound - No purulence, erythema, streaking, odor, acute infection. Reduced adjacent edema is noted. The wound veil of Vaibhav remains intact with sutures. His adjacent skin is still hairless and atrophic Wound Measurements and Assessment WC - Nurse 1 - General Ulcer Measurement Start: 12/09/19 11:44 Freq: Status: Active Protocol: Activity Type Activity Date Activity User E-Sign Co-Sign Detail Recorded Client Recorded Date Recorded By Document 01/06/20 10:36 [facility] [id number] 01/06/20 10:43 [facility] 01/06/20 10:36 Wound Center Nurse 1 [Ulcer Assessment] #4 R Lat Lower Leg -Combined with other wound No -Current Size (cm) - Length 0.1 -Current Size (cm) - Width 0.1 -Current Size (cm) - Depth 0.1 -Total Square Cm 0.01 -Exudate Amt Small -Exudate Type Sanguineous -Texture (Denisa-wound Skin Appearance) Assessed -Moisture (Ednisa-wound Skin Appearance Assessed ) -Color (Denisa-wound Skin Appearance) Assessed -Temperature (Denisa-wound Skin No Abnormality Appearance) (Pt Warm) -Tenderness on Palpation (Denisa-wound Yes Skin Appearance) WC - Nurse 2 - General Ulcer CM Notes Start: 12/09/19 11:44 Freq: Status: Active Protocol: Activity Type Activity Date Activity User E-Sign Co-Sign Detail Recorded Client Recorded Date Recorded By Document 01/06/20 10:56 [id number] 01/06/20 10:56 01/06/20 10:56 Wound Center Nurse 2 [Procedure/Treatment] -Correct Patient No -Correct Side, Site, Position No -Correct Procedure No -Procedure Performed No -Wound/Ulcer Outcome Not Healed [See Physician Procedure note for Specifics] Pain Scale: 0-10 Numeric [Pain] -Is Patient Pain Free? Yes Musculoskeletal: No Tenderness to Palpation of Joints or Extremities, Muscle Wasting, - Neurological: Sensory exam intact to light touch and pain Psych/Mental Status: Normal Affect, Appropriate Debridement Note Post-Debridement Measurements/Treatment - Nurse 2 - General Ulcer CM Notes Start: 12/09/19 11:44 Freq: Status: Active Protocol: Activity Type Activity Date Activity User E-Sign Co-Sign Detail Recorded Client Recorded Date Recorded By Document 12/09/19 11:54 [id number] 12/09/19 12:02 Document 12/16/19 11:09 PL [id number] 12/16/19 11:14 PL Document 12/23/19 11:02 JF [id number] 12/23/19 11:07 JF Document 12/30/19 10:59 JF [id number] 12/30/19 11:00 Document 01/06/20 10:56 JF [id number] 01/06/20 10:56 12/09/19 12/16/19 12/23/19 11:54 11:09 11:02 Wound Center Nurse 2 #4 R Lat Lower Leg -Time 12:01 11:10 11:02 -Correct Patient Yes Yes Yes -Correct Side, Site, Position Yes Yes Yes -Correct Procedure Yes Yes Yes -Procedure Performed Yes Yes Yes -Type of Procedure Debridement Debridement Debridement -Clinical Debridement Subcutaneous Selective Selective -Post Debridement Size (cm) - Length 4.8 5.3 5.4 -Post Debridement Size (cm) - Width 0.7 1.3 1 -Post Debridement Size (cm) - Depth 0.8 1.7 0.9 -Total Square (cm) 3.36 6.89 5.4 -Wound/Ulcer Outcome Not Healed Not Healed Not Healed -Ulcer Cleansing Rinsed/ Rinsed/ Rinsed/ Irrigated with Irrigated with Irrigated with Saline Saline Saline -Foul Odor after Cleansing No No No -Bioengineered Tissue No No -Bleeding Controlled with Pressure Pressure Pressure -Offloading No No -Type of Offloading Surgical Shoe -Treatment Response Procedure Procedure Procedure Tolerated Well Tolerated Well Tolerated Well Pain Scale: 0-10 Numeric Is Patient Pain Free? Yes Yes Yes 12/30/19 01/06/20 10:59 10:56 Wound Center Nurse 2 #4 R Lat Lower Leg -Time 10:59 -Correct Patient Yes No -Correct Side, Site, Position Yes No -Correct Procedure Yes No -Procedure Performed Yes No -Type of Procedure Debridement -Clinical Debridement Selective -Post Debridement Size (cm) - Length 5.5 -Post Debridement Size (cm) - Width 0.6 -Post Debridement Size (cm) - Depth 0.5 -Total Square (cm) 3.30 -Wound/Ulcer Outcome Not Healed Not Healed -Ulcer Cleansing Rinsed/ Irrigated with Saline -Foul Odor after Cleansing No -Bioengineered Tissue No -Bleeding Controlled with Pressure -Offloading No -Type of Offloading -Treatment Response Procedure Tolerated Well Pain Scale: 0-10 Numeric Is Patient Pain Free? Yes Yes No debridement was completed today - The amnio fill remains intact and is incorporating with the wound veil Assessment/Plan Active Problems (Last Reviewed 01/29/19 @ 16:[address] Faraz Connolly MD) Ulcer of right lower extremity with muscle involvement without evidence of necrosis (Chronic) MRSA (methicillin resistant staph aureus) culture positive (Acute) Colonization status (Acute) Foot drop, right (Chronic) Difficulty walking (Chronic) Pain in right lower leg (Chronic) Other specified peripheral vascular diseases (Chronic) Assessment: Prior right leg ulcer with muscle exposed. ulcer contamination with MRSA, Enterobacter, anaerobic cocci. Peripheral vascular disease. Leg edema and rule out venous insufficiency. Malnutrition. Discontinued tobacco use. Walking difficulty. Pain in right limb lower. Contraction right lower extremity at ankle level. Right dropfoot Plan: Patient was carefully examined and evaluated today. His ulcer was not debrided today because the amnio fill is incorporating in. The wound veil is intact and a sarah wound VAC will be applied again today. There are no local signs of infection. Due to his recurrent wound contamination and infection history a post debridement culture was obtained last Saturday and surgery and this did demonstrate MRSA anaerobic cocci, and Enterobacter. He is given a prescription for ciprofloxacin and doxycycline and advised on proper and safe use. To monitor for side effects such as diarrhea or tendon injuries. I also recommended infectious disease referral, Dr. Baum. His labs performed previously were reviewed. To avoid soaking. I recommended wearing light compression to help control localized edema with a single layer Tubigrip. He had a recent vascular surgery intervention with Dr. Yarbrough recently. Dr. Yarbrough's operation report from 11-13-2019 was reviewed as the followin. Ultrasound-guided access retrograde left common femoral artery 2. Aortogram with bilateral iliofemoral angiogram 3. Right lower extremity angiogram catheter was placed into the anterior tibial artery for past the third order cannulation 4. Balloon angioplasty to anterior tibial artery into the popliteal 5. Balloon angioplasty of the popliteal occlusion 6. Balloon angioplasty popliteal occlusion with a drug-coated balloon and balloon angioplasty of the SFA's with stent and proximal femoral artery with the same balloon for prolonged inflation. He was advised to intermittently dangle the leg to improve arterial perfusion and this seems to also reduce his pain. I also provided him with a pain management referral for his limb pain and also history of chronic pain. He is under the management of pain specialist, Dr. Barrett. To continue nutritional supplementation. I answered all his questions. ---. 2019 macra update. Medication list and allergy list were reconciled and confirmed today.
[2020-01-08 11:02] VITALS: BP 138/80; PULSE 76; RESP 18; TEMP 36.1; BMI 27.2
== END 2020-01-08 23:59 ==
LOC: WC 11:00
PROVIDERS: Family Provider Family Medicine; PCP Family Medicine; Referring Provider Podiatrist; Visit Provider Podiatrist
DX: I73.89 Other specified peripheral vascular diseases (principal); M21.371 Foot drop, right foot; L03.115 Cellulitis of right lower limb; L97.915 Non-pressure chronic ulcer of unspecified part of right lower leg with muscle involvement without evidence of necrosis; R26.2 Difficulty in walking, not elsewhere classified; I48.91 Unspecified atrial fibrillation; Z72.0 Tobacco use; L97.812 Non-pressure chronic ulcer of other part of right lower leg with fat layer exposed; Z86.14 Personal history of Methicillin resistant Staphylococcus aureus infection; R60.0 Localized edema
CPT/HCPCS: 11042; 80053; 85025; 85652; 86140; 87070; 87075; 87077; 87186; 87205; 87640; 97597; 97607; 99212; G0463

== ENCOUNTER → 2020-01-08 14:32 | Outpatient (CLI) | payer MEDICARE, MEDICAID, SELFPAY ==
[2020-01-08 14:32] VITALS: BMI 25.2
[2020-01-08 17:25] LABS: Absolute Lymphocyte Count 2.83 X10^3/uL (0.83-4.51); Absolute Neutrophil Count 2.9 X10^3/uL (2.0-7.7); Basophil# 0.06 X10^3/uL; Basophil% 0.9 % (0-1); Eosinophil# 0.21 X10^3/uL; Eosinophils% 3.2 % (0-5); Hematocrit 44.9 % (40-54); Hemoglobin 14.2 g/dL (13.0-16.5); Lymphocyte # 2.83 X10^3/ul (4.0); Lymphocyte % 42.6 % (19-41); Mean Corp Hgb Conc 31.6 g/dL (32-36); Mean Corpuscular Hgb 28.5 pg (27.0-32.0); Mean Corpuscular Volume 90.2 fL (80-94); Monocyte# 0.65 X10^3/uL; Monocyte% 9.8 % (0-10); NRBC Flagged by Analyzer 0 % (0-5); Neutrophil # 2.88 X10^3/uL (2.7-7.7); Neutrophil % 43.3 % (47-70); Platelet Count 209 K/mm3 (150-450); RBC Distribution Width CV 15.9 % (11.6-14.6); RBC Distribution Width SD 52.9 fl (35.1-43.9); Red Blood Count 4.98 M/mm3 (4.6-6.2); White Blood Count 6.6 K/mm3 (4.4-11.0)
[2020-01-08 18:35] LABS: ALB/GLOB Ratio 0.8 RATIO (0.9-2.4); Albumin, Serum 3.6 g/dL (3.2-5.0); BUN 14 mg/dL (7-18); Globulin 4.8 g/dL (2.2-4.2); Glucose 88 mg/dL (74-106); Protein, Total 8.4 g/dL (6.4-8.2)
[2020-01-08 18:36] LABS: AST(SGOT) 20 U/L (15-37); Alanine Aminotransfer ALT/SGPT 17 U/L (16-61); Alkaline Phosphatase 89 U/L (45-117); Calcium,Total 9.1 mg/dL (8.5-10.1); Cholesterol 232 mg/dL (200); Sodium Level 137 mmol/L (136-145); Triglycerides 448 mg/dL
[2020-01-08 18:37] LABS: Anion Gap 3 (5-15); Chloride 107 mmol/L (98-107); High Density Lipoprotein 30 mg/dL; Iron Binding Capacity,Total 335 ug/dL (250-450)
[2020-01-08 18:54] LABS: EST Glomerular Filtration Rate 79 mL/min (>60); Est Glom Filt Rate - Afr Amer 96 mL/min (>60); Ferritin 31 ng/mL (26-388); Iron 138 ug/dL (65-175); T4 Free Direct 0.92 ng/dL (0.76-1.46)
== END ==
PROVIDERS: PCP Family Medicine; Referring Provider Family Medicine; Visit Provider Family Medicine
DX: I48.91 Unspecified atrial fibrillation (principal); I73.89 Other specified peripheral vascular diseases; D50.9 Iron deficiency anemia, unspecified; E06.3 Autoimmune thyroiditis; M21.371 Foot drop, right foot; L03.115 Cellulitis of right lower limb; R26.2 Difficulty in walking, not elsewhere classified; L97.915 Non-pressure chronic ulcer of unspecified part of right lower leg with muscle involvement without evidence of necrosis; L97.812 Non-pressure chronic ulcer of other part of right lower leg with fat layer exposed; R60.0 Localized edema; Z72.0 Tobacco use; Z86.14 Personal history of Methicillin resistant Staphylococcus aureus infection
CPT/HCPCS: 36415; 80053; 80061; 82728; 83540; 83550; 83735; 84439; 84443; 85025; 97607

== ENCOUNTER 2020-02-03 11:30 | Outpatient (RCR) | payer MEDICARE, MEDICAID, SELFPAY ==
[2020-01-08 14:32] VITALS: BMI 25.2
[2020-01-09 00:17] VITALS: BP 138/80; PULSE 76; RESP 18; TEMP 36.1; O2SAT 96
[2020-01-13 14:03] VITALS: BP 150/85; PULSE 78; RESP 16; TEMP 36.1; BMI 25.2
--- NOTE | 2020-01-13 14:07 | WC ---
SUTURES/ADAPTIC INTACT
--- NOTE | 2020-01-13 15:58 | PN.PCM_ITS ---
(1) Ulcer of right lower extremity with fat layer exposed Status: Chronic Current Visit: Yes Code(s): L97.912 - Non-pressure chronic ulcer of unspecified part of right lower leg with fat layer exposed (2) Colonization status Status: Acute Current Visit: Yes Code(s): Z22.9 - Carrier of infectious disease, unspecified (3) Other acquired deformities of right foot Status: Chronic Current Visit: Yes Code(s): M21.6X1 - Other acquired deformities of right foot (4) Other specified peripheral vascular diseases Status: Chronic Current Visit: Yes Code(s): I73.89 - Other specified peripheral vascular diseases (5) Delayed wound healing Status: Chronic Current Visit: Yes Code(s): T14.8XXD - Other injury of unspecified body region, subsequent encounter Type of Wound Date of Service: 01/13/20 Chief Complaint: Leg ulcer right History of Wound: Mr. Choe is a 69 year old with past medical history of atrial fibrillation, peripheral arterial disease status post left lower extremity stenting and tobacco abuse presents for follow-up of right leg ulcer. He is under the care of pipe bowl paint trimmer, Dr. Barrett. He relates he had successful vascular surgery intervention recently with Dr. Yarbrough and he is scheduled to follow-up on either December 29 or . He is with his daughter today. He denies fever, chill, nausea, vomiting. He underwent operating room debridement, application of advanced wound healing product, amnio fill, and application of sarah wound VAC. He denies fever, chill, nausea, vomiting, odor, loss of appetite. His wound VAC has remained intact. Progress of Wound: Stable - Physical Exam Vital Signs Temp Pulse Resp BP Pulse Ox 97 F L 78 16 150/85 H 96 01/13/20 14:03 01/13/20 14:03 01/13/20 14:03 01/13/20 14:03 01/09/20 00:17 General: Alert, Oriented x3, Cooperative, No apparent distress Extremities: No cyanosis, Capillary Refill Less than 3 Seconds, No Calf Tenderness, Diminished Peripheral Pulses, Edema - Mild Skin: Ulcer/ Wound - No purulence, erythema, streaking, odor, infection. The adjacent skin is hairless and atrophic. Upon Adaptic and suture removal the amnio fill is partially incorporated and there is no undermining, exposed bone, or necrosis. He has adjacent skin is friable. Wound Measurements and Assessment WC - Nurse 1 - General Ulcer Measurement Start: 01/13/20 14:02 Freq: Status: Active Protocol: Activity Type Activity Date Activity User E-Sign Co-Sign Detail Recorded Client Recorded Date Recorded By Document 01/13/20 14:03 [facility] [id number] 01/13/20 14:07 [facility] 01/13/20 14:03 Wound Center Nurse 1 [Ulcer Assessment] #4 R Lat Lower Leg -Combined with other wound No -Current Size (cm) - Length 0.1 -Current Size (cm) - Width 0.1 -Current Size (cm) - Depth 0.1 -Total Square Cm 0.01 -Texture (Denisa-wound Skin Appearance) Assessed -Moisture (Denisa-wound Skin Appearance Assessed ) -Color (Denisa-wound Skin Appearance) Assessed -Temperature (Denisa-wound Skin No Abnormality Appearance) (Pt Warm) -Tenderness on Palpation (Denisa-wound Yes Skin Appearance) WC - Nurse 2 - General Ulcer CM Notes Start: 01/13/20 14:02 Freq: Status: Active Protocol: Activity Type Activity Date Activity User E-Sign Co-Sign Detail Recorded Client Recorded Date Recorded By Document 01/13/20 14:31 [id number] 01/13/20 14:31 01/13/20 14:31 Wound Center Nurse 2 [Procedure/Treatment] -Correct Patient No -Correct Side, Site, Position No -Correct Procedure No -Procedure Performed No -Wound/Ulcer Outcome Not Healed [See Physician Procedure note for Specifics] Pain Scale: 0-10 Numeric [Pain] -Is Patient Pain Free? Yes Musculoskeletal: Muscle Wasting, - - Weakness consistent with dropfoot chronic Psych/Mental Status: Normal Affect, Appropriate Debridement Note Post-Debridement Measurements/Treatment WC - Nurse 2 - General Ulcer CM Notes Start: 01/13/20 14:02 Freq: Status: Active Protocol: Activity Type Activity Date Activity User E-Sign Co-Sign Detail Recorded Client Recorded Date Recorded By Document 01/13/20 14:31 [id number] 01/13/20 14:31 01/13/20 14:31 Wound Center Nurse 2 #4 R Lat Lower Leg -Correct Patient No -Correct Side, Site, Position No -Correct Procedure No -Procedure Performed No -Wound/Ulcer Outcome Not Healed Pain Scale: 0-10 Numeric Is Patient Pain Free? Yes Wound debrided: lateral leg Laterality: Right Type of Debridement: Selective debridement Anesthesia Used: 5% Lidocaine Gel Depth: Down to and including healthy tissue Percentage of wound debrided: 100 Instrument Used: #15 blade Tissue Removed: fibrous, devitalized tissue, biofilm, slough Severity: Fat Layer Exposed Amount of bleeding with debridement: Mild Bleeding Controlled with: Pressure Patient tolerated procedure well Assessment/Plan Active Problems (Last Reviewed 01/29/19 @ 16:[address] Faraz Connolly MD) Ulcer of right lower extremity with fat layer exposed (Chronic) Colonization status (Acute) Other acquired deformities of right foot (Chronic) Other specified peripheral vascular diseases (Chronic) Delayed wound healing (Chronic) Assessment: Prior right leg ulcer with muscle exposed. ulcer contamination with MRSA, Enterobacter, anaerobic cocci. Peripheral vascular disease. Leg edema and rule out venous insufficiency. Malnutrition. Discontinued tobacco use. Walking difficulty. Pain in right limb lower. Contraction right lower extremity at ankle level. Right dropfoot Plan: Patient was carefully examined and evaluated today. The sutures and Adaptic were removed today and the ulcer was debrided as noted in the clinical panel. The sarah wound VAC was additionally reapplied a bolster wet-to-dry d ressing. There are no local signs of infection. Due to his recurrent wound contamination and infection history a post debridement culture was obtained last Saturday and surgery and this did demonstrate MRSA anaerobic cocci, and Enterobacter. He is given a prescription for ciprofloxacin and doxycycline and advised on proper and safe use. To monitor for side effects such as diarrhea or tendon injuries. I also recommended infectious disease referral, Dr. Baum. His labs performed previously were reviewed. To avoid soaking. I recommended wearing light compression to help control localized edema with a single layer Tubigrip. He had a recent vascular surgery intervention with Dr. Yarbrough recently. Dr. Yarbrough's operation report from 11-13-2019 was reviewed as the followin. Ultrasound-guided access retrograde left common femoral artery 2. Aortogram with bilateral iliofemoral angiogram 3. Right lower extremity angiogram catheter was placed into the anterior tibial artery for past the third order cannulation 4. Balloon angioplasty to anterior tibial artery into the popliteal 5. Balloon angioplasty of the popliteal occlusion 6. Balloon angioplasty popliteal occlusion with a drug-coated balloon and balloon angioplasty of the SFA's with stent and proximal femoral artery with the same balloon for prolonged inflation. He was advised to intermittently dangle the leg to improve arterial perfusion and this seems to also reduce his pain. I also provided him with a pain management referral for his limb pain and also history of chronic pain. He is under the management of pain specialist, Dr. Barrett. To continue nutritional supplementation. I answered all his questions. ---. 2020 macra update. Medication list and allergy list were reconciled and confirmed today.
--- NOTE | 2020-01-13 16:32 | PCM.PN.ID ---
Patient Problems: Active and Suspected Problems (Last Reviewed 01/29/19 @ 16:[address] Faraz Connolly MD) Colonization status (Acute) Subjective: Feeling ok, minimal leg soreness, no redness. No fever, no n/v/d. No issues with abx. - Physical Exam Vitals/I&O's: Vital Signs Temp Pulse Resp BP Pulse Ox 97 F L 78 16 150/85 H 96 01/13/20 14:03 01/13/20 14:03 01/13/20 14:03 01/13/20 14:03 01/09/20 00:17 Oxygen Delivery Method Room Air Weight: 91.138 kg Body Mass Index (BMI) 25.2 General: Alert, Cooperative, No apparent distress Lungs: Clear to auscultation, Normal air movement Cardiovascular: Regular rate, Regular Rhythm Abdomen: Soft, Non Tender, Non-Distended Skin: Ulcer/ Wound - R brown, no redness or drainage Medical Necessity - Tobacco Use Smoking Status: Former smoker Route of nutrition/ use of supplements: [] Nutritional Intake: [] IV Site: [] [place] Catheter: [] - Assessment/Plan Antibiotics: [] Assessment/Plan: [] Active and Suspected Problems (Last Reviewed 01/29/19 @ 16:[address] Faraz Connolly MD) Colonization status (Acute) R brown infected ulcer - s/p recent I&D by Dr. Titus. Site doing well. Surg cx with rare diphtheroids. Agree with plan to complete short course of po abx. Will follow as needed, d/w Dr. Titus.
[2020-01-15 12:36] VITALS: BP 152/88; PULSE 63; RESP 18; TEMP 36.1; BMI 25.2
[2020-01-20 11:31] VITALS: BP 141/79; PULSE 62; RESP 20; TEMP 36.4; BMI 25.2
--- NOTE | 2020-01-20 21:43 | PN.PCM_ITS ---
(1) Ulcer of right lower extremity with fat layer exposed Status: Chronic Code(s): L97.912 - Non-pressure chronic ulcer of unspecified part of right lower leg with fat layer exposed (2) Other acquired deformities of right foot Status: Chronic Code(s): M21.6X1 - Other acquired deformities of right foot (3) Other specified peripheral vascular diseases Status: Chronic Code(s): I73.89 - Other specified peripheral vascular diseases (4) Delayed wound healing Status: Chronic Code(s): T14.8XXD - Other injury of unspecified body region, subsequent encounter Type of Wound Date of Service: 01/20/20 Chief Complaint: Leg ulcer right History of Wound: Mr. Choe is a 69 year old with past medical history of atrial fibrillation, peripheral arterial disease status post left lower extremity stenting and tobacco abuse presents for follow-up of right leg ulcer. He is under the care of sandblaster paint sprayer, Dr. Barrett. He relates he had successful vascular surgery intervention recently with Dr. Yarbrough and he is scheduled to follow-up on either December 29 or . He is with his daughter today. He denies fever, chill, nausea, vomiting. He underwent operating room debridement, application of advanced wound healing product, amnio fill, and application of sarah wound VAC. He denies fever, chill, nausea, vomiting, odor, loss of appetite. His wound VAC has remained intact. Progress of Wound: Stable - Physical Exam Vital Signs Temp Pulse Resp BP Pulse Ox 97.6 F L 62 20 H 141/79 H 96 01/20/20 11:31 01/20/20 11:31 01/20/20 11:31 01/20/20 11:31 01/09/20 00:17 General: Alert, Oriented x3, Cooperative Extremities: No cyanosis, Capillary Refill Less than 3 Seconds, No Calf Tender ness, Diminished Peripheral Pulses, Edema - Mild Skin: Ulcer/ Wound - No purulence, erythema, streaking, odor, infection. Granulation formation in the ulcer bed is noted decreased fibrous tissue. Adjacent skin is hairless and atrophic Wound Measurements and Assessment WC - Nurse 1 - General Ulcer Measurement Start: 01/13/20 14:02 Freq: Status: Active Protocol: Activity Type Activity Date Activity User E-Sign Co-Sign Detail Recorded Client Recorded Date Recorded By Document 01/20/20 11:31 MAREK [id number] 01/20/20 11:36 DL 01/20/20 11:31 Wound Center Nurse 1 [Ulcer Assessment] #4 R Lat Lower Leg -Current Size (cm) - Length 5.5 -Current Size (cm) - Width 1 -Current Size (cm) - Depth 0.5 -Total Square Cm 5.5 -Photo Taken No -Exudate Amt Small -Exudate Type Yellow/Green -Wound Margin Distinct, Outline Attached -Granulation Amt Small (1-33%) -Granulation Quality [place] -Necrosis Amt Large (67-100%) -Structure Exposed N/A -Texture (Denisa-wound Skin Appearance) Scarring -Moisture (Denisa-wound Skin Appearance No Abnormality ) -Color (Denisa-wound Skin Appearance) Rubor -Temperature (Denisa-wound Skin No Abnormality Appearance) (Pt Warm) -Tenderness on Palpation (Denisa-wound Yes Skin Appearance) -Ulcer Cleansing Rinsed/ Irrigated with Saline -Foul Odor after Cleansing No -Anesthetic Used 4% Lidocaine Solution WC - Nurse 2 - General Ulcer CM Notes Start: 01/13/20 14:02 Freq: Status: Active Protocol: Activity Type Activity Date Activity User E-Sign Co-Sign Detail Recorded Client Recorded Date Recorded By Document 01/20/20 12:00 [id number] 01/20/20 12:01 01/20/20 12:00 Wound Center Nurse 2 [Procedure/Treatment] -Time 12:00 -Correct Patient Yes -Correct Side, Site, Position Yes -Correct Procedure Yes -Procedure Performed Yes -Type of Procedure Debridement -Clinical Debridement Subcutaneous -Post Debridement Size (cm) - Length 5.6 -Post Debridement Size (cm) - Width 1.1 -Post Debridement Size (cm) - Depth 0.5 -Total Square (cm) 6.16 -Wound/Ulcer Outcome Not Healed -Ulcer Cleansing Rinsed/ Irrigated with Saline -Foul Odor after Cleansing No -Bioengineered Tissue No -Bleeding Controlled with Pressure -Offloading No -Treatment Response Procedure Tolerated Well [See Physician Procedure note for Specifics] Pain Scale: 0-10 Numeric [Pain] -Is Patient Pain Free? Yes Musculoskeletal: No Tenderness to Palpation of Joints or Extremities, Muscle Wasting Neurological: Sensory exam intact to light touch and pain Psych/Mental Status: Normal Affect, Appropriate Debridement Note Post-Debridement Measurements/Treatment WC - Nurse 2 - General Ulcer CM Notes Start: 01/13/20 14:02 Freq: Status: Active Protocol: Activity Type Activity Date Activity User E-Sign Co-Sign Detail Recorded Client Recorded Date Recorded By Document 01/13/20 14:31 BLANKA [id number] 01/13/20 14:31 Document 01/20/20 12:00 BLANKA [id number] 01/20/20 12:01 01/13/20 01/20/20 14:31 12:00 Wound Center Nurse 2 #4 R Lat Lower Leg -Time 12:00 -Correct Patient No Yes -Correct Side, Site, Position No Yes -Correct Procedure No Yes -Procedure Performed No Yes -Type of Procedure Debridement -Clinical Debridement Subcutaneous -Post Debridement Size (cm) - Length 5.6 -Post Debridement Size (cm) - Width 1.1 -Post Debridement Size (cm) - Depth 0.5 -Total Square (cm) 6.16 -Wound/Ulcer Outcome Not Healed Not Healed -Ulcer Cleansing Rinsed/ Irrigated with Saline -Foul Odor after Cleansing No -Bioengineered Tissue No -Bleeding Controlled with Pressure -Offloading No -Treatment Response Procedure Tolerated Well Pain Scale: 0-10 Numeric Is Patient Pain Free? Yes Yes Wound debrided: lateral leg Laterality: Right Type of Debridement: Excisional debridement Anesthesia Used: 5% Lidocaine Gel Depth: in the subcutaneous layer Percentage of wound debrided: 100 Instrument Used: #15 blade Tissue Removed: fibrous, devitalized subcutaneous, biofilm, slough Severity: Fat Layer Exposed Amount of bleeding with debridement: Mild Bleeding Controlled with: Pressure Patient tolerated procedure well Assessment/Plan Assessment: Prior right leg ulcer with muscle exposed. ulcer contamination with MRSA, Enterobacter, anaerobic cocci -- now resolved. Peripheral vascular disease. Leg edema and rule out venous insufficiency. Malnutrition. Discontinued tobacco use. Walking difficulty. Pain in right limb lower. Contraction right lower extremity at ankle level. Right dropfoot Plan: Patient was carefully examined and evaluated today. The sarah wound VAC was additionally reapplied a bolster wet-to-dry dressing. There are no local signs of infection. Due to his recurrent wound contamination and infection history a post debridement culture was obtained last Saturday and surgery and this did demonstrate MRSA anaerobic cocci, and Enterobacter. He completed a prescription for ciprofloxacin and doxycycline. I also recommended infectious disease referral, Dr. Baum. This was already completed. His labs performed previously were reviewed. To avoid soaking. I recommended wearing light compression to help control localized edema with a single layer Tubigrip. He had a recent vascular surgery intervention with Dr. Yarbrough recently. Dr. Yarbrough's operation report from 11-13-2019 was reviewed as the followin. Ultrasound-guided access retrograde left common femoral artery 2. Aortogram with bilateral iliofemoral angiogram 3. Right lower extremity angiogram catheter was placed into the anterior tibial artery for past the third order cannulation 4. Balloon angioplasty to anterior tibial artery into the popliteal 5. Balloon angioplasty of the popliteal occlusion 6. Balloon angioplasty popliteal occlusion with a drug-coated balloon and balloon angioplasty of the SFA's with stent and proximal femoral artery with the same balloon for prolonged inflation. He was advised to intermittently dangle the leg to improve arterial perfusion and this seems to also reduce his pain. I also provided him with a pain management referral for his limb pain and also history of chronic pain. He is under the management of pain specialist, Dr. Barrett. To continue nutritional supplementation. I answered all his questions. ---. 2019 macra update. Medication list and allergy list were reconciled and confirmed today.
[2020-01-27 11:24] VITALS: BP 146/72; PULSE 60; RESP 20; TEMP 36.3; BMI 25.2
--- NOTE | 2020-01-27 16:04 | PN.PCM_ITS ---
(1) Ulcer of right lower extremity with fat layer exposed Status: Chronic Current Visit: Yes Code(s): L97.912 - Non-pressure chronic ulcer of unspecified part of right lower leg with fat layer exposed (2) Other acquired deformities of right foot Status: Chronic Current Visit: Yes Code(s): M21.6X1 - Other acquired deformities of right foot (3) Other specified peripheral vascular diseases Status: Chronic Current Visit: Yes Code(s): I73.89 - Other specified peripheral vascular diseases (4) Delayed wound healing Status: Chronic Current Visit: Yes Code(s): T14.8XXD - Other injury of unspecified body region, subsequent encounter Type of Wound Date of Service: 01/27/20 Chief Complaint: Leg ulcer right History of Wound: Mr. Choe is a 69 year old with past medical history of atrial fibrillation, peripheral arterial disease status post left lower extremity stenting and tobacco abuse presents for follow-up of right leg ulcer. He is under the care of interior painter, Dr. Barrett. He relates he had successful vascular surgery intervention with Dr. Yarbrough. He is with his daughter today. He denies fever, chill, nausea, vomiting. He underwent operating room debridement, application of advanced wound healing product, amnio fill, and application of sarah wound VAC on 01/01/2020. He denies fever, chill, nausea, vomiting, odor, loss of appetite. His wound VAC has remained intact. Progress of Wound: Improving with delays - Physical Exam Vital Signs Temp Pulse Resp BP Pulse Ox 97.4 F L 60 20 H 146/72 H 96 01/27/20 11:24 01/27/20 11:24 01/27/20 11:24 01/27/20 11:24 01/09/20 00:17 General: Alert, Oriented x3, Cooperative, No apparent distress HEENT: Atraumatic Extremities: No cyanosis, Capillary Refill Less than 3 Seconds, No Calf Tenderness - Negative Yen and Watts sign, Diminished Peripheral Pulses, Edema - Nearly diminished, Tenderness - Tenderness with ulcer manipulation, - - Dropfoot limb weakness consistent with prior visits. Hallux amputation right Skin: Ulcer/ Wound - No purulence, erythema, streaking, odor, infection. The ulcer bed has some advancement of granulation tissue. The adjacent skin is atrophic and very hairless Wound Measurements and Assessment WC - Nurse 1 - General Ulcer Measurement Start: 01/13/20 14:02 Freq: Status: Active Protocol: Activity Type Activity Date Activity User E-Sign Co-Sign Detail Recorded Client Recorded Date Recorded By Document 01/27/20 11:24 MAREK [id number] 01/27/20 11:32 DL 01/27/20 11:24 Wound Center Nurse 1 [Ulcer Assessment] #4 R Lat Lower Leg -Current Size (cm) - Length 5 -Current Size (cm) - Width 1 -Current Size (cm) - Depth 0.5 -Total Square Cm 5 -Photo Taken Yes -Exudate Amt Medium -Exudate Type Serosanguineous -Wound Margin Thickened & Rolled Under -Granulation Amt Small (1-33%) -Granulation Quality [place] -Necrosis Amt Large (67-100%) -Necrotic Tissue Type Adherent Slough -Structure Exposed N/A -Texture (Denisa-wound Skin Appearance) Scarring -Moisture (Denisa-wound Skin Appearance No Abnormality ) -Color (Denisa-wound Skin Appearance) No Abnormality -Temperature (Denisa-wound Skin No Abnormality Appearance) (Pt Warm) -Tenderness on Palpation (Denisa-wound No Skin Appearance) -Ulcer Cleansing Wound Cleanser -Foul Odor after Cleansing No -Anesthetic Used 4% Lidocaine Solution,5% Lidocaine Gel - Nurse 2 - General Ulcer CM Notes Start: 01/26/20 19:39 Freq: Status: Active Protocol: Activity Type Activity Date Activity User E-Sign Co-Sign Detail Recorded Client Recorded Date Recorded By Document 01/27/20 11:42 BLANKA [id number] 01/27/20 11:45 01/27/20 11:42 Wound Center Nurse 2 [Procedure/Treatment] -Time 11:43 -Correct Patient Yes -Correct Side, Site, Position Yes -Correct Procedure Yes -Procedure Performed Yes -Type of Procedure Debridement -Clinical Debridement Subcutaneous -Tissue Removed Subcutaneous -Post Debridement (cm) - Length 5.1 -Post Debridement (cm) - Width 1 -Post Debridement (cm) - Depth 0.5 -Total Square (Post) (cm) 5.1 -Area of Debridement (cm) - Length 5.1 -Area of Debridement (cm) - Width 1 -Total Square (Area) (cm) 5.1 -Tunneling No -Undermining/Tunneling No -Circular Undermining No -Wound/Ulcer Outcome Not Healed -Ulcer Cleansing Rinsed/ Irrigated with Saline -Foul Odor after Cleansing No -Bioengineered Tissue No -Bleeding Controlled with Pressure -Offloading No -Treatment Response Procedure Tolerated Well -Debridement - Subq, 1st 20sq cm Yes [See Physician Procedure note for Specifics] Pain Scale: 0-10 Numeric [Pain] -Is Patient Pain Free? Yes - Nurse 3 - General Ulcer D/C NN Start: 01/26/20 19:39 Freq: Status: Active Protocol: Activity Type Activity Date Activity User E-Sign Co-Sign Detail Recorded Client Recorded Date Recorded By Document 01/27/20 12:08 RB [id number] 01/27/20 12:13 RB 01/27/20 12:08 Wound Care Nurse 3 [Wound Dressing] #4 R Lat Lower Leg -Ulcer Cleansing Rinsed/ Irrigated with Saline -Primary Dressing Applied Promogran -Other Dressing promogran -Other Covering saline moistened gauze -NPWT Application Charge ($) NPWT </= 50 sq cm (disp) -Promogran 1 Teaching: Wound Center [Wound Center Education] (Items with an * have Printed Materials Available- Please identify what is given to patient under the Teaching materials given to patient and caregiver Section. wound vac -Person Taught Patient -Teaching Method Discussion -Response to teaching Verbalize understanding - Visit Discharge [Visit Discharge Information] -Discharge Condition Stable -Ambulatory Status Ambulatory -Transportation Private Auto -Medication Reconcilliation completed No & provided to patient/care provider -Clinical Summary of Care Provided Yes Musculoskeletal: Muscle Wasting, Tenderness Neurological: Sensory exam intact to light touch and pain Psych/Mental Status: Normal Affect, Appropriate Debridement Note Post-Debridement Measurements/Treatment - Nurse 2 - General Ulcer CM Notes Start: 01/26/20 19:39 Freq: Status: Active Protocol: Activity Type Activity Date Activity User E-Sign Co-Sign Detail Recorded Client Recorded Date Recorded By Document 01/27/20 11:42 [id number] 01/27/20 11:45 BLANKA 01/27/20 11:42 Wound Center Nurse 2 #4 R Lat Lower Leg -Time 11:43 -Correct Patient Yes -Correct Side, Site, Position Yes -Correct Procedure Yes -Procedure Performed Yes -Type of Procedure Debridement -Clinical Debridement Subcutaneous -Tissue Removed Subcutaneous -Post Debridement (cm) - Length 5.1 -Post Debridement (cm) - Width 1 -Post Debridement (cm) - Depth 0.5 -Total Square (Post) (cm) 5.1 -Area of Debridement (cm) - Length 5.1 -Area of Debridement (cm) - Width 1 -Total Square (Area) (cm) 5.1 -Tunneling No -Undermining/Tunneling No -Circular Undermining No -Wound/Ulcer Outcome Not Healed -Ulcer Cleansing Rinsed/ Irrigated with Saline -Foul Odor after Cleansing No -Bioengineered Tissue No -Bleeding Controlled with Pressure -Offloading No -Treatment Response Procedure Tolerated Well -Debridement - Subq, 1st 20sq cm Yes Pain Scale: 0-10 Numeric Is Patient Pain Free? Yes - Nurse 3 - General Ulcer D/C NN Start: 01/26/20 19:39 Freq: Status: Active Protocol: Activity Type Activity Date Activity User E-Sign Co-Sign Detail Recorded Client Recorded Date Recorded By Document 01/27/20 12:08 JESSE [id number] 01/27/20 12:13 JESSE 01/27/20 12:08 Wound Care Nurse 3 #4 R Lat Lower Leg -Ulcer Cleansing Rinsed/ Irrigated with Saline -Primary Dressing Applied Promogran -Other Dressing promogran -Other Covering saline moistened gauze -NPWT Application Charge ($) NPWT </= 50 sq cm (disp) -Promogran 1 Teaching: Wound Center wound vac -Person Taught Patient -Teaching Method Discussion -Response to teaching Verbalize understanding WC - Visit Discharge Discharge Condition Stable Ambulatory Status Ambulatory Transportation Private Auto Medication Reconcilliation completed & No provided to patient/care provider Clinical Summary of Care Provided Yes Wound debrided: leg Laterality: Right Type of Debridement: Excisional debridement Anesthesia Used: 5% Lidocaine Gel Depth: in the subcutaneous layer Percentage of wound debrided: 100 Instrument Used: #15 blade Tissue Removed: fibrous, devitalized subcutaneous, biofilm, slough Severity: Fat Layer Exposed Amount of bleeding with debridement: Mild Bleeding Controlled with: Pressure Patient tolerated procedure well Assessment/Plan Active Problems (Last Reviewed 01/29/19 @ 16:[address] Faraz Connolly MD) Ulcer of right lower extremity with fat layer exposed (Chronic) Other acquired deformities of right foot (Chronic) Other specified peripheral vascular diseases (Chronic) Delayed wound healing (Chronic) Assessment: Prior right leg ulcer with muscle exposed. ulcer contamination with MRSA, Enterobacter, anaerobic cocci -- now resolved. Peripheral vascular disease. Leg edema and rule out venous insufficiency. Malnutrition. Discontinued tobacco use. Walking difficulty. Pain in right limb lower. Contraction right lower extremity at ankle level. Right dropfoot Plan: Patient was carefully examined and evaluated today. Subcutaneous excisional debridement was performed as noted in the clinical panel. The sarah wound VAC was additionally reapplied and [place] with sarah wound VAC with a bolster gauze was included. There are no local signs of infection. Due to his recurrent wound contamination and infection history a post debridement culture was obtained previously during surgery and this did demonstrate MRSA anaerobic cocci, and Enterobacter. He completed a prescription for ciprofloxacin and doxycycline. I also recommended infectious disease referral, Dr. Baum. This was already completed. He has maintain and improve clinical status. His labs performed previously were reviewed. To avoid soaking. I recommended wearing light compression to help control localized edema with a single layer Tubigrip. He had a recent vascular surgery intervention with Dr. Yarbrough recently. Dr. Yarbrough's operation report from 11-13-2019 was reviewed as the followin. Ultrasound-guided access retrograde left common femoral artery 2. Aortogram with bilateral iliofemoral angiogram 3. Right lower extremity angiogram catheter was placed into the anterior tibial artery for past the third order cannulation 4. Balloon angioplasty to anterior tibial artery into the popliteal 5. Balloon angioplasty of the popliteal occlusion 6. Balloon angioplasty popliteal occlusion with a drug-coated balloon and balloon angioplasty of the SFA's with stent and proximal femoral artery with the same balloon for prolonged inflation. He was advised to intermittently dangle the leg to improve arterial perfusion and this seems to also reduce his pain. I also provided him with a pain management referral for his limb pain and also history of chronic pain. He is under the management of pain specialist, Dr. Barrett. To continue nutritional supplementation. I answered all his questions. ---. 2019 macra update. Medication list and allergy list were reconciled and confirmed to day.
[2020-01-29 13:43] VITALS: BP 133/85; PULSE 69; RESP 18; TEMP 36.5; BMI 25.2
[2020-02-03 11:52] VITALS: BP 144/63; PULSE 62; RESP 18; TEMP 36.1; BMI 25.2
--- NOTE | 2020-02-03 13:16 | PN.PCM_ITS ---
(1) Ulcer of right lower extremity with fat layer exposed Status: Chronic Current Visit: Yes Code(s): L97.912 - Non-pressure chronic ulcer of unspecified part of right lower leg with fat layer exposed (2) Other acquired deformities of right foot Status: Chronic Current Visit: Yes Code(s): M21.6X1 - Other acquired deformities of right foot (3) Other specified peripheral vascular diseases Status: Chronic Current Visit: Yes Code(s): I73.89 - Other specified peripheral vascular diseases (4) Delayed wound healing Status: Chronic Current Visit: Yes Code(s): T14.8XXD - Other injury of unspecified body region, subsequent encounter Type of Wound Date of Service: 02/03/20 Chief Complaint: Leg ulcer right History of Wound: Mr. Choe is a 69 year old with past medical history of atrial fibrillation, peripheral arterial disease status post left lower extremity stenting and tobacco abuse presents for follow-up of right leg ulcer. He is under the care of ceramic painter, Dr. Barrett. He relates he had successful vascular surgery intervention with Dr. Yarbrough. He is with his daughter today. He denies fever, chill, nausea, vomiting. He underwent operating room debridement, application of advanced wound healing product, amnio fill, and application of sarah wound VAC on 01/01/2020. He denies fever, chill, nausea, vomiting, odor, loss of appetite. His daughter called in and reported wound VAC irritation this past Saturday. At that time he was advised to transition into [employer] . He is tried with moistened saline gauze and without and relates there is some pink tissue formation. Progress of Wound: Improving with delays - Physical Exam Vital Signs Temp Pulse Resp BP Pulse Ox 97 F L 62 18 144/63 H 96 02/03/20 11:52 02/03/20 11:52 02/03/20 11:52 02/03/20 11:52 01/09/20 00:17 General: Alert, Oriented x3, Cooperative HEENT: Atraumatic Extremities: No cyanosis, No edema, Capillary Refill Less than 3 Seconds, Diminished Peripheral Pulses, Tenderness - Tenderness with ulcer manipulation and debridement, - - Dropfoot right lower extremity unchanged compared to prior visits Skin: Ulcer/ Wound - No purulence, erythema, streaking, odor, or infection. There is no denisa-ulcer inflammation. There is some granular tissue progression to the posterior wound margin. There is no bone exposure Wound Measurements and Assessment WC - Nurse 1 - General Ulcer Measurement Start: 01/13/20 14:02 Freq: Status: Active Protocol: Activity Type Activity Date Activity User E-Sign Co-Sign Detail Recorded Client Recorded Date Recorded By Document 02/03/20 11:52 RB [id number] 02/03/20 11:55 RB 02/03/20 11:52 Wound Center Nurse 1 [Ulcer Assessment] #4 R Lat Lower Leg -Combined with other wound No -Current Size (cm) - Length 5.7 -Current Size (cm) - Width 1.4 -Current Size (cm) - Depth 0.7 -Total Square Cm 7.98 -Tunneling No -Undermining/Tunneling No -Circular Undermining No -Exudate Amt Small -Exudate Type Serosanguineous -Wound Margin Thickened & Rolled Under -Granulation Amt Medium (34-66%) -Granulation Quality [place] -Slough/Fibrin Yes -Necrosis Amt Small (1-33%) -Necrotic Tissue Type Adherent Slough -Structure Exposed N/A -Texture (Denisa-wound Skin Appearance) Assessed -Moisture (Denisa-wound Skin Appearance Assessed ) -Color (Denisa-wound Skin Appearance) Assessed -Temperature (Denisa-wound Skin No Abnormality Appearance) (Pt Warm) -Tenderness on Palpation (Denisa-wound No Skin Appearance) -Ulcer Cleansing Wound Cleanser -Foul Odor after Cleansing No -Anesthetic Used 4% Lidocaine Solution [Edema Assessment] -Lower Limb Edema Present Yes -Right Calf (cm) 33.3 -Right Ankle (cm) 24 - Nurse 2 - General Ulcer CM Notes Start: 01/26/20 19:39 Freq: Status: Active Protocol: Activity Type Activity Date Activity User E-Sign Co-Sign Detail Recorded Client Recorded Date Recorded By Document 02/03/20 12:09 [id number] 02/03/20 12:11 02/03/20 12:09 Wound Center Nurse 2 [Procedure/Treatment] #4 R Lat Lower Leg -Time 12:09 -Correct Patient Yes -Correct Side, Site, Position Yes -Correct Procedure Yes -Procedure Performed Yes -Type of Procedure Debridement -Clinical Debridement Subcutaneous -Tissue Removed Subcutaneous -Post Debridement (cm) - Length 5.8 -Post Debridement (cm) - Width 1.5 -Post Debridement (cm) - Depth 0.5 -Total Square (Post) (cm) 8.70 -Area of Debridement (cm) - Length 5.8 -Area of Debridement (cm) - Width 1.5 -Total Square (Area) (cm) 8.70 -Tunneling No -Undermining/Tunneling No -Circular Undermining No -Wound/Ulcer Outcome Not Healed -Ulcer Cleansing Rinsed/ Irrigated with Saline -Foul Odor after Cleansing No -Bioengineered Tissue No -Bleeding Controlled with Pressure -Offloading No -Treatment Response Procedure Tolerated Well -Debridement - Subq, 1st 20sq cm Yes [See Physician Procedure note for Specifics] - Nurse 3 - General Ulcer D/C NN Start: 01/26/20 19:39 Freq: Status: Active Protocol: Activity Type Activity Date Activity User E-Sign Co-Sign Detail Recorded Client Recorded Date Recorded By Document 02/03/20 12:27 DL [id number] 02/03/20 12:29 DL 02/03/20 12:27 Wound Care Nurse 3 [Wound Dressing] #4 R Lat Lower Leg -Ulcer Cleansing Rinsed/ Irrigated with Saline -Foul Odor after Cleansing No -Primary Dressing Applied Aquacel AG 4x4 -Primary Dressing Covered/Secured Dry Gauze & with Roll Gauze, Secured with Tape -Aquacel AG 4x4 1 [Post Procedure Tolerated] -Treatment Response Procedure Tolerated Well Pain Scale: 0-10 Numeric [Pain] -Is Patient Pain Free? Yes - Visit Discharge [Visit Discharge Information] -Discharge Condition Stable -Ambulatory Status Ambulatory -Transportation Private Auto Musculoskeletal: No Tenderness to Palpation of Joints or Extremities, Muscle Wasting Neurological: Sensory exam intact to light touch and pain Psych/Mental Status: Normal Affect, Appropriate Debridement Note Post-Debridement Measurements/Treatment - Nurse 2 - General Ulcer CM Notes Start: 01/26/20 19:39 Freq: Status: Active Protocol: Activity Type Activity Date Activity User E-Sign Co-Sign Detail Recorded Client Recorded Date Recorded By Document 01/27/20 11:42 [id number] 01/27/20 11:45 Document 02/03/20 12:09 [id number] 02/03/20 12:11 01/27/20 02/03/20 11:42 12:09 Wound Center Nurse 2 #4 R Lat Lower Leg -Time 11:43 12:09 -Correct Patient Yes Yes -Correct Side, Site, Position Yes Yes -Correct Procedure Yes Yes -Procedure Performed Yes Yes -Type of Procedure Debridement Debridement -Clinical Debridement Subcutaneous Subcutaneous -Tissue Removed Subcutaneous Subcutaneous -Post Debridement (cm) - Length 5.1 5.8 -Post Debridement (cm) - Width 1 1.5 -Post Debridement (cm) - Depth 0.5 0.5 -Total Square (Post) (cm) 5.1 8.70 -Area of Debridement (cm) - Length 5.1 5.8 -Area of Debridement (cm) - Width 1 1.5 -Total Square (Area) (cm) 5.1 8.70 -Tunneling No No -Undermining/Tunneling No No -Circular Undermining No No -Wound/Ulcer Outcome Not Healed Not Healed -Ulcer Cleansing Rinsed/ Rinsed/ Irrigated with Irrigated with Saline Saline -Foul Odor after Cleansing No No -Bioengineered Tissue No No -Bleeding Controlled with Pressure Pressure -Offloading No No -Treatment Response Procedure Procedure Tolerated Well Tolerated Well -Debridement - Subq, 1st 20sq cm Yes Yes Pain Scale: 0-10 Numeric Is Patient Pain Free? Yes WC - Nurse 3 - General Ulcer D/C NN Start: 01/26/20 19:39 Freq: Status: Active Protocol: Activity Type Activity Date Activity User E-Sign Co-Sign Detail Recorded Client Recorded Date Recorded By Document 01/27/20 12:08 RB [id number] 01/27/20 12:13 RB Document 01/29/20 13:43 RB [id number] 01/29/20 13:47 RB Document 02/03/20 12:27 DL [id number] 02/03/20 12:29 DL 01/27/20 01/29/20 02/03/20 12:08 13:43 12:27 Wound Care Nurse 3 #4 R Lat Lower Leg -Ulcer Cleansing Rinsed/ Rinsed/ Rinsed/ Irrigated with Irrigated with Irrigated with Saline Saline Saline -Foul Odor after Cleansing No -Primary Dressing Applied Promogran -Primary Dressing Applied Promogran Aquacel AG 4x4 [place] -Other Dressing promogran boisted with moistened gauze -Primary Dressing Covered/Secured with Dry Gauze & Roll Gauze, Secured with Tape -Other Covering saline moistened gauze -NPWT Application Charge ($) NPWT </= 50 sq NPWT </= 50 sq cm (disp) cm (disp) -Aquacel AG 4x4 1 -Promogran 1 -Promogran [place] 1 Treatment Response Procedure Procedure Tolerated Well Tolerated Well Pain Scale: 0-10 Numeric Is Patient Pain Free? Yes Yes Teaching: Wound Center wound vac -Person Taught Patient -Teaching Method Discussion -Response to teaching Verbalize understanding WC - Visit Discharge Discharge Condition Stable Stable Stable Ambulatory Status Ambulatory Ambulatory Ambulatory Transportation Private Auto Private Auto Private Auto Medication Reconcilliation completed & No No provided to patient/care provider Clinical Summary of Care Provided Yes Yes Wound debrided: lateral leg Laterality: Right Type of Debridement: Excisional debridement Anesthesia Used: 5% Lidocaine Gel Depth: in the subcutaneous layer Percentage of wound debrided: 100 Instrument Used: #15 blade Tissue Removed: fibrous, devitalized subcutaneous, biofilm, slough Severity: Fat Layer Exposed Amount of bleeding with debridement: Mild Bleeding Controlled with: Pressure Patient tolerated procedure well Assessment/Plan Active Problems (Last Reviewed 01/29/19 @ 16:[address] Faraz Connolly MD) Ulcer of right lower extremity with fat layer exposed (Chronic) Other acquired deformities of right foot (Chronic) Other specified peripheral vascular diseases (Chronic) Delayed wound healing (Chronic) Assessment: Prior right leg ulcer with muscle exposed. ulcer contamination with MRSA, Enterobacter, anaerobic cocci -- now resolved. Peripheral vascular disease. Leg edema and rule out venous insufficiency. Malnutrition. Discontinued tobacco use. Walking difficulty. Pain in right limb lower. Contraction right lower extremity at ankle level. Right dropfoot Plan: Patient was carefully examined and evaluated today. Subcutaneous excisional debridement was performed as noted in the clinical panel. He will continue to change the dressing daily with Aquacel Ag and the wound VAC will be held this upcoming week. We discussed the benefits of the wound VAC and this will be reconsidered again next Saturday. There are no local signs of infection. Due to his recurrent wound contamination and infection history, a post debridement culture was obtained previously during surgery and this did demonstrate MRSA, anaerobic cocci, and Enterobacter. He completed a prescription for ciprofloxacin and doxycycline. I also recommended infectious disease referral, Dr. Bamu. This was already completed. He has maintained an improved clinical status. His labs performed previously were reviewed. To avoid soaking. I recommended wearing light compression to help control localized edema with a single layer Tubigrip. He had a recent vascular surgery intervention with Dr. Yarbrough recently. Dr. Yarbrough's operation report from 11-13-2019 was reviewed as the followin. Ultrasound-guided access retrograde left common femoral artery 2. Aortogram with bilateral iliofemoral angiogram 3. Right lower extremity angiogram catheter was placed into the anterior tibial artery for past the third order cannulation 4. Balloon angioplasty to anterior tibial artery into the popliteal 5. Balloon angioplasty of the popliteal occlusion 6. Balloon angioplasty popliteal occlusion with a drug-coated balloon and balloon angioplasty of the SFA's with stent and proximal femoral artery with the same balloon for prolonged inflation. He was advised to intermittently dangle the leg to improve arterial perfusion and this seems to also reduce his pain. I also provided him with a pain management referral for his limb pain and also history of chronic pain. He is under the management of pain specialist, Dr. Barrett. To continue nutritional supplementation. I answered all his questions. ---. 2019 macra update. Medication list and allergy list were reconciled and confirmed today.
== END 2020-02-08 23:59 ==
LOC: WC 11:30
PROVIDERS: Family Provider Family Medicine; PCP Family Medicine; Referring Provider Podiatrist; Visit Provider Podiatrist
DX: I73.89 Other specified peripheral vascular diseases (principal); L97.812 Non-pressure chronic ulcer of other part of right lower leg with fat layer exposed; M21.6X1 Other acquired deformities of right foot; I48.91 Unspecified atrial fibrillation; M21.371 Foot drop, right foot; R26.2 Difficulty in walking, not elsewhere classified; R60.0 Localized edema; Z86.14 Personal history of Methicillin resistant Staphylococcus aureus infection; M79.604 Pain in right leg; Z87.891 Personal history of nicotine dependence
CPT/HCPCS: 11042; 97607

== ENCOUNTER → 2020-02-16 16:38 | Outpatient (CLI) | payer MEDICARE, MEDICAID, SELFPAY ==
[2020-02-10 11:40] VITALS: BMI 25.2
[2020-02-16 18:13] LABS: Amphetamine Urine VISTA NEGATIVE (<1000 ng/mL); Barbiturate Urine VISTA NEGATIVE (< 200 ng/mL); Benzodiazepine Urine VISTA NEGATIVE (< 200 ng/mL); Cocaine Urine VISTA NEGATIVE (< 300 ng/mL); Ecstacy Urine VISTA NEGATIVE (< 500 ng/mL); Methadone Urine VISTA NEGATIVE (< 300 ng/mL); PCP Urine VISTA NEGATIVE (< 25 ng/mL); THC Urine VISTA NEGATIVE (< 50 ng/mL); Vista UDS pH Range 5
== END ==
PROVIDERS: PCP Family Medicine; Referring Provider Anesthesiology Pain Medicine; Visit Provider Anesthesiology Pain Medicine
DX: F11.20 Opioid dependence, uncomplicated (principal)
CPT/HCPCS: 80307

== ENCOUNTER 2020-03-09 14:30 | Outpatient (RCR) | payer MEDICARE, MEDICAID, SELFPAY ==
[2020-02-09 00:23] VITALS: BP 144/63; PULSE 62; RESP 18; TEMP 36.1; O2SAT 96
[2020-02-10 11:40] VITALS: BP 149/78; PULSE 71; RESP 18; TEMP 36.6; BMI 25.2
[2020-02-10 16:18] LABS: M R Staph aureus DNA By PCR Negative (Negative); Probe Check PASS; Specimen Processing Control PASS; Staph aureus DNA By PCR NEGATIVE (Negative)
--- NOTE | 2020-02-10 18:02 | PN.PCM_ITS ---
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 Choe is a 69 year old with past medical history of atrial fibrillation, peripheral arterial disease status post left lower extremity stenting and tobacco abuse presents for follow-up of right leg ulcer. He is under the care of automotive paint technician, Dr. Barrett. He relates he had successful vascular surgery intervention with Dr. Yarbrough. He is with his daughter today. He denies fever, chill, nausea, vomiting. He underwent operating room debridement, application of advanced wound healing product, amnio fill, and application of sarah wound VAC on 01/01/2020. He denies fever, chill, nausea, vomiting, odor, loss of appetite. He has been using Aquacel Ag. He has had increased pain to the ulcer site. There is not distinct redness however there is some inflammation. He does not want to proceed forward with wound VAC use. Progress of Wound: Stable - Physical Exam Vital Signs Temp Pulse Resp BP Pulse Ox 97.8 F 71 18 149/78 H 96 02/10/20 11:40 02/10/20 11:40 02/10/20 11:40 02/10/20 11:40 02/09/20 00:23 General: Alert, Oriented x3, Cooperative, No apparent distress HEENT: Atraumatic Extremities: No cyanosis, Capillary Refill Less than 3 Seconds, No Calf Tenderne ss, Diminished Peripheral Pulses, Edema Skin: Ulcer/ Wound - No purulence, erythema, streaking, odor, necrosis. There is subtle denisa-ulcer inflammation changes with edema and increased pain on palpation. No bogginess or fluctuance. His adjacent skin is hairless and atrophic. There is no tunneling noted to the ulcer site the ulcer bed is pale granular with some interspersed fibrous tissue. No muscle or bone is seen Wound Measurements and Assessment WC - Nurse 1 - General Ulcer Measurement Start: 02/10/20 11:40 Freq: Status: Active Protocol: Activity Type Activity Date Activity User E-Sign Co-Sign Detail Recorded Client Recorded Date Recorded By Document 02/10/20 11:40 [email or web address] [id number] 02/10/20 11:47 [email or web address] 02/10/20 11:40 Wound Center Nurse 1 [Ulcer Assessment] #4 R Lat Lower Leg -Current Size (cm) - Length 5.8 -Current Size (cm) - Width 1.6 -Current Size (cm) - Depth 0.6 -Total Square Cm 9.28 -Photo Taken No -Exudate Amt Medium -Exudate Type Serosanguineous -Wound Margin Distinct, Outline Attached -Granulation Amt Small (1-33%) -Granulation Quality Red -Necrosis Amt Large (67-100%) -Necrotic Tissue Type Adherent Slough -Structure Exposed N/A -Texture (Denisa-wound Skin Appearance) Scarring -Color (Denisa-wound Skin Appearance) Erythema,Rubor -Temperature (Denisa-wound Skin No Abnormality Appearance) (Pt Warm) -Tenderness on Palpation (Denisa-wound No Skin Appearance) -Ulcer Cleansing Rinsed/ Irrigated with Saline -Anesthetic Used 4% Lidocaine Solution,5% Lidocaine Gel WC - Nurse 2 - General Ulcer CM Notes Start: 02/10/20 11:40 Freq: Status: Active Protocol: Activity Type Activity Date Activity User E-Sign Co-Sign Detail Recorded Client Recorded Date Recorded By Document 02/10/20 11:54 [email or web address] [id number] 02/10/20 12:02 02/10/20 11:54 Wound Center Nurse 2 [Procedure/Treatment] -Time 11:55 -Correct Patient Yes -Correct Side, Site, Position Yes -Correct Procedure Yes -Procedure Performed Yes -Type of Procedure Debridement -Clinical Debridement Epidermis / Dermis -Tissue Removed Dermis,Slough, Non-viable tissue -Post Debridement (cm) - Length 5.8 -Post Debridement (cm) - Width 1.6 -Post Debridement (cm) - Depth 0.6 -Total Square (Post) (cm) 9.28 -Area of Debridement (cm) - Length 5.8 -Area of Debridement (cm) - Width 1.6 -Total Square (Area) (cm) 9.28 -Tunneling No -Undermining/Tunneling No -Circular Undermining No -Wound/Ulcer Outcome Not Healed -Ulcer Cleansing Rinsed/ Irrigated with Saline -Foul Odor after Cleansing No -Bioengineered Tissue No -Bleeding Controlled with Pressure -Offloading No -Treatment Response Procedure Tolerated Well -Debridement - Open, 1st 20sq cm Yes [See Physician Procedure note for Specifics] Pain Scale: 0-10 Numeric [Pain] -Is Patient Pain Free? Yes WC - Nurse 3 - General Ulcer D/C NN Start: 02/10/20 11:40 Freq: Status: Active Protocol: Activity Type Activity Date Activity User E-Sign Co-Sign Detail Recorded Client Recorded Date Recorded By Document 02/10/20 12:12 RB [id number] 02/10/20 12:14 RB 02/10/20 12:12 Wound Care Nurse 3 [Wound Dressing] #4 R Lat Lower Leg -Ulcer Cleansing Wound Cleanser -Primary Dressing Applied Aquacel AG 4x4 -Primary Dressing Covered/Secured Dry Gauze,Dry with Gauze & Roll Gauze -Aquacel AG 4x4 1 [Compression Applied] Right -Tubular Bandage Single Layer -Size of Tubigrip Used Size D -Size D ($) 1 [Post Procedure Tolerated] -Treatment Response Procedure Tolerated Well Pain Scale: 0-10 Numeric [Pain] -Is Patient Pain Free? Yes Teaching: Wound Center [Wound Center Education] (Items with an * have Printed Materials Available- Please identify what is given to patient under the Teaching materials given to patient and caregiver Section. Dressing Your Wound -Person Taught Patient -Teaching Method Discussion, Demonstration -Response to teaching Verbalize understanding WC - Visit Discharge [Visit Discharge Information] -Discharge Condition Stable -Ambulatory Status Ambulatory,Cane -Transportation Private Auto -Medication Reconcilliation completed No & provided to patient/care provider -Clinical Summary of Care Provided Yes Musculoskeletal: Muscle Wasting, Tenderness, - - Dropfoot right Neurological: Sensory exam intact to light touch and pain Psych/Mental Status: Normal Affect, Appropriate Debridement Note Post-Debridement Measurements/Treatment WC - Nurse 2 - General Ulcer CM Notes Start: 02/10/20 11:40 Freq: Status: Active Protocol: Activity Type Activity Date Activity User E-Sign Co-Sign Detail Recorded Client Recorded Date Recorded By Document 02/10/20 11:54 [id number] 02/10/20 12:02 02/10/20 11:54 Wound Center Nurse 2 #4 R Lat Lower Leg -Time 11:55 -Correct Patient Yes -Correct Side, Site, Position Yes -Correct Procedure Yes -Procedure Performed Yes -Type of Procedure Debridement -Clinical Debridement Epidermis / Dermis -Tissue Removed Dermis,Slough, Non-viable tissue -Post Debridement (cm) - Length 5.8 -Post Debridement (cm) - Width 1.6 -Post Debridement (cm) - Depth 0.6 -Total Square (Post) (cm) 9.28 -Area of Debridement (cm) - Length 5.8 -Area of Debridement (cm) - Width 1.6 -Total Square (Area) (cm) 9.28 -Tunneling No -Undermining/Tunneling No -Circular Undermining No -Wound/Ulcer Outcome Not Healed -Ulcer Cleansing Rinsed/ Irrigated with Saline -Foul Odor after Cleansing No -Bioengineered Tissue No -Bleeding Controlled with Pressure -Offloading No -Treatment Response Procedure Tolerated Well -Debridement - Open, 1st 20sq cm Yes Pain Scale: 0-10 Numeric Is Patient Pain Free? Yes - Nurse 3 - General Ulcer D/C NN Start: 02/10/20 11:40 Freq: Status: Active Protocol: Activity Type Activity Date Activity User E-Sign Co-Sign Detail Recorded Client Recorded Date Recorded By Document 02/10/20 12:12 [id number] 02/10/20 12:14 02/10/20 12:12 Wound Care Nurse 3 #4 R Lat Lower Leg -Ulcer Cleansing Wound Cleanser -Primary Dressing Applied Aquacel AG 4x4 -Primary Dressing Covered/Secured with Dry Gauze,Dry Gauze & Roll Gauze -Aquacel AG 4x4 1 Right -Tubular Bandage Single Layer -Size of Tubigrip Used Size D -Size D ($) 1 Treatment Response Procedure Tolerated Well Pain Scale: 0-10 Numeric Is Patient Pain Free? Yes Teaching: Wound Center Dressing Your Wound -Person Taught Patient -Teaching Method Discussion, Demonstration -Response to teaching Verbalize understanding WC - Visit Discharge Discharge Condition Stable Ambulatory Status Ambulatory,Cane Transportation Private Auto Medication Reconcilliation completed & No provided to patient/care provider Clinical Summary of Care Provided Yes Wound debrided: lateral leg Laterality: Right Type of Debridement: Selective debridement Anesthesia Used: 5% Lidocaine Gel Depth: in the subcutaneous layer Percentage of wound debrided: 100 Instrument Used: #15 blade Tissue Removed: fibrous, devitalized tissue, biofilm, slough Severity: Fat Layer Exposed Amount of bleeding with debridement: Mild Bleeding Controlled with: Pressure Patient tolerated procedure well Assessment/Plan Assessment: Prior right leg ulcer with muscle exposed. ulcer contamination repeat work-up in process. Peripheral vascular disease. Leg edema and rule out venous insufficiency. Malnutrition. Discontinued tobacco use. Walking difficulty. Pain in right limb lower. Contraction right lower extremity at ankle level. Right dropfoot Plan: Patient was carefully examined and evaluated today. Subcutaneous excisional debridement was performed as noted in the clinical panel. He will continue to change the dressing daily with Aquacel Ag and the wound VAC was discontinued. We discussed the benefits of the wound VAC. There are no local signs of infection. Due to his recurrent wound contamination and infection history, a post debridement culture was obtained again today due to increased pain and subtle evidence of denisa-ulcer inflammation. Pending results, an updated prescription of infectious disease referral will be provided. His labs performed previously were reviewed. To avoid soaking. I recommended wearing light compression to help control localized edema with a single layer Tubigrip. He had a recent vascular surgery intervention with Dr. Yarbrough recently. Dr. Yarbrough's operation report from 11-13-2019 was reviewed as the followin. Ultrasound-guided access retrograde left common femoral artery 2. Aortogram with bilateral iliofemoral angiogram 3. Right lower extremity angiogram catheter was placed into the anterior tibial artery for past the third order cannulation 4. Balloon angioplasty to anterior tibial artery into the popliteal 5. Balloon angioplasty of the popliteal occlusion 6. Balloon angioplasty popliteal occlusion with a drug-coated balloon and balloon angioplasty of the SFA's with stent and proximal femoral artery with the same balloon for prolonged inflation. He was advised to intermittently dangle the leg to improve arterial perfusion and this seems to also reduce his pain. I also provided him with a pain management referral for his limb pain and also history of chronic pain. He is under the management of pain specialist, Dr. Barrett. To continue nutritional supplementation. I answered all his questions. ---. 2019 macra update. Medication list and allergy list were reconciled and confirmed today.
[2020-02-17 11:35] VITALS: BP 123/83; PULSE 69; RESP 16; TEMP 36.6; BMI 25.2
--- NOTE | 2020-02-17 12:23 | RAD_ITS ---
STUDY: X-RAY - RIGHT TIBIA AND FIBULA REASON FOR EXAM: Male, 69 years old. right lateral leg ulcer TECHNIQUE: 2 view(s) of the tibia and fibula were obtained. COMPARISON: Prior right tibia and fibula of 10/14/2019 FINDINGS: 4 cm area of periosteal calcification and elevation of the lateral surface of the tibia approximately 19 cm above the tibial plafond occurring near an area of soft tissue ulceration. Negative for other underlying osteolytic or blastic bone lesion of the tibia or fibula. Soft tissue ulcer of the anterior lower leg with no foreign body. RAD/Tibia & Fibula 2 Views IMPRESSION: Soft tissue ulceration with underlying periosteal ossification and calcification centered 19 cm above the distal tibial plafond. Findings suggest that soft tissue infection has penetrated to and involved the surface of the tibia. Electronically Signed: Reema Smith MD at 15:56 EDT , Service support ,
--- NOTE | 2020-02-17 13:25 | PCM.WC.PN ---
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 Choe is a 69 year old with past medical history of atrial fibrillation, peripheral arterial disease status post left lower extremity stenting and tobacco abuse presents for follow-up of right leg ulcer. He is under the care of shipyard painter helper, Dr. Barrett. He relates he had successful vascular surgery intervention with Dr. Yarbrough. There is no additional intervention planned at this time. He is with his daughter today. He denies fever, chill, nausea, vomiting. He underwent operating room debridement, application of advanced wound healing product, amnio fill, and application of sarah wound VAC on 01/01/2020. He denies fever, chill, nausea, vomiting, odor, loss of appetite. He has been using Aquacel Ag and no longer using the wound VAC. He has had decreased pain to the ulcer site compared to last week however he reports routine chronic pain. There is not distinct redness and the denisa-ulcer inflammation has also resolved compared to last week. Progress of Wound: Stable - Physical Exam Vital Signs Temp Pulse Resp BP Pulse Ox 97.8 F 69 16 123/83 H 96 02/17/20 11:35 09/09/20 11:35 02/17/20 11:35 02/17/20 11:35 02/09/20 00:23 General: Alert, Oriented x3, Cooperative, No apparent distress HEENT: Atraumatic Extremities: No cyanosis, Capillary Refill Less than 3 Seconds, No Calf Tenderness - Compartment soft to palpate right lower extremity. Negative Yen and Watts sign bilateral, Diminished Peripheral Pulses, Edema, Tenderness - Ulcer manipulation is painful Skin: Ulcer/ Wound - There is no purulence, erythema, streaking, or odor noted. There is no peripheral ulcer or induration. Deep anterior compartment tissue exposure seen without visualization of bone. The adjacent skin is hairless and atrophic Wound Measurements and Assessment WC - Nurse 1 - General Ulcer Measurement Start: 02/10/20 11:40 Freq: Status: Active Protocol: Activity Type Activity Date Activity User E-Sign Co-Sign Detail Recorded Client Recorded Date Recorded By Document 02/17/20 11:35 [facility] [id number] 02/17/20 11:43 [facility] 02/17/20 11:35 Wound Center Nurse 1 [Ulcer Assessment] #4 R Lat Lower Leg -Combined with other wound No -Current Size (cm) - Length 5.7 -Current Size (cm) - Width 0.9 -Current Size (cm) - Depth 0.6 -Total Square Cm 5.13 -Photo Taken No -Epithelialization None Present -Tunneling No -Undermining/Tunneling No -Circular Undermining No -Exudate Amt Medium -Exudate Type Yellow/Green -Wound Margin Distinct, Outline Attached -Granulation Amt Medium (34-66%) -Granulation Quality Pale,Red -Slough/Fibrin Yes -Necrosis Amt Medium (34-66%) -Necrotic Tissue Type Adherent Slough -Texture (Denisa-wound Skin Appearance) Assessed, Scarring -Moisture (Denisa-wound Skin Appearance Assessed ) -Color (Denisa-wound Skin Appearance) Assessed -Temperature (Denisa-wound Skin No Abnormality Appearance) (Pt Warm) -Tenderness on Palpation (Denisa-wound Yes Skin Appearance) -Ulcer Cleansing Rinsed/ Irrigated with Saline -Foul Odor after Cleansing No -Anesthetic Used 5% Lidocaine Gel [Edema Assessment] -Lower Limb Edema Present Yes -Right Calf (cm) 32.8 -Right Ankle (cm) 20.5 WC - Nurse 2 - General Ulcer CM Notes Start: 02/10/20 11:40 Freq: Status: Active Protocol: Activity Type Activity Date Activity User E-Sign Co-Sign Detail Recorded Client Recorded Date Recorded By Document 02/17/20 11:53 [id number] 02/17/20 12:00 02/17/20 11:53 Wound Center Nurse 2 [Procedure/Treatment] #4 R Lat Lower Leg -Time 11:54 -Correct Patient Yes -Correct Side, Site, Position Yes -Correct Procedure Yes -Procedure Performed Yes -Type of Procedure Debridement -Clinical Debridement Epidermis / Dermis -Tissue Removed Epidermis, Dermis -Post Debridement (cm) - Length 5.8 -Post Debridement (cm) - Width 0.9 -Post Debridement (cm) - Depth 0.6 -Total Square (Post) (cm) 5.22 -Area of Debridement (cm) - Length 5.8 -Area of Debridement (cm) - Width 0.9 -Total Square (Area) (cm) 5.22 -Tunneling No -Undermining/Tunneling No -Circular Undermining No -Wound/Ulcer Outcome Not Healed -Ulcer Cleansing Rinsed/ Irrigated with Saline -Foul Odor after Cleansing No -Bioengineered Tissue No -Bleeding Controlled with Pressure -Offloading No -Treatment Response Procedure Tolerated Well -Debridement - Open, 1st 20sq cm Yes [See Physician Procedure note for Specifics] Pain Scale: 0-10 Numeric [Pain] -Is Patient Pain Free? Yes - Nurse 3 - General Ulcer D/C NN Start: 02/10/20 11:40 Freq: Status: Active Protocol: Activity Type Activity Date Activity User E-Sign Co-Sign Detail Recorded Client Recorded Date Recorded By Document 02/17/20 12:11 [id number] 02/17/20 12:12 02/17/20 12:11 Wound Care Nurse 3 [Wound Dressing] #4 R Lat Lower Leg -Ulcer Cleansing Rinsed/ Irrigated with Saline -Primary Dressing Applied Aquacel AG 4x4 -Primary Dressing Covered/Secured Dry Gauze,Dry with Gauze & Roll Gauze,Secured with Tape -Aquacel AG 4x4 1 [Compression Applied] Right -Lotion applied to leg before Yes compression wrap -Tubular Bandage Single Layer -Size of Tubigrip Used Size D -Size D ($) 1 [Post Procedure Tolerated] -Treatment Response Procedure Tolerated Well Pain Scale: 0-10 Numeric [Pain] -Is Patient Pain Free? Yes Teaching: Wound Center [Wound Center Education] (Items with an * have Printed Materials Available- Please identify what is given to patient under the Teaching materials given to patient and caregiver Section. Dressing Your Wound -Person Taught Patient -Teaching Method Discussion, Demonstration -Response to teaching Verbalize understanding WC - Visit Discharge [Visit Discharge Information] -Discharge Condition Stable -Ambulatory Status Ambulatory -Transportation Private Auto -Medication Reconcilliation completed No & provided to patient/care provider -Clinical Summary of Care Provided Yes Musculoskeletal: Muscle Wasting, - - Dropfoot with reduced dorsiflexion ankle manual muscle test finding noted. Active range of motion of digits noted. Prior hallux amputation right Neurological: Sensory exam intact to light touch and pain Psych/Mental Status: Normal Affect, Appropriate Debridement Note Post-Debridement Measurements/Treatment - Nurse 2 - General Ulcer CM Notes Start: 02/10/20 11:40 Freq: Status: Active Protocol: Activity Type Activity Date Activity User E-Sign Co-Sign Detail Recorded Client Recorded Date Recorded By Document 02/10/20 11:54 [id number] 02/10/20 12:02 Document 02/17/20 11:53 [id number] 02/17/20 12:00 02/10/20 02/17/20 11:54 11:53 Wound Center Nurse 2 #4 R Lat Lower Leg -Time 11:55 11:54 -Correct Patient Yes Yes -Correct Side, Site, Position Yes Yes -Correct Procedure Yes Yes -Procedure Performed Yes Yes -Type of Procedure Debridement Debridement -Clinical Debridement Epidermis / Epidermis / Dermis Dermis -Tissue Removed Dermis,Slough, Epidermis, Non-viable Dermis tissue -Post Debridement (cm) - Length 5.8 5.8 -Post Debridement (cm) - Width 1.6 0.9 -Post Debridement (cm) - Depth 0.6 0.6 -Total Square (Post) (cm) 9.28 5.22 -Area of Debridement (cm) - Length 5.8 5.8 -Area of Debridement (cm) - Width 1.6 0.9 -Total Square (Area) (cm) 9.28 5.22 -Tunneling No No -Undermining/Tunneling No No -Circular Undermining No No -Wound/Ulcer Outcome Not Healed Not Healed -Ulcer Cleansing Rinsed/ Rinsed/ Irrigated with Irrigated with Saline Saline -Foul Odor after Cleansing No No -Bioengineered Tissue No No -Bleeding Controlled with Pressure Pressure -Offloading No No -Treatment Response Procedure Procedure Tolerated Well Tolerated Well -Debridement - Open, 1st 20sq cm Yes Yes Pain Scale: 0-10 Numeric Is Patient Pain Free? Yes Yes - Nurse 3 - General Ulcer D/C NN Start: 02/10/20 11:40 Freq: Status: Active Protocol: Activity Type Activity Date Activity User E-Sign Co-Sign Detail Recorded Client Recorded Date Recorded By Document 02/10/20 12:12 RB [id number] 02/10/20 12:14 RB Document 02/17/20 12:11 [id number] 02/17/20 12:12 RB 02/10/20 02/17/20 12:12 12:11 Wound Care Nurse 3 #4 R Lat Lower Leg -Ulcer Cleansing Wound Cleanser Rinsed/ Irrigated with Saline -Primary Dressing Applied Aquacel AG 4x4 Aquacel AG 4x4 -Primary Dressing Covered/Secured with Dry Gauze,Dry Dry Gauze,Dry Gauze & Roll Gauze & Roll Gauze Gauze,Secured with Tape -Aquacel AG 4x4 1 1 Right -Lotion applied to leg before Yes compression wrap -Tubular Bandage Single Layer Single Layer -Size of Tubigrip Used Size D Size D -Size D ($) 1 1 Treatment Response Procedure Procedure Tolerated Well Tolerated Well Pain Scale: 0-10 Numeric Is Patient Pain Free? Yes Yes Teaching: Wound Center Dressing Your Wound -Person Taught Patient Patient -Teaching Method Discussion, Discussion, Demonstration Demonstration -Response to teaching Verbalize Verbalize understanding understanding WC - Visit Discharge Discharge Condition Stable Stable Ambulatory Status Ambulatory,Cane Ambulatory Transportation Private Auto Private Auto Medication Reconcilliation completed & No No provided to patient/care provider Clinical Summary of Care Provided Yes Yes Wound debrided: lateral leg Laterality: Right Type of Debridement: Selective debridement Anesthesia Used: 5% Lidocaine Gel Depth: Down to and including healthy tissue Percentage of wound debrided: 100 Instrument Used: #15 blade Tissue Removed: fibrous, devitalized subcutaneous, biofilm, slough Severity: Fat Layer Exposed Amount of bleeding with debridement: Mild Bleeding Controlled with: Pressure Patient tolerated procedure well Assessment/Plan Active Problems (Last Reviewed 01/29/19 @ 16:[address] 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 ulcer contamination. Peripheral vascular disease. Leg edema and rule out venous insufficiency. Malnutrition. Discontinued tobacco use. Walking difficulty. Pain in right limb lower. Contraction right lower extremity at ankle level. Right dropfoot Plan: Patient was carefully examined and evaluated today. Subcutaneous excisional debridement was performed as noted in the clinical panel. He will continue to change the dressing daily with Aquacel Ag. There are no local or systemic signs of infection. Due to his recurrent wound contamination and infection history, a post debridement culture was obtained last week due to increased pain and subtle evidence of denisa-ulcer inflammation. I followed up with him after microbial growth was identified. The findings are not uncommon in skin mariela. He reports lack of current inflammation or infection signs. Therefore antibiotic was not prescribed. I recommend he does however resume antimicrobial soap. It is noted he is previously seen infectious disease. An updated leg x-ray was ordered today. Due to the chronicity of this ulcer both like to review the underlying bone to see if there is any deeper tissue development. I recommended wearing light compression to help control localized edema with a single layer Tubigrip. He had a recent vascular surgery intervention with Dr. Yarbrough recently. Dr. Yarbrough's operation report from 11-13-2019 was reviewed as the followin. Ultrasound-guided access retrograde left common femoral artery 2. Aortogram with bilateral iliofemoral angiogram 3. Right lower extremity angiogram catheter was placed into the anterior tibial artery for past the third order cannulation 4. Balloon angioplasty to anterior tibial artery into the popliteal 5. Balloon angioplasty of the popliteal occlusion 6. Balloon angioplasty popliteal occlusion with a drug-coated balloon and balloon angioplasty of the SFA's with stent and proximal femoral artery with the same balloon for prolonged inflation. He was advised to intermittently dangle the leg to improve arterial perfusion and this seems to also reduce his pain. I also provided him with a pain management referral for his limb pain and also history of chronic pain. He is under the management of pain specialist, Dr. Barrett. To continue nutritional supplementation. A nutrition referral was provided today. It is noted he has stopped smoking previously and he was advised to continue avoiding this activity to optimize healing. His delays in healing are noted regardless of his comprehensive wound healing plan and intervention. We discussed palliative and supportive programs in this case. He also understands limb amputation is an option and he is not wanting to proceed with this work-up at this time. I also recommended a second opinion. He will be scheduled with an additional wound care center provider to see if they have any additional intervention recommendations. I answered all his questions. ---. 2020 macra update. Medication list and allergy list were reconciled and confirmed today.
[2020-02-23 12:40] VITALS: BP 148/83; PULSE 58; RESP 18; TEMP 36.9; BMI 25.2
--- NOTE | 2020-02-23 13:55 | HP.PCM_ITS ---
(1) History of amputation of great toe Status: Chronic Current Visit: No Code(s): Z89.419 - Acquired absence of unspecified great toe (2) Surgical wound dehiscence Status: Chronic Current Visit: Yes Qualifiers: Encounter type: initial encounter Qualified Code(s): T81.31XA - Disruption of external operation (surgical) wound, not elsewhere classified, initial encounter Code(s): T81.31XA - Disruption of external operation (surgical) wound, not elsewhere classified, initial encounter (3) Osteomyelitis Status: Chronic Current Visit: Yes Qualifiers: Osteomyelitis location: tibia Laterality: right Code(s): M86.9 - Osteomyelitis, unspecified (4) Wound infection Status: Chronic Current Visit: Yes Code(s): T14.8XXA - Other injury of unspecified body region, initial encounter; L08.9 - Local infection of the skin and subcutaneous tissue, unspecified (5) History of AK (myocardial infarction) Status: Chronic Current Visit: No Code(s): I25.2 - Old myocardial infarction (6) Hypertension Status: Chronic Current Visit: No Code(s): I10 - Essential (primary) hypertension (7) Hyperlipidemia Status: Chronic Current Visit: No Code(s): E78.5 - Hyperlipidemia, unspecified (8) History of revascularization procedure of lower extremity Status: Chronic Current Visit: Yes Code(s): Z98.62 - Peripheral vascular angioplasty status (9) History of fasciotomy Status: Chronic Current Visit: Yes Code(s): Z98.890 - Other specified postprocedural states (10) Delayed wound healing Status: Chronic Current Visit: Yes Code(s): T14.8XXD - Other injury of unspecified body region, subsequent encounter (11) Peripheral arterial occlusive disease Status: Chronic Current Visit: Yes Code(s): I77.9 - Disorder of arteries and arterioles, unspecified Comment: Ischemic RLE 07/04/18 (12) Ulcer of right lower extremity with fat layer exposed Status: Chronic Current Visit: Yes Code(s): L97.912 - Non-pressure chronic ulcer of unspecified part of right lower leg with fat layer exposed (13) Bilateral claudication of lower limb Status: Chronic Current Visit: No Code(s): I73.9 - Peripheral vascular disease, unspecified (14) Delayed wound healing Status: Chronic Current Visit: Yes Code(s): T14.8XXD - Other injury of unspecified body region, subsequent encounter (15) Foot drop, right Status: Chronic Current Visit: No Code(s): M21.371 - Foot drop, right foot (16) Wound of right lower extremity Status: Chronic Current Visit: Yes Qualifiers: Encounter type: initial encounter Qualified Code(s): S81.801A - Unspecified open wound, right lower leg, initial encounter Code(s): S81.801A - Unspecified open wound, right lower leg, initial encounter History of Present Illness Date of Service: 02/23/20 Chief Complaint: Chronic, nonhealing wound of the right lateral calf History of Wound: This is a 70-year-old white male with a complicated past medical history. The patient has a longstanding history of smoking. He smoked for approximately 50 years, having quit approximately 2 years ago. He is also known to have severe peripheral arterial occlusive disease. Approximately 2 years ago, it appears as though the patient developed a compartment syndrome of his distal right lower extremity as result of acute arterial ischemia, described by the patient as a blood clot. The compartment syndrome of the right lower extremity was treated by means of a fasciotomy, the incision of which was placed longitudinally on the lateral aspect of the right calf. As a result of the apartment syndrome, the patient developed a right foot drop, which has persisted and has been chronic. Despite treatment in the [facility], the fasciotomy incision has failed to heal, and the patient now has a chronic open surgical wound on the lateral aspect of his right calf. He has been under the care of Dr. Titus, and multiple treatment modalities have been implemented in the management of the patient's right lower extremity wound. These modalities have included negative pressure wound therapy, the use of Aquacel silver, and other topical preparations. The patient has been taken to the operating room several times for wound debridements, and AmnioFill allograft has been utilized on several occasions, the most recent of which was only several months ago. The patient is known to suffer from severe peripheral arterial occlusive disease. As result, it became necessary to perform a right great toe amputation approximately 3 years ago. The patient has been under the care of Dr. Scot Yarbrough, vascular surgeon, who has performed at least 2 revascularizations of the patient's right lower extremity. Medical records review reveals that the patient underwent right lower extremity angiography, balloon angioplasty of the right anterior tibial artery and popliteal artery, and balloon angioplasty of the right superficial femoral artery with stent placement. The patient claims to have 4 stents indwelling in the arterial tree of his right lower extremity. The aforementioned revascularization was performed on November 13, 2019. Despite extensive measures to achieve healing of the patient's right lower extremity wound, he has failed to progress. A request has been made for a second opinion. It is noted that Dr. Baum, infectious disease specialist, has been recently involved in the patient's management as well. In reviewing the patient's most recent medical records, several items are noted. His most recent laboratory results are from January 08, 2020, as follows: Glucose 88, BUN 14, creatinine 1.00, total protein 8.4, albumin 3.6, calcium 9.1, AST 20, alkaline phosphatase 89, ALT 17, total bilirubin 0.40, cholesterol 232, triglycerides 448, sodium 137, potassium 4.0, chloride 107, HDL 30, white blood count 6.6, hemoglobin 14.2, hematocrit 44.9, platelets 209,000. It is also noted that the recent x-ray, performed on February 17, 2020, reveals soft tissue ulceration with underlying periosteal ossification and calcification centered 19 cm above the distal tibial plafond. Findings suggest that soft tissue infection has penetrated to and involved the surface of the tibia. Furthermore, the results of a wound culture obtained on February 10, 2020, reveal the growth of 2+ Corynebacterium striata and 1+ coagulase-negative staph species. It appears as though the this bacterial culture remains untreated currently. Past Medical History Past Medical History: Chronic Problems (Last Reviewed 01/29/19 @ 16:[address] Faraz Connolly MD) Ulcer of right lower extremity with fat layer exposed (Chronic) Colonization status (Chronic) Ulcer of right lower extremity with muscle involvement without evidence of necrosis (Chronic) Malnutrition (Chronic) Delayed wound healing (Chronic) History of amputation of great toe (Chronic) Surgical wound dehiscence (Chronic) Osteomyelitis (Chronic) Wound infection (Chronic) History of AK (myocardial infarction) (Chronic) Hypertension (Chronic) Hyperlipidemia (Chronic) History of revascularization procedure of lower extremity (Chronic) History of fasciotomy (Chronic) Other acquired deformities of right foot (Chronic) Foot drop, right (Chronic) Difficulty walking (Chronic) Pain in right lower leg (Chronic) Other specified peripheral vascular diseases (Chronic) Delayed wound healing (Chronic) Postoperative atrial fibrillation (Chronic 07/04/18) Venous insufficiency (Chronic) Malnutrition (Chronic) 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 He is known to have a history of severe peripheral arterial occlusive disease. He also has a history of myocardial infarction, hypertension, and hyperlipidemia. Surgical History: - - Right great toe amputation - 3 years ago; dental surgery- teeth removal; multiple lower extremity revascularizations bilaterally. According the patient, he has had 2 such arterial revascularizations in the right lower extremity, and 1 on the left. Allergies/Adverse Reactions: Allergies No Known Allergies Allergy (Verified 01/01/20 10:34) Home Medications: Ambulatory Orders Medication Instructions Recorded Clopidogrel Bisulfate [Plavix] 75 mg PO DAILY 05/30/17 Hydrocodone/Acetaminophen [[place] 1 ea PO DAILY 01/01/20 5-325 Tablet] - Family History Paternal Family History: Family History (Last Reviewed 01/29/19 @ 16:[address] Faraz Connolly MD) Mother Arthritis Diabetes Breast cancer Brother Hypertension Father CVA (cerebral vascular accident) - - Patient's father at the age of 66 from a myocardial infarction. Patient's mother at the age of 93 from old age. Social History: Patient quit smoking approximately 2 years ago. Prior to that time, he smoked for 50 years, several packs daily. He denies use of alcoholic products. He is retired from [employer]. Smoking Status: Former smoker Tobacco Use: Non-smoker Alcohol: None Drugs: None Review of Systems Constitutional: Denies: Chills, Fever, Weight Change Eyes: Denies: Pain, Vision Change HEENT: Denies: Difficulty Hearing, Difficulty Swallowing, Sinus Congestion Cardiovascular: Denies: Chest Pain, Palpitations Respiratory: Denies: Cough, Shortness of Breath Gastrointestinal: Denies: Diarrhea, Nausea, Vomiting Genitourinary: Denies: Dysuria, Hematuria Endocrine: Denies: Heat/ Cold Intolerance, Polydipsia, Polyuria Hematologic/ Lymphatic: Denies: Easy Bruising, Easy Bleeding - Physical Exam Vital Signs Temp Pulse Resp BP Pulse Ox 98.5 F 58 L 18 148/83 H 96 02/23/20 12:40 02/23/20 12:40 02/23/20 12:40 02/23/20 12:40 02/09/20 00:23 General: Alert, Oriented x3, Cooperative, No apparent distress, Well developed, Well nourished, - - The patient appears of relatively normal body habitus. HEENT: Atraumatic, PERRLA, EOMI, Normocephalic Oral: Moist Mucosa Neck: Supple, No JVD, Negative Carotid Bruits, Negative Hepatojugular Reflux, No Nodes, No Nuchal Rigidity, Trachea Midline Lungs: Clear to auscultation, Normal air movement, No rhonchi, No wheeze, No rales Cardiovascular: Regular rate, Regular Rhythm, Normal S1, Normal S2, No murmurs Abdomen: Soft, Non Tender, Non-Distended Extremities: No clubbing, No cyanosis, No edema, - - The right great toe is absent, having been previously amputated. A longitudinal wound is noted on the right lateral calf, the site of the previous fasciotomy incision. It is widely gaping. It appears to extend down to periosteum or possibly bone. There is no significant periwound erythema. No odor is noted. A right foot drop is apparent. Skin: No rashes Wound Measurements and Assessment WC - Nurse 1 - General Ulcer Measurement Start: 02/10/20 11:40 Freq: Status: Active Protocol: Activity Type Activity Date Activity User E-Sign Co-Sign Detail Recorded Client Recorded Date Recorded By Document 02/23/20 12:40 DL [id number] 02/23/20 12:49 DL 02/23/20 12:40 Wound Center Nurse 1 [Ulcer Assessment] #4 R Lat Lower Leg -Current Size (cm) - Length 5.6 -Current Size (cm) - Width 0.8 -Current Size (cm) - Depth 0.5 -Total Square Cm 4.48 -Photo Taken No -Exudate Amt Small -Exudate Type Serosanguineous -Wound Margin Thickened & Rolled Under -Granulation Amt None Present (0 %) -Necrosis Amt Large (67-100%) -Necrotic Tissue Type Adherent Slough -Structure Exposed N/A -Texture (Denisa-wound Skin Appearance) Scarring -Moisture (Denisa-wound Skin Appearance No Abnormality ) -Color (Denisa-wound Skin Appearance) Hemosiderin Staining -Temperature (Denisa-wound Skin No Abnormality Appearance) (Pt Warm) -Tenderness on Palpation (Denisa-wound No Skin Appearance) -Ulcer Cleansing Rinsed/ Irrigated with Saline -Foul Odor after Cleansing No -Anesthetic Used 4% Lidocaine Solution,5% Lidocaine Gel Neurological: Cranial nerves II-XII grossly intact Psych/Mental Status: Normal Affect, Appropriate, Alert and oriented to time, place, person, mood and affect Debridement Note Post-Debridement Measurements/Treatment WC - Nurse 2 - General Ulcer CM Notes Start: 02/10/20 11:40 Freq: Status: Active Protocol: Activity Type Activity Date Activity User E-Sign Co-Sign Detail Recorded Client Recorded Date Recorded By Document 02/10/20 11:54 [id number] 02/10/20 12:02 Document 02/17/20 11:53 [id number] 02/17/20 12:00 02/10/20 02/17/20 11:54 11:53 Wound Center Nurse 2 #4 R Lat Lower Leg -Time 11:55 11:54 -Correct Patient Yes Yes -Correct Side, Site, Position Yes Yes -Correct Procedure Yes Yes -Procedure Performed Yes Yes -Type of Procedure Debridement Debridement -Clinical Debridement Epidermis / Epidermis / Dermis Dermis -Tissue Removed Dermis,Slough, Epidermis, Non-viable Dermis tissue -Post Debridement (cm) - Length 5.8 5.8 -Post Debridement (cm) - Width 1.6 0.9 -Post Debridement (cm) - Depth 0.6 0.6 -Total Square (Post) (cm) 9.28 5.22 -Area of Debridement (cm) - Length 5.8 5.8 -Area of Debridement (cm) - Width 1.6 0.9 -Total Square (Area) (cm) 9.28 5.22 -Tunneling No No -Undermining/Tunneling No No -Circular Undermining No No -Wound/Ulcer Outcome Not Healed Not Healed -Ulcer Cleansing Rinsed/ Rinsed/ Irrigated with Irrigated with Saline Saline -Foul Odor after Cleansing No No -Bioengineered Tissue No No -Bleeding Controlled with Pressure Pressure -Offloading No No -Treatment Response Procedure Procedure Tolerated Well Tolerated Well -Debridement - Open, 1st 20sq cm Yes Yes Pain Scale: 0-10 Numeric Is Patient Pain Free? Yes Yes - Nurse 3 - General Ulcer D/C NN Start: 02/10/20 11:40 Freq: Status: Active Protocol: Activity Type Activity Date Activity User E-Sign Co-Sign Detail Recorded Client Recorded Date Recorded By Document 02/10/20 12:12 RB [id number] 02/10/20 12:14 RB Document 02/17/20 12:11 [id number] 02/17/20 12:12 RB 02/10/20 02/17/20 12:12 12:11 Wound Care Nurse 3 #4 R Lat Lower Leg -Ulcer Cleansing Wound Cleanser Rinsed/ Irrigated with Saline -Primary Dressing Applied Aquacel AG 4x4 Aquacel AG 4x4 -Primary Dressing Covered/Secured with Dry Gauze,Dry Dry Gauze,Dry Gauze & Roll Gauze & Roll Gauze Gauze,Secured with Tape -Aquacel AG 4x4 1 1 Right -Lotion applied to leg before Yes compression wrap -Tubular Bandage Single Layer Single Layer -Size of Tubigrip Used Size D Size D -Size D ($) 1 1 Treatment Response Procedure Procedure Tolerated Well Tolerated Well Pain Scale: 0-10 Numeric Is Patient Pain Free? Yes Yes Teaching: Wound Center Dressing Your Wound -Person Taught Patient Patient -Teaching Method Discussion, Discussion, Demonstration Demonstration -Response to teaching Verbalize Verbalize understanding understanding WC - Visit Discharge Discharge Condition Stable Stable Ambulatory Status Ambulatory,Cane Ambulatory Transportation Private Auto Private Auto Medication Reconcilliation completed & No No provided to patient/care provider Clinical Summary of Care Provided Yes Yes No debridement was completed today Assessment/Plan Clinical Impression(s) from Imaging Studies Tibia/Fibula X-Ray 02/17/20 12:23 IMPRESSION: Soft tissue ulceration with underlying periosteal ossification and calcification centered 19 cm above the distal tibial plafond. Findings suggest that soft tissue infection has penetrated to and involved the surface of the tibia. Electronically Signed: Reema Smith MD at 15:56 EDT , Service support , Active Problems (Last Reviewed 01/29/19 @ 16:[address] 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 A second opinion has been requested with respect to a chronic nonhealing wound to the patient's right lower extremity, which appears to repre sent a prior fasciotomy site which was performed approximately 2 years ago as a result of a compartment syndrome secondary to acute arterial ischemia. The patient developed a chronic foot drop as result. Furthermore, the surgical wound has failed to completely heal. 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 He is undergone at least 2 right lower extremity vascularization procedures in the right lower extremity by Dr. Scot Yarbrough, the most recent of which was performed in November 2019. 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 A culture performed on February 10, 2020, is positive for Corynebacterium stratum and coagulase negative staph, possibly MRSA. Plan: This patient has a very complicated presentation and past medical history. There are multiple issues to be considered regarding the management of the patient's chronic nonhealing right lower extremity wound. The patient is known to be a vasculopath, and has had multiple revascularizations in the past by Dr. Scot Yarbrough. One question to be discerned is whether his arterial status is optimized, given the severity of his disease. In this regard, Dr. Yarbrough's clinical impressions may be of benefit. Based upon the patient's laboratory results, anemia, malnutrition, and other factors do not appear to be contributing to the patient's lack of progress. Of significance, there is some evidence to suggest that the patient may suffer from osteomyelitis, given the results of his most recent radiographs, and culture results. It is noted that Dr. Baum has recently been involved in the patient's management, and collaboration with Dr. Baum is felt to be warranted at this time, to direct antibiotic management, and to provide insight as to the likelihood of osteomyelitis as an entity. There may be a role for MRI of the distal right lower extremity for further assessment of possible osteomyelitis. Alternatively, multidisciplinary assessment of current findings may also corroborate the diagnosis. Given the possibility of osteomyelitis, and the c hronicity of the patient's wound, there is likely to be a role for hyperbaric oxygen therapy and treatment for the patient's current condition. Hyperbaric oxygen therapy has been discussed with the patient and his daughter, who is at the bedside. The indications and risks of hyperbaric oxygen therapy have been discussed, as well as the likely treatment protocol. In light of the complex nature of the patient's wound, and his extensive medical history, it is felt that a multidisciplinary approach to the management of this patient is warranted. The involvement of each of the patient's most recent providers will be sought. This case will be discussed in detail with Dr. Titus. . Influenza vaccine was not administered today. The patient is not currently a smoker. Patient weighs 180 pounds. He stands 6 feet 0 inches tall. His BMI is 24.4, which is normal.
[2020-03-02 14:14] VITALS: BP 147/84; PULSE 63; RESP 20; TEMP 35.9; BMI 25.2
--- NOTE | 2020-03-02 15:13 | PCM.PN.ID ---
Subjective: R brown more sore, no drainage, no fever. - Physical Exam Vitals/I&O's: Vital Signs Temp Pulse Resp BP Pulse Ox 96.7 F L 63 20 H 147/84 H 96 03/02/20 14:14 03/02/20 14:14 03/02/20 14:14 03/02/20 14:14 02/09/20 00:23 Oxygen Delivery Method Room Air Weight: 91.138 kg Body Mass Index (BMI) 25.2 General: Alert, Cooperative, No apparent distress Lungs: Clear to auscultation, Normal air movement Cardiovascular: Regular rate, Regular Rhythm Abdomen: Soft, Non Tender, Non-Distended Skin: Ulcer/ Wound - R brown, no surrounding redness Medical Necessity - Tobacco Use Smoking Status: Former smoker Tobacco Use: Non-smoker Route of nutrition/ use of supplements: [] Nutritional Intake: [] IV Site: [] [place] Catheter: [] - Assessment/Plan Antibiotics: [] Assessment/Plan: [] R brown suspected osteo with non-healing ulcer, wound cx with Corynebacteria and CoNS. MRI pending. Discussed options with him and Dr. Titus, reviewed imaging and labs. Will start po linezolid for 14 day course while MRI pending. This will cover recent growth and have good bone penetration. Return to clinic in 2 weeks.
--- NOTE | 2020-03-02 16:05 | PN.PCM_ITS ---
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 Status: Chronic Current Visit: Yes Code(s): L97.913 - Non-pressure chronic ulcer of unspecified part of right lower leg with necrosis of muscle (5) Tobacco abuse Status: Resolved Current Visit: Yes Code(s): Z72.0 - Tobacco use (6) Malnutrition Status: Chronic Current Visit: Yes Code(s): E46 - Unspecified protein- calorie malnutrition (7) Delayed wound healing Status: Chronic Current Visit: Yes Code(s): T14.8XXD - Other injury of unspecified body region, subsequent encounter (8) Chronic osteomyelitis of right lower leg Status: Suspected Current Visit: Yes Code(s): M86.661 - Other chronic osteomyelitis, right tibia and fibula Type of Wound Date of Service: 03/02/20 Chief Complaint: Chronic, nonhealing wound of the right leg History of Wound: This 70-year-old male follows up for chronic right leg ulcer. He has recent increased pain and denies redness or odor. He change the dressing with Aquacel and reports that has been sticking the last couple of days. He denies fever, chill, nausea, vomiting. He did have recent x-rays obtained with osseous changes adjacent to the ulcer site. He is seeing infectious disease specialist today as well. He has exhausted all arterial vascular surgery procedures and is optimized at this time. Progress of Wound: Stable - Physical Exam Vital Signs Temp Pulse Resp BP Pulse Ox 96.7 F L 63 20 H 147/84 H 96 03/02/20 14:14 03/02/20 14:14 03/02/20 14:14 03/02/20 14:14 02/09/20 00:23 General: Alert, Oriented x3, Cooperative, No apparent distress HEENT: Atraumatic Extremities: No cyanosis, Capillary Refill Less than 3 Seconds, No Calf Tenderness, Diminished Peripheral Pulses, Edema - Mild Skin: Ulcer/ Wound - No purulence, streaking, odor or janel erythema to right leg. There is some decreased denisa-ulcer inflammation and induration. The ulcer bed is deep however there is no direct visualization of the bone., - - His skin to this right lower extremity limb is hairless and atrophic Wound Measurements and Assessment WC - Nurse 1 - General Ulcer Measurement Start: 02/10/20 11:40 Freq: Status: Active Protocol: Activity Type Activity Date Activity User E-Sign Co-Sign Detail Recorded Client Recorded Date Recorded By Document 03/02/20 14:14 DL [id number] 03/02/20 14:18 DL 03/02/20 14:14 Wound Center Nurse 1 [Ulcer Assessment] #4 R Lat Lower Leg -Current Size (cm) - Length 6 -Current Size (cm) - Width 0.6 -Current Size (cm) - Depth 0.5 -Total Square Cm 3.6 -Photo Taken No -Exudate Amt Small -Exudate Type Serosanguineous -Wound Margin Thickened & Rolled Under -Granulation Amt None Present (0 %) -Necrosis Amt Large (67-100%) -Necrotic Tissue Type Adherent Slough -Structure Exposed N/A -Texture (Denisa-wound Skin Appearance) Scarring -Moisture (Denisa-wound Skin Appearance No Abnormality ) -Color (Denisa-wound Skin Appearance) Hemosiderin Staining -Temperature (Denisa-wound Skin No Abnormality Appearance) (Pt Warm) -Tenderness on Palpation (Denisa-wound No Skin Appearance) -Ulcer Cleansing Rinsed/ Irrigated with Saline -Foul Odor after Cleansing No -Anesthetic Used 4% Lidocaine Solution,5% Lidocaine Gel - Nurse 2 - General Ulcer CM Notes Start: 02/10/20 11:40 Freq: Status: Active Protocol: Activity Type Activity Date Activity User E-Sign Co-Sign Detail Recorded Client Recorded Date Recorded By Document 03/02/20 14:26 [email or web address] [id number] 03/02/20 14:34 03/02/20 14:26 Wound Center Nurse 2 [Procedure/Treatment] -Correct Patient No -Correct Side, Site, Position No -Correct Procedure No -Procedure Performed No -Tunneling No -Undermining/Tunneling No -Circular Undermining No -Wound/Ulcer Outcome Not Healed -Ulcer Cleansing Rinsed/ Irrigated with Saline -Foul Odor after Cleansing No -Bioengineered Tissue No -Bleeding Controlled with Pressure -Offloading No -Treatment Response Procedure Tolerated Well -Debridement - Subq, 1st 20sq cm No [See Physician Procedure note for Specifics] Pain Scale: 0-10 Numeric [Pain] -Is Patient Pain Free? Yes Musculoskeletal: No Tenderness to Palpation of Joints or Extremities, Muscle Wasting, - - Dropfoot maintained right Neurological: Sensory exam intact to light touch and pain Psych/Mental Status: Normal Affect, Appropriate Debridement Note Post-Debridement Measurements/Treatment WC - Nurse 2 - General Ulcer CM Notes Start: 02/10/20 11:40 Freq: Status: Active Protocol: Activity Type Activity Date Activity User E-Sign Co-Sign Detail Recorded Client Recorded Date Recorded By Document 02/10/20 11:54 [id number] 02/10/20 12:02 Document 02/17/20 11:53 [id number] 02/17/20 12:00 Document 03/02/20 14:26 [id number] 03/02/20 14:34 02/10/20 02/17/20 03/02/20 11:54 11:53 14:26 Wound Center Nurse 2 #4 R Lat Lower Leg -Time 11:55 11:54 -Correct Patient Yes Yes No -Correct Side, Site, Position Yes Yes No -Correct Procedure Yes Yes No -Procedure Performed Yes Yes No -Type of Procedure Debridement Debridement -Clinical Debridement Epidermis / Epidermis / Dermis Dermis -Tissue Removed Dermis,Slough, Epidermis, Non-viable Dermis tissue -Post Debridement (cm) - Length 5.8 5.8 -Post Debridement (cm) - Width 1.6 0.9 -Post Debridement (cm) - Depth 0.6 0.6 -Total Square (Post) (cm) 9.28 5.22 -Area of Debridement (cm) - Length 5.8 5.8 -Area of Debridement (cm) - Width 1.6 0.9 -Total Square (Area) (cm) 9.28 5.22 -Tunneling No No No -Undermining/Tunneling No No No -Circular Undermining No No No -Wound/Ulcer Outcome Not Healed Not Healed Not Healed -Ulcer Cleansing Rinsed/ Rinsed/ Rinsed/ Irrigated with Irrigated with Irrigated with Saline Saline Saline -Foul Odor after Cleansing No No No -Bioengineered Tissue No No No -Bleeding Controlled with Pressure Pressure Pressure -Offloading No No No -Treatment Response Procedure Procedure Procedure Tolerated Well Tolerated Well Tolerated Well -Debridement - Open, 1st 20sq cm Yes Yes -Debridement - Subq, 1st 20sq cm No Pain Scale: 0-10 Numeric Is Patient Pain Free? Yes Yes Yes WC - Nurse 3 - General Ulcer D/C NN Start: 02/10/20 11:40 Freq: Status: Active Protocol: Activity Type Activity Date Activity User E-Sign Co-Sign Detail Recorded Client Recorded Date Recorded By Document 02/10/20 12:12 RB [id number] 02/10/20 12:14 RB Document 02/17/20 12:11 RB [id number] 02/17/20 12:12 RB Document 02/23/20 13:56 DL [id number] 02/23/20 13:57 DL 02/10/20 02/17/20 02/23/20 12:12 12:11 13:56 Wound Care Nurse 3 #4 R Lat Lower Leg -Ulcer Cleansing Wound Cleanser Rinsed/ Rinsed/ Irrigated with Irrigated with Saline Saline -Foul Odor after Cleansing No -Primary Dressing Applied Aquacel AG 4x4 Aquacel AG 4x4 Aquacel Extra -Primary Dressing Covered/Secured with Dry Gauze,Dry Dry Gauze,Dry Dry Gauze & Gauze & Roll Gauze & Roll Roll Gauze, Gauze Gauze,Secured Secured with with Tape Tape -Other Covering tubigrip -Aquacel Extra 1 -Aquacel AG 4x4 1 1 Right -Lotion applied to leg before Yes compression wrap -Tubular Bandage Single Layer Single Layer -Size of Tubigrip Used Size D Size D -Size D ($) 1 1 Treatment Response Procedure Procedure Procedure Tolerated Well Tolerated Well Tolerated Well Pain Scale: 0-10 Numeric Is Patient Pain Free? Yes Yes Yes Teaching: Wound Center Dressing Your Wound -Person Taught Patient Patient -Teaching Method Discussion, Discussion, Demonstration Demonstration -Response to teaching Verbalize Verbalize understanding understanding WC - Visit Discharge Discharge Condition Stable Stable Stable Ambulatory Status Ambulatory,Cane Ambulatory Ambulatory Transportation Private Auto Private Auto Private Auto Medication Reconcilliation completed & No No provided to patient/care provider Clinical Summary of Care Provided Yes Yes No debridement was completed today - deferred due to pain Assessment/Plan Clinical Impression(s) from Imaging Studies Tibia/Fibula X-Ray 02/17/20 12:23 IMPRESSION: Soft tissue ulceration with underlying periosteal ossification and calcification centered 19 cm above the distal tibial plafond. Findings suggest that soft tissue infection has penetrated to and involved the surface of the tibia. Electronically Signed: Reema Smith MD at 15:56 EDT , Service support , Active Problems (Last Reviewed 01/29/19 @ 16:[address] 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 He had a prior fasciotomy site which was performed approximately 2 years ago as a result of a compartment syndrome secondary to acute arterial ischemia. The patient developed a chronic foot drop as result. Furthermore, the surgical wound has failed to completely heal. 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 He is undergone at least 2 right lower extremity vascularization procedures in the right lower extremity by Dr. Scot Yarbrough, the most recent of which was performed in November 2019. The case was recently reviewed with Dr. Yarbrough and he is considered optimized at this time with no additional intervention recommendations. 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 A culture performed on February 10, 2020, is positive for Corynebacterium stratum and coagulase negative staph. He was started on antibiotics and saw infectious disease this afternoon. He will undergo 14-day course of linezolid orally which should cover his bacterial growth and penetrate bone well. He has an MRI scheduled at the [facility]. Additional antibiotics and potential hyperbaric oxygen therapy will be considered pending these results. He understands he is at risk for limb loss including amputation. To continue to change dressing daily with aqua cell AG and to wash with soap and water. To avoid soaking. Debridement was not performed today because the patient deferred. I also still recommend a nutrition referral and it is noted he did not get this scheduled. I answered all of his questions. To return to wound healing center in 1 week. Plan: This patient has a very complicated presentation and past medical history. There are multiple issues to be considered regarding the management of the patient's chronic nonhealing right lower extremity wound. The patient is known to be a vasculopath, and has had multiple revascularizations in the past by Dr. Scot Yarbrough. One question to be discerned is whether his arterial status is optimized, given the severity of his disease. In this regard, Dr. Yarbrough's clinical impressions may be of benefit. Based upon the patient's laboratory results, anemia, malnutrition, and other factors do not appear to be contributing to the patient's lack of progress. Of significance, there is some evidence to suggest that the patient may suffer from osteomyelitis, given the results of his most recent radiographs, and culture results. It is noted that Dr. Baum has recently been involved in the patient's management, and collaboration with Dr. Baum is felt to be warranted at this time, to direct antibiotic management, and to provide insight as to the likelihood of osteomyelitis as an entity. There may be a role for MRI of the distal right lower extremity for further assessment of possible osteomyelitis. Alternatively, multidisciplinary assessment of current findings may also corroborate the diagnosis. Given the possibility of osteomyelitis, and the chronicity of the patient's wound, there is likely to be a role for hyperbaric oxygen therapy and treatment for the patient's current condition. Hyperbaric oxygen therapy has been discussed with the patient and his daughter, who is at the bedside. The indications and risks of hyperbaric oxygen therapy have been discussed, as well as the likely treatment protocol. In light of the complex nature of the patient's wound, and his extensive medical history, it is felt that a multidisciplinary approach to the management of this patient is warranted. The involvement of each of the patient's most recent providers will be sought. This case will be discussed in detail with Dr. Titus. . Influenza vaccine was not administered today. The patient is not currently a smoker. Patient weighs 180 pounds. He stands 6 feet 0 inches tall. His BMI is 24.4, which is normal.
[2020-03-09 14:50] VITALS: BP 157/94; PULSE 66; RESP 18; TEMP 36.1; BMI 25.2
--- NOTE | 2020-03-09 21:36 | PN.PCM_ITS ---
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 Status: Chronic Code(s): L97.913 - Non-pressure chronic ulcer of unspecified part of right lower leg with necrosis of muscle (5) Tobacco abuse Status: Resolved Code(s): Z72.0 - Tobacco use (6) Malnutrition Status: Chronic Code(s): E46 - Unspecified protein-calorie malnutrition (7) Delayed wound healing Status: Chronic Code(s): T14.8XXD - Other injury of unspecified body region, subsequent encounter (8) Chronic osteomyelitis of right lower leg Status: Suspected Code(s): M86.661 - Other chronic osteomyelitis, right tibia and fibula Type of Wound Date of Service: 03/09/20 Chief Complaint: Chronic, nonhealing wound of the right leg History of Wound: This 70-year-old male follows up for chronic right leg ulcer. He has recent increased pain and denies redness or odor. He change the dressing with Aquacel ag. He denies fever, chill, nausea, vomiting. He did have recent x-rays obtained with osseous changes adjacent to the ulcer site. He is seeing infectious disease specialist today as well. He has exhausted all arterial vascular surgery procedures and is optimized at this time. He is scheduled to get leg MRI at the [facility] on March 16, 2020. Progress of Wound: Stable - Physical Exam Vital Signs Temp Pulse Resp BP Pulse Ox 97 F L 66 18 157/94 H 96 03/09/20 14:50 03/09/20 14:50 03/09/20 14:50 03/09/20 14:50 02/09/20 00:23 General: Alert, Oriented x3, Cooperative, No apparent distress HEENT: Atraumatic Extremities: No cyanosis, Capillary Refill Less than 3 Seconds, No Calf Tenderness, Diminished Peripheral Pulses, Edema - Mild Skin: Ulcer/ Wound - No purulence, erythema, streaking, odor, infection. Reduced keenan-ulcer inflammation. No progressive granulation or reduction in ulcer size noted Wound Measurements and Assessment - Nurse 1 - General Ulcer Measurement Start: 02/10/20 11:40 Freq: Status: Active Protocol: Activity Type Activity Date Activity User E-Sign Co-Sign Detail Recorded Client Recorded Date Recorded By Document 03/09/20 14:50 [id number] 03/09/20 14:52 03/09/20 14:50 Wound Center Nurse 1 [Ulcer Assessment] #4 R Lat Lower Leg -Combined with other wound No -Current Size (cm) - Length 5.2 -Current Size (cm) - Width 0.4 -Current Size (cm) - Depth 0.8 -Total Square Cm 2.08 -Tunneling No -Circular Undermining No -Exudate Amt Medium -Exudate Type Serosanguineous -Wound Margin Thickened & Rolled Under -Granulation Amt Medium (34-66%) -Granulation Quality [place] -Slough/Fibrin Yes -Necrosis Amt Small (1-33%) -Necrotic Tissue Type Adherent Slough -Structure Exposed N/A -Texture ([place]-wound Skin Appearance) Assessed -Moisture ([place]en[place]-wound Skin Appearance Assessed ) -Color ([place]-wound Skin Appearance) Assessed -Temperature ([place]-wound Skin No Abnormality Appearance) (Pt Warm) -Tenderness on Palpation ([place]-wound No Skin Appearance) -Ulcer Cleansing Wound Cleanser -Foul Odor after Cleansing No -Anesthetic Used 4% Lidocaine Solution [Edema Assessment] -Lower Limb Edema Present Yes -Right Calf (cm) 33.5 -Right Ankle (cm) 21 - Nurse 2 - General Ulcer CM Notes Start: 02/10/20 11:40 Freq: Status: Active Protocol: Activity Type Activity Date Activity User E-Sign Co-Sign Detail Recorded Client Recorded Date Recorded By Document 03/09/20 15:36 [id number] 03/09/20 15:39 03/09/20 15:36 Wound Center Nurse 2 [Procedure/Treatment] #4 R Lat Lower Leg -Correct Patient Yes -Correct Side, Site, Position Yes -Correct Procedure Yes -Procedure Performed Yes -Type of Procedure Debridement -Clinical Debridement Epidermis / Dermis -Tissue Removed Epidermis, Dermis -Post Debridement (cm) - Length 5.2 -Post Debridement (cm) - Width 0.6 -Post Debridement (cm) - Depth 0.8 -Total Square (Post) (cm) 3.12 -Area of Debridement (cm) - Length 5.2 -Area of Debridement (cm) - Width 0.6 -Total Square (Area) (cm) 3.12 -Tunneling No -Undermining/Tunneling No -Circular Undermining No -Wound/Ulcer Outcome Not Healed -Ulcer Cleansing Rinsed/ Irrigated with Saline -Foul Odor after Cleansing No -Bioengineered Tissue No -Bleeding Controlled with Pressure -Offloading No -Treatment Response Procedure Tolerated Well -Debridement - Open, 1st 20sq cm Yes [See Physician Procedure note for Specifics] Pain Scale: 0-10 Numeric [Pain] -Is Patient Pain Free? Yes - Nurse 3 - General Ulcer D/C NN Start: 02/10/20 11:40 Freq: Status: Active Protocol: Activity Type Activity Date Activity User E-Sign Co-Sign Detail Recorded Client Recorded Date Recorded By Document 03/09/20 15:52 RB [id number] 03/09/20 15:53 RB 03/09/20 15:52 Wound Care Nurse 3 [Wound Dressing] #4 R Lat Lower Leg -Ulcer Cleansing Rinsed/ Irrigated with Saline -Primary Dressing Applied Aquacel AG 4x4 -Primary Dressing Covered/Secured Dry Gauze,Dry with Gauze & Roll Gauze -Aquacel AG 4x4 1 [Compression Applied] Right -Other pt own tubigrip single layer [Post Procedure Tolerated] -Treatment Response Procedure Tolerated Well Pain Scale: 0-10 Numeric [Pain] -Is Patient Pain Free? Yes - Visit Discharge [Visit Discharge Information] -Discharge Condition Stable -Ambulatory Status Ambulatory,Cane -Transportation Private Auto -Medication Reconcilliation completed No & provided to patient/care provider -Clinical Summary of Care Provided Yes Musculoskeletal: No Tenderness to Palpation of Joints or Extremities, Muscle Wasting, - - Dropfoot consistent with prior evaluations Neurological: Sensory exam intact to light touch and pain Psych/Mental Status: Normal Affect, Appropriate Debridement Note Post-Debridement Measurements/Treatment - Nurse 2 - General Ulcer CM Notes Start: 02/10/20 11:40 Freq: Status: Active Protocol: Activity Type Activity Date Activity User E-Sign Co-Sign Detail Recorded Client Recorded Date Recorded By Document 02/10/20 11:54 [id number] 02/10/20 12:02 Document 02/17/20 11:53 [id number] 02/17/20 12:00 Document 03/02/20 14:26 [id number] 03/02/20 14:34 Document 03/09/20 15:36 [id number] 03/09/20 15:39 02/10/20 02/17/20 03/02/20 11:54 11:53 14:26 Wound Center Nurse 2 #4 R Lat Lower Leg -Time 11:55 11:54 -Correct Patient Yes Yes No -Correct Side, Site, Position Yes Yes No -Correct Procedure Yes Yes No -Procedure Performed Yes Yes No -Type of Procedure Debridement Debridement -Clinical Debridement Epidermis / Epidermis / Dermis Dermis -Tissue Removed Dermis,Slough, Epidermis, Non-viable Dermis tissue -Post Debridement (cm) - Length 5.8 5.8 -Post Debridement (cm) - Width 1.6 0.9 -Post Debridement (cm) - Depth 0.6 0.6 -Total Square (Post) (cm) 9.28 5.22 -Area of Debridement (cm) - Length 5.8 5.8 -Area of Debridement (cm) - Width 1.6 0.9 -Total Square (Area) (cm) 9.28 5.22 -Tunneling No No No -Undermining/Tunneling No No No -Circular Undermining No No No -Wound/Ulcer Outcome Not Healed Not Healed Not Healed -Ulcer Cleansing Rinsed/ Rinsed/ Rinsed/ Irrigated with Irrigated with Irrigated with Saline Saline Saline -Foul Odor after Cleansing No No No -Bioengineered Tissue No No No -Bleeding Controlled with Pressure Pressure Pressure -Offloading No No No -Treatment Response Procedure Procedure Procedure Tolerated Well Tolerated Well Tolerated Well -Debridement - Open, 1st 20sq cm Yes Yes -Debridement - Subq, 1st 20sq cm No Pain Scale: 0-10 Numeric Is Patient Pain Free? Yes Yes Yes 03/09/20 15:36 Wound Center Nurse 2 #4 R Lat Lower Leg -Time -Correct Patient Yes -Correct Side, Site, Position Yes -Correct Procedure Yes -Procedure Performed Yes -Type of Procedure Debridement -Clinical Debridement Epidermis / Dermis -Tissue Removed Epidermis, Dermis -Post Debridement (cm) - Length 5.2 -Post Debridement (cm) - Width 0.6 -Post Debridement (cm) - Depth 0.8 -Total Square (Post) (cm) 3.12 -Area of Debridement (cm) - Length 5.2 -Area of Debridement (cm) - Width 0.6 -Total Square (Area) (cm) 3.12 -Tunneling No -Undermining/Tunneling No -Circular Undermining No -Wound/Ulcer Outcome Not Healed -Ulcer Cleansing Rinsed/ Irrigated with Saline -Foul Odor after Cleansing No -Bioengineered Tissue No -Bleeding Controlled with Pressure -Offloading No -Treatment Response Procedure Tolerated Well -Debridement - Open, 1st 20sq cm Yes -Debridement - Subq, 1st 20sq cm Pain Scale: 0-10 Numeric Is Patient Pain Free? Yes WC - Nurse 3 - General Ulcer D/C NN Start: 02/10/20 11:40 Freq: Status: Active Protocol: Activity Type Activity Date Activity User E-Sign Co-Sign Detail Recorded Client Recorded Date Recorded By Document 02/10/20 12:12 RB [id number] 02/10/20 12:14 RB Document 02/17/20 12:11 RB [id number] 02/17/20 12:12 RB Document 02/23/20 13:56 DL [id number] 02/23/20 13:57 DL Document 03/09/20 15:52 RB [id number] 03/09/20 15:53 RB 02/10/20 02/17/20 02/23/20 12:12 12:11 13:56 Wound Care Nurse 3 #4 R Lat Lower Leg -Ulcer Cleansing Wound Cleanser Rinsed/ Rinsed/ Irrigated with Irrigated with Saline Saline -Foul Odor after Cleansing No -Primary Dressing Applied Aquacel AG 4x4 Aquacel AG 4x4 Aquacel Extra -Primary Dressing Covered/Secured with Dry Gauze,Dry Dry Gauze,Dry Dry Gauze & Gauze & Roll Gauze & Roll Roll Gauze, Gauze Gauze,Secured Secured with with Tape Tape -Other Covering tubigrip -Aquacel Extra 1 -Aquacel AG 4x4 1 1 Right -Lotion applied to leg before Yes compression wrap -Tubular Bandage Single Layer Single Layer -Size of Tubigrip Used Size D Size D -Size D ($) 1 1 -Other Treatment Response Procedure Procedure Procedure Tolerated Well Tolerated Well Tolerated Well Pain Scale: 0-10 Numeric Is Patient Pain Free? Yes Yes Yes Teaching: Wound Center Dressing Your Wound -Person Taught Patient Patient -Teaching Method Discussion, Discussion, Demonstration Demonstration -Response to teaching Verbalize Verbalize understanding understanding WC - Visit Discharge Discharge Condition Stable Stable Stable Ambulatory Status Ambulatory,Cane Ambulatory Ambulatory Transportation Private Auto Private Auto Private Auto Medication Reconcilliation completed & No No provided to patient/care provider Clinical Summary of Care Provided Yes Yes 03/09/20 15:52 Wound Care Nurse 3 #4 R Lat Lower Leg -Ulcer Cleansing Rinsed/ Irrigated with Saline -Foul Odor after Cleansing -Primary Dressing Applied Aquacel AG 4x4 -Primary Dressing Covered/Secured with Dry Gauze,Dry Gauze & Roll Gauze -Other Covering -Aquacel Extra -Aquacel AG 4x4 1 Right -Lotion applied to leg before compression wrap -Tubular Bandage -Size of Tubigrip Used -Size D ($) -Other pt own tubigrip single layer Treatment Response Procedure Tolerated Well Pain Scale: 0-10 Numeric Is Patient Pain Free? Yes Teaching: Wound Center Dressing Your Wound -Person Taught -Teaching Method -Response to teaching WC - Visit Discharge Discharge Condition Stable Ambulatory Status Ambulatory,Cane Transportation Private Auto Medication Reconcilliation completed & No provided to patient/care provider Clinical Summary of Care Provided Yes Wound debrided: leg Laterality: Right Type of Debridement: Selective debridement Anesthesia Used: 5% Lidocaine Gel Depth: Down to and including healthy tissue Percentage of wound debrided: 100 Instrument Used: 5mm curette Tissue Removed: fibrous, devitalized tissue, biofilm, slough Severity: Fat Layer Exposed Amount of bleeding with debridement: Mild Bleeding Controlled with: Pressure Patient tolerated procedure well Assessment/Plan Clinical Impression(s) from Imaging Studies Tibia/Fibula X-Ray 02/17/20 12:23 IMPRESSION: Soft tissue ulceration with underlying periosteal ossification and calcification centered 19 cm above the distal tibial plafond. Findings suggest that soft tissue infection has penetrated to and involved the surface of the tibia. Electronically Signed: Reema Smith MD at 15:56 EDT , Service support , Assessment: Prior right leg ulcer with muscle exposed. ulcer contamination. osteomyelitis work up in process. Peripheral vascular disease. Leg edema and rule out venous insufficiency. Malnutrition. Discontinued tobacco use. Walking difficulty. Pain in right limb lower. Contraction right lower extremity at ankle level. Right dropfoot. delayed healing status Plan: This is a 70-year-old male with multiple medical problems, as discussed above. He had a prior fasciotomy site which was performed approximately 2 years ago as a result of a compartment syndrome secondary to acute arterial ischemia. The patient developed a chronic foot drop as result. Furthermore, the surgical wound has failed to completely heal and remain healed. Selective debridement was performed as noted in the clinical panel to control recurrent bioburden development. 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 He is undergone at least 2 right lower extremity vascularization procedures in the right lower extremity by Dr. Scot Yarbrough, the most recent of which was performed in November 2019. The case was recently reviewed with Dr. Yarbrough and he is considered optimized at this time with no additional intervention recommendations. 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 A culture performed on February 10, 2020, is positive for Corynebacterium stratum and coagulase negative staph. He was started on antibiotics and saw infectious disease this afternoon. He will undergo 14-day course of linezolid orally which should cover his bacterial growth and penetrate bone well. He has an MRI scheduled at the [facility] (mar 16). Additional antibiotics and potential hyperbaric oxygen therapy will be considered pending these results. He understands he is at risk for limb loss including amputation. To continue to change dressing daily with aqua cell AG and to wash with soap and water. To avoid soaking. I also still recommend a nutrition referral and it is noted he did not get this scheduled. I answered all of his questions. To return to wound healing center in 1 week. 2020 macra update. Medication list and allergy list were reconciled and confirmed today.
== END 2020-03-09 23:59 ==
LOC: WC 14:30
PROVIDERS: Family Provider Family Medicine; PCP Family Medicine; Referring Provider Podiatrist; Visit Provider Podiatrist
DX: I73.9 Peripheral vascular disease, unspecified (principal); L97.812 Non-pressure chronic ulcer of other part of right lower leg with fat layer exposed; I48.0 Paroxysmal atrial fibrillation; R26.2 Difficulty in walking, not elsewhere classified; R60.0 Localized edema; M21.371 Foot drop, right foot; I10 Essential (primary) hypertension; I25.2 Old myocardial infarction; E87.5 Hyperkalemia; Z87.891 Personal history of nicotine dependence
CPT/HCPCS: 11042; 73590; 87070; 87075; 87077; 87186; 87205; 87640; 97597; 99212; G0463

== ENCOUNTER 2020-03-23 12:07 | Outpatient (RCR) | payer MEDICARE, MEDICAID, SELFPAY ==
[2020-03-10 00:25] VITALS: BP 157/94; PULSE 66; RESP 18; TEMP 36.1; O2SAT 96
[2020-03-23 11:37] VITALS: BP 154/83; PULSE 58; RESP 16; TEMP 35.7; BMI 25.2
--- NOTE | 2020-03-23 14:38 | PN.PCM_ITS ---
(1) Ulcer of right lower extremity with fat layer exposed Status: Chronic Code(s): L97.912 - Non-pressure chronic ulcer of unspecified part of right lower leg with fat layer exposed (2) Malnutrition Status: Chronic Code(s): E46 - Unspecified protein-calorie malnutrition (3) Delayed wound healing Status: Chronic Code(s): T14.8XXD - Other injury of unspecified body region, subsequent encounter (4) Other specified peripheral vascular diseases Status: Chronic Code(s): I73.89 - Other specified peripheral vascular diseases (5) Osteomyelitis Status: Ruled-out Qualifiers: Osteomyelitis location: tibia Laterality: right Code(s): M86.9 - Osteomyelitis, unspecified Type of Wound Date of Service: 03/23/20 Chief Complaint: Chronic, nonhealing wound of the right leg History of Wound: This 70-year-old male follows up for chronic right leg ulcer. He has recent increased pain and denies redness or odor. He change the dressing with Aquacel ag. He denies fever, chill, nausea, vomiting. He did have recent x-rays obtained with osseous changes adjacent to the ulcer site. He has exhausted all arterial vascular surgery procedures and is optimized at this time. He has recurrent infections and bacterial contamination. With his recent x-ray changes there is a concern of osteomyelitis. He was seen by infectious disease specialist as well who placed him on an oral antibiotic course and is also waiting for the MRI results. He had his MRI completed on March 16, 2020 at the [facility] and would like to discuss the results today. He is with his daughter. Progress of Wound: Stable - Physical Exam Vital Signs Temp Pulse Resp BP Pulse Ox 96.2 F L 58 L 16 154/83 H 96 03/23/20 11:37 03/23/20 11:37 03/23/20 11:37 03/23/20 11:37 03/10/20 00:25 General: Alert, Oriented x3, Cooperative, No apparent distress HEENT: Atraumatic Extremities: No cyanosis, Capillary Refill Less than 3 Seconds, No Calf Tenderness, Diminished Peripheral Pulses, Edema Skin: Ulcer/ Wound - No purulence, erythema, streaking, odor, infection, or periulcer inflammation today. His skin is hairless and atrophic. This ulcer does communicate with deep tissue and there is no janel eschar or necrosis. Wound Measurements and Assessment - Nurse 1 - General Ulcer Measurement Start: 03/23/20 11:35 Freq: Status: Active Protocol: Activity Type Activity Date Activity User E-Sign Co-Sign Detail Recorded Client Recorded Date Recorded By Document 03/23/20 11:37 [facility] [id number] 03/23/20 11:43 [facility] 03/23/20 11:37 Wound Center Nurse 1 [Ulcer Assessment] #4 R Lat Lower Leg -Combined with other wound No -Current Size (cm) - Length 5.4 -Current Size (cm) - Width 0.5 -Current Size (cm) - Depth 0.8 -Total Square Cm 2.70 -Photo Taken No -Epithelialization None Present -Tunneling No -Undermining/Tunneling No -Circular Undermining No -Exudate Amt Medium -Exudate Type Serosanguineous -Wound Margin Thickened -Granulation Amt Medium (34-66%) -Granulation Quality [place] -Slough/Fibrin Yes -Necrosis Amt Medium (34-66%) -Necrotic Tissue Type Adherent Slough -Texture (Denisa-wound Skin Appearance) Assessed, Scarring -Moisture (Denisa-wound Skin Appearance Assessed ) -Color (Denisa-wound Skin Appearance) Assessed -Temperature (Denisa-wound Skin No Abnormality Appearance) (Pt Warm) -Tenderness on Palpation (Denisa-wound No Skin Appearance) -Ulcer Cleansing Rinsed/ Irrigated with Saline -Foul Odor after Cleansing No -Anesthetic Used 4% Lidocaine Solution - Nurse 2 - General Ulcer CM Notes Start: 03/23/20 11:35 Freq: Status: Active Protocol: Activity Type Activity Date Activity User E-Sign Co-Sign Detail Recorded Client Recorded Date Recorded By Document 03/23/20 11:58 [id number] 03/23/20 11:59 03/23/20 11:58 Wound Center Nurse 2 [Procedure/Treatment] -Time 11:58 -Correct Patient Yes -Correct Side, Site, Position Yes -Correct Procedure Yes -Procedure Performed Yes -Type of Procedure Debridement -Clinical Debridement Epidermis / Dermis -Tissue Removed Epidermis, Dermis -Post Debridement (cm) - Length 5.5 -Post Debridement (cm) - Width 0.5 -Post Debridement (cm) - Depth 0.8 -Total Square (Post) (cm) 2.75 -Area of Debridement (cm) - Length 5.5 -Area of Debridement (cm) - Width 0.5 -Total Square (Area) (cm) 2.75 -Tunneling No -Undermining/Tunneling No -Circular Undermining No -Wound/Ulcer Outcome Not Healed -Ulcer Cleansing Rinsed/ Irrigated with Saline -Foul Odor after Cleansing No -Bioengineered Tissue No -Bleeding Controlled with Pressure -Offloading No -Treatment Response Procedure Tolerated Well -Debridement - Open, 1st 20sq cm Yes [See Physician Procedure note for Specifics] Pain Scale: 0-10 Numeric [Pain] -Is Patient Pain Free? Yes - Nurse 3 - General Ulcer D/C NN Start: 03/23/20 11:35 Freq: Status: Active Protocol: Activity Type Activity Date Activity User E-Sign Co-Sign Detail Recorded Client Recorded Date Recorded By Document 03/23/20 12:09 [facility] [id number] 03/23/20 12:09 [facility] 03/23/20 12:09 Wound Care Nurse 3 [Wound Dressing] #4 R Lat Lower Leg -Ulcer Cleansing Rinsed/ Irrigated with Saline -Foul Odor after Cleansing No -Primary Dressing Applied Aquacel AG 4x4 -Primary Dressing Covered/Secured Dry Gauze, with Secured with Tape -Aquacel AG 4x4 1 [Post Procedure Tolerated] -Treatment Response Procedure Tolerated Well Pain Scale: 0-10 Numeric [Pain] -Is Patient Pain Free? Yes - Visit Discharge [Visit Discharge Information] -Discharge Condition Stable -Ambulatory Status Ambulatory -Transportation Private Auto -Accompanied by daughter Musculoskeletal: No Tenderness to Palpation of Joints or Extremities, Muscle Wasting Neurological: Sensory exam intact to light touch and pain Psych/Mental Status: Normal Affect, Appropriate Debridement Note Post-Debridement Measurements/Treatment - Nurse 2 - General Ulcer CM Notes Start: 03/23/20 11:35 Freq: Status: Active Protocol: Activity Type Activity Date Activity User E-Sign Co-Sign Detail Recorded Client Recorded Date Recorded By Document 03/23/20 11:58 [id number] 03/23/20 11:59 03/23/20 11:58 Wound Center Nurse 2 #4 R Lat Lower Leg -Time 11:58 -Correct Patient Yes -Correct Side, Site, Position Yes -Correct Procedure Yes -Procedure Performed Yes -Type of Procedure Debridement -Clinical Debridement Epidermis / Dermis -Tissue Removed Epidermis, Dermis -Post Debridement (cm) - Length 5.5 -Post Debridement (cm) - Width 0.5 -Post Debridement (cm) - Depth 0.8 -Total Square (Post) (cm) 2.75 -Area of Debridement (cm) - Length 5.5 -Area of Debridement (cm) - Width 0.5 -Total Square (Area) (cm) 2.75 -Tunneling No -Undermining/Tunneling No -Circular Undermining No -Wound/Ulcer Outcome Not Healed -Ulcer Cleansing Rinsed/ Irrigated with Saline -Foul Odor after Cleansing No -Bioengineered Tissue No -Bleeding Controlled with Pressure -Offloading No -Treatment Response Procedure Tolerated Well -Debridement - Open, 1st 20sq cm Yes Pain Scale: 0-10 Numeric Is Patient Pain Free? Yes - Nurse 3 - General Ulcer D/C NN Start: 03/23/20 11:35 Freq: Status: Active Protocol: Activity Type Activity Date Activity User E-Sign Co-Sign Detail Recorded Client Recorded Date Recorded By Document 03/23/20 12:09 [facility] [id number] 03/23/20 12:09 [facility] 03/23/20 12:09 Wound Care Nurse 3 #4 R Lat Lower Leg -Ulcer Cleansing Rinsed/ Irrigated with Saline -Foul Odor after Cleansing No -Primary Dressing Applied Aquacel AG 4x4 -Primary Dressing Covered/Secured with Dry Gauze, Secured with Tape -Aquacel AG 4x4 1 Treatment Response Procedure Tolerated Well Pain Scale: 0-10 Numeric Is Patient Pain Free? Yes - Visit Discharge Discharge Condition Stable Ambulatory Status Ambulatory Transportation Private Auto Accompanied by daughter Wound debrided: leg Laterality: Right Type of Debridement: Selective debridement Anesthesia Used: 5% Lidocaine Gel Depth: in the subcutaneous layer Percentage of wound debrided: 100 Instrument Used: 3mm curette Tissue Removed: fibrous, devitalized selective, biofilm, slough Severity: Fat Layer Exposed Amount of bleeding with debridement: Mild Bleeding Controlled with: Pressure Patient tolerated procedure well Assessment/Plan Active Problems (Last Reviewed 01/29/19 @ 16:[address] Faraz Connolly MD) Ulcer of right lower extremity with fat layer exposed (Chronic) Malnutrition (Chronic) Delayed wound healing (Chronic) Other specified peripheral vascular diseases (Chronic) Assessment: Prior right leg ulcer with muscle exposed. ulcer contamination. osteomyelitis work up in process and currently not confirmed with MRI. Peripheral vascular disease. Leg edema and rule out venous insufficiency. Malnutrition. Discontinued tobacco use. Walking difficulty. Pain in right limb lower. Contraction right lower extremity at ankle level. Right dropfoot. delayed healing status Plan: This is a 70-year-old male with multiple medical problems, as discussed above. He had a prior fasciotomy site which was performed approximately 2 years ago as a result of a compartment syndrome secondary to acute arterial ischemia. The patient developed a chronic foot drop as result. Furthermore, the surgical wound has failed to completely heal and remain healed. Selective debridement was performed as noted in the clinical panel to control recurrent bioburden development. 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 He is undergone at least 2 right lower extremity vascularization procedures in the right lower extremity by Dr. Scot Yarbrough, the most recent of which was performed in November 2019. The case was recently reviewed with Dr. Yarbrough and he is considered optimized at this time with no additional intervention recommendations. 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 A culture performed on February 10, 2020, is positive for Corynebacterium stratum and coagulase negative staph. He was started on antibiotics and saw infectious disease for this. He completed a 14- day course of linezolid orally which should cover his bacterial growth and penetrate bone well. He had MRI scheduled at the [facility] (mar 16). The report and images were reviewed and it is noted osteomyelitis was not seen. Additional antibiotics and potential hyperbaric oxygen therapy will be considered in the future only if there is a status change. He does not meet qualifying standard in regards to his diagnosis to move forward at this time. He understands he is at risk for limb loss including amputation. To continue to change dressing daily with [employer] cell AG and to wash with soap and water. To avoid soaking. I also still recommend a nutrition referral and it is noted he did not get this scheduled. I answered all of his questions. To return to wound healing center in 3 weeks. He would like to transition into a more palliative type wound care program at this time. 2019 macra update. Medication list and allergy list were reconciled and confirmed today.
== END 2020-04-09 23:59 ==
LOC: WC 12:07
PROVIDERS: Family Provider Family Medicine; PCP Family Medicine; Referring Provider Podiatrist; Visit Provider Podiatrist
DX: I73.89 Other specified peripheral vascular diseases (principal); L97.812 Non-pressure chronic ulcer of other part of right lower leg with fat layer exposed; M21.371 Foot drop, right foot; Z87.891 Personal history of nicotine dependence; M79.609 Pain in unspecified limb
CPT/HCPCS: 97597

== ENCOUNTER 2020-04-13 11:00 | Outpatient (RCR) | payer MEDICARE, MEDICAID, SELFPAY ==
[2020-04-10 00:15] VITALS: BP 154/83; PULSE 58; RESP 16; TEMP 35.7; O2SAT 96
[2020-04-13 11:00] VITALS: BP 151/92; PULSE 67; RESP 18; TEMP 35.7; BMI 25.2
--- NOTE | 2020-04-13 22:13 | PN.PCM_ITS ---
(1) Ulcer of right lower extremity with fat layer exposed Status: Chronic Code(s): L97.912 - Non-pressure chronic ulcer of unspecified part of right lower leg with fat layer exposed (2) Malnutrition Status: Chronic Code(s): E46 - Unspecified protein-calorie malnutrition (3) Delayed wound healing Status: Chronic Code(s): T14.8XXD - Other injury of unspecified body region, subsequent encounter (4) Other specified peripheral vascular diseases Status: Chronic Code(s): I73.89 - Other specified peripheral vascular diseases Type of Wound Date of Service: 04/13/20 Chief Complaint: Chronic, nonhealing wound of the right leg History of Wound: This 70-year-old male follows up for chronic right leg ulcer. He has recent increased pain and denies redness or odor. He change the dressing with Aquacel ag. He denies fever, chill, nausea, vomiting. He did have recent x-rays obtained with osseous changes adjacent to the ulcer site. He has exhausted all arterial vascular surgery procedures and is optimized at this time. He has recurrent infections and bacterial contamination. With his recent x-ray changes there is a concern of osteomyelitis. He was seen by infectious disease specialist as well who placed him on an oral antibiotic course and is also waiting for the MRI results. He had his MRI completed on March 16, 2020 at the [facility] and this was negative for osteomyelitsi. He is on a palliative care plan. Progress of Wound: Stable - Physical Exam Vital Signs Temp Pulse Resp BP Pulse Ox 96.3 F L 67 18 151/92 H 96 04/13/20 11:00 04/13/20 11:04/13/20 11:04/13/20 11:04/10/20 00:15 General: Alert, Oriented x3, Cooperative HEENT: Atraumatic Extremities: No cyanosis, Capillary Refill Less than 3 Seconds, No Calf Tenderness, Diminished Peripheral Pulses, Edema Skin: Ulcer/ Wound - No purulence, erythema, string, odor, infection. Adjacent skin is hairless and atrophic Wound Measurements and Assessment WC - Nurse 1 - General Ulcer Measurement Start: 04/13/20 10:59 Freq: Status: Active Protocol: Activity Type Activity Date Activity User E-Sign Co-Sign Detail Recorded Client Recorded Date Recorded By Document 04/13/20 11:00 DL [id number] 04/13/20 11:09 DL 04/13/20 11:00 Wound Center Nurse 1 [Ulcer Assessment] #4 R Lat Lower Leg -Current Size (cm) - Length 4.9 -Current Size (cm) - Width 0.5 -Current Size (cm) - Depth 0.6 -Total Square Cm 2.45 -Photo Taken No -Exudate Amt Small -Exudate Type Serosanguineous -Wound Margin Thickened & Rolled Under -Granulation Amt Small (1-33%) -Granulation Quality [place] -Necrosis Amt Large (67-100%) -Necrotic Tissue Type Adherent Slough -Structure Exposed N/A -Texture (Denisa-wound Skin Appearance) Scarring -Moisture (Denisa-wound Skin Appearance No Abnormality ) -Color (Denisa-wound Skin Appearance) No Abnormality -Temperature (Denisa-wound Skin No Abnormality Appearance) (Pt Warm) -Tenderness on Palpation (Denisa-wound No Skin Appearance) -Ulcer Cleansing Wound Cleanser -Foul Odor after Cleansing No -Anesthetic Used 4% Lidocaine Solution [Edema Assessment] -Right Calf (cm) 31 -Right Ankle (cm) 19.6 WC - Nurse 2 - General Ulcer CM Notes Start: 04/13/20 10:59 Freq: Status: Active Protocol: Activity Type Activity Date Activity User E-Sign Co-Sign Detail Recorded Client Recorded Date Recorded By Document 04/13/20 11:15 [email or web address] [id number] 04/13/20 11:19 04/13/20 11:15 Wound Center Nurse 2 [Procedure/Treatment] #4 R Lat Lower Leg -Time 11:16 -Correct Patient Yes -Correct Side, Site, Position Yes -Correct Procedure Yes -Procedure Performed Yes -Type of Procedure Debridement -Clinical Debridement Epidermis / Dermis -Tissue Removed Epidermis, Dermis -Post Debridement (cm) - Length 5.3 -Post Debridement (cm) - Width 0.5 -Post Debridement (cm) - Depth 1.0 -Total Square (Post) (cm) 2.65 -Area of Debridement (cm) - Length 5.3 -Area of Debridement (cm) - Width 0.5 -Total Square (Area) (cm) 2.65 -Tunneling No -Undermining/Tunneling No -Circular Undermining No -Wound/Ulcer Outcome Not Healed -Ulcer Cleansing Rinsed/ Irrigated with Saline -Foul Odor after Cleansing No -Bioengineered Tissue No -Bleeding Controlled with Pressure -Offloading No -Treatment Response Procedure Tolerated Well -Debridement - Open, 1st 20sq cm Yes -Debridement - Subq, 1st 20sq cm No [See Physician Procedure note for Specifics] Pain Scale: 0-10 Numeric [Pain] -Is Patient Pain Free? Yes - Nurse 3 - General Ulcer D/C NN Start: 04/13/20 10:59 Freq: Status: Active Protocol: Activity Type Activity Date Activity User E-Sign Co-Sign Detail Recorded Client Recorded Date Recorded By Document 04/13/20 11:25 MAREK [id number] 04/13/20 11:26 DL 04/13/20 11:25 Wound Care Nurse 3 [Wound Dressing] #4 R Lat Lower Leg -Ulcer Cleansing Rinsed/ Irrigated with Saline -Foul Odor after Cleansing No -Primary Dressing Applied Aquacel AG 4x4 -Primary Dressing Covered/Secured Dry Gauze & with Roll Gauze, Secured with Tape -Aquacel AG 4x4 1 [Post Procedure Tolerated] -Treatment Response Procedure Tolerated Well Pain Scale: 0-10 Numeric [Pain] -Is Patient Pain Free? Yes - Visit Discharge [Visit Discharge Information] -Discharge Condition Stable -Ambulatory Status Ambulatory -Transportation Private Auto Musculoskeletal: No Tenderness to Palpation of Joints or Extremities, Muscle Wasting Neurological: Sensory exam intact to light touch and pain, - Psych/Mental Status: Normal Affect, Appropriate Debridement Note Post-Debridement Measurements/Treatment - Nurse 2 - General Ulcer CM Notes Start: 04/13/20 10:59 Freq: Status: Active Protocol: Activity Type Activity Date Activity User E-Sign Co-Sign Detail Recorded Client Recorded Date Recorded By Document 04/13/20 11:15 [id number] 04/13/20 11:19 04/13/20 11:15 Wound Center Nurse 2 #4 R Lat Lower Leg -Time 11:16 -Correct Patient Yes -Correct Side, Site, Position Yes -Correct Procedure Yes -Procedure Performed Yes -Type of Procedure Debridement -Clinical Debridement Epidermis / Dermis -Tissue Removed Epidermis, Dermis -Post Debridement (cm) - Length 5.3 -Post Debridement (cm) - Width 0.5 -Post Debridement (cm) - Depth 1.0 -Total Square (Post) (cm) 2.65 -Area of Debridement (cm) - Length 5.3 -Area of Debridement (cm) - Width 0.5 -Total Square (Area) (cm) 2.65 -Tunneling No -Undermining/Tunneling No -Circular Undermining No -Wound/Ulcer Outcome Not Healed -Ulcer Cleansing Rinsed/ Irrigated with Saline -Foul Odor after Cleansing No -Bioengineered Tissue No -Bleeding Controlled with Pressure -Offloading No -Treatment Response Procedure Tolerated Well -Debridement - Open, 1st 20sq cm Yes -Debridement - Subq, 1st 20sq cm No Pain Scale: 0-10 Numeric Is Patient Pain Free? Yes - Nurse 3 - General Ulcer D/C NN Start: 04/13/20 10:59 Freq: Status: Active Protocol: Activity Type Activity Date Activity User E-Sign Co-Sign Detail Recorded Client Recorded Date Recorded By Document 04/13/20 11:25 [email or web address] [id number] 04/13/20 11:26 DL 04/13/20 11:25 Wound Care Nurse 3 #4 R Lat Lower Leg -Ulcer Cleansing Rinsed/ Irrigated with Saline -Foul Odor after Cleansing No -Primary Dressing Applied Aquacel AG 4x4 -Primary Dressing Covered/Secured with Dry Gauze & Roll Gauze, Secured with Tape -Aquacel AG 4x4 1 Treatment Response Procedure Tolerated Well Pain Scale: 0-10 Numeric Is Patient Pain Free? Yes - Visit Discharge Discharge Condition Stable Ambulatory Status Ambulatory Transportation Private Auto Wound debrided: leg Laterality: Right Type of Debridement: Selective debridement Anesthesia Used: 5% Lidocaine Gel Depth: in the subcutaneous layer Percentage of wound debrided: 100 Instrument Used: #15 blade Tissue Removed: fibrous, devitalized tissue, biofilm, slough Severity: Fat Layer Exposed Amount of bleeding with debridement: Mild Bleeding Controlled with: Pressure Patient tolerated procedure well Assessment/Plan Active Problems (Last Reviewed 01/29/19 @ 16:[address] Faraz Connolly MD) Ulcer of right lower extremity with fat layer exposed (Chronic) Malnutrition (Chronic) Delayed wound healing (Chronic) Other specified peripheral vascular diseases (Chronic) Assessment: Prior right leg ulcer with muscle exposed. osteomyelitis work up was completed and negative at this time. Leg edema and rule out venous insufficiency. Malnutrition. Discontinued tobacco use. Walking difficulty. Pain in right limb lower. Contraction right lower extremity at ankle level. Right dropfoot. delayed healing status Plan: This is a 70-year-old male with multiple medical problems, as discussed above. He had a prior fasciotomy site which was performed approximately 2 years ago as a result of a compartment syndrome secondary to acute arterial ischemia. The patient developed a chronic foot drop as result. Furthermore, the surgical wound has failed to completely heal and remain healed. Selective debridement was performed as noted in the clinical panel to control recurrent bioburden development. 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 He is undergone at least 2 right lower extremity vascularization procedures in the right lower extremity by Dr. Scot Yarbrough, the most recent of which was performed in November 2019. The case was recently reviewed with Dr. Yarbrough and he is considered optimized at this time with no additional intervention recommendations. 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 A culture performed on February 10, 2020, is positive for Corynebacterium stratum and coagulase negative staph. He was started on antibiotics and saw infectious disease for this. He completed a 14- day course of linezolid orally which should cover his bacterial growth and penetrate bone well. He had MRI scheduled at the [facility] (mar 16). The report and images were reviewed and it is noted osteomyelitis was not seen. Additional antibiotics and potential hyperbaric oxygen therapy will be considered in the future only if there is a status change. He does not meet qualifying standard in regards to his diagnosis to move forward at this time. He understands he is at risk for limb loss including amputation. To continue to change dressing daily with [employer] cell AG and to wash with soap and water. To avoid soaking. I also still recommend a nutrition referral and it is noted he did not get this scheduled. I answered all of his questions. To return to wound healing center in 3 to 4 weeks. He would like to continue with a palliative type wound care program at this time. 2019 macra update. Medication list and allergy list were reconciled and confirmed today.
== END 2020-05-09 23:59 ==
LOC: WC 11:00
PROVIDERS: Family Provider Family Medicine; PCP Family Medicine; Referring Provider Podiatrist; Visit Provider Podiatrist
DX: I73.9 Peripheral vascular disease, unspecified (principal); L97.812 Non-pressure chronic ulcer of other part of right lower leg with fat layer exposed; R60.0 Localized edema; Z87.891 Personal history of nicotine dependence; M21.371 Foot drop, right foot; M79.604 Pain in right leg; R26.2 Difficulty in walking, not elsewhere classified
CPT/HCPCS: 97597

== ENCOUNTER 2020-06-08 10:45 | Outpatient (RCR) | payer MEDICARE, MEDICAID, SELFPAY ==
[2020-05-10 00:16] VITALS: BP 151/92; PULSE 67; RESP 18; TEMP 35.7; O2SAT 96
[2020-05-11 11:09] VITALS: BP 132/77; PULSE 65; RESP 18; TEMP 36.4; BMI 25.2
[2020-05-11 11:40] VITALS: BP 134/78
--- NOTE | 2020-05-11 11:50 | PN.PCM_ITS ---
(1) Ulcer of right lower extremity with fat layer exposed Status: Chronic Code(s): L97.912 - Non-pressure chronic ulcer of unspecified part of right lower leg with fat layer exposed (2) Delayed wound healing Status: Chronic Code(s): T14.8XXD - Other injury of unspecified body region, subsequent encounter (3) Other specified peripheral vascular diseases Status: Chronic Code(s): I73.89 - Other specified peripheral vascular diseases (4) Delayed wound healing Status: Chronic Code(s): T14.8XXD - Other injury of unspecified body region, subsequent encounter (5) Foot drop, right Status: Chronic Code(s): M21.371 - Foot drop, right foot Type of Wound Date of Service: 05/11/20 Chief Complaint: Chronic, nonhealing wound of the right leg History of Wound: This 70-year-old male follows up for chronic right leg ulcer. He has recent increased pain and denies redness or odor. He change the dressing with Aquacel ag. He denies fever, chill, nausea, vomiting. He did have recent x-rays obtained with osseous changes adjacent to the ulcer site. He has exhausted all arterial vascular surgery procedures and is optimized at this time. He has recurrent infections and bacterial contamination. With his recent x-ray changes there is a concern of osteomyelitis. He was seen by infectious disease specialist as well who placed him on an oral antibiotic course and is also waiting for the MRI results. He had his MRI completed on March 16, 2020 at the [facility] and this was negative for osteomyelitsi. This has remained resolved and he is on a palliative care plan. He complains of continued right foot and ankle discomfort that seems to be exacerbated at night. His daughter asked if he could try a night splint. Progress of Wound: Stable - Physical Exam Vital Signs Temp Pulse Resp BP Pulse Ox 97.6 F L 65 18 134/78 H 96 05/11/20 11:09 05/11/20 11:09 05/11/20 11:09 05/11/20 11:40 05/10/20 00:16 General: Alert, Oriented x3, Cooperative, No apparent distress HEENT: Atraumatic Extremities: No cyanosis, No edema, Capillary Refill Less than 3 Seconds, No Calf Tenderness, Diminished Peripheral Pulses, - - Dropfoot right lower extremity unchanged compared to last visit. Muscle atrophy noted Skin: Ulcer/ Wound - no purulence, erythema, streaking, odor or infection. no periulcer inflammation or increased size Wound Measurements and Assessment - Nurse 1 - General Ulcer Measurement Start: 05/11/20 11:09 Freq: Status: Active Protocol: Activity Type Activity Date Activity User E-Sign Co-Sign Detail Recorded Client Recorded Date Recorded By Document 05/11/20 11:09 MAREK [id number] 05/11/20 11:14 DL 05/11/20 11:09 Wound Center Nurse 1 [Ulcer Assessment] #4 R Lat Lower Leg -Current Size (cm) - Length 4.8 -Current Size (cm) - Width 0.6 -Current Size (cm) - Depth 0.5 -Total Square Cm 2.88 -Photo Taken No -Exudate Amt Small -Exudate Type Serosanguineous -Wound Margin Thickened & Rolled Under -Granulation Amt None Present (0 %) -Necrosis Amt Large (67-100%) -Necrotic Tissue Type Adherent Slough -Structure Exposed N/A -Texture (Denisa-wound Skin Appearance) Scarring -Moisture (Denisa-wound Skin Appearance No Abnormality ) -Color (Denisa-wound Skin Appearance) No Abnormality, Rubor -Temperature (Denisa-wound Skin No Abnormality Appearance) (Pt Warm) -Tenderness on Palpation (Denisa-wound Yes Skin Appearance) -Ulcer Cleansing Rinsed/ Irrigated with Saline -Foul Odor after Cleansing No -Anesthetic Used 4% Lidocaine Solution - Nurse 2 - General Ulcer CM Notes Start: 05/11/20 11:09 Freq: Status: Active Protocol: Activity Type Activity Date Activity User E-Sign Co-Sign Detail Recorded Client Recorded Date Recorded By Document 05/11/20 11:19 BLANKA [id number] 05/11/20 11:22 BLANKA 05/11/20 11:19 Wound Center Nurse 2 [Procedure/Treatment] -Time 11:19 -Correct Patient Yes -Correct Side, Site, Position Yes -Correct Procedure Yes -Procedure Performed Yes -Type of Procedure Debridement -Clinical Debridement Subcutaneous -Tissue Removed Subcutaneous -Post Debridement (cm) - Length 4.8 -Post Debridement (cm) - Width 0.7 -Post Debridement (cm) - Depth 0.5 -Total Square (Post) (cm) 3.36 -Area of Debridement (cm) - Length 4.8 -Area of Debridement (cm) - Width 0.6 -Total Square (Area) (cm) 2.88 -Tunneling No -Undermining/Tunneling No -Circular Undermining No -Wound/Ulcer Outcome Not Healed -Ulcer Cleansing Rinsed/ Irrigated with Saline -Foul Odor after Cleansing No -Bioengineered Tissue No -Bleeding Controlled with Pressure -Offloading No -Treatment Response Procedure Tolerated Well -Debridement - Subq, 1st 20sq cm Yes [See Physician Procedure note for Specifics] Pain Scale: 0-10 Numeric [Pain] -Is Patient Pain Free? Yes - Nurse 3 - General Ulcer D/C NN Start: 05/11/20 11:09 Freq: Status: Active Protocol: Activity Type Activity Date Activity User E-Sign Co-Sign Detail Recorded Client Recorded Date Recorded By Document 05/11/20 11:40 RB [id number] 05/11/20 11:41 RB 05/11/20 11:40 Wound Care Nurse 3 [Wound Dressing] #4 R Lat Lower Leg -Ulcer Cleansing Rinsed/ Irrigated with Saline -Primary Dressing Applied Aquacel AG 4x4 -Primary Dressing Covered/Secured Dry Gauze,Dry with Gauze & Roll Gauze,Secured with Tape -Aquacel AG 4x4 1 [Compression Applied] Right -Tubular Bandage Single Layer -Size of Tubigrip Used Size D -Size D ($) 1 [Post Procedure Tolerated] -Treatment Response Procedure Tolerated Well Vital Signs [Blood Pressure] -Blood Pressure (90/60-120/80) 134/78 H -Blood Pressure Mean (mm Hg) 96 -Source Monitor -Position Sitting -Blood Pressure Location Left Arm Pain Scale: 0-10 Numeric [Pain] -Is Patient Pain Free? Yes - Visit Discharge [Visit Discharge Information] -Discharge Condition Stable -Ambulatory Status Ambulatory -Transportation Private Auto -Medication Reconcilliation completed No & provided to patient/care provider -Clinical Summary of Care Provided Yes Musculoskeletal: No Tenderness to Palpation of Joints or Extremities, Muscle Wasting, Tenderness - with ulcer debridement Neurological: Sensory exam intact to light touch and pain Psych/Mental Status: Normal Affect, Appropriate Debridement Note Post-Debridement Measurements/Treatment JENNIFER - Nurse 2 - General Ulcer CM Notes Start: 05/11/20 11:09 Freq: Status: Active Protocol: Activity Type Activity Date Activity User E-Sign Co-Sign Detail Recorded Client Recorded Date Recorded By Document 05/11/20 11:19 [id number] 05/11/20 11:22 JF 05/11/20 11:19 Wound Center Nurse 2 #4 R Lat Lower Leg -Time 11:19 -Correct Patient Yes -Correct Side, Site, Position Yes -Correct Procedure Yes -Procedure Performed Yes -Type of Procedure Debridement -Clinical Debridement Subcutaneous -Tissue Removed Subcutaneous -Post Debridement (cm) - Length 4.8 -Post Debridement (cm) - Width 0.7 -Post Debridement (cm) - Depth 0.5 -Total Square (Post) (cm) 3.36 -Area of Debridement (cm) - Length 4.8 -Area of Debridement (cm) - Width 0.6 -Total Square (Area) (cm) 2.88 -Tunneling No -Undermining/Tunneling No -Circular Undermining No -Wound/Ulcer Outcome Not Healed -Ulcer Cleansing Rinsed/ Irrigated with Saline -Foul Odor after Cleansing No -Bioengineered Tissue No -Bleeding Controlled with Pressure -Offloading No -Treatment Response Procedure Tolerated Well -Debridement - Subq, 1st 20sq cm Yes Pain Scale: 0-10 Numeric Is Patient Pain Free? Yes - Nurse 3 - General Ulcer D/C NN Start: 05/11/20 11:09 Freq: Status: Active Protocol: Activity Type Activity Date Activity User E-Sign Co-Sign Detail Recorded Client Recorded Date Recorded By Document 05/11/20 11:40 [id number] 05/11/20 11:41 RB 05/11/20 11:40 Wound Care Nurse 3 #4 R Lat Lower Leg -Ulcer Cleansing Rinsed/ Irrigated with Saline -Primary Dressing Applied Aquacel AG 4x4 -Primary Dressing Covered/Secured with Dry Gauze,Dry Gauze & Roll Gauze,Secured with Tape -Aquacel AG 4x4 1 Right -Tubular Bandage Single Layer -Size of Tubigrip Used Size D -Size D ($) 1 Treatment Response Procedure Tolerated Well Vital Signs Blood Pressure (90/60-120/80) 134/78 H Blood Pressure Mean (mm Hg) 96 Source Monitor Position Sitting Blood Pressure Location Left Arm Pain Scale: 0-10 Numeric Is Patient Pain Free? Yes WC - Visit Discharge Discharge Condition Stable Ambulatory Status Ambulatory Transportation Private Auto Medication Reconcilliation completed & No provided to patient/care provider Clinical Summary of Care Provided Yes Wound debrided: leg Laterality: Right Type of Debridement: Excisional debridement Anesthesia Used: 5% Lidocaine Gel Depth: in the subcutaneous layer Percentage of wound debrided: 100 Instrument Used: #15 blade Tissue Removed: fibrous, devitalized subcutaneous, biofilm, slough Severity: Fat Layer Exposed Amount of bleeding with debridement: Mild Bleeding Controlled with: Pressure Patient tolerated procedure well Assessment/Plan Active Problems (Last Reviewed 01/29/19 @ 16:[address] Faraz Connolly MD) Ulcer of right lower extremity with fat layer exposed (Chronic) Delayed wound healing (Chronic) Foot drop, right (Chronic) Other specified peripheral vascular diseases (Chronic) Delayed wound healing (Chronic) Assessment: Prior right leg ulcer with muscle exposed. osteomyelitis work up was completed and negative at this time. Leg edema and rule out venous insufficiency. Malnutrition. Discontinued tobacco use. Walking difficulty. Pain in right limb lower. Contraction right lower extremity at ankle level. Right dropfoot. delayed healing status Plan: This is a 70-year-old male with multiple medical problems, as discussed above. He had a prior fasciotomy site which was performed approximately 2 years ago as a result of a compartment syndrome secondary to acute arterial ischemia. The patient developed a chronic foot drop as result. Furthermore, the surgical wound has failed to completely heal and remain healed. Subcutaneous excisional debridement was performed as noted in the clinical panel to control recurrent bioburden development. 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 He is undergone at least 2 right lower extremity vascularization procedures in the right lower extremity by Dr. Scot Yarbrough, the most recent of which was performed in November 2019. The case was recently reviewed with Dr. Yarbrough and he is considered optimized at this time with no additional intervention recommendations. 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 A culture performed on February 10, 2020, is positive for Corynebacterium stratum and coagulase negative staph. He was s tarted on antibiotics and saw infectious disease for this. He completed a 14- day course of linezolid orally which should cover his bacterial growth and penetrate bone well. He had MRI scheduled at the [facility] (mar 16). The report and images were reviewed and it is noted osteomyelitis was not seen. Additional antibiotics and potential hyperbaric oxygen therapy will be considered in the future only if there is a status change. He does not meet qualifying standard in regards to his diagnosis to move forward at this time. He understands he is at risk for limb loss including amputation. To continue to change dressing daily with aqua cell AG and to wash with soap and water. To avoid soaking. I also still recommend a nutrition referral and it is noted he did not get this scheduled. I answered all of his questions. To return to wound healing center in 3 to 4 weeks. He would like to continue with a palliative type wound care program at this time. He complains of pain and continued dropfoot progression. I do not recommend any surgical intervention due to his vascular disease. He already has an ankle-foot orthotic brace which is semitolerated during daily ambulation. I also offered him a night splint as well for this is the timeframe it seems to be most uncomfortable recently. Prior authorization will be initiated and he is more than welcome to obtain this at [facility]. Will be contacted with insurance information. . 2019 macra update. Medication list and allergy list were reconciled and confirmed today.
[2020-06-08 11:15] VITALS: BP 139/80; PULSE 62; RESP 18; TEMP 36.6; BMI 25.2
--- NOTE | 2020-06-08 12:49 | PN.PCM_ITS ---
(1) Ulcer of right lower extremity with fat layer exposed Status: Chronic Code(s): L97.912 - Non-pressure chronic ulcer of unspecified part of right lower leg with fat layer exposed (2) Delayed wound healing Status: Chronic Code(s): T14.8XXD - Other injury of unspecified body region, subsequent encounter (3) Other specified peripheral vascular diseases Status: Chronic Code(s): I73.89 - Other specified peripheral vascular diseases (4) Delayed wound healing Status: Chronic Code(s): T14.8XXD - Other injury of unspecified body region, subsequent encounter (5) Foot drop, right Status: Chronic Code(s): M21.371 - Foot drop, right foot Type of Wound Date of Service: 06/08/20 Chief Complaint: Chronic, nonhealing wound of the right leg History of Wound: This 70-year-old male follows up for chronic right leg ulcer. He has recent increased pain and denies redness or odor. He change the dressing with Aquacel ag. He denies fever, chill, nausea, vomiting. He did have prior x- rays obtained with osseous changes adjacent to the ulcer site. He has exhausted all arterial vascular surgery procedures and is optimized at this time. He has recurrent infections and bacterial contamination. With his recent x-ray changes there is a concern of osteomyelitis. He was seen by infectious disease specialist as well who placed him on an oral antibiotic course and is also waiting for the MRI results. He had his MRI completed on March 16, 2020 at the [facility] and this was negative for osteomyelitsi. This has remained resolved and he is on a palliative care plan. Progress of Wound: Stable - Physical Exam Vital Signs Temp Pulse Resp BP Pulse Ox 97.8 F 62 18 139/80 H 96 06/08/20 11:15 06/08/20 11:15 06/08/20 11:15 06/08/20 11:15 05/10/20 00:16 General: Alert, Oriented x3, Cooperative, No apparent distress HEENT: Atraumatic Extremities: No cyanosis, Capillary Refill Less than 3 Seconds, No Calf Tenderness, Diminished Peripheral Pulses, Edema Skin: Ulcer/ Wound - No purulence, erythema, string, odor, infection. Adjacent skin is hairless and atrophic without inflammation changes Wound Measurements and Assessment WC - Nurse 1 - General Ulcer Measurement Start: 05/11/20 11:09 Freq: Status: Active Protocol: Activity Type Activity Date Activity User E-Sign Co-Sign Detail Recorded Client Recorded Date Recorded By Document 06/08/20 11:15 MAREK [id number] 06/08/20 11:21 DL 06/08/20 11:15 Wound Center Nurse 1 [Ulcer Assessment] #4 R Lat Lower Leg -Current Size (cm) - Length 4.7 -Current Size (cm) - Width 0.5 -Current Size (cm) - Depth 0.6 -Total Square Cm 2.35 -Photo Taken No -Exudate Amt None Present -Exudate Type Serosanguineous -Wound Margin Thickened & Rolled Under -Granulation Amt None Present (0 %) -Necrosis Amt Large (67-100%) -Necrotic Tissue Type Adherent Slough -Structure Exposed N/A -Texture (Denisa-wound Skin Appearance) Scarring -Moisture (Denisa-wound Skin Appearance No Abnormality ) -Color (Denisa-wound Skin Appearance) Rubor -Temperature (Denisa-wound Skin No Abnormality Appearance) (Pt Warm) -Tenderness on Palpation (Denisa-wound No Skin Appearance) -Ulcer Cleansing Rinsed/ Irrigated with Saline -Foul Odor after Cleansing No -Anesthetic Used 4% Lidocaine Solution [Edema Assessment] -Right Calf (cm) 31 -Right Ankle (cm) 19.3 WC - Nurse 2 - General Ulcer CM Notes Start: 05/11/20 11:09 Freq: Status: Active Protocol: Activity Type Activity Date Activity User E-Sign Co-Sign Detail Recorded Client Recorded Date Recorded By Document 06/08/20 11:36 [email or web address] [id number] 06/08/20 11:38 BLANKA 06/08/20 11:36 Wound Center Nurse 2 [Procedure/Treatment] #4 R Lat Lower Leg -Time 11:37 -Correct Patient Yes -Correct Side, Site, Position Yes -Correct Procedure Yes -Procedure Performed Yes -Type of Procedure Debridement -Clinical Debridement Subcutaneous -Tissue Removed Subcutaneous -Post Debridement (cm) - Length 4.8 -Post Debridement (cm) - Width 0.5 -Post Debridement (cm) - Depth 0.6 -Total Square (Post) (cm) 2.40 -Area of Debridement (cm) - Length 4.8 -Area of Debridement (cm) - Width 0.5 -Total Square (Area) (cm) 2.40 -Tunneling No -Undermining/Tunneling No -Circular Undermining No -Wound/Ulcer Outcome Not Healed -Ulcer Cleansing Rinsed/ Irrigated with Saline -Foul Odor after Cleansing No -Bioengineered Tissue No -Bleeding Controlled with Pressure -Offloading No -Treatment Response Procedure Tolerated Well -Debridement - Subq, 1st 20sq cm Yes [See Physician Procedure note for Specifics] Pain Scale: 0-10 Numeric [Pain] -Is Patient Pain Free? Yes - Nurse 3 - General Ulcer D/C NN Start: 05/11/20 11:09 Freq: Status: Active Protocol: Activity Type Activity Date Activity User E-Sign Co-Sign Detail Recorded Client Recorded Date Recorded By Document 06/08/20 11:43 [email or web address] [id number] 06/08/20 11:47 [email or web address] 06/08/20 11:43 Wound Care Nurse 3 [Wound Dressing] #4 R Lat Lower Leg -Ulcer Cleansing Rinsed/ Irrigated with Saline -Foul Odor after Cleansing No -Primary Dressing Applied Aquacel AG 4x4 -Primary Dressing Covered/Secured Dry Gauze, with Secured with Tape -Aquacel AG 4x4 1 [Post Procedure Tolerated] -Treatment Response Procedure Tolerated Well Pain Scale: 0-10 Numeric [Pain] -Is Patient Pain Free? Yes - Visit Discharge [Visit Discharge Information] -Discharge Condition Stable -Ambulatory Status Ambulatory,Cane -Transportation Private Auto Musculoskeletal: Muscle Wasting, - - Compartment soft to palpate Neurological: Sensory exam intact to light touch and pain Psych/Mental Status: Normal Affect, Appropriate Debridement Note Post-Debridement Measurements/Treatment - Nurse 2 - General Ulcer CM Notes Start: 05/11/20 11:09 Freq: Status: Active Protocol: Activity Type Activity Date Activity User E-Sign Co-Sign Detail Recorded Client Recorded Date Recorded By Document 05/11/20 11:19 JF [id number] 05/11/20 11:22 Document 06/08/20 11:36 [id number] 06/08/20 11:38 05/11/20 06/08/20 11:19 11:36 Wound Center Nurse 2 #4 R Lat Lower Leg -Time 11:19 11:37 -Correct Patient Yes Yes -Correct Side, Site, Position Yes Yes -Correct Procedure Yes Yes -Procedure Performed Yes Yes -Type of Procedure Debridement Debridement -Clinical Debridement Subcutaneous Subcutaneous -Tissue Removed Subcutaneous Subcutaneous -Post Debridement (cm) - Length 4.8 4.8 -Post Debridement (cm) - Width 0.7 0.5 -Post Debridement (cm) - Depth 0.5 0.6 -Total Square (Post) (cm) 3.36 2.40 -Area of Debridement (cm) - Length 4.8 4.8 -Area of Debridement (cm) - Width 0.6 0.5 -Total Square (Area) (cm) 2.88 2.40 -Tunneling No No -Undermining/Tunneling No No -Circular Undermining No No -Wound/Ulcer Outcome Not Healed Not Healed -Ulcer Cleansing Rinsed/ Rinsed/ Irrigated with Irrigated with Saline Saline -Foul Odor after Cleansing No No -Bioengineered Tissue No No -Bleeding Controlled with Pressure Pressure -Offloading No No -Treatment Response Procedure Procedure Tolerated Well Tolerated Well -Debridement - Subq, 1st 20sq cm Yes Yes Pain Scale: 0-10 Numeric Is Patient Pain Free? Yes Yes - Nurse 3 - General Ulcer D/C NN Start: 05/11/20 11:09 Freq: Status: Active Protocol: Activity Type Activity Date Activity User E-Sign Co-Sign Detail Recorded Client Recorded Date Recorded By Document 05/11/20 11:40 RB [id number] 05/11/20 11:41 RB Document 06/08/20 11:43 KR [id number] 06/08/20 11:47 KR 05/11/20 06/08/20 11:40 11:43 Wound Care Nurse 3 #4 R Lat Lower Leg -Ulcer Cleansing Rinsed/ Rinsed/ Irrigated with Irrigated with Saline Saline -Foul Odor after Cleansing No -Primary Dressing Applied Aquacel AG 4x4 Aquacel AG 4x4 -Primary Dressing Covered/Secured with Dry Gauze,Dry Dry Gauze, Gauze & Roll Secured with Gauze,Secured Tape with Tape -Aquacel AG 4x4 1 1 Right -Tubular Bandage Single Layer -Size of Tubigrip Used Size D -Size D ($) 1 Treatment Response Procedure Procedure Tolerated Well Tolerated Well Vital Signs Blood Pressure (90/60-120/80) 134/78 H Blood Pressure Mean (mm Hg) 96 Source Monitor Position Sitting Blood Pressure Location Left Arm Pain Scale: 0-10 Numeric Is Patient Pain Free? Yes Yes WC - Visit Discharge Discharge Condition Stable Stable Ambulatory Status Ambulatory Ambulatory,Cane Transportation Private Auto Private Auto Medication Reconcilliation completed & No provided to patient/care provider Clinical Summary of Care Provided Yes Wound debrided: leg Laterality: Right Type of Debridement: Excisional debridement Anesthesia Used: 5% Lidocaine Gel Depth: in the subcutaneous layer Percentage of wound debrided: 100 Instrument Used: #15 blade Tissue Removed: fibrous, devitalized subcutaneous, biofilm, slough Severity: Fat Layer Exposed Amount of bleeding with debridement: Mild Bleeding Controlled with: Pressure Patient tolerated procedure well Assessment/Plan Active Problems (Last Reviewed 01/29/19 @ 16:[address] Faraz Connolly MD) Ulcer of right lower extremity with fat layer exposed (Chronic) Delayed wound healing (Chronic) Foot drop, right (Chronic) Other specified peripheral vascular diseases (Chronic) Delayed wound healing (Chronic) Assessment: Prior right leg ulcer with muscle exposed. osteomyelitis work up was completed and negative at this time. Leg edema and rule out venous insufficiency. Malnutrition. Discontinued tobacco use. Walking difficulty. Pain in right limb lower. Contraction right lower extremity at ankle level. Right dropfoot. delayed healing status Plan: This is a 70-year-old male with multiple medical problems, as discussed above. He had a prior fasciotomy site which was performed approximately 2 years ago as a result of a compartment syndrome secondary to acute arterial ischemia. The patient developed a chronic foot drop as result. Furthermore, the surgical wound has failed to completely heal and remain healed. Subcutaneous excisional debridement was performed as noted in the clinical panel to control recurrent bioburden development. 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 He is undergone at least 2 right lower extremity vascularization procedures in the right lower extremity by Dr. Scot Yarbrough, the most recent of which was performed in November 2019. The case was recently reviewed with Dr. Yarbrough and he is considered optimized at this time with no additional intervention recommendations. 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 A culture performed on February 10, 2020, is positive for Corynebacterium stratum and coagulase negative staph. He was started on antibiotics and saw infectious disease for this. He completed a 14- day course of linezolid orally which should cover his bacterial growth and penetrate bone well. He had MRI scheduled at the [facility] (mar 16). The report and images were reviewed and it is noted osteomyelitis was not seen. Additional antibiotics and potential hyperbaric oxygen therapy will be considered in the future only if there is a status change. He does not meet qualifying standard in regards to his diagnosis to move forward at this time. He understands he is at risk for limb loss including amputation. To continue to change dressing daily with aqua cell AG and to wash with soap and water. To avoid soaking. I also still recommend a nutrition referral and it is noted he did not get this scheduled. I answered all of his questions. To return to wound healing center in 3 to 4 weeks. He would like to continue with a palliative type wound care program at this time. He complains of pain and continued dropfoot progression. I do not recommend any surgical intervention due to his vascular disease. He already has an ankle-foot orthotic brace which is semitolerated during daily ambulation. I also offered him a night splint as well; to continue use. . 2019 macra update. Med list and allergy list were reconciled and confirmed today.
== END 2020-06-09 23:59 ==
LOC: WC 10:45
PROVIDERS: Family Provider Family Medicine; PCP Family Medicine; Referring Provider Podiatrist; Visit Provider Podiatrist
DX: I73.9 Peripheral vascular disease, unspecified (principal); L97.812 Non-pressure chronic ulcer of other part of right lower leg with fat layer exposed; M21.371 Foot drop, right foot; Z87.891 Personal history of nicotine dependence; R60.0 Localized edema; M79.609 Pain in unspecified limb; R26.2 Difficulty in walking, not elsewhere classified
CPT/HCPCS: 11042

== ENCOUNTER 2020-07-06 13:30 | Outpatient (RCR) | payer MEDICARE, MEDICAID, SELFPAY ==
[2020-06-10 00:16] VITALS: BP 139/80; PULSE 62; RESP 18; TEMP 36.6; O2SAT 96
[2020-07-06 13:58] VITALS: BP 148/100; PULSE 83; RESP 18; TEMP 36.3; BMI 25.2
[2020-07-06 14:55] VITALS: BP 146/94
--- NOTE | 2020-07-06 22:41 | PCM.WC.PN ---
(1) Ulcer of right lower extremity with fat layer exposed Status: Chronic Code(s): L97.912 - Non-pressure chronic ulcer of unspecified part of right lower leg with fat layer exposed (2) Delayed wound healing Status: Chronic Code(s): T14.8XXD - Other injury of unspecified body region, subsequent encounter (3) History of revascularization procedure of lower extremity Status: Chronic Code(s): Z98.62 - Peripheral vascular angioplasty status (4) Foot drop, right Status: Chronic Code(s): M21.371 - Foot drop, right foot (5) Other specified peripheral vascular diseases Status: Chronic Code(s): I73.89 - Other specified peripheral vascular diseases Type of Wound Date of Service: 07/06/20 Chief Complaint: Chronic, nonhealing wound of the right leg History of Wound: This 70-year-old male follows up for chronic right leg ulcer. He has recent increased pain and denies redness or odor. He change the dressing with Aquacel ag. He denies fever, chill, nausea, vomiting. He has exhausted all arterial vascular surgery procedures and is optimized at this time. He has a history of recurrent infections and bacterial contamination. He denies infection concerns at this time and changes his dressing daily with silver product. He wears an AFO. Progress of Wound: Stable - Physical Exam Vital Signs Temp Pulse Resp BP Pulse Ox 97.3 F L 83 18 146/94 H 96 07/06/20 13:58 07/06/20 13:58 07/06/20 13:58 07/06/20 14:55 06/10/20 00:16 General: Alert, Oriented x3, Cooperative, No apparent distress Extremities: No cyanosis, No edema, Capillary Refill Less than 3 Seconds, No Calf Tenderness, Diminished Peripheral Pulses Skin: Ulcer/ Wound - No purulence, erythema, string, odor, infection. Adjacent skin is hairless and atrophic. Wound Measurements and Assessment WC - Nurse 1 - General Ulcer Measurement Start: 07/06/20 13:57 Freq: Status: Active Protocol: Activity Type Activity Date Activity User E-Sign Co-Sign Detail Recorded Client Recorded Date Recorded By Document 07/06/20 13:58 RB [id number] 07/06/20 13:59 RB 07/06/20 13:58 Wound Center Nurse 1 [Ulcer Assessment] #4 R Lat Lower Leg -Combined with other wound No -Current Size (cm) - Length 0.4 -Current Size (cm) - Width 1.5 -Current Size (cm) - Depth 0.9 -Total Square Cm 0.60 -Tunneling No -Undermining/Tunneling No -Circular Undermining No -Exudate Amt Medium -Exudate Type Serosanguineous -Wound Margin Thickened & Rolled Under -Granulation Amt Small (1-33%) -Granulation Quality Wagon Wheel -Slough/Fibrin Yes -Necrosis Amt Large (67-100%) -Necrotic Tissue Type Adherent Slough -Structure Exposed N/A -Texture (Denisa-wound Skin Appearance) Assessed, Scarring -Moisture (Denisa-wound Skin Appearance Assessed ) -Color (Denisa-wound Skin Appearance) Assessed -Temperature (Denisa-wound Skin No Abnormality Appearance) (Pt Warm) -Tenderness on Palpation (Denisa-wound No Skin Appearance) -Ulcer Cleansing Wound Cleanser -Foul Odor after Cleansing No -Anesthetic Used 4% Lidocaine Solution WC - Nurse 2 - General Ulcer CM Notes Start: 07/06/20 13:57 Freq: Status: Active Protocol: Activity Type Activity Date Activity User E-Sign Co-Sign Detail Recorded Client Recorded Date Recorded By Document 07/06/20 14:34 [id number] 07/06/20 14:37 [email or web address] 07/06/20 14:34 Wound Center Nurse 2 [Procedure/Treatment] -Time 14:34 -Correct Patient Yes -Correct Side, Site, Position Yes -Correct Procedure Yes -Procedure Performed Yes -Type of Procedure Debridement -Clinical Debridement Subcutaneous -Tissue Removed Subcutaneous -Post Debridement (cm) - Length 0.5 -Post Debridement (cm) - Width 1.5 -Post Debridement (cm) - Depth 1.0 -Total Square (Post) (cm) 0.75 -Area of Debridement (cm) - Length 0.5 -Area of Debridement (cm) - Width 1.5 -Total Square (Area) (cm) 0.75 -Tunneling No -Undermining/Tunneling No -Circular Undermining No -Wound/Ulcer Outcome Not Healed -Ulcer Cleansing Rinsed/ Irrigated with Saline -Foul Odor after Cleansing No -Bioengineered Tissue No -Bleeding Controlled with Pressure -Offloading No -Treatment Response Procedure Tolerated Well -Debridement - Subq, 1st 20sq cm Yes [See Physician Procedure note for Specifics] Pain Scale: 0-10 Numeric [Pain] -Is Patient Pain Free? Yes - Nurse 3 - General Ulcer D/C NN Start: 07/06/20 13:57 Freq: Status: Active Protocol: Activity Type Activity Date Activity User E-Sign Co-Sign Detail Recorded Client Recorded Date Recorded By Document 07/06/20 14:55 RB [id number] 07/06/20 14:56 RB 07/06/20 14:55 Wound Care Nurse 3 [Wound Dressing] #4 R Lat Lower Leg -Ulcer Cleansing Rinsed/ Irrigated with Saline -Primary Dressing Applied Silvercel -Primary Dressing Covered/Secured Dry Gauze,Dry with Gauze & Roll Gauze -Silvercel 1 [Compression Applied] Right -Tubular Bandage Single Layer -Size of Tubigrip Used Size D -Size D ($) 1 [Post Procedure Tolerated] -Treatment Response Procedure Tolerated Well Vital Signs [Blood Pressure] -Blood Pressure (90/60-120/80) 146/94 H -Blood Pressure Mean (mm Hg) 111 -Source Monitor -Position Semi-Fowlers Pain Scale: 0-10 Numeric [Pain] -Is Patient Pain Free? Yes - Visit Discharge [Visit Discharge Information] -Discharge Condition Stable -Ambulatory Status Ambulatory,Cane -Transportation Private Auto -Medication Reconcilliation completed No & provided to patient/care provider -Clinical Summary of Care Provided Yes Musculoskeletal: Muscle Wasting Neurological: Sensory exam intact to light touch and pain Psych/Mental Status: Normal Affect, Appropriate Debridement Note Post-Debridement Measurements/Treatment - Nurse 2 - General Ulcer CM Notes Start: 07/06/20 13:57 Freq: Status: Active Protocol: Activity Type Activity Date Activity User E-Sign Co-Sign Detail Recorded Client Recorded Date Recorded By Document 07/06/20 14:34 [id number] 07/06/20 14:37 07/06/20 14:34 Wound Center Nurse 2 #4 R Lat Lower Leg -Time 14:34 -Correct Patient Yes -Correct Side, Site, Position Yes -Correct Procedure Yes -Procedure Performed Yes -Type of Procedure Debridement -Clinical Debridement Subcutaneous -Tissue Removed Subcutaneous -Post Debridement (cm) - Length 0.5 -Post Debridement (cm) - Width 1.5 -Post Debridement (cm) - Depth 1.0 -Total Square (Post) (cm) 0.75 -Area of Debridement (cm) - Length 0.5 -Area of Debridement (cm) - Width 1.5 -Total Square (Area) (cm) 0.75 -Tunneling No -Undermining/Tunneling No -Circular Undermining No -Wound/Ulcer Outcome Not Healed -Ulcer Cleansing Rinsed/ Irrigated with Saline -Foul Odor after Cleansing No -Bioengineered Tissue No -Bleeding Controlled with Pressure -Offloading No -Treatment Response Procedure Tolerated Well -Debridement - Subq, 1st 20sq cm Yes Pain Scale: 0-10 Numeric Is Patient Pain Free? Yes - Nurse 3 - General Ulcer D/C NN Start: 07/06/20 13:57 Freq: Status: Active Protocol: Activity Type Activity Date Activity User E-Sign Co-Sign Detail Recorded Client Recorded Date Recorded By Document 07/06/20 14:55 RB [id number] 07/06/20 14:56 RB 07/06/20 14:55 Wound Care Nurse 3 #4 R Lat Lower Leg -Ulcer Cleansing Rinsed/ Irrigated with Saline -Primary Dressing Applied Silvercel -Primary Dressing Covered/Secured with Dry Gauze,Dry Gauze & Roll Gauze -Silvercel 1 Right -Tubular Bandage Single Layer -Size of Tubigrip Used Size D -Size D ($) 1 Treatment Response Procedure Tolerated Well Vital Signs Blood Pressure (90/60-120/80) 146/94 H Blood Pressure Mean (mm Hg) 111 Source Monitor Position Semi-Fowlers Pain Scale: 0-10 Numeric Is Patient Pain Free? Yes - Visit Discharge Discharge Condition Stable Ambulatory Status Ambulatory,Cane Transportation Private Auto Medication Reconcilliation completed & No provided to patient/care provider Clinical Summary of Care Provided Yes Wound debrided: leg Laterality: Right Type of Debridement: Excisional debridement Anesthesia Used: 5% Lidocaine Gel Depth: in the subcutaneous layer Percentage of wound debrided: 100 Instrument Used: #15 blade Tissue Removed: fibrous, devitalized subcutaneous, biofilm, slough Severity: Fat Layer Exposed Amount of bleeding with debridement: Mild Bleeding Controlled with: Pressure Patient tolerated procedure well Assessment/Plan Active Problems (Last Reviewed 01/29/19 @ 16:[address] Faraz Connolly MD) Ulcer of right lower extremity with fat layer exposed (Chronic) Delayed wound healing (Chronic) History of revascularization procedure of lower extremity (Chronic) Foot drop, right (Chronic) Other specified peripheral vascular diseases (Chronic) Assessment: Prior right leg ulcer with muscle exposed. osteomyelitis work up was completed and negative at this time. Leg edema and rule out venous insufficiency. Malnutrition. Discontinued tobacco use. Walking difficulty. Pain in right limb lower. Contraction right lower extremity at ankle level. Right dropfoot. delayed healing status Plan: This is a 70-year-old male with multiple medical problems, as discussed above. He had a prior fasciotomy site which was performed years ago as a result of a compartment syndrome secondary to acute arterial ischemia. The patient developed a chronic foot drop as result. This site did eventually heal and has now reopened with continued delayed healing. Subcutaneous excisional debridement was performed as noted in the clinical panel to control recurrent bioburden development. 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 He is undergone at least 2 right lower extremity vascularization procedures in the right lower extremity by Dr. Scot Yarbroguh, the most recent of which was performed in November 2019. The case was recently reviewed with Dr. Yarbrough and he is considered optimized at this time with no additional intervention recommendations. 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 A culture performed on February 10, 2020, is was positive for Corynebacterium stratum and coagulase negative staph. He was started on antibiotics and saw infectious disease for this. He completed a 14-day course of linezolid orally which should cover his bacterial growth and penetrate bone well. He had MRI performed at the [facility] (mar 16). The report and images were reviewed and it is noted osteomyelitis was not seen. Additional antibiotics and potential hyperbaric oxygen therapy will be considered in the future only if there is a status change. He does not meet qualifying standard in regards to his diagnosis to move forward at this time. He understands he is at risk for limb loss including amputation. To continue to change dressing daily with Optini AG and to wash with soap and water. To avoid soaking. I also still recommend a nutrition referral and it is noted he did not get this scheduled. I answered all of his questions. To return to wound healing center in 3 to 4 weeks. He would like to continue with a palliative type wound care program at this time. To continue ankle-foot orthotic which fits him appropriately at this time. His pain is controlled. Note: [email or web address] speech recognition aluminum boat assembly supervisor software was used to create portions of this document. Sound-alike and misspelled words, as well as other aluminum boat assembly supervisor errors may be contained in the documentation.
== END 2020-07-10 23:59 ==
LOC: WC 13:30
PROVIDERS: Family Provider Family Medicine; PCP Family Medicine; Referring Provider Podiatrist; Visit Provider Podiatrist
DX: I73.89 Other specified peripheral vascular diseases (principal); M21.371 Foot drop, right foot; L97.812 Non-pressure chronic ulcer of other part of right lower leg with fat layer exposed; Z87.891 Personal history of nicotine dependence
CPT/HCPCS: 11042

== ENCOUNTER → 2020-07-28 15:03 | Outpatient (CLI) | payer MEDICARE, MEDICAID, SELFPAY ==
[2020-07-06 13:58] VITALS: BMI 25.2
[2020-07-28 16:44] LABS: Amphetamine Urine VISTA NEGATIVE (<1000 ng/mL); Barbiturate Urine VISTA NEGATIVE (< 200 ng/mL); Benzodiazepine Urine VISTA NEGATIVE (< 200 ng/mL); Cocaine Urine VISTA NEGATIVE (< 300 ng/mL); Ecstacy Urine VISTA NEGATIVE (< 500 ng/mL); Methadone Urine VISTA NEGATIVE (< 300 ng/mL); PCP Urine VISTA NEGATIVE (< 25 ng/mL); THC Urine VISTA NEGATIVE (< 50 ng/mL); Vista UDS pH Range 6
== END ==
PROVIDERS: PCP Family Medicine; Referring Provider Anesthesiology Pain Medicine; Visit Provider Anesthesiology Pain Medicine
DX: F11.20 Opioid dependence, uncomplicated (principal)
CPT/HCPCS: 80307

== ENCOUNTER 2020-08-03 13:31 | Outpatient (RCR) | payer MEDICARE, MEDICAID, SELFPAY ==
[2020-07-11 00:17] VITALS: BP 146/94; PULSE 83; RESP 18; TEMP 36.3; O2SAT 96
[2020-08-03 13:35] VITALS: BP 161/78; PULSE 60; RESP 18; TEMP 37; BMI 25.2
[2020-08-03 13:55] VITALS: BP 160/78
--- NOTE | 2020-08-03 15:05 | PCM.WC.PN ---
(1) Ulcer of right lower extremity with fat layer exposed Status: Chronic Code(s): L97.912 - Non-pressure chronic ulcer of unspecified part of right lower leg with fat layer exposed (2) Delayed wound healing Status: Chronic Code(s): T14.8XXD - Other injury of unspecified body region, subsequent encounter (3) Foot drop, right Status: Chronic Code(s): M21.371 - Foot drop, right foot (4) Pain in right lower leg Status: Chronic Code(s): M79.661 - Pain in right lower leg (5) Other specified peripheral vascular diseases Status: Chronic Code(s): I73.89 - Other specified peripheral vascular diseases Type of Wound Date of Service: 08/03/20 Chief Complaint: Chronic, nonhealing wound of the right leg History of Wound: This 70-year-old male follows up for chronic right leg ulcer. He has recent increased pain and denies redness or odor. He change the dressing with Aquacel ag. He denies fever, chill, nausea, vomiting. He has exhausted all arterial vascular surgery procedures and is optimized at this time. He has a history of recurrent infections and bacterial contamination. He denies infection concerns at this time and changes his dressing daily with silver product. He wears an AFO. He does have continued rest pain. He is continuing to follow-up with pain management and relates they are reducing his narcotic medication. He is also discontinued gabapentin on his own he is he tried it for couple of weeks and related that it did not help. His pain occurs at rest and during activity. Progress of Wound: Stable - Physical Exam Vital Signs Temp Pulse Resp BP Pulse Ox 98.6 F 60 18 160/78 H 96 08/03/20 13:35 08/03/20 13:35 08/03/20 13:35 08/03/20 13:55 07/11/20 00:17 General: Alert, Oriented x3, Cooperative, No apparent distress HEENT: Atraumatic Extremities: No cyanosis, Capillary Refill Less than 3 Seconds, No Calf Tenderness, Diminished Peripheral Pulses, Edema - Resolved Skin: Ulcer/ Wound Wound Measurements and Assessment WC - Nurse 1 - General Ulcer Measurement Start: 08/03/20 13:35 Freq: Status: Active Protocol: Activity Type Activity Date Activity User E-Sign Co-Sign Detail Recorded Client Recorded Date Recorded By Document 08/03/20 13:35 DL [id number] 08/03/20 13:41 DL 08/03/20 13:35 Wound Center Nurse 1 [Ulcer Assessment] #4 R Lat Lower Leg -Current Size (cm) - Length 4.6 -Current Size (cm) - Width 0.5 -Current Size (cm) - Depth 0.5 -Total Square Cm 2.30 -Photo Taken No -Undermining/Tunneling Starts (O' 12 clock) -Undermining/Tunneling Ends (O'clock) 5 -Maximum Distance (cm) 0.2 -Exudate Amt Medium -Exudate Type Serosanguineous -Wound Margin Thickened & Rolled Under -Granulation Amt None Present (0 %) -Necrosis Amt Large (67-100%) -Necrotic Tissue Type Adherent Slough -Structure Exposed N/A -Texture (Denisa-wound Skin Appearance) Scarring -Moisture (Denisa-wound Skin Appearance No Abnormality ) -Color (Denisa-wound Skin Appearance) Rubor -Temperature (Denisa-wound Skin No Abnormality Appearance) (Pt Warm) -Tenderness on Palpation (Denisa-wound No Skin Appearance) -Ulcer Cleansing Wound Cleanser -Foul Odor after Cleansing No -Anesthetic Used 4% Lidocaine Solution [Edema Assessment] -Right Calf (cm) 31.5 -Right Ankle (cm) 20.5 WC - Nurse 2 - General Ulcer CM Notes Start: 08/03/20 13:35 Freq: Status: Active Protocol: Activity Type Activity Date Activity User E-Sign Co-Sign Detail Recorded Client Recorded Date Recorded By Document 08/03/20 13:48 [id number] 08/03/20 13:50 [email or web address] 08/03/20 13:48 Wound Center Nurse 2 [Procedure/Treatment] #4 R Lat Lower Leg -Time 13:48 -Correct Patient Yes -Correct Side, Site, Position Yes -Correct Procedure Yes -Procedure Performed Yes -Type of Procedure Debridement -Clinical Debridement Epidermis / Dermis -Tissue Removed Epidermis, Dermis -Post Debridement (cm) - Length 4.6 -Post Debridement (cm) - Width 0.5 -Post Debridement (cm) - Depth 1 -Total Square (Post) (cm) 2.30 -Area of Debridement (cm) - Length 4.6 -Area of Debridement (cm) - Width 0.5 -Total Square (Area) (cm) 2.30 -Tunneling No -Undermining/Tunneling No -Circular Undermining No -Wound/Ulcer Outcome Not Healed -Ulcer Cleansing Rinsed/ Irrigated with Saline -Foul Odor after Cleansing No -Bioengineered Tissue No -Bleeding Controlled with Pressure -Offloading No -Treatment Response Procedure Tolerated Well -Debridement - Open, 1st 20sq cm Yes [See Physician Procedure note for Specifics] Pain Scale: 0-10 Numeric [Pain] -Is Patient Pain Free? Yes WC - Nurse 3 - General Ulcer D/C NN Start: 08/03/20 13:35 Freq: Status: Active Protocol: Activity Type Activity Date Activity User E-Sign Co-Sign Detail Recorded Client Recorded Date Recorded By Document 08/03/20 13:55 RB [id number] 08/03/20 13:57 RB 08/03/20 13:55 Wound Care Nurse 3 [Wound Dressing] #4 R Lat Lower Leg -Ulcer Cleansing Rinsed/ Irrigated with Saline -Primary Dressing Applied Aquacel AG 4x4 -Primary Dressing Covered/Secured Dry Gauze, with Secured with Tape -Aquacel AG 4x4 1 [Compression Applied] Right -Tubular Bandage Single Layer -Size of Tubigrip Used Size D -Size D ($) 1 [Post Procedure Tolerated] -Treatment Response Procedure Tolerated Well Vital Signs [Blood Pressure] -Blood Pressure (90/60-120/80) 160/78 H -Blood Pressure Mean (mm Hg) 105 -Source Monitor -Position Semi-Fowlers -Blood Pressure Location Left Arm WC - Visit Discharge [Visit Discharge Information] -Discharge Condition Stable -Ambulatory Status Ambulatory,Cane -Transportation Private Auto -Medication Reconcilliation completed No & provided to patient/care provider -Clinical Summary of Care Provided Yes Musculoskeletal: No Tenderness to Palpation of Joints or Extremities, Muscle Wasting, - - Compartment soft to palpate. No bogginess or fluctuance on palpation. Dropfoot noted right lower extremity. Ankle-foot orthotic noted. No pain on palpation to medial or lateral malleoli, Achilles, posterior tibialis or peroneal tendon or ankle joint line Neurological: Sensory exam intact to light touch and pain - Hypersensitive to touch Psych/Mental Status: Normal Affect, Appropriate Debridement Note Post-Debridement Measurements/Treatment WC - Nurse 2 - General Ulcer CM Notes Start: 08/03/20 13:35 Freq: Status: Active Protocol: Activity Type Activity Date Activity User E-Sign Co-Sign Detail Recorded Client Recorded Date Recorded By Document 08/03/20 13:48 [id number] 08/03/20 13:50 08/03/20 13:48 Wound Center Nurse 2 #4 R Lat Lower Leg -Time 13:48 -Correct Patient Yes -Correct Side, Site, Position Yes -Correct Procedure Yes -Procedure Performed Yes -Type of Procedure Debridement -Clinical Debridement Epidermis / Dermis -Tissue Removed Epidermis, Dermis -Post Debridement (cm) - Length 4.6 -Post Debridement (cm) - Width 0.5 -Post Debridement (cm) - Depth 1 -Total Square (Post) (cm) 2.30 -Area of Debridement (cm) - Length 4.6 -Area of Debridement (cm) - Width 0.5 -Total Square (Area) (cm) 2.30 -Tunneling No -Undermining/Tunneling No -Circular Undermining No -Wound/Ulcer Outcome Not Healed -Ulcer Cleansing Rinsed/ Irrigated with Saline -Foul Odor after Cleansing No -Bioengineered Tissue No -Bleeding Controlled with Pressure -Offloading No -Treatment Response Procedure Tolerated Well -Debridement - Open, 1st 20sq cm Yes Pain Scale: 0-10 Numeric Is Patient Pain Free? Yes WC - Nurse 3 - General Ulcer D/C NN Start: 08/03/20 13:35 Freq: Status: Active Protocol: Activity Type Activity Date Activity User E-Sign Co-Sign Detail Recorded Client Recorded Date Recorded By Document 08/03/20 13:55 [id number] 08/03/20 13:57 RB 08/03/20 13:55 Wound Care Nurse 3 #4 R Lat Lower Leg -Ulcer Cleansing Rinsed/ Irrigated with Saline -Primary Dressing Applied Aquacel AG 4x4 -Primary Dressing Covered/Secured with Dry Gauze, Secured with Tape -Aquacel AG 4x4 1 Right -Tubular Bandage Single Layer -Size of Tubigrip Used Size D -Size D ($) 1 Treatment Response Procedure Tolerated Well Vital Signs Blood Pressure (90/60-120/80) 160/78 H Blood Pressure Mean (mm Hg) 105 Source Monitor Position Semi-Fowlers Blood Pressure Location Left Arm WC - Visit Discharge Discharge Condition Stable Ambulatory Status Ambulatory,Cane Transportation Private Auto Medication Reconcilliation completed & No provided to patient/care provider Clinical Summary of Care Provided Yes Wound debrided: lateral leg Laterality: Right Type of Debridement: Selective debridement Anesthesia Used: 5% Lidocaine Gel Depth: Down to and including healthy tissue, in the subcutaneous layer Percentage of wound debrided: 100 Instrument Used: 3mm curette Tissue Removed: fibrous, devitalized tissue, biofilm, slough Amount of bleeding with debridement: Mild Bleeding Controlled with: Pressure Patient tolerated procedure well Assessment/Plan Active Problems (Last Reviewed 01/29/19 @ 16:[address] Faraz Connolly MD) Ulcer of right lower extremity with fat layer exposed (Chronic) Delayed wound healing (Chronic) Foot drop, right (Chronic) Pain in right lower leg (Chronic) Other specified peripheral vascular diseases (Chronic) Assessment: Prior right leg ulcer with muscle exposed. osteomyelitis work up was completed and negative at this time. Leg edema and rule out venous insufficiency. Malnutrition. Discontinued tobacco use. Walking difficulty. Pain in right limb lower. Contraction right lower extremity at ankle level. Right dropfoot. delayed healing status Plan: This is a 70-year-old male with multiple medical problems, as discussed above. He had a prior fasciotomy site which was performed years ago as a result of a compartment syndrome secondary to acute arterial ischemia. The patient developed a chronic foot drop as result. This site did eventually heal and has now reopened with continued delayed healing. Subcutaneous excisional debridement was performed as noted in the clinical panel to control recurrent bioburden development. 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 He is undergone at least 2 right lower extremity vascularization procedures in the right lower extremity by Dr. Scot Yarbrough, the most recent of which was performed in November 2019. The case was recently reviewed with Dr. Yarbrough and he is considered optimized at this time with no additional intervention recommendations. 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 A culture performed on February 10, 2020, is was positive for Corynebacterium stratum and coagulase negative staph. He was started on antibiotics and saw infectious disease for this. He completed a 14-day course of linezolid orally which should cover his bacterial growth and penetrate bone well. He had MRI performed at the [facility] (mar 16). The report and images were reviewed and it is noted osteomyelitis was not seen. Additional antibiotics and potential hyperbaric oxygen therapy will be considered in the future only if there is a status change. He does not meet qualifying standard in regards to his diagnosis to move forward at this time. He understands he is at risk for limb loss including amputation. To continue to change dressing daily with aqua cell AG and to wash with soap and water. To avoid soaking. I also still recommend a nutrition referral and it is noted he did not get this scheduled. We addressed pain today and I am not suspecting this is musculoskeletal pain. He was advised to continue with his ankle. I recommend he continue to follow-up with pain management and reduction in narcotic medication is also recommended to reduce chance of addiction. It is not clear why he stopped his gabapentin and this may have contributed to his increase in pain as well. He was advised to resume use under the management of his pain management physician. I answered all of his questions. To return to wound healing center in 3 to 4 weeks. He would like to continue with a palliative type wound care program at this time. Note: [employer] speech recognition oil burner mechanic software was used to create portions of this document. Sound-alike and misspelled words, as well as other oil burner mechanic errors may be contained in the documentation. The problems addressed require a low medical decision making level which includes two or more minor problems, a stable chronic illness, or an acute uncomplicated illness or injury. The medical decision making level is low. There is noted low risk of morbidity after considering this treatment plan and diagnostic data. ------Macra 2020: Reviewed today: Medications reviewed and reconciled was 160/78 management was briefly reviewed and recommended for improvement. BMI is 27.2. He denies falls with injuries with past year. Currently and none. He was a former smoker.
== END 2020-08-07 23:59 ==
LOC: WC 13:31
PROVIDERS: Family Provider Family Medicine; PCP Family Medicine; Referring Provider Podiatrist; Visit Provider Podiatrist
DX: L97.815 Non-pressure chronic ulcer of other part of right lower leg with muscle involvement without evidence of necrosis (principal); R60.0 Localized edema; E46 Unspecified protein-calorie malnutrition; R26.2 Difficulty in walking, not elsewhere classified; M79.604 Pain in right leg; M24.571 Contracture, right ankle; M21.371 Foot drop, right foot; Z68.27 Body mass index [BMI] 27.0-27.9, adult; Z87.891 Personal history of nicotine dependence
CPT/HCPCS: 97597

== ENCOUNTER 2020-08-31 13:30 | Outpatient (RCR) | payer MEDICARE, MEDICAID, SELFPAY ==
[2020-08-08 00:16] VITALS: BP 160/78; PULSE 60; RESP 18; TEMP 37; O2SAT 96
[2020-08-31 13:44] VITALS: BP 155/75; PULSE 71; RESP 18; TEMP 37.2; BMI 25.2
--- NOTE | 2020-08-31 17:54 | PN.PCM_ITS ---
(1) Ulcer of right lower extremity with muscle involvement without evidence of necrosis Status: Chronic Code(s): L97.915 - Non-pressure chronic ulcer of unspecified part of right lower leg with muscle involvement without evidence of necrosis (2) Delayed wound healing Status: Chronic Code(s): T14.8XXD - Other injury of unspecified body region, subsequent encounter (3) Foot drop, right Status: Chronic Code(s): M21.371 - Foot drop, right foot (4) Difficulty walking Status: Chronic Code(s): R26.2 - Difficulty in walking, not elsewhere classified (5) Pain in right lower leg Status: Chronic Code(s): M79.661 - Pain in right lower leg (6) Other specified peripheral vascular diseases Status: Chronic Code(s): I73.89 - Other specified peripheral vascular diseases Type of Wound Date of Service: 08/31/20 Chief Complaint: Chronic, nonhealing wound of the right leg History of Wound: This 70-year-old male follows up for chronic right leg ulcer. He has recent increased pain and denies redness or odor. He change the dressing with Aquacel ag. He denies fever, chill, nausea, vomiting. He has exhausted all arterial vascular surgery procedures and is optimized at this time. He has a history of recurrent infections and bacterial contamination. He denies infection concerns at this time and changes his dressing daily with silver product. He wears an AFO. He does have continued rest pain. He is continuing to follow-up with pain management and relates they are reducing his narcotic medication. He also has increased back disc injury type pain and is considering having a sympathetic nerve block. He is also discontinued gabapentin on his own he is he tried it for couple of weeks and related that it did not help. His pain occurs at rest and during activity. Progress of Wound: Stable - Physical Exam Vital Signs Temp Pulse Resp BP Pulse Ox 98.9 F 71 18 155/75 H 96 08/31/20 13:44 08/31/20 13:44 08/31/20 13:44 08/31/20 13:44 08/08/20 00:16 General: Alert, Oriented x3, Cooperative, No apparent distress HEENT: Atraumatic Extremities: No cyanosis, No edema, Capillary Refill Less than 3 Seconds, No Calf Tenderness, Diminished Peripheral Pulses Skin: Ulcer/ Wound - No purulence, erythema, streaking, odor, infection Wound Measurements and Assessment WC - Nurse 1 - General Ulcer Measurement Start: 08/31/20 13:44 Freq: Status: Active Protocol: Activity Type Activity Date Activity User E-Sign Co-Sign Detail Recorded Client Recorded Date Recorded By Document 08/31/20 13:44 DL [id number] 08/31/20 13:50 DL 08/31/20 13:44 Wound Center Nurse 1 [Ulcer Assessment] #4 R Lat Lower Leg -Current Size (cm) - Length 4.5 -Current Size (cm) - Width 0.5 -Total Square Cm 2.25 -Photo Taken No -Undermining/Tunneling Starts (O' 1 clock) -Undermining/Tunneling Ends (O'clock) 5 -Maximum Distance (cm) 0.7 -Exudate Amt Small -Exudate Type Serosanguineous -Wound Margin Thickened & Rolled Under -Granulation Amt None Present (0 %) -Necrosis Amt Large (67-100%) -Necrotic Tissue Type Adherent Slough -Structure Exposed N/A -Texture (Denisa-wound Skin Appearance) Scarring -Moisture (Denisa-wound Skin Appearance No Abnormality ) -Color (Denisa-wound Skin Appearance) Rubor -Temperature (Denisa-wound Skin No Abnormality Appearance) (Pt Warm) -Tenderness on Palpation (Denisa-wound Yes Skin Appearance) -Ulcer Cleansing Rinsed/ Irrigated with Saline -Foul Odor after Cleansing No -Anesthetic Used 4% Lidocaine Solution [Edema Assessment] -Right Calf (cm) 32.3 -Right Ankle (cm) 19.8 WC - Nurse 2 - General Ulcer CM Notes Start: 08/31/20 13:44 Freq: Status: Active Protocol: Activity Type Activity Date Activity User E-Sign Co-Sign Detail Recorded Client Recorded Date Recorded By Document 08/31/20 14:21 BLANKA [id number] 08/31/20 14:26 BLANKA 08/31/20 14:21 Wound Center Nurse 2 [Procedure/Treatment] #4 R Lat Lower Leg -Time 14:21 -Correct Patient Yes -Correct Side, Site, Position Yes -Correct Procedure Yes -Procedure Performed Yes -Type of Procedure Debridement -Clinical Debridement Epidermis / Dermis -Tissue Removed Epidermis, Dermis -Post Debridement (cm) - Length 4.5 -Post Debridement (cm) - Width 0.5 -Post Debridement (cm) - Depth 0.7 -Total Square (Post) (cm) 2.25 -Area of Debridement (cm) - Length 4.5 -Area of Debridement (cm) - Width 0.5 -Total Square (Area) (cm) 2.25 -Tunneling No -Undermining/Tunneling No -Circular Undermining No -Wound/Ulcer Outcome Not Healed -Ulcer Cleansing Rinsed/ Irrigated with Saline -Foul Odor after Cleansing No -Bioengineered Tissue No -Bleeding Controlled with Pressure -Offloading No -Treatment Response Procedure Tolerated Well -Debridement - Open, 1st 20sq cm Yes -Debridement - Subq, 1st 20sq cm No [See Physician Procedure note for Specifics] Pain Scale: 0-10 Numeric [Pain] -Is Patient Pain Free? Yes - Nurse 3 - General Ulcer D/C NN Start: 08/31/20 13:44 Freq: Status: Active Protocol: Activity Type Activity Date Activity User E-Sign Co-Sign Detail Recorded Client Recorded Date Recorded By Document 08/31/20 14:36 [facility] [id number] 08/31/20 14:37 [facility] 08/31/20 14:36 Wound Care Nurse 3 [Wound Dressing] #4 R Lat Lower Leg -Ulcer Cleansing Rinsed/ Irrigated with Saline -Foul Odor after Cleansing No -Primary Dressing Applied Aquacel AG 2x2 -Primary Dressing Covered/Secured Dry Gauze, with Secured with Tape -Aquacel AG 2x2 1 [Compression Applied] Right -Tubular Bandage Single Layer -Size of Tubigrip Used Size D -Size D ($) 3 -Stockings Yes -Other sent extra with ; only comes q few weeks [Post Procedure Tolerated] -Treatment Response Procedure Tolerated Well Pain Scale: 0-10 Numeric [Pain] -Is Patient Pain Free? Yes - Visit Discharge [Visit Discharge Information] -Discharge Condition Stable -Ambulatory Status Ambulatory,Cane -Transportation Private Auto Musculoskeletal: Muscle Wasting Neurological: Sensory exam intact to light touch and pain, - Psych/Mental Status: Normal Affect, Appropriate Debridement Note Post-Debridement Measurements/Treatment - Nurse 2 - General Ulcer CM Notes Start: 08/31/20 13:44 Freq: Status: Active Protocol: Activity Type Activity Date Activity User E-Sign Co-Sign Detail Recorded Client Recorded Date Recorded By Document 08/31/20 14:21 [id number] 08/31/20 14:26 JF 08/31/20 14:21 Wound Center Nurse 2 #4 R Lat Lower Leg -Time 14:21 -Correct Patient Yes -Correct Side, Site, Position Yes -Correct Procedure Yes -Procedure Performed Yes -Type of Procedure Debridement -Clinical Debridement Epidermis / Dermis -Tissue Removed Epidermis, Dermis -Post Debridement (cm) - Length 4.5 -Post Debridement (cm) - Width 0.5 -Post Debridement (cm) - Depth 0.7 -Total Square (Post) (cm) 2.25 -Area of Debridement (cm) - Length 4.5 -Area of Debridement (cm) - Width 0.5 -Total Square (Area) (cm) 2.25 -Tunneling No -Undermining/Tunneling No -Circular Undermining No -Wound/Ulcer Outcome Not Healed -Ulcer Cleansing Rinsed/ Irrigated with Saline -Foul Odor after Cleansing No -Bioengineered Tissue No -Bleeding Controlled with Pressure -Offloading No -Treatment Response Procedure Tolerated Well -Debridement - Open, 1st 20sq cm Yes -Debridement - Subq, 1st 20sq cm No Pain Scale: 0-10 Numeric Is Patient Pain Free? Yes - Nurse 3 - General Ulcer D/C NN Start: 08/31/20 13:44 Freq: Status: Active Protocol: Activity Type Activity Date Activity User E-Sign Co-Sign Detail Recorded Client Recorded Date Recorded By Document 08/31/20 14:36 [facility] [id number] 08/31/20 14:37 [facility] 08/31/20 14:36 Wound Care Nurse 3 #4 R Lat Lower Leg -Ulcer Cleansing Rinsed/ Irrigated with Saline -Foul Odor after Cleansing No -Primary Dressing Applied Aquacel AG 2x2 -Primary Dressing Covered/Secured with Dry Gauze, Secured with Tape -Aquacel AG 2x2 1 Right -Tubular Bandage Single Layer -Size of Tubigrip Used Size D -Size D ($) 3 -Stockings Yes -Other sent extra with ; only comes q few weeks Treatment Response Procedure Tolerated Well Pain Scale: 0-10 Numeric Is Patient Pain Free? Yes - Visit Discharge Discharge Condition Stable Ambulatory Status Ambulatory,Cane Transportation Private Auto Wound debrided: lateral leg Laterality: Right Type of Debridement: Selective debridement Anesthesia Used: 5% Lidocaine Gel Depth: in the subcutaneous layer Percentage of wound debrided: 100 Instrument Used: #15 blade Tissue Removed: fibrous, biofilm, slough Severity: Fat Layer Exposed Amount of bleeding with debridement: Mild - scant Bleeding Controlled with: Pressure Patient tolerated procedure well Assessment/Plan Active Problems (Last Reviewed 01/29/19 @ 16:[address] Faraz Connolly MD) Ulcer of right lower extremity with muscle involvement without evidence of necrosis (Chronic) Delayed wound healing (Chronic) Foot drop, right (Chronic) Difficulty walking (Chronic) Pain in right lower leg (Chronic) Other specified peripheral vascular diseases (Chronic) Assessment: Prior right leg ulcer with muscle exposed. osteomyelitis work up was completed and negative at this time. Leg edema and rule out venous insufficiency. Malnutrition. Discontinued tobacco use. Walking difficulty. Pain in right limb lower. Contraction right lower extremity at ankle level. Right dropfoot. delayed healing status. Chronic pain Plan: This is a 70-year-old male with multiple medical problems, as discussed above. He had a prior fasciotomy site which was performed remotely as a result of a compartment syndrome secondary to acute arterial ischemia. The patient developed a chronic foot drop as result. This site did eventually heal and has now reopened with continued delayed healing. Selective debridement was performed as noted in the clinical panel to control recurrent bioburden development. 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 He is undergone at least 2 right lower extremity vascularization procedures in the right lower extremity by Dr. Scot Yarbrough, the most recent of which was performed in November 2019. The case was recently reviewed with Dr. Yarbrough and he is considered optimized at this time with no additional intervention recommendations. He understands he is at risk for limb loss including amputation. He does not want to proceed forward with an amputation at this time and elects to proceed forward with a palliative wound care plan. To continue to change dressing daily with aqua cell AG and to wash with soap and water. To avoid soaking. I also still recommend a nutrition referral and it is noted he did not get this scheduled. We addressed pain today and I am not suspecting this is musculoskeletal pain. He was advised to continue with his ankle foot orthotic brace. I recommend he continue to follow-up with pain management and reduction in narcotic medication is also recommended to reduce chance of addiction. To continue gabapentin management and considered sympathetic nerve block with pain management. I answered all of his questions. To return to wound healing center in 3 to 4 weeks. He would like to continue with a palliative type wound care program at this time. Note: [employer] speech recognition senior licensing manager software was used to create portions of this document. Sound-alike and misspelled words, as well as other senior licensing manager errors may be contained in the documentation. The medical decision making level is moderate. There is noted moderate risk of morbidity after considering this treatment plan and diagnostic data. Considerations were given to prescription management, decisions regarding surgical options, or social determinants of health. The problems addressed require a moderate decision making level which includes one or more chronic illnesses (w/ exacerbation, progression, or side effects), two or more stable chronic illnesses, one undiagnosed new problem w/ uncertain prognosis, one acute illness with systemic symptoms, or one acute complicated injury. ------Macra 2020: Reviewed today: Medications reviewed and reconciled was 160/78 management was briefly reviewed and recommended for improvement. BMI is 27.2. He denies falls with injuries with past year. Currently and none. He was a former smoker.
== END 2020-09-07 23:59 ==
LOC: WC 13:30
PROVIDERS: Family Provider Family Medicine; PCP Family Medicine; Referring Provider Podiatrist; Visit Provider Podiatrist
DX: I73.89 Other specified peripheral vascular diseases (principal); M79.661 Pain in right lower leg; L97.815 Non-pressure chronic ulcer of other part of right lower leg with muscle involvement without evidence of necrosis; M21.371 Foot drop, right foot; Z87.891 Personal history of nicotine dependence; R60.0 Localized edema
CPT/HCPCS: 97597

== ENCOUNTER 2020-09-28 14:00 | Outpatient (RCR) | payer MEDICARE, MEDICAID, SELFPAY ==
[2020-09-08 00:27] VITALS: BP 155/75; PULSE 71; RESP 18; TEMP 37.2; O2SAT 96
[2020-09-28 13:59] VITALS: BP 165/91; PULSE 63; RESP 16; TEMP 36.3; BMI 25.2
--- NOTE | 2020-09-28 14:57 | PCM.WC.PN ---
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 He has recent increased pain and denies redness or odor. He change the dressing with Aquacel ag. He denies fever, chill, nausea, vomiting. He has exhausted all arterial vascular surgery procedures and is optimized at this time. He has a history of recurrent infections and bacterial contamination. He denies infection concerns at this time and changes his dressing daily with silver product. He wears an AFO. He does have continued rest pain. He is continuing to follow-up with pain management and relates they are reducing his narcotic medication. He also has increased back disc injury type pain and is considering having a sympathetic nerve block. He is currently comfortable today. Progress of Wound: Stable - Physical Exam Vital Signs Temp Pulse Resp BP Pulse Ox 97.3 F L 63 16 165/91 H 96 09/28/20 13:59 09/28/20 13:59 09/28/20 13:59 09/28/20 13:59 09/08/20 00:27 General: Alert, Oriented x3, Cooperative, No apparent distress Extremities: No cyanosis, Capillary Refill Less than 3 Seconds, No Calf Tenderness, Diminished Peripheral Pulses, Edema - Scant Skin: Ulcer/ Wound - No purulence, erythema, string, odor, infection Wound Measurements and Assessment WC - Nurse 1 - General Ulcer Measurement Start: 09/28/20 13:59 Freq: Status: Active Protocol: Activity Type Activity Date Activity User E-Sign Co-Sign Detail Recorded Client Recorded Date Recorded By Document 09/28/20 13:59 [facility] [id number] 09/28/20 14:06 [facility] 09/28/20 13:59 Wound Center Nurse 1 [Ulcer Assessment] #4 R Lat Lower Leg -Combined with other wound No -Current Size (cm) - Length 4.6 -Current Size (cm) - Width 0.4 -Current Size (cm) - Depth 0.6 -Total Square Cm 1.84 -Photo Taken No -Epithelialization None Present -Tunneling No -Undermining/Tunneling No -Circular Undermining No -Exudate Amt Medium -Exudate Type Serosanguineous -Wound Margin Thickened & Rolled Under -Granulation Amt Small (1-33%) -Granulation Quality [place] -Slough/Fibrin Yes -Necrosis Amt Large (67-100%) -Necrotic Tissue Type Adherent Slough -Texture (Denisa-wound Skin Appearance) Assessed, Scarring -Moisture (Denisa-wound Skin Appearance Assessed ) -Color (Denisa-wound Skin Appearance) Assessed -Temperature (Denisa-wound Skin No Abnormality Appearance) (Pt Warm) -Tenderness on Palpation (Denisa-wound Yes Skin Appearance) -Ulcer Cleansing Rinsed/ Irrigated with Saline -Foul Odor after Cleansing No -Anesthetic Used 4% Lidocaine Solution WC - Nurse 2 - General Ulcer CM Notes Start: 09/28/20 13:59 Freq: Status: Active Protocol: Activity Type Activity Date Activity User E-Sign Co-Sign Detail Recorded Client Recorded Date Recorded By Document 09/28/20 14:35 [id number] 09/28/20 14:37 BLANKA 09/28/20 14:35 Wound Center Nurse 2 [Procedure/Treatment] -Time 14:35 -Correct Patient Yes -Correct Side, Site, Position Yes -Correct Procedure Yes -Procedure Performed Yes -Type of Procedure Debridement -Clinical Debridement Subcutaneous -Tissue Removed Subcutaneous -Post Debridement (cm) - Length 4.6 -Post Debridement (cm) - Width 0.5 -Post Debridement (cm) - Depth 0.6 -Total Square (Post) (cm) 2.30 -Area of Debridement (cm) - Length 4.6 -Area of Debridement (cm) - Width 0.5 -Total Square (Area) (cm) 2.30 -Tunneling No -Undermining/Tunneling No -Circular Undermining No -Wound/Ulcer Outcome Not Healed -Ulcer Cleansing Rinsed/ Irrigated with Saline -Foul Odor after Cleansing No -Bioengineered Tissue No -Bleeding Controlled with Pressure -Offloading No -Treatment Response Procedure Tolerated Well -Debridement - Subq, 1st 20sq cm Yes [See Physician Procedure note for Specifics] Pain Scale: 0-10 Numeric [Pain] -Is Patient Pain Free? Yes - Nurse 3 - General Ulcer D/C NN Start: 09/28/20 13:59 Freq: Status: Active Protocol: Activity Type Activity Date Activity User E-Sign Co-Sign Detail Recorded Client Recorded Date Recorded By Document 09/28/20 14:44 [facility] [id number] 09/28/20 14:44 [facility] 09/28/20 14:44 Wound Care Nurse 3 [Wound Dressing] #4 R Lat Lower Leg -Ulcer Cleansing Rinsed/ Irrigated with Saline -Foul Odor after Cleansing No -Primary Dressing Applied Aquacel AG 4x4 -Primary Dressing Covered/Secured Dry Gauze, with Secured with Tape -Aquacel AG 4x4 1 [Post Procedure Tolerated] -Treatment Response Procedure Tolerated Well Pain Scale: 0-10 Numeric [Pain] -Is Patient Pain Free? Yes - Visit Discharge [Visit Discharge Information] -Discharge Condition Stable -Ambulatory Status Ambulatory,Cane -Transportation Private Auto Musculoskeletal: Muscle Wasting, - - Weakness consistent with dropfoot Neurological: Sensory exam intact to light touch and pain Psych/Mental Status: Normal Affect Debridement Note Post-Debridement Measurements/Treatment - Nurse 2 - General Ulcer CM Notes Start: 09/28/20 13:59 Freq: Status: Active Protocol: Activity Type Activity Date Activity User E-Sign Co-Sign Detail Recorded Client Recorded Date Recorded By Document 09/28/20 14:35 [id number] 09/28/20 14:37 BLANKA 09/28/20 14:35 Wound Center Nurse 2 #4 R Lat Lower Leg -Time 14:35 -Correct Patient Yes -Correct Side, Site, Position Yes -Correct Procedure Yes -Procedure Performed Yes -Type of Procedure Debridement -Clinical Debridement Subcutaneous -Tissue Removed Subcutaneous -Post Debridement (cm) - Length 4.6 -Post Debridement (cm) - Width 0.5 -Post Debridement (cm) - Depth 0.6 -Total Square (Post) (cm) 2.30 -Area of Debridement (cm) - Length 4.6 -Area of Debridement (cm) - Width 0.5 -Total Square (Area) (cm) 2.30 -Tunneling No -Undermining/Tunneling No -Circular Undermining No -Wound/Ulcer Outcome Not Healed -Ulcer Cleansing Rinsed/ Irrigated with Saline -Foul Odor after Cleansing No -Bioengineered Tissue No -Bleeding Controlled with Pressure -Offloading No -Treatment Response Procedure Tolerated Well -Debridement - Subq, 1st 20sq cm Yes Pain Scale: 0-10 Numeric Is Patient Pain Free? Yes - Nurse 3 - General Ulcer D/C NN Start: 09/28/20 13:59 Freq: Status: Active Protocol: Activity Type Activity Date Activity User E-Sign Co-Sign Detail Recorded Client Recorded Date Recorded By Document 09/28/20 14:44 [facility] [id number] 09/28/20 14:44 [facility] 09/28/20 14:44 Wound Care Nurse 3 #4 R Lat Lower Leg -Ulcer Cleansing Rinsed/ Irrigated with Saline -Foul Odor after Cleansing No -Primary Dressing Applied Aquacel AG 4x4 -Primary Dressing Covered/Secured with Dry Gauze, Secured with Tape -Aquacel AG 4x4 1 Treatment Response Procedure Tolerated Well Pain Scale: 0-10 Numeric Is Patient Pain Free? Yes - Visit Discharge Discharge Condition Stable Ambulatory Status Ambulatory,Cane Transportation Private Auto Wound debrided: leg Laterality: Right Type of Debridement: Excisional debridement Anesthesia Used: 5% Lidocaine Gel Depth: in the subcutaneous layer Percentage of wound debrided: 100 Instrument Used: 3mm curette Tissue Removed: fibrous, devitalized subcutaneous, biofilm, slough Severity: Fat Layer Exposed Amount of bleeding with debridement: Mild Bleeding Controlled with: Pressure Patient tolerated procedure well Assessment/Plan Assessment: I reviewed and discussed his case. Prior and continued right leg ulcer with muscle exposed was evaluated today. It is noted he had osteomyelitis work up that was completed and negative. Leg edema and rule out venous insufficiency. Malnutrition. Discontinued tobacco use. Walking difficulty. Pain in right limb lower. Contraction right lower extremity at ankle level. Right dropfoot. delayed healing status. Chronic pain Plan: This is a 70-year-old male with multiple medical problems, as discussed above. He had a prior fasciotomy site which was performed remotely as a result of a compartment syndrome secondary to acute arterial ischemia. The patient developed a chronic foot drop as result. This site did eventually heal and has now reopened with continued delayed healing. Selective debridement was performed as noted in the clinical panel to control recurrent bioburden development. 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 He is undergone at least 2 right lower extremity vascularization procedures in the right lower extremity by Dr. Scot Yarbrough, the most recent of which was performed in November 2019. The case was recently reviewed with Dr. Yarbrough and he is considered optimized at this time with no additional intervention recommendations. He understands he is at risk for limb loss including amputation. He does not want to proceed forward with an amputation at this time and elects to proceed forward with a palliative wound care plan. To continue to change dressing daily with aqua cell AG and to wash with soap and water. To avoid soaking. I also still recommend a nutrition referral and it is noted he did not get this scheduled. His pain is controlled today. He was advised to continue with his ankle foot orthotic brace. I recommend he continue to follow-up with pain management and reduction in narcotic medication is also recommended to reduce chance of addiction. To continue gabapentin management and considered sympathetic nerve block with pain management. I answered all of his questions. To return to wound healing center in 3 to 4 weeks. He would like to continue with a palliative type wound care program at this time. Note: [employer] speech recognition wellness guide software was used to create portions of this document. Sound-alike and misspelled words, as well as other wellness guide errors may be contained in the documentation. ------Macra 2020: Reviewed today: Medications reviewed and reconciled. BMI is 27.2. He denies falls with injuries with past year. Currently and none. He was a former smoker.
== END 2020-10-07 23:59 ==
LOC: WC 14:00
PROVIDERS: Family Provider Family Medicine; PCP Family Medicine; Referring Provider Podiatrist; Visit Provider Podiatrist
DX: L97.812 Non-pressure chronic ulcer of other part of right lower leg with fat layer exposed (principal); R60.0 Localized edema; Z87.891 Personal history of nicotine dependence; M79.609 Pain in unspecified limb; R26.2 Difficulty in walking, not elsewhere classified; M21.371 Foot drop, right foot
CPT/HCPCS: 11042

== ENCOUNTER 2020-10-26 14:00 | Outpatient (RCR) | payer MEDICARE, MEDICAID, SELFPAY ==
[2020-10-08 00:28] VITALS: BP 165/91; PULSE 63; RESP 16; TEMP 36.3; O2SAT 96
[2020-10-26 14:10] VITALS: BP 142/78; PULSE 72; RESP 18; TEMP 37.6; BMI 25.2
--- NOTE | 2020-10-26 22:25 | PCM.WC.PN ---
History of Present Illness Date of Service: 10/29/20 Chief Complaint: Chronic, nonhealing wound of the right leg History of Wound: This 70-year-old male follows up for chronic right leg ulcer. He has recent increased pain and denies redness or odor. He change the dressing with Aquacel ag. He denies fever, chill, nausea, vomiting. He has exhausted all arterial vascular surgery procedures and is optimized at this time. He has a history of recurrent infections and bacterial contamination. He denies infection concerns at this time and changes his dressing daily with silver product. He wears an AFO. His pain is controlled today. Progress of Wound: Stable Objective Data Objective Data Vital Signs: Vital Signs Temp Pulse Resp BP Pulse Ox 99.6 F H 72 18 142/78 H 96 10/26/20 14:10 10/26/20 14:10 10/26/20 14:10 10/26/20 14:10 10/08/20 00:28 Weight: 91.138 kg Body Mass Index (BMI) 25.2 Physical Exam Const alert and oriented x3 General Appearance: cooperative HEENT normocephalic Extremity Extremity Narrative: No calf tenderness Diminished pulses Muscle wasting noted Diminished ankle dorsiflexion and eversion is consistent with his dropfoot status General Extremity: edema and no tenderness to palpation of joints or extremities; Negative for cyanosis Skin Skin Narrative: no purulence, no streaking, no odor, no infection. Lateral right leg deep wound extends down to the fascial layer with granular and fibrous base. No necrosis. No direct probe to bone. The adjacent skin is hairless and atrophic. 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 Any new allergies or adverse reactions No Had a fall/change in ADL's that may No increase risk of falls Signs or symptoms of abuse and/or No neglect since last visit Have you been in the hospital since your No last visit? Has dressing in place as prescribed No Has compression in place as prescribed Yes Has offloadiing in place as prescribed N/A Experienced any changes in pain level or Yes management Pain Scale: 0-10 Numeric Is Patient Pain Free? Yes WC - Nurse 1 - General Ulcer Measurement Start: 10/26/20 14:06 Freq: Status: Active Protocol: Activity Type Activity Date Activity User E-Sign Co-Sign Detail Recorded Client Recorded Date Recorded By Document 10/26/20 14:10 DL [id number] 10/26/20 14:17 DL 10/26/20 14:10 Wound Center Nurse 1 #4 R Lat Lower Leg -Current Size (cm) - Length 4.4 -Current Size (cm) - Width 0.5 -Current Size (cm) - Depth 0.6 -Total Square Cm 2.20 -Photo Taken No -Exudate Amt Small -Exudate Type Serosanguineous -Wound Margin Thickened & Rolled Under -Granulation Amt None Present (0 %) -Necrosis Amt Large (67-100%) -Necrotic Tissue Type Eschar -Structure Exposed N/A -Texture (Denisa-wound Skin Appearance) Scarring -Moisture (Denisa-wound Skin Appearance) No Abnormality -Temperature (Denisa-wound Skin No Abnormality Appearance) (Pt Warm) -Tenderness on Palpation (Denisa-wound No Skin Appearance) -Ulcer Cleansing Wound Cleanser -Foul Odor after Cleansing No -Anesthetic Used 4% Lidocaine Solution Right Calf (cm) 32 Right Ankle (cm) 19.6 WC - Nurse 2 - General Ulcer CM Notes Start: 10/26/20 14:06 Freq: Status: Active Protocol: Activity Type Activity Date Activity User E-Sign Co-Sign Detail Recorded Client Recorded Date Recorded By Document 10/26/20 14:38 BLANKA [id number] 10/26/20 14:40 BLANKA 10/26/20 14:38 Wound Center Nurse 2 #4 R Lat Lower Leg -Time 14:39 -Correct Patient Yes -Correct Side, Site, Position Yes -Correct Procedure Yes -Procedure Performed Yes -Type of Procedure Debridement -Clinical Debridement Subcutaneous -Tissue Removed Subcutaneous -Post Debridement (cm) - Length 4.5 -Post Debridement (cm) - Width 0.5 -Post Debridement (cm) - Depth 0.6 -Total Square (Post) (cm) 2.25 -Area of Debridement (cm) - Length 4.5 -Area of Debridement (cm) - Width 0.5 -Total Square (Area) (cm) 2.25 -Tunneling No -Undermining/Tunneling No -Circular Undermining No -Wound/Ulcer Outcome Not Healed -Ulcer Cleansing Rinsed/ Irrigated with Saline -Foul Odor after Cleansing No -Bioengineered Tissue No -Bleeding Controlled with Pressure -Offloading No -Treatment Response Procedure Tolerated Well -Debridement - Subq, 1st 20sq cm Yes Pain Scale: 0-10 Numeric Is Patient Pain Free? Yes - Nurse 3 - General Ulcer D/C NN Start: 10/26/20 14:06 Freq: Status: Active Protocol: Activity Type Activity Date Activity User E-Sign Co-Sign Detail Recorded Client Recorded Date Recorded By Document 10/26/20 14:51 NAWAF [id number] 10/26/20 14:52 NAWAF 10/26/20 14:51 Wound Care Nurse 3 #4 R Lat Lower Leg -Ulcer Cleansing Rinsed/ Irrigated with Saline -Primary Dressing Applied Aquacel Extra -Primary Dressing Covered/Secured with Dry Gauze,Dry Gauze & Roll Gauze,Secured with Tape -Aquacel Extra 1 Pain Scale: 0-10 Numeric Is Patient Pain Free? Yes WC - Visit Discharge Discharge Condition Stable Ambulatory Status Cane Transportation Private Auto Wound debrided: right lateral leg Wound Grade/Stage: Type of Debridement: Excisional debridement Anesthesia Used: 4% Lidocaine Solution Depth: in the subcutaneous layer Percentage of wound debrided: 100 Instrument Used: #15 blade Tissue Removed: fibrous, devitalized subcutaneous, biofilm, slough Severity: Fat Layer Exposed Amount of bleeding with debridement: Mild Bleeding Controlled with: Pressure Patient tolerated procedure: Patient tolerated procedure well Assessment/Plan Assessment/Plan (1) Ulcer of right lower extremity with muscle involvement without evidence of necrosis: CODE(S): Code(s): L97.915 - Non-pressure chronic ulcer of unspecified part of right lower leg with muscle involvement without evidence of necrosis (2) Malnutrition: CODE(S): Code(s): E46 - Unspecified protein-calorie malnutrition (3) Difficulty walking: CODE(S): Code(s): R26.2 - Difficulty in walking, not elsewhere classified (4) Foot drop, right: CODE(S): Code(s): M21.371 - Foot drop, right foot PLAN: This is a 70-year-old male with multiple medical problems, as discussed above.? He had a prior fasciotomy site which was performed remotely as a result of a compartment syndrome secondary to acute arterial ischemia.? The patient developed a chronic foot drop as result.? This site did eventually heal and has now reopened with continued delayed healing. Subcutaneous excisional debridement was performed as noted in the clinical panel to control recurrent bioburden development.? 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 He is undergone at least 2 right lower extremity vascularization procedures in the right lower extremity by Dr. Scot Yarbrough, the most recent of which was performed in November 2019.? The case was recently reviewed with Dr. Yarbrough and he is considered optimized at this time with no additional intervention recommendations.? He understands he is at risk for limb loss including amputation. He does not want to proceed forward with an amputation at this time and elects to proceed forward with a palliative wound care plan.? To continue to change dressing daily with [employer] cell As Seen on TV and to wash with soap and water.? To avoid soaking. ? ? I also still recommend a nutrition referral.? His pain is controlled today.?I recommend he continue to follow-up with pain management and reduction in narcotic medication is also recommended to reduce chance of addiction. To continue gabapentin management and considered sympathetic nerve block with pain management. He was advised to continue with his ankle foot orthotic brace.? I answered all of his questions.? To return to wound healing center in 3 to 4 weeks.? He would like to continue with a palliative type wound care program at this time.? Note: [employer] speech recognition programming instructor software was used to create portions of this document. Sound-alike and misspelled words, as well as other programming instructor errors may be contained in the documentation.?
== END 2020-11-07 23:59 ==
LOC: WC 14:00
PROVIDERS: Family Provider Family Medicine; PCP Family Medicine; Referring Provider Podiatrist; Visit Provider Podiatrist
DX: L97.812 Non-pressure chronic ulcer of other part of right lower leg with fat layer exposed (principal); M21.371 Foot drop, right foot; R26.2 Difficulty in walking, not elsewhere classified; Z87.891 Personal history of nicotine dependence
CPT/HCPCS: 11042

== ENCOUNTER 2020-11-23 14:12 | Outpatient (RCR) | payer MEDICARE, MEDICAID, SELFPAY ==
[2020-11-08 00:17] VITALS: BP 142/78; PULSE 72; RESP 18; TEMP 37.6; O2SAT 96
[2020-11-23 14:10] VITALS: BP 141/82; PULSE 75; RESP 16; TEMP 36.6; BMI 25.2
--- NOTE | 2020-11-23 16:29 | PN.PCM_ITS ---
History of Present Illness Date of Service: 11/23/20 Chief Complaint: Chronic, nonhealing wound of the right leg History of Wound: This 70-year-old male follows up for chronic right leg ulcer. He has recent increased pain and denies redness or odor. He change the dressing with Aquacel ag. He denies fever, chill, nausea, vomiting. He has exhausted all arterial vascular surgery procedures and is optimized at this time. He has a history of recurrent infections and bacterial contamination. He denies infection concerns at this time and changes his dressing daily with silver product. He wears an AFO. His pain is controlled today. Progress of Wound: stable Objective Data Objective Data Vital Signs: Vital Signs Temp Pulse Resp BP Pulse Ox 98 F 75 16 141/82 H 96 11/23/20 14:10 11/23/20 14:10 11/23/20 14:10 11/23/20 14:10 11/08/20 00:17 Oxygen Delivery Method Room Air Weight: 91.138 kg Body Mass Index (BMI) 25.2 Physical Exam Const alert and oriented x3 General Appearance: cooperative HEENT normocephalic Extremity Extremity Narrative: No calf tenderness Diminished pulses Muscle wasting noted Residual subtle dropfoot and prior toe amputation unchanged Decreased pain with cold manipulation General Extremity: edema and no tenderness to palpation of joints or extremities; Negative for cyanosis Skin Skin Narrative: no purulence, no streaking, no odor, no infection. Deep tissue including fascial compartments are exposed without bone exposure. Adjacent skin is hairless and atrophic. General Skin Exam: Negative for erythema Neuro Neuro Narrative: lack of normal epicritic sensation via light touch is consistent with neuropathy status Psych cooperative and affect normal Debridement Note Debridement Note Post-Debridement Measurements and Additional Note: Post-Debridement Measurements/Treatment [facility] Nurse 1 - General Ulcer Assessment Start: 11/23/20 14:10 Freq: Status: Active Protocol: .LOWEXT Activity Type Activity Date Activity User E-Sign Co-Sign Detail Recorded Client Recorded Date Recorded By Document 11/23/20 14:10 [facility] [id number] 11/23/20 14:13 [facility] 11/23/20 14:10 - Today's Visit Information Type of service 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 ) Arrival Mode Ambulatory,Cane Transfer Assistance None Patient Identification Verified (Name & Yes ) Patient Requires Transmission-Based No Precautions Height and Weight Body Mass Index (BMI) 25.2 BMI Classification Overweight Vital Signs Temperature (97.8 F-99.1 F) 98 F Temperature Source Temporal Pulse Rate (60-100) 75 Pulse Location Monitor Respiratory Rate (12-18) 16 Respiratory rate source Observation Oxygen Delivery Method Room Air Blood Pressure (90/60-120/80) 141/82 H Blood Pressure Mean (mm Hg) 101 Source Monitor Position Sitting Blood Pressure Location Right Arm History Since Last Visit- (Skip if this is Patient's initial visit) Have you changed medications since your No last visit? Any new allergies or adverse reactions No Had a fall/change in ADL's that may No increase risk of falls Signs or symptoms of abuse and/or No neglect since last visit Have you been in the hospital since your No last visit? Has dressing in place as prescribed Yes Has compression in place as prescribed N/A Has offloadiing in place as prescribed N/A Experienced any changes in pain level or No management Left Footwear Regular Shoe Right Footwear Regular Shoe Pain Scale: 0-10 Numeric Is Patient Pain Free? Yes WC - Nurse 1 - General Ulcer Measurement Start: 11/23/20 14:10 Freq: Status: Active Protocol: Activity Type Activity Date Activity User E-Sign Co-Sign Detail Recorded Client Recorded Date Recorded By Document 11/23/20 14:10 [facility] [id number] 11/23/20 14:13 [facility] 11/23/20 14:10 Wound Center Nurse 1 #4 R Lat Lower Leg -Combined with other wound No -Current Size (cm) - Length 4.7 -Current Size (cm) - Width 0.6 -Current Size (cm) - Depth 1 -Total Square Cm 2.82 -Photo Taken No -Epithelialization None Present -Tunneling No -Undermining/Tunneling No -Circular Undermining No -Exudate Amt Small -Exudate Type Serous -Wound Margin Thickened -Granulation Amt Small (1-33%) -Granulation Quality Red -Slough/Fibrin Yes -Necrosis Amt Large (67-100%) -Necrotic Tissue Type Adherent Slough -Texture (Denisa-wound Skin Appearance) Assessed, Scarring -Moisture (Denisa-wound Skin Appearance) Assessed -Color (Denisa-wound Skin Appearance) Assessed -Temperature (Denisa-wound Skin No Abnormality Appearance) (Pt Warm) -Tenderness on Palpation (Denisa-wound Yes Skin Appearance) -Ulcer Cleansing Rinsed/ Irrigated with Saline -Foul Odor after Cleansing No -Anesthetic Used 5% Lidocaine Gel WC - Nurse 3 - General Ulcer D/C NN Start: 11/23/20 14:10 Freq: Status: Active Protocol: Activity Type Activity Date Activity User E-Sign Co-Sign Detail Recorded Client Recorded Date Recorded By Document 11/23/20 15:09 [place] [id number] 11/23/20 15:10 [place] 11/23/20 15:09 Wound Care Nurse 3 -Primary Dressing Applied Aquacel Extra -Primary Dressing Covered/Secured with Dry Gauze, Secured with Tape -Aquacel Extra 1 WC - Visit Discharge Discharge Condition Stable Ambulatory Status Ambulatory,Cane Transportation Private Auto Medication Reconcilliation completed & No provided to patient/care provider Clinical Summary of Care Provided Yes Wound debrided: lateral right leg Wound Grade/Stage: Type of Debridement: Selective debridement Anesthesia Used: 4% Lidocaine Solution Depth: in the subcutaneous layer Percentage of wound debrided: 100 Instrument Used: #15 blade Tissue Removed: fibrous, devitalized subcutaneous, biofilm, slough Severity: Fat Layer Exposed Amount of bleeding with debridement: Mild Bleeding Controlled with: Pressure Patient tolerated procedure: Patient tolerated procedure well Assessment/Plan Assessment/Plan (1) Ulcer of right lower extremity with muscle involvement without evidence of necrosis: CODE(S): L97.915 - Non-pressure chronic ulcer of unspecified part of right lower leg with muscle involvement without evidence of necrosis (2) Malnutrition: CODE(S): E46 - Unspecified protein-calorie malnutrition (3) Foot drop, right: CODE(S): M21.371 - Foot drop, right foot (4) Difficulty walking: CODE(S): R26.2 - Difficulty in walking, not elsewhere classified (5) Delayed wound healing: CODE(S): T14.8XXD - Other injury of unspecified body region, subsequent encounter PLAN: This is a 70-year-old male with multiple medical problems, as discussed above. He had a prior fasciotomy site which was performed remotely as a result of a compartment syndrome secondary to acute arterial ischemia. The patient developed a chronic foot drop as result. This site did eventually heal and has now reopened with continued delayed healing. Selective debridement was performed as noted in the clinical panel to control recurrent bioburden development. 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 He is undergone at least 2 right lower extremity vascularization procedures in the right lower extremity by Dr. Scot Yarbrough, the most recent of which was performed in November 2019. The case was recently reviewed with Dr. Yarbrough and he is considered optimized at this time with no additional intervention recommendations. He understands he is at risk for limb loss including amputation. He does not want to proceed forward with an amputation at this time and elects to proceed forward with a palliative wound care plan. To continue to change dressing daily with Simple [employer] cell AG and to wash with soap and water. To avoid soaking. I also still recommend a nutrition referral. His pain is controlled today. I recommend he continue to follow-up with pain m anagement and reduction in narcotic medication is also recommended to reduce chance of addiction. To continue gabapentin management and considered sympathetic nerve block with pain management. He was advised to continue with his ankle foot orthotic brace. I answered all of his questions. To return to wound healing center in 3 to 4 weeks. He would like to continue with a palliative type wound care program at this time. Note: [employer] speech recognition book sewer software was used to create portions of this document. Sound-alike and misspelled words, as well as other book sewer errors may be contained in the documentation. The medical decision making level is low. There is noted low risk of morbidity after considering this treatment plan and diagnostic data. The problems addressed require a low medical decision making level which includes two or more minor problems, a stable chronic illness, or an acute uncomplicated illness or injury.
== END 2020-12-07 23:59 ==
LOC: WC 14:12
PROVIDERS: Family Provider Family Medicine; PCP Family Medicine; Referring Provider Podiatrist; Visit Provider Podiatrist
DX: L97.812 Non-pressure chronic ulcer of other part of right lower leg with fat layer exposed (principal); M21.371 Foot drop, right foot; R26.2 Difficulty in walking, not elsewhere classified; Z87.891 Personal history of nicotine dependence
CPT/HCPCS: 97597

== ENCOUNTER → 2020-12-20 15:20 | Outpatient (CLI) | payer MEDICARE, MEDICAID, SELFPAY ==
[2020-11-23 14:10] VITALS: BMI 25.2
[2020-12-20 16:56] LABS: Amphetamine Urine VISTA NEGATIVE (<1000 ng/mL); Barbiturate Urine VISTA NEGATIVE (< 200 ng/mL); Benzodiazepine Urine VISTA NEGATIVE (< 200 ng/mL); Cocaine Urine VISTA NEGATIVE (< 300 ng/mL); Ecstacy Urine VISTA NEGATIVE (< 500 ng/mL); Methadone Urine VISTA NEGATIVE (< 300 ng/mL); PCP Urine VISTA NEGATIVE (< 25 ng/mL); THC Urine VISTA NEGATIVE (< 50 ng/mL); Vista UDS pH Range 6
== END ==
PROVIDERS: PCP Family Medicine; Referring Provider Anesthesiology Pain Medicine; Visit Provider Anesthesiology Pain Medicine
DX: F11.20 Opioid dependence, uncomplicated (principal)
CPT/HCPCS: 80307

== ENCOUNTER 2020-12-21 14:06 | Outpatient (RCR) | payer MEDICARE, MEDICAID, SELFPAY ==
[2020-12-08 00:16] VITALS: BP 141/82; PULSE 75; RESP 16; TEMP 36.6; O2SAT 96
[2020-12-21 14:14] VITALS: BP 151/80; PULSE 69; RESP 18; TEMP 36.5; BMI 25.2
--- NOTE | 2020-12-21 15:30 | PN.PCM_ITS ---
History of Present Illness Date of Service: 12/21/20 Chief Complaint: Chronic, nonhealing wound of the right leg History of Wound: This 70-year-old male follows up for chronic right leg ulcer. He has recent increased pain and denies redness or odor. He change the dressing with Aquacel ag. He denies fever, chill, nausea, vomiting. He has exhausted all arterial vascular surgery procedures and is optimized at this time. He has a history of recurrent infections and bacterial contamination but not recently. He denies infection concerns at this time and changes his dressing daily with silver product. He wears an AFO. His pain is controlled today. Progress of Wound: stable Objective Data Objective Data Vital Signs: Vital Signs Temp Pulse Resp BP Pulse Ox 97.7 F L 69 18 151/80 H 96 12/21/20 14:14 12/21/20 14:14 12/21/20 14:14 12/21/20 14:14 12/08/20 00:16 Oxygen Delivery Method Room Air Weight: 91.138 kg Body Mass Index (BMI) 25.2 Physical Exam Const alert and oriented x3 General Appearance: cooperative HEENT normocephalic Extremity Extremity Narrative: No calf tenderness Diminished pulses Muscle wasting noted Residual subtle dropfoot and prior toe amputation unchanged Decreased pain with cold manipulation General Extremity: edema and no tenderness to palpation of joints or extremities; Negative for cyanosis Skin Skin Narrative: no purulence, no streaking, no odor, no infection. Deep tissue including fascial compartments are exposed without bone exposure. Adjacent skin is hairless and atrophic. General Skin Exam: Negative for erythema Neuro Neuro Narrative: lack of normal epicritic sensation via light touch is consistent with neuropathy status Psych cooperative and affect normal Debridement Note Debridement Note Post-Debridement Measurements and Additional Note: Post-Debridement Measurements/Treatment - Nurse 1 - General Ulcer Assessment Start: 12/21/20 14:12 Freq: Status: Active Protocol: OPAL Activity Type Activity Date Activity User E-Sign Co-Sign Detail Recorded Client Recorded Date Recorded By Document 12/21/20 14:14 AL [id number] 12/21/20 14:20 AL 12/21/20 14:14 - Today's Visit Information Arrival Mode Walker Accompanied by self Patient Identification Verified (Name & Yes ) Height and Weight Body Mass Index (BMI) 25.2 BMI Classification Overweight Vital Signs Temperature (97.8 F-99.1 F) 97.7 F L Temperature Source Temporal Pulse Rate (60-100) 69 Pulse Location Monitor Respiratory Rate (12-18) 18 Respiratory rate source Observation Oxygen Delivery Method Room Air Blood Pressure (90/60-120/80) 151/80 H Blood Pressure Mean (mm Hg) 103 Source Monitor Position Sitting Blood Pressure Location Right Arm History Since Last Visit- (Skip if this is Patient's initial visit) Has dressing in place as prescribed Yes Has compression in place as prescribed Yes Has offloadiing in place as prescribed Yes Experienced any changes in pain level or No management WC - Nurse 1 - General Ulcer Measurement Start: 12/21/20 14:12 Freq: Status: Active Protocol: Activity Type Activity Date Activity User E-Sign Co-Sign Detail Recorded Client Recorded Date Recorded By Document 12/21/20 14:14 AL [id number] 12/21/20 14:20 AL 12/21/20 14:14 Wound Center Nurse 1 #4 R Lat Lower Leg -Current Size (cm) - Length 4.5 -Current Size (cm) - Width 0.5 -Current Size (cm) - Depth 0.8 -Total Square Cm 2.25 -Granulation Amt Large (67-100%) -Granulation Quality Pale,[employer] -Necrosis Amt Small (1-33%) -Necrotic Tissue Type Adherent Slough -Texture (Denisa-wound Skin Appearance) Assessed -Moisture (Denisa-wound Skin Appearance) Assessed -Color (Denisa-wound Skin Appearance) Assessed -Temperature (Denisa-wound Skin No Abnormality Appearance) (Pt Warm) -Tenderness on Palpation (Denisa-wound No Skin Appearance) -Ulcer Cleansing Rinsed/ Irrigated with Saline -Foul Odor after Cleansing No -Anesthetic Used 4% Lidocaine Solution Right Calf (cm) 32 Right Ankle (cm) 19.6 WC - Nurse 3 - General Ulcer D/C NN Start: 12/21/20 14:12 Freq: Status: Active Protocol: Activity Type Activity Date Activity User E-Sign Co-Sign Detail Recorded Client Recorded Date Recorded By Document 12/21/20 15:06 RB [id number] 12/21/20 15:07 RB 12/21/20 15:06 Wound Care Nurse 3 #4 R Lat Lower Leg -Ulcer Cleansing Rinsed/ Irrigated with Saline -Primary Dressing Applied Aquacel AG 4x4 -Primary Dressing Covered/Secured with Dry Gauze, Secured with Tape -Aquacel AG 4x4 1 Pain Scale: 0-10 Numeric Is Patient Pain Free? Yes WC - Visit Discharge Discharge Condition Stable Ambulatory Status Ambulatory,Cane Transportation Private Auto Medication Reconcilliation completed & No provided to patient/care provider Clinical Summary of Care Provided Yes Wound debrided: right leg Wound Grade/Stage: Type of Debridement: Excisional debridement Anesthesia Used: 4% Lidocaine Solution Depth: in the subcutaneous layer Percentage of wound debrided: 100 Instrument Used: 3mm curette and #15 blade Tissue Removed: fibrous, devitalized subcutaneous, biofilm, slough Severity: Fat Layer Exposed Amount of bleeding with debridement: Mild Bleeding Controlled with: Pressure Patient tolerated procedure: Patient tolerated procedure well Assessment/Plan Assessment/Plan (1) Ulcer of right lower extremity with muscle involvement without evidence of necrosis: CODE(S): L97.915 - Non-pressure chronic ulcer of unspecified part of right lower leg with muscle involvement without evidence of necrosis (2) Malnutrition: CODE(S): E46 - Unspecified protein-calorie malnutrition (3) Foot drop, right: CODE(S): M21.371 - Foot drop, right foot (4) Difficulty walking: CODE(S): R26.2 - Difficulty in walking, not elsewhere classified (5) Delayed wound healing: CODE(S): T14.8XXD - Other injury of unspecified body region, subsequent encounter PLAN: This is a 70-year-old male with multiple medical problems, as discussed above. He had a prior fasciotomy site which was performed remotely as a result of a compartment syndrome secondary to acute arterial ischemia. The patient developed a chronic foot drop as result. This site did eventually heal and has now reopened with continued delayed healing. Subcutaneous excisional debridement was performed as noted in the clinical panel to control recurrent bioburden development. To wash with soap and water. To change dressing daily with aquacell ag (4x4) with additional secondary dressing including gauze. 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 He has undergone at least 2 right lower extremity vascularization procedures in the right lower extremity by Dr. Scot Yarbrough, the most recent of which was performed in November 2019. The case was recently reviewed with Dr. Yarbrough and he is considered optimized at this time with no additional intervention recommendations. He understands he is at risk for limb loss including amputation. He does not want to proceed forward with an amputation at this time and elects to proceed forward with a palliative wound care plan. To continue to change dressing daily with [employer] cell AG and to wash with soap and water. To avoid soaking. I also still recommend a nutrition referral. His pain is controlled today. I recommend he continue to follow-up with pain management and reduction in narcotic medication is also recommended to reduce chance of addiction. To continue gabapentin management and considered sympathetic nerve block with pain management. He was advised to continue with his ankle foot orthotic brace. I answered all of his questions. To return to wound healing center in 3 to 4 weeks. He would like to continue with a palliative type wound care program at this time. Note: [employer] speech recognition vice president of instruction software was used to create portions of this document. Sound-alike and misspelled words, as well as other vice president of instruction errors may be contained in the documentation.
== END 2021-01-07 23:59 ==
LOC: WC 14:06
PROVIDERS: Family Provider Family Medicine; PCP Family Medicine; Referring Provider Podiatrist; Visit Provider Podiatrist
DX: L97.912 Non-pressure chronic ulcer of unspecified part of right lower leg with fat layer exposed (principal); M21.371 Foot drop, right foot; R26.2 Difficulty in walking, not elsewhere classified; Z89.421 Acquired absence of other right toe(s); Z87.891 Personal history of nicotine dependence
CPT/HCPCS: 11042

== ENCOUNTER 2021-01-18 15:55 | Outpatient (RCR) | payer MEDICARE, MEDICAID, SELFPAY ==
[2021-01-08 00:21] VITALS: BP 151/80; PULSE 69; RESP 18; TEMP 36.5; O2SAT 96
[2021-01-18 14:18] VITALS: BP 154/85; PULSE 67; RESP 18; TEMP 36.4; BMI 25.2
--- NOTE | 2021-01-18 15:52 | PN.PCM_ITS ---
History of Present Illness Date of Service: 01/18/21 Chief Complaint: Chronic, nonhealing wound of the right leg History of Wound: This 70-year-old male follows up for chronic right leg ulcer. He has recent increased pain and denies redness or odor. He change the dressing with Aquacel ag. He denies fever, chill, nausea, vomiting. He has exhausted all arterial vascular surgery procedures and is optimized at this time. He has a history of recurrent infections and bacterial contamination but not recently. He denies infection concerns at this time and changes his dressing daily with silver product. He wears an AFO. His pain is controlled today. He denies status change. Progress of Wound: stable Objective Data Objective Data Vital Signs: Vital Signs Temp Pulse Resp BP Pulse Ox 97.5 F L 67 18 154/85 H 96 01/18/21 14:18 01/18/21 14:18 01/18/21 14:18 01/18/21 14:18 01/08/21 00:21 Weight: 91.138 kg Body Mass Index (BMI) 25.2 Physical Exam Const alert and oriented x3 General Appearance: cooperative HEENT normocephalic Extremity Extremity Narrative: No calf tenderness Diminished pulses Muscle wasting noted Residual subtle dropfoot and prior toe amputation unchanged Decreased pain with cold manipulation General Extremity: edema and no tenderness to palpation of joints or extremities; Negative for cyanosis Skin Skin Narrative: no purulence, no streaking, no odor, no infection. Deep tissue including fascial compartments are exposed without bone exposure. Adjacent skin is hairless and atrophic. General Skin Exam: Negative for erythema Neuro Neuro Narrative: lack of normal epicritic sensation via light touch is consistent with neuropathy status Psych cooperative and affect normal Debridement Note Debridement Note Post-Debridement Measurements and Additional Note: Post-Debridement Measurements/Treatment WC - Nurse 1 - General Ulcer Assessment Start: 01/18/21 14:18 Freq: Status: Active Protocol: [email or web address] Activity Type Activity Date Activity User E-Sign Co-Sign Detail Recorded Client Recorded Date Recorded By Document 01/18/21 14:18 [email or web address] [id number] 01/18/21 14:24 DL 01/18/21 14:18 - Today's Visit Information Type of service Follow-up 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/CARDIAC CARE NURSE ) Arrival Mode Ambulatory,Cane Transfer Assistance None Patient Identification Verified (Name & Yes ) Patient Requires Transmission-Based No Precautions Height and Weight Body Mass Index (BMI) 25.2 BMI Classification Overweight Vital Signs Temperature (97.8 F-99.1 F) 97.5 F L Temperature Source Temporal Pulse Rate (60-100) 67 Pulse Location Monitor Respiratory Rate (12-18) 18 Respiratory rate source Observation Blood Pressure (90/60-120/80) 154/85 H Blood Pressure Mean (mm Hg) 108 Source Monitor History Since Last Visit- (Skip if this is Patient's initial visit) Have you changed medications since your No last visit? Any new allergies or adverse reactions No Had a fall/change in ADL's that may No increase risk of falls Have you been in the hospital since your No last visit? Has dressing in place as prescribed Yes Has compression in place as prescribed Yes Has offloadiing in place as prescribed Yes Experienced any changes in pain level or No management Pain Scale: 0-10 Numeric Is Patient Pain Free? Yes WC - Nurse 1 - General Ulcer Measurement Start: 01/18/21 14:18 Freq: Status: Active Protocol: Activity Type Activity Date Activity User E-Sign Co-Sign Detail Recorded Client Recorded Date Recorded By Document 01/18/21 14:18 DL [id number] 01/18/21 14:24 DL 01/18/21 14:18 Wound Center Nurse 1 #4 R Lat Lower Leg -Current Size (cm) - Length 4.5 -Current Size (cm) - Width 0.6 -Current Size (cm) - Depth 0.5 -Total Square Cm 2.70 -Photo Taken No -Exudate Amt Small -Exudate Type Serosanguineous -Wound Margin Thickened & Rolled Under -Granulation Amt Small (1-33%) -Granulation Quality [place] -Necrosis Amt Large (67-100%) -Necrotic Tissue Type Adherent Slough -Structure Exposed N/A -Texture (Denisa-wound Skin Appearance) Scarring -Moisture (Denisa-wound Skin Appearance) No Abnormality -Color (Denisa-wound Skin Appearance) No Abnormality -Temperature (Denisa-wound Skin No Abnormality Appearance) (Pt Warm) -Tenderness on Palpation (Denisa-wound No Skin Appearance) -Ulcer Cleansing Rinsed/ Irrigated with Saline -Foul Odor after Cleansing No -Anesthetic Used 4% Lidocaine Solution Right Calf (cm) 30.5 Right Ankle (cm) 19.2 WC - Nurse 2 - General Ulcer CM Notes Start: 01/18/21 14:18 Freq: Status: Active Protocol: Activity Type Activity Date Activity User E-Sign Co-Sign Detail Recorded Client Recorded Date Recorded By Document 01/18/21 14:55 [id number] 01/18/21 14:56 01/18/21 14:55 Wound Center Nurse 2 #4 R Lat Lower Leg -Time 14:55 -Correct Patient Yes -Correct Side, Site, Position Yes -Correct Procedure Yes -Procedure Performed Yes -Type of Procedure Debridement -Clinical Debridement Subcutaneous -Tissue Removed Subcutaneous -Post Debridement (cm) - Length 4.6 -Post Debridement (cm) - Width 0.6 -Post Debridement (cm) - Depth 0.6 -Total Square (Post) (cm) 2.76 -Area of Debridement (cm) - Length 4.6 -Area of Debridement (cm) - Width 0.6 -Total Square (Area) (cm) 2.76 -Tunneling No -Undermining/Tunneling No -Circular Undermining No -Wound/Ulcer Outcome Not Healed -Ulcer Cleansing Rinsed/ Irrigated with Saline -Foul Odor after Cleansing No -Bioengineered Tissue No -Bleeding Controlled with Pressure -Offloading No -Treatment Response Procedure Tolerated Well -Debridement - Subq, 1st 20sq cm Yes Pain Scale: 0-10 Numeric Is Patient Pain Free? Yes - Nurse 3 - General Ulcer D/C NN Start: 01/18/21 14:18 Freq: Status: Active Protocol: Activity Type Activity Date Activity User E-Sign Co-Sign Detail Recorded Client Recorded Date Recorded By Document 01/18/21 15:10 DL [id number] 01/18/21 15:10 DL 01/18/21 15:10 Wound Care Nurse 3 #4 R Lat Lower Leg -Ulcer Cleansing Rinsed/ Irrigated with Saline -Foul Odor after Cleansing No -Primary Dressing Applied Aquacel AG 2x2 -Primary Dressing Covered/Secured with Dry Gauze, Secured with Tape -Aquacel AG 2x2 1 Treatment Response Procedure Tolerated Well Pain Scale: 0-10 Numeric Is Patient Pain Free? Yes - Visit Discharge Discharge Condition Stable Ambulatory Status Ambulatory,Cane Transportation Private Auto Wound debrided: right lateral leg Wound Grade/Stage: Type of Debridement: Excisional debridement Anesthesia Used: 4% Lidocaine Solution Depth: in the subcutaneous layer Percentage of wound debrided: 100 Instrument Used: #15 blade Tissue Removed: fibrous, devitalized subcutaneous, biofilm, slough Severity: Fat Layer Exposed Amount of bleeding with debridement: Mild Bleeding Controlled with: Pressure Patient tolerated procedure: Patient tolerated procedure well Assessment/Plan Assessment/Plan (1) Ulcer of right lower extremity with muscle involvement without evidence of necrosis: CODE(S): L97.915 - Non-pressure chronic ulcer of unspecified part of right lower leg with muscle involvement without evidence of necrosis (2) Malnutrition: CODE(S): E46 - Unspecified protein-calorie malnutrition (3) Foot drop, right: CODE(S): M21.371 - Foot drop, right foot (4) Difficulty walking: CODE(S): R26.2 - Difficulty in walking, not elsewhere classified (5) Delayed wound healing: CODE(S): T14.8XXD - Other injury of unspecified body region, subsequent encounter PLAN: This is a 70-year-old male with multiple medical problems, as discussed above. He had a prior fasciotomy site which was performed remotely as a result of a compartment syndrome secondary to acute arterial ischemia. The patient developed a chronic foot drop as result. This site did eventually heal and has now reopened with continued delayed healing. Subcutaneous excisional debridement was performed as noted in the clinical panel to control recurrent bioburden development. To wash with soap and water. To change dressing daily with aquacell ag (4x4) with additional secondary dressing including gauze. 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 He has undergone at least 2 right lower extremity vascularization procedures in the right lower extremity by Dr. Scot Yarbrough, the most recent of which was performed in November 2019. The case was recently reviewed with Dr. Yarbrough and he is considered optimized at this time with no additional intervention recommendations. He understands he is at risk for limb loss including amputation. He does not want to proceed forward with an amputation at this time and elects to proceed forward with a palliative wound care plan. To continue to change dressing daily with aqua cell AG and to wash with soap and water. To avoid soaking. I also still recommend a nutrition referral. His pain is controlled today. I recommend he continue to follow-up with pain management and reduction in narcotic medication is also recommended to reduce chance of addiction. To continue gabapentin management and considered sympathetic nerve block with pain management. He was advised to continue with his ankle foot orthotic brace. I answered all of his questions. To return to wound healing center in 3 to 4 weeks. He would like to continue with a palliative type wound care program at this time. Note: [employer] speech recognition senior private client advisor software was used to create portions of this document. Sound-alike and misspelled words, as well as other senior private client advisor errors may be contained in the documentation.
== END 2021-02-07 23:59 ==
LOC: WC 15:55
PROVIDERS: Family Provider Family Medicine; PCP Family Medicine; Referring Provider Podiatrist; Visit Provider Podiatrist
DX: L97.812 Non-pressure chronic ulcer of other part of right lower leg with fat layer exposed (principal); R26.2 Difficulty in walking, not elsewhere classified; M21.371 Foot drop, right foot; Z87.891 Personal history of nicotine dependence
CPT/HCPCS: 11042

== ENCOUNTER 2021-02-15 14:15 | Outpatient (RCR) | payer MEDICARE, MEDICAID, SELFPAY ==
[2021-02-08 00:26] VITALS: BP 154/85; PULSE 67; RESP 18; TEMP 36.4; O2SAT 96; BMI 25.2
[2021-02-15 14:05] VITALS: BP 126/91; PULSE 74; RESP 16; TEMP 36.6; BMI 25.2
--- NOTE | 2021-02-15 14:59 | PCM.WC.PN ---
History of Present Illness Date of Service: 02/15/21 Chief Complaint: Chronic, non-healing wound of the right leg History of Wound: This 70-year-old male follows up for chronic right leg ulcer. He has recent increased pain and denies redness or odor. He change the dressing with Aquacel Ag. He denies fever, chill, nausea, vomiting. He has exhausted all arterial vascular surgery procedures and is optimized at this time. He has a history of recurrent infections and bacterial contamination but not recently. He denies infection concerns at this time and changes his dressing daily with silver product. He denies new lower extremity complaints today. Progress of Wound: Stable Objective Data Objective Data Vital Signs: Vital Signs Temp Pulse Resp BP Pulse Ox 97.9 F 74 16 126/91 H 96 02/15/21 14:05 02/15/21 14:05 02/15/21 14:05 02/15/21 14:05 02/08/21 00:26 Oxygen Delivery Method Room Air Weight: 91.138 kg Body Mass Index (BMI) 25.2 Physical Exam Const alert and oriented x3 General Appearance: cooperative HEENT normocephalic Extremity Extremity Narrative: No calf tenderness Diminished pulses Muscle wasting noted Residual subtle dropfoot and prior toe amputation unchanged Decreased pain with cold manipulation General Extremity: edema and no tenderness to palpation of joints or extremities; Negative for cyanosis Skin Skin Narrative: no purulence, no streaking, no odor, no infection. Deep tissue including fascial compartments are exposed without bone exposure. Adjacent skin is hairless and atrophic. General Skin Exam: Negative for erythema Neuro Neuro Narrative: lack of normal epicritic sensation via light touch is consistent with neuropathy status Psych cooperative and affect normal Debridement Note Debridement Note Wound debrided: right leg Wound Grade/Stage: Type of Debridement: Excisional debridement Anesthesia Used: 4% Lidocaine Solution Depth: in the subcutaneous layer Percentage of wound debrided: 100 Instrument Used: #15 blade Tissue Removed: fibrous, devitalized subcutaneous, biofilm, slough Severity: Fat Layer Exposed Amount of bleeding with debridement: Mild Bleeding Controlled with: Pressure Patient tolerated procedure: Patient tolerated procedure well Post-Debridement Measurements and Additional Note: Post-Debridement Measurements/Treatment JENNIFER - Nurse 1 - General Ulcer Assessment Start: 02/15/21 14:05 Freq: Status: Active Protocol: OPAL Activity Type Activity Date Activity User E-Sign Co-Sign Detail Recorded Client Recorded Date Recorded By Document 02/15/21 14:05 [facility] Desktop 02/15/21 14:08 [facility] 02/15/21 14:05 WC - Today's Visit Information Type of service Follow-up 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/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 ) Arrival Mode Ambulatory Transfer Assistance None Patient Identification Verified (Name & Yes ) Patient Requires Transmission-Based No Precautions Height and Weight Body Mass Index (BMI) 25.2 BMI Classification Overweight Vital Signs Temperature (97.8 F-99.1 F) 97.9 F Temperature Source Temporal Pulse Rate (60-100) 74 Pulse Location Monitor Respiratory Rate (12-18) 16 Respiratory rate source Observation Oxygen Delivery Method Room Air Blood Pressure (90/60-120/80) 126/91 H Blood Pressure Mean (mm Hg) 102 Source Monitor Position Sitting Blood Pressure Location Left Arm History Since Last Visit- (Skip if this is Patient's initial visit) Have you changed medications since your No last visit? Any new allergies or adverse reactions No Had a fall/change in ADL's that may No increase risk of falls Signs or symptoms of abuse and/or No neglect since last visit Have you been in the hospital since your No last visit? Has dressing in place as prescribed Yes Has compression in place as prescribed Yes Has offloadiing in place as prescribed Yes Experienced any changes in pain level or No management Left Footwear Regular Shoe Right Footwear Regular Shoe Pain Scale: 0-10 Numeric Is Patient Pain Free? Yes - Nurse 1 - General Ulcer Measurement Start: 02/15/21 14:05 Freq: Status: Active Protocol: Activity Type Activity Date Activity User E-Sign Co-Sign Detail Recorded Client Recorded Date Recorded By Document 02/15/21 14:05 [facility] [employer] 02/15/21 14:08 [facility] 02/15/21 14:05 Wound Center Nurse 1 #4 R Lat Lower Leg -Combined with other wound No -Current Size (cm) - Length 4.8 -Current Size (cm) - Width 0.9 -Current Size (cm) - Depth 0.6 -Total Square Cm 4.32 -Photo Taken No -Epithelialization None Present -Tunneling No -Undermining/Tunneling No -Circular Undermining No -Exudate Amt Medium -Exudate Type Serous -Wound Margin Thickened & Rolled Under -Granulation Amt Medium (34-66%) -Granulation Quality [place] -Slough/Fibrin Yes -Necrosis Amt Medium (34-66%) -Necrotic Tissue Type Adherent Slough -Texture (Denisa-wound Skin Appearance) Assessed, Scarring -Moisture (Denisa-wound Skin Appearance) Assessed -Color (Denisa-wound Skin Appearance) Assessed -Temperature (Denisa-wound Skin No Abnormality Appearance) (Pt Warm) -Tenderness on Palpation (Denisa-wound No Skin Appearance) -Ulcer Cleansing Rinsed/ Irrigated with Saline -Foul Odor after Cleansing No -Anesthetic Used 5% Lidocaine Gel Lower Limb Edema Present Yes Right Calf (cm) 33.1 Right Ankle (cm) 21.4 WC - Nurse 2 - General Ulcer CM Notes Start: 02/15/21 14:05 Freq: Status: Active Protocol: Activity Type Activity Date Activity User E-Sign Co-Sign Detail Recorded Client Recorded Date Recorded By Document 02/15/21 14:30 [facility] [id number] 02/15/21 14:35 [facility] 02/15/21 14:30 Wound Center Nurse 2 #4 R Lat Lower Leg -Time 14:30 -Correct Patient Yes -Correct Side, Site, Position Yes -Correct Procedure Yes -Procedure Performed Yes -Type of Procedure Debridement -Clinical Debridement Subcutaneous -Tissue Removed Subcutaneous -Post Debridement (cm) - Length 4.8 -Post Debridement (cm) - Width 1 -Post Debridement (cm) - Depth 0.6 -Total Square (Post) (cm) 4.8 -Area of Debridement (cm) - Length 4.8 -Area of Debridement (cm) - Width 1 -Total Square (Area) (cm) 4.8 -Tunneling No -Undermining/Tunneling No -Circular Undermining No -Wound/Ulcer Outcome Not Healed -Ulcer Cleansing Rinsed/ Irrigated with Saline -Foul Odor after Cleansing No -Bioengineered Tissue No -Bleeding Controlled with Pressure -Offloading No -Treatment Response Procedure Tolerated Well -Debridement - Subq, 1st 20sq cm Yes Pain Scale: 0-10 Numeric Is Patient Pain Free? Yes - Nurse 3 - General Ulcer D/C NN Start: 02/15/21 14:05 Freq: Status: Active Protocol: Activity Type Activity Date Activity User E-Sign Co-Sign Detail Recorded Client Recorded Date Recorded By Document 02/15/21 14:39 RB [id number] 02/15/21 14:40 RB 02/15/21 14:39 Wound Care Nurse 3 #4 R Lat Lower Leg -Ulcer Cleansing Rinsed/ Irrigated with Saline -Primary Dressing Applied Aquacel AG 4x4 -Primary Dressing Covered/Secured with Dry Gauze, Secured with Tape -Aquacel AG 4x4 1 Right -Tubular Bandage Single Layer -Size of Tubigrip Used Size D -Size D ($) 1 Treatment Response Procedure Tolerated Well Pain Scale: 0-10 Numeric Is Patient Pain Free? Yes WC - Visit Discharge Discharge Condition Stable Ambulatory Status Ambulatory Transportation Private Auto Medication Reconcilliation completed & No provided to patient/care provider Clinical Summary of Care Provided Yes Assessment/Plan Assessment/Plan (1) Ulcer of right lower extremity with muscle involvement without evidence of necrosis: CODE(S): L97.915 - Non-pressure chronic ulcer of unspecified part of right lower leg with muscle involvement without evidence of necrosis (2) Malnutrition: CODE(S): E46 - Unspecified protein-calorie malnutrition (3) Foot drop, right: CODE(S): M21.371 - Foot drop, right foot (4) Difficulty walking: CODE(S): R26.2 - Difficulty in walking, not elsewhere classified (5) Delayed wound healing: CODE(S): T14.8XXD - Other injury of unspecified body region, subsequent encounter PLAN: This is a 70-year-old male with multiple medical problems, as discussed above. He had a prior fasciotomy site which was performed remotely as a result of a compartment syndrome secondary to acute arterial ischemia. The patient developed a chronic foot drop as result. This site did eventually heal and has now reopened with continued delayed healing. Subcutaneous excisional debridement was performed as noted in the clinical panel to control recurrent bioburden development. To wash with soap and water. To change dressing daily with aquacell ag (4x4) with additional secondary dressing including gauze. To moistened with saline if this is starting to get to dry. 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 He has undergone at least 2 right lower extremity vascularization procedures in the right lower extremity by Dr. Scot Yarbrough, the most recent of which was performed in November 2019. The case was recently reviewed with Dr. Yarbrough and he is considered optimized at this time with no additional intervention recommendations. He understands he is at risk for limb loss including amputation. He does not want to proceed forward with an amputation at this time and elects to proceed forward with a palliative wound care plan. To continue to change dressing daily with aqua cell AG and to wash with soap and water. To avoid soaking. I also still recommend a nutrition referral. His pain is controlled today. I recommend he continue to follow-up with pain management and reduction in narcotic medication is also recommended to reduce chance of addiction. To continue gabapentin management and considered sympathetic nerve block with pain management. He was advised to continue with his ankle foot orthotic brace. I answered all of his questions. To return to wound healing center in 3 to 4 weeks. He would like to continue with a palliative type wound care program at this time. Note: [employer] speech recognition power grader operator software was used to create portions of this document. Sound-alike and misspelled words, as well as other power grader operator errors may be contained in the documentation.
== END 2021-03-09 23:59 ==
LOC: WC 14:15
PROVIDERS: Family Provider Family Medicine; PCP Family Medicine; Referring Provider Podiatrist; Visit Provider Podiatrist
DX: L97.812 Non-pressure chronic ulcer of other part of right lower leg with fat layer exposed (principal); M21.371 Foot drop, right foot; R26.2 Difficulty in walking, not elsewhere classified
CPT/HCPCS: 11042

== ENCOUNTER 2021-03-15 14:17 | Outpatient (RCR) | payer MEDICARE, MEDICAID, SELFPAY ==
[2021-03-10 00:20] VITALS: BP 126/91; PULSE 74; RESP 16; TEMP 36.6; O2SAT 96; BMI 25.2
[2021-03-15 14:19] VITALS: BP 148/79; PULSE 71; RESP 17; TEMP 36.7; BMI 25.2
--- NOTE | 2021-03-15 15:22 | PCM.WC.PN ---
History of Present Illness Date of Service: 03/15/21 Chief Complaint: Chronic, non-healing wound of the right leg History of Wound: This 71 year-old male follows up for chronic right leg ulcer. He has recent increased pain and denies redness or odor. He change the dressing with Aquacel Ag. He denies fever, chill, nausea, vomiting. He has exhausted all arterial vascular surgery procedures and is optimized at this time. He has a history of recurrent infections and bacterial contamination but not recently. He denies infection concerns at this time and changes his dressing daily with silver product. He denies new lower extremity complaints today. He is amendable to have misonix debridement today. Progress of Wound: stable Objective Data Objective Data Vital Signs: Vital Signs Temp Pulse Resp BP Pulse Ox 98.0 F 71 17 148/79 H 96 03/15/21 14:19 03/15/21 14:19 03/15/21 14:19 03/15/21 14:19 03/10/21 00:20 Weight: 91.138 kg Body Mass Index (BMI) 25.2 Physical Exam Const alert and oriented x3 General Appearance: cooperative HEENT normocephalic Extremity Extremity Narrative: No calf tenderness Diminished pulses Muscle wasting noted Residual subtle dropfoot and prior toe amputation unchanged Decreased pain with cold manipulation General Extremity: edema and no tenderness to palpation of joints or extremities; Negative for cyanosis Skin Skin Narrative: no purulence, no streaking, no odor, no infection. Deep tissue including fascial compartments are exposed without bone exposure. Adjacent skin is hairless and atrophic. General Skin Exam: Negative for erythema Neuro Neuro Narrative: lack of normal epicritic sensation via light touch is consistent with neuropathy status Psych cooperative and affect normal Debridement Note Debridement Note Wound debrided: right leg Wound Grade/Stage: Type of Debridement: Excisional debridement Anesthesia Used: 4% Lidocaine Solution Depth: in the subcutaneous layer Percentage of wound debrided: 100 Instrument Used: #15 blade and - (misonix ultrasound debridement intstrument) Tissue Removed: fibrous, devitalized subcutaneous, biofilm, slough Severity: Fat Layer Exposed Amount of bleeding with debridement: Mild Bleeding Controlled with: Pressure Patient tolerated procedure: Patient tolerated procedure well Post-Debridement Measurements and Additional Note: Post-Debridement Measurements/Treatment WC - Nurse 1 - General Ulcer Assessment Start: 03/15/21 14:19 Freq: Status: Active Protocol: [email or web address] Activity Type Activity Date Activity User E-Sign Co-Sign Detail Recorded Client Recorded Date Recorded By Document 03/15/21 14:19 ML Desktop 03/15/21 14:28 ML 03/15/21 14:19 WC - Today's Visit Information Type of service Follow-up 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/PRINCIPAL SECURITY ARCHITECT ) Arrival Mode Ambulatory Transfer Assistance None Patient Identification Verified (Name & Yes ) Patient Requires Transmission-Based No Precautions Safety Precautions NA Height and Weight Body Mass Index (BMI) 25.2 BMI Classification Overweight Vital Signs Temperature (97.8 F-99.1 F) 98.0 F Temperature Source Temporal Pulse Rate (60-100) 71 Pulse Location Monitor Respiratory Rate (12-18) 17 Respiratory rate source Observation Blood Pressure (90/60-120/80) 148/79 H Blood Pressure Mean (mm Hg) 102 Source Monitor Position Sitting Blood Pressure Location Left Arm History Since Last Visit- (Skip if this is Patient's initial visit) Have you changed medications since your No last visit? Any new allergies or adverse reactions No Had a fall/change in ADL's that may No increase risk of falls Signs or symptoms of abuse and/or No neglect since last visit Have you been in the hospital since your No last visit? Has dressing in place as prescribed Yes Has compression in place as prescribed N/A Has offloadiing in place as prescribed N/A Experienced any changes in pain level or No management Left Footwear Regular Shoe Right Footwear Regular Shoe Pain Scale: 0-10 Numeric Is Patient Pain Free? Yes - Nurse 1 - General Ulcer Measurement Start: 03/15/21 14:19 Freq: Status: Active Protocol: Activity Type Activity Date Activity User E-Sign Co-Sign Detail Recorded Client Recorded Date Recorded By Document 03/15/21 14:19 ML Desktop 03/15/21 14:28 ML 03/15/21 14:19 Wound Center Nurse 1 #4 R Lat Lower Leg -Current Size (cm) - Length 4 -Current Size (cm) - Width 0.5 -Current Size (cm) - Depth 0.3 -Total Square Cm 2.0 -Exudate Amt Medium -Exudate Type Serosanguineous -Wound Margin Distinct, Outline Attached -Granulation Amt Medium (34-66%) -Granulation Quality [place] -Necrosis Amt Medium (34-66%) -Texture (Denisa-wound Skin Appearance) Assessed -Moisture (Denisa-wound Skin Appearance) Assessed -Color (Denisa-wound Skin Appearance) Assessed -Temperature (Denisa-wound Skin No Abnormality Appearance) (Pt Warm) -Tenderness on Palpation (Denisa-wound No Skin Appearance) -Ulcer Cleansing Rinsed/ Irrigated with Saline -Foul Odor after Cleansing No -Anesthetic Used 5% Lidocaine Gel - Nurse 2 - General Ulcer CM Notes Start: 03/15/21 14:19 Freq: Status: Active Protocol: Activity Type Activity Date Activity User E-Sign Co-Sign Detail Recorded Client Recorded Date Recorded By Document 03/15/21 15:00 [id number] 03/15/21 15:02 03/15/21 15:00 Wound Center Nurse 2 -Time 15:00 -Correct Patient Yes -Correct Side, Site, Position Yes -Correct Procedure Yes -Procedure Performed Yes -Type of Procedure Debridement -Clinical Debridement Subcutaneous -Tissue Removed Subcutaneous -Post Debridement (cm) - Length 4.5 -Post Debridement (cm) - Width 0.5 -Post Debridement (cm) - Depth 0.6 -Total Square (Post) (cm) 2.25 -Area of Debridement (cm) - Length 4.5 -Area of Debridement (cm) - Width 0.5 -Total Square (Area) (cm) 2.25 -Tunneling No -Undermining/Tunneling No -Circular Undermining No -Wound/Ulcer Outcome Not Healed -Ulcer Cleansing Rinsed/ Irrigated with Saline -Foul Odor after Cleansing No -Bioengineered Tissue No -Bleeding Controlled with Pressure -Type of Offloading Total Contact Cast (TCC) - Left ($) -Treatment Response Procedure Tolerated Well -Debridement - Subq, 1st 20sq cm Yes Pain Scale: 0-10 Numeric Is Patient Pain Free? Yes - Nurse 3 - General Ulcer D/C NN Start: 03/15/21 14:19 Freq: Status: Active Protocol: Activity Type Activity Date Activity User E-Sign Co-Sign Detail Recorded Client Recorded Date Recorded By Document 03/15/21 15:04 RB Desktop 03/15/21 15:05 RB 03/15/21 15:04 Wound Care Nurse 3 #4 R Lat Lower Leg -Ulcer Cleansing Rinsed/ Irrigated with Saline -Primary Dressing Applied Aquacel AG 4x4 -Primary Dressing Covered/Secured with Dry Gauze, Secured with Tape -Aquacel AG 4x4 1 Left -Tubular Bandage Single Layer -Size of Tubigrip Used Size D -Size D ($) 1 Treatment Response Procedure Tolerated Well Pain Scale: 0-10 Numeric Is Patient Pain Free? Yes WC - Visit Discharge Discharge Condition Stable Ambulatory Status Ambulatory Transportation Private Auto Medication Reconcilliation completed & No provided to patient/care provider Clinical Summary of Care Provided Yes Assessment/Plan Assessment/Plan (1) Ulcer of right lower extremity with muscle involvement without evidence of necrosis: CODE(S): L97.915 - Non-pressure chronic ulcer of unspecified part of right lower leg with muscle involvement without evidence of necrosis (2) Malnutrition: CODE(S): E46 - Unspecified protein-calorie malnutrition (3) Foot drop, right: CODE(S): M21.371 - Foot drop, right foot (4) Difficulty walking: CODE(S): R26.2 - Difficulty in walking, not elsewhere classified (5) Delayed wound healing: CODE(S): T14.8XXD - Other injury of unspecified body region, subsequent encounter PLAN: This is a 70-year-old male with multiple medical problems, as discussed above. He had a prior fasciotomy site which was performed remotely as a result of a compartment syndrome secondary to acute arterial ischemia. The patient developed a chronic foot drop as result. This site did eventually heal and has now reopened with continued delayed healing. Subcutaneous excisional debridement was performed as noted in the clinical panel to control recurrent bioburden development. 15 blade and misonix debridement was performed after verbal consent and he tolerated this well. To wash with soap and water. To change dressing daily with aquacell ag (4x4) with additional secondary dressing including gauze. To moistened with saline if this is starting to get to dry. 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 He has undergone at least 2 right lower extremity vascularization procedures in the right lower extremity by Dr. Scot Yarbrough, the most recent of which was performed in November 2019. The case was recently reviewed with Dr. Yarbrough and he is considered optimized at this time with no additional intervention recommendations. He understands he is at risk for limb loss including amputation. He does not want to proceed forward with an amputation at this time and elects to proceed forward with a palliative wound care plan. To continue to change dressing daily with aqua cell AG and to wash with soap and water. To avoid soaking. I also still recommend a nutrition referral. His pain is controlled today. I recommend he continue to follow-up with pain management and reduction in narcotic medication is also recommended to reduce chance of addiction. To continue gabapentin management and considered sympathetic nerve block with pain management. He was advised to continue with his ankle foot orthotic brace. I answered all of his questions. To return to wound healing center in 3 to 4 weeks. He would like to continue with a palliative type wound care program at this time. Note: [employer] speech recognition shrub planter software was used to create portions of this document. Sound-alike and misspelled words, as well as other shrub planter errors may be contained in the documentation.
== END 2021-04-09 23:59 ==
LOC: WC 14:17
PROVIDERS: Family Provider Family Medicine; PCP Family Medicine; Referring Provider Podiatrist; Visit Provider Podiatrist
DX: L97.812 Non-pressure chronic ulcer of other part of right lower leg with fat layer exposed (principal); M21.371 Foot drop, right foot; R26.2 Difficulty in walking, not elsewhere classified
CPT/HCPCS: 11042; 29445

== ENCOUNTER 2021-04-12 14:15 | Outpatient (RCR) | payer MEDICARE, MEDICAID, SELFPAY ==
[2021-04-10 00:16] VITALS: BP 148/79; PULSE 71; RESP 17; TEMP 36.7; O2SAT 96; BMI 25.2
[2021-04-12 14:17] VITALS: BP 154/83; PULSE 74; RESP 16; TEMP 36.5; BMI 25.2
--- NOTE | 2021-04-12 14:51 | PN.PCM_ITS ---
History of Present Illness Date of Service: 04/12/21 Chief Complaint: Chronic, non-healing wound of the right leg History of Wound: This 71 year-old male follows up for chronic right leg ulcer. He has recent increased pain and denies redness or odor. He change the dressing with Aquacel Ag. He denies fever, chill, nausea, vomiting. He has exhausted all arterial vascular surgery procedures and is optimized at this time. He has a history of recurrent infections and bacterial contamination but not recently (not recently). He denies infection concerns at this time and changes his dressing daily with silver product. He denies new lower extremity complaints today. He underwent specialized misonix debridement at a recent visit. He relates it was sore for couple days and now is aching intermittently. He denies reinjury. He wears his brace as advised. Progress of Wound: Recently improving Objective Data Objective Data Vital Signs: Vital Signs Temp Pulse Resp BP Pulse Ox 97.7 F L 74 16 154/83 H 96 04/12/21 14:17 04/12/21 14:17 04/12/21 14:17 04/12/21 14:17 04/10/21 00:16 Oxygen Delivery Method Room Air Weight: 91.138 kg Body Mass Index (BMI) 25.2 Physical Exam Const alert and oriented x3 General Appearance: cooperative HEENT normocephalic Extremity Extremity Narrative: No calf tenderness Diminished pulses Muscle wasting noted Residual subtle dropfoot and prior toe amputation unchanged Decreased pain with cold manipulation General Extremity: edema and no tenderness to palpation of joints or extremities; Negative for cyanosis Skin Skin Narrative: no purulence, no streaking, no odor, no infection. Deep tissue including fascial compartments are exposed without bone exposure. Adjacent skin is hairless and atrophic. Reduced ulcer length. General Skin Exam: Negative for erythema Neuro Neuro Narrative: lack of normal epicritic sensation via light touch is consistent with neuropathy status Psych cooperative and affect normal Debridement Note Debridement Note Wound debrided: Right leg Wound Grade/Stage: Type of Debridement: Excisional debridement Anesthesia Used: 4% Lidocaine Solution Depth: in the subcutaneous layer Percentage of wound debrided: 100 Instrument Used: #15 blade Tissue Removed: fibrous, devitalized subcutaneous, biofilm, slough Severity: Fat Layer Exposed Amount of bleeding with debridement: Mild Bleeding Controlled with: Pressure Patient tolerated procedure: Patient tolerated procedure well Post-Debridement Measurements and Additional Note: Post-Debridement Measurements/Treatment - Nurse 1 - General Ulcer Assessment Start: 04/12/21 14:17 Freq: Status: Active Protocol: OPAL Activity Type Activity Date Activity User E-Sign Co-Sign Detail Recorded Client Recorded Date Recorded By Document 04/12/21 14:17 [facility] [id number] 04/12/21 14:24 [facility] 04/12/21 14:17 WC - Today's Visit Information Type of service 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[employer] ) Arrival Mode Ambulatory,Cane Transfer Assistance None Patient Identification Verified (Name & Yes ) Patient Requires Transmission-Based No Precautions Height and Weight Body Mass Index (BMI) 25.2 BMI Classification Overweight Vital Signs Temperature (97.8 F-99.1 F) 97.7 F L Temperature Source Temporal Pulse Rate (60-100) 74 Pulse Location Monitor Respiratory Rate (12-18) 16 Respiratory rate source Observation Oxygen Delivery Method Room Air Blood Pressure (90/60-120/80) 154/83 H Blood Pressure Mean (mm Hg) 106 Source Monitor Position Sitting Blood Pressure Location Right Arm History Since Last Visit- (Skip if this is Patient's initial visit) Have you changed medications since your No last visit? Any new allergies or adverse reactions No Had a fall/change in ADL's that may No increase risk of falls Signs or symptoms of abuse and/or No neglect since last visit Have you been in the hospital since your No last visit? Has dressing in place as prescribed Yes Has compression in place as prescribed Yes Has offloadiing in place as prescribed N/A Experienced any changes in pain level or No management Left Footwear Custom Shoe Right Footwear Custom Shoe Pain Scale: 0-10 Numeric Is Patient Pain Free? Yes - Nurse 1 - General Ulcer Measurement Start: 04/12/21 14:17 Freq: Status: Active Protocol: Activity Type Activity Date Activity User E-Sign Co-Sign Detail Recorded Client Recorded Date Recorded By Document 04/12/21 14:17 [facility] [id number] 04/12/21 14:24 [facility] 04/12/21 14:17 Wound Center Nurse 1 #4 R Lat Lower Leg -Combined with other wound No -Current Size (cm) - Length 4.5 -Current Size (cm) - Width 0.5 -Current Size (cm) - Depth 0.5 -Total Square Cm 2.25 -Photo Taken No -Epithelialization None Present -Tunneling No -Undermining/Tunneling No -Circular Undermining No -Exudate Amt Medium -Exudate Type Serous -Wound Margin Thickened & Rolled Under -Granulation Amt Small (1-33%) -Granulation Quality Red -Slough/Fibrin Yes -Necrosis Amt Large (67-100%) -Necrotic Tissue Type Adherent Slough -Texture (Denisa-wound Skin Appearance) Assessed, Scarring -Moisture (Denisa-wound Skin Appearance) Assessed -Color (Denisa-wound Skin Appearance) Assessed -Temperature (Denisa-wound Skin No Abnormality Appearance) (Pt Warm) -Tenderness on Palpation (Denisa-wound No Skin Appearance) -Ulcer Cleansing Rinsed/ Irrigated with Saline -Foul Odor after Cleansing No -Anesthetic Used 5% Lidocaine Gel Lower Limb Edema Present Yes Right Calf (cm) 31.3 Right Ankle (cm) 19.8 WC - Nurse 2 - General Ulcer CM Notes Start: 04/12/21 14:17 Freq: Status: Active Protocol: Activity Type Activity Date Activity User E-Sign Co-Sign Detail Recorded Client Recorded Date Recorded By Document 04/12/21 14:43 [facility] [id number] 04/12/21 14:44 [facility] 04/12/21 14:43 Wound Center Nurse 2 #4 R Lat Lower Leg -Time 14:43 -Correct Patient Yes -Correct Side, Site, Position Yes -Correct Procedure Yes -Procedure Performed Yes -Type of Procedure Debridement -Clinical Debridement Subcutaneous -Tissue Removed Subcutaneous -Post Debridement (cm) - Length 4.2 -Post Debridement (cm) - Width 0.5 -Post Debridement (cm) - Depth 0.4 -Total Square (Post) (cm) 2.10 -Area of Debridement (cm) - Length 4.2 -Area of Debridement (cm) - Width 0.5 -Total Square (Area) (cm) 2.10 -Tunneling No -Undermining/Tunneling No -Circular Undermining No -Wound/Ulcer Outcome Not Healed -Ulcer Cleansing Rinsed/ Irrigated with Saline -Foul Odor after Cleansing No -Bioengineered Tissue No -Bleeding Controlled with Pressure -Offloading No -Treatment Response Procedure Tolerated Well -Debridement - Subq, 1st 20sq cm Yes Pain Scale: 0-10 Numeric Is Patient Pain Free? Yes Assessment/Plan Assessment/Plan (1) Ulcer of right lower extremity with muscle involvement without evidence of necrosis: CODE(S): L97.915 - Non-pressure chronic ulcer of unspecified part of right lower leg with muscle involvement without evidence of necrosis (2) Malnutrition: CODE(S): E46 - Unspecified protein-calorie malnutrition (3) Foot drop, right: CODE(S): M21.371 - Foot drop, right foot (4) Difficulty walking: CODE(S): R26.2 - Difficulty in walking, not elsewhere classified (5) Delayed wound healing: CODE(S): T14.8XXD - Other injury of unspecified body region, subsequent encounter PLAN: This is a 70-year-old male with multiple medical problems, as discussed above. He had a prior fasciotomy site which was performed remotely as a result of a compartment syndrome secondary to acute arterial ischemia. The patient developed a chronic foot drop as result. This site did eventually heal and has now reopened with continued delayed healing. Subcutaneous excisional debridement was performed as noted in the clinical panel to control recurrent bioburden development. He had a recent misonix debridement at prior visit and regular 15 blade scalpel debridement today. His reduced ul cer size is noted. To wash with soap and water. To change dressing daily with aquacell ag (4x4) with additional secondary dressing including gauze. To moistened with saline if this is starting to get to dry. 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 He has undergone at least 2 right lower extremity vascularization procedures in the right lower extremity by Dr. Scot Yarbrough, the most recent of which was performed in November 2019. The case was recently reviewed with Dr. Yarbrough and he is considered optimized at this time with no additional intervention recommendations. He understands he is at risk for limb loss including amputation. He does not want to proceed forward with an amputation at this time and elects to proceed forward with a palliative wound care plan. To continue to change dressing daily with SpecifiedBya cell AG and to wash with soap and water. To avoid soaking. I also still recommend a nutrition referral. His pain is controlled today. I recommend he continue to follow-up with pain management and reduction in narcotic medication is also recommended to reduce chance of addiction. To continue gabapentin management and considered sympathetic nerve block with pain management. Due to his reported leg aching I would like to get an updated x-ray. He was called after clinic and was informed that there are no osseous changes. I do not recommend additional intervention at this time. His leg they have been irritated from the debridement and his ulcer reduced size is noted. He was reassured no local signs of infection were noted during clinic. He was advised to continue with his ankle foot orthotic brace. I answered all of his questions. To return to wound healing center in 3 to 4 weeks. He would like to continue with a palliative type wound care program at this time. Note: [employer] speech recognition automobile body customizer software was used to create portions of this document. Sound-alike and misspelled words, as well as other automobile body customizer errors may be contained in the documentation.
--- NOTE | 2021-04-12 15:09 | RAD_ITS ---
STUDY: X-RAY - RIGHT TIBIA AND FIBULA REASON FOR EXAM: Male, 71 years old. CHRONIC ULCER TECHNIQUE: 4 view(s) of the tibia and fibula were obtained. COMPARISON: None. FINDINGS: Normal visualized tibia. Normal visualized fibula. There is no demonstrated acute fracture. Atherosclerotic calcifications are present in the posterior distal thigh region. A vascular stent is seen overlying the proximal one third fibula. RAD/Tibia & Fibula 2 Views IMPRESSION: No acute process seen Electronically Signed: Nacho Reed MD at 16:09 EDT , Service support ,
== END 2021-05-09 23:59 ==
LOC: WC 14:15
PROVIDERS: Family Provider Family Medicine; PCP Family Medicine; Referring Provider Podiatrist; Visit Provider Podiatrist
DX: L97.812 Non-pressure chronic ulcer of other part of right lower leg with fat layer exposed (principal); R26.2 Difficulty in walking, not elsewhere classified; M21.371 Foot drop, right foot
CPT/HCPCS: 11042; 73590

== ENCOUNTER 2021-05-24 13:30 | Outpatient (RCR) | payer MEDICARE, MEDICAID, SELFPAY ==
[2021-05-10 00:21] VITALS: BP 154/83; PULSE 74; RESP 16; TEMP 36.5; O2SAT 96; BMI 25.2
[2021-05-10 13:40] VITALS: BP 152/72; PULSE 72; RESP 18; TEMP 36.4; BMI 25.2
--- NOTE | 2021-05-10 14:27 | PN.PCM_ITS ---
History of Present Illness Date of Service: 05/10/21 Chief Complaint: Chronic, non-healing wound of the right leg History of Wound: This 71 year-old male follows up for chronic right leg ulcer. He has recent increased pain and denies redness or odor. He change the dressing with Aquacel Ag. He denies fever, chill, nausea, vomiting. He has exhausted all arterial vascular surgery procedures and is optimized at this time. He has a history of recurrent infections and bacterial contamination but not recently (not recently). He denies infection concerns at this time and changes his dressing daily with silver product. He denies new lower extremity complaints today. He underwent specialized misonix debridement at a recent visit. He relates it was sore for couple days and now is aching intermittently. He denies reinjury. He wears his brace as advised. He reports increased pain and swelling to his wound site. He denies no redness or odor. This pain has worsened over the past 4 days. Progress of Wound: Stable Objective Data Objective Data Vital Signs: Vital Signs Temp Pulse Resp BP Pulse Ox 97.5 F L 72 18 152/72 H 96 05/10/21 13:40 05/10/21 13:40 05/10/21 13:40 05/10/21 13:40 05/10/21 00:21 Weight: 91.138 kg Body Mass Index (BMI) 25.2 Physical Exam Const alert and oriented x3 General Appearance: cooperative HEENT normocephalic Extremity Extremity Narrative: No calf tenderness Diminished pulses Muscle wasting noted Residual subtle dropfoot and prior toe amputation unchanged Decreased pain with cold manipulation General Extremity: edema and no tenderness to palpation of joints or extremities; Negative for cyanosis Skin Skin Narrative: no purulence, no streaking, no odor, no infection. Deep tissue including fascial compartments are exposed without bone exposure. Adjacent skin is hairless and atrophic. mild distal edema noted. no additional new deeper tissue noted. General Skin Exam: Negative for erythema Neuro Neuro Narrative: lack of normal epicritic sensation via light touch is consistent with neuropathy status Psych cooperative and affect normal Debridement Note Debridement Note Wound debrided: right leg Wound Grade/Stage: Type of Debridement: Excisional debridement Anesthesia Used: 4% Lidocaine Solution Depth: in the subcutaneous layer Percentage of wound debrided: 100 Instrument Used: #15 blade Tissue Removed: fibrous, devitalized subcutaneous, biofilm, slough Severity: Fat Layer Exposed Amount of bleeding with debridement: Mild Bleeding Controlled with: Pressure Patient tolerated procedure: Patient tolerated procedure well Post-Debridement Measurements and Additional Note: Post-Debridement Measurements/Treatment WC - Nurse 1 - General Ulcer Assessment Start: 05/10/21 13:40 Freq: Status: Active Protocol: OPAL Activity Type Activity Date Activity User E-Sign Co-Sign Detail Recorded Client Recorded Date Recorded By Document 05/10/21 13:40 JESSE [id number] 05/10/21 13:42 RB 05/10/21 13:40 WC - Today's Visit Information Type of service 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[employer] ) Arrival Mode Ambulatory Transfer Assistance None Patient Identification Verified (Name & Yes ) Patient Requires Transmission-Based No Precautions Height and Weight Body Mass Index (BMI) 25.2 BMI Classification Overweight Vital Signs Temperature (97.8 F-99.1 F) 97.5 F L Temperature Source Temporal Pulse Rate (60-100) 72 Pulse Location Monitor Respiratory Rate (12-18) 18 Respiratory rate source Observation Blood Pressure (90/60-120/80) 152/72 H Blood Pressure Mean (mm Hg) 98 Source Monitor Position Semi-Fowlers Blood Pressure Location Left Arm History Since Last Visit- (Skip if this is Patient's initial visit) Have you changed medications since your No last visit? Any new allergies or adverse reactions No Had a fall/change in ADL's that may No increase risk of falls Signs or symptoms of abuse and/or No neglect since last visit Have you been in the hospital since your No last visit? Has dressing in place as prescribed Yes Has compression in place as prescribed No Has offloadiing in place as prescribed No Experienced any changes in pain level or No management Pain Scale: 0-10 Numeric Is Patient Pain Free? No LLE -Description Sharp -Intensity 8 -Duration (hours) Acute -Pain Behavior Withdrawal from Touch,Grasping Site -Pain Aggravating Factors ADL's -Alleviating Factors/Interventions Exercise/ Ambulation -Effectiveness of Alleviating Factor/ Minimally Intervention effective WC - Nurse 1 - General Ulcer Measurement Start: 05/10/21 13:40 Freq: Status: Active Protocol: Activity Type Activity Date Activity User E-Sign Co-Sign Detail Recorded Client Recorded Date Recorded By Document 05/10/21 13:40 JESSE [id number] 05/10/21 13:42 RB 05/10/21 13:40 Wound Center Nurse 1 #4 R Lat Lower Leg -Combined with other wound No -Current Size (cm) - Length 4 -Current Size (cm) - Width 0.4 -Current Size (cm) - Depth 1 -Total Square Cm 1.6 -Tunneling No -Undermining/Tunneling Yes -Undermining/Tunneling Starts (O'clock 12 ) -Undermining/Tunneling Ends (O'clock) 6 -Maximum Distance (cm) 0.8 -Exudate Amt Large -Exudate Type Serosanguineous -Wound Margin Thickened & Rolled Under -Granulation Amt Medium (34-66%) -Granulation Quality [place] -Slough/Fibrin Yes -Necrosis Amt Small (1-33%) -Necrotic Tissue Type Adherent Slough -Structure Exposed N/A -Texture (Denisa-wound Skin Appearance) Assessed, Scarring -Moisture (Denisa-wound Skin Appearance) Assessed -Color (Denisa-wound Skin Appearance) Assessed -Temperature (Denisa-wound Skin No Abnormality Appearance) (Pt Warm) -Tenderness on Palpation (Denisa-wound No Skin Appearance) -Ulcer Cleansing Wound Cleanser -Foul Odor after Cleansing No -Anesthetic Used 4% Lidocaine Solution WC - Nurse 2 - General Ulcer CM Notes Start: 05/10/21 13:40 Freq: Status: Active Protocol: Activity Type Activity Date Activity User E-Sign Co-Sign Detail Recorded Client Recorded Date Recorded By Document 05/10/21 13:49 [facility] [id number] 05/10/21 13:53 [facility] 05/10/21 13:49 Wound Center Nurse 2 -Time 13:49 -Correct Patient Yes -Correct Side, Site, Position Yes -Correct Procedure Yes -Procedure Performed Yes -Type of Procedure Debridement -Clinical Debridement Subcutaneous -Tissue Removed Subcutaneous -Post Debridement (cm) - Length 4.2 -Post Debridement (cm) - Width 0.5 -Post Debridement (cm) - Depth 1.0 -Total Square (Post) (cm) 2.10 -Area of Debridement (cm) - Length 4.2 -Area of Debridement (cm) - Width 0.5 -Total Square (Area) (cm) 2.10 -Tunneling No -Undermining/Tunneling No -Circular Undermining No -Wound/Ulcer Outcome Not Healed -Ulcer Cleansing Rinsed/ Irrigated with Saline -Foul Odor after Cleansing No -Bioengineered Tissue No -Bleeding Controlled with Pressure -Offloading No -Treatment Response Procedure Tolerated Well -Debridement - Subq, 1st 20sq cm Yes Pain Scale: 0-10 Numeric Is Patient Pain Free? Yes - Nurse 3 - General Ulcer D/C NN Start: 05/10/21 13:40 Freq: Status: Active Protocol: Activity Type Activity Date Activity User E-Sign Co-Sign Detail Recorded Client Recorded Date Recorded By Document 05/10/21 14:02 [facility] [id number] 05/10/21 14:02 [facility] 05/10/21 14:02 Wound Care Nurse 3 #4 R Lat Lower Leg -Ulcer Cleansing Rinsed/ Irrigated with Saline -Foul Odor after Cleansing No -Primary Dressing Applied Aquacel AG 4x4 -Primary Dressing Covered/Secured with Dry Gauze & Roll Gauze, Secured with Tape -Aquacel AG 4x4 1 Left -Other own single layer tubi applied Treatment Response Procedure Tolerated Well Pain Scale: 0-10 Numeric Is Patient Pain Free? Yes - Visit Discharge Discharge Condition Stable Ambulatory Status Ambulatory,Cane Transportation Private Auto Assessment/Plan Assessment/Plan (1) Ulcer of right lower extremity with muscle involvement without evidence of necrosis: CODE(S): L97.915 - Non-pressure chronic ulcer of unspecified part of right lower leg with muscle involvement without evidence of necrosis (2) Malnutrition: CODE(S): E46 - Unspecified protein-calorie malnutrition (3) Foot drop, right: CODE(S): M21.371 - Foot drop, right foot (4) Difficulty walking: CODE(S): R26.2 - Difficulty in walking, not elsewhere classified (5) Delayed wound healing: CODE(S): T14.8XXD - Other injury of unspecified body region, subsequent encounter PLAN: This is a 71-year-old male with multiple medical problems, as discussed above. He had a prior fasciotomy site which was performed remotely as a result of a compartment syndrome secondary to acute arterial ischemia. The patient developed a chronic foot drop as result. This site did eventually heal and has now reopened with continued delayed healing. Subcutaneous excisional debridement was performed as noted in the clinical panel to control recurrent bioburden development. He had a recent misonix debridement at prior visit and regular 15 blade scalpel debridement today. His reduced ulcer size is noted. To wash with soap and water. To change dressing daily with aquacell ag (4x4) with additional secondary dressing including gauze. To moistened with saline if this is starting to get to dry. 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 He has undergone at least 2 right lower extremity vascularization procedures in the right lower extremity by Dr. Scot Yarbrough, the most recent of which was performed in November 2019. The case was recently reviewed with Dr. Yarbrough and he is considered optimized at this time with no additional intervention recommendations. He understands he is at risk for limb loss including amputation. He does not want to proceed forward with an amputation at this time and elects to proceed forward with a palliative wound care plan. To continue to change dressing daily with aqua cell AG and to wash with soap and water. To avoid soaking. I also still recommend a nutrition referral. He did have noted increased pain and edema. I would like to obtain a deep wound culture in case this is an early onset sign of infection or bacterial contamination. This was obtained I will call him with results including aerobic, anaerobic and MRSA PCR. He understands an antibiotic may be required in the near future. He was advised to continue with his ankle foot orthotic brace. I answered all of his questions. To return to wound healing center in 3 to 4 weeks. He would like to continue with a palliative type wound care program at this time. Note: [employer] speech recognition line tester software was used to create portions of this document. Sound-alike and misspelled words, as well as other line tester errors may be contained in the documentation. The medical decision making level is moderate. There is noted moderate risk of morbidity after considering this treatment plan and diagnostic data. Considerations were given to prescription management, decisions regarding surgical options, or social determinants of health. The problems addressed require a moderate decision making level which includes one or more chronic illnesses (w/ exacerbation, progression, or side effects), two or more stable chronic illnesses, one undiagnosed new problem w/ uncertain prognosis, one acute illness with systemic symptoms, or one acute complicated injury.
[2021-05-11 15:39] LABS: M R Staph aureus DNA By PCR Negative (Negative); Specimen Processing Control PASS; Staph aureus DNA By PCR NEGATIVE (Negative)
[2021-05-11 15:40] LABS: Probe Check PASS
[2021-05-24 13:32] VITALS: BP 150/83; PULSE 75; RESP 16; TEMP 35.8; BMI 25.2
--- NOTE | 2021-05-24 14:00 | PCM.WC.PN ---
History of Present Illness Date of Service: 05/24/21 Chief Complaint: Chronic, non-healing wound of the right leg History of Wound: This 71 year-old male follows up for chronic right leg ulcer. He has recent increased pain and denies redness or odor. He change the dressing with Aquacel Ag. He denies fever, chill, nausea, vomiting. He has exhausted all arterial vascular surgery procedures and is optimized at this time. He has a history of recurrent infections and bacterial contamination but not recently (not recently). He denies infection concerns at this time and changes his dressing daily with silver product. He denies new lower extremity complaints today. He underwent specialized misonix debridement at a recent visit. He relates it was sore for couple days and now is aching intermittently. He denies reinjury. He wears his brace as advised. He is currently under pain management care and recently had his medications adjusted. He started his antibiotic course. his swelling is resolved and denies redness. Progress of Wound: Stable Objective Data Objective Data Vital Signs: Vital Signs Temp Pulse Resp BP Pulse Ox 96.4 F L 75 16 150/83 H 96 05/24/21 13:32 05/24/21 13:32 05/24/21 13:32 05/24/21 13:32 05/10/21 00:21 Oxygen Delivery Method Room Air Weight: 91.138 kg Body Mass Index (BMI) 25.2 Lab / Micro Data Micro: Microbiology 05/11/21 Unknown Wound Abcess - Leg, Right Gram Stain - Final 05/11/21 Unknown Wound Abcess - Leg, Right Wound Culture - Final Klebsiella oxytoca Enterobacter cloacae complex Stenotrophomonas maltophilia 05/11/21 Unknown Wound Abcess - Leg, Right Anaerobic Culture - Final Anaerobic cocci Physical Exam Extremity Extremity Narrative: No calf tenderness Diminished pulses Muscle wasting noted Residual subtle dropfoot and prior toe amputation unchanged Decreased pain with cold manipulation Skin Skin Narrative: no purulence, no streaking, no odor, no infection. Deep tissue including fascial compartments are exposed without bone exposure. Adjacent skin is hairless and atrophic. mild distal edema noted. no additional new deeper tissue noted. Neuro Neuro Narrative: lack of normal epicritic sensation via light touch is consistent with neuropathy status Debridement Note Debridement Note Wound debrided: Lateral right leg Wound Grade/Stage: Type of Debridement: Excisional debridement Anesthesia Used: 4% Lidocaine Solution Depth: in the subcutaneous layer Percentage of wound debrided: 100 Instrument Used: #15 blade Tissue Removed: fibrous, devitalized subcutaneous, biofilm, slough Severity: Fat Layer Exposed Amount of bleeding with debridement: Mild Bleeding Controlled with: Pressure Patient tolerated procedure: Patient tolerated procedure well Post-Debridement Measurements and Additional Note: Post-Debridement Measurements/Treatment WC - Nurse 1 - General Ulcer Assessment Start: 05/10/21 13:40 Freq: Status: Active Protocol: OPAL Activity Type Activity Date Activity User E-Sign Co-Sign Detail Recorded Client Recorded Date Recorded By Document 05/10/21 13:40 RB [id number] 05/10/21 13:42 RB Document 05/24/21 13:32 BM [id number] 05/24/21 13:41 BMF 05/10/21 05/24/21 13:40 13:32 JENNIFER - Today's Visit Information Type of service Follow-up Visit Follow-up 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 (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 ) ) Arrival Mode Ambulatory Ambulatory,Cane Transfer Assistance None None Patient Identification Verified (Name & Yes Yes ) Patient Requires Transmission-Based No No Precautions Height and Weight Body Mass Index (BMI) 25.2 25.2 BMI Classification Overweight Overweight Vital Signs Temperature (97.8 F-99.1 F) 97.5 F L 96.4 F L Temperature Source Temporal Temporal Pulse Rate (60-100) 72 75 Pulse Location Monitor Monitor Respiratory Rate (12-18) 18 16 Respiratory rate source Observation Observation Oxygen Delivery Method Room Air Blood Pressure (90/60-120/80) 152/72 H 150/83 H Blood Pressure Mean (mm Hg) 98 105 Source Monitor Monitor Position Semi-Fowlers Sitting Blood Pressure Location Left Arm Left Arm History Since Last Visit- (Skip if this is Patient's initial visit) Have you changed medications since your No Yes last visit? Any new allergies or adverse reactions No No Had a fall/change in ADL's that may No No increase risk of falls Signs or symptoms of abuse and/or No No neglect since last visit Have you been in the hospital since your No No last visit? Has dressing in place as prescribed Yes Yes Has compression in place as prescribed No Yes Has offloadiing in place as prescribed No N/A Experienced any changes in pain level or No No management Left Footwear Regular Shoe Right Footwear Regular Shoe Pain Scale: 0-10 Numeric Is Patient Pain Free? No Yes LLE -Description Sharp -Intensity 8 -Duration (hours) Acute -Pain Behavior Withdrawal from Touch,Grasping Site -Pain Aggravating Factors ADL's -Alleviating Factors/Interventions Exercise/ Ambulation -Effectiveness of Alleviating Factor/ Minimally Intervention effective WC - Nurse 1 - General Ulcer Measurement Start: 05/10/21 13:40 Freq: Status: Active Protocol: Activity Type Activity Date Activity User E-Sign Co-Sign Detail Recorded Client Recorded Date Recorded By Document 05/10/21 13:40 RB [id number] 05/10/21 13:42 RB Document 05/24/21 13:32 BM [id number] 05/24/21 13:41 BMF 05/10/21 05/24/21 13:40 13:32 Wound Center Nurse 1 #4 R Lat Lower Leg -Combined with other wound No No -Current Size (cm) - Length 4 4.3 -Current Size (cm) - Width 0.4 0.4 -Current Size (cm) - Depth 1 0.8 -Total Square Cm 1.6 1.72 -Photo Taken No -Epithelialization None Present -Tunneling No No -Undermining/Tunneling Yes Yes -Undermining/Tunneling Starts (O'clock 12 1 ) -Undermining/Tunneling Ends (O'clock) 6 5 -Maximum Distance (cm) 0.8 0.7 -Circular Undermining No -Exudate Amt Large Medium -Exudate Type Serosanguineous Serosanguineous -Wound Margin Thickened & Distinct, Rolled Under Outline Attached -Granulation Amt Medium (34-66%) Small (1-33%) -Granulation Quality Gustavus Red -Slough/Fibrin Yes Yes -Necrosis Amt Small (1-33%) Large (67-100%) -Necrotic Tissue Type Adherent Slough Adherent Slough -Structure Exposed N/A -Texture (Denisa-wound Skin Appearance) Assessed, Assessed, Scarring Scarring -Moisture (Denisa-wound Skin Appearance) Assessed Assessed -Color (Denisa-wound Skin Appearance) Assessed Assessed -Temperature (Denisa-wound Skin No Abnormality No Abnormality Appearance) (Pt Warm) (Pt Warm) -Tenderness on Palpation (Denisa-wound No Yes Skin Appearance) -Ulcer Cleansing Wound Cleanser Rinsed/ Irrigated with Saline -Foul Odor after Cleansing No No -Anesthetic Used 4% Lidocaine 5% Lidocaine Solution Gel Right Calf (cm) 31.5 Right Ankle (cm) 20.5 WC - Nurse 2 - General Ulcer CM Notes Start: 05/10/21 13:40 Freq: Status: Active Protocol: Activity Type Activity Date Activity User E-Sign Co-Sign Detail Recorded Client Recorded Date Recorded By Document 05/10/21 13:49 [id number] 05/10/21 13:53 Document 05/24/21 13:55 [id number] 05/24/21 13:56 05/10/21 05/24/21 13:49 13:55 Wound Center Nurse 2 #4 R Lat Lower Leg -Time 13:49 13:55 -Correct Patient Yes Yes -Correct Side, Site, Position Yes Yes -Correct Procedure Yes Yes -Procedure Performed Yes Yes -Type of Procedure Debridement Debridement -Clinical Debridement Subcutaneous Subcutaneous -Tissue Removed Subcutaneous Subcutaneous -Post Debridement (cm) - Length 4.2 4.4 -Post Debridement (cm) - Width 0.5 0.4 -Post Debridement (cm) - Depth 1.0 0.8 -Total Square (Post) (cm) 2.10 1.76 -Area of Debridement (cm) - Length 4.2 4.4 -Area of Debridement (cm) - Width 0.5 0.4 -Total Square (Area) (cm) 2.10 1.76 -Tunneling No No -Undermining/Tunneling No No -Circular Undermining No No -Wound/Ulcer Outcome Not Healed Not Healed -Ulcer Cleansing Rinsed/ Rinsed/ Irrigated with Irrigated with Saline Saline -Foul Odor after Cleansing No No -Bioengineered Tissue No No -Bleeding Controlled with Pressure Pressure -Offloading No No -Treatment Response Procedure Procedure Tolerated Well Tolerated Well -Debridement - Subq, 1st 20sq cm Yes Yes Pain Scale: 0-10 Numeric Is Patient Pain Free? Yes Yes - Nurse 3 - General Ulcer D/C NN Start: 05/10/21 13:40 Freq: Status: Active Protocol: Activity Type Activity Date Activity User E-Sign Co-Sign Detail Recorded Client Recorded Date Recorded By Document 05/10/21 14:02 [facility] [id number] 05/10/21 14:02 BM 05/10/21 14:02 Wound Care Nurse 3 #4 R Lat Lower Leg -Ulcer Cleansing Rinsed/ Irrigated with Saline -Foul Odor after Cleansing No -Primary Dressing Applied Aquacel AG 4x4 -Primary Dressing Covered/Secured with Dry Gauze & Roll Gauze, Secured with Tape -Aquacel AG 4x4 1 Left -Other own single layer tubi applied Treatment Response Procedure Tolerated Well Pain Scale: 0-10 Numeric Is Patient Pain Free? Yes WC - Visit Discharge Discharge Condition Stable Ambulatory Status Ambulatory,Cane Transportation Private Auto Assessment/Plan Assessment/Plan (1) Ulcer of right lower extremity with muscle involvement without evidence of necrosis: CODE(S): L97.915 - Non-pressure chronic ulcer of unspecified part of right lower leg with muscle involvement without evidence of necrosis (2) Malnutrition: CODE(S): E46 - Unspecified protein-calorie malnutrition (3) Foot drop, right: CODE(S): M21.371 - Foot drop, right foot (4) Difficulty walking: CODE(S): R26.2 - Difficulty in walking, not elsewhere classified (5) Delayed wound healing: CODE(S): T14.8XXD - Other injury of unspecified body region, subsequent encounter (6) Cellulitis of right lower limb: CODE(S): L03.115 - Cellulitis of right lower limb PLAN: This is a 71-year-old male with multiple medical problems, as discussed above. He had a prior fasciotomy site which was performed remotely as a result of a compartment syndrome secondary to acute arterial ischemia. The patient developed a chronic foot drop as result. This site did eventually heal and has now reopened with continued delayed healing. Subcutaneous excisional debridement was performed as noted in the clinical panel to control recurrent bioburden development. He had a recent misonix debridement at prior visit and regular 15 blade scalpel debridement today. His reduced ulcer size is noted. To wash with soap and water. To change dressing daily with aquacell ag (4x4) with additional secondary dressing including gauze. To moistened with saline if this is starting to get to dry. 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 He has undergone at least 2 right lower extremity vascularization procedures in the right lower extremity by Dr. Scot Yarbrough, the most recent of which was performed in November 2019. The case was recently reviewed with Dr. Yarbrough and he is considered optimized at this time with no additional intervention recommendations. He understands he is at risk for limb loss including amputation. He does not want to proceed forward with an amputation at this time and elects to proceed forward with a palliative wound care plan. To continue to change dressing daily with aqua cell AG and to wash with soap and water. To avoid soaking. I also still recommend a nutrition referral. He did have noted increased pain and edema. To continue to follow-up with pain management. He had a deep wound culture obtained last week with the following results: Klebsiella oxytoca, Enterobacter cloacae complex, Stenotrophomonas maltophilia and anaerobic cocci. To continue on levofloxacin. Additional refill was provided to allow him to complete a 10-day course. His local signs of infection and inflammation have resolved but his continued pain is still noted. He has significant delays in healing and is at risk for limb loss. Amputation option was also discussed today. Wants proceed forward with his current plan. He was advised to continue with his ankle foot orthotic brace. I answered all of his questions. To return to wound healing center in 1-2 weeks. He would like to continue with a palliative type wound care program at this time. Note: [employer] speech recognition leather scrubber software was used to create portions of this document. Sound-alike and misspelled words, as well as other leather scrubber errors may be contained in the documentation. 21 minutes was spent on this encounter. This included face to face and non face to face care including preparing for the visit, reviewing the history, performing the exam, counseling and providing education to the patient, family, or caregiver, ordering medications/test/ procedures if indicated as documented, communicating with other healthcare providers, documenting information in the medical record, interpreting / sharing this information when indicated as documented, and care coordination.
== END 2021-06-09 23:59 ==
LOC: WC 13:30
PROVIDERS: Family Provider Family Medicine; PCP Family Medicine; Referring Provider Podiatrist; Visit Provider Podiatrist
DX: L97.812 Non-pressure chronic ulcer of other part of right lower leg with fat layer exposed (principal); R26.2 Difficulty in walking, not elsewhere classified; M21.371 Foot drop, right foot; Z87.891 Personal history of nicotine dependence; L03.115 Cellulitis of right lower limb
CPT/HCPCS: 11042; 87070; 87075; 87077; 87186; 87205; 87640

== ENCOUNTER 2021-06-14 13:15 | Outpatient (RCR) | payer MEDICARE, MEDICAID, SELFPAY ==
[2021-06-10 00:21] VITALS: BP 150/83; PULSE 75; RESP 16; TEMP 35.8; O2SAT 96; BMI 25.2
[2021-06-14 13:25] VITALS: BP 163/83; PULSE 68; RESP 18; TEMP 36.6; BMI 25.2
--- NOTE | 2021-06-14 22:34 | PCM.WC.PN ---
History of Present Illness Date of Service: 06/14/21 Chief Complaint: Chronic, non-healing wound of the right leg History of Wound: This 71 year-old male follows up for chronic right leg ulcer. He has recent increased pain and denies redness or odor. He change the dressing with Aquacel Ag. He denies fever, chill, nausea, vomiting. He has exhausted all arterial vascular surgery procedures and is optimized at this time. He has a history of recurrent infections and bacterial contamination but not recently (not recently). He denies infection concerns at this time and changes his dressing daily with silver product. He denies new lower extremity complaints today. He underwent specialized misonix debridement at a recent visit. He relates it was sore for couple days and now is aching intermittently. He denies reinjury. He wears his brace as advised. He is currently under pain management care and recently had his medications adjusted. He started his antibiotic course. his swelling is resolved and denies redness. Progress of Wound: stable Objective Data Objective Data Vital Signs: Vital Signs Temp Pulse Resp BP Pulse Ox 97.9 F 68 18 163/83 H 96 06/14/21 13:25 06/14/21 13:25 06/14/21 13:25 06/14/21 13:25 06/10/21 00:21 Weight: 91.138 kg Body Mass Index (BMI) 25.2 Physical Exam Extremity Extremity Narrative: No calf tenderness Diminished pulses Muscle wasting noted Residual subtle dropfoot and prior toe amputation unchanged Decreased pain with cold manipulation Skin Skin Narrative: no purulence, no streaking, no odor, no infection. Deep tissue including fascial compartments are exposed without bone exposure. Adjacent skin is hairless and atrophic. mild distal edema noted. no additional new deeper tissue noted. Neuro Neuro Narrative: lack of normal epicritic sensation via light touch is consistent with neuropathy status Debridement Note Debridement Note Wound debrided: right leg Wound Grade/Stage: Type of Debridement: Excisional debridement Anesthesia Used: 4% Lidocaine Solution Depth: in the subcutaneous layer Percentage of wound debrided: 100 Instrument Used: #15 blade Tissue Removed: fibrous, devitalized subcutaneous, biofilm, slough Severity: Fat Layer Exposed Amount of bleeding with debridement: Mild Bleeding Controlled with: Pressure Patient tolerated procedure: Patient tolerated procedure well Post-Debridement Measurements and Additional Note: Post-Debridement Measurements/Treatment WC - Nurse 1 - General Ulcer Assessment Start: 06/14/21 13:25 Freq: Status: Active Protocol: OPAL Activity Type Activity Date Activity User E-Sign Co-Sign Detail Recorded Client Recorded Date Recorded By Document 06/14/21 13:25 DL [id number] 06/14/21 13:32 DL 06/14/21 13:25 WC - Today's Visit Information Type of service Follow-up 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/[employer] ) Arrival Mode Ambulatory Transfer Assistance None Patient Identification Verified (Name & Yes ) Patient Requires Transmission-Based No Precautions Height and Weight Body Mass Index (BMI) 25.2 BMI Classification Overweight Vital Signs Temperature (97.8 F-99.1 F) 97.9 F Temperature Source Temporal Pulse Rate (60-100) 68 Pulse Location Monitor Respiratory Rate (12-18) 18 Respiratory rate source Observation Blood Pressure (90/60-120/80) 163/83 H Blood Pressure Mean (mm Hg) 109 Source Monitor History Since Last Visit- (Skip if this is Patient's initial visit) Have you changed medications since your No last visit? Any new allergies or adverse reactions No Had a fall/change in ADL's that may No increase risk of falls Signs or symptoms of abuse and/or No neglect since last visit Have you been in the hospital since your No last visit? Has dressing in place as prescribed Yes Has compression in place as prescribed Yes Has offloadiing in place as prescribed N/A Experienced any changes in pain level or No management Pain Scale: 0-10 Numeric Is Patient Pain Free? Yes WC - Nurse 1 - General Ulcer Measurement Start: 06/14/21 13:25 Freq: Status: Active Protocol: Activity Type Activity Date Activity User E-Sign Co-Sign Detail Recorded Client Recorded Date Recorded By Document 06/14/21 13:25 DL [id number] 06/14/21 13:32 DL 06/14/21 13:25 Wound Center Nurse 1 #4 R Lat Lower Leg -Current Size (cm) - Length 4 -Current Size (cm) - Width 0.5 -Current Size (cm) - Depth 0.6 -Total Square Cm 2.0 -Photo Taken No -Exudate Amt Medium -Exudate Type Yellow/Green -Wound Margin Distinct, Outline Attached -Granulation Amt None Present (0 %) -Necrosis Amt Large (67-100%) -Necrotic Tissue Type Adherent Slough -Structure Exposed N/A -Texture (Denisa-wound Skin Appearance) Scarring -Moisture (Denisa-wound Skin Appearance) No Abnormality -Color (Denisa-wound Skin Appearance) No Abnormality -Temperature (Denisa-wound Skin No Abnormality Appearance) (Pt Warm) -Tenderness on Palpation (Denisa-wound No Skin Appearance) -Ulcer Cleansing Not Cleansed -Foul Odor after Cleansing Yes, Due to Product Use -Anesthetic Used 4% Lidocaine Solution WC - Nurse 2 - General Ulcer CM Notes Start: 06/14/21 13:25 Freq: Status: Active Protocol: Activity Type Activity Date Activity User E-Sign Co-Sign Detail Recorded Client Recorded Date Recorded By Document 06/14/21 13:55 BLANKA [id number] 06/14/21 13:57 BLANKA 06/14/21 13:55 Wound Center Nurse 2 -Time 13:55 -Correct Patient Yes -Correct Side, Site, Position Yes -Correct Procedure Yes -Procedure Performed Yes -Type of Procedure Debridement -Clinical Debridement Subcutaneous -Tissue Removed Subcutaneous -Post Debridement (cm) - Length 4.1 -Post Debridement (cm) - Width 0.6 -Post Debridement (cm) - Depth 0.6 -Total Square (Post) (cm) 2.46 -Area of Debridement (cm) - Length 4.1 -Area of Debridement (cm) - Width 0.6 -Total Square (Area) (cm) 2.46 -Tunneling No -Undermining/Tunneling No -Circular Undermining No -Wound/Ulcer Outcome Not Healed -Ulcer Cleansing Rinsed/ Irrigated with Saline -Foul Odor after Cleansing No -Bioengineered Tissue No -Bleeding Controlled with Pressure -Offloading No -Treatment Response Procedure Tolerated Well -Debridement - Subq, 1st 20sq cm Yes Pain Scale: 0-10 Numeric Is Patient Pain Free? Yes - Nurse 3 - General Ulcer D/C NN Start: 06/14/21 13:25 Freq: Status: Active Protocol: Activity Type Activity Date Activity User E-Sign Co-Sign Detail Recorded Client Recorded Date Recorded By Document 06/14/21 14:15 NAWAF [id number] 06/14/21 14:16 NAWAF 06/14/21 14:15 Wound Care Nurse 3 #4 R Lat Lower Leg -Ulcer Cleansing Rinsed/ Irrigated with Saline -Primary Dressing Applied Aquacel AG 4x4 -Primary Dressing Covered/Secured with Dry Gauze, Secured with Tape -Aquacel AG 4x4 1 Pain Scale: 0-10 Numeric Is Patient Pain Free? Yes WC - Visit Discharge Discharge Condition Stable Ambulatory Status Ambulatory,Cane Transportation Private Auto Accompanied by self Assessment/Plan Assessment/Plan (1) Ulcer of right lower extremity with muscle involvement without evidence of necrosis: CODE(S): L97.915 - Non-pressure chronic ulcer of unspecified part of right lower leg with muscle involvement without evidence of necrosis (2) Malnutrition: CODE(S): E46 - Unspecified protein-calorie malnutrition (3) Foot drop, right: CODE(S): M21.371 - Foot drop, right foot (4) Difficulty walking: CODE(S): R26.2 - Difficulty in walking, not elsewhere classified (5) Delayed wound healing: CODE(S): T14.8XXD - Other injury of unspecified body region, subsequent encounter (6) Cellulitis of right lower limb: CODE(S): L03.115 - Cellulitis of right lower limb PLAN: This is a 71-year-old male with multiple medical problems, as discussed above. He had a prior fasciotomy site which was performed remotely as a result of a compartment syndrome secondary to acute arterial ischemia. The patient developed a chronic foot drop as result. This site did eventually heal and has now reopened with continued delayed healing. Subcutaneous excisional debridement was performed as noted in the clinical panel to control recurrent bioburden development. He had a recent misonix debridement at prior visit and regular 15 blade scalpel debridement today. His reduced ulcer size is noted. To wash with soap and water. To change dressing daily with aquacell ag (4x4) with additional secondary dressing including gauze. To moistened with saline if this is starting to get to dry. 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 He has undergone at least 2 right lower extremity vascularization procedures in the right lower extremity by Dr. Scot Yarbrough, the most recent of which was performed in November 2019. The case was recently reviewed with Dr. Yarbrough and he is considered optimized at this time with no additional intervention recommendations. He understands he is at risk for limb loss including amputation. He does not want to proceed forward with an amputation at this time and elects to proceed forward with a palliative wound care plan. To continue to change dressing daily with aqua cell AG and to wash with soap and water. To avoid soaking. I also still recommend a nutrition referral. He did have noted increased pain and edema. To continue to follow-up with pain management. He had a deep wound culture obtained last week with the following results: Klebsiella oxytoca, Enterobacter cloacae complex, Stenotrophomonas maltophilia and anaerobic cocci. To continue on levofloxacin. this is now resolved and he completed the antbiotic course. He has significant delays in healing and is at risk for limb loss. Amputation option was also discussed today. He wants proceed forward with his current plan. He was advised to continue with his ankle foot orthotic brace. I answered all of his questions. To return to wound healing center in 1-2 weeks. He would like to continue with a palliative type wound care program at this time. Note: [employer] speech recognition brake lining finisher software was used to create portions of this document. Sound-alike and misspelled words, as well as other brake lining finisher errors may be contained in the documentation.
== END 2021-07-10 23:59 ==
LOC: WC 13:15
PROVIDERS: Family Provider Family Medicine; PCP Family Medicine; Referring Provider Podiatrist; Visit Provider Podiatrist
DX: L97.915 Non-pressure chronic ulcer of unspecified part of right lower leg with muscle involvement without evidence of necrosis (principal); L03.115 Cellulitis of right lower limb; R26.2 Difficulty in walking, not elsewhere classified; M21.371 Foot drop, right foot; T14.8XXD Other injury of unspecified body region, subsequent encounter; Y83.8 Other surgical procedures as the cause of abnormal reaction of the patient, or of later complication, without mention of misadventure at the time of the procedure
CPT/HCPCS: 11042

== ENCOUNTER 2021-07-12 13:00 | Outpatient (RCR) | payer MEDICARE, MEDICAID, SELFPAY ==
[2021-07-11 00:25] VITALS: BP 163/83; PULSE 68; RESP 18; TEMP 36.6; O2SAT 96; BMI 25.2
[2021-07-12 13:04] VITALS: BP 159/84; PULSE 80; TEMP 35.7; BMI 25.2
--- NOTE | 2021-07-12 14:14 | PN.PCM_ITS ---
History of Present Illness Date of Service: 07/12/21 Chief Complaint: Chronic, non-healing wound of the right leg History of Wound: This 71 year-old male follows up for chronic right leg ulcer. He has recent increased pain and denies redness or odor. He change the dressing with Aquacel Ag. He denies fever, chill, nausea, vomiting. He has exhausted all arterial vascular surgery procedures and is optimized at this time. He has a history of recurrent infections and bacterial contamination but not recently (not recently). He denies infection concerns at this time and changes his dressing daily with silver product. He denies new lower extremity complaints today. He underwent specialized misonix debridement at a recent visit. He relates it was sore for couple days and now is aching intermittently. He denies reinjury. He wears his brace as advised. He is currently under pain management care and recently had his medications adjusted. He denies redness. Progress of Wound: stable Objective Data Objective Data Vital Signs: Vital Signs Temp Pulse Resp BP Pulse Ox 96.3 F L 80 18 159/84 H 96 07/12/21 13:04 07/12/21 13:04 07/11/21 00:25 07/12/21 13:04 07/11/21 00:25 Weight: 91.138 kg Body Mass Index (BMI) 25.2 Physical Exam Extremity Extremity Narrative: No calf tenderness Diminished pulses Muscle wasting noted Residual subtle dropfoot and prior toe amputation unchanged Decreased pain with cold manipulation Skin Skin Narrative: no purulence, no streaking, no odor, no infection. Deep tissue including fascial compartments are exposed without bone exposure. Adjacent skin is hairless and atrophic. mild distal edema resolved. no additional new d eeper tissue noted. Neuro Neuro Narrative: lack of normal epicritic sensation via light touch is consistent with neuropathy status Debridement Note Debridement Note Wound debrided: right leg Wound Grade/Stage: Type of Debridement: Excisional debridement Anesthesia Used: 4% Lidocaine Solution Depth: in the subcutaneous layer Percentage of wound debrided: 100 Instrument Used: 3mm curette Tissue Removed: fibrous, devitalized subcutaneous, biofilm, slough Severity: Fat Layer Exposed Amount of bleeding with debridement: Mild Bleeding Controlled with: Pressure Patient tolerated procedure: Patient tolerated procedure well Post-Debridement Measurements and Additional Note: Post-Debridement Measurements/Treatment WC - Nurse 1 - General Ulcer Assessment Start: 07/12/21 13:03 Freq: Status: Active Protocol: [email or web address].DAREN Activity Type Activity Date Activity User E-Sign Co-Sign Detail Recorded Client Recorded Date Recorded By Document 07/12/21 13:04 LA [id number] 07/12/21 13:06 LA 07/12/21 13:04 - Today's Visit Information Type of service 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 Any new allergies or adverse reactions No Had a fall/change in ADL's that may No increase risk of falls Signs or symptoms of abuse and/or No neglect since last visit Have you been in the hospital since your No last visit? Has dressing in place as prescribed No Has compression in place as prescribed Yes Has offloadiing in place as prescribed Yes Left Footwear Regular Shoe Right Footwear Regular Shoe Pain Scale: 0-10 Numeric Is Patient Pain Free? Yes - Nurse 1 - General Ulcer Measurement Start: 07/12/21 13:03 Freq: Status: Active Protocol: Activity Type Activity Date Activity User E-Sign Co-Sign Detail Recorded Client Recorded Date Recorded By Document 07/12/21 13:04 LA [id number] 07/12/21 13:06 LA 07/12/21 13:04 Wound Center Nurse 1 #4 R Lat Lower Leg -Combined with other wound No -Current Size (cm) - Length 4.2 -Current Size (cm) - Width 4 -Current Size (cm) - Depth 0.7 -Total Square Cm 16.8 -Photo Taken No -Tunneling No -Undermining/Tunneling No -Circular Undermining No -Change in Wound Grade/Stage No -Exudate Amt Medium -Exudate Type Sanguineous -Wound Margin Distinct, Outline Attached -Granulation Quality Hyper- granulation, [place] -Slough/Fibrin Yes -Necrosis Amt Large (67-100%) -Necrotic Tissue Type Adherent Slough -Structure Exposed N/A -Texture (Denisa-wound Skin Appearance) No Abnormality, Assessed -Moisture (Denisa-wound Skin Appearance) No Abnormality, Assessed -Color (Denisa-wound Skin Appearance) No Abnormality, Assessed -Temperature (Denisa-wound Skin No Abnormality Appearance) (Pt Warm) -Tenderness on Palpation (Denisa-wound No Skin Appearance) -Ulcer Cleansing Rinsed/ Irrigated with Saline -Foul Odor after Cleansing No -Anesthetic Used 4% Lidocaine Solution - Nurse 2 - General Ulcer CM Notes Start: 07/12/21 13:03 Freq: Status: Active Protocol: Activity Type Activity Date Activity User E-Sign Co-Sign Detail Recorded Client Recorded Date Recorded By Document 07/12/21 13:14 [id number] 07/12/21 13:17 07/12/21 13:14 Wound Center Nurse 2 -Time 13:14 -Correct Patient Yes -Correct Side, Site, Position Yes -Correct Procedure Yes -Procedure Performed Yes -Type of Procedure Debridement -Clinical Debridement Subcutaneous -Tissue Removed Subcutaneous -Post Debridement (cm) - Length 4 -Post Debridement (cm) - Width 0.5 -Post Debridement (cm) - Depth 0.6 -Total Square (Post) (cm) 2.0 -Area of Debridement (cm) - Length 4 -Area of Debridement (cm) - Width 0.5 -Total Square (Area) (cm) 2.0 -Tunneling No -Undermining/Tunneling No -Circular Undermining No -Wound/Ulcer Outcome Not Healed -Ulcer Cleansing Rinsed/ Irrigated with Saline -Foul Odor after Cleansing No -Bioengineered Tissue No -Bleeding Controlled with Pressure -Offloading No -Treatment Response Procedure Tolerated Well -Debridement - Subq, 1st 20sq cm Yes Pain Scale: 0-10 Numeric Is Patient Pain Free? 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 Yes WC - Visit Discharge Discharge Condition Stable Ambulatory Status Ambulatory,Cane Transportation Private Auto Assessment/Plan Assessment/Plan (1) Ulcer of right lower extremity with muscle involvement without evidence of necrosis: CODE(S): L97.915 - Non-pressure chronic ulcer of unspecified part of right lower leg with muscle involvement without evidence of necrosis (2) Malnutrition: CODE(S): E46 - Unspecified protein-calorie malnutrition (3) Foot drop, right: CODE(S): M21.371 - Foot drop, right foot (4) Difficulty walking: CODE(S): R26.2 - Difficulty in walking, not elsewhere classified (5) Delayed wound healing: CODE(S): T14.8XXD - Other injury of unspecified body region, subsequent encounter (6) Cellulitis of right lower limb: CODE(S): L03.115 - Cellulitis of right lower limb PLAN: This is a 71-year-old male with multiple medical problems, as discussed above. He had a prior fasciotomy site which was performed remotely as a result of a compartment syndrome secondary to acute arterial ischemia. The patient developed a chronic foot drop as result. This site did eventually heal and has now reopened with continued delayed healing. Subcutaneous excisional debridement was performed as noted in the clinical panel to control recurrent bioburden development. To wash with soap and water. To change dressing daily with Polyheal ag (4x4) with additional secondary dressing including gauze. To moistened with saline if this is starting to get to dry. 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 He has undergone at least 2 right lower extremity vascularization procedures in the right lower extremity by Dr. Scot Yarbrough, the most recent of which was performed in November 2019. The case was recently reviewed with Dr. Yarbrough and he is considered optimized at this time with no additional intervention recommendations. He understands he is at risk for limb loss including amputation. He does not want to proceed forward with an amputation at this time and elects to proceed forward with a palliative wound care plan. To continue to change dressing daily with jaime and to wash with soap and water. To avoid soaking. I also still recommend a nutrition referral. He did have noted increased pain and edema. To continue to follow-up with pain management. He had a deep wound culture obtained last week with the following results: Klebsiella oxytoca, Enterobacter cloacae complex, Stenotrophomonas maltophilia and anaerobic cocci. To continue on levofloxacin. this is now resolved and he completed the antbiotic course. He has significant delays in healing and is at risk for limb loss. Amputation option was also discussed today. He wants proceed forward with his current plan. He was advised to continue with his ankle foot orthotic brace. I answered all of his questions. To return to wound healing center in 3-4 weeks. He would like to continue with a palliative type wound care program at this time. Note: [employer] speech recognition remittance clerk software was used to create portions of this document. Sound-alike and misspelled words, as well as other remittance clerk errors may be contained in the documentation.
== END 2021-08-07 23:59 ==
LOC: WC 13:00
PROVIDERS: Family Provider Family Medicine; PCP Family Medicine; Referring Provider Podiatrist; Visit Provider Podiatrist
DX: L97.915 Non-pressure chronic ulcer of unspecified part of right lower leg with muscle involvement without evidence of necrosis (principal); L03.115 Cellulitis of right lower limb; R26.2 Difficulty in walking, not elsewhere classified; M21.371 Foot drop, right foot; T14.8XXD Other injury of unspecified body region, subsequent encounter; Y83.8 Other surgical procedures as the cause of abnormal reaction of the patient, or of later complication, without mention of misadventure at the time of the procedure
CPT/HCPCS: 11042

== ENCOUNTER 2021-09-06 13:00 | Outpatient (RCR) | payer MEDICARE, MEDICAID, SELFPAY ==
[2021-08-08 00:25] VITALS: BP 159/84; PULSE 80; RESP 18; TEMP 35.7; O2SAT 96; BMI 25.2
[2021-08-09 13:11] VITALS: BP 135/82; PULSE 76; RESP 18; TEMP 36.6; BMI 25.2
--- NOTE | 2021-08-09 14:13 | PN.PCM_ITS ---
History of Present Illness Date of Service: 08/09/21 Chief Complaint: Chronic, non-healing wound of the right leg History of Wound: This 71 year-old male follows up for chronic right leg ulcer. He has recent increased pain and denies redness or odor. He change the dressing with Aquacel Ag. He denies fever, chill, nausea, vomiting. He has exhausted all arterial vascular surgery procedures and is optimized at this time. He has a history of recurrent infections and bacterial contamination but not recently (not recently). He denies infection concerns at this time and changes his dressing daily with silver product. He denies new lower extremity complaints today. He denies reinjury. He wears his brace as advised. He denies redness. His pain is controlled today. He reduced his smoking to 1 to 2 cigarettes daily. He also made nutritional adjustments including avoiding dairy, processed foods, sugar, and processed white flour products. Progress of Wound: stable Objective Data Objective Data Vital Signs: Vital Signs Temp Pulse Resp BP Pulse Ox 97.8 F 76 18 135/82 H 96 08/09/21 13:11 08/09/21 13:11 08/09/21 13:11 08/09/21 13:11 08/08/21 00:25 Weight: 91.138 kg Body Mass Index (BMI) 25.2 Physical Exam Extremity Extremity Narrative: No calf tenderness Diminished pulses Muscle wasting noted Residual subtle dropfoot and prior toe amputation unchanged Decreased pain with cold manipulation Skin Skin Narrative: no purulence, no streaking, no odor, no infection. Deep tissue including fascial compartments are exposed without bone exposure. Adjacent skin is hairless and atrophic. mild distal edema resolved. no additional new deeper tissue noted. Neuro Neuro Narrative: lack of normal epicritic sensation via light touch is consistent with neuropathy status Debridement Note Debridement Note Wound debrided: lateral right leg Wound Grade/Stage: Type of Debridement: Excisional debridement Anesthesia Used: 4% Lidocaine Solution Depth: in the subcutaneous layer Percentage of wound debrided: 100 Instrument Used: #15 blade Tissue Removed: fibrous, devitalized subcutaneous, biofilm, slough Severity: Fat Layer Exposed Amount of bleeding with debridement: Mild Bleeding Controlled with: Pressure Patient tolerated procedure: Patient tolerated procedure well Post-Debridement Measurements and Additional Note: Post-Debridement Measurements/Treatment JENNIFER - Nurse 1 - General Ulcer Assessment Start: 08/09/21 13:10 Freq: Status: Active Protocol: DAREN Activity Type Activity Date Activity User E-Sign Co-Sign Detail Recorded Client Recorded Date Recorded By Document 08/09/21 13:11 DL [id number] 08/09/21 13:18 DL 08/09/21 13:11 - Today's Visit Information Type of service Follow-up 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/MEDICAL CONCIERGE ) Arrival Mode Ambulatory Transfer Assistance None Patient Identification Verified (Name & Yes ) Patient Requires Transmission-Based No Precautions Safety Precautions NA Height and Weight Body Mass Index (BMI) 25.2 BMI Classification Overweight Vital Signs Temperature (97.8 F-99.1 F) 97.8 F Temperature Source Temporal Pulse Rate (60-100) 76 Pulse Location Monitor Respiratory Rate (12-18) 18 Respiratory rate source Observation Blood Pressure (90/60-120/80) 135/82 H Blood Pressure Mean (mm Hg) 99 Source Monitor History Since Last Visit- (Skip if this is Patient's initial visit) Have you changed medications since your No last visit? Any new allergies or adverse reactions No Had a fall/change in ADL's that may No increase risk of falls Signs or symptoms of abuse and/or No neglect since last visit Have you been in the hospital since your No last visit? Has dressing in place as prescribed Yes Has compression in place as prescribed Yes Has offloadiing in place as prescribed N/A Experienced any changes in pain level or No management Left Footwear Slipper Right Footwear Regular Shoe Pain Scale: 0-10 Numeric Is Patient Pain Free? Yes - Nurse 1 - General Ulcer Measurement Start: 08/09/21 13:10 Freq: Status: Active Protocol: Activity Type Activity Date Activity User E-Sign Co-Sign Detail Recorded Client Recorded Date Recorded By Document 08/09/21 13:11 DL [id number] 08/09/21 13:18 DL 08/09/21 13:11 Wound Center Nurse 1 #4 R Lat Lower Leg -Current Size (cm) - Length 4 -Current Size (cm) - Width 0.5 -Current Size (cm) - Depth 0.5 -Total Square Cm 2.0 -Photo Taken Yes -Exudate Amt Small -Wound Margin Thickened & Rolled Under -Granulation Amt None Present (0 %) -Necrosis Amt Large (67-100%) -Necrotic Tissue Type Adherent Slough -Structure Exposed N/A -Texture (Denisa-wound Skin Appearance) Scarring -Moisture (Denisa-wound Skin Appearance) No Abnormality -Color (Denisa-wound Skin Appearance) Hemosiderin Staining -Temperature (Denisa-wound Skin No Abnormality Appearance) (Pt Warm) -Tenderness on Palpation (Denisa-wound No Skin Appearance) -Ulcer Cleansing Rinsed/ Irrigated with Saline -Foul Odor after Cleansing No -Anesthetic Used 4% Lidocaine Solution - Nurse 2 - General Ulcer CM Notes Start: 08/09/21 13:10 Freq: Status: Active Protocol: Activity Type Activity Date Activity User E-Sign Co-Sign Detail Recorded Client Recorded Date Recorded By Document 08/09/21 13:34 [id number] 08/09/21 13:35 08/09/21 13:34 Wound Center Nurse 2 -Time 13:34 -Correct Patient Yes -Correct Side, Site, Position Yes -Correct Procedure Yes -Procedure Performed Yes -Type of Procedure Debridement -Clinical Debridement Subcutaneous -Tissue Removed Subcutaneous -Post Debridement (cm) - Length 4.1 -Post Debridement (cm) - Width 0.6 -Post Debridement (cm) - Depth 0.6 -Total Square (Post) (cm) 2.46 -Area of Debridement (cm) - Length 4.1 -Area of Debridement (cm) - Width 0.6 -Total Square (Area) (cm) 2.46 -Tunneling No -Undermining/Tunneling No -Circular Undermining No -Wound/Ulcer Outcome Not Healed -Ulcer Cleansing Rinsed/ Irrigated with Saline -Foul Odor after Cleansing No -Bioengineered Tissue No -Bleeding Controlled with Pressure -Offloading No -Treatment Response Procedure Tolerated Well -Debridement - Subq, 1st 20sq cm Yes Pain Scale: 0-10 Numeric Is Patient Pain Free? Yes - Nurse 3 - General Ulcer D/C NN Start: 08/09/21 13:10 Freq: Status: Active Protocol: Activity Type Activity Date Activity User E-Sign Co-Sign Detail Recorded Client Recorded Date Recorded By Document 08/09/21 13:41 [facility] [id number] 08/09/21 13:42 [facility] 08/09/21 13:41 Wound Care Nurse 3 #4 R Lat Lower Leg -Ulcer Cleansing Rinsed/ Irrigated with Saline -Foul Odor after Cleansing No -Primary Dressing Applied Promogran Jaime Matter -Primary Dressing Covered/Secured with Dry Gauze -Other Covering PT SECURES W/ TUBI -Promogran Jaime Matter 1 Right -Tubular Bandage Single Layer -Size of Tubigrip Used Size D -Size D ($) 1 Treatment Response Procedure Tolerated Well Pain Scale: 0-10 Numeric Is Patient Pain Free? Yes WC - Visit Discharge Discharge Condition Stable Ambulatory Status Ambulatory Transportation Private Auto Assessment/Plan Assessment/Plan (1) Ulcer of right lower extremity with muscle involvement without evidence of necrosis: CODE(S): L97.915 - Non-pressure chronic ulcer of unspecified part of right lower leg with muscle involvement without evidence of necrosis (2) Malnutrition: CODE(S): E46 - Unspecified protein-calorie malnutrition (3) Foot drop, right: CODE(S): M21.371 - Foot drop, right foot (4) Difficulty walking: CODE(S): R26.2 - Difficulty in walking, not elsewhere classified (5) Delayed wound healing: CODE(S): T14.8XXD - Other injury of unspecified body region, subsequent encounter (6) Cellulitis of right lower limb: CODE(S): L03.115 - Cellulitis of right lower limb PLAN: This is a 71-year-old male with multiple medical problems, as discussed above. He had a prior fasciotomy site which was performed remotely as a result of a compartment syndrome secondary to acute arterial ischemia. The patient developed a chronic foot drop as result. This site did eventually heal and has now reopened with continued delayed healing. Subcutaneous excisional debridement was performed as noted in the clinical panel to control recurrent bioburden development. To wash with soap and water. To change dressing daily with [employer] ag (4x4) w ith additional secondary dressing including gauze. To moistened with saline if this is starting to get to dry. 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 He has undergone at least 2 right lower extremity vascularization procedures in the right lower extremity by Dr. Scot Yarbrough, the most recent of which was performed in November 2019. The case was recently reviewed with Dr. Yarbrough and he is considered optimized at this time with no additional intervention recommendations. He understands he is at risk for limb loss including amputation. He does not want to proceed forward with an amputation at this time and elects to proceed forward with a palliative wound care plan. To continue to change dressing daily with jaime and to wash with soap and water. To avoid soaking. I also still recommend a nutrition referral. He did have noted increased pain and edema. To continue to follow-up with pain management. He had a deep wound culture obtained last week with the following results: Klebsiella oxytoca, Enterobacter cloacae complex, Stenotrophomonas maltophilia and anaerobic cocci. To continue on levofloxacin. this is now resolved and he completed the antbiotic course. He has significant delays in healing and is at risk for limb loss. Amputation option was also discussed today. He wants proceed forward with his current plan. He was advised to continue with his ankle foot orthotic brace. Continue with smoking cessation and nutritional adjustments to optimize healing. I answered all of his questions. To return to wound healing center in 3-4 weeks. He would like to continue with a palliative type wound care program at this time. Note: [employer] speech recognition bow repairer custom software was used to create po rtions of this document. Sound-alike and misspelled words, as well as other bow repairer custom errors may be contained in the documentation.
[2021-09-06 13:05] VITALS: BP 154/78; PULSE 75; RESP 16; TEMP 37; BMI 25.2
--- NOTE | 2021-09-06 15:45 | PCM.WC.PN ---
History of Present Illness Date of Service: 09/06/21 Chief Complaint: Chronic, non-healing wound of the right leg History of Wound: This 71 year-old male follows up for chronic right leg ulcer. He has recent increased pain and denies redness or odor. He change the dressing with Aquacel Ag. He denies fever, chill, nausea, vomiting. He has exhausted all arterial vascular surgery procedures and is optimized at this time. He has a history of recurrent infections and bacterial contamination but not recently (not recently). He denies infection concerns at this time and changes his dressing daily with silver product. He denies new lower extremity complaints today. He denies reinjury. He wears his brace as advised. He denies redness. His pain is controlled today. He reduced his smoking to 1 to 2 cigarettes daily. He no longer covers his wound with a gauze. He uses a different type of dressing material Progress of Wound: stable Objective Data Objective Data Vital Signs: Vital Signs Temp Pulse Resp BP Pulse Ox 98.6 F 75 16 154/78 H 96 09/06/21 13:05 09/06/21 13:05 09/06/21 13:05 09/06/21 13:05 08/08/21 00:25 Oxygen Delivery Method Room Air Weight: 91.138 kg Body Mass Index (BMI) 25.2 Physical Exam Extremity Extremity Narrative: No calf tenderness Diminished pulses Muscle wasting noted Residual subtle dropfoot and prior toe amputation unchanged Decreased pain with cold manipulation Skin Skin Narrative: no purulence, no streaking, no odor, no infection. Deep tissue including fascial compartments are exposed without bone exposure. Adjacent skin is hairless and atrophic. no additional new deeper tissue noted. The base is now granular as opposed to exceedingly fibrous nature Neuro Neuro Narrative: lack of normal epicritic sensation via light touch is consistent with neuropathy status Debridement Note Debridement Note Wound debrided: right leg Wound Grade/Stage: Type of Debridement: Excisional debridement Anesthesia Used: 4% Lidocaine Solution Depth: in the subcutaneous layer Percentage of wound debrided: 100 Instrument Used: #15 blade Tissue Removed: fibrous, devitalized subcutaneous, biofilm, slough Severity: Fat Layer Exposed Amount of bleeding with debridement: Mild Bleeding Controlled with: Pressure Patient tolerated procedure: Patient tolerated procedure well Post-Debridement Measurements and Additional Note: Post-Debridement Measurements/Treatment WC - Nurse 1 - General Ulcer Assessment Start: 08/09/21 13:10 Freq: Status: Active Protocol: WC.LOWEXT Activity Type Activity Date Activity User E-Sign Co-Sign Detail Recorded Client Recorded Date Recorded By Document 08/09/21 13:11 DL [id number] 08/09/21 13:18 DL Document 09/06/21 13:05 [facility] [id number] 09/06/21 13:11 BM 08/09/21 09/06/21 13:11 13:05 WC - Today's Visit Information Type of service Follow-up Visit Follow-up 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/NURSING HOME DIRECTOR (Physician/NURSING HOME DIRECTOR ) ) Arrival Mode Ambulatory Ambulatory,Cane Transfer Assistance None None Patient Identification Verified (Name & Yes Yes ) Patient Requires Transmission-Based No No Precautions Safety Precautions NA Height and Weight Body Mass Index (BMI) 25.2 25.2 BMI Classification Overweight Overweight Vital Signs Temperature (97.8 F-99.1 F) 97.8 F 98.6 F Temperature Source Temporal Temporal Pulse Rate (60-100) 76 75 Pulse Location Monitor Monitor Respiratory Rate (12-18) 18 16 Respiratory rate source Observation Observation Oxygen Delivery Method Room Air Blood Pressure (90/60-120/80) 135/82 H 154/78 H Blood Pressure Mean (mm Hg) 99 103 Source Monitor Monitor Position Sitting Blood Pressure Location Left Arm History Since Last Visit- (Skip if this is Patient's initial visit) Have you changed medications since your No No last visit? Any new allergies or adverse reactions No No Had a fall/change in ADL's that may No No increase risk of falls Signs or symptoms of abuse and/or No No neglect since last visit Have you been in the hospital since your No No last visit? Has dressing in place as prescribed Yes Yes Has compression in place as prescribed Yes Yes Has offloadiing in place as prescribed N/A N/A Experienced any changes in pain level or No No management Left Footwear Slipper Regular Shoe Right Footwear Regular Shoe Regular Shoe Pain Scale: 0-10 Numeric Is Patient Pain Free? Yes No WOUND -Description Aching -Intensity 3 -Duration (hours) Chronic -Pain Behavior No Change in Behavior -Pain Aggravating Factors Sitting -Alleviating Factors/Interventions Turning/ Repositioning, Distraction, Will continue to monitor, Patient denies need for intervention, Emotional Support WC - Nurse 1 - General Ulcer Measurement Start: 08/09/21 13:10 Freq: Status: Active Protocol: Activity Type Activity Date Activity User E-Sign Co-Sign Detail Recorded Client Recorded Date Recorded By Document 08/09/21 13:11 DL [id number] 08/09/21 13:18 DL Document 09/06/21 13:05 BM [id number] 09/06/21 13:11 BMF 08/09/21 09/06/21 13:11 13:05 Wound Center Nurse 1 #4 R Lat Lower Leg -Combined with other wound No -Current Size (cm) - Length 4 4.5 -Current Size (cm) - Width 0.5 0.4 -Current Size (cm) - Depth 0.5 0.5 -Total Square Cm 2.0 1.80 -Date of Last Picture (Recall this 09/06/21 field) -Photo Taken Yes Yes -Epithelialization None Present -Tunneling No -Undermining/Tunneling No -Circular Undermining No -Exudate Amt Small Medium -Exudate Type Serous -Wound Margin Thickened & Thickened Rolled Under -Granulation Amt None Present (0 None Present (0 %) %) -Slough/Fibrin Yes -Necrosis Amt Large (67-100%) Large (67-100%) -Necrotic Tissue Type Adherent Slough Adherent Slough -Structure Exposed N/A -Texture (Denisa-wound Skin Appearance) Scarring Assessed, Scarring -Moisture (Denisa-wound Skin Appearance) No Abnormality Assessed -Color (Denisa-wound Skin Appearance) Hemosiderin Assessed Staining -Temperature (Denisa-wound Skin No Abnormality No Abnormality Appearance) (Pt Warm) (Pt Warm) -Tenderness on Palpation (Denisa-wound No Yes Skin Appearance) -Ulcer Cleansing Rinsed/ Rinsed/ Irrigated with Irrigated with Saline Saline -Foul Odor after Cleansing No No -Anesthetic Used 4% Lidocaine 5% Lidocaine Solution Gel Right Calf (cm) 31.9 Right Ankle (cm) 20 - Nurse 2 - General Ulcer CM Notes Start: 08/09/21 13:10 Freq: Status: Active Protocol: Activity Type Activity Date Activity User E-Sign Co-Sign Detail Recorded Client Recorded Date Recorded By Document 08/09/21 13:34 [id number] 08/09/21 13:35 Document 09/06/21 13:19 [id number] 09/06/21 13:20 08/09/21 09/06/21 13:34 13:19 Wound Center Nurse 2 #4 R Lat Lower Leg -Time 13:34 13:19 -Correct Patient Yes Yes -Correct Side, Site, Position Yes Yes -Correct Procedure Yes Yes -Procedure Performed Yes Yes -Type of Procedure Debridement Debridement -Clinical Debridement Subcutaneous Subcutaneous -Tissue Removed Subcutaneous Subcutaneous -Post Debridement (cm) - Length 4.1 4.5 -Post Debridement (cm) - Width 0.6 0.5 -Post Debridement (cm) - Depth 0.6 0.5 -Total Square (Post) (cm) 2.46 2.25 -Area of Debridement (cm) - Length 4.1 4.5 -Area of Debridement (cm) - Width 0.6 0.5 -Total Square (Area) (cm) 2.46 2.25 -Tunneling No No -Undermining/Tunneling No No -Circular Undermining No No -Wound/Ulcer Outcome Not Healed Not Healed -Ulcer Cleansing Rinsed/ Rinsed/ Irrigated with Irrigated with Saline Saline -Foul Odor after Cleansing No No -Bioengineered Tissue No No -Bleeding Controlled with Pressure Pressure -Treatment Response Procedure Procedure Tolerated Well Tolerated Well -Offloading No No -Debridement - Subq, 1st 20sq cm Yes Yes Pain Scale: 0-10 Numeric Is Patient Pain Free? Yes Yes WC - Nurse 3 - General Ulcer D/C NN Start: 08/09/21 13:10 Freq: Status: Active Protocol: Activity Type Activity Date Activity User E-Sign Co-Sign Detail Recorded Client Recorded Date Recorded By Document 08/09/21 13:41 [facility] [id number] 08/09/21 13:42 [facility] Document 09/06/21 13:27 [place] [id number] 09/06/21 13:28 [place] 08/09/21 09/06/21 13:41 13:27 Wound Care Nurse 3 #4 R Lat Lower Leg -Ulcer Cleansing Rinsed/ Rinsed/ Irrigated with Irrigated with Saline Saline -Foul Odor after Cleansing No No -Negative Pressure Wound Therapy N/A -Primary Dressing Applied Promogran Mepilex Border, Park Matter Promogran Park Matter -Primary Dressing Covered/Secured with Dry Gauze -Other Covering PT SECURES W/ TUBI -Mepilex Border 1 -Promogran Park Matter 1 1 Right -Compression Wrap Surepress ($) -Tubular Bandage Single Layer -Size of Tubigrip Used Size D Size D -Size D ($) 1 Treatment Response Procedure Tolerated Well Pain Scale: 0-10 Numeric Is Patient Pain Free? Yes Yes WC - Visit Discharge Discharge Condition Stable Stable Ambulatory Status Ambulatory Ambulatory Transportation Private Auto Private Auto Medication Reconcilliation completed & Yes provided to patient/care provider Clinical Summary of Care Provided Yes Assessment/Plan Assessment/Plan (1) Ulcer of right lower extremity with muscle involvement without evidence of necrosis: CODE(S): L97.915 - Non-pressure chronic ulcer of unspecified part of right lower leg with muscle involvement without evidence of necrosis (2) Malnutrition: CODE(S): E46 - Unspecified protein-calorie malnutrition (3) Foot drop, right: CODE(S): M21.371 - Foot drop, right foot (4) Difficulty walking: CODE(S): R26.2 - Difficulty in walking, not elsewhere classified (5) Delayed wound healing: CODE(S): T14.8XXD - Other injury of unspecified body region, subsequent encounter (6) Cellulitis of right lower limb: CODE(S): L03.115 - Cellulitis of right lower limb PLAN: This is a 71-year-old male with multiple medical problems, as discussed above. He had a prior fasciotomy site which was performed remotely as a result of a compartment syndrome secondary to acute arterial ischemia. The patient developed a chronic foot drop as result. This site did eventually heal and has now reopened with continued delayed healing. Subcutaneous excisional debridement was performed as noted in the clinical panel to control recurrent bioburden development. To wash with soap and water. To change dressing daily with iStoryTime (4x4) with additional secondary dressing. It is no clear that he changed his secondary dressing from a gauze to a Tegaderm type material. 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 He has undergone at least 2 right lower extremity vascularization procedures in the right lower extremity by Dr. Scot Yarbrough, the most recent of which was performed in November 2019. The case was recently reviewed with Dr. Yarbrough and he is considered optimized at this time with no additional intervention recommendations. He understands he is at risk for limb loss including amputation. He does not want to proceed forward with an amputation at this time and elects to proceed forward with a palliative wound care plan. To continue to change dressing daily with park and to wash with soap and water. To avoid soaking. I also still recommend a nutrition referral. He did have noted increased pain and edema. To continue to follow-up with pain management. He had a deep wound culture obtained last week with the following results: Klebsiella oxytoca, Enterobacter cloacae complex, Stenotrophomonas maltophilia and anaerobic cocci. To continue on levofloxacin. this is now resolved and he completed the antbiotic course. He has significant delays in healing and is at risk for limb loss. Amputation option was also discussed today. He wants proceed forward with his current plan. He was advised to continue with his ankle foot orthotic brace. Continue with smoking cessation and nutritional adjustments to optimize healing. I answered all of his questions. To return to wound healing center in 3-4 weeks. He would like to continue with a palliative type wound care program at this time. Note: [employer] speech recognition professor of languages software was used to create portions of this document. Sound-alike and misspelled words, as well as other professor of languages errors may be contained in the documentation.
== END 2021-09-07 23:59 | disposition home or self-care (01) ==
LOC: WC 13:00
PROVIDERS: Family Provider Family Medicine; PCP Family Medicine; Referring Provider Podiatrist; Visit Provider Podiatrist
DX: L97.812 Non-pressure chronic ulcer of other part of right lower leg with fat layer exposed (principal); L03.115 Cellulitis of right lower limb; R26.2 Difficulty in walking, not elsewhere classified; F17.210 Nicotine dependence, cigarettes, uncomplicated; M21.371 Foot drop, right foot
CPT/HCPCS: 11042

== ENCOUNTER 2021-10-11 13:42 | Outpatient (RCR) | payer MEDICARE, MEDICAID, SELFPAY ==
[2021-09-08 00:27] VITALS: BP 154/78; PULSE 75; RESP 16; TEMP 37; O2SAT 96; BMI 25.2
[2021-10-11 13:48] VITALS: BP 159/88; PULSE 81; TEMP 35.7; BMI 25.2
--- NOTE | 2021-10-11 15:23 | PCM.WC.PN ---
History of Present Illness Date of Service: 10/11/21 Chief Complaint: Chronic, non-healing wound of the right leg History of Wound: This 71 year-old male follows up for chronic right leg ulcer. He has recent increased pain and denies redness or odor. He change the dressing with Aquacel Ag. He denies fever, chill, nausea, vomiting. He has exhausted all arterial vascular surgery procedures and is optimized at this time. He has a history of recurrent infections and bacterial contamination but not recently (not recently). He denies infection concerns at this time and changes his dressing daily with silver product. He denies new lower extremity complaints today. He denies reinjury. He wears his brace as advised. He denies redness. His pain is controlled today. He brought his dressing supplies into demonstrate what he has been using. He no longer uses gauze. Progress of Wound: Stable Objective Data Objective Data Vital Signs: Vital Signs Temp Pulse Resp BP Pulse Ox 96.2 F L 81 16 159/88 H 96 10/11/21 13:48 10/11/21 13:48 09/08/21 00:27 10/11/21 13:48 09/08/21 00:27 Weight: 91.138 kg Body Mass Index (BMI) 25.2 Physical Exam Extremity Extremity Narrative: No calf tenderness Diminished pulses Muscle wasting noted Residual subtle dropfoot and prior toe amputation unchanged Decreased pain with cold manipulation Skin Skin Narrative: no purulence, no streaking, no odor, no infection. Deep tissue including fascial compartments are exposed without bone exposure. Adjacent skin is hairless and atrophic. no additional new deeper tissue noted. The base is now granular as opposed to exceedingly fibrous nature Neuro Neuro Narrative: lack of normal epicritic sensation via light touch is consistent with neuropathy status Debridement Note Debridement Note Wound debrided: right leg Wound Grade/Stage: Type of Debridement: Excisional debridement Anesthesia Used: 4% Lidocaine Solution Depth: in the subcutaneous layer Percentage of wound debrided: 100 Instrument Used: #15 blade Tissue Removed: fibrous, devitalized subcutaneous, biofilm, slough Severity: Fat Layer Exposed Amount of bleeding with debridement: Mild Bleeding Controlled with: Pressure Patient tolerated procedure: Patient tolerated procedure well Post-Debridement Measurements and Additional Note: Post-Debridement Measurements/Treatment JENNIFER - Nurse 1 - General Ulcer Assessment Start: 10/11/21 13:47 Freq: Status: Active Protocol: WC.LOWEXT Activity Type Activity Date Activity User E-Sign Co-Sign Detail Recorded Client Recorded Date Recorded By Document 10/11/21 13:48 [place] [id number] 10/11/21 13:56 W[place] 10/11/21 13:48 - Today's Visit Information Type of service Follow-up 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/SENIOR CONSTRUCTION MANAGER ) Arrival Mode Ambulatory Patient Identification Verified (Name & Yes ) Patient Requires Transmission-Based No Precautions Height and Weight Body Mass Index (BMI) 25.2 BMI Classification Overweight Vital Signs Temperature (97.8 F-99.1 F) 96.2 F L Temperature Source Temporal Pulse Rate (60-100) 81 Pulse Location Monitor Blood Pressure (90/60-120/80) 159/88 H Blood Pressure Mean (mm Hg) 111 Source Monitor History Since Last Visit- (Skip if this is Patient's initial visit) Have you changed medications since your No last visit? Any new allergies or adverse reactions No Had a fall/change in ADL's that may No increase risk of falls Signs or symptoms of abuse and/or No neglect since last visit Have you been in the hospital since your No last visit? Has dressing in place as prescribed Yes Has compression in place as prescribed Yes Has offloadiing in place as prescribed N/A Experienced any changes in pain level or No management Left Footwear Regular Shoe Right Footwear Regular Shoe Pain Scale: 0-10 Numeric Is Patient Pain Free? Yes - Nurse 1 - General Ulcer Measurement Start: 10/11/21 13:47 Freq: Status: Active Protocol: Activity Type Activity Date Activity User E-Sign Co-Sign Detail Recorded Client Recorded Date Recorded By Document 10/11/21 13:48 [place] [id number] 10/11/21 13:56 [place] 10/11/21 13:48 Wound Center Nurse 1 #4 R Lat Lower Leg -Combined with other wound No -Current Size (cm) - Length 4.6 -Current Size (cm) - Width 0.5 -Current Size (cm) - Depth 0.5 -Total Square Cm 2.30 -Date of Last Picture (Recall this 10/11/21 field) -Photo Taken Yes -Epithelialization None Present -Tunneling No -Undermining/Tunneling No -Circular Undermining No -Change in Wound Grade/Stage No -Exudate Amt Medium -Exudate Type Serosanguineous -Wound Margin Distinct, Outline Attached -Granulation Amt Medium (34-66%) -Granulation Quality N/A,Pale,[place] -Slough/Fibrin Yes -Necrosis Amt Large (67-100%) -Necrotic Tissue Type Adherent Slough -Structure Exposed N/A -Texture (Denisa-wound Skin Appearance) Assessed,Callus -Moisture (Denisa-wound Skin Appearance) No Abnormality, Assessed -Color (Denisa-wound Skin Appearance) No Abnormality, Assessed -Temperature (Denisa-wound Skin No Abnormality Appearance) (Pt Warm) -Tenderness on Palpation (Denisa-wound Yes Skin Appearance) -Ulcer Cleansing Rinsed/ Irrigated with Saline -Foul Odor after Cleansing No -Anesthetic Used 4% Lidocaine Solution JENNIFER - Nurse 2 - General Ulcer CM Notes Start: 10/11/21 13:47 Freq: Status: Active Protocol: Activity Type Activity Date Activity User E-Sign Co-Sign Detail Recorded Client Recorded Date Recorded By Document 10/11/21 14:20 BLANKA [id number] 10/11/21 14:24 BLANKA 10/11/21 14:20 Wound Center Nurse 2 -Time 14:20 -Correct Patient Yes -Correct Side, Site, Position Yes -Correct Procedure Yes -Procedure Performed Yes -Type of Procedure Debridement -Clinical Debridement Subcutaneous -Tissue Removed Subcutaneous -Post Debridement (cm) - Length 4.6 -Post Debridement (cm) - Width 0.6 -Post Debridement (cm) - Depth 0.5 -Total Square (Post) (cm) 2.76 -Area of Debridement (cm) - Length 4.6 -Area of Debridement (cm) - Width 0.6 -Total Square (Area) (cm) 2.76 -Tunneling No -Undermining/Tunneling No -Circular Undermining No -Wound/Ulcer Outcome Not Healed -Ulcer Cleansing Rinsed/ Irrigated with Saline -Foul Odor after Cleansing No -Bioengineered Tissue No -Bleeding Controlled with Pressure -Treatment Response Procedure Tolerated Well -Offloading No -Debridement - Subq, 1st 20sq cm Yes Pain Scale: 0-10 Numeric Is Patient Pain Free? Yes JENNIFER - Nurse 3 - General Ulcer D/C NN Start: 10/11/21 13:47 Freq: Status: Active Protocol: Activity Type Activity Date Activity User E-Sign Co-Sign Detail Recorded Client Recorded Date Recorded By Document 10/11/21 14:26 [facility] [id number] 10/11/21 14:27 [facility] 10/11/21 14:26 Wound Care Nurse 3 #4 R Lat Lower Leg -Ulcer Cleansing Rinsed/ Irrigated with Saline -Foul Odor after Cleansing No -Primary Dressing Applied Promogran Jaime Matter -Other Dressing DRSG PER [place] SENIOR MANUFACTURING SUPERVISOR -Primary Dressing Covered/Secured with Other -Other Covering TEGADERM -Promogran Jaime Matter 1 Right -Other PT REFUSES TUBI COLOR PRINT INSPECTOR Treatment Response Procedure Tolerated Well Pain Scale: 0-10 Numeric Is Patient Pain Free? Yes WC - Visit Discharge Discharge Condition Stable Ambulatory Status Ambulatory,Cane Transportation Private Auto Assessment/Plan Assessment/Plan (1) Ulcer of right lower extremity with muscle involvement without evidence of necrosis: CODE(S): L97.915 - Non-pressure chronic ulcer of unspecified part of right lower leg with muscle involvement without evidence of necrosis (2) Malnutrition: CODE(S): E46 - Unspecified protein-calorie malnutrition (3) Foot drop, right: CODE(S): M21.371 - Foot drop, right foot (4) Difficulty walking: CODE(S): R26.2 - Difficulty in walking, not elsewhere classified (5) Delayed wound healing: CODE(S): T14.8XXD - Other injury of unspecified body region, subsequent encounter (6) Cellulitis of right lower limb: CODE(S): L03.115 - Cellulitis of right lower limb PLAN: This is a 71-year-old male with multiple medical problems, as discussed above. He had a prior fasciotomy site which was performed remotely as a result of a compartment syndrome secondary to acute arterial ischemia. The patient developed a chronic foot drop as result. This site did eventually heal and has now reopened with continued delayed healing. Subcutaneous excisional debridement was performed as noted in the clinical panel to control recurrent bioburden development. To wash with soap and water. To change dressing daily with jaime, small thin gauze, and then tegaderm material. To wash with soap and water. To avoid soaking. 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 He has undergone at least 2 right lower extremity vascularization procedures in the right lower extremity by Dr. Scot Yarbrough, the most recent of which was performed in November 2019. The case was recently reviewed with Dr. Yarbrough and he is considered optimized at this time with no additional intervention recommendations. He understands he is at risk for limb loss including amputation. He does not want to proceed forward with an amputation at this time and elects to proceed forward with a palliative wound care plan. I also still recommend a nutrition referral. He did have noted increased pain and edema. To continue to follow-up with pain management. He was reassured no local signs of infection are noted. To monitor. He has significant delays in healing and is at risk for limb loss. Amputation option was also discussed today. He wants proceed forward with his current plan. He was advised to continue with his ankle foot orthotic brace. Continue with smoking cessation and nutritional adjustments to optimize healing. I answered all of his questions. To return to wound healing center in 3-4 weeks. He would like to continue with a palliative type wound care program at this time. Note: [employer] speech recognition visitor services coordinator software was used to create portions of this document. Sound-alike and misspelled words, as well as other visitor services coordinator errors may be contained in the documentation.
== END 2021-11-07 23:59 | disposition home or self-care (01) ==
LOC: WC 13:42
PROVIDERS: Family Provider Family Medicine; PCP Family Medicine; Referring Provider Podiatrist; Visit Provider Podiatrist
DX: L97.812 Non-pressure chronic ulcer of other part of right lower leg with fat layer exposed (principal); L03.115 Cellulitis of right lower limb; M21.371 Foot drop, right foot; R26.2 Difficulty in walking, not elsewhere classified; Z87.891 Personal history of nicotine dependence
CPT/HCPCS: 11042